=== PATIENT | female | born 1955 | race Caucasian/White ===

== ENCOUNTER 2016-02-04 07:40 | Inpatient (IN) | payer OTHER ==
[2016-02-04] VITALS (9 sets, daily range): BP systolic 107–126; BP diastolic 61–95; PULSE 54–116; TEMP 36.8–38.1; O2SAT 90–95; Ht 165.1 cm; Wt 108.5 kg
[~2016-02-04] VITALS: Ht 165.1 cm; Wt 108.5 kg
[~2016-02-04 07:40] MED LIST: ACET-1256 PO; CHOL100010 PO; DXY100 PO; MULT-506 PO; PRED-301 PO; PXL20 PO; RANI300T2 PO; TPRSR/25 PO; TRAM-10 PO
[2016-02-04] MEDS ORDERED: ALBUT/IPRATROP 3MG/0.5MG NEB 3 ML VIAL INH STA (07:56)
--- NOTE | 2016-02-04 08:04 | EMERGENCY ROOM VISIT NOTE ---
History Report prepared by Rupali: Khadijah Fisher Under the Supervision of: Dr. Michael Kang M.D. First contact with patient: 07:46 Chief Complaint: RESPIRATORY PROBLEMS Stated Complaint: SHORTNESS OF BREATH History of Present Illness The patient is a 60 year old female who presents to the Emergency Room with complaints of persistent shortness of breath that began 2 days ago. Her shortness of breath is worsened with exertion. The patient was admitted to the hospital 2 or 3 weeks ago for frequent PVCs and had an echo, Holter monitor, and nuclear med scan. She also had a chest CT which was negative. She was put on 25 mg of Toprol at that time, which has since increased to 25 mg Toprol in the morning and 25 mg Toprol at night. Since being put on the medication, she has noticed increasing swelling to her bilateral feet. She has also developed redness on the top of her feet to her mid-calves. The patient called Dr. Barkley last week regarding her foot swelling but he did not think it was related to the Toprol. 2 days ago, the patient had a pulmonary function test and had a nebulizer treatment. She notes that later in the evening that day is when she started feeling short of breath. Currently, she has a cough, but she can not cough up any sputum. She feels as if she were able to cough up sputum she would be relieved of her shortness of breath. The patient admits that she is feeling anxious and is unsure if any of her symptoms are related to anxiety. She is on hydrochlorothiazide. She denies any pain. She is not on blood thinners. Source of History: patient Onset: 2 days ago Position: other (Global - SOB) Timing: other (persistent) Modifying Factors (Worsening): exertion Associated Symptoms: + cough Note: Other symptoms: bilateral foot swelling and redness Review of Systems See HPI for pertinent positives & negatives. A total of 10 systems reviewed and were otherwise negative. Past Medical & Surgical Medical Problems: (1) Diabetes (2) Lumbar disc herniation with radiculopathy (3) Shortness of breath (4) SOB (shortness of breath) Surgical Problems: (1) H/O bilateral mastectomy Family History Cancer Heart disease Hypertension Social History Smoking Status: Former Smoker Drug Use: none Marital Status: single Housing Status: lives alone Occupation Status: employed Current/Historical Medications Scheduled Cholecalciferol (Vitamin D), 1,000 UNITS PO DAILY Hydrochlorothiazide (Hydrochlorothiazide), 25 MG PO DAILY Metformin Hcl (Glucophage), 1,000 MG PO BID Metoprolol Succinate (Metoprolol Succinate ER), 25 MG PO DAILY Multivitamin (Multivitamin), 1 TAB PO DAILY Paroxetine (Paroxetine HCl), 20 MG PO QAM Prednisone (Prednisone), 5 MG PO DAILY Ranitidine (Zantac), 300 MG PO DAILY Scheduled PRN Acetaminophen (Tylenol), 1,000 MG PO Q6 PRN for Pain Clonazepam (Clonazepam), 0.5 MG PO DAILY PRN for Anxiety Tramadol (Ultram), 1 TAB PO TID PRN for prn Allergies Coded Allergies: Aspirin (Verified Allergy, Unknown, 02/04/16) Ibuprofen (Verified Allergy, Unknown, 02/04/16) Tamoxifen (Verified Allergy, Unknown, 02/04/16) Physical Exam Vital Signs Date Time Temp Pulse Resp B/P Pulse Ox O2 Delivery O2 Flow Rate FiO2 02/04/16 10:03 105 02/04/16 09:58 109 18 121/62 93 Room Air 02/04/16 09:32 95 Room Air 02/04/16 09:12 104 18 105/71 94 Room Air 02/04/16 08:06 94 Room Air 02/04/16 07:59 109 02/04/16 07:43 36.9 112 20 143/93 95 Physical Exam GENERAL: Patient is a healthy-appearing well-nourished 60 year old female HEAD: Normocephalic atraumatic EYES: Ocular movements intact pupils equal and react to light OROPHARYNX mucous membranes are moist no exudates present no erythema or edema present NECK: Supple no nuchal rigidity CHEST: Good equal expansion LUNGS: Distant breath sounds to auscultation CARDIAC: Normal S1 and S2 ABDOMEN: Soft nontender no guarding BACK: No CVA tenderness EXTREMITIES: No pain upon palpation normal muscle strength in all groups no clubbing or cyanosis. 2+ bilateral pulmonary edema going senior care up her calves and areas of redness extending up the calves as well. NEURO: Patient is following commands is answering questions appropriately. Alert and oriented x3 Cranial Nerves 2-12 grossly intact Medical Decision & Procedures ER Provider Diagnostic Interpretation: X-ray results as stated below per my interpretation and radiologist interpretation. Other radiology results as stated below per my review and radiologist interpretation: CHEST ONE VIEW PORTABLE CLINICAL HISTORY: Pt c/o SOB dyspnea COMPARISON STUDY: 12/26/2015 FINDINGS: Components of congestive heart. Increased prominence of pulmonary vasculature. Mild cardiomegaly. IMPRESSION: Congestive heart failure Electronically signed by: Aguila Estrada M.D. 02/04/2016 8:[address] ANGIOGRAM OF THE CHEST CLINICAL HISTORY: Shortness of breath. Suspected pulmonary embolism. COMPARISON STUDY: 01/04/2016 TECHNIQUE: Following the IV administration of 94 mL of Optiray-320, CT angiogram of the thorax was performed from the thoracic inlet to the lung bases utilizing the pulmonary embolus protocol. Images are reviewed in the axial, sagittal, and coronal planes. IV contrast was administered without complication. MIP imaging was performed. CT DOSE: 564.08 mGycm FINDINGS: There are pathologically enlarged mediastinal and hilar lymph nodes. There is a 2 cm right paratracheal lymph node. The 17 mm subcarinal lymph node. There is a 15 mm right hilar lymph node. There is a 15 mm left hilar lymph node. There is no pathologic axillary lymphadenopathy. There was no evidence of thoracic aortic dilatation. There is respiratory motion artifact limiting evaluation of the lower lobe pulmonary arteries. There are no filling defects to indicate acute pulmonary embolism. No pleural effusions are visualized. There is interlobular septal thickening most pronounced in the upper lung zones. There are groundglass opacities with a slight mosaic pattern again within upper lung zone predominance. There is lingular atelectasis/consolidation. There is left lower lobe linear atelectatic change The heart is enlarged. There is a stable 38 x 23 x 20 mm left anterior chest wall nodule. There is a stable sclerotic lesion involving the left scapular spine IMPRESSION: 1. Study compromised by respiratory motion artifact. No central emboli identified. 2. Persistent interlobular septal thickening with scattered groundglass opacities. 3. Mediastinal and hilar lymphadenopathy 4. Stable 3.8 x 2.3 x 2 cm left anterior chest wall mass 5. Lingular atelectasis/consolidation 6. Stable area of sclerosis involving the left scapular spine Electronically signed by: Kirill Mujica M.D. 02/04/2016 9:11 AM Laboratory Results 02/04/16 08:00 Red Blood Count 4.95, Mean Corpuscular Volume 91.7, Mean Corpuscular Hemoglobin 29.9, Mean Corpuscular Hemoglobin Concent 32.6, Mean Platelet Volume 10.9, Neutrophils (%) (Auto) 75.0, Lymphocytes (%) (Auto) 16.1, Monocytes (%) (Auto) 7.3, Eosinophils (%) (Auto) 0.5, Basophils (%) (Auto) 0.3, Neutrophils # (Auto) 7.71, Lymphocytes # (Auto) 1.65, Monocytes # (Auto) 0.75, Eosinophils # (Auto) 0.05, Basophils # (Auto) 0.03 02/04/16 08:00 Test 02/04/16 07:57 02/04/16 08:00 02/04/16 08:05 02/04/16 09:08 Bedside Hemoglobin 16.3 g/dl (12.0-16.0) Bedside Hematocrit 48 % (37-47) Bedside Sodium 141 mEq/L (135-144) Bedside Potassium 4.1 mEq/L (3.3-5.0) Bedside Chloride 102 mEq/L (101-112) Bedside Total CO2 23 mEq/l (24-31) Bedside Blood Urea Nitrogen 13 mg/dl (7-18) Bedside Creatinine 0.5 mg/dl (0.6-1.3) Bedside Glucose (other) 158 mg/dl (70-99) Bedside Ionized Calcium (Goldy) 1.11 mmol/l (1.12-1.32) White Blood Count 10.27 K/uL (4.8-10.8) Red Blood Count 4.95 M/uL (4.2-5.4) Hemoglobin 14.8 g/dL (12.0-16.0) Hematocrit 45.4 % (37-47) Mean Corpuscular Volume 91.7 fL (80-100) Mean Corpuscular Hemoglobin 29.9 pg (25-34) Mean Corpuscular Hemoglobin Concent 32.6 g/dl (32-36) Platelet Count 296 K/uL (130-400) Mean Platelet Volume 10.9 fL (7.4-10.4) Neutrophils (%) (Auto) 75.0 % Lymphocytes (%) (Auto) 16.1 % Monocytes (%) (Auto) 7.3 % Eosinophils (%) (Auto) 0.5 % Basophils (%) (Auto) 0.3 % Neutrophils # (Auto) 7.71 K/uL (1.4-6.5) Lymphocytes # (Auto) 1.65 K/uL (1.2-3.4) Monocytes # (Auto) 0.75 K/uL (0.11-0.59) Eosinophils # (Auto) 0.05 K/uL (0-0.5) Basophils # (Auto) 0.03 K/uL (0-0.2) RDW Standard Deviation 49.4 fL (36.4-46.3) RDW Coefficient of Variation 14.7 % (11.5-14.5) Immature Granulocyte % (Auto) 0.8 % Immature Granulocyte # (Auto) 0.08 K/uL (0.00-0.02) Anion Gap 11.0 mmol/L (3-11) Est Creatinine Clear Calc Drug Dose 112.4 ml/min Estimated GFR () 110.0 Estimated GFR (Non- 94.9 BUN/Creatinine Ratio 17.3 (10-20) Calcium Level 8.7 mg/dl (8.5-10.1) Total Bilirubin 0.6 mg/dl (0.2-1) Aspartate Amino Transf (AST/SGOT) 34 U/L (15-37) Alanine Aminotransferase (ALT/SGPT) 43 U/L (12-78) Alkaline Phosphatase 64 U/L (45-117) Total Creatine Kinase 64 U/L (26-192) Creatine Kinase MB 1.7 ng/ml (0.5-3.6) Creatine Kinase MB Ratio 2.7 (0-3.0) Troponin I 0.030 ng/ml (0-0.045) Pro-B-Type Natriuretic Peptide 6008 pg/ml (0-900) Total Protein 6.6 gm/dl (6.4-8.2) Albumin 3.3 gm/dl (3.4-5.0) Globulin 3.3 gm/dl (2.5-4.0) Albumin/Globulin Ratio 1.0 (0.9-2) Influenza Type A (RT-PCR) Neg for Influ A (NEG) Influenza Type B (RT-PCR) Neg for Influ B (NEG) Bedside D-Dimer > 450 ng/mlFEU (0-450) Urine Color DK YELLOW Urine Appearance CLEAR (CLEAR) Urine pH 5.0 (4.5-7.5) Urine Specific Minto 1.035 (1.000-1.030) Urine Protein 1+ (NEG) Urine Glucose (UA) NEG (NEG) Urine Ketones TRACE (NEG) Urine Occult Blood NEG (NEG) Urine Nitrite NEG (NEG) Urine Bilirubin NEG (NEG) Urine Urobilinogen NEG (NEG) Urine Leukocyte Esterase NEG (NEG) Urine WBC (Auto) 1-5 /hpf (0-5) Urine RBC (Auto) 0-4 /hpf (0-4) Urine Hyaline Casts (Auto) 5-10 /lpf (0-5) Urine Epithelial Cells (Auto) 20-30 /lpf (0-5) Urine Bacteria (Auto) NEG (NEG) Labs reviewed by ED physician. Medications Administered Medications (Trade) Dose Ordered Sig/Omkar Route Start Time Stop Time Status Last Admin Dose Admin Albuterol/ Ipratropium (Duoneb) 3 ml NOW STAT INH 02/04/16 07:56 02/04/16 07:57 DC 02/04/16 08:04 3 ML Furosemide (Lasix Inj) 40 mg NOW STAT IV 02/04/16 08:30 02/04/16 08:31 DC 02/04/16 08:45 40 MG ECG Indication: SOB/dyspnea Rate (beats per minute): 109 Rhythm: sinus tachycardia Findings: PVC, no acute ischemic change, other (old anterior infarct) ED Course 0748: Past medical records reviewed. The patient was evaluated in room A9. A complete history and physical examination was performed. 0756: Ordered DuoNeb 3 ml INH. 0830: Ordered Lasix Inj 40 mg IV. 0900: Upon reexamination the patient is resting comfortably. I discussed results and treatment plan with the patient. She verbalizes agreement and understanding. 0905: I discussed the case with Dr. Barclay - [facility] [place] [facility]. The patient will be evaluated for further management. Medical Decision Differential diagnosis: Etiologies such as infections, reactive airway disease, pneumonia, pneumothorax , COPD, CHF, cardiac ischemia, pulmonary embolism, musculoskeletal, gastrointestinal, as well as others were entertained. This is a 60-year-old female who presents emergency department complaining of shortness of breath when she walks. This has been progressing to the point that she can no longer walk down the hallway without becoming extremely winded. She has a clear lung exam however the lung sounds are distant. Her chest x- rays concerning for pulmonary edema. She does have an elevation in her d-dimer and therefore was sent for a CAT scan of the chest. This did not reveal any evidence of blood clot. She was given an breathing treatment in the emergency department and was started on Lasix. I did discuss the case with the hospitalist service who agreed to admit the patient. Patient was in agreement with the treatment plan. Consults Time Called: [phone] Consulting Physician: Dr. Deny MENDIOLA Hospitalist Returned Call: [phone] I discussed the case with him. The patient will be evaluated for further management. Impression Primary Impression: CHF exacerbation Scribe Attestation The scribe's documentation has been prepared under my direction and personally reviewed by me in its entirety. I confirm that the note above accurately reflects all work, treatment, procedures, and medical decision making performed by me. Departure Information Dispostion Being Evaluated By Hospitalist Referrals Armand Kearney M.D. (PCP) Patient Instructions A Signature Page, [facility]
--- NOTE | 2016-02-04 08:13 | DIAGNOSTIC IMAGING REPORT ---
CHEST ONE VIEW PORTABLE CLINICAL HISTORY: Pt c/o SOB dyspnea COMPARISON STUDY: 12/26/2015 FINDINGS: Components of congestive heart. Increased prominence of pulmonary vasculature. Mild cardiomegaly. IMPRESSION: Congestive heart failure Electronically signed by: Aguila Estrada M.D. 02/04/2016 8:11 AM
[2016-02-04 08:15] LABS: ISTAT CREATININE 0.5 mg/dl (0.6-1.3); ISTAT HEMOGLOBIN 16.3 g/dl (12.0-16.0); ISTAT IONIZED CALCIUM 1.11 mmol/l (1.12-1.32)
[2016-02-04 08:17] LABS: BASO % 0.3 %; BASO ABS # 0.03 K/uL (0-0.2); COMPLETE YES; EOS % 0.5 %; HEMATOCRIT 45.4 % (37-47); IG% 0.8 %; LYMPH % 16.1 %; LYMPH ABS # 1.65 K/uL (1.2-3.4); MEAN CELL VOLUME 91.7 fL (80-100); MEAN CORPUSCULAR HEMOGLOBIN 29.9 pg (25-34); MEAN CORPUSCULAR HGB CONC 32.6 g/dl (32-36); MEAN PLATELET VOLUME 10.9 fL (7.4-10.4); MONO % 7.3 %; PLATELET COUNT 296 K/uL (130-400); RED BLOOD COUNT 4.95 M/uL (4.2-5.4); WHITE BLOOD COUNT 10.27 K/uL (4.8-10.8)
[2016-02-04] MEDS ORDERED: FUROSEMIDE 40 MG/4 ML VIAL IV STA (08:30)
[2016-02-04] MEDS ORDERED: HYDR25TA5 PO (08:32)
[2016-02-04] MEDS ORDERED: PXL20 PO (08:32)
[2016-02-04] MEDS ORDERED: KLN5X PO (08:33)
[2016-02-04] MEDS ORDERED: METF-384 PO (08:33)
[2016-02-04 08:36] LABS: BUN/CREATININE RATIO 17.3 (10-20); CALCIUM 8.7 mg/dl (8.5-10.1); CREATININE 0.67 mg/dl (0.60-1.20)
[2016-02-04 08:40] LABS: CKMB/CK RATIO 2.7 (0-3.0)
[2016-02-04] MEDS ORDERED: OPTIRAY 320 IV PRN (08:45)
--- NOTE | 2016-02-04 09:13 | DIAGNOSTIC IMAGING REPORT ---
CT ANGIOGRAM OF THE CHEST CLINICAL HISTORY: Shortness of breath. Suspected pulmonary embolism. COMPARISON STUDY: 01/04/2016 TECHNIQUE: Following the IV administration of 94 mL of Optiray-320, CT angiogram of the thorax was performed from the thoracic inlet to the lung bases utilizing the pulmonary embolus protocol. Images are reviewed in the axial, sagittal, and coronal planes. IV contrast was administered without complication. MIP imaging was performed. CT DOSE: 564.08 mGycm FINDINGS: There are pathologically enlarged mediastinal and hilar lymph nodes. There is a 2 cm right paratracheal lymph node. The 17 mm subcarinal lymph node. There is a 15 mm right hilar lymph node. There is a 15 mm left hilar lymph node. There is no pathologic axillary lymphadenopathy. There was no evidence of thoracic aortic dilatation. There is respiratory motion artifact limiting evaluation of the lower lobe pulmonary arteries. There are no filling defects to indicate acute pulmonary embolism. No pleural effusions are visualized. There is interlobular septal thickening most pronounced in the upper lung zones. There are groundglass opacities with a slight mosaic pattern again within upper lung zone predominance. There is lingular atelectasis/consolidation. There is left lower lobe linear atelectatic change The heart is enlarged. There is a stable 38 x 23 x 20 mm left anterior chest wall nodule. There is a stable sclerotic lesion involving the left scapular spine IMPRESSION: 1. Study compromised by respiratory motion artifact. No central emboli identified. 2. Persistent interlobular septal thickening with scattered groundglass opacities. 3. Mediastinal and hilar lymphadenopathy 4. Stable 3.8 x 2.3 x 2 cm left anterior chest wall mass 5. Lingular atelectasis/consolidation 6. Stable area of sclerosis involving the left scapular spine Electronically signed by: Kirill Mujica M.D. 02/04/2016 9:11 AM
[2016-02-04 09:41] LABS: URINE APPEARANCE CLEAR (CLEAR); URINE COLOR DK YELLOW; URINE EPITHELIAL CELL AUTO 20-30 /lpf (0-5); URINE NITRITE NEG (NEG); URINE SPECIFIC GRAVITY 1.035 (1.000-1.030); UROBILINOGEN NEG (NEG)
[2016-02-04 09:46] LABS: MANUAL MICROSCOPIC REQUIRED? NO; REVIEW REQ? NO
[2016-02-04 09:47] LABS: URINE BILIRUBIN NEG (NEG)
[2016-02-04 09:49] LABS: INFLUENZA A PCR Neg for Influ A (NEG); INFLUENZA B PCR Neg for Influ B (NEG)
[2016-02-04] MEDS ORDERED: MAGNESIUM HYDROXIDE SUSP 30 ML UDC PO PRN (10:00)
[2016-02-04] MEDS ORDERED: TRAMADOL HCL 50 MG TAB PO PRN (10:00)
[2016-02-04] MEDS ORDERED: ALUMINUM/MAGNESIUM/SIMETH (MAALOX MAX) 30 ML UDC PO PRN (10:00)
[2016-02-04] MEDS ORDERED: POLYETHYLENE (MIRALAX) 17 GM PACK PO PRN (10:00)
[2016-02-04] MEDS ORDERED: LORAZEPAM 2 MG/ML 1 ML VIAL IV PRN (10:00)
[2016-02-04] MEDS ORDERED: NITROGLYCERIN 0.4 MG SL PER TAB CHARGE SL PRN (10:00)
[2016-02-04] MEDS ORDERED: ONDANSETRON INJ 2 MG/ML 2 ML VIAL IV PRN (10:00)
--- NOTE | 2016-02-04 10:25 | History and Physical ---
History & Physical Date & Time of Service: Feb 04, 2016 at 09:57 Chief Complaint: Shortness Of Breath Primary Care Physician: Armand Kearney M.D. History of Present Illness Source: patient Patient is a pleasant 60 y/o female, with PMHx of DM, diastolic dysfunction, PVC , anxiety, and GERD, who presented to the ED because of worsening SOB x2 days. Her SOB is worsened with exertion. She does not notice any orthopnea. On Sunday (02/01), patient was seen by [facility] dowel machine operator for PFTs and given a nebulizer treatment. She associates her recent SOB to the nebulizer treatment, stating "since I received the nebulizer treatment, my SOB has worsened." Patient also admits to a nonproductive cough and bilateral lower extremity edema. She was admitted on 01/03/16 because of frequent PVCs. She had an extensive workup of Lexiscan stress test, Holter monitor and echocardiogram. Stress test did not show any evidence of WA or ischemia, echocardiogram reports EF of 45-50% and diastolic dysfunction, 24-hour Holter monitor showed frequent PVC and PACs. Patient was placed on Metoprolol 25 mg PO once daily, which was eventually increased to BID. Patient believed her lower extremity swelling was due to the Metoprolol. She contacted Dr. Barkley this week who did not believe the lower extremity edema was due to Metoprolol, but decreased it back to once daily. Patient reports no improvement in her swelling. Additionally, patient states since starting Metoprolol she has had diarrhea 4-5 per day. She denies any recent antibiotic use. She denies any abdominal pain or cramping. She denies fool smelling stool. She denies any weight loss. She denies any history of C.diff. He also added HCTZ PRN for SOB and swelling, but reports no changes in her symptoms. Patient denies any fever, chills, sweats, lightheadedness, dizziness, vision changes, CP, palpitations, wheezing, abdominal pain, nausea, vomiting, urinary symptoms, melena, numbness/tingling, weakness, muscle/joint pain, anxiety/depression, active bleeding, or new skin discoloration/changes. Past Medical/Surgical History Medical Problems: (1) Diabetes Status: Chronic (2) Lumbar disc herniation with radiculopathy Status: Resolved Surgical Problems: (1) H/O bilateral mastectomy Status: Resolved Family History Cancer Heart disease Hypertension Social History Smoking Status: Former Smoker Drug Use: none Marital Status: single Housing status: lives alone Occupational Status: employed Immunizations History of Tetanus Vaccine?: APPROX 10 YRS AGO History of Pneumococcal: No History of Hepatitis B Vaccine: YES UNKNOWN DATE Multi-Drug Resistant Organisms History of MDRO: No Allergies Coded Allergies: Aspirin (Verified Allergy, Unknown, 02/04/16) Ibuprofen (Verified Allergy, Unknown, 02/04/16) Tamoxifen (Verified Allergy, Unknown, 02/04/16) Home Medications Scheduled Cholecalciferol (Vitamin D), 1,000 UNITS PO DAILY Hydrochlorothiazide (Hydrochlorothiazide), 25 MG PO DAILY Metformin Hcl (Glucophage), 1,000 MG PO BID Metoprolol Succinate (Metoprolol Succinate ER), 25 MG PO DAILY Multivitamin (Multivitamin), 1 TAB PO DAILY Paroxetine (Paroxetine HCl), 20 MG PO QAM Prednisone (Prednisone), 5 MG PO DAILY Ranitidine (Zantac), 300 MG PO DAILY Scheduled PRN Acetaminophen (Tylenol), 1,000 MG PO Q6 PRN for Pain Clonazepam (Clonazepam), 0.5 MG PO DAILY PRN for Anxiety Tramadol (Ultram), 1 TAB PO TID PRN for prn Physical Exam Vital Signs Date Time Temp Pulse Resp B/P Pulse Ox O2 Delivery O2 Flow Rate FiO2 02/04/16 09:32 95 Room Air 02/04/16 09:12 104 18 105/71 94 Room Air 02/04/16 08:06 94 Room Air 02/04/16 07:59 109 02/04/16 07:43 36.9 112 20 143/93 95 General Appearance: no apparent distress, + obese Head: normocephalic, atraumatic Eyes: normal inspection, PERRL ENT: hearing grossly normal Neck: supple Respiratory/Chest: no respiratory distress, no accessory muscle use, + decreased breath sounds Cardiovascular: normal peripheral pulses, + tachycardia Abdomen/GI: normal bowel sounds, non tender, soft Back: normal inspection Extremities/Musculoskelatal: no calf tenderness, + pedal edema, + swelling ( bilateral lower extremity non-pitting edema ) Neurologic/Psych: alert, normal mood/affect, oriented x 3 Skin: normal color, warm/dry, no rash Diagnostics Laboratory Results Results Past 24 Hours Test 02/04/16 07:57 02/04/16 08:00 02/04/16 08:05 02/04/16 09:08 Range/Units Bedside Hemoglobin 16.3 12.0-16.0 g/dl Bedside Hematocrit 48 37-47 % Bedside Sodium 141 135-144 mEq/L Bedside Potassium 4.1 3.3-5.0 mEq/L Bedside Chloride 102 101-112 mEq/L Bedside Total CO2 23 24-31 mEq/l Anion Gap 22.0 11.0 3-11 mmol/L Bedside Blood Urea Nitrogen 13 7-18 mg/dl Bedside Creatinine 0.5 0.6-1.3 mg/dl Bedside Glucose (other) 158 70-99 mg/dl Bedside Ionized Calcium (Goldy) 1.11 1.12-1.32 mmol/l White Blood Count 10.27 4.8-10.8 K/uL Red Blood Count 4.95 4.2-5.4 M/uL Hemoglobin 14.8 12.0-16.0 g/dL Hematocrit 45.4 37-47 % Mean Corpuscular Volume 91.7 80-100 fL Mean Corpuscular Hemoglobin 29.9 25-34 pg Mean Corpuscular Hemoglobin Concent 32.6 32-36 g/dl Platelet Count 296 130-400 K/uL Mean Platelet Volume 10.9 7.4-10.4 fL Neutrophils (%) (Auto) 75.0 % Lymphocytes (%) (Auto) 16.1 % Monocytes (%) (Auto) 7.3 % Eosinophils (%) (Auto) 0.5 % Basophils (%) (Auto) 0.3 % Neutrophils # (Auto) 7.71 1.4-6.5 K/uL Lymphocytes # (Auto) 1.65 1.2-3.4 K/uL Monocytes # (Auto) 0.75 0.11-0.59 K/uL Eosinophils # (Auto) 0.05 0-0.5 K/uL Basophils # (Auto) 0.03 0-0.2 K/uL RDW Standard Deviation 49.4 36.4-46.3 fL RDW Coefficient of Variation 14.7 11.5-14.5 % Immature Granulocyte % (Auto) 0.8 % Immature Granulocyte # (Auto) 0.08 0.00-0.02 K/uL Sodium Level 141 136-145 mmol/L Potassium Level 4.0 3.5-5.1 mmol/L Chloride Level 106 98-107 mmol/L Carbon Dioxide Level 24 21-32 mmol/L Blood Urea Nitrogen 12 7-18 mg/dl Creatinine 0.67 0.60-1.20 mg/dl Est Creatinine Clear Calc Drug Dose 112.4 ml/min Estimated GFR () 110.0 Estimated GFR (Non- 94.9 BUN/Creatinine Ratio 17.3 10-20 Random Glucose 148 70-99 mg/dl Calcium Level 8.7 8.5-10.1 mg/dl Total Bilirubin 0.6 0.2-1 mg/dl Aspartate Amino Transf (AST/SGOT) 34 15-37 U/L Alanine Aminotransferase (ALT/SGPT) 43 12-78 U/L Alkaline Phosphatase 64 45-117 U/L Total Creatine Kinase 64 26-192 U/L Creatine Kinase MB 1.7 0.5-3.6 ng/ml Creatine Kinase MB Ratio 2.7 0-3.0 Troponin I 0.030 0-0.045 ng/ml Pro-B-Type Natriuretic Peptide 6008 0-900 pg/ml Total Protein 6.6 6.4-8.2 gm/dl Albumin 3.3 3.4-5.0 gm/dl Globulin 3.3 2.5-4.0 gm/dl Albumin/Globulin Ratio 1.0 0.9-2 Influenza Type A (RT-PCR) Neg for Influ A NEG Influenza Type B (RT-PCR) Neg for Influ B NEG Bedside D-Dimer > 450 0-450 ng/mlFEU Urine Color DK YELLOW Urine Appearance CLEAR CLEAR Urine pH 5.0 4.5-7.5 Urine Specific [place] 1.035 1.000-1.030 Urine Protein 1+ NEG Urine Glucose (UA) NEG NEG Urine Ketones TRACE NEG Urine Occult Blood NEG NEG Urine Nitrite NEG NEG Urine Bilirubin NEG NEG Urine Urobilinogen NEG NEG Urine Leukocyte Esterase NEG NEG Urine WBC (Auto) 1-5 0-5 /hpf Urine RBC (Auto) 0-4 0-4 /hpf Urine Hyaline Casts (Auto) 5-10 0-5 /lpf Urine Epithelial Cells (Auto) 20-30 0-5 /lpf Urine Bacteria (Auto) NEG NEG Diagnostic Radiology CT ANGIOGRAM OF THE CHEST CLINICAL HISTORY: Shortness of breath. Suspected pulmonary embolism. COMPARISON STUDY: 01/04/2016 TECHNIQUE: Following the IV administration of 94 mL of Optiray-320, CT angiogram of the thorax was performed from the thoracic inlet to the lung bases utilizing the pulmonary embolus protocol. Images are reviewed in the axial, sagittal, and coronal planes. IV contrast was administered without complication. MIP imaging was performed. CT DOSE: 564.08 mGycm FINDINGS: There are pathologically enlarged mediastinal and hilar lymph nodes. There is a 2 cm right paratracheal lymph node. The 17 mm subcarinal lymph node. There is a 15 mm right hilar lymph node. There is a 15 mm left hilar lymph node. There is no pathologic axillary lymphadenopathy. There was no evidence of thoracic aortic dilatation. There is respiratory motion artifact limiting evaluation of the lower lobe pulmonary arteries. There are no filling defects to indicate acute pulmonary embolism. No pleural effusions are visualized. There is interlobular septal thickening most pronounced in the upper lung zones. There are groundglass opacities with a slight mosaic pattern again within upper lung zone predominance. There is lingular atelectasis/consolidation. There is left lower lobe linear atelectatic change The heart is enlarged. There is a stable 38 x 23 x 20 mm left anterior chest wall nodule. There is a stable sclerotic lesion involving the left scapular spine IMPRESSION: 1. Study compromised by respiratory motion artifact. No central emboli identified. 2. Persistent interlobular septal thickening with scattered groundglass opacities. 3. Mediastinal and hilar lymphadenopathy 4. Stable 3.8 x 2.3 x 2 cm left anterior chest wall mass 5. Lingular atelectasis/consolidation 6. Stable area of sclerosis involving the left scapular spine Electronically signed by: Kirill Mujica M.D. 02/04/2016 9:11 AM The status of this report is Signed. Draft = Not yet reviewed or approved by Radiologist. Signed = Reviewed and approved by Radiologist. CHEST ONE VIEW PORTABLE CLINICAL HISTORY: Pt c/o SOB dyspnea COMPARISON STUDY: 12/26/2015 FINDINGS: Components of congestive heart. Increased prominence of pulmonary vasculature. Mild cardiomegaly. IMPRESSION: Congestive heart failure Electronically signed by: Aguila Estrada M.D. 02/04/2016 8:11 AM The status of this report is Signed. Draft = Not yet reviewed or approved by Radiologist. Signed = Reviewed and approved by Radiologist. Impression Assessment and Plan 60 y/o female, with PMHx of DM, diastolic dysfunction, PVC, anxiety, and GERD, who presented to the ED because of worsening SOB x2 days. Acute of chronic diastolic dysfunction heart failure; -Admit tele -IV 40 mg Lasix BID -Hold HCTZ 25 mg PO daily PRN -Monitor daily weights and I&Os -Follow PRP Frequent PVCs -Increase Metoprolol Succinate to 50 mg PO daily --Patient was tachycardic on admission. Recently she was on Metoprolol 25 mg PO BID, but Dr. Barkley decreased medication because patient believed it was contributing to bilateral lower extremity edema -Follows with Dr. Barkley DM: -Continue Metformin 1,000 mg PO BID -BSG AC & HS -Sliding insulin scale Anxiety: -Continue Paroxetine 20 mg PO QAM -Add Ativan 1 mg IV q6 hrs PRN for anxiety GERD: -Protonix 40 mg PO QAM Idiopathic Urticaria: -Continue Prednisone 5 mg Po daily GI Prophylaxis: -Maalox PRN -IV Zofran PRN -Colace and/or Milk of Mag PRN DVT prophylaxis: -Early ambulation -WALT and SCDs Code Status: -LEVEL I, FULL Level of Care Telemetry Resuscitation Status FULL RESUSCITATION VTE Prophylaxis VTE Risk Assessment Done? Y/N: Yes Risk Level: Low Given or contraindicated: T.E.D. Stockings, SCD's Reviewed: Pt Seen/Exam by Me, RN Notes, HO Notes, Prior Records, RAD, EKG History I agree with PA H&P with some modifications as below 60 y/o female, with PMHx of DM2, diastolic dysfunction, PVC, anxiety, and GERD, who presented to the ED because of worsening SOB x2 days. Constitutional: denies: chills, fever Respiratory: positive: short of breath, negative: cough Cardiovascular: denies chest pain Gastrointestinal/Abdominal: negative: abdominal pain Genitourinary: negative discharge Musculoskeletal: negative: back pain Neurological/Psych: negative: depressed Hematologic/Lymphatic: negative: anemia General Appearance: WD/WN, no apparent distress Eye Exam: bilateral eye normal inspection Ears, Nose, Throat: hearing grossly normal, pharynx normal Neck: full range of motion, supple Respiratory: normal breath sounds, no respiratory distress Cardiovascular: no edema, no gallop Gastrointestinal: normal bowel sounds, soft Extremities: normal range of motion, normal inspection, pedal edema Neurologic/Psychiatric: alert, oriented x 3 Skin Characteristics: normal color, cyanosis Assessment/Plan 60 y/o female, with PMHx of DM, diastolic dysfunction, PVC, anxiety, and GERD, who presented to the ED because of worsening SOB x2 days. Acute of chronic diastolic dysfunction heart failure; Admit tele cont IV 40 mg Lasix BID, consider switching to po lasix 40 mg daily tomorrow depending on urine output Hold HCTZ 25 mg PO daily PRN Monitor daily weights and I&Os Frequent PVCs Increase Metoprolol Succinate to 50 mg PO daily Follows with Dr. Barkley DM2: hold Metformin 1,000 mg PO BID BSG AC & HS Sliding insulin scale Anxiety: Continue Paroxetine 20 mg PO QAM Ativan 1 mg IV q6 hrs PRN for anxiety GERD: Protonix 40 mg PO QAM Idiopathic Urticaria: Continue Prednisone 5 mg Po daily DVT prophylaxis: Early ambulation WALT and SCDs Code Status:FULL case discussed with ANIL Douglas time spent 40 min
[2016-02-04] MEDS ORDERED: IV FLUIDS COMPLETED PRN (11:15)
[2016-02-04] MEDS: INSULIN ASPART 100 UNITS/ML 3 ML PEN SC SCH ×3 (12:14→20:36)
[2016-02-04] MEDS ORDERED: GLUCOSE 10 TABS/TUBE PO PRN (12:30)
[2016-02-04] MEDS ORDERED: GLUCAGON FOR INJ 1 MG VIAL SQ PRN (12:30)
[2016-02-04] MEDS ORDERED: GLUCOSE 40% GEL 15 GM TUBE PO PRN (12:30)
[2016-02-04] MEDS ORDERED: DEXTROSE 50% 50 ML SYR IV PRN (12:30)
[2016-02-04] MEDS ORDERED: LORAZEPAM 0.5 MG TAB ONE (12:34)
[2016-02-04] MEDS ORDERED: ALBUT/IPRATROP 3MG/0.5MG NEB 3 ML VIAL INH PRN (12:45)
[2016-02-04] MEDS ORDERED: ALBUT/IPRATROP 3MG/0.5MG NEB 3 ML VIAL INH SCH (12:45)
[2016-02-04] MEDS ORDERED: METOPROLOL TARTRATE 1 MG/ML VIAL ONE (15:27)
[2016-02-04] MEDS ORDERED: NURSING VERBAL MED ORDER ONE ×3 (15:30→15:45)
[2016-02-04] MEDS ORDERED: METOPROLOL TARTRATE 50 MG TAB PO ONE (15:30)
[2016-02-04] MEDS: FUROSEMIDE INJ 40 MG in SYRINGE 0 ML IV SCH (15:33)
[2016-02-04] MEDS ORDERED: METOPROLOL SUCC 50MG EXT REL TAB PO ONE (15:45)
[2016-02-04] MEDS ORDERED: PNEUMOCOCCAL ADMINISTRATION CHARGE ONE (16:00)
[2016-02-04] MEDS: METOPROLOL SUCC 25MG EXT REL TAB PO SCH ×2 (16:00→20:12)
[2016-02-04] MEDS ORDERED: PNEUMOCOCCAL POLYSACCHARIDES 25 MCG/0.5 ML VIAL/SYR IM. ONE (16:00)
[2016-02-04] MEDS: LEVALBUTEROL 1.25MG/0.5ML NEB INH SCH ×2 (16:00→23:31)
[2016-02-04] MEDS ORDERED: INFLUENZA VIRUS QUAD VACCINE 0.5 ML SYR IM. ONE (16:00)
[2016-02-04] MEDS: ACETAMINOPHEN 325 MG TAB PO PRN (20:16)
[2016-02-04] MEDS: LEVALBUTEROL 1.25MG/0.5ML NEB INH PRN (20:35)
[2016-02-05] VITALS (18 sets, daily range): BP systolic 89–105; BP diastolic 51–83; PULSE 51–114; TEMP 36.5–38; O2SAT 90–97
[2016-02-05] MEDS: LORAZEPAM 0.5 MG TAB PO PRN ×3 (01:50→14:52)
[2016-02-05] MEDS: LEVALBUTEROL 1.25MG/0.5ML NEB INH PRN ×3 (03:11→12:10)
[2016-02-05 06:44] LABS: BUN/CREATININE RATIO 14.7 (10-20); CALCIUM 8.4 mg/dl (8.5-10.1); CREATININE 0.72 mg/dl (0.60-1.20); POTASSIUM 3.5 mmol/L (3.5-5.1)
[2016-02-05] MEDS: LEVALBUTEROL 1.25MG/0.5ML NEB INH SCH ×3 (06:50→23:33)
[2016-02-05] MEDS: INSULIN ASPART 100 UNITS/ML 3 ML PEN SC SCH ×4 (07:00→20:21)
[2016-02-05] MEDS: PAROXETINE 20 MG TAB PO SCH (08:37)
[2016-02-05] MEDS: FUROSEMIDE INJ 40 MG in SYRINGE 0 ML IV SCH (08:37)
[2016-02-05] MEDS: PANTOprazole SOD 40 MG TAB PO SCH (08:37)
[2016-02-05] MEDS ORDERED: METHYLPREDNISOLONE IV 40 MG in SYRINGE 0 ML IV SCH (08:45)
[2016-02-05] MEDS ORDERED: METOPROLOL SUCC 50MG EXT REL TAB PO SCH (09:00)
--- NOTE | 2016-02-05 09:33 | Hospitalist Progress Note ---
Hospitalist Progress Note Date of Service Feb 05, 2016. (Shira Douglas ., ELIECER) 02/05/16 agree with PA note (Bright Ceballos MD) Subjective Pt evaluation today including: conversation w/ patient, physical exam, chart review, lab review, review of inpatient medication list Voiding: no voiding problems, no incontinence Patient states she is not feeling well. SOB has not improved. DuoNebs seem to help a little. Continued non-productive cough. Leg edema seems mildly improved. Patient denies any fever, chills, sweats, lightheadedness, dizziness, vision changes, CP, palpitations, abdominal pain, nausea, vomiting, diarrhea, urinary symptoms, melena, numbness/tingling, weakness, muscle/joint pain, anxiety/ depression, active bleeding, or new skin discoloration/changes. (Shira Douglas, ELIECER) Pt evaluation today including: conversation w/ patient, physical exam, chart review, review of studies, review of inpatient medication list Constitutional: No fever Eyes: No worsening of vision ENT: No hearing loss Respiratory: + cough, + dyspnea on exertion Abdomen: No pain Musculoskeletal: No joint pain Female : No dysuria Psychiatric: No depression symptoms Endo: No fatigue (Bright Ceballos MD) Medications Current Inpatient Medications Medications (Trade) Dose Ordered Sig/Omkar Route Start Time Stop Time Status Last Admin Dose Admin Ioversol (Optiray 320) 125 ml UD PRN IV 02/04/16 08:45 02/08/16 08:44 Acetaminophen (Tylenol Tab) 650 mg Q4H PRN PO 02/04/16 10:00 03/05/16 09:59 02/04/16 20:16 650 MG Al Hydrox/Mg Hydrox/Simethicone (Maalox Max Susp) 15 ml Q4H PRN PO 02/04/16 10:00 03/05/16 09:59 Magnesium Hydroxide (Milk Of Magnesia Susp) 30 ml Q12H PRN PO 02/04/16 10:00 03/05/16 09:59 Ondansetron HCl (Zofran Inj) 4 mg Q6H PRN IV 02/04/16 10:00 03/05/16 09:59 Nitroglycerin (Nitrostat Tab) 0.4 mg UD PRN SL 02/04/16 10:00 03/05/16 09:59 Polyethylene (Miralax Powder Packet) 17 gm DAILY PRN PO 02/04/16 10:00 03/05/16 09:59 Metformin HCl (Glucophage Tab) 1,000 mg BIDM PO 02/06/16 16:45 03/07/16 16:44 Future Hold Paroxetine HCl (pAXil TAB) 20 mg QAM PO 02/05/16 09:00 03/06/16 08:59 02/05/16 08:37 20 MG Prednisone (PredniSONE TAB) 5 mg DAILY PO 02/05/16 09:00 03/06/16 08:59 Future Hold 02/05/16 08:37 5 MG Tramadol HCl 50 mg 50 mg TID PRN PO 02/04/16 10:00 03/05/16 09:59 Furosemide/Syringe (Lasix Inj/ Syringe) 4 ml @ 4 mls/min BID17 IV 02/04/16 16:00 03/05/16 15:59 02/05/16 08:37 4 MLS/MIN Pantoprazole Sodium (Protonix Tab) 40 mg QAM PO 02/05/16 09:00 03/06/16 08:59 02/05/16 08:37 40 MG Lorazepam (Ativan Inj) 1 mg Q6 PRN IV 02/04/16 10:00 03/05/16 09:59 Insulin Aspart (novoLOG ASPART) SLIDING SCALE G... ACHS SC 02/04/16 11:00 03/05/16 10:59 Miscellaneous (Iv Fluids Completed) 1 ea PRN PRN N/A 02/04/16 11:15 02/03/17 11:14 Glucose (Glucose 40% Gel) 15-30 GRAMS 15 GRAMS... UD PRN PO 02/04/16 12:30 03/05/16 12:29 Glucose (Glucose Chew Tab) 4-8 Tablets 4 Tabl... UD PRN PO 02/04/16 12:30 03/05/16 12:29 Dextrose (Dextrose 50% 50ML Syringe) 25-50ML OF 50% DW IV FOR... UD PRN IV 02/04/16 12:30 03/05/16 12:29 Glucagon (Glucagon Inj) 1 mg UD PRN SQ 02/04/16 12:30 03/05/16 12:29 Lorazepam (Ativan Tab) 0.5 mg Q6H PRN PO 02/04/16 12:45 03/05/16 12:44 02/05/16 08:37 0.5 MG Levalbuterol (Xopenex 1.25MG/ 0.5ML Neb) 1.25 mg Q8R INH 02/04/16 16:00 03/05/16 15:59 02/05/16 06:50 1.25 MG Levalbuterol (Xopenex 1.25MG/ 0.5ML Neb) 1.25 mg Q2R PRN INH 02/04/16 15:30 03/05/16 15:29 02/05/16 03:11 1.25 MG Diltiazem HCl 240 mg 240 mg QAM PO 02/05/16 09:00 03/06/16 08:59 Methylprednisolone Sodium Succinate/ Syringe (Solu-Medrol IV/ Syringe) 0.64 ml @ 1.5 mls/min Q8@0200,1000,1800 IV 02/05/16 10:00 03/06/16 09:59 (Shira Douglas, MADDIEC) Objective Vital Signs Date Time Temp Pulse Resp B/P Pulse Ox O2 Delivery O2 Flow Rate FiO2 02/05/16 07:16 37.6 97 24 96/81 94 Nasal Cannula 2.0 02/05/16 06:50 88 20 90 Room Air 02/05/16 04:27 36.5 103 20 105/83 93 Nasal Cannula 1.0 02/05/16 04:00 93 Nasal Cannula 2.0 02/05/16 03:12 114 20 92 Room Air 02/05/16 00:00 93 Nasal Cannula 2.0 02/04/16 23:31 91 18 95 Nasal Cannula 1.5 02/04/16 23:29 36.9 85 18 107/66 90 Nasal Cannula 2.0 02/04/16 20:35 116 20 91 Room Air 02/04/16 20:00 93 Nasal Cannula 2.0 02/04/16 19:13 38.1 54 18 126/61 93 Nasal Cannula 2.0 02/04/16 16:00 113 18 95 Room Air 02/04/16 16:00 Room Air 02/04/16 15:32 122 125/95 02/04/16 15:19 37.0 110 22 123/95 95 Room Air 02/04/16 12:55 88 18 95 Room Air 02/04/16 11:55 36.8 115 20 120/78 94 Room Air 02/04/16 11:24 110 22 111/77 93 Room Air 02/04/16 10:03 105 02/04/16 09:58 109 18 121/62 93 Room Air 02/04/16 09:32 95 Room Air (Shira Douglas, PA-C) Physical Exam General Appearance: no apparent distress Eyes: normal inspection, PERRL ENT: hearing grossly normal Neck: supple Respiratory/Chest: no respiratory distress, no accessory muscle use, + decreased breath sounds, + wheezing Cardiovascular: regular rate, rhythm Abdomen: normal bowel sounds, non tender, soft Extremities: no calf tenderness, + pedal edema (Bilateral, mildly improved, non -pitting) Neurologic/Psychiatric: alert, normal mood/affect, oriented x 3 Skin: normal color, warm/dry, no rash (Shira Douglas, PA-C) General Appearance: WD/WN, no apparent distress Eyes: normal inspection, EOMI ENT: hearing grossly normal, pharynx normal Neck: supple, no JVD Respiratory/Chest: chest non-tender, + wheezing Cardiovascular: regular rate, rhythm, no gallop Abdomen: normal bowel sounds, soft Extremities: non-tender, normal inspection Neurologic/Psychiatric: invasive manager II-XII nml as tested, alert Skin: warm/dry (Bright Ceballos MD) Laboratory Results Last 24 Hours Test 02/04/16 11:46 02/04/16 16:27 02/04/16 20:34 02/05/16 05:27 Bedside Glucose 159 mg/dl 157 mg/dl 168 mg/dl Sodium Level 140 mmol/L Potassium Level 3.5 mmol/L Chloride Level 102 mmol/L Carbon Dioxide Level 28 mmol/L Anion Gap 10.0 mmol/L Blood Urea Nitrogen 11 mg/dl Creatinine 0.72 mg/dl Est Creatinine Clear Calc Drug Dose 103.4 ml/min Estimated GFR () 104.8 Estimated GFR (Non- 90.4 BUN/Creatinine Ratio 14.7 Random Glucose 151 mg/dl Calcium Level 8.4 mg/dl Test 02/05/16 06:27 Bedside Glucose 152 mg/dl (Shira Douglas, MADDIEC) Assessment and Plan 60 y/o female, with PMHx of DM, diastolic dysfunction, PVC, anxiety, and GERD, who presented to the ED because of worsening SOB x2 days. Acute of chronic diastolic dysfunction heart failure; -Admit tele -IV 40 mg Lasix BID -Hold HCTZ 25 mg PO daily PRN -Monitor daily weights and I&Os -Follow PRP -DuoNeb -Start IV Medrol (02/04) -Fevers; continue to monitor. Follow CBC. ?CXR tomorrow if SOB/wheezing worsens. (02/04) Frequent PVCs -Increase Metoprolol Succinate to 50 mg PO daily --Patient was tachycardic on admission. Recently she was on Metoprolol 25 mg PO BID, but Dr. Barkley decreased medication because patient believed it was contributing to bilateral lower extremity edema --Patient remains tachy. Hold Metoprolol. Start Diltiazem 240 mg PO daily. ( 02/04) -Follows with Dr. Barkley DM: -Hold Metformin 1,000 mg PO BID -BSG AC & HS -Sliding insulin scale Anxiety: -Continue Paroxetine 20 mg PO QAM -Add Ativan 1 mg IV q6 hrs PRN for anxiety GERD: -Protonix 40 mg PO QAM Idiopathic Urticaria: -Continue Prednisone 5 mg Po daily --Hold due to IV Medrol (02/04) GI Prophylaxis: -Maalox PRN -IV Zofran PRN -Colace and/or Milk of Mag PRN DVT prophylaxis: -Early ambulation -WALT and SCDs Code Status: -LEVEL I, FULL Dispo: -Discharge to home once medically stable (Shira Douglas ., PAJosselineC) 60 y/o female, with PMHx of DM, diastolic dysfunction, PVC, anxiety, and GERD, who presented to the ED because of worsening SOB x2 days. Acute of chronic diastolic dysfunction heart failure; cont tele change IV 40 mg Lasix BID to 40 mg po daily tomorrow stop HCTZ 25 mg PO daily PRN check intake and output patient is making good urine check CXR COPD exacerbation due to Bblockers and smoking stop bblockers Start IV SoluMedrol (02/04) cont Xopenex and Ipratropium Fevers; continue to monitor. Follow CBC. ?CXR tomorrow if SOB/wheezing worsens. (02/04) Frequent PVCs stop Metoprolol Succinate to 50 mg PO daily due to COPD exacerbation case discussed with Dr Barkley, will start cardizem po 240 mg instead will follow with Dr. Barkley DM2: expect higher glucose with IV steroids, given one dose of Lantus 8 units Hold Metformin 1,000 mg PO BID BSG AC & HS Sliding insulin scale Anxiety: Continue Paroxetine 20 mg PO QAM continue Ativan 1 mg IV q6 hrs PRN for anxiety GERD: Protonix 40 mg PO QAM Idiopathic Urticaria: hold Prednisone 5 mg Po daily due to IV Medrol (02/04) DVT prophylaxis: WALT and SCDs Code Status: FULL Dispo: Discharge to home once medically stable. hopefully tomorrow (Bright Ceballos MD)
[2016-02-05] MEDS: DILTIAZEM HCL 240 MG CAPCR PO SCH (10:14)
[2016-02-05] MEDS: METHYLPREDNISOLONE IV 40 MG in SYRINGE 0 ML IV SCH ×2 (10:14→17:52)
[2016-02-05] MEDS ORDERED: INSULIN GLARGINE PER UNIT 8 UNITS in SYRINGE 0 ML SC STA (13:57)
[2016-02-05] MEDS: ACETAMINOPHEN 325 MG TAB PO PRN (14:14)
[2016-02-05] MEDS ORDERED: LANTUS PER UNIT CHARGE SQ ONE (14:30)
--- NOTE | 2016-02-05 14:42 | DIAGNOSTIC IMAGING REPORT ---
CHEST ONE VIEW PORTABLE CLINICAL HISTORY: Shortness of breath COMPARISON STUDY: 02/04/2016 FINDINGS: The heart is enlarged. There is radiographic evidence of congestive failure with mild interstitial edema. There is no lobar consolidation. There are no pleural effusions. There are surgical clips in the left axillary region.[ IMPRESSION: Congestive failure with interstitial edema similar to the preceding study Electronically signed by: Kirill Mujica M.D. 02/05/2016 2:40 PM
[2016-02-06] VITALS (16 sets, daily range): BP systolic 98–126; BP diastolic 50–78; PULSE 77–99; TEMP 36.7–37.1; O2SAT 91–96
[2016-02-06] MEDS: METHYLPREDNISOLONE IV 40 MG in SYRINGE 0 ML IV SCH ×2 (04:47→16:44)
[2016-02-06] MEDS: LEVALBUTEROL 1.25MG/0.5ML NEB INH PRN (04:55)
[2016-02-06 06:32] LABS: HEMATOCRIT 45.7 % (37-47); MEAN CORPUSCULAR HEMOGLOBIN 29.6 pg (25-34); MEAN CORPUSCULAR HGB CONC 32.2 g/dl (32-36); MEAN PLATELET VOLUME 11.1 fL (7.4-10.4); PLATELET COUNT 282 K/uL (130-400); RED BLOOD COUNT 4.97 M/uL (4.2-5.4)
[2016-02-06 07:00] LABS: BUN/CREATININE RATIO 17.7 (10-20); CALCIUM 8.7 mg/dl (8.5-10.1); CREATININE 0.84 mg/dl (0.60-1.20); POTASSIUM 3.7 mmol/L (3.5-5.1)
[2016-02-06] MEDS: LEVALBUTEROL 1.25MG/0.5ML NEB INH SCH (07:16)
[2016-02-06] MEDS ORDERED: NovoLIN-N (NPH) PER UNIT CHARGE SC ONE (08:00)
[2016-02-06] MEDS: DILTIAZEM HCL 240 MG CAPCR PO SCH (08:15)
[2016-02-06] MEDS: PANTOprazole SOD 40 MG TAB PO SCH (08:16)
[2016-02-06] MEDS: PAROXETINE 20 MG TAB PO SCH (08:16)
[2016-02-06] MEDS: INSULIN ASPART 100 UNITS/ML 3 ML PEN SC SCH ×4 (08:19→20:55)
[2016-02-06] MEDS ORDERED: FUROSEMIDE 40 MG TAB PO SCH (09:00)
[2016-02-06] MEDS ORDERED: FUROSEMIDE INJ 40 MG in SYRINGE 0 ML IV SCH (09:00)
[2016-02-06] MEDS ORDERED: LEVALBUTEROL 1.25MG/3ML NEB INH PRN (10:30)
[2016-02-06] MEDS ORDERED: METOLAZONE 5 MG TAB PO ONE (12:30)
--- NOTE | 2016-02-06 12:43 | Progress Note ---
Subjective Subjective Date of Service: Feb 06, 2016. Pt evaluation today including: conversation w/ patient, physical exam, chart review, review of studies, review of inpatient medication list Notes: feels that her legs are still swollen Problem List Medical Problems: (1) CHF exacerbation Status: Acute (2) Congestive heart failure Status: Acute (3) Frequent PVCs Status: Acute Review of Systems Constitutional: No fever ENT: No hearing loss Respiratory: No cough Abdomen: No pain Female : No dysuria Neurologic: No memory loss Psychiatric: No depression symptoms Endo: No fatigue Physical Exam Vital Signs Vital Signs Past 24 Hours: Date Time Temp Pulse Resp B/P Pulse Ox O2 Delivery O2 Flow Rate FiO2 02/06/16 12:00 37.1 83 18 99/57 96 Nasal Cannula 02/06/16 08:00 93 Nasal Cannula 2.0 02/06/16 07:55 36.7 99 28 126/66 92 Nasal Cannula 1.0 Humidified Oxygen 02/06/16 07:16 77 18 95 Nasal Cannula 1.0 02/06/16 04:55 90 18 91 Nasal Cannula 1.0 02/06/16 04:36 36.7 82 18 121/78 93 Room Air 02/06/16 04:00 93 Nasal Cannula 2.0 02/06/16 00:00 93 Nasal Cannula 2.0 02/05/16 23:33 76 18 93 Nasal Cannula 1.0 02/05/16 23:21 36.8 71 20 96/77 90 Nasal Cannula 1.0 02/05/16 20:15 36.6 80 22 89/51 92 Nasal Cannula 2.0 02/05/16 20:00 93 Nasal Cannula 2.0 02/05/16 16:08 77 18 93 Nasal Cannula 1.0 02/05/16 16:00 92 Nasal Cannula 2.0 02/05/16 15:49 36.5 93 19 101/64 96 Nasal Cannula 9.0 Physical Exam: General Appearance: WD/WN, no apparent distress Eyes: bilateral eyes normal inspection ENT: hearing grossly normal, pharynx normal Neck: supple, no JVD Respiratory/Chest: no accessory muscle use, + rales, + wheezing Cardiovascular: regular rate, rhythm Abdomen: normal bowel sounds Extremities: + pedal edema Neurologic/Psychiatric: alert, oriented x 3 Medications Medications: Current Inpatient Medications Medications (Trade) Dose Ordered Sig/Omkar Route Start Time Stop Time Status Last Admin Dose Admin Ioversol (Optiray 320) 125 ml UD PRN IV 02/04/16 08:45 02/08/16 08:44 Acetaminophen (Tylenol Tab) 650 mg Q4H PRN PO 02/04/16 10:00 03/05/16 09:59 02/05/16 14:14 650 MG Al Hydrox/Mg Hydrox/Simethicone (Maalox Max Susp) 15 ml Q4H PRN PO 02/04/16 10:00 03/05/16 09:59 Magnesium Hydroxide (Milk Of Magnesia Susp) 30 ml Q12H PRN PO 02/04/16 10:00 03/05/16 09:59 Ondansetron HCl (Zofran Inj) 4 mg Q6H PRN IV 02/04/16 10:00 03/05/16 09:59 Nitroglycerin (Nitrostat Tab) 0.4 mg UD PRN SL 02/04/16 10:00 03/05/16 09:59 Polyethylene (Miralax Powder Packet) 17 gm DAILY PRN PO 02/04/16 10:00 03/05/16 09:59 Metformin HCl (Glucophage Tab) 1,000 mg BIDM PO 02/06/16 16:45 03/07/16 16:44 Future Hold Paroxetine HCl (pAXil TAB) 20 mg QAM PO 02/05/16 09:00 03/06/16 08:59 02/06/16 08:16 20 MG Prednisone (PredniSONE TAB) 5 mg DAILY PO 02/05/16 09:00 03/06/16 08:59 Future Hold 02/05/16 08:37 5 MG Tramadol HCl (Ultram Tab) 50 mg TID PRN PO 02/04/16 10:00 03/05/16 09:59 Pantoprazole Sodium (Protonix Tab) 40 mg QAM PO 02/05/16 09:00 03/06/16 08:59 02/06/16 08:16 40 MG Lorazepam (Ativan Inj) 1 mg Q6 PRN IV 02/04/16 10:00 03/05/16 09:59 Insulin Aspart (novoLOG ASPART) SLIDING SCALE G... ACHS SC 02/04/16 11:00 02/06/16 12:11 3 UNITS Miscellaneous (Iv Fluids Completed) 1 ea PRN PRN N/A 02/04/16 11:15 02/03/17 11:14 Glucose (Glucose 40% Gel) 15-30 GRAMS 15 GRAMS... UD PRN PO 02/04/16 12:30 03/05/16 12:29 Glucose (Glucose Chew Tab) 4-8 Tablets 4 Tabl... UD PRN PO 02/04/16 12:30 03/05/16 12:29 Dextrose (Dextrose 50% 50ML Syringe) 25-50ML OF 50% DW IV FOR... UD PRN IV 02/04/16 12:30 03/05/16 12:29 Glucagon (Glucagon Inj) 1 mg UD PRN SQ 02/04/16 12:30 03/05/16 12:29 Lorazepam (Ativan Tab) 0.5 mg Q6H PRN PO 02/04/16 12:45 03/05/16 12:44 02/05/16 14:52 0.5 MG Diltiazem HCl 240 mg 240 mg QAM PO 02/05/16 09:00 03/06/16 08:59 02/06/16 08:15 240 MG Furosemide 40 mg/ Syringe 4 ml @ 4 mls/min BID@0900,1700 IV 02/06/16 17:00 03/07/16 16:59 Methylprednisolone Sodium Succinate/ Syringe (Solu-Medrol IV/ Syringe) 0.64 ml @ 1.5 mls/min Q12H IV 02/06/16 16:00 03/07/16 15:59 Insulin Human NPH (novoLIN-N NPH) 5 units BIDM SC 02/06/16 16:45 03/07/16 16:44 Levalbuterol (Xopenex 1.25MG/ 3ML Neb) 1.25 mg Q8R INH 02/06/16 10:17 03/07/16 10:16 Levalbuterol (Xopenex 1.25MG/ 3ML Neb) 1.25 mg Q2R PRN INH 02/06/16 10:30 03/07/16 10:29 Furosemide (Lasix Inj) 40 mg TODAY@1300 ONCE IV 02/06/16 13:00 02/06/16 13:01 Laboratory Data Labs: Last 24 Hours Test 02/05/16 16:26 02/05/16 20:17 02/06/16 05:28 02/06/16 06:28 Bedside Glucose 181 mg/dl 205 mg/dl 184 mg/dl White Blood Count 9.60 K/uL Red Blood Count 4.97 M/uL Hemoglobin 14.7 g/dL Hematocrit 45.7 % Mean Corpuscular Volume 92.0 fL Mean Corpuscular Hemoglobin 29.6 pg Mean Corpuscular Hemoglobin Concent 32.2 g/dl RDW Standard Deviation 49.9 fL RDW Coefficient of Variation 14.8 % Platelet Count 282 K/uL Mean Platelet Volume 11.1 fL Sodium Level 139 mmol/L Potassium Level 3.7 mmol/L Chloride Level 100 mmol/L Carbon Dioxide Level 29 mmol/L Anion Gap 10.0 mmol/L Blood Urea Nitrogen 15 mg/dl Creatinine 0.84 mg/dl Est Creatinine Clear Calc Drug Dose 88.4 ml/min Estimated GFR () 86.9 Estimated GFR (Non- 75.0 BUN/Creatinine Ratio 17.7 Random Glucose 176 mg/dl Calcium Level 8.7 mg/dl Test 02/06/16 11:17 Bedside Glucose 204 mg/dl Assessment and Plan 60 y/o female, with PMHx of DM2, diastolic dysfunction, PVC, anxiety, and GERD, who presented to the ED because of worsening SOB x2 days. Acute of chronic diastolic dysfunction heart failure; cont tele IV 40 mg Lasix BID, given extra dose of IV lasix with metolazone po at noon stop HCTZ 25 mg PO daily PRN check intake and output patient is making good urine CXR: Congestive failure with interstitial edema similar to the preceding study repeat CXR in am COPD exacerbation due to Bblockers and smoking stop bblockers cont IV SoluMedrol, decrease to q12h (02/04) cont Xopenex and Ipratropium Fevers; continue to monitor. Follow CBC. ?CXR tomorrow if SOB/wheezing worsens. (02/04) Frequent PVCs stop Metoprolol Succinate to 50 mg PO daily due to COPD exacerbation case discussed with Dr Barkley, continue cardizem po 240 mg instead will follow with Dr. Barkley DM2: expect higher glucose with IV steroids, start nph 5 units bid Hold Metformin 1,000 mg PO BID BSG AC & HS Sliding insulin scale with CC 30 and CR 12 Anxiety: Continue Paroxetine 20 mg PO QAM continue Ativan 1 mg IV q6 hrs PRN for anxiety GERD: Protonix 40 mg PO QAM Idiopathic Urticaria: hold Prednisone 5 mg Po daily due to IV Medrol (02/04) DVT prophylaxis: WALT and SCDs Code Status: FULL Dispo: Discharge to home once medically stable. hopefully tomorrow
[2016-02-06] MEDS ORDERED: FUROSEMIDE 40 MG/4 ML VIAL IV ONE (13:00)
[2016-02-06] MEDS ORDERED: FUROSEMIDE INJ 40 MG in SYRINGE 0 ML IV ONE (13:30)
[2016-02-06] MEDS: LEVALBUTEROL 1.25MG/3ML NEB INH SCH ×2 (15:53→23:18)
[2016-02-06] MEDS ORDERED: METFORMIN HCL 500 MG TAB PO SCH (16:45)
[2016-02-06] MEDS: FUROSEMIDE INJ 40 MG in SYRINGE 0 ML IV SCH (17:00)
[2016-02-06] MEDS: INSULIN HUMAN NPH SC SCH (17:31)
[2016-02-06] MEDS: LORAZEPAM 0.5 MG TAB PO PRN (19:25)
[2016-02-07] VITALS (12 sets, daily range): BP systolic 107–121; BP diastolic 67–104; PULSE 82–94; TEMP 36.5–37.1; O2SAT 92–98
[2016-02-07] MEDS: METHYLPREDNISOLONE IV 40 MG in SYRINGE 0 ML IV SCH ×2 (04:10→16:07)
[2016-02-07 06:22] LABS: HEMATOCRIT 44.6 % (37-47); MEAN CELL VOLUME 92.1 fL (80-100); MEAN CORPUSCULAR HEMOGLOBIN 30.2 pg (25-34); MEAN CORPUSCULAR HGB CONC 32.7 g/dl (32-36); MEAN PLATELET VOLUME 10.6 fL (7.4-10.4); PLATELET COUNT 330 K/uL (130-400); RED BLOOD COUNT 4.84 M/uL (4.2-5.4); WHITE BLOOD COUNT 19.56 K/uL (4.8-10.8)
[2016-02-07 06:49] LABS: BUN/CREATININE RATIO 29.4 (10-20); CALCIUM 8.7 mg/dl (8.5-10.1); CREATININE 0.82 mg/dl (0.60-1.20); POTASSIUM 3.7 mmol/L (3.5-5.1)
[2016-02-07] MEDS: LEVALBUTEROL 1.25MG/3ML NEB INH SCH ×3 (07:10→23:45)
[2016-02-07] MEDS: DILTIAZEM HCL 240 MG CAPCR PO SCH (07:29)
[2016-02-07] MEDS: PANTOprazole SOD 40 MG TAB PO SCH (07:29)
[2016-02-07] MEDS: FUROSEMIDE INJ 40 MG in SYRINGE 0 ML IV SCH ×2 (07:29→17:08)
[2016-02-07] MEDS: PAROXETINE 20 MG TAB PO SCH (07:30)
[2016-02-07] MEDS: INSULIN HUMAN NPH SC SCH ×2 (07:32→17:14)
[2016-02-07] MEDS: INSULIN ASPART 100 UNITS/ML 3 ML PEN SC SCH ×4 (07:32→21:00)
--- NOTE | 2016-02-07 07:38 | DIAGNOSTIC IMAGING REPORT ---
CHEST ONE VIEW PORTABLE CLINICAL HISTORY: Congestive heart failure. COMPARISON STUDY: Chest CT February 04, 2016 and chest radiograph February 05, 2016. FINDINGS: Left axillary surgical clips are again noted. There is no pneumothorax. No definite pleural effusion is identified. Interstitial thickening persists. Cardiomegaly is unchanged. IMPRESSION: No significant change in interstitial thickening. The appearance favors pulmonary edema. An infectious process could appear similar. Electronically signed by: Gabe Ramirez M.D. 02/07/2016 7:36 AM
[2016-02-07 07:51] LABS: ESTIMATED AVERAGE GLUCOSE 151 mg/dl; HA1C FLAG Normal (Normal)
[2016-02-07] MEDS: ACETAMINOPHEN 325 MG TAB PO PRN (08:35)
[2016-02-07] MEDS: METOLAZONE 5 MG TAB PO SCH (08:36)
[2016-02-07] MEDS: LORAZEPAM 0.5 MG TAB PO PRN ×2 (12:04→21:32)
--- NOTE | 2016-02-07 14:12 | Progress Note ---
Subjective Subjective Date of Service: Feb 07, 2016. Pt evaluation today including: conversation w/ patient, physical exam, chart review, review of studies, review of inpatient medication list Notes: refused metalazone, making good urine Problem List Medical Problems: (1) CHF exacerbation Status: Acute (2) Congestive heart failure Status: Acute (3) Frequent PVCs Status: Acute Review of Systems Constitutional: No fever, No weight loss ENT: No hearing loss, No sore throat Cardiac: No chest pain, No edema Abdomen: No pain Female : No dysuria Neurologic: No memory loss Psychiatric: No depression symptoms Endo: No fatigue Skin: No rash Physical Exam Vital Signs Vital Signs Past 24 Hours: Date Time Temp Pulse Resp B/P Pulse Ox O2 Delivery O2 Flow Rate FiO2 02/07/16 12:00 Nasal Cannula 2.0 02/07/16 11:51 36.7 90 20 117/78 98 Nasal Cannula 2.0 Humidified Oxygen 02/07/16 08:00 92 Room Air 02/07/16 07:13 37.1 88 20 121/88 92 Room Air 02/07/16 07:10 94 18 92 Room Air 02/07/16 04:08 36.5 86 16 112/67 95 Nasal Cannula 2.0 02/07/16 04:00 96 Nasal Cannula 2.0 02/07/16 00:00 96 Nasal Cannula 2.0 02/06/16 23:23 36.7 86 22 119/69 94 Nasal Cannula 2.0 02/06/16 23:18 83 18 96 Nasal Cannula 1.0 02/06/16 20:00 96 Nasal Cannula 2.0 02/06/16 19:51 36.7 83 20 106/50 93 Nasal Cannula 2.0 02/06/16 16:09 37.1 81 22 98/59 96 Nasal Cannula 2.0 02/06/16 16:00 93 Nasal Cannula 2.0 02/06/16 15:53 77 18 95 Nasal Cannula 1.0 02/06/16 14:01 108/73 Physical Exam: General Appearance: WD/WN, no apparent distress Eyes: bilateral eyes normal inspection ENT: hearing grossly normal, pharynx normal Neck: supple, no JVD Respiratory/Chest: chest non-tender, + crackles Cardiovascular: regular rate, rhythm Abdomen: normal bowel sounds Extremities: + pedal edema Neurologic/Psychiatric: alert Skin: normal color Medications Medications: Current Inpatient Medications Medications (Trade) Dose Ordered Sig/Omkar Route Start Time Stop Time Status Last Admin Dose Admin Ioversol (Optiray 320) 125 ml UD PRN IV 02/04/16 08:45 02/08/16 08:44 Acetaminophen (Tylenol Tab) 650 mg Q4H PRN PO 02/04/16 10:00 03/05/16 09:59 02/07/16 08:35 650 MG Al Hydrox/Mg Hydrox/Simethicone (Maalox Max Susp) 15 ml Q4H PRN PO 02/04/16 10:00 03/05/16 09:59 Magnesium Hydroxide (Milk Of Magnesia Susp) 30 ml Q12H PRN PO 02/04/16 10:00 03/05/16 09:59 Ondansetron HCl (Zofran Inj) 4 mg Q6H PRN IV 02/04/16 10:00 03/05/16 09:59 Nitroglycerin (Nitrostat Tab) 0.4 mg UD PRN SL 02/04/16 10:00 03/05/16 09:59 Polyethylene (Miralax Powder Packet) 17 gm DAILY PRN PO 02/04/16 10:00 03/05/16 09:59 Metformin HCl (Glucophage Tab) 1,000 mg BIDM PO 02/06/16 16:45 03/07/16 16:44 Future Hold Paroxetine HCl (pAXil TAB) 20 mg QAM PO 02/05/16 09:00 03/06/16 08:59 02/07/16 07:30 20 MG Prednisone (PredniSONE TAB) 5 mg DAILY PO 02/05/16 09:00 03/06/16 08:59 Future Hold 02/05/16 08:37 5 MG Tramadol HCl (Ultram Tab) 50 mg TID PRN PO 02/04/16 10:00 03/05/16 09:59 Pantoprazole Sodium (Protonix Tab) 40 mg QAM PO 02/05/16 09:00 03/06/16 08:59 02/07/16 07:29 40 MG Lorazepam (Ativan Inj) 1 mg Q6 PRN IV 02/04/16 10:00 03/05/16 09:59 Insulin Aspart (novoLOG ASPART) SLIDING SCALE G... ACHS SC 02/04/16 11:00 1/2/17 12:06 4 UNITS Miscellaneous (Iv Fluids Completed) 1 ea PRN PRN N/A 02/04/16 11:15 02/03/17 11:14 Glucose (Glucose 40% Gel) 15-30 GRAMS 15 GRAMS... UD PRN PO 02/04/16 12:30 03/05/16 12:29 Glucose (Glucose Chew Tab) 4-8 Tablets 4 Tabl... UD PRN PO 02/04/16 12:30 03/05/16 12:29 Dextrose (Dextrose 50% 50ML Syringe) 25-50ML OF 50% DW IV FOR... UD PRN IV 02/04/16 12:30 03/05/16 12:29 Glucagon (Glucagon Inj) 1 mg UD PRN SQ 02/04/16 12:30 03/05/16 12:29 Lorazepam (Ativan Tab) 0.5 mg Q6H PRN PO 02/04/16 12:45 03/05/16 12:44 02/07/16 12:04 0.5 MG Diltiazem HCl 240 mg 240 mg QAM PO 02/05/16 09:00 03/06/16 08:59 02/07/16 07:29 240 MG Furosemide 40 mg/ Syringe 4 ml @ 4 mls/min BID@0900,1700 IV 02/06/16 17:00 03/07/16 16:59 02/07/16 07:29 4 MLS/MIN Methylprednisolone Sodium Succinate/ Syringe (Solu-Medrol IV/ Syringe) 0.64 ml @ 1.5 mls/min Q12H IV 02/06/16 16:00 03/07/16 15:59 02/07/16 04:10 1.5 MLS/MIN Insulin Human NPH (novoLIN-N NPH) 5 units BIDM SC 02/06/16 16:45 03/07/16 16:44 02/07/16 07:32 5 UNITS Levalbuterol (Xopenex 1.25MG/ 3ML Neb) 1.25 mg Q8R INH 02/06/16 10:17 03/07/16 10:16 02/07/16 07:10 1.25 MG Levalbuterol (Xopenex 1.25MG/ 3ML Neb) 1.25 mg Q2R PRN INH 02/06/16 10:30 03/07/16 10:29 Metolazone (Zaroxolyn Tab) 5 mg QAM PO 02/07/16 09:00 03/08/16 08:59 Laboratory Data Labs: Last 24 Hours Test 02/06/16 16:13 02/06/16 19:55 02/07/16 06:02 02/07/16 06:56 Bedside Glucose 162 mg/dl 181 mg/dl 198 mg/dl White Blood Count 19.56 K/uL Red Blood Count 4.84 M/uL Hemoglobin 14.6 g/dL Hematocrit 44.6 % Mean Corpuscular Volume 92.1 fL Mean Corpuscular Hemoglobin 30.2 pg Mean Corpuscular Hemoglobin Concent 32.7 g/dl RDW Standard Deviation 50.6 fL RDW Coefficient of Variation 15.0 % Platelet Count 330 K/uL Mean Platelet Volume 10.6 fL Sodium Level 140 mmol/L Potassium Level 3.7 mmol/L Chloride Level 101 mmol/L Carbon Dioxide Level 30 mmol/L Anion Gap 9.0 mmol/L Blood Urea Nitrogen 24 mg/dl Creatinine 0.82 mg/dl Est Creatinine Clear Calc Drug Dose 90.5 ml/min Estimated GFR () 89.5 Estimated GFR (Non- 77.2 BUN/Creatinine Ratio 29.4 Random Glucose 190 mg/dl Calcium Level 8.7 mg/dl Magnesium Level 1.9 mg/dl Test 02/07/16 11:14 Bedside Glucose 195 mg/dl Assessment and Plan 60 y/o female, with PMHx of DM2, diastolic dysfunction, PVC, anxiety, and GERD, who presented to the ED because of worsening SOB x2 days. Acute of chronic diastolic dysfunction heart failure; cont tele IV 40 mg Lasix BID stop HCTZ 25 mg PO daily PRN check intake and output patient is making good urine CXR: Congestive failure with interstitial edema similar to the preceding study COPD exacerbation due to Bblockers and smoking stop bblockers cont IV SoluMedrol, q12h (02/04) cont Xopenex and Ipratropium will need a script for o2 with ambulation Fevers; continue to monitor. Follow CBC. ?CXR tomorrow if SOB/wheezing worsens. (02/04) Frequent PVCs stop Metoprolol Succinate to 50 mg PO daily due to COPD exacerbation case discussed with Dr Barkley, continue cardizem po 240 mg instead will follow with Dr. Barkley check magnesium DM2: expect higher glucose with IV steroids, start nph 5 units bid Hold Metformin 1,000 mg PO BID BSG AC & HS Sliding insulin scale with CC 30 and CR 12 Anxiety: Continue Paroxetine 20 mg PO QAM continue Ativan 1 mg IV q6 hrs PRN for anxiety GERD: Protonix 40 mg PO QAM Idiopathic Urticaria: hold Prednisone 5 mg Po daily due to IV Medrol (02/04) DVT prophylaxis: WALT and SCDs Code Status: FULL Dispo: Discharge to home once medically stable. hopefully next few days
[2016-02-07] MEDS: MAGNESIUM OXIDE 400 MG TAB PO SCH (15:06)
[2016-02-08] VITALS (10 sets, daily range): BP systolic 104–135; BP diastolic 58–94; PULSE 74–106; TEMP 36.8–37; O2SAT 89–98
[2016-02-08] MEDS: METHYLPREDNISOLONE IV 40 MG in SYRINGE 0 ML IV SCH (03:54)
[2016-02-08 06:39] LABS: HEMATOCRIT 43.7 % (37-47); MEAN CELL VOLUME 92.2 fL (80-100); MEAN CORPUSCULAR HEMOGLOBIN 29.7 pg (25-34); MEAN CORPUSCULAR HGB CONC 32.3 g/dl (32-36); MEAN PLATELET VOLUME 10.6 fL (7.4-10.4); PLATELET COUNT 305 K/uL (130-400); RED BLOOD COUNT 4.74 M/uL (4.2-5.4); WHITE BLOOD COUNT 16.89 K/uL (4.8-10.8)
[2016-02-08] MEDS: LEVALBUTEROL 1.25MG/3ML NEB INH SCH ×3 (07:15→23:30)
[2016-02-08 08:58] LABS: BUN/CREATININE RATIO 30.5 (10-20); CALCIUM 8.6 mg/dl (8.5-10.1); CREATININE 0.73 mg/dl (0.60-1.20); POTASSIUM 3.4 mmol/L (3.5-5.1)
[2016-02-08] MEDS: PAROXETINE 20 MG TAB PO SCH (08:58)
[2016-02-08] MEDS: MAGNESIUM OXIDE 400 MG TAB PO SCH (08:59)
[2016-02-08] MEDS: PANTOprazole SOD 40 MG TAB PO SCH (08:59)
[2016-02-08] MEDS: DILTIAZEM HCL 240 MG CAPCR PO SCH (09:00)
[2016-02-08] MEDS: INSULIN ASPART 100 UNITS/ML 3 ML PEN SC SCH ×4 (09:06→20:17)
[2016-02-08] MEDS: METOLAZONE 5 MG TAB PO SCH (09:08)
[2016-02-08] MEDS ORDERED: POTASSIUM CHLORIDE 10 MEQ TABCR PO ONE (09:19)
[2016-02-08] MEDS: AMOXICILLIN/CLAVULANATE TAB 875 MG TAB PO SCH ×2 (09:42→15:55)
[2016-02-08] MEDS: FUROSEMIDE 40 MG TAB PO SCH (09:42)
--- NOTE | 2016-02-08 10:06 | DIAGNOSTIC IMAGING REPORT ---
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 Moderate prominence of pulmonary vasculature is stable from the prior study. Diaphragms smooth. The patient is status post left axillary dissection. IMPRESSION: Mild congestive failure versus mild pulmonary edematous change. Stable to minimally improved exam compared to the prior study Electronically signed by: Aguila Estrada M.D. 02/08/2016 10:05 AM
--- NOTE | 2016-02-08 11:46 | PULMONARY CONSULTATION ---
DATE OF CONSULTATION: 02/08/2016 TIME: 9:25 a.m. REPORT OF CONSULTATION: The patient was seen in room #204. She is a 60-year-old female who was admitted on 02/04/2016 with increasing shortness of breath and a dry cough. Her history is that she had been hospitalized for an overnight stay in December regarding cardiac arrhythmia. She had PVCs and PACs. She was having palpitations at that time. She thought initially she was having some panic attacks. She had had increasing shortness of breath at that time. She underwent an outpatient evaluation. She had a stress test done that she states was not significantly abnormal. Reportedly, an echo showed an ejection fraction of 45-50% with some degree of diastolic dysfunction. It was not felt that she had ischemia. She was placed on metoprolol 25 mg daily that subsequently was increased to b.i.d. She has a history of some chronic lower extremity swelling but it seemed to get worse. She thought it might be due to the metoprolol. She did not feel all that great. Around [place] time, she then developed vomiting and diarrhea for a day or two. Subsequently, she developed worsening shortness of breath. Her shortness of breath was even at rest or with relatively mild exertion. She had a fever at the time of this admission. Her maximum temperature was 38.1. The fevers seemed to have subsided. She has not coughed up any phlegm. She feels like she wishes she could expectorate phlegm. She has not had any hemoptysis. She has not had chills or fevers. Her energy level has been somewhat lower than normal. The patient has been a long-term smoker of about 1 pack per day for probably 40 years. She quit smoking about 6 days ago or so. The patient did undergo pulmonary function testing last week as an outpatient. This showed predominantly a moderate restrictive pattern. The forced vital capacity was 56% of predicted and the FEV1 was 53% of predicted with an FEV1/FVC ratio of 74%. There was a very mild obstructive component. There was no significant change following bronchodilators. Diffusion was low at 48% but was 83% when corrected for alveolar ventilation. The patient believes that when she had her nebulizer treatment as part of her postbronchodilator study, that she felt worse afterwards. She thought it was contributing to her shortness of breath. She is now feeling moderately better. She is still short of breath with exertion. She had a 2 step that showed a drop in saturations to 88%. PAST SURGICAL HISTORY: 1. Right and left mastectomy in 1995. She had a primary left breast cancer treated with surgery and chemotherapy. 2. Hysterectomy in 1995. 3. Laminectomy in 1983. PAST MEDICAL HISTORY: 1. Diabetes mellitus. 2. Diastolic dysfunction. 3. Cardiac arrhythmia with PVCs. 4. Anxiety. 5. Herniated lumbar disc. 6. Idiopathic urticaria for many years. SOCIAL HISTORY: Tobacco use as noted above. ETOH -- none. 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 FAMILY HISTORY: Prominent for breast cancer. Mother at age 56 from breast cancer and she has a sister living with breast cancer. Father at 86 with aortic stenosis. ALLERGIES: ASPIRIN, IBUPROFEN, BOTH OF WHICH WERE THOUGHT TO PERHAPS CONTRIBUTE TO THE URTICARIA. SHE IS ALSO ALLERGIC TO TAMOXIFEN, HAVING SOME VISION LOSS. REVIEW OF SYSTEMS: The patient's energy level is decreased as noted. There has been no syncope or near syncope. There have been no ophthalmic complaints. She does have nasal congestion. She does not know if she snores. She denies sleep disorders such as insomnia or disturbed nocturnal sleep or excessive daytime somnolence. Appetite has been okay. She has had some weight loss which she attributes to improvement in peripheral edema. Since the apparent viral gastroenteritis at [place], she has not had any bowel complaints. Denies urinary problems. She has chronic back problems as noted above. There have been no rashes. There has been no lymphadenopathy. The remainder of the review of systems is negative. Ten systems were reviewed. PHYSICAL EXAMINATION: VITAL SIGNS: The patient is a 60-year-old female who was cooperative, alert and oriented. She was in no distress. She appeared mildly anxious. HEENT: Pupils were reactive to light. Nares were clear. Mouth exam showed dentures on top. She was a Mallampati grade 2 pharynx. NECK: Palpation of the neck revealed no lymph nodes or masses. CHEST: Inspection of the chest revealed evidence of prior breast surgery bilaterally. She states that this is unchanged from before. She does have continued checkups with her primary doctor for breast cancer followup. Current temperature is 36.9. HEART: Rate was 96 per minute. Rhythm was regular. Blood pressure 104/73. LUNGS: Lung hughes revealed mild wheezing. This was greater on the left than on the right. It was heard posteriorly. Respiratory rate was 18 breaths per minute. Oxygen saturation was 96% on 2 liters. ABDOMEN: Soft. Bowel sounds were normal. There was no tenderness to palpation. There was mild fullness in the right upper quadrant that I did not feel quite the same in the left upper quadrant. It was nonspecific. There was no tenderness as noted. EXTREMITIES: Revealed +2 edema of both lower extremities. There was no cyanosis or clubbing. Chest x-rays have been done serially and show some increased prominence of pulmonary vasculature suggesting CHF. She did have a CAT scan of the chest done 02/04/2016. There was no evidence of pulmonary embolic disease. She did, however, have mediastinal adenopathy. There was a 2 cm right paratracheal lymph node with a 17 mm subcarinal lymph node, a 15 mm right hilar lymph node and a 15 mm left hilar lymph node. These have increased somewhat in size compared with the prior CAT scan done in late December 2015. There were scattered ground-glass opacities. She has an infiltrate or atelectasis in the lingular division of the left upper lobe. This could be an area where lymph nodes are compressing the entrance but could not exclude an endobronchial obstruction as well. The CAT scan done in December had shown a very small nodule in the periphery of the lingula, measuring 7 mm. This is more difficult to assess on the current CAT scan. CBC on admission showed a white count of 10.27. That minna to up to 19.56 yesterday and today was 16.89. She has been on steroids which likely accounts for the increase. Hemoglobin today is 14.1. Platelets are 305,000. Electrolytes show sodium 139, potassium 3.4, chloride 96, bicarbonate 36. BUN was 22 with a creatinine of 0.73. Serial blood sugars have been elevated. This morning it was 194. Calcium was 8.6. Flu test was negative. IMPRESSION: 1. Mediastinal and hilar adenopathy bilaterally. 2. Lingular infiltrate -- questionable pneumonia versus atelectasis. 3. Restrictive lung disease -- could be in part related to the patient's body habitus. Her weight is 108.5 kilograms with a body mass index of 39.8. 4. Possible chronic obstructive pulmonary disease. 5. Congestive heart failure with diastolic dysfunction. COMMENTS: The patient has symptoms as noted above. She has an abnormal CAT scan. The lingula suggests atelectasis or pneumonia. For now, I would treat with antibiotics for 7-10 days. The patient will need followup. She may need a bronchoscopy with EBUS if this does not all resolve symptomatically and radiographically. Obviously, the possibility of an underlying bronchogenic carcinoma cannot be excluded. Lymphoma would be in the differential diagnosis of mediastinal and hilar adenopathy, although her symptoms do not seem to be as likely to relate to that. Also, her labs do not give strong suggestion for that. I would start to taper the steroids and change to oral. She has been on nebulizer treatments. She feels they are helping some. The options would be to have a nebulizer at home versus go home with Xopenex inhaler and perhaps an inhaler such as Symbicort that would give a long acting sympathomimetic as well as an inhaled steroid. The case was discussed with Dr. Ceballos. I discussed this with the patient and her sister who was also present during this examination. We will arrange for her to follow up with me in about 2 weeks. Thank you for asking me to assist in her care.
--- NOTE | 2016-02-08 14:49 | Progress Note ---
Subjective Subjective Date of Service: Feb 08, 2016. Pt evaluation today including: conversation w/ patient, physical exam, chart review, review of studies, review of inpatient medication list Notes: edema improved, cough persists Problem List Medical Problems: (1) CHF exacerbation Status: Acute (2) Congestive heart failure Status: Acute (3) Frequent PVCs Status: Acute Review of Systems Constitutional: No fever ENT: No hearing loss Respiratory: + cough Cardiac: No chest pain Abdomen: No pain Female : No dysuria Neurologic: No memory loss Psychiatric: No depression symptoms Heme: No abnormal bleeding/bruising Endo: No fatigue Physical Exam Vital Signs Vital Signs Past 24 Hours: Date Time Temp Pulse Resp B/P Pulse Ox O2 Delivery O2 Flow Rate FiO2 02/08/16 12:00 Nasal Cannula 2.0 02/08/16 11:55 36.8 106 22 133/80 96 Nasal Cannula 2.0 02/08/16 08:47 36.9 96 18 104/73 96 02/08/16 08:00 Nasal Cannula 2.0 02/08/16 07:17 74 18 93 Nasal Cannula 2.0 02/08/16 04:00 Nasal Cannula 2.0 Humidified Oxygen 02/08/16 03:51 37.0 88 18 111/58 97 2.0 02/08/16 00:05 Nasal Cannula 2.0 Humidified Oxygen 02/07/16 23:52 37.1 88 20 107/67 95 Nasal Cannula 2.0 02/07/16 23:45 86 18 95 Nasal Cannula 2.0 02/07/16 20:02 36.5 83 20 119/104 96 Nasal Cannula 2.0 Humidified Oxygen 02/07/16 20:00 Nasal Cannula 2.0 Humidified Oxygen 02/07/16 16:00 Nasal Cannula 2.0 Humidified Oxygen 02/07/16 15:54 36.6 86 22 117/72 96 Nasal Cannula 2.0 Humidified Oxygen 02/07/16 15:28 82 18 97 Nasal Cannula 2.0 Physical Exam: General Appearance: WD/WN, no apparent distress Eyes: bilateral eyes normal inspection ENT: hearing grossly normal, pharynx normal Neck: supple, no JVD Respiratory/Chest: lungs clear, no respiratory distress Cardiovascular: no edema, no murmur Abdomen: non tender, soft Extremities: + pedal edema Neurologic/Psychiatric: alert Skin: normal color, warm/dry Medications Medications: Current Inpatient Medications Medications (Trade) Dose Ordered Sig/Omkar Route Start Time Stop Time Status Last Admin Dose Admin Acetaminophen (Tylenol Tab) 650 mg Q4H PRN PO 02/04/16 10:00 03/05/16 09:59 02/07/16 08:35 650 MG Al Hydrox/Mg Hydrox/Simethicone (Maalox Max Susp) 15 ml Q4H PRN PO 02/04/16 10:00 03/05/16 09:59 Magnesium Hydroxide (Milk Of Magnesia Susp) 30 ml Q12H PRN PO 02/04/16 10:00 03/05/16 09:59 Ondansetron HCl (Zofran Inj) 4 mg Q6H PRN IV 02/04/16 10:00 03/05/16 09:59 Nitroglycerin (Nitrostat Tab) 0.4 mg UD PRN SL 02/04/16 10:00 03/05/16 09:59 Polyethylene (Miralax Powder Packet) 17 gm DAILY PRN PO 02/04/16 10:00 03/05/16 09:59 Metformin HCl (Glucophage Tab) 1,000 mg BIDM PO 02/06/16 16:45 03/07/16 16:44 Future Hold Paroxetine HCl (pAXil TAB) 20 mg QAM PO 02/05/16 09:00 03/06/16 08:59 02/08/16 08:58 20 MG Prednisone (PredniSONE TAB) 5 mg DAILY PO 02/05/16 09:00 03/06/16 08:59 Future Hold 02/05/16 08:37 5 MG Tramadol HCl (Ultram Tab) 50 mg TID PRN PO 02/04/16 10:00 03/05/16 09:59 Pantoprazole Sodium (Protonix Tab) 40 mg QAM PO 02/05/16 09:00 03/06/16 08:59 02/08/16 08:59 40 MG Lorazepam (Ativan Inj) 1 mg Q6 PRN IV 02/04/16 10:00 03/05/16 09:59 Insulin Aspart (novoLOG ASPART) SLIDING SCALE G... ACHS SC 02/04/16 11:00 02/08/16 12:38 3 UNITS Miscellaneous (Iv Fluids Completed) 1 ea PRN PRN N/A 02/04/16 11:15 12/30/17 11:14 Glucose (Glucose 40% Gel) 15-30 GRAMS 15 GRAMS... UD PRN PO 02/04/16 12:30 03/05/16 12:29 Glucose (Glucose Chew Tab) 4-8 Tablets 4 Tabl... UD PRN PO 02/04/16 12:30 03/05/16 12:29 Dextrose (Dextrose 50% 50ML Syringe) 25-50ML OF 50% DW IV FOR... UD PRN IV 02/04/16 12:30 03/05/16 12:29 Glucagon (Glucagon Inj) 1 mg UD PRN SQ 02/04/16 12:30 03/05/16 12:29 Lorazepam (Ativan Tab) 0.5 mg Q6H PRN PO 02/04/16 12:45 03/05/16 12:44 02/07/16 21:32 0.5 MG Diltiazem HCl (Cardizem Cd Cap) 240 mg QAM PO 02/05/16 09:00 03/06/16 08:59 02/08/16 09:00 240 MG Levalbuterol (Xopenex 1.25MG/ 3ML Neb) 1.25 mg Q8R INH 02/06/16 10:17 03/07/16 10:16 02/08/16 07:15 1.25 MG Levalbuterol (Xopenex 1.25MG/ 3ML Neb) 1.25 mg Q2R PRN INH 02/06/16 10:30 03/07/16 10:29 Metolazone (Zaroxolyn Tab) 5 mg QAM PO 02/07/16 09:00 03/08/16 08:59 02/08/16 09:08 5 MG Magnesium Oxide (Mag-Ox Tab) 400 mg QAM PO 02/07/16 14:15 03/08/16 14:14 02/08/16 08:59 400 MG Insulin Human NPH (novoLIN-N NPH) 5 units DAILY SC 02/09/16 09:00 03/10/16 08:59 Prednisone (PredniSONE TAB) 50 mg DAILY PO 02/08/16 09:30 03/09/16 09:29 02/08/16 09:42 50 MG Furosemide (Lasix tab) 40 mg QAM PO 02/08/16 09:30 03/09/16 09:29 02/08/16 09:42 40 MG Amoxicillin/ Clavulanate Potassium (Augmentin Tab) 875 mg BIDM PO 02/08/16 09:45 02/15/16 09:44 02/08/16 09:42 875 MG Laboratory Data Labs: Last 24 Hours Test 02/07/16 15:52 02/07/16 20:04 02/08/16 05:44 02/08/16 06:38 Bedside Glucose 179 mg/dl 232 mg/dl 194 mg/dl White Blood Count 16.89 K/uL Red Blood Count 4.74 M/uL Hemoglobin 14.1 g/dL Hematocrit 43.7 % Mean Corpuscular Volume 92.2 fL Mean Corpuscular Hemoglobin 29.7 pg Mean Corpuscular Hemoglobin Concent 32.3 g/dl RDW Standard Deviation 49.9 fL RDW Coefficient of Variation 14.8 % Platelet Count 305 K/uL Mean Platelet Volume 10.6 fL Sodium Level 139 mmol/L Potassium Level 3.4 mmol/L Chloride Level 96 mmol/L Carbon Dioxide Level 36 mmol/L Anion Gap 7.0 mmol/L Blood Urea Nitrogen 22 mg/dl Creatinine 0.73 mg/dl Est Creatinine Clear Calc Drug Dose 99.1 ml/min Estimated GFR () 103.0 Estimated GFR (Non- 88.9 BUN/Creatinine Ratio 30.5 Random Glucose 201 mg/dl Calcium Level 8.6 mg/dl Assessment and Plan 60 y/o female, with PMHx of DM2, diastolic dysfunction, PVC, anxiety, and GERD, who presented to the ED because of worsening SOB x2 days. Acute of chronic diastolic dysfunction heart failure; cont tele start po lasix 40 mg daily stop HCTZ 25 mg PO daily PRN check intake and output patient is making good urine CXR: Congestive failure with interstitial edema similar to the preceding study COPD exacerbation due to Bblockers and smoking stop bblockers stop IV SoluMedrol, q12h (02/04) start po prednisone taper consulted pulm recommended bronch when she is discharged to evaluate enlarged lymph nodes cont Xopenex and Ipratropium 2 liters o2 with ambulation start po augmentin bid, cant rule out pneumonia Frequent PVCs stop Metoprolol Succinate to 50 mg PO daily due to COPD exacerbation case discussed with Dr Barkley, continue cardizem po 240 mg instead will follow with Dr. 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 hopefully in the next few days
[2016-02-08] MEDS: LORAZEPAM 0.5 MG TAB PO PRN (20:13)
[2016-02-09 04:34] VITALS: BP 129/68; PULSE 86; TEMP 36.5; O2SAT 97
[2016-02-09] MEDS: LEVALBUTEROL 1.25MG/3ML NEB INH SCH (07:10)
[2016-02-09 07:11] VITALS: PULSE 81; O2SAT 98
[2016-02-09 07:28] VITALS: BP 147/77; PULSE 99; TEMP 36.8; O2SAT 94
[2016-02-09] MEDS: METOLAZONE 5 MG TAB PO SCH (07:49)
[2016-02-09] MEDS: AMOXICILLIN/CLAVULANATE TAB 875 MG TAB PO SCH (07:49)
[2016-02-09] MEDS: PAROXETINE 20 MG TAB PO SCH (07:49)
[2016-02-09] MEDS: PANTOprazole SOD 40 MG TAB PO SCH (07:49)
[2016-02-09] MEDS: DILTIAZEM HCL 240 MG CAPCR PO SCH (07:49)
[2016-02-09] MEDS: MAGNESIUM OXIDE 400 MG TAB PO SCH (07:50)
[2016-02-09] MEDS: INSULIN ASPART 100 UNITS/ML 3 ML PEN SC SCH ×2 (07:54→11:00)
[2016-02-09] MEDS ORDERED: INSULIN HUMAN NPH SC SCH (09:00)
[2016-02-09 09:16] LABS: BASO % 0.1 %; BASO ABS # 0.02 K/uL (0-0.2); COMPLETE YES; EOS % 0.2 %; HEMATOCRIT 45.2 % (37-47); IG% 0.8 %; LYMPH % 17.9 %; LYMPH ABS # 2.99 K/uL (1.2-3.4); MEAN CELL VOLUME 92.1 fL (80-100); MEAN CORPUSCULAR HEMOGLOBIN 29.9 pg (25-34); MEAN CORPUSCULAR HGB CONC 32.5 g/dl (32-36); MONO % 6.7 %; NEUT % 74.3 %; PLATELET COUNT 291 K/uL (130-400); RED BLOOD COUNT 4.91 M/uL (4.2-5.4); WHITE BLOOD COUNT 16.67 K/uL (4.8-10.8)
[2016-02-09] MEDS ORDERED: DILT-204 PO (09:35)
[2016-02-09] MEDS ORDERED: LSX40 PO (09:35)
[2016-02-09] MEDS ORDERED: MGNO400 PO (09:35)
[2016-02-09] MEDS ORDERED: GFNSR600 PO (09:35)
[2016-02-09] MEDS ORDERED: AMOX1TAB43 PO (09:35)
[2016-02-09] MEDS ORDERED: PRED10TA PO (09:35)
--- NOTE | 2016-02-09 09:39 | Discharge Instructions ---
Discharge Instructions Admission Reason for Admission: Sob (Shortness Of Breath) Discharge Discharge Diagnosis / Problem: CHF, pneumonia Discharge Goals Goal(s): Increase independence, Improve disease control, Diagnostic testing, Therapeutic intervention Activity Recommendations Activity Limitations: resume your previous activity . Instructions / Follow-Up Instructions / Follow-Up . . stop HCTZ and Metoprolol start cardizem daily start prednisone 10 mg 4 tabs for 4 days, then 5 mg daily follow up Dr Martinez (bronchoscopy) and Dr Barkley 2 weeks finish antibiotics . . Current Hospital Diet Patient's current hospital diet: AHA Diet (Heart Healthy), Low Sodium Diet (2gm Na), Diabetes Type 2 Diet Discharge Diet Recommended Diet: Diabetes Type 2 Diet Pending Studies Studies pending at discharge: no Laboratory Results Hemoglobin A1c Test 02/05/16 08:00 Range/Units Estimated Average Glucose 151 mg/dl Hemoglobin A1c 6.9 H 4.5-5.6 % Medical Emergencies . Who to Call and When: Medical Emergencies: If at any time you feel your situation is an emergency, please call 911 immediately. . Non-Emergent Contact Non-Emergency issues call your: Primary Care Provider, Seismic Interpreter, Charge Out Clerk Call Non-Emergent contact if: you have a fever . Past History Medical & Surgical History: (1) Pneumonia (2) CHF exacerbation . "Provider Documentation" section prepared by Bright Ceballos. VTE Core Measure Inpt VTE Proph given/why not?: Chantale Gee, CHRIS's
--- NOTE | 2016-02-09 09:43 | Discharge Summary ---
Discharge Summary Admission Date: Feb 04, 2016 at 10:05 Discharge Date: Feb 09, 2016 Discharge Disposition: Home Principal Diagnosis: CHF, PNA Immunizations: History of Tetanus Vaccine?: APPROX 10 YRS AGO History of Pneumococcal: No History of Hepatitis B Vaccine: YES UNKNOWN DATE Consultations: pulmonology Medication Reconciliation New Medications: Prednisone Tab (Prednisone) 10 Mg Tab 10 MG PO DAILY, #16 TAB take 10 mg 4 tab daily for 4 days, then start 5 mg daily Amoxicillin & Pot Clavulanate (Amoxicillin/Clavulanate P) 1 Tab Tab 875 MG PO BIDM, #10 TAB Diltiazem HCl (Diltiazem Cd) 240 Mg Capcr 240 MG PO QAM, #90 TABS 3 Refills Furosemide (Furosemide) 40 Mg Tab 40 MG PO QAM, #90 TAB 3 Refills Guaifenesin Ext Rel (Mucinex Ext Rel) 600 Mg Tabcr 1200 MG PO Q12, #20 TAB Magnesium Oxide (Magnesium-Oxide) 400 Mg Tab 400 MG PO QAM, #30 TAB 3 Refills Continued Medications: Acetaminophen (Tylenol) 500 Mg Tab 1000 MG PO Q6 PRN for Pain, TAB Cholecalciferol (Vitamin D) 1,000 Unit Tab 1000 UNITS PO DAILY Clonazepam (Clonazepam) 0.5 Mg Tab 0.5 MG PO DAILY PRN for Anxiety Metformin Hcl (Glucophage) 1,000 Mg Tab 1000 MG PO BID, #60 Multivitamin (Multivitamin) Tab 1 TAB PO DAILY, TAB Paroxetine (Paroxetine HCl) 20 Mg Tab 20 MG PO QAM, #30 Prednisone (Prednisone) 5 Mg Tab 5 MG PO DAILY, 0 Refills Ranitidine (Zantac) 300 Mg Tab 300 MG PO DAILY, 0 Refills Tramadol (Ultram) 50 Mg Tab 1 TAB PO TID PRN for prn for 30 Days, #90 TAB Discontinued Medications: Hydrochlorothiazide (Hydrochlorothiazide) 25 Mg Tab 25 MG PO DAILY, #30 Metoprolol Succinate (Metoprolol Succinate ER) 25 Mg Tabcr 25 MG PO DAILY, #30 TABS Referrals At Discharge Follow up Referrals: Fastener Technologist Referral - Within 2 Weeks with Jim Barkley M.D. Physician Referral - Within 1 Week with Armand Kearney M.D. Plumber Apprentice Referral - Within 2 Weeks with Philip Martinez DO Discharge Exam Review of Systems: Constitutional: No chills ENT: No unusual epistaxis Respiratory: No sputum Cardiovascular: No orthopnea Genitourinary - Female: No dysuria, No urinary frequency Neurologic: No memory loss, No weakness Endocrine: No fatigue Integumentary: No rash Physical Exam: General Appearance: WD/WN, no apparent distress Eyes: normal inspection, EOMI ENT: hearing grossly normal, pharynx normal Neck: supple, no JVD Respiratory/Chest: chest non-tender, normal breath sounds Cardiovascular: no edema, no JVD Abdomen / GI: non tender, soft Extremities: normal inspection, normal capillary refill Neurologic/Psychiatric: alert, normal mood/affect Skin: normal color, warm/dry Hospital Course 60 y/o female, with PMHx of DM2, diastolic dysfunction, PVC, anxiety, and GERD, who presented to the ED because of worsening SOB x2 days. Acute of chronic diastolic dysfunction heart failure; cont tele start po lasix 40 mg daily stop HCTZ 25 mg PO daily PRN CXR: Congestive failure with interstitial edema similar to the preceding study COPD exacerbation due to Bblockers and smoking stop bblockers stopped IV SoluMedrol, q12h (02/04) start po prednisone taper consulted pulm recommended bronch when she is discharged to evaluate enlarged lymph nodes cont Xopenex and Ipratropium 2 liters o2 with ambulation start po augmentin bid, cant rule out pneumonia Frequent PVCs stop Metoprolol Succinate to 50 mg PO daily due to COPD exacerbation case discussed with Dr Barkley, continue cardizem po 240 mg instead will follow with Dr. 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 Discharge Instructions Please refer to the electronic Patient Visit Report (Discharge Instructions) for additional information. Additional Copies To Philip Martinez DO; Jim Barkley M.D.; Armand Kearney M.D.
[2016-02-09 09:48] VITALS: BP 147/77; PULSE 99; TEMP 36.8; O2SAT 94
[2016-02-09 09:48] LABS: CALCIUM 9.3 mg/dl (8.5-10.1); CREATININE 0.8 mg/dl (0.60-1.20); POTASSIUM 3.1 mmol/L (3.5-5.1)
[2016-02-09] MEDS: FUROSEMIDE 40 MG TAB PO SCH (09:51)
[2016-02-09] MEDS ORDERED: POTASSIUM CHLORIDE 10 MEQ TABCR PO STA (09:55)
[2016-02-09] MEDS ORDERED: POTA10TA PO (09:56)
[2016-02-09] MEDS ORDERED: GUAIFENESIN 600 MG TABCR PO ONE (10:00)
--- NOTE | 2016-02-09 10:56 | PROGRESS NOTE ---
DATE: 02/09/2016 DATE: 02/09/2016. PROBLEM LIST: Includes: 1. Mediastinal and hilar adenopathy bilaterally. 2. Lingular infiltrates with question of pneumonia versus atelectasis. 3. Restrictive lung disease. 4. Possible chronic obstructive pulmonary disease. 5. Congestive heart failure with diastolic dysfunction. SUBJECTIVE: The patient reports that she is feeling much better today. She is being discharged to home today. She states that she is coughing and still has a little bit of mucus coming up. She feels like the mucus is getting stuck in her chest still. She feels that the nebulizer has been very helpful for her. She is questioning about having one at home. I think this is a good idea. Otherwise she denies any problems. No painful respirations at this time. No pleuritic chest pain, no abdominal pain, no nausea or vomiting, no indigestion or heartburn. OBJECTIVE: GENERAL: The patient is a 60-year-old female in no acute distress. She is alert and oriented x3. Mood is good. Affect is good. VITAL SIGNS: Temp 36.8, pulse 99, respirations 20, blood pressure is 147/77, pulse ox 94% on room air. HEAD, EYES, EARS, NOSE, AND THROAT: Normocephalic, atraumatic. Pupils equal, round and reactive to light and accommodation. Extraocular movements are intact. [place] moist gingival and buccal mucosa. NECK: Supple. No mass. No adenopathy. No bruit. CHEST: She is relatively clear today. She has a few expiratory wheeze but this clears with cough. No rale or rhonchi noted. CARDIOVASCULAR: Regular rate and rhythm. There are no murmurs, gallops or rubs noted. ABDOMEN: Bowel sounds are present. Abdomen soft, nontender. No guarding, rigidity or organomegaly. EXTREMITIES: No erythema or edema. NEUROLOGIC: Cranial nerves II through XII are intact. No focal deficit. LABORATORY DATA: Shows white count 16,000, H\T\H 14.7 and 45.2, platelet count 291,000. IMPRESSION: This is a 60-year-old female with recent pneumonia and is doing much better. At this point, I agree with extending the antibiotic after discharge, do a slow prednisone taper as per Dr. Martinez's recommendation. I do think the patient would benefit from nebulizers as an outpatient. At this point I will provide patient with a prescription for this as well as a prescription for Xopenex to use in the nebulizer up to 4 times daily, but I did recommend that she do at least 2-3 times a day regularly until she sees Dr. Martinez as an outpatient. She is to see Dr. Martinez in followup in approximately 2 weeks.
[2016-02-09] MEDS ORDERED: GUAIFENESIN 600 MG TABCR PO SCH (21:00)
[2016-06-05] MEDS ORDERED: PRED-301 PO (10:52)
[2016-06-05] MEDS ORDERED: POTA-65 PO (10:52)
[2016-06-05] MEDS ORDERED: VITA1CAP11 PO (10:52)
[2016-06-05] MEDS ORDERED: DILT300C35 PO (10:52)
[2016-06-05] MEDS ORDERED: FRS/40 PO (10:52)
[2016-06-12] MEDS ORDERED: HYDR-5688 PO (08:26)
[2016-06-21] MEDS ORDERED: AMOX875T PO (07:33)
[2016-06-21] MEDS ORDERED: HYDR-5688 PO (07:33)
[2016-06-21] MEDS ORDERED: ATV/1 PO (09:26)
[2016-06-21] MEDS ORDERED: PXL20 PO (12:53)
[2016-06-21] MEDS ORDERED: FLUC100T4 PO (16:48)
[2016-07-05] MEDS ORDERED: LORA-741 PO (09:59)
[2016-07-05] MEDS ORDERED: MAGN400T6 PO (09:59)
[2016-07-05] MEDS ORDERED: ANAS1TAB19 PO (09:59)
[2016-07-12] MEDS ORDERED: METF-384 PO (15:27)
[2016-07-12] MEDS ORDERED: FRS/40 PO (15:27)
[2016-07-12] MEDS ORDERED: CRG625 PO (15:27)
[2016-07-12] MEDS ORDERED: PARO30TA3 PO (15:27)
[2016-07-12] MEDS ORDERED: CZR25 PO (15:27)
[2016-08-14] MEDS ORDERED: PARO30TA3 PO (10:41)
[2016-08-14] MEDS ORDERED: CZR25 PO (10:41)
[2016-08-14] MEDS ORDERED: FRS/40 PO (10:41)
[2016-08-14] MEDS ORDERED: METF1TAB53 PO (10:41)
[2016-08-14] MEDS ORDERED: CRG625 PO (10:41)
[2016-08-15] MEDS ORDERED: CARV25TA PO (17:01)
[2016-09-18] MEDS ORDERED: PHEN-876 PO (13:09)
[2016-09-18] MEDS ORDERED: NITR1CAP32 PO (13:09)
[2016-10-25] MEDS ORDERED: LOSA1TAB PO (15:15)
[2017-02-13] MEDS ORDERED: DOCU-94 PO (10:11)
== END 2016-02-09 11:44 | disposition home health service (06) | DRG 291 ==
LOC: ENRESERVTM → ENRESERVDT → C.EDB 07:41 → EEVIPCON 07:41 → C.2E 10:05 → EDBEDREQTM 11:15
PROVIDERS: ADMIT Hospitalist; ATTEND Hospitalist
DX: I50.33 Acute on chronic diastolic (congestive) heart failure (principal); J18.9 Pneumonia, unspecified organism; J44.1 Chronic obstructive pulmonary disease with (acute) exacerbation; K21.9 Gastro-esophageal reflux disease without esophagitis; F41.9 Anxiety disorder, unspecified; I49.3 Ventricular premature depolarization; Z87.891 Personal history of nicotine dependence; E11.9 Type 2 diabetes mellitus without complications; L50.1 Idiopathic urticaria; T44.7X5A Adverse effect of beta-adrenoreceptor antagonists, initial encounter; R59.0 Localized enlarged lymph nodes; Z85.3 Personal history of malignant neoplasm of breast; Z79.84 Long term (current) use of oral hypoglycemic drugs; Z79.899 Other long term (current) drug therapy; Z79.52 Long term (current) use of systemic steroids; Z79.891 Long term (current) use of opiate analgesic

== ENCOUNTER → 2016-02-16 | Outpatient (CLI) | payer OTHER ==
[~2016-02-16] VITALS: Ht 165.1 cm; Wt 100.0 kg
[~2016-02-16] MED LIST changes: +AMOX1TAB43 PO; +AMOX875T PO; +ANAS1TAB19 PO; +ATV/1 PO; +CARV25TA PO; +CRDCD240 PO; +CRG625 PO; +CZR25 PO; +DILT300C35 PO; -DXY100 PO; +FLUC100T4 PO; +FRS/40 PO; +GFNSR600 PO; +HYDR-5688 PO; +KLN5X PO; +LORA-741 PO; +LOSA1TAB PO; +LSX40 PO; +MAGN400T6 PO; +METF-384 PO; +METF1TAB53 PO; +MGNO400 PO; +NITR1CAP32 PO; +PARO30TA3 PO; +PHEN-876 PO; +POTA-65 PO; +POTA10TA PO; +PRED10TA PO; -TPRSR/25 PO; +VITA1CAP11 PO
[2016-02-16 10:40] VITALS: BP 129/63; PULSE 62; Ht 165.1 cm; Wt 100.0 kg
== END | disposition home or self-care (01) ==
LOC: C.NEUR 10:12
PROVIDERS: ATTEND Internal Medicine Pulmonary Disease
DX: J18.9 Pneumonia, unspecified organism (principal); R59.0 Localized enlarged lymph nodes; R91.1 Solitary pulmonary nodule; J98.4 Other disorders of lung; R63.4 Abnormal weight loss

== ENCOUNTER → 2016-03-29 | Outpatient (CLI) | payer OTHER ==
[2016-03-29 10:55] LABS: BLOOD UREA NITROGEN 14 mg/dl (7-18); CALCIUM 8.9 mg/dl (8.5-10.1); CARBON DIOXIDE 21 mmol/L (21-32); CHLORIDE 102 mmol/L (98-107); CREATININE 0.81 mg/dl (0.60-1.20); GLUCOSE 179 mg/dl (70-99); MAGNESIUM 1.8 mg/dl (1.8-2.4); POTASSIUM 4.1 mmol/L (3.5-5.1); SODIUM 139 mmol/L (136-145)
== END | disposition home or self-care (01) ==
LOC: C.LAB 09:31
PROVIDERS: ATTEND Internal Medicine Cardiovascular Disease
DX: E83.42 Hypomagnesemia (principal); I49.9 Cardiac arrhythmia, unspecified

== ENCOUNTER → 2016-05-01 | Outpatient (CLI) | payer OTHER ==
[~2016-05-01] MED LIST changes: +OPTIRAY 320 IV PRN
--- NOTE | 2016-05-01 07:26 | DIAGNOSTIC IMAGING REPORT ---
CT OF THE CHEST WITH IV CONTRAST CLINICAL HISTORY: R59.0 Mediastinal lymphadenopathy PULMONARY NODULES COMPARISON STUDY: 02/04/2016 TECHNIQUE: Following the IV administration of 92 mL of Optiray-320, CT of the thorax was performed from the thoracic inlet to the lung bases. Images are reviewed in the axial, sagittal, and coronal planes. IV contrast was administered without complication. CT DOSE: 557.42 mGy.cm FINDINGS: Thyroid: Imaged portions of the thyroid gland are normal in appearance. Thoracic aorta: The thoracic aorta is normal in course and caliber, noting standard 3-vessel arch anatomy. No aneurysm or dissection is seen. Pulmonary vasculature: The pulmonary trunk is normal in caliber. There are no central filling defects identified to suggest pulmonary embolus. Note that this examination was not protocoled for the evaluation of pulmonary emboli. HEART: The heart is mildly enlarged Lungs and pleural spaces: There are no pleural effusions. There is septal thickening/edema. There is a 7 mm pleural-based lingular pulmonary nodule, smaller than on the prior study. Mediastinum: There are persistent enlarged mediastinal lymph nodes. A targeted right paratracheal lymph node measures 18 mm. This previously measured 20 mm. Jie: There is persistent mild hilar lymphadenopathy. Axilla: There are surgical clips in the left axilla. There is no evidence of pathologic axillary lymphadenopathy. Upper abdomen: There is hepatic steatosis. There is a persistent left anterior medial chest wall mass measuring 27 mm in AP diameter. Skeletal structures: There is a persistent sclerotic lesion involving the left scapular spine. IMPRESSION: 1. Persistent interlobular septal thickening/edema 2. Persistent mediastinal and hilar lymphadenopathy 3. Persistent left anterior chest wall mass 4. Area of sclerosis involving the left scapular spine 5. Interval decrease in the size of the pleural-based lingular opacity, currently measuring 7 mm Electronically signed by: Kirill Mujica M.D. 05/01/2016 7:25 AM Dictated Date/Time: 05/01/2016 7:02 AM
== END | disposition home or self-care (01) ==
LOC: C.CTS 06:33
PROVIDERS: ATTEND Internal Medicine Pulmonary Disease
DX: R59.0 Localized enlarged lymph nodes (principal); R22.2 Localized swelling, mass and lump, trunk; R91.8 Other nonspecific abnormal finding of lung field

== ENCOUNTER → 2016-05-17 | Outpatient (CLI) | payer OTHER ==
[~2016-05-17] MED LIST changes: -OPTIRAY 320 IV PRN
--- NOTE | 2016-05-19 16:29 | DIAGNOSTIC IMAGING REPORT ---
PET/CT HISTORY: Chest wall mass. Breast cancer. PULMONARY NODULE TECHNIQUE: PET/CT was performed from the base of the skull through the pelvis following the intravenous administration of 13.3 mCi of F18-FDG. Non-contrast CT imaging was performed over the same range without breath-hold for attenuation correction of PET images and anatomic correlation, but not for primary interpretation as it is not of standard diagnostic quality. CT DOSE: COMPARISON: Chest CT 05/01/2016. Chest CT 02/04/2016. FINDINGS: HEAD AND NECK: There is no FDG-avid disease or significant lymphadenopathy in the imaged portions of the head and the neck. CHEST: There is a 2.9 x 2.1 cm FDG avid mass within the left upper presternal soft tissues. This abuts the skin surface and invades into the medial aspect of the left pectoralis major muscle. This demonstrates an SUV max of 6. Mediastinal and bilateral hilar lymphadenopathy is again noted. These demonstrate mild FDG uptake with an SUV max of 2.5. These lymph nodes have slightly increased in size from the 05/01/2016 examination but have slightly decreased in size from the 02/04/2016 examination. Dominant right paratracheal lymph node measures 14 mm. Diffuse interlobular septal thickening with mild upper lobe perihilar groundglass opacities also demonstrate a waxing and waning appearance. Therefore, this is consistent with mild pulmonary edema. The heart is mildly enlarged. Stable 7 mm lingular nodule on image 88. This does not demonstrate abnormal FDG uptake. ABDOMEN/PELVIS: Below the diaphragm, tracer is distributed physiologically in the gastrointestinal and genitourinary tracts. No hepatic or splenic masses. A few tiny stones within the gallbladder. There is mild thickening and pericolonic fat stranding at the mid sigmoid colon. There are multiple colonic diverticula. Findings are consistent with acute diverticulitis. Small focus of extraluminal gas along the right side of the sigmoid colon best seen on image 197. This measures 1.6 cm. This is consistent with focal microperforation. No abscess identified at this time. There is a single mildly enlarged pericolonic lymph node on image 197 measuring 9 mm. This is not demonstrate abnormal FDG uptake. The inflammatory change seen on the right side the sigmoid colon extends inferiorly and abuts the bladder dome. However, there is no definite fistula identified at this time. There is no gas within the bladder. The tip of the appendix is slightly obscured by the inflammatory change. However, the remaining portions of the appendix are within normal limits. Prior hysterectomy. MUSCULOSKELETAL: No FDG avid or destructive bone lesions. Old, healed right-sided rib fractures. Stable focal area of sclerosis within the right lateral sixth rib likely represents a healing fracture. There is also stable focal area of sclerosis within the base of the left acromion which does not demonstrate abnormal FDG uptake. Therefore, this favors a bone island. IMPRESSION: 1. A 2.9 x 2.7 cm FDG avid mass within the left upper presternal soft tissues which invades into the medial aspect of the left pectoralis major muscle. This is highly suspicious for metastatic disease. Ultrasound-guided fine-needle aspiration is recommended for further evaluation. 2. Waxing and waning appearance to the mediastinal and hilar lymphadenopathy which demonstrates mild FDG uptake. Therefore, this favors lymphadenopathy due to long-standing pulmonary edema. However, follow up is recommended to ensure stability. 3. Intact and waning interstitial thickening and groundglass opacities consistent with mild pulmonary edema. 4. Mild cardiomegaly. 5. Stable 7 mm peripheral nodule within the lingula. This does not demonstrate abnormal FDG uptake but is likely below the threshold for PET imaging. 6. Acute sigmoid diverticulitis with a small focus of microperforation. No abscess at this time. The pericolonic inflammatory change along the right side of the sigmoid colon abuts the bladder dome. There is no fistula identified at this time. However, recommend 3 month abdomen and pelvis CT follow up to ensure resolution of the acute diverticula and exclude the less likely possibility of a developing colovesical fistula. In addition, follow-up of the acute diverticulitis is recommended to exclude the less likely possibility of an underlying colonic lesion. 7. Findings were discussed with Dr. Martinez at 2:00 PM on 05/17/2016. Electronically signed by: Sebastien Lovett M.D. 05/19/2016 4:27 PM Dictated Date/Time: 05/17/2016 1:28 PM
== END | disposition home or self-care (01) ==
LOC: C.PET 09:07
PROVIDERS: ATTEND Internal Medicine Pulmonary Disease
DX: R91.1 Solitary pulmonary nodule (principal); R59.0 Localized enlarged lymph nodes

== ENCOUNTER → 2016-06-12 | Day surgery (SDC) | payer OTHER ==
[2016-06-05 10:53] VITALS: BMI 37.0
--- NOTE | 2016-06-05 11:22 | PAT Medication Instructions ---
Service Date June 05, 2016. Current Home Medication List Acetaminophen (Tylenol), 1,000 MG PO Q6 PRN for Pain Cholecalciferol (Vitamin D), 1,000 UNITS PO QAM Diltiazem Hcl Extended Release (Diltiazem Hcl), 300 MG PO QAM Furosemide (Lasix), 40 MG PO QAM Metformin Hcl (Glucophage), 1,000 MG PO BID Multivitamin (Multivitamin), 1 TAB PO QAM Paroxetine (Paroxetine HCl), 20 MG PO QAM Potassium Chloride (Potassium Chloride ER), 20 MEQ PO QAM Prednisone (Prednisone), 5 MG PO QAM Vitamin A ([id number]), 1 TAB PO UD Medication Instructions For Your Scheduled Surgery Vitamin A ([id number]), 1 TAB PO UD (take as directed by Dr. Levine) - Hold the following medications 48 hours prior to surgery: Metformin Hcl (Glucophage), 1,000 MG PO BID - Hold the following medications the morning of surgery: Potassium Chloride (Potassium Chloride ER), 20 MEQ PO QAM Multivitamin (Multivitamin), 1 TAB PO QAM Furosemide (Lasix), 40 MG PO QAM Cholecalciferol (Vitamin D), 1,000 UNITS PO QAM - Take the following medications the morning of surgery with a sip of water: Prednisone (Prednisone), 5 MG PO QAM Paroxetine (Paroxetine HCl), 20 MG PO QAM Diltiazem Hcl Extended Release (Diltiazem Hcl), 300 MG PO QAM Acetaminophen (Tylenol), 1,000 MG PO Q6 PRN for Pain (if needed) - Take the following medications as scheduled the night before surgery: Acetaminophen (Tylenol), 1,000 MG PO Q6 PRN for Pain (if needed) If you have any questions please call us at [phone] or [phone] ( [place]) or [phone]
[2016-06-05 12:15] LABS: BASO % 0.3 %; BASO ABS # 0.05 K/uL (0-0.2); COMPLETE YES; EOS % 0.7 %; HEMATOCRIT 45.6 % (37-47); IG% 0.6 %; LYMPH % 19.4 %; MEAN CELL VOLUME 94.6 fL (80-100); MEAN CORPUSCULAR HEMOGLOBIN 30.9 pg (25-34); MEAN CORPUSCULAR HGB CONC 32.7 g/dl (32-36); MEAN PLATELET VOLUME 10.4 fL (7.4-10.4); MONO % 5.9 %; NEUT % 73.1 %; PLATELET COUNT 383 K/uL (130-400); RED BLOOD COUNT 4.82 M/uL (4.2-5.4); WHITE BLOOD COUNT 15.47 K/uL (4.8-10.8)
[2016-06-05 12:31] LABS: BUN/CREATININE RATIO 15.6 (10-20); CALCIUM 9.4 mg/dl (8.5-10.1); CREATININE 0.84 mg/dl (0.60-1.20); POTASSIUM 4.7 mmol/L (3.5-5.1)
[~2016-06-12] VITALS: Ht 165.1 cm; Wt 103.2 kg
[~2016-06-12] MED LIST changes: +ACETAMINOPHEN 1000 MG/100 ML IV IV ONE; -AMOX1TAB43 PO; +ATROPINE SULFATE 0.1 MG/ML 5ML SYR IV PRN; +BUPIVACAINE 0.5 % 5 MG/1 ML MPF 30ML VIAL ONE; +CEFAZOLIN 2000 MG/60 ML D5W 60 ML IV SCH; -CRDCD240 PO; +EpHEDrine SULFATE 50MG/5ML SYR ONE; +EpHEDrine SULFATE INJ 50 MG/ML AMP IV PRN; +FENTANYL CITRATE INJ 50 MCG/1 ML 2 ML VIAL IV PRN; +FENTANYL CITRATE INJ 50 MCG/1 ML 2 ML VIAL ONE; -GFNSR600 PO; +GLYCOPYRROLATE INJ 0.2 MG/ML VIAL ONE; +HYDROCODONE/ACETAMOPHEN 5/325MG TAB PO PRN; +HYDROmorphone INJ 1 MG/ML SYR IV PRN; -KLN5X PO; +LABETALOL HCL IV 5 MG/ML 20ML IV PRN; +LACTATED RINGER'S 1000ML IV SCH; +LARYING-O-JET KIT (LTA) EXT ONE; +LIDOCAINE HCL 2% 2 ML VIAL (20MG/ML) ONE; -LSX40 PO; +MEPERIDINE HCL 25 MG/ML CARP IV PRN; +METOCLOPRAMIDE HCL INJ 5 MG/ML 2 ML VIAL ONE; -MGNO400 PO; +MIDAZOLAM HCL 1 MG/ML 2ML VIAL ONE; +NEOSTIGMINE METHYLSULFATE 5 MG/5 ML SYR ONE; +ONDANSETRON INJ 2 MG/ML 2 ML VIAL IV PRN; +ONDANSETRON INJ 2 MG/ML 2 ML VIAL ONE; +PHENYLEPHRINE 100MCG/ML 5ML SYR ONE; -POTA10TA PO; -PRED10TA PO; +PROPOFOL IV EMULSION 10 MG/ML 20 ML VIAL IV ONE; -RANI300T2 PO; +ROCURONIUM BROMIDE 10 MG/ML 5 ML VIAL ONE; -TRAM-10 PO
[2016-06-12 05:52] VITALS: BP 124/65; PULSE 53; TEMP 36.8; O2SAT 95; Ht 165.1 cm; Wt 103.2 kg
--- NOTE | 2016-06-12 06:38 | History & Physical Bridge Note ---
H&P Re-Evaluation Bridge Note: I have examined the patient, reviewed the History & Physical and in the interval since the performance of the History & Physical I have noted the following changes of clinical significance: No changes noted
--- NOTE | 2016-06-12 08:24 | [facility] Post Operative Brief Note ---
Immediate Operative Summary Operative Date June 12, 2016. Pre-Operative Diagnosis Left Chest wall Measure Post-Operative Diagnosis Left Chest Wall Mass Procedure(s) Performed Excision Left Chest Wall Mass - Dr. Hopkins Closure Left Chest Wound: Skin or Muscle Flap, Skin Graft or Primary Closure - Dr. Levine Surgeon Dr. Hopkins: Dr Levine Soils Engineer Surgeon(s) Deanna Dubose-PAC Estimated Blood Loss 20 ml Findings mass with tissue- 7x4 cm, wound 10x 9 cm, rotational flap closure superior , medoial, deep tissue ( at sternum)- also sent Specimens Permanent Specimen- A: Left Chest wall mass: Skin is anterior short silk is Superior: Long silk is Inferior; Muscle Deep. B: Additional Left chest wall mass superior/medial deep tissue. C:Additional Lateral Left Chest Wall Tissue Drains none Complication(s) None Disposition Recovery Room / PACU
--- NOTE | 2016-06-12 08:31 | [facility] Post Operative Brief Note ---
Immediate Operative Summary Operative Date June 12, 2016. Pre-Operative Diagnosis Left Chest wall Measure Post-Operative Diagnosis Left Chest Wall Mass Procedure(s) Performed Excision Left Chest Wall Mass - Dr. Hopkins Closure Left Chest Wound with rotational skin flap> [address] Hopkins: Dr Levine Food Handler Surgeon(s) Gabriel Dubose-PAC Estimated Blood Loss 20 ml Findings defect 10x 9 cm with exposed rib, unable to acheive primary closure Specimens Permanent Specimen- A: Left Chest wall mass: Skin is anterior short silk is Superior: Long silk is Inferior; Muscle Deep. B: Additional Left chest wall mass superior/medial deep tissue. C:Additional Lateral Left Chest Wall Tissue Anesthesia general Complication(s) None Disposition Recovery Room / PACU
--- NOTE | 2016-06-12 08:42 | OPERATIVE REPORT ---
DATE OF OPERATION: 06/12/2016 NAME OF OPERATION: Excision of left chest wall mass which was approximately 7 x 4 cm in tissue and then closure by Dr. Levine. STAFF SURGEON: Dr. Hopkins and Dr. Levine. SPREADER: Porfirio Dubose PA-C. PROCEDURE: The patient was brought in the operating room and placed on the operating table in supine position. Pneumatic stockings and orogastric tube were placed. After appropriate intubation and anesthetic, her chest wall was prepped and draped on the left side. It had been marked by Dr. Levine preoperatively. Initially, an elliptical incision was made longitudinally around the mass with dissection carried down around the mass. The pectoralis muscle deep to the mass was also taken and then medially it appeared that the area may be invading the sternum and additional tissue was taken. The initial left chest wall specimen was marked, it was approximately 7 x 4 cm. A short silk suture was superior, long silk suture inferior, skin was anterior, and muscle was deep. The additional superior, medial, deep tissue was also taken and sent. This was at the level of the sternum and there was concern of invasion into the sternum. With the closure, additional left lateral chest wall tissue was taken and sent for routine pathology. After the mass was excised, the overall skin wound was 10 x [address] Levine proceeded to close using a rotational flap type closure. The patient tolerated the procedure well. I attest to the content of the Intraoperative Record and any orders documented therein. Any exceptio ns are noted below.
--- NOTE | 2016-06-12 08:52 | Medical Student: [facility] ---
Operative Report Operative Date June 12, 2016. Pre-Operative Diagnosis Left chest wall mass Post-Operative Diagnosis same as pre-op Procedure(s) Performed left chest wall mass excision by Dr. Hopkins closure of excision with skin flap by Dr. Levine Surgeon Drs. Hopkins and Abner Correctional Guard Surgeon(s) Porfirio Dubose PA-C Estimated Blood Loss 20ml Findings left chest wall mass with tissue 7x4cm, wound 10x9cm with exposed rib, unable to achieve primary closure. superior medial deep tissue over sternum / left chest. rotational flap closure. Specimens 1. left chest wall mass - skin anterior and short silk superior. long silk inferior, muscle deep. 2. additional left chest wall mass - superior medial deep tisse. 3. left lateral chest wall tisue in addition to mass. Drains no Anesthesia general Complication(s) None Disposition Recovery Room / PACU
--- NOTE | 2016-06-12 09:04 | Discharge Instructions ---
Discharge Instructions Date of Service June 12, 2016. Admission Reason for Admission: Left Chest Wall Soft Tissue Mass Discharge Discharge Diagnosis / Problem: Lt chest wall mas Discharge Goals Goal(s): Decrease discomfort, Improve function, Improve disease control Activity Recommendations Activity Limitations: as noted below Lifting Limitations: no more than 10 pounds Exercise/Sports Limitations: until after follow-up appointment May Resume Sexual Activity: after follow-up appointment . Instructions / Follow-Up Instructions / Follow-Up call Dr Hopkins's office for follow up- 2 weeks [phone] Current Hospital Diet Patient's current hospital diet: Discharge Diet Recommended Diet: Regular Diet Procedures Procedures Performed: Excision Left Chest Wall Mass - Dr. Hopkins Closure Left Chest Wound with rotational skin flap> 100 cm2 Pending Studies Studies pending at discharge: no Medical Emergencies . Who to Call and When: Medical Emergencies: If at any time you feel your situation is an emergency, please call 911 immediately. . Non-Emergent Contact Non-Emergency issues call your: Primary Care Provider, Surgeon . "Provider Documentation" section prepared by Devante Hopkins. . VTE Core Measure Inpt VTE Proph given/why not?: SCD's
--- NOTE | 2016-06-12 09:13 | Anesthesiology Progress Note ---
Anesthesia Post Op Note Date & Time June 12, 2016 at 09:12 Vital Signs Pain Intensity: 3 Vital Signs Past 12 Hours Date Time Temp Pulse Resp B/P Pulse Ox O2 Delivery O2 Flow Rate FiO2 06/12/16 09:05 96 17 122/82 92 Room Air 06/12/16 08:55 95 16 133/70 98 Mask 10 06/12/16 08:45 102 13 136/85 91 Mask 10 06/12/16 08:36 36.9 106 16 123/85 95 Mask 10 06/12/16 05:52 36.8 53 18 124/65 95 Room Air Notes Mental Status: alert / awake / arousable, participated in evaluation Pt Amnestic to Procedure: Yes Nausea / Vomiting: adequately controlled Pain: adequately controlled Airway Patency, RR, SpO2: stable & adequate BP & HR: stable & adequate Hydration State: stable & adequate Anesthetic Complications: no major complications apparent
[2016-06-12 09:20] VITALS: BP 132/68; PULSE 93; TEMP 37.2; O2SAT 92
[2016-06-12 09:47] VITALS: BP 144/70; PULSE 92; O2SAT 94
[2016-06-12 10:20] VITALS: BP 136/71; PULSE 87; TEMP 36.8; O2SAT 93
--- NOTE | 2016-06-12 13:39 | OPERATIVE REPORT ---
DATE OF OPERATION: 06/12/2016 PREOPERATIVE DIAGNOSIS: Left chest wall soft tissue defect following excision of left chest wall mass. POST-PROCEDURE DIAGNOSIS: Same. PROCEDURE: Skin and soft tissue rotational flap closure defect left chest wall. SURGEON: Dr. Alice Levine and Dr. Hopkins. CERTIFIED NURSES AIDE: Porfirio Dubose PA-C. BRIEF DESCRIPTION OF THE PROCEDURE: Risks, benefits, and alternatives of the procedure were explained to the patient who agreed and signed consent. We discussed options such as primary closure, full-thickness skin graft, rotational flap, pectoralis major flap. The patient understood that closure type would be dependent on the resulting defect size. The patient was brought to the operating room where she was positioned supine and placed under anesthesia without incident. A timeout procedure was performed. Initial resection of the mass was performed by Dr. Hopkins. Following excision of this, there was a 10 x 9 cm defect with exposed sternum and rib as well; however, portions of the pectoralis muscle were intact. There was a concern for invasion of the soft tissue mass into the sternum. Options for closure were considered. As there appeared to be a reasonable amount of soft tissue along the inferior mastectomy flap, I elected to naveed a rotational flap incorporating the mastectomy scar. The flap was marked for incision and the area was anesthetized using 0.5% Marcaine plain. Incision was made using a 15 blade scalpel. It was extended laterally along the mastectomy scar. The flap was undermined at the level of the pectoralis major muscle. The surrounding soft tissue was freed up as well to facilitate advancement and closure. Flap was rotated into the defect and inset using 2-0 Vicryl deep dermal sutures. Throughout dissection and closure, hemostasis was assured using electrocautery. The skin was reapproximated using 3-0 Monocryl running subcuticular suture. Final flap dimensions were 15 x 9 x 5 cm with an initial defect size of 10 x 9 cm. Following closure, Dermabond was applied. Dry dressing was placed. The flap appeared pink, viable with bleeding edges throughout the procedure. I attest to the content of the Intraoperative Record and any orders documented therein. Any exceptio ns are noted below.
== END | disposition home or self-care (01) ==
LOC: C.ACU 05:17
PROVIDERS: ATTEND Surgery
DX: C79.89 Secondary malignant neoplasm of other specified sites (principal); F41.9 Anxiety disorder, unspecified; I10 Essential (primary) hypertension; F32.9 Major depressive disorder, single episode, unspecified; E11.9 Type 2 diabetes mellitus without complications; E78.5 Hyperlipidemia, unspecified; E83.42 Hypomagnesemia; R59.0 Localized enlarged lymph nodes; F17.210 Nicotine dependence, cigarettes, uncomplicated; E55.9 Vitamin D deficiency, unspecified; Z80.3 Family history of malignant neoplasm of breast; Z82.49 Family history of ischemic heart disease and other diseases of the circulatory system; Z85.3 Personal history of malignant neoplasm of breast; Z79.899 Other long term (current) drug therapy

== ENCOUNTER 2016-06-16 17:20 | Inpatient (IN) | payer OTHER ==
[~2016-06-16] VITALS: Ht 165.1 cm; Wt 108.5 kg
[~2016-06-16 17:20] MED LIST changes: -ACETAMINOPHEN 1000 MG/100 ML IV IV ONE; -AMOX875T PO; -ANAS1TAB19 PO; -ATROPINE SULFATE 0.1 MG/ML 5ML SYR IV PRN; -ATV/1 PO; -BUPIVACAINE 0.5 % 5 MG/1 ML MPF 30ML VIAL ONE; -CARV25TA PO; -CEFAZOLIN 2000 MG/60 ML D5W 60 ML IV SCH; -CRG625 PO; -CZR25 PO; -EpHEDrine SULFATE 50MG/5ML SYR ONE; -EpHEDrine SULFATE INJ 50 MG/ML AMP IV PRN; -FENTANYL CITRATE INJ 50 MCG/1 ML 2 ML VIAL IV PRN; -FENTANYL CITRATE INJ 50 MCG/1 ML 2 ML VIAL ONE; -FLUC100T4 PO; -GLYCOPYRROLATE INJ 0.2 MG/ML VIAL ONE; -HYDROCODONE/ACETAMOPHEN 5/325MG TAB PO PRN; -HYDROmorphone INJ 1 MG/ML SYR IV PRN; -LABETALOL HCL IV 5 MG/ML 20ML IV PRN; -LACTATED RINGER'S 1000ML IV SCH; -LARYING-O-JET KIT (LTA) EXT ONE; -LIDOCAINE HCL 2% 2 ML VIAL (20MG/ML) ONE; -LORA-741 PO; -LOSA1TAB PO; -MAGN400T6 PO; -MEPERIDINE HCL 25 MG/ML CARP IV PRN; -METF1TAB53 PO; -METOCLOPRAMIDE HCL INJ 5 MG/ML 2 ML VIAL ONE; -MIDAZOLAM HCL 1 MG/ML 2ML VIAL ONE; -NEOSTIGMINE METHYLSULFATE 5 MG/5 ML SYR ONE; -NITR1CAP32 PO; -ONDANSETRON INJ 2 MG/ML 2 ML VIAL IV PRN; -ONDANSETRON INJ 2 MG/ML 2 ML VIAL ONE; -PARO30TA3 PO; -PHEN-876 PO; -PHENYLEPHRINE 100MCG/ML 5ML SYR ONE; -PROPOFOL IV EMULSION 10 MG/ML 20 ML VIAL IV ONE; -ROCURONIUM BROMIDE 10 MG/ML 5 ML VIAL ONE
--- NOTE | 2016-06-16 17:26 | EMERGENCY ROOM VISIT NOTE ---
History Report prepared by Rupali: Moisés Spencer Under the Supervision of: Dr. Jim Talbert D.O. First contact with patient: 16:51 History of Present Illness The patient is a 60 year old who presents to the Emergency Room with complaints of persistent abdominal pain that started yesterday. The patient notes that the discomfort is in the lower left quadrant. The patient had a carcinoma removed from her chest 5 days ago. She states her chest feels fine and denies shortness of breath, chest pain, swelling or pain in her legs at this time. The patient has not started chemo or medications for the removal yet. The patient has had a PET scan in May and was told she had diverticulitis with a mild perforation. She did a full course of antibiotics at that time. She denies fevers, chills, or pain in her groin. Source of History: patient Onset: yesterday Position: abdomen (LLQ) Timing: other (persistent) Associated Symptoms: No SOB, No chest pain, No chills, No fevers Note: Denies: swelling or pain in her legs, pain in her groin Review of Systems See HPI for pertinent positives & negatives. A total of 10 systems reviewed and were otherwise negative. Past Medical & Surgical Medical Problems: (1) Acute diverticulitis (2) Colonic diverticular abscess (3) Diabetes (4) Lumbar disc herniation with radiculopathy (5) Pneumonia (6) Shortness of breath (7) SOB (shortness of breath) Surgical Problems: (1) H/O bilateral mastectomy Family History Cancer Heart disease Hypertension Social History Drug Use: none Marital Status: single Occupation Status: employed Current/Historical Medications Scheduled Cholecalciferol (Vitamin D), 1,000 UNITS PO QAM Diltiazem Hcl Extended Release (Diltiazem Hcl), 300 MG PO QAM Furosemide (Lasix), 40 MG PO QAM Metformin Hcl (Glucophage), 1,000 MG PO BID Multivitamin (Multivitamin), 1 TAB PO QAM Paroxetine (Paroxetine HCl), 20 MG PO QAM Potassium Chloride (Potassium Chloride ER), 20 MEQ PO QAM Prednisone (Prednisone), 5 MG PO QAM Vitamin A ([id number]), 1 TAB PO UD Scheduled PRN Acetaminophen (Tylenol), 1,000 MG PO Q6 PRN for Pain Hydrocodone/Acetaminophen 5MG/325MG ([place] 5MG/325MG), 1-2 TABLET PO q 6 hrs PRN for Pain Allergies Coded Allergies: Aspirin (Verified Allergy, Mild, HIVES, 06/12/16) Ibuprofen (Verified Allergy, Mild, HIVES, 06/12/16) Tamoxifen (Verified Allergy, Unknown, TEMP LOSS OF VISION IN LEFT EYE, 06/12) Physical Exam Vital Signs Date Time Temp Pulse Resp B/P Pulse Ox O2 Delivery O2 Flow Rate FiO2 06/16/16 18:21 16 97 Nasal Cannula 2.0 06/16/16 18:19 16 86 Room Air 06/16/16 18:11 104 16 120/85 95 Room Air 06/16/16 17:26 117 06/16/16 17:23 37.2 117 16 129/75 94 Room Air Physical Exam GENERAL: Patient is awake alert and somewhat anxious appearing and uncomfortable. EYES: The conjunctivae are clear. The pupils are round and reactive. EARS, NOSE, MOUTH AND THROAT: The nose is without any evidence of any deformity. Mucous membranes are moist tongue is midline NECK: The neck is nontender and supple. RESPIRATORY: Lung sounds diminished in left base, no tachypnea or conversational dyspnea noted. CARDIOVASCULAR: Tachycardic with ectopy noted to oscillation, no definite murmur noted. GASTROINTESTINAL: Mildly distended but soft. Significant LLQ tenderness and mild guarding. BACK: No midline tenderness or or step-off noted range of motion in flexion extension as well as rotation no signs of muscle spasm noted MUSCULOSKELETAL/EXTREMITIES: There is no evidence of gross deformity full range of motion is noted in the hips and shoulders SKIN: There is no obvious evidence of any rash. There are no petechiae, pallor or cyanosis noted. Trace pedal edema bilaterally, healing surgical site noted over left anterior chest wall, no erythema, bleeding or dehiscence NEUROLOGIC: Patient is awake alert and oriented x3 Medical Decision & Procedures ER Provider Diagnostic Interpretation: Radiology results as stated below per my review and radiologist interpretation: CHEST ONE VIEW PORTABLE HISTORY: Generalized abdominal pain. COMPARISON: Chest 02/08/2016. FINDINGS: No pneumothorax. The heart remains mildly enlarged. Mild diffuse interstitial thickening has improved suggesting mild congestive change. There are surgical clips within the axilla. Suspect a trace left pleural effusion which has improved. No new focal lung consolidations. IMPRESSION: Improvement in the pulmonary vascular congestion and trace left pleural effusion. Electronically signed by: Sebastien Lovett M.D. 06/16/2016 5:49 PM Dictated Date/Time: 06/16/2016 5:47 PM ABDOMEN AND PELVIS CT WITH IV CONTRAST CT DOSE: 1157.05 mGy.cm HISTORY: Left lower quadrant abdominal pain. TECHNIQUE: Multiaxial CT images of the abdomen and pelvis were performed following the use of intravenous contrast. COMPARISON STUDY: Head CT 05/17/2016. FINDINGS: There is interlobular septal thickening, cardiomegaly, and small bilateral pleural effusions. This is consistent with mild interstitial pulmonary edema. Groundglass densities within the lung bases posteriorly may represent atelectasis or pneumonia. 1.3 cm sclerotic focus within the left femoral head. This remains stable. There is also a stable 1.3 cm sclerotic focus within the right sacrum. No hepatic or splenic masses. The adrenal glands and pancreas are unremarkable. There are few tiny stones within the gallbladder. The kidneys enhance normally. No hydronephrosis. Stable prominent periportal lymph nodes. These do not demonstrate abnormal FDG uptake on the prior study and are likely benign. A few prominent left pelvic sidewall lymph nodes remain unchanged. These may be reactive. No evidence for bowel obstruction. Normal appendix. Colonic diverticulosis. Persistent thickening within the mid sigmoid colon with mild pericolonic fat stranding and a few mildly enlarged pericolonic lymph nodes. This is similar to slightly improved compared to the prior study. A small extraluminal gas collection at this site has improved/resolved. 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 The fistula also appears to extend to the bladder dome. However, there is no definite gas within the bladder lumen at this time. There is mild thickening of the bladder dome. There is also a new area of thickening involving the proximal sigmoid colon with surrounding pericolonic fat stranding. This is consistent with an additional site of acute diverticulitis. There is adjacent 3.1 x 1.2 cm gas and fluid collection within the left lower quadrant abutting the colon consistent with a small abscess. IMPRESSION: 1. Thickening and pericolonic fat within the proximal sigmoid colon consistent with acute diverticulitis. This is new from the prior study. There is also a 3.1 x 1.2 cm pericolonic abscess at this location. 2. Stable to slight improvement in the mid sigmoid colon diverticulitis compared to the prior study. The small extraluminal gas collection has essentially resolved. However, there are few fistulas now extending from the thickened mid sigmoid colon to a small bowel loop within the right lower quadrant. A fistula also extends to the bladder dome. However, there is no gas within the bladder lumen at this time. Recommend correlation with urinalysis assess for a colovesical fistula. 3. Mild pulmonary edema and small bilateral pleural fusions. 4. Stable 1.3 cm sclerotic foci within the left femoral head and right sacrum. These are nonspecific but did not demonstrate abnormal FDG uptake on the prior PET/CT. 5. Follow-up colonoscopy is recommended to exclude an underlying colonic mass given the long-standing diverticulitis. Electronically signed by: Sebastien Lovett M.D. 06/16/2016 6:34 PM Dictated Date/Time: 06/16/2016 6:17 PM Laboratory Results 06/16/16 17:30 Red Blood Count 4.52, Mean Corpuscular Volume 93.4, Mean Corpuscular Hemoglobin 29.4, Mean Corpuscular Hemoglobin Concent 31.5, Mean Platelet Volume 10.3, Neutrophils (%) (Auto) 73.8, Lymphocytes (%) (Auto) 18.4, Monocytes (%) (Auto) 6.9, Eosinophils (%) (Auto) 0.2, Basophils (%) (Auto) 0.2, Neutrophils # (Auto) 13.53, Lymphocytes # (Auto) 3.38, Monocytes # (Auto) 1.27, Eosinophils # (Auto) 0.04, Basophils # (Auto) 0.03 06/16/16 17:30 Test 06/16/16 17:30 06/16/16 17:41 White Blood Count 18.35 K/uL (4.8-10.8) Red Blood Count 4.52 M/uL (4.2-5.4) Hemoglobin 13.3 g/dL (12.0-16.0) Hematocrit 42.2 % (37-47) Mean Corpuscular Volume 93.4 fL (80-100) Mean Corpuscular Hemoglobin 29.4 pg (25-34) Mean Corpuscular Hemoglobin Concent 31.5 g/dl (32-36) Platelet Count 355 K/uL (130-400) Mean Platelet Volume 10.3 fL (7.4-10.4) Neutrophils (%) (Auto) 73.8 % Lymphocytes (%) (Auto) 18.4 % Monocytes (%) (Auto) 6.9 % Eosinophils (%) (Auto) 0.2 % Basophils (%) (Auto) 0.2 % Neutrophils # (Auto) 13.53 K/uL (1.4-6.5) Lymphocytes # (Auto) 3.38 K/uL (1.2-3.4) Monocytes # (Auto) 1.27 K/uL (0.11-0.59) Eosinophils # (Auto) 0.04 K/uL (0-0.5) Basophils # (Auto) 0.03 K/uL (0-0.2) RDW Standard Deviation 46.9 fL (36.4-46.3) RDW Coefficient of Variation 13.8 % (11.5-14.5) Immature Granulocyte % (Auto) 0.5 % Immature Granulocyte # (Auto) 0.10 K/uL (0.00-0.02) Prothrombin Time 12.9 SECONDS (9.0-12.0) Prothromb Time International Ratio 1.2 (0.9-1.1) Activated Partial Thromboplast Time 30.1 SECONDS (21.0-31.0) Partial Thromboplastin Ratio 1.2 Est Creatinine Clear Calc Drug Dose 91.4 ml/min Estimated GFR () 96.6 Estimated GFR (Non- 83.3 BUN/Creatinine Ratio 12.6 (10-20) Calcium Level 9.2 mg/dl (8.5-10.1) Magnesium Level 1.9 mg/dl (1.8-2.4) Total Bilirubin 0.8 mg/dl (0.2-1) Direct Bilirubin 0.2 mg/dl (0-0.2) Aspartate Amino Transf (AST/SGOT) 6 U/L (15-37) Alanine Aminotransferase (ALT/SGPT) 18 U/L (12-78) Alkaline Phosphatase 63 U/L (45-117) Total Protein 7.3 gm/dl (6.4-8.2) Albumin 3.2 gm/dl (3.4-5.0) Lipase 54 U/L (73-393) Bedside Hemoglobin 13.9 g/dl (12.0-16.0) Bedside Hematocrit 41 % (37-47) Bedside Sodium 138 mEq/L (135-144) Bedside Potassium 4.0 mEq/L (3.3-5.0) Bedside Chloride 99 mEq/L (101-112) Bedside Total CO2 23 mEq/l (24-31) Anion Gap 21.0 mmol/L (16-25) Bedside Blood Urea Nitrogen 9 mg/dl (7-18) Bedside Creatinine 0.6 mg/dl (0.6-1.3) Bedside Glucose (other) 152 mg/dl (70-99) Bedside Ionized Calcium (Goldy) 1.15 mmol/l (1.12-1.32) Laboratory results per my review. Medications Administered Medications (Trade) Dose Ordered Sig/Omkar Route Start Time Stop Time Status Last Admin Dose Admin Sodium Chloride (Nss 1000ml) 1,000 ml @ 999 mls/hr Q1H1M STAT IV 06/16/16 17:28 06/16/16 18:28 DC 06/16/16 17:46 999 MLS/HR Ondansetron HCl (Zofran Inj) 4 mg NOW STAT IV 06/16/16 17:28 06/16/16 17:29 DC 06/16/16 17:47 4 MG Morphine Sulfate (MoRPHine SULFATE INJ) 4 mg Q15M PRN IV 06/16/16 17:30 06/16/16 21:16 DC 06/16/16 19:22 4 MG Piperacillin Sod/ Tazobactam Sod (Zosyn Iv) 4.5 gm NOW STAT IV 06/16/16 18:32 06/16/16 18:33 DC 06/16/16 18:39 4.5 GM ED Course 1656: The patient was evaluated in room A3. A complete history and physical examination were performed. 1728: Ordered Zofran Inj 4 mg IV, NSS 1000 ml @ 999 mls/hr IV. 173: Ordered Morphine Sulfate 4 mg IV. 1821: At this time, I reevaluated the patient and updated her on her findings. 1831: Ordered Zosyn Iv 4.5 gm IV. 1927: At this time, I discussed the patient's case with Dr. Rodriguez - Hospitalist [facility] and he agreed to accept the patient for further evaluation. Medical Decision Differential diagnosis: Etiologies such as appendicitis, diverticulitis, PUD, biliary pathology, UTI, pancreatitis, obstruction, mesenteric ischemia, aortic pathology, infections, inflammatory bowel disease, renal colic, as well as others were entertained. Nursing notes reviewed. The patient's previous electronic medical records reviewed. The patient is a 60-year-old female who presented to the emergency department for an evaluation of lower abdominal pain. The patient has a history of recent diagnosed cancer and had a PET scan last month. The PET scan among other things did show signs of diverticulitis in the colon. She had a full course of antibiotics but returns today because of return of pain in her left lower quadrant. The patient's history and physical exam appeared to be consistent with significant diverticulitis. She was found have an elevated white blood cell count. She was started on IV antibiotics and IV fluids in the emergency department. The patient was reevaluated multiple times. I discussed the patient' s laboratory and radiographic studies with her. Given the extent of the diverticulitis as well as the new findings on CT of the abdomen and pelvis I discussed her case with the on-call [facility] hospitalist group. They've agreed to evaluate the patient in the emergency department for further management and disposition. Consults Time Called: [phone] Consulting Physician: Dr. Rodriguez - Hospitalist [facility] Returned Call: 1927 At this time, I discussed the patient's case with Dr. Rodriguez and he agreed to accept the patient for further evaluation. Impression Primary Impression: Diverticulitis of intestine with perforation and abscess Additional Impression: Elevated WBC count Scribe Attestation The scribe's documentation has been prepared under my direction and personally reviewed by me in its entirety. I confirm that the note above accurately reflects all work, treatment, procedures, and medical decision making performed by me. Departure Information Dispostion Being Evaluated By Hospitalist Problem Qualifiers Primary Impression: Diverticulitis of intestine with perforation and abscess Diverticulitis site: large intestine Diverticulitis bleeding: without bleeding Qualified Codes: K57.20 - Diverticulitis of large intestine with perforation and abscess without bleeding
[2016-06-16] MEDS ORDERED: SODIUM CHLORIDE 0.9% 1000ML 1,000 ML IV STA (17:28)
[2016-06-16] MEDS ORDERED: ONDANSETRON INJ 2 MG/ML 2 ML VIAL IV STA (17:28)
[2016-06-16] MEDS ORDERED: OPTIRAY 320 IV PRN (17:45)
[2016-06-16] MEDS: MoRPHine SULFATE 4 MG/ML 1 ML CARP\\VIAL IV PRN ×2 (17:47→19:22)
[2016-06-16 17:49] LABS: BASO % 0.2 %; BASO ABS # 0.03 K/uL (0-0.2); COMPLETE YES; EOS % 0.2 %; HEMATOCRIT 42.2 % (37-47); IG% 0.5 %; LYMPH % 18.4 %; LYMPH ABS # 3.38 K/uL (1.2-3.4); MEAN CELL VOLUME 93.4 fL (80-100); MEAN CORPUSCULAR HEMOGLOBIN 29.4 pg (25-34); MEAN CORPUSCULAR HGB CONC 31.5 g/dl (32-36); MEAN PLATELET VOLUME 10.3 fL (7.4-10.4); MONO % 6.9 %; NEUT % 73.8 %; PLATELET COUNT 355 K/uL (130-400); RED BLOOD COUNT 4.52 M/uL (4.2-5.4); WHITE BLOOD COUNT 18.35 K/uL (4.8-10.8)
--- NOTE | 2016-06-16 17:50 | DIAGNOSTIC IMAGING REPORT ---
CHEST ONE VIEW PORTABLE HISTORY: Generalized abdominal pain. COMPARISON: Chest 02/08/2016. FINDINGS: No pneumothorax. The heart remains mildly enlarged. Mild diffuse interstitial thickening has improved suggesting mild congestive change. There are surgical clips within the axilla. Suspect a trace left pleural effusion which has improved. No new focal lung consolidations. IMPRESSION: Improvement in the pulmonary vascular congestion and trace left pleural effusion. Electronically signed by: Sebastien Lovett M.D. 06/16/2016 5:49 PM Dictated Date/Time: 06/16/2016 5:47 PM
[2016-06-16 17:54] LABS: ISTAT CREATININE 0.6 mg/dl (0.6-1.3); ISTAT HEMOGLOBIN 13.9 g/dl (12.0-16.0); ISTAT IONIZED CALCIUM 1.15 mmol/l (1.12-1.32)
[2016-06-16 18:00] LABS: INR 1.2 (0.9-1.1); PARTIAL THROMBOPLASTIN RATIO 1.2; PROTHROMBIN TIME (PATIENT) 12.9 SECONDS (9.0-12.0)
[2016-06-16 18:16] LABS: BUN/CREATININE RATIO 12.6 (10-20); CALCIUM 9.2 mg/dl (8.5-10.1); CREATININE 0.77 mg/dl (0.60-1.20)
[2016-06-16] MEDS ORDERED: PIPERACILLIN/TAZOBACTAM 4.5 GM/100ML D5W IV STA (18:32)
--- NOTE | 2016-06-16 18:36 | DIAGNOSTIC IMAGING REPORT ---
ABDOMEN AND PELVIS CT WITH IV CONTRAST CT DOSE: 1157.05 mGy.cm HISTORY: Left lower quadrant abdominal pain. TECHNIQUE: Multiaxial CT images of the abdomen and pelvis were performed following the use of intravenous contrast. COMPARISON STUDY: Head CT 05/17/2016. FINDINGS: There is interlobular septal thickening, cardiomegaly, and small bilateral pleural effusions. This is consistent with mild interstitial pulmonary edema. Groundglass densities within the lung bases posteriorly may represent atelectasis or pneumonia. 1.3 cm sclerotic focus within the left femoral head. This remains stable. There is also a stable 1.3 cm sclerotic focus within the right sacrum. No hepatic or splenic masses. The adrenal glands and pancreas are unremarkable. There are few tiny stones within the gallbladder. The kidneys enhance normally. No hydronephrosis. Stable prominent periportal lymph nodes. These do not demonstrate abnormal FDG uptake on the prior study and are likely benign. A few prominent left pelvic sidewall lymph nodes remain unchanged. These may be reactive. No evidence for bowel obstruction. Normal appendix. Colonic diverticulosis. Persistent thickening within the mid sigmoid colon with mild pericolonic fat stranding and a few mildly enlarged pericolonic lymph nodes. This is similar to slightly improved compared to the prior study. A small extraluminal gas collection at this site has improved/resolved. 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 The fistula also appears to extend to the bladder dome. However, there is no definite gas within the bladder lumen at this time. There is mild thickening of the bladder dome. There is also a new area of thickening involving the proximal sigmoid colon with surrounding pericolonic fat stranding. This is consistent with an additional site of acute diverticulitis. There is adjacent 3.1 x 1.2 cm gas and fluid collection within the left lower quadrant abutting the colon consistent with a small abscess. IMPRESSION: 1. Thickening and pericolonic fat within the proximal sigmoid colon consistent with acute diverticulitis. This is new from the prior study. There is also a 3.1 x 1.2 cm pericolonic abscess at this location. 2. Stable to slight improvement in the mid sigmoid colon diverticulitis compared to the prior study. The small extraluminal gas collection has essentially resolved. However, there are few fistulas now extending from the thickened mid sigmoid colon to a small bowel loop within the right lower quadrant. A fistula also extends to the bladder dome. However, there is no gas within the bladder lumen at this time. Recommend correlation with urinalysis assess for a colovesical fistula. 3. Mild pulmonary edema and small bilateral pleural fusions. 4. Stable 1.3 cm sclerotic foci within the left femoral head and right sacrum. These are nonspecific but did not demonstrate abnormal FDG uptake on the prior PET/CT. 5. Follow-up colonoscopy is recommended to exclude an underlying colonic mass given the long-standing diverticulitis. Electronically signed by: Sebastien Lovett M.D. 06/16/2016 6:34 PM Dictated Date/Time: 06/16/2016 6:17 PM
[2016-06-16] MEDS ORDERED: GLUCOSE 40% GEL 15 GM TUBE PO PRN (20:00)
[2016-06-16] MEDS ORDERED: MoRPHine SULFATE 4 MG/ML 1 ML CARP\\VIAL IV PRN (20:00)
[2016-06-16] MEDS ORDERED: ONDANSETRON INJ 2 MG/ML 2 ML VIAL IV PRN (20:00)
[2016-06-16] MEDS ORDERED: DEXTROSE 50% 50 ML SYR IV PRN (20:00)
[2016-06-16] MEDS ORDERED: GLUCAGON FOR INJ 1 MG VIAL SQ PRN (20:00)
[2016-06-16] MEDS ORDERED: GLUCOSE 10 TABS/TUBE PO PRN (20:00)
[2016-06-16] MEDS ORDERED: VANCOMYCIN INJ 2,500 MG in SODIUM CHLORIDE 0.9% 500ML 500 ML IV STA (20:08)
[2016-06-16] MEDS ORDERED: DILTIAZEM HCL 5 MG/ML 5 ML VIAL IV PRN (20:15)
[2016-06-16] MEDS: INSULIN ASPART 100 UNITS/ML 3 ML PEN SC SCH (21:00)
[2016-06-16 21:03] VITALS: BP 107/71; PULSE 104; TEMP 37.3; O2SAT 95; Ht 165.1 cm; Wt 108.5 kg
[2016-06-16] MEDS ORDERED: VANCOMYCIN CONSULT ACTIVE PRN (21:45)
[2016-06-16] MEDS ORDERED: PIPERACILL/TAZOBAC CONSULT ACTIVE PRN (21:45)
--- NOTE | 2016-06-16 21:50 | Pharmacy Progress Note ---
Pharmacy Antibiotic Consult Date of Service: June 16, 2016. Pharmacy Dosing Scope Pharmacy is consulted to initiate Vancomycin and Zosyn IV dosing therapy, order appropriate labs and adjust drug dose/frequency. Subjective The patient is a 60 year old female admitted on June 16, 2016 at 19:50. Objective Height (Feet): 5 Height (Inches): 5.00 Weight (Kilograms): 103.100 Lab Results (24hrs): Test 06/16/16 17:30 06/16/16 17:41 White Blood Count 18.35 K/uL (4.8-10.8) Red Blood Count 4.52 M/uL (4.2-5.4) Hemoglobin 13.3 g/dL (12.0-16.0) Hematocrit 42.2 % (37-47) Mean Corpuscular Volume 93.4 fL (80-100) Mean Corpuscular Hemoglobin 29.4 pg (25-34) Mean Corpuscular Hemoglobin Concent 31.5 g/dl (32-36) Platelet Count 355 K/uL (130-400) Mean Platelet Volume 10.3 fL (7.4-10.4) Neutrophils (%) (Auto) 73.8 % Lymphocytes (%) (Auto) 18.4 % Monocytes (%) (Auto) 6.9 % Eosinophils (%) (Auto) 0.2 % Basophils (%) (Auto) 0.2 % Neutrophils # (Auto) 13.53 K/uL (1.4-6.5) Lymphocytes # (Auto) 3.38 K/uL (1.2-3.4) Monocytes # (Auto) 1.27 K/uL (0.11-0.59) Eosinophils # (Auto) 0.04 K/uL (0-0.5) Basophils # (Auto) 0.03 K/uL (0-0.2) RDW Standard Deviation 46.9 fL (36.4-46.3) RDW Coefficient of Variation 13.8 % (11.5-14.5) Immature Granulocyte % (Auto) 0.5 % Immature Granulocyte # (Auto) 0.10 K/uL (0.00-0.02) Prothrombin Time 12.9 SECONDS (9.0-12.0) Prothromb Time International Ratio 1.2 (0.9-1.1) Activated Partial Thromboplast Time 30.1 SECONDS (21.0-31.0) Partial Thromboplastin Ratio 1.2 Sodium Level 138 mmol/L (136-145) Potassium Level 4.0 mmol/L (3.5-5.1) Chloride Level 103 mmol/L (98-107) Carbon Dioxide Level 26 mmol/L (21-32) Anion Gap 9.0 mmol/L (3-11) 21.0 mmol/L (16-25) Blood Urea Nitrogen 10 mg/dl (7-18) Creatinine 0.77 mg/dl (0.60-1.20) Est Creatinine Clear Calc Drug Dose 91.4 ml/min Estimated GFR () 96.6 Estimated GFR (Non- 83.3 BUN/Creatinine Ratio 12.6 (10-20) Random Glucose 145 mg/dl (70-99) Calcium Level 9.2 mg/dl (8.5-10.1) Magnesium Level 1.9 mg/dl (1.8-2.4) Total Bilirubin 0.8 mg/dl (0.2-1) Direct Bilirubin 0.2 mg/dl (0-0.2) Aspartate Amino Transf (AST/SGOT) 6 U/L (15-37) Alanine Aminotransferase (ALT/SGPT) 18 U/L (12-78) Alkaline Phosphatase 63 U/L (45-117) Total Protein 7.3 gm/dl (6.4-8.2) Albumin 3.2 gm/dl (3.4-5.0) Lipase 54 U/L (73-393) Bedside Hemoglobin 13.9 g/dl (12.0-16.0) Bedside Hematocrit 41 % (37-47) Bedside Sodium 138 mEq/L (135-144) Bedside Potassium 4.0 mEq/L (3.3-5.0) Bedside Chloride 99 mEq/L (101-112) Bedside Total CO2 23 mEq/l (24-31) Bedside Blood Urea Nitrogen 9 mg/dl (7-18) Bedside Creatinine 0.6 mg/dl (0.6-1.3) Bedside Glucose (other) 152 mg/dl (70-99) Bedside Ionized Calcium (Goldy) 1.15 mmol/l (1.12-1.32) Micro Results: No cultures obtained Assessment & Plan Assessment * 60 y/o F on empiric IV Vancomycin, Zosyn, and Flagyl (not a consult) for diverticulitis/GI infection. No H&P available for review at this time. * Renal function appears to be at baseline. Most recent sCr = 0.77 mg/dL with estimated CrCl ~91 mL/min. Estimated pharmacokinetic parameters: * Ke ~0.0799/hr, T1/2 ~8.7 hrs * Given her obesity with BMI 37.8 kg/m2, she is at risk for drug accumulation. Therefore, will dose Vancomycin conservatively. Plan VANCOMYCIN * Give Vancomycin 2500mg (~24mg/kg) IV x 1 as a loading dose * Initiate Vancomycin 1400mg (~13mg/kg) IV q10 as maintenance regimen * Goal Vancomycin trough 15-20 mcg/mL * Trough level ordered for 06/18 @ 1130 (prior to 4th dose and therefore should be reflective of steady state) ZOSYN * Initiate Zosyn 4.5g IV q8 (extended infusion over 4 hours) for CrCl >20 mL/ min and obesity Pharmacy will continue to follow and will adjust dose/frequency as necessary. Thank you
[2016-06-16] MEDS: LORAZEPAM 2 MG/ML 1 ML VIAL IV PRN (22:13)
[2016-06-16] MEDS: MoRPHine SULFATE 2 MG/ML CARP IV PRN (22:13)
[2016-06-16] MEDS: NSS + 20MEQ KCL 1000ML 1,000 ML IV SCH (22:13)
[2016-06-16] MEDS: METRONIDAZOLE / NSS 500 MG in PREMIXED NSS 100 ML IV SCH (22:13)
[2016-06-16] MEDS: ACETAMINOPHEN IV 100 ML IV PRN (22:14)
--- NOTE | 2016-06-16 23:25 | History and Physical ---
History & Physical Date & Time of Service: June 16, 2016 at 23:25 Chief Complaint: Acute Diverticulitis, Colonic Diverticular Abscess Primary Care Physician: Armand Kearney M.D. History of Present Illness Source: patient The patient is a 60-year-old female who presents emergency department with left lower quadrant abdominal pain that began yesterday. She underwent breast cancer surgery on the left side 5 days ago. She did have a PET scan done in May, and was told she had diverticulosis with mild perforation at that time, he completed a full course of antibiotics. She has not had any fevers or chills , nausea or vomiting. She's not had a blood in stool or urine. Past Medical/Surgical History Medical Problems: (1) Diabetes Status: Chronic (2) Lumbar disc herniation with radiculopathy Status: Resolved Surgical Problems: (1) H/O bilateral mastectomy Status: Resolved Family History Cancer Heart disease Hypertension Social History Smoking Status: Current Every Day Smoker Smokeless Tobacco Use: No Alcohol Use: none Drug Use: none Marital Status: single Housing status: lives alone Occupational Status: employed Immunizations History of Tetanus Vaccine?: APPROX 10 YRS AGO History of Pneumococcal: No History of Hepatitis B Vaccine: YES UNKNOWN DATE Multi-Drug Resistant Organisms History of MDRO: No Allergies Coded Allergies: Aspirin (Verified Allergy, Mild, HIVES, 06/12/16) Ibuprofen (Verified Allergy, Mild, HIVES, 06/12/16) Tamoxifen (Verified Allergy, Unknown, TEMP LOSS OF VISION IN LEFT EYE, 06/12) Home Medications Scheduled Cholecalciferol (Vitamin D), 1,000 UNITS PO QAM Diltiazem Hcl Extended Release (Diltiazem Hcl), 300 MG PO QAM Furosemide (Lasix), 40 MG PO QAM Metformin Hcl (Glucophage), 1,000 MG PO BID Multivitamin (Multivitamin), 1 TAB PO QAM Paroxetine (Paroxetine HCl), 20 MG PO QAM Potassium Chloride (Potassium Chloride ER), 20 MEQ PO QAM Prednisone (Prednisone), 5 MG PO QAM Vitamin A ([id number]), 1 TAB PO UD Scheduled PRN Acetaminophen (Tylenol), 1,000 MG PO Q6 PRN for Pain Hydrocodone/Acetaminophen 5MG/325MG (Sc[place]ey 5MG/325MG), 1-2 TABLET PO q 6 hrs PRN for Pain Review of Systems Constitutional: No chills, No fatigue, No fever, No problem reported, No sweats , No weakness, No weight loss Eyes: No diplopia, No discharge, No eye pain, No problem reported, No redness, No worsening of vision ENT: No dental problems, No hearing loss, No nasal symptoms, No problem reported, No sore throat, No tinnitus, No trouble swallowing, No unusual epistaxis Respiratory: No cough, No dyspnea at rest, No dyspnea on exertion, No hemoptysis, No problem reported, No shortness of breath, No sputum, No wheezing Cardiovascular: No PND, No chest pain, No claudication, No edema, No orthopnea , No palpitations, No problem reported Abdomen: + nausea, + pain, No GI bleeding, No constipation, No diarrhea, No vomiting Musculoskeletal: No calf pain, No joint pain, No muscle pain, No problem reported, No swelling Genitourinary - Female: No dysmenorrhea, No dysuria, No hematuria, No menorrhagia, No metrorrhagia, No , No problem reported, No rash, No urinary frequency, No urinary incontinence, No urinary retention, No urinary urgency, No vaginal bleeding, No vaginal discharge, No vaginal itching, No vulvodynia Neurologic: No balance problems, No memory loss, No numbness/tingling, No paralysis, No problem reported, No vertigo, No weakness Psychiatric: No anhedonism, No anxiety, No depression symptoms, No insomnia, No problem reported, No substance abuse Integumentary: No bleeding, No color change, No itch, No new/changing skin lesions, No problem reported, No rash Allergic / Immunologic: No environmental allergies, No food allergies, No frequent infections, No hives, No pet sensitivities, No poor healing, No problem reported, No prolonged convalescence, No seasonal allergies Physical Exam Vital Signs Date Time Temp Pulse Resp B/P Pulse Ox O2 Delivery O2 Flow Rate FiO2 06/16/16 20:50 99 15 106/43 95 06/16/16 20:25 99 15 106/43 95 Nasal Cannula 2.0 06/16/16 18:21 16 97 Nasal Cannula 2.0 06/16/16 18:19 16 86 Room Air 06/16/16 18:11 104 16 120/85 95 Room Air 06/16/16 17:26 117 06/16/16 17:23 37.2 117 16 129/75 94 Room Air General Appearance: WD/WN, no apparent distress Head: normocephalic, atraumatic Eyes: normal inspection, PERRL, EOMI, sclerae normal ENT: normal ENT inspection, hearing grossly normal, + pertinent finding ( mucous membranes are dry.) Neck: supple, no adenopathy, thyroid normal, no JVD, no carotid bruits, trachea midline Respiratory/Chest: chest non-tender, lungs clear, normal breath sounds, no respiratory distress, no accessory muscle use Cardiovascular: no edema, no gallop, no JVD, no murmur, normal peripheral pulses, + extra beats (frequent PVCs) Abdomen/GI: soft, no organomegaly, no pulsatile mass, + tenderness (left lower quadrant), + abnormal bowel sounds (hypoactive) Back: normal inspection, no CVA tenderness, no muscle spasm, normal range of motion Extremities/Musculoskelatal: normal inspection, no calf tenderness, normal capillary refill, no pedal edema, normal range of motion, non-tender 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, no motor/sensory deficits, alert, normal mood/affect, normal reflexes, oriented x 3 Skin: normal color, warm/dry, no rash Lymphatic: no adenopathy Diagnostics Laboratory Results Results Past 24 Hours Test 06/16/16 17:30 06/16/16 17:41 06/16/16 21:47 Range/Units White Blood Count 18.35 4.8-10.8 K/uL Red Blood Count 4.52 4.2-5.4 M/uL Hemoglobin 13.3 12.0-16.0 g/dL Hematocrit 42.2 37-47 % Mean Corpuscular Volume 93.4 80-100 fL Mean Corpuscular Hemoglobin 29.4 25-34 pg Mean Corpuscular Hemoglobin Concent 31.5 32-36 g/dl Platelet Count 355 130-400 K/uL Mean Platelet Volume 10.3 7.4-10.4 fL Neutrophils (%) (Auto) 73.8 % Lymphocytes (%) (Auto) 18.4 % Monocytes (%) (Auto) 6.9 % Eosinophils (%) (Auto) 0.2 % Basophils (%) (Auto) 0.2 % Neutrophils # (Auto) 13.53 1.4-6.5 K/uL Lymphocytes # (Auto) 3.38 1.2-3.4 K/uL Monocytes # (Auto) 1.27 0.11-0.59 K/uL Eosinophils # (Auto) 0.04 0-0.5 K/uL Basophils # (Auto) 0.03 0-0.2 K/uL RDW Standard Deviation 46.9 36.4-46.3 fL RDW Coefficient of Variation 13.8 11.5-14.5 % Immature Granulocyte % (Auto) 0.5 % Immature Granulocyte # (Auto) 0.10 0.00-0.02 K/uL Prothrombin Time 12.9 9.0-12.0 SECONDS Prothromb Time International Ratio 1.2 0.9-1.1 Activated Partial Thromboplast Time 30.1 21.0-31.0 SECONDS Partial Thromboplastin Ratio 1.2 Sodium Level 138 136-145 mmol/L Potassium Level 4.0 3.5-5.1 mmol/L Chloride Level 103 98-107 mmol/L Carbon Dioxide Level 26 21-32 mmol/L Anion Gap 9.0 21.0 16-25 mmol/L Blood Urea Nitrogen 10 7-18 mg/dl Creatinine 0.77 0.60-1.20 mg/dl Est Creatinine Clear Calc Drug Dose 91.4 ml/min Estimated GFR () 96.6 Estimated GFR (Non- 83.3 BUN/Creatinine Ratio 12.6 10-20 Random Glucose 145 70-99 mg/dl Calcium Level 9.2 8.5-10.1 mg/dl Magnesium Level 1.9 1.8-2.4 mg/dl Total Bilirubin 0.8 0.2-1 mg/dl Direct Bilirubin 0.2 0-0.2 mg/dl Aspartate Amino Transf (AST/SGOT) 6 15-37 U/L Alanine Aminotransferase (ALT/SGPT) 18 12-78 U/L Alkaline Phosphatase 63 45-117 U/L Total Protein 7.3 6.4-8.2 gm/dl Albumin 3.2 3.4-5.0 gm/dl Lipase 54 73-393 U/L Bedside Hemoglobin 13.9 12.0-16.0 g/dl Bedside Hematocrit 41 37-47 % Bedside Sodium 138 135-144 mEq/L Bedside Potassium 4.0 3.3-5.0 mEq/L Bedside Chloride 99 101-112 mEq/L Bedside Total CO2 23 24-31 mEq/l Bedside Blood Urea Nitrogen 9 7-18 mg/dl Bedside Creatinine 0.6 0.6-1.3 mg/dl Bedside Glucose (other) 152 70-99 mg/dl Bedside Ionized Calcium (Goldy) 1.15 1.12-1.32 mmol/l Bedside Glucose 134 70-90 mg/dl Diagnostic Radiology Patient Name: RAMSEY WU Unit Number: [id number] Dictated: 06/16/161746 Transcribed: 06/16/161746 PA Printed Date/Time: [~ rep prt dt]/[~ rep prt tm] [~ rep ct labl] - [~ rep ct ivnm] [facility] [place] [place] [address] Dictated: 06/16/161746 Transcribed: 06/16/161746 PAJ Printed Date/Time: [~ rep prt dt]/[~ rep prt tm] [~ rep ct labl] - [~ rep ct ivnm] CHEST ONE VIEW PORTABLE HISTORY: Generalized abdominal pain. COMPARISON: Chest 02/08/2016. FINDINGS: No pneumothorax. The heart remains mildly enlarged. Mild diffuse interstitial thickening has improved suggesting mild congestive change. There are surgical clips within the axilla. Suspect a trace left pleural effusion which has improved. No new focal lung consolidations. IMPRESSION: Improvement in the pulmonary vascular congestion and trace left pleural effusion. Electronically signed by: Sebastien Lovett M.D. 06/16/2016 5:49 PM Dictated Date/Time: 06/16/2016 5:47 PM The status of this report is Signed. Draft = Not yet reviewed or approved by Radiologist. Signed = Reviewed and approved by Radiologist. <AttendingPhy></AttendingPhy> <FamilyPhy>Armand Kearney M.D.</FamilyPhy> < PrimaryPhy>Armand Kearney M.D.</PrimaryPhy> <UnitNumber>[id number]</UnitNumber > <VisitNumber>[id number]</VisitNumber> <PatientName>RAMSEY WU</ PatientName> <DateOfBirth>1955</DateOfBirth> <Location>[facility]</Location> < ServiceDate>06/16/16</ServiceDate> <MNE>ESINDI</MNE> <OrderingPhy>Jim Talbert D.O.</OrderingPhy> <OrderingPhyMNE>f rep ord dr hamilton</OrderingPhyMNE> <DictatingPhyMNE>f rep dict dr hamilton</DictatingPhyMNE> <CCListMNE>f rep ct mne</ CCListMNE> <AdmittingPhyMNE>f pt admit dr hamilton</AdmittingPhyMNE> <AttendingPhyMNE >f pt attend dr hamilton</AttendingPhyMNE> <ConsultingPhyMNE>f pt consult dr hamilton</ConsultingPhyMNE> <FamilyPhyMNE>f pt fam dr hamilton</FamilyPhyMNE> <OtherPhyMNE>f pt other dr hamilton</OtherPhyMNE> < PrimaryPhyMNE>f pt prim care dr hamilton</PrimaryPhyMNE> <ReferringPhyMNE>f pt referring dr hamilton</ReferringPhyMNE> Patient Name: RAMSEY WU Unit Number: [id number] Dictated: 06/16/161816 Transcribed: 06/16/161816 [employer] Printed Date/Time: [~ rep prt dt]/[~ rep prt tm] [~ rep ct labl] - [~ rep ct ivnm] [facility] [place] [place] [address] Dictated: 06/16/161816 Transcribed: 06/16/161816 [facility] Printed Date/Time: [~ rep prt dt]/[~ rep prt tm] [~ rep ct labl] - [~ rep ct ivnm] ABDOMEN AND PELVIS CT WITH IV CONTRAST CT DOSE: 1157.05 mGy.cm HISTORY: Left lower quadrant abdominal pain. TECHNIQUE: Multiaxial CT images of the abdomen and pelvis were performed following the use of intravenous contrast. COMPARISON STUDY: Head CT 05/17/2016. FINDINGS: There is interlobular septal thickening, cardiomegaly, and small bilateral pleural effusions. This is consistent with mild interstitial pulmonary edema. Groundglass densities within the lung bases posteriorly may represent atelectasis or pneumonia. 1.3 cm sclerotic focus within the left femoral head. This remains stable. There is also a stable 1.3 cm sclerotic focus within the right sacrum. No hepatic or splenic masses. The adrenal glands and pancreas are unremarkable. There are few tiny stones within the gallbladder. The kidneys enhance normally. No hydronephrosis. Stable prominent periportal lymph nodes. These do not demonstrate abnormal FDG uptake on the prior study and are likely benign. A few prominent left pelvic sidewall lymph nodes remain unchanged. These may be reactive. No evidence for bowel obstruction. Normal appendix. Colonic diverticulosis. Persistent thickening within the mid sigmoid colon with mild pericolonic fat stranding and a few mildly enlarged pericolonic lymph nodes. This is similar to slightly improved compared to the prior study. A small extraluminal gas collection at this site has improved/resolved. 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 The fistula also appears to extend to the bladder dome. However, there is no definite gas within the bladder lumen at this time. There is mild thickening of the bladder dome. There is also a new area of thickening involving the proximal sigmoid colon with surrounding pericolonic fat stranding. This is consistent with an additional site of acute diverticulitis. There is adjacent 3.1 x 1.2 cm gas and fluid collection within the left lower quadrant abutting the colon consistent with a small abscess. IMPRESSION: 1. Thickening and pericolonic fat within the proximal sigmoid colon consistent with acute diverticulitis. This is new from the prior study. There is also a 3.1 x 1.2 cm pericolonic abscess at this location. 2. Stable to slight improvement in the mid sigmoid colon diverticulitis compared to the prior study. The small extraluminal gas collection has essentially resolved. However, there are few fistulas now extending from the thickened mid sigmoid colon to a small bowel loop within the right lower quadrant. A fistula also extends to the bladder dome. However, there is no gas within the bladder lumen at this time. Recommend correlation with urinalysis assess for a colovesical fistula. 3. Mild pulmonary edema and small bilateral pleural fusions. 4. Stable 1.3 cm sclerotic foci within the left femoral head and right sacrum. These are nonspecific but did not demonstrate abnormal FDG uptake on the prior PET/CT. 5. Follow-up colonoscopy is recommended to exclude an underlying colonic mass given the long-standing diverticulitis. Electronically signed by: Sebastien Lovett M.D. 06/16/2016 6:34 PM Dictated Date/Time: 06/16/2016 6:17 PM The status of this report is Signed. Draft = Not yet reviewed or approved by Radiologist. Signed = Reviewed and approved by Radiologist. <AttendingPhy></AttendingPhy> <FamilyPhy>Armand Kearney M.D.</FamilyPhy> < PrimaryPhy>Armand Kearney M.D.</PrimaryPhy> <UnitNumber>[id number]</UnitNumber > <VisitNumber>[id number]</VisitNumber> <PatientName>RAMSEY WU</ PatientName> <DateOfBirth>1955</DateOfBirth> <Location>[facility]</Location> < ServiceDate>06/16/16</ServiceDate> <MNE>ESINDI</MNE> <OrderingPhy>Jim Talbert D.O.</OrderingPhy> <OrderingPhyMNE>f rep ord dr hamilton</OrderingPhyMNE> <DictatingPhyMNE>f rep dict dr hamilton</DictatingPhyMNE> <CCListMNE>f rep ct alfonso</ CCListMNE> <AdmittingPhyMNE>f pt admit dr hamilton</AdmittingPhyMNE> <AttendingPhyMNE >f pt attend dr hamilton</AttendingPhyMNE> <ConsultingPhyMNE>f pt consult dr hamilton</ConsultingPhyMNE> <FamilyPhyMNE>f pt fam dr hamilton</FamilyPhyMNE> <OtherPhyMNE>f pt other dr hamilton</OtherPhyMNE> < PrimaryPhyMNE>f pt prim care dr hamilton</PrimaryPhyMNE> <ReferringPhyMNE>f pt referring dr hamilton</ReferringPhyMNE> Impression Assessment and Plan Acute sigmoid diverticulitis/pericolonic abscess / 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 Place on vancomycin IV per renal dosing, Zosyn 4.5 g IV every 8 hours, Flagyl 500 mg IV every 8 hours, Protonix 40 mg IV daily, Zofran 4 mg IV every 6 hours when necessary, normal saline with KCl 20 mEq 100 ML's per hour, morphine sulfate 2-4 mg IV 2 hours when necessary. She has seen Dr. Hopkins for her surgeries in the past and he will be consulted if needed. Diabetes mellitus--hold metformin 1000 mg by mouth twice a day. Place on Accu- Cheks before meals and at bedtime with NovoLog coverage for scale. Hypertension--hold Lasix 40 mg by mouth every morning, potassium chloride ER 20 mg by mouth every morning, and diltiazem extended release 3 mg by mouth every morning. We'll place on diltiazem 10 mg IV every 4 hours when necessary systolic blood pressure greater than 150. Anxiety--hold fluoxetine 20 mg by mouth every morning. Place on lorazepam 0.5 mg IV every 4 hours when necessary. Level of Care Telemetry Advanced Directives Existing Advance Directive: No Existing Living Will: No Existing Power of Tomato Paste Maker: No Resuscitation Status FULL RESUSCITATION VTE Prophylaxis VTE Risk Assessment Done? Y/N: Yes Risk Level: Moderate Given or contraindicated: SCD's Social Service Consult None Apply
[2016-06-16] MEDS: PIPERACILL/TAZOBAC IV 4.5 GM in DEXTROSE 5% 100ML 100 ML IV SCH (23:57)
[2016-06-17] VITALS (10 sets, daily range): BP systolic 88–127; BP diastolic 54–81; PULSE 51–136; TEMP 36.9–37.1; O2SAT 91–98
[2016-06-17] MEDS: METRONIDAZOLE / NSS 500 MG in PREMIXED NSS 100 ML IV SCH ×3 (06:00→21:51)
[2016-06-17] MEDS: VANCOMYCIN INJ 1,400 MG in SODIUM CHLORIDE 0.9% 500ML 500 ML IV SCH ×2 (06:00→16:55)
[2016-06-17] MEDS: MoRPHine SULFATE 2 MG/ML CARP IV PRN ×3 (06:03→21:52)
[2016-06-17 06:41] LABS: MANUAL MICROSCOPIC REQUIRED? YES; URINE APPEARANCE CLEAR (CLEAR); URINE COLOR YELLOW; URINE NITRITE NEG (NEG); URINE SPECIFIC GRAVITY <= 1.005 (1.000-1.030); UROBILINOGEN NEG (NEG)
[2016-06-17 06:50] LABS: REVIEW REQ? NO
[2016-06-17 06:52] LABS: URINE BILIRUBIN NEG (NEG)
[2016-06-17 06:54] LABS: URINE RBC 0-4 /hpf (0-4)
[2016-06-17 06:55] LABS: URINE BACTERIA NEG (NEG)
[2016-06-17 07:00] LABS: BASO % 0.2 %; BASO ABS # 0.03 K/uL (0-0.2); COMPLETE YES; EOS % 1.1 %; HEMATOCRIT 40.4 % (37-47); IG% 0.5 %; LYMPH % 12.8 %; LYMPH ABS # 1.86 K/uL (1.2-3.4); MEAN CELL VOLUME 97.3 fL (80-100); MEAN CORPUSCULAR HEMOGLOBIN 30.1 pg (25-34); MEAN CORPUSCULAR HGB CONC 30.9 g/dl (32-36); MEAN PLATELET VOLUME 10.5 fL (7.4-10.4); NEUT % 77.4 %; PLATELET COUNT 274 K/uL (130-400); RED BLOOD COUNT 4.15 M/uL (4.2-5.4); WHITE BLOOD COUNT 14.58 K/uL (4.8-10.8)
[2016-06-17 07:33] LABS: BUN/CREATININE RATIO 12.8 (10-20); CALCIUM 8.3 mg/dl (8.5-10.1); CREATININE 0.86 mg/dl (0.60-1.20); POTASSIUM 4.3 mmol/L (3.5-5.1)
[2016-06-17] MEDS: INSULIN ASPART 100 UNITS/ML 3 ML PEN SC SCH ×4 (08:13→20:49)
[2016-06-17] MEDS: NSS + 20MEQ KCL 1000ML 1,000 ML IV SCH ×2 (08:20→18:24)
[2016-06-17] MEDS: PIPERACILL/TAZOBAC IV 4.5 GM in DEXTROSE 5% 100ML 100 ML IV SCH ×2 (08:21→16:55)
[2016-06-17] MEDS: LORAZEPAM 2 MG/ML 1 ML VIAL IV PRN ×2 (08:21→21:51)
[2016-06-17] MEDS: PANTOprazole INJ 40 MG in SYRINGE 0 ML IV SCH (12:15)
[2016-06-17] MEDS: DILTIAZEM HCL 120 MG CAPCR PO SCH (12:15)
--- NOTE | 2016-06-17 12:15 | ONCOLOGY CONSULTATION ---
DATE OF CONSULTATION: 06/17/2016 DATE OF CONSULTATION: 06/17/2016. REASON FOR CONSULTATION: Metastatic breast cancer. HISTORY OF PRESENT ILLNESS: Yamel is a very pleasant, moderately obese 60-year-old female who was admitted through the Emergency Room on June 16 with left lower quadrant abdominal pain. She states that the pain began within 24 hours prior to admission. She describes the pain as a sharp, stabbing quality. Yamel was recently diagnosed with diverticular disease with mild perforation and completed antibiotics. She is presently receiving systemic antibiotics and IV fluids. I have been asked to see Yamel because of recent diagnosis of metastatic breast cancer. Yamel has been following with her doctors when she noticed a substernal mass that had been present for several weeks. CT scan done earlier this spring revealed a 2-3 cm mass which was further characterized on a PET scan done in May. PET scan described a 2.9 x 2.7 cm mass with an SUV of 6 and bilateral hilar lymphadenopathy was also noted with an SUV uptake of 2.5. Interestingly, the interpreting radiologist suggests there may have been decrease in size of these lymph nodes from January examination. Dominant peritracheal lymph node measures 14 mm, but no SUV uptake is described. Additionally, acute sigmoid diverticulitis with small focus of microperforation was noted. Yamel was subsequently referred to Dr. Devante Hopkins who removed the surgical mass on 06/12/2016. Pathologic analysis confirmed adenocarcinoma consistent with recurrent ductal carcinoma of breast origin. Tumor size 4.0 x 2.5 x 2.5 cm. Estrogen receptor 100% positive, progesterone receptor 30% positive and HER-2/eddie 2+. FISH analysis should be done to verify HER-2/eddie status. Yamel has a remote history of invasive ductal carcinoma diagnosed she believes in 2004 when she was under the care of Dr. Mk Murry. She states that the tumor was indeed ER/WY positive and lymph node negative. She received adjuvant high dose Adriamycin and cyclophosphamide x4. 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 Clinically, other than her left lower abdominal pain she describes no skeletal pain or other symptoms to suggest diffuse metastatic disease. PAST MEDICAL HISTORY: 1. Metastatic breast cancer. 2. Diabetes mellitus. 3. Lumbar disc herniation with radiculopathy. 4. Diverticular disease. 5. Hypertension. 6. Anxiety. PAST SURGICAL HISTORY: The original mastectomy in 2005. The patient opted for prophylactic right mastectomy in 2007. MEDICATIONS: Prior to admission include cholecalciferol 1000 units p.o. q. daily, diltiazem extended release 300 mg p.o. q. daily, Lasix 40 mg p.o. q.a.m., metformin 1000 mg p.o. b.i.d., multivitamin 1 tablet p.o. q.a.m., paroxetine 20 mg p.o. q.a.m., potassium chloride 20 mEq p.o. q.a.m., prednisone 5 mg p.o. q. daily, vitamin A 1 tablet p.o. daily. ALLERGIES: ASPIRIN, IBUPROFEN, TAMOXIFEN. 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 She is a nonsmoker and nondrinker. FAMILY HISTORY: Strong family history of breast cancer involving both her mother and sister. Yamel states sister was BRCA tested and found to be negative. REVIEW OF SYSTEMS: As per HPI most notably for left lower quadrant abdominal pain. Negative for fevers, chills or sweats. She is not anorexic or losing weight. SKIN: No rashes or lesions. No history of dermatoses. HEAD, EYES, EARS, NOSE, AND THROAT: Negative for headaches, lightheadedness or dizziness. No dysphagia or sore throat. LYMPH: No history of lymphoproliferative disease or peripheral lymphadenopathy. CARDIAC: Negative for coronary artery disease. No current angina or palpitations. PULMONARY: Negative for COPD. No shortness of breath, dyspnea or orthopnea. Small pleural effusions are noted on most recent CT scan of the chest. No cough or hemoptysis. GASTROINTESTINAL: As per HPI. GENITOURINARY: No history of hematuria, dysuria, urinary incontinence. PSYCHIATRIC: Positive for anxiety. ENDOCRINE: Positive for diabetes. NEUROLOGIC: Negative for seizure, stroke, or migraine headache. HEMATOLOGIC: Negative for anemia, thrombophilia or bleeding diathesis. PHYSICAL EXAMINATION: GENERAL: Yamel is a very pleasant 60-year-old postmenopausal female in no acute distress. VITAL SIGNS: Temperature 36.9, pulse 136, respirations 20, blood pressure 121/58. SKIN: Without rash or lesion. No petechiae or ecchymosis noted. Turgor is fair. HEAD, EYES, EARS, NOSE, AND THROAT: Head atraumatic, normocephalic. EYES: PERRLA, EOMI. Sclerae nonicteric. No conjunctival injection. Nares are patent without rhinorrhea or discharge. Throat is clear. Tongue is midline. Mucous membranes are moist. NECK: Supple without JVD or thyromegaly. BREASTS: Curvilinear surgical wound in the left anterior hemithorax healing well. Right mastectomy scar without nodularity. HEART: Regular rate and rhythm. No clicks, rubs, murmurs or gallops. LUNGS: Diminished breath sounds with occasional expiratory wheezes heard throughout. ABDOMEN: Soft. She is tender in the left lower quadrant. She is not rigid or guarding. No palpable hepatosplenomegaly. EXTREMITIES: Musculoskeletal strength and pulses are equal. No clubbing, cyanosis or edema otherwise. NEUROLOGICAL: She is awake, alert and oriented x3. Cranial nerves II-XII are intact. No motor or sensory deficits are noted. RADIOGRAPHIC DATA: CT scan of the abdomen and pelvis performed on admission thickening and pericolonic fat within the proximal sigmoid colon consistent with acute diverticulitis. There is also a 3.1 x 1.2 pericolic abscess at this location. Small bilateral pleural effusions are noted. Stable 1.3 cm sclerotic foci within the left femoral head and right sacrum. Significance unclear as there was no FDG uptake noted on a prior PET scan. LABORATORY DATA: WBC count 14,580, hemoglobin 12.5, platelet count 274,000 with a predominance of neutrophils. Sodium 140, potassium 4.3, chloride 106, carbon dioxide 28, creatinine 0.86, BUN 11. IMPRESSION: 1. Acute diverticulitis with pericolonic abscess. 2. Metastatic breast cancer, ER/WY positive, HER-2/eddie equivocal. 3. Diabetes mellitus. 4. Hypertension. PLAN: The primary service requests consultation for Yamel Ojeda during admission. She was scheduled to see me as outpatient next Sunday with the diagnosis of metastatic breast cancer. Her clinical summary is described in the HPI. She had a mid sternal mass removed recently by Dr. Devante Hopkins. Pap confirmed adenocarcinoma consistent with breast primary. Estrogen and progesterone receptor positive, HER-2/eddie equivocal. PET scan suggests mediastinal lymphadenopathy. However, the significance is unclear even with marginal SUV uptake. Nonetheless, taking into account the sclerotic lesion, mid sternal mass and lymphadenopathy I am compelled to recommend chemotherapy. FISH analysis should be done to verify HER-2/eddie status. Obviously, the patient needs to convalesce and will make arrangements to see her as outpatient to further discuss therapeutic options. I agree with current medical management and have nothing further to add in this regard. Will check tumor markers, particularly CA 15-3 and CA 27-29 while inhouse. Thank you very much for allowing me to participate in her care. If you have questions or concerns I will be on the rest of the weekend and can be contacted on my cell phone.
--- NOTE | 2016-06-17 13:04 | Surgery Consultation ---
Consultation Date of Consultation: June 17, 2016. 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 Hopkins with immediate flap closure by Dr. Levine 4 days ago. doing fine from that but experience severe LLQ pain...she had a bout of asymptomatic diverticulitis treated as an outpatient in May of this year. denies urinary symptoms. no change in her bowel function. 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 pt is already feeling considerably better since yesterday Past Medical/Surgical History Medical Problems: (1) CHF exacerbation Status: Acute (2) Congestive heart failure Status: Acute (3) Diverticulitis of intestine with perforation and abscess Status: Acute (4) Elevated WBC count Status: Acute (5) Frequent PVCs Status: Acute Family History Cancer Heart disease Hypertension Social History Smoking Status: Former Smoker Smokeless Tobacco Use: No Alcohol Use: none Drug Use: none Marital Status: single Housing Status: lives alone Occupation Status: employed Allergies Coded Allergies: Aspirin (Verified Allergy, Mild, HIVES, 06/12/16) Ibuprofen (Verified Allergy, Mild, HIVES, 06/12/16) Tamoxifen (Verified Allergy, Unknown, TEMP LOSS OF VISION IN LEFT EYE, 06/12) Home Medications Scheduled Cholecalciferol (Vitamin D), 1,000 UNITS PO QAM Diltiazem Hcl Extended Release (Diltiazem Hcl), 300 MG PO QAM Furosemide (Lasix), 40 MG PO QAM Metformin Hcl (Glucophage), 1,000 MG PO BID Multivitamin (Multivitamin), 1 TAB PO QAM Paroxetine (Paroxetine HCl), 20 MG PO QAM Potassium Chloride (Potassium Chloride ER), 20 MEQ PO QAM Prednisone (Prednisone), 5 MG PO QAM Vitamin A ([id number]), 1 TAB PO UD Scheduled PRN Acetaminophen (Tylenol), 1,000 MG PO Q6 PRN for Pain Hydrocodone/Acetaminophen 5MG/325MG (Niota 5MG/325MG), 1-2 TABLET PO q 6 hrs PRN for Pain Current Inpatient Medications Current Inpatient Medications Medications (Trade) Dose Ordered Sig/Omkar Route Start Time Stop Time Status Last Admin Dose Admin Ioversol 100 ml 100 ml UD PRN IV 06/16/16 17:45 06/20/16 17:44 Potassium Chloride/Sodium Chloride 1,000 ml @ 100 mls/hr Q10H IV 06/16/16 22:00 07/16/16 21:59 06/17/16 08:20 100 MLS/HR Piperacillin Sod/ Tazobactam Sod/ Dextrose (Zosyn Iv/D5 100ml) 120 ml @ 30 mls/hr Q8H IV 06/17/16 00:00 06/26/16 00:00 06/17/16 08:21 30 MLS/HR Ondansetron HCl (Zofran Inj) 4 mg Q6H PRN IV 06/16/16 20:00 07/16/16 19:59 Insulin Aspart (novoLOG ASPART) SLIDING SCALE If C... ACHS SC 06/16/16 21:00 07/16/16 20:59 Glucose (Glucose 40% Gel) UD PRN PO 06/16/16 20:00 07/16/16 19:59 Glucose (Glucose Chew Tab) 1 tabs UD PRN PO 06/16/16 20:00 07/16/16 19:59 Dextrose (Dextrose 50% 50ML Syringe) 50 ml UD PRN IV 06/16/16 20:00 07/16/16 19:59 Glucagon 1 mg 1 mg UD PRN SQ 06/16/16 20:00 07/16/16 19:59 Pantoprazole Sodium 40 mg/ Syringe 10 ml @ 5 mls/min DAILY@11 IV 06/17/16 11:00 07/17/16 10:59 Acetaminophen (Ofirmev Iv) 100 ml @ 400 mls/hr Q8H PRN IV 06/16/16 20:00 07/16/16 19:59 06/16/16 22:14 400 MLS/HR Morphine Sulfate (MoRPHine SULFATE INJ) 2 mg Q2H PRN IV 06/16/16 20:00 06/30/16 19:59 06/17/16 06:03 2 MG Morphine Sulfate (MoRPHine SULFATE INJ) 4 mg Q2H PRN IV 06/16/16 20:00 06/30/16 19:59 Lorazepam (Ativan Inj) 0.5 mg Q4H PRN IV 06/16/16 20:00 07/16/16 19:59 06/17/16 08:21 0.5 MG Diltiazem HCl 10 mg 10 mg Q4H PRN IV 06/16/16 20:15 07/16/16 20:14 Metronidazole/Prmx (Flagyl / Nss/ Premixed Nss) 100 ml @ 100 mls/hr Q8H IV 06/16/16 22:00 06/26/16 21:59 06/17/16 06:00 100 MLS/HR Vancomycin HCl (Consult) 1 ea UD PRN N/A 06/16/16 21:45 07/16/16 21:44 Piperacillin Sod/ Tazobactam Sod 1 ea 1 ea UD PRN N/A 06/16/16 21:45 07/16/16 21:44 Vancomycin HCl/ Sodium Chloride (Vancomycin Inj/ Nss 500ml) 528 ml @ 200 mls/hr Q10H IV 06/17/16 06:00 06/26/16 05:59 06/17/16 06:00 200 MLS/HR Diltiazem HCl 120 mg 120 mg QAM PO 06/17/16 12:15 07/17/16 12:14 Hydrocortisone Sodium Succinate/ Syringe (Solu-Cortef IV/ Syringe) 0.5 ml @ 4 mls/min Q8H IV 06/17/16 12:00 07/17/16 11:44 Review of Systems Abdomen: + nausea, + pain Physical Exam Date Time Temp Pulse Resp B/P Pulse Ox O2 Delivery O2 Flow Rate FiO2 06/17/16 12:00 94 Nasal Cannula 2.0 06/17/16 11:23 37.1 105 20 101/54 98 Nasal Cannula 2.0 06/17/16 08:02 36.9 136 20 121/58 91 2.0 06/17/16 08:00 93 Nasal Cannula 2.0 06/17/16 05:30 102 24 127/81 92 Nasal Cannula 2.0 06/17/16 04:00 Room Air 06/17/16 00:15 37.1 51 18 118/80 94 Nasal Cannula 2.0 06/17/16 00:01 Room Air 06/16/16 21:03 37.3 104 18 107/71 95 Nasal Cannula 2.0 06/16/16 20:50 99 15 106/43 95 06/16/16 20:25 99 15 106/43 95 Nasal Cannula 2.0 06/16/16 18:21 16 97 Nasal Cannula 2.0 06/16/16 18:19 16 86 Room Air 06/16/16 18:11 104 16 120/85 95 Room Air 06/16/16 17:26 117 06/16/16 17:23 37.2 117 16 129/75 94 Room Air General Appearance: no apparent distress Head: normocephalic, atraumatic Eyes: EOMI ENT: hearing grossly normal Neck: no JVD Respiratory/Chest: no respiratory distress, no accessory muscle use, + pertinent finding (wound from recent surgery looks perfect. minimal bruising. no drainage. no sign of infection) Abdomen/GI: soft, + pertinent finding (+LLQ tenderness. no peritoneal signs) Extremities/Musculoskelatal: no pedal edema Neurologic/Psych: alert, oriented x 3 Laboratory Results Last 24 Hours Test 06/16/16 17:30 06/16/16 17:41 06/16/16 21:47 06/17/16 06:09 White Blood Count 18.35 K/uL Red Blood Count 4.52 M/uL Hemoglobin 13.3 g/dL Hematocrit 42.2 % Mean Corpuscular Volume 93.4 fL Mean Corpuscular Hemoglobin 29.4 pg Mean Corpuscular Hemoglobin Concent 31.5 g/dl Platelet Count 355 K/uL Mean Platelet Volume 10.3 fL Neutrophils (%) (Auto) 73.8 % Lymphocytes (%) (Auto) 18.4 % Monocytes (%) (Auto) 6.9 % Eosinophils (%) (Auto) 0.2 % Basophils (%) (Auto) 0.2 % Neutrophils # (Auto) 13.53 K/uL Lymphocytes # (Auto) 3.38 K/uL Monocytes # (Auto) 1.27 K/uL Eosinophils # (Auto) 0.04 K/uL Basophils # (Auto) 0.03 K/uL RDW Standard Deviation 46.9 fL RDW Coefficient of Variation 13.8 % Immature Granulocyte % (Auto) 0.5 % Immature Granulocyte # (Auto) 0.10 K/uL Prothrombin Time 12.9 SECONDS Prothromb Time International Ratio 1.2 Activated Partial Thromboplast Time 30.1 SECONDS Partial Thromboplastin Ratio 1.2 Sodium Level 138 mmol/L Potassium Level 4.0 mmol/L Chloride Level 103 mmol/L Carbon Dioxide Level 26 mmol/L Anion Gap 9.0 mmol/L 21.0 mmol/L Blood Urea Nitrogen 10 mg/dl Creatinine 0.77 mg/dl Est Creatinine Clear Calc Drug Dose 91.4 ml/min Estimated GFR () 96.6 Estimated GFR (Non- 83.3 BUN/Creatinine Ratio 12.6 Random Glucose 145 mg/dl Calcium Level 9.2 mg/dl Magnesium Level 1.9 mg/dl Total Bilirubin 0.8 mg/dl Direct Bilirubin 0.2 mg/dl Aspartate Amino Transf (AST/SGOT) 6 U/L Alanine Aminotransferase (ALT/SGPT) 18 U/L Alkaline Phosphatase 63 U/L Total Protein 7.3 gm/dl Albumin 3.2 gm/dl Lipase 54 U/L Bedside Hemoglobin 13.9 g/dl Bedside Hematocrit 41 % Bedside Sodium 138 mEq/L Bedside Potassium 4.0 mEq/L Bedside Chloride 99 mEq/L Bedside Total CO2 23 mEq/l Bedside Blood Urea Nitrogen 9 mg/dl Bedside Creatinine 0.6 mg/dl Bedside Glucose (other) 152 mg/dl Bedside Ionized Calcium (Goldy) 1.15 mmol/l Bedside Glucose 134 mg/dl Urine Color YELLOW Urine Appearance CLEAR Urine pH 5.0 Urine Specific [place] <= 1.005 Urine Protein TRACE Urine Glucose (UA) NEG Urine Ketones TRACE Urine Occult Blood NEG Urine Nitrite NEG Urine Bilirubin NEG Urine Urobilinogen NEG Urine Leukocyte Esterase NEG Urine RBC 0-4 /hpf Urine WBC 1-5 /hpf Urine Epithelial Cells 5-10 /lpf Urine Bacteria NEG Test 06/17/16 06:31 06/17/16 06:50 06/17/16 10:35 06/17/16 11:54 White Blood Count 14.58 K/uL Red Blood Count 4.15 M/uL Hemoglobin 12.5 g/dL Hematocrit 40.4 % Mean Corpuscular Volume 97.3 fL Mean Corpuscular Hemoglobin 30.1 pg Mean Corpuscular Hemoglobin Concent 30.9 g/dl Platelet Count 274 K/uL Mean Platelet Volume 10.5 fL Neutrophils (%) (Auto) 77.4 % Lymphocytes (%) (Auto) 12.8 % Monocytes (%) (Auto) 8.0 % Eosinophils (%) (Auto) 1.1 % Basophils (%) (Auto) 0.2 % Neutrophils # (Auto) 11.28 K/uL Lymphocytes # (Auto) 1.86 K/uL Monocytes # (Auto) 1.17 K/uL Eosinophils # (Auto) 0.16 K/uL Basophils # (Auto) 0.03 K/uL RDW Standard Deviation 50.2 fL RDW Coefficient of Variation 14.2 % Immature Granulocyte % (Auto) 0.5 % Immature Granulocyte # (Auto) 0.08 K/uL Sodium Level 140 mmol/L Potassium Level 4.3 mmol/L Chloride Level 106 mmol/L Carbon Dioxide Level 28 mmol/L Anion Gap 6.0 mmol/L Blood Urea Nitrogen 11 mg/dl Creatinine 0.86 mg/dl Est Creatinine Clear Calc Drug Dose 82.9 ml/min Estimated GFR () 84.5 Estimated GFR (Non- 72.9 BUN/Creatinine Ratio 12.8 Random Glucose 151 mg/dl Calcium Level 8.3 mg/dl Magnesium Level 2.0 mg/dl Bedside Glucose 139 mg/dl 144 mg/dl Assessment & Plan 1. 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 clinically she is improving. wbc decreased today as well. no peritoneal signs. I doubt IR would even want to drain an abcess this small would continue IV antibiotics/NPO will follow along closely if clinically worsens may need transferred for IR drainage will discuss fistulas /surgical options after acute diverticulitis resolves. pt agreeable to plan discussed with primary team 2. recent surgery for chest wall mass with reconstruction wound looks great. no sign of infection. no hematoma minimal pain.
[2016-06-17] MEDS: HYDROCORTISONE IV 25 MG in SYRINGE 0 ML IV SCH ×2 (13:31→21:51)
[2016-06-17] MEDS: ACETAMINOPHEN IV 100 ML IV PRN (21:52)
--- NOTE | 2016-06-17 23:47 | Progress Note ---
Subjective Date of Service: June 17, 2016. 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), review of inpatient medication list Pain: mild LLQ abd pain PO Intake: NPO Voiding: no voiding problems tele stable overnight pt denies any orthopnea, sob, or chest pain no nausea or emesis having some stool - liquid Problem List Medical Problems: (1) CHF exacerbation Status: Acute (2) Congestive heart failure Status: Acute (3) Diverticulitis of intestine with perforation and abscess Status: Acute (4) Elevated WBC count Status: Acute (5) Frequent PVCs Status: Acute Review of Systems Constitutional: No chills, No fever Respiratory: No cough, No dyspnea at rest Cardiac: No PND, No chest pain, No edema, No orthopnea Abdomen: + pain, + see HPI Objective Vital Signs Date Time Temp Pulse Resp B/P Pulse Ox O2 Delivery O2 Flow Rate FiO2 06/17/16 22:04 37.1 89 22 103/56 94 Nasal Cannula 2.0 06/17/16 20:06 36.9 84 20 121/65 97 2.0 06/17/16 20:00 Nasal Cannula 06/17/16 16:00 95 Nasal Cannula 2.0 06/17/16 15:40 37.1 106 20 88/56 95 Nasal Cannula 2.0 06/17/16 15:40 37.1 106 20 88/56 95 Nasal Cannula 2.0 06/17/16 12:00 94 Nasal Cannula 2.0 06/17/16 11:23 37.1 105 20 101/54 98 Nasal Cannula 2.0 06/17/16 08:02 36.9 136 20 121/58 91 2.0 06/17/16 08:00 93 Nasal Cannula 2.0 06/17/16 05:30 102 24 127/81 92 Nasal Cannula 2.0 06/17/16 04:00 Nasal Cannula 06/17/16 00:15 37.1 51 18 118/80 94 Nasal Cannula 2.0 06/17/16 00:01 Nasal Cannula Physical Exam General Appearance: no apparent distress ENT: pharynx normal Neck: no JVD Respiratory/Chest: lungs clear, no respiratory distress, no accessory muscle use Cardiovascular: regular rate, rhythm, no gallop, no murmur, + extra beats Abdomen: normal bowel sounds, soft, no organomegaly, + tenderness (LLQ) Extremities: no pedal edema Neurologic/Psychiatric: alert, oriented x 3 Skin: no rash, + pertinent finding (incision, left upper chest, clean) Laboratory Results Last 24 Hours Test 06/17/16 06:09 06/17/16 06:31 06/17/16 06:50 06/17/16 10:35 Urine Color YELLOW Urine Appearance CLEAR Urine pH 5.0 Urine Specific [place] <= 1.005 Urine Protein TRACE Urine Glucose (UA) NEG Urine Ketones TRACE Urine Occult Blood NEG Urine Nitrite NEG Urine Bilirubin NEG Urine Urobilinogen NEG Urine Leukocyte Esterase NEG Urine RBC 0-4 /hpf Urine WBC 1-5 /hpf Urine Epithelial Cells 5-10 /lpf Urine Bacteria NEG White Blood Count 14.58 K/uL Red Blood Count 4.15 M/uL Hemoglobin 12.5 g/dL Hematocrit 40.4 % Mean Corpuscular Volume 97.3 fL Mean Corpuscular Hemoglobin 30.1 pg Mean Corpuscular Hemoglobin Concent 30.9 g/dl Platelet Count 274 K/uL Mean Platelet Volume 10.5 fL Neutrophils (%) (Auto) 77.4 % Lymphocytes (%) (Auto) 12.8 % Monocytes (%) (Auto) 8.0 % Eosinophils (%) (Auto) 1.1 % Basophils (%) (Auto) 0.2 % Neutrophils # (Auto) 11.28 K/uL Lymphocytes # (Auto) 1.86 K/uL Monocytes # (Auto) 1.17 K/uL Eosinophils # (Auto) 0.16 K/uL Basophils # (Auto) 0.03 K/uL RDW Standard Deviation 50.2 fL RDW Coefficient of Variation 14.2 % Immature Granulocyte % (Auto) 0.5 % Immature Granulocyte # (Auto) 0.08 K/uL Sodium Level 140 mmol/L Potassium Level 4.3 mmol/L Chloride Level 106 mmol/L Carbon Dioxide Level 28 mmol/L Anion Gap 6.0 mmol/L Blood Urea Nitrogen 11 mg/dl Creatinine 0.86 mg/dl Est Creatinine Clear Calc Drug Dose 82.9 ml/min Estimated GFR () 84.5 Estimated GFR (Non- 72.9 BUN/Creatinine Ratio 12.8 Random Glucose 151 mg/dl Calcium Level 8.3 mg/dl Magnesium Level 2.0 mg/dl Bedside Glucose 139 mg/dl Test 06/17/16 11:54 06/17/16 16:53 06/17/16 20:20 Bedside Glucose 144 mg/dl 124 mg/dl 120 mg/dl Assessment and Plan 60yo female with: 1. acute sigmoid diverticulitis, with diverticular abscess and fistulas - cont NPO status, IVF, broad-spectrum IV antibiotics. Appreciate gen surgery consultation. 2. chronic steroid usage for urticaria - has been on prednisone x 20 years. Will give stress dose steroids with hydrocortisone 25mg TID in light of #1. 3. chronic systolic/diastolic CHF - currently compensated, but will need to watch fluid status carefully. Hold lasix due to getting fluids. Resume CCB but due to low-normal BP will only give 120mg of cardizem. 4. T2DM - controlled; hold metformin. 5. recently dx metastatic breast ca - appreciate heme/onc consultation. Stable at this time. Incision on left chest wall is clean. 6. DVT proph - add lovenox 40mg daily. 7. FEN - cont NPO status, IVF, and repeat lytes in am. Continued [facility] stay due to: inadequate po fluid intake, multiple IV medications needed
[2016-06-18] VITALS (9 sets, daily range): BP systolic 98–144; BP diastolic 61–79; PULSE 85–103; TEMP 36.5–36.9; O2SAT 94–99
[2016-06-18] MEDS: VANCOMYCIN INJ 1,400 MG in SODIUM CHLORIDE 0.9% 500ML 500 ML IV SCH ×2 (00:54→12:46)
[2016-06-18] MEDS: PIPERACILL/TAZOBAC IV 4.5 GM in DEXTROSE 5% 100ML 100 ML IV SCH ×4 (00:54→21:59)
[2016-06-18] MEDS: NSS + 20MEQ KCL 1000ML 1,000 ML IV SCH (05:31)
[2016-06-18] MEDS: METRONIDAZOLE / NSS 500 MG in PREMIXED NSS 100 ML IV SCH (05:31)
[2016-06-18] MEDS: HYDROCORTISONE IV 25 MG in SYRINGE 0 ML IV SCH (05:31)
[2016-06-18 06:00] LABS: BASO % 0.2 %; BASO ABS # 0.03 K/uL (0-0.2); COMPLETE YES; EOS % 1.6 %; HEMATOCRIT 37.1 % (37-47); IG% 0.5 %; LYMPH % 15.7 %; LYMPH ABS # 2.19 K/uL (1.2-3.4); MEAN CELL VOLUME 98.7 fL (80-100); MEAN CORPUSCULAR HEMOGLOBIN 29.8 pg (25-34); MEAN CORPUSCULAR HGB CONC 30.2 g/dl (32-36); MEAN PLATELET VOLUME 10.3 fL (7.4-10.4); MONO % 5.3 %; NEUT % 76.7 %; PLATELET COUNT 262 K/uL (130-400); RED BLOOD COUNT 3.76 M/uL (4.2-5.4); WHITE BLOOD COUNT 13.96 K/uL (4.8-10.8)
[2016-06-18 06:48] LABS: BUN/CREATININE RATIO 14.1 (10-20); CALCIUM 8.2 mg/dl (8.5-10.1); CREATININE 0.69 mg/dl (0.60-1.20); POTASSIUM 5.6 mmol/L (3.5-5.1)
[2016-06-18] MEDS: INSULIN ASPART 100 UNITS/ML 3 ML PEN SC SCH ×4 (07:00→20:45)
[2016-06-18] MEDS ORDERED: NURSING VERBAL MED ORDER ONE (07:00)
[2016-06-18] MEDS: LORAZEPAM 2 MG/ML 1 ML VIAL IV PRN ×2 (07:07→21:58)
[2016-06-18] MEDS ORDERED: FUROSEMIDE INJ 40 MG in SYRINGE 0 ML IV ONE (07:30)
[2016-06-18] MEDS: DILTIAZEM HCL 120 MG CAPCR PO SCH (07:53)
[2016-06-18] MEDS: ENOXAPARIN 40 MG/0.4 ML SYR SQ SCH (07:54)
[2016-06-18] MEDS ORDERED: PAROXETINE 20 MG TAB PO ONE (10:30)
[2016-06-18] MEDS ORDERED: VANCOMYCIN TROUGH ONE (11:30)
[2016-06-18 12:22] LABS: BUN/CREATININE RATIO 10.9 (10-20); CALCIUM 7.8 mg/dl (8.5-10.1); CREATININE 0.83 mg/dl (0.60-1.20); POTASSIUM 3.7 mmol/L (3.5-5.1)
[2016-06-18] MEDS: PANTOprazole INJ 40 MG in SYRINGE 0 ML IV SCH (12:26)
[2016-06-18] MEDS ORDERED: FUROSEMIDE 40 MG TAB PO ONE (14:00)
--- NOTE | 2016-06-18 14:22 | Surgery Progress Note ---
Surgery Progress Note Date of Service June 18, 2016. Subjective feels somewhat better than yesterday... still with LLQ pain. no new symptoms Objective Vital Signs: Date Time Temp Pulse Resp B/P Pulse Ox O2 Delivery O2 Flow Rate FiO2 06/18/16 12:00 96 Nasal Cannula 2.0 06/18/16 11:14 36.5 96 20 98/69 99 Nasal Cannula 2.0 06/18/16 08:00 94 Nasal Cannula 2.0 06/18/16 07:42 36.9 91 20 104/63 95 Nasal Cannula 2.0 06/18/16 05:30 36.7 85 19 102/61 99 Nasal Cannula 2.5 06/18/16 04:00 Nasal Cannula 06/18/16 00:01 Nasal Cannula 06/17/16 22:04 37.1 89 22 103/56 94 Nasal Cannula 2.0 06/17/16 20:06 36.9 84 20 121/65 97 2.0 06/17/16 20:00 Nasal Cannula 06/17/16 16:00 95 Nasal Cannula 2.0 06/17/16 15:40 37.1 106 20 88/56 95 Nasal Cannula 2.0 06/17/16 15:40 37.1 106 20 88/56 95 Nasal Cannula 2.0 General Appearance: no apparent distress Head: atraumatic Neck: supple Respiratory/Chest: no respiratory distress, no accessory muscle use Abdomen: non distended, soft, + pertinent finding (+LLQ ttp. no g/r/r) Extremities: non-tender Laboratory Results: Results Past 24 Hours Test 06/17/16 16:53 06/17/16 20:20 06/18/16 05:43 06/18/16 06:47 Range/Units Bedside Glucose 124 120 111 70-90 mg/dl White Blood Count 13.96 4.8-10.8 K/uL Red Blood Count 3.76 4.2-5.4 M/uL Hemoglobin 11.2 12.0-16.0 g/dL Hematocrit 37.1 37-47 % Mean Corpuscular Volume 98.7 80-100 fL Mean Corpuscular Hemoglobin 29.8 25-34 pg Mean Corpuscular Hemoglobin Concent 30.2 32-36 g/dl Platelet Count 262 130-400 K/uL Mean Platelet Volume 10.3 7.4-10.4 fL Neutrophils (%) (Auto) 76.7 % Lymphocytes (%) (Auto) 15.7 % Monocytes (%) (Auto) 5.3 % Eosinophils (%) (Auto) 1.6 % Basophils (%) (Auto) 0.2 % Neutrophils # (Auto) 10.71 1.4-6.5 K/uL Lymphocytes # (Auto) 2.19 1.2-3.4 K/uL Monocytes # (Auto) 0.74 0.11-0.59 K/uL Eosinophils # (Auto) 0.22 0-0.5 K/uL Basophils # (Auto) 0.03 0-0.2 K/uL RDW Standard Deviation 49.9 36.4-46.3 fL RDW Coefficient of Variation 14.1 11.5-14.5 % Immature Granulocyte % (Auto) 0.5 % Immature Granulocyte # (Auto) 0.07 0.00-0.02 K/uL Sodium Level 142 136-145 mmol/L Potassium Level 5.6 3.5-5.1 mmol/L Chloride Level 110 98-107 mmol/L Carbon Dioxide Level 28 21-32 mmol/L Anion Gap 4.0 3-11 mmol/L Blood Urea Nitrogen 10 7-18 mg/dl Creatinine 0.69 0.60-1.20 mg/dl Est Creatinine Clear Calc Drug Dose 105.5 ml/min Estimated GFR () 108.9 Estimated GFR (Non- 94.0 BUN/Creatinine Ratio 14.1 10-20 Random Glucose 119 70-99 mg/dl Calcium Level 8.2 8.5-10.1 mg/dl Test 06/18/16 08:16 06/18/16 11:14 06/18/16 11:47 Range/Units Potassium Level 4.4 3.7 3.5-5.1 mmol/L Bedside Glucose 131 70-90 mg/dl Sodium Level 138 136-145 mmol/L Chloride Level 105 98-107 mmol/L Carbon Dioxide Level 24 21-32 mmol/L Anion Gap 9.0 3-11 mmol/L Blood Urea Nitrogen 9 7-18 mg/dl Creatinine 0.83 0.60-1.20 mg/dl Est Creatinine Clear Calc Drug Dose 87.7 ml/min Estimated GFR () 88.2 Estimated GFR (Non- 76.1 BUN/Creatinine Ratio 10.9 10-20 Random Glucose 163 70-99 mg/dl Calcium Level 7.8 8.5-10.1 mg/dl Vancomycin Level Trough 18.4 SEE COMMENT mcg/ml Assessment & Plan acute diverticulitis with possible fistulas and small abcess clinically improving wbc trending down no peritonitis cont iv antibiotics will reperform ct scan tomorrow to eval colon and abcess. ok for pt to have clears today
--- NOTE | 2016-06-18 15:15 | Pharmacy Progress Note ---
Pharmacy Abx Dose Short Note Date of Service June 18, 2016. Assessment & Plan Assessment * 60 year old female receiving VANCOMYCIN 1400mg (~13mg/kg) IV Q 10 hours and ZOSYN 4.5 gm (extended-infusion over 4 hrs) IV Q 8 hours for treatment of sigmoid divertiulitis w/ pericolonic abscess and possible fistulas b/w bladder and sm bowel. * Day # 3 of IV antimicrobial therapy. Flagyl d/c'd as double coverage of anaerobes not necessary as Zosyn has excellent anaerobic coverage (only ~0.5% bacteroides fragilis resistance noted in lit) * Renal fxn stable based upon labs, U.O. of 800cc reported yesterday, ~1300cc U.O. thus far today * No micro has been collect this admission; UA was not suggestive of UTI * Reported to be improving clinically, WBC trending down, afebrile Plan Vancomycin * Trough level of 18.4 mcg/mL is therapeutic. Prior doses hung at appropriate times. Level was drawn at an appropriate time. * There is potential for the level to climb with repeat dosing however, though we should be near steady-state based on calculated half-life. Will extend dosing interval slightly as a precaution. No evidence a trough of 15-20mcg required for this infection. A trough of 10-20mcg/mL might also be acceptable. * Change to 1400 mg IV every 12 hours * Trough or random level ordered for: 06/20/16 Zosyn * No change in dose required at this time as eCrCl > 20cc/min Pharmacy will continue to follow and will adjust dose/frequency as necessary. Thank you.
[2016-06-18] MEDS ORDERED: HYDROCORTISONE IV 25 MG in SYRINGE 0 ML IV SCH (16:00)
[2016-06-18] MEDS: MoRPHine SULFATE 2 MG/ML CARP IV PRN (21:57)
[2016-06-18] MEDS: ACETAMINOPHEN IV 100 ML IV PRN (21:58)
--- NOTE | 2016-06-18 23:04 | Progress Note ---
Subjective Date of Service: June 18, 2016. Subjective Pt evaluation today including: conversation w/ patient, conversation w/ family (sister), physical exam, chart review, lab review, review of inpatient medication list Pain: minimal LLQ pain PO Intake: just started on clears by gen surg Voiding: no voiding problems tele overnight with PVCs, bigeminy, trigeminy - but no v-tach fluids overnight stopped and lasix ordered patient reports feeling "a little stopped up" in her chest but denies severe dyspnea no nausea or emesis pain in abdomen much better today Problem List Medical Problems: (1) CHF exacerbation Status: Acute (2) Congestive heart failure Status: Acute (3) Diverticulitis of intestine with perforation and abscess Status: Acute (4) Elevated WBC count Status: Acute (5) Frequent PVCs Status: Acute Review of Systems Constitutional: No fever Cardiac: No PND, No chest pain, No orthopnea Abdomen: + see HPI, No diarrhea Objective Vital Signs Date Time Temp Pulse Resp B/P Pulse Ox O2 Delivery O2 Flow Rate FiO2 06/18/16 20:26 36.8 100 20 126/79 96 Nasal Cannula 2.0 06/18/16 20:00 Nasal Cannula 06/18/16 16:22 36.9 95 18 112/67 96 Nasal Cannula 2.0 06/18/16 16:00 94 Nasal Cannula 2.0 06/18/16 12:00 96 Nasal Cannula 2.0 06/18/16 11:14 36.5 96 20 98/69 99 Nasal Cannula 2.0 06/18/16 08:00 94 Nasal Cannula 2.0 06/18/16 07:42 36.9 91 20 104/63 95 Nasal Cannula 2.0 06/18/16 05:30 36.7 85 19 102/61 99 Nasal Cannula 2.5 06/18/16 04:00 Nasal Cannula 06/18/16 00:01 Nasal Cannula 06/17/16 22:04 37.1 89 22 103/56 94 Nasal Cannula 2.0 Physical Exam General Appearance: no apparent distress ENT: pharynx normal Neck: + JVD Respiratory/Chest: lungs clear, no respiratory distress, no accessory muscle use Cardiovascular: + pertinent finding (irregular, s1, s2, no murmur) Abdomen: normal bowel sounds, soft, no organomegaly, + tenderness (mild, LLQ) Extremities: + pedal edema (trace b/l) Neurologic/Psychiatric: alert, oriented x 3 Laboratory Results Last 24 Hours Test 06/18/16 05:43 06/18/16 06:47 06/18/16 08:16 06/18/16 11:14 White Blood Count 13.96 K/uL Red Blood Count 3.76 M/uL Hemoglobin 11.2 g/dL Hematocrit 37.1 % Mean Corpuscular Volume 98.7 fL Mean Corpuscular Hemoglobin 29.8 pg Mean Corpuscular Hemoglobin Concent 30.2 g/dl Platelet Count 262 K/uL Mean Platelet Volume 10.3 fL Neutrophils (%) (Auto) 76.7 % Lymphocytes (%) (Auto) 15.7 % Monocytes (%) (Auto) 5.3 % Eosinophils (%) (Auto) 1.6 % Basophils (%) (Auto) 0.2 % Neutrophils # (Auto) 10.71 K/uL Lymphocytes # (Auto) 2.19 K/uL Monocytes # (Auto) 0.74 K/uL Eosinophils # (Auto) 0.22 K/uL Basophils # (Auto) 0.03 K/uL RDW Standard Deviation 49.9 fL RDW Coefficient of Variation 14.1 % Immature Granulocyte % (Auto) 0.5 % Immature Granulocyte # (Auto) 0.07 K/uL Sodium Level 142 mmol/L Potassium Level 5.6 mmol/L 4.4 mmol/L Chloride Level 110 mmol/L Carbon Dioxide Level 28 mmol/L Anion Gap 4.0 mmol/L Blood Urea Nitrogen 10 mg/dl Creatinine 0.69 mg/dl Est Creatinine Clear Calc Drug Dose 105.5 ml/min Estimated GFR () 108.9 Estimated GFR (Non- 94.0 BUN/Creatinine Ratio 14.1 Random Glucose 119 mg/dl Calcium Level 8.2 mg/dl Bedside Glucose 111 mg/dl 131 mg/dl Test 06/18/16 11:47 06/18/16 16:31 06/18/16 20:36 Sodium Level 138 mmol/L Potassium Level 3.7 mmol/L Chloride Level 105 mmol/L Carbon Dioxide Level 24 mmol/L Anion Gap 9.0 mmol/L Blood Urea Nitrogen 9 mg/dl Creatinine 0.83 mg/dl Est Creatinine Clear Calc Drug Dose 87.7 ml/min Estimated GFR () 88.2 Estimated GFR (Non- 76.1 BUN/Creatinine Ratio 10.9 Random Glucose 163 mg/dl Calcium Level 7.8 mg/dl Vancomycin Level Trough 18.4 mcg/ml Bedside Glucose 119 mg/dl 130 mg/dl Assessment and Plan 60yo female with: 1. acute sigmoid diverticulitis, with diverticular abscess and fistulas - improved. Clear liquid diet started by gen surg. Stop flagyl. Cont zosyn. Can likely stop the vanco but leave for now. 2. chronic steroid usage for urticaria - has been on prednisone x 20 years. Cont stress dose steroids with hydrocortisone but cut to BID dosing today, then switch to PO prednisone in am. 3. chronic systolic/diastolic CHF - likely acutely decompensated due to copious hydration last few days. Stop fluids. has already received IV lasix this am. consider afternoon dose of lasix. then resume PO lasix 40mg daily in AM tomorrow. 4. T2DM - controlled; holding metformin. 5. recently dx metastatic breast ca - appreciate heme/onc consultation. Stable at this time. Incision on left chest wall is clean. 6. DVT proph - lovenox 40mg daily. 7. FEN - clear liquids, stop fluids, lytes in am. 8. anxiety - resume paxil. 9. PT, OT consults. 10. PVCs, bigeminy, trigeminy - see cardiology consultation from 2016. During that consult it was noted that she is quite prone to significant #'s of ectopy. Cont her AV elfego agents. 11. hyperkalemia - this was hemolysis. her K was repeated today and found to be normal. 12. HTN - her cardizem dose is typically 300mg, but thus far only using 120mg due to low-normal BPs. Her BPs have normalized. Will increase dose to 180mg in the am. sister updated at bedside leave on telemetry Continued [facility] stay due to: inadequate po fluid intake, multiple IV medications needed Discharge planning: uncertain
[2016-06-19] MEDS ORDERED: VANCOMYCIN INJ 1,400 MG in SODIUM CHLORIDE 0.9% 500ML 500 ML IV SCH ×2
[2016-06-19 05:00] VITALS: BP 109/61; PULSE 106; TEMP 36.8; O2SAT 99
[2016-06-19] MEDS: MoRPHine SULFATE 2 MG/ML CARP IV PRN (05:07)
[2016-06-19] MEDS: LORAZEPAM 2 MG/ML 1 ML VIAL IV PRN ×3 (05:08→21:38)
[2016-06-19 06:12] LABS: BASO % 0.2 %; BASO ABS # 0.03 K/uL (0-0.2); COMPLETE YES; HEMATOCRIT 38.7 % (37-47); IG% 0.5 %; LYMPH ABS # 1.54 K/uL (1.2-3.4); MEAN CELL VOLUME 96.3 fL (80-100); MEAN CORPUSCULAR HEMOGLOBIN 30.3 pg (25-34); MEAN CORPUSCULAR HGB CONC 31.5 g/dl (32-36); MEAN PLATELET VOLUME 10.1 fL (7.4-10.4); MONO % 9.1 %; NEUT % 77.2 %; PLATELET COUNT 282 K/uL (130-400); RED BLOOD COUNT 4.02 M/uL (4.2-5.4); WHITE BLOOD COUNT 14.03 K/uL (4.8-10.8)
[2016-06-19 06:43] LABS: BUN/CREATININE RATIO 9.3 (10-20); CALCIUM 7.8 mg/dl (8.5-10.1); CREATININE 1.2 mg/dl (0.60-1.20); MAGNESIUM 1.9 mg/dl (1.8-2.4); POTASSIUM 3.5 mmol/L (3.5-5.1)
--- NOTE | 2016-06-19 07:35 | Progress Note ---
Subjective Date of Service: June 19, 2016. Subjective pt looks better, CT is worrisome as lack of improvement of mid sigmoid fluid and gas collection. pts pain is improved and despite some increase in pleural effusions is not short of breath Problem List Medical Problems: (1) CHF exacerbation Status: Acute (2) Congestive heart failure Status: Acute (3) Diverticulitis of intestine with perforation and abscess Status: Acute (4) Elevated WBC count Status: Acute (5) Frequent PVCs Status: Acute Review of Systems Constitutional: No chills, No fever, No weakness Respiratory: + dyspnea on exertion, No cough, No shortness of breath Cardiac: No chest pain, No edema Abdomen: + pain, No nausea, No vomiting Musculoskeletal: No joint pain, No muscle pain Psychiatric: + anxiety, No anhedonism, No depression symptoms Objective Vital Signs Date Time Temp Pulse Resp B/P Pulse Ox O2 Delivery O2 Flow Rate FiO2 06/19/16 05:00 36.8 106 18 109/61 99 Nasal Cannula 2.0 06/19/16 04:00 Nasal Cannula 06/19/16 00:01 Nasal Cannula 06/18/16 23:41 36.7 103 22 144/76 95 Nasal Cannula 06/18/16 20:26 36.8 100 20 126/79 96 Nasal Cannula 2.0 06/18/16 20:00 Nasal Cannula 06/18/16 16:22 36.9 95 18 112/67 96 Nasal Cannula 2.0 06/18/16 16:00 94 Nasal Cannula 2.0 06/18/16 12:00 96 Nasal Cannula 2.0 06/18/16 11:14 36.5 96 20 98/69 99 Nasal Cannula 2.0 06/18/16 08:00 94 Nasal Cannula 2.0 06/18/16 07:42 36.9 91 20 104/63 95 Nasal Cannula 2.0 Physical Exam General Appearance: WD/WN, + mild distress Neck: supple, no JVD Respiratory/Chest: chest non-tender, lungs clear, normal breath sounds Cardiovascular: regular rate, rhythm, no murmur Abdomen: soft, + abnormal bowel sounds, + tenderness Extremities: no pedal edema, no calf tenderness Neurologic/Psychiatric: alert, oriented x 3 Laboratory Results Last 24 Hours Test 06/18/16 08:16 06/18/16 11:14 06/18/16 11:47 06/18/16 16:31 Potassium Level 4.4 mmol/L 3.7 mmol/L Bedside Glucose 131 mg/dl 119 mg/dl Sodium Level 138 mmol/L Chloride Level 105 mmol/L Carbon Dioxide Level 24 mmol/L Anion Gap 9.0 mmol/L Blood Urea Nitrogen 9 mg/dl Creatinine 0.83 mg/dl Est Creatinine Clear Calc Drug Dose 87.7 ml/min Estimated GFR () 88.2 Estimated GFR (Non- 76.1 BUN/Creatinine Ratio 10.9 Random Glucose 163 mg/dl Calcium Level 7.8 mg/dl Vancomycin Level Trough 18.4 mcg/ml Test 06/18/16 20:36 06/19/16 05:57 06/19/16 06:42 Bedside Glucose 130 mg/dl 118 mg/dl White Blood Count 14.03 K/uL Red Blood Count 4.02 M/uL Hemoglobin 12.2 g/dL Hematocrit 38.7 % Mean Corpuscular Volume 96.3 fL Mean Corpuscular Hemoglobin 30.3 pg Mean Corpuscular Hemoglobin Concent 31.5 g/dl Platelet Count 282 K/uL Mean Platelet Volume 10.1 fL Neutrophils (%) (Auto) 77.2 % Lymphocytes (%) (Auto) 11.0 % Monocytes (%) (Auto) 9.1 % Eosinophils (%) (Auto) 2.0 % Basophils (%) (Auto) 0.2 % Neutrophils # (Auto) 10.84 K/uL Lymphocytes # (Auto) 1.54 K/uL Monocytes # (Auto) 1.27 K/uL Eosinophils # (Auto) 0.28 K/uL Basophils # (Auto) 0.03 K/uL RDW Standard Deviation 48.6 fL RDW Coefficient of Variation 13.7 % Immature Granulocyte % (Auto) 0.5 % Immature Granulocyte # (Auto) 0.07 K/uL Sodium Level 139 mmol/L Potassium Level 3.5 mmol/L Chloride Level 108 mmol/L Carbon Dioxide Level 23 mmol/L Anion Gap 8.0 mmol/L Blood Urea Nitrogen 11 mg/dl Creatinine 1.20 mg/dl Est Creatinine Clear Calc Drug Dose 60.8 ml/min Estimated GFR () 56.5 Estimated GFR (Non- 48.7 BUN/Creatinine Ratio 9.3 Random Glucose 130 mg/dl Calcium Level 7.8 mg/dl Magnesium Level 1.9 mg/dl Assessment and Plan 60 F with acute sigmoid diverticulitis, and 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 Repeat CT does show presistent fluid gas filtration Adrenal suppression from chronic steroid usage for urticaria - hydrocortisone used and switch to PO prednisone. Chronic systolic/diastolic CHF daily volume status assessment, resume PO lasix 40mg daily. T2DM - controlled; basal bolus, holding metformin. recently dx recurrent breast ca/metastatic - appreciate heme/onc consultation. Incision on left chest wall is clean. DVT proph - lovenox 40mg daily. Depression. anxiety - resume paxil. HTN - her cardizem dose is 180mg which is lower than her usual 300 due to BP Continued [facility] stay due to: inadequate po fluid intake, multiple IV medications needed Discharge planning: uncertain
[2016-06-19 07:55] VITALS: BP 114/57; PULSE 104; TEMP 36.9; O2SAT 99
--- NOTE | 2016-06-19 08:32 | Surgery Progress Note ---
Surgery Progress Note Date of Service June 19, 2016. Subjective adm with diverticulitis recent Lt chest wall mass excision- c/w breast cancer, h/o Bilateral mastectomy Objective Vital Signs: Date Time Temp Pulse Resp B/P Pulse Ox O2 Delivery O2 Flow Rate FiO2 06/19/16 07:55 36.9 104 20 114/57 99 Nasal Cannula 1.0 06/19/16 05:00 36.8 106 18 109/61 99 Nasal Cannula 2.0 06/19/16 04:00 Nasal Cannula 06/19/16 00:01 Nasal Cannula 06/18/16 23:41 36.7 103 22 144/76 95 Nasal Cannula 06/18/16 20:26 36.8 100 20 126/79 96 Nasal Cannula 2.0 06/18/16 20:00 Nasal Cannula 06/18/16 16:22 36.9 95 18 112/67 96 Nasal Cannula 2.0 06/18/16 16:00 94 Nasal Cannula 2.0 06/18/16 12:00 96 Nasal Cannula 2.0 06/18/16 11:14 36.5 96 20 98/69 99 Nasal Cannula 2.0 Incision(s): intact (rotational flap looks very good) Laboratory Results: Results Past 24 Hours Test 06/18/16 11:14 06/18/16 11:47 06/18/16 16:31 06/18/16 20:36 Range/Units Bedside Glucose 131 119 130 70-90 mg/dl Sodium Level 138 136-145 mmol/L Potassium Level 3.7 3.5-5.1 mmol/L Chloride Level 105 98-107 mmol/L Carbon Dioxide Level 24 21-32 mmol/L Anion Gap 9.0 3-11 mmol/L Blood Urea Nitrogen 9 7-18 mg/dl Creatinine 0.83 0.60-1.20 mg/dl Est Creatinine Clear Calc Drug Dose 87.7 ml/min Estimated GFR () 88.2 Estimated GFR (Non- 76.1 BUN/Creatinine Ratio 10.9 10-20 Random Glucose 163 70-99 mg/dl Calcium Level 7.8 8.5-10.1 mg/dl Vancomycin Level Trough 18.4 SEE COMMENT mcg/ml Test 06/19/16 05:57 06/19/16 06:42 Range/Units White Blood Count 14.03 4.8-10.8 K/uL Red Blood Count 4.02 4.2-5.4 M/uL Hemoglobin 12.2 12.0-16.0 g/dL Hematocrit 38.7 37-47 % Mean Corpuscular Volume 96.3 80-100 fL Mean Corpuscular Hemoglobin 30.3 25-34 pg Mean Corpuscular Hemoglobin Concent 31.5 32-36 g/dl Platelet Count 282 130-400 K/uL Mean Platelet Volume 10.1 7.4-10.4 fL Neutrophils (%) (Auto) 77.2 % Lymphocytes (%) (Auto) 11.0 % Monocytes (%) (Auto) 9.1 % Eosinophils (%) (Auto) 2.0 % Basophils (%) (Auto) 0.2 % Neutrophils # (Auto) 10.84 1.4-6.5 K/uL Lymphocytes # (Auto) 1.54 1.2-3.4 K/uL Monocytes # (Auto) 1.27 0.11-0.59 K/uL Eosinophils # (Auto) 0.28 0-0.5 K/uL Basophils # (Auto) 0.03 0-0.2 K/uL RDW Standard Deviation 48.6 36.4-46.3 fL RDW Coefficient of Variation 13.7 11.5-14.5 % Immature Granulocyte % (Auto) 0.5 % Immature Granulocyte # (Auto) 0.07 0.00-0.02 K/uL Sodium Level 139 136-145 mmol/L Potassium Level 3.5 3.5-5.1 mmol/L Chloride Level 108 98-107 mmol/L Carbon Dioxide Level 23 21-32 mmol/L Anion Gap 8.0 3-11 mmol/L Blood Urea Nitrogen 11 7-18 mg/dl Creatinine 1.20 0.60-1.20 mg/dl Est Creatinine Clear Calc Drug Dose 60.8 ml/min Estimated GFR () 56.5 Estimated GFR (Non- 48.7 BUN/Creatinine Ratio 9.3 10-20 Random Glucose 130 70-99 mg/dl Calcium Level 7.8 8.5-10.1 mg/dl Magnesium Level 1.9 1.8-2.4 mg/dl Bedside Glucose 118 70-90 mg/dl Assessment & Plan 06/19/16- Currently on IV atbx for diverticulitis- for CT with contrast today. h/o recent surgery for excision of Lt chest wall mass- recurrent breast cancer likely bony involvement of at least sternum- Dr Holland saw pt- probable chemo. Will need port at some point- ?1-2 weeks. Will need radiation onc eval also. Dr Levine performed rotational flap closure of chest wound- to see pt next Sunday
[2016-06-19] MEDS ORDERED: DILTIAZEM HCL 180 MG CAPCR PO SCH (09:00)
[2016-06-19] MEDS: INSULIN ASPART 100 UNITS/ML 3 ML PEN SC SCH ×4 (09:31→20:01)
[2016-06-19] MEDS: FUROSEMIDE 40 MG TAB PO SCH (09:50)
[2016-06-19] MEDS: PAROXETINE 20 MG TAB PO SCH (09:50)
[2016-06-19] MEDS: POTASSIUM CHLORIDE 20 MEQ TABCR PO SCH (09:51)
[2016-06-19] MEDS: ENOXAPARIN 40 MG/0.4 ML SYR SQ SCH (09:53)
[2016-06-19] MEDS: PIPERACILL/TAZOBAC IV 4.5 GM in DEXTROSE 5% 100ML 100 ML IV SCH ×3 (09:53→21:37)
--- NOTE | 2016-06-19 10:29 | Surgery Progress Note ---
Surgery Progress Note Date of Service June 19, 2016. Subjective pt continues to slowly improve. still some discomfort in LLQ. cristi clears. Objective Vital Signs: Date Time Temp Pulse Resp B/P Pulse Ox O2 Delivery O2 Flow Rate FiO2 06/19/16 07:55 36.9 104 20 114/57 99 Nasal Cannula 1.0 06/19/16 05:00 36.8 106 18 109/61 99 Nasal Cannula 2.0 06/19/16 04:00 Nasal Cannula 06/19/16 00:01 Nasal Cannula 06/18/16 23:41 36.7 103 22 144/76 95 Nasal Cannula 06/18/16 20:26 36.8 100 20 126/79 96 Nasal Cannula 2.0 06/18/16 20:00 Nasal Cannula 06/18/16 16:22 36.9 95 18 112/67 96 Nasal Cannula 2.0 06/18/16 16:00 94 Nasal Cannula 2.0 06/18/16 12:00 96 Nasal Cannula 2.0 06/18/16 11:14 36.5 96 20 98/69 99 Nasal Cannula 2.0 General Appearance: no apparent distress Head: normocephalic, atraumatic Neck: supple Respiratory/Chest: no respiratory distress, no accessory muscle use Abdomen: non distended, soft, + pertinent finding (LLQ ttp. no peritoneal signs ) Extremities: no pedal edema Laboratory Results: Results Past 24 Hours Test 06/18/16 11:14 06/18/16 11:47 06/18/16 16:31 06/18/16 20:36 Range/Units Bedside Glucose 131 119 130 70-90 mg/dl Sodium Level 138 136-145 mmol/L Potassium Level 3.7 3.5-5.1 mmol/L Chloride Level 105 98-107 mmol/L Carbon Dioxide Level 24 21-32 mmol/L Anion Gap 9.0 3-11 mmol/L Blood Urea Nitrogen 9 7-18 mg/dl Creatinine 0.83 0.60-1.20 mg/dl Est Creatinine Clear Calc Drug Dose 87.7 ml/min Estimated GFR () 88.2 Estimated GFR (Non- 76.1 BUN/Creatinine Ratio 10.9 10-20 Random Glucose 163 70-99 mg/dl Calcium Level 7.8 8.5-10.1 mg/dl Vancomycin Level Trough 18.4 SEE COMMENT mcg/ml Test 06/19/16 05:57 06/19/16 06:42 Range/Units White Blood Count 14.03 4.8-10.8 K/uL Red Blood Count 4.02 4.2-5.4 M/uL Hemoglobin 12.2 12.0-16.0 g/dL Hematocrit 38.7 37-47 % Mean Corpuscular Volume 96.3 80-100 fL Mean Corpuscular Hemoglobin 30.3 25-34 pg Mean Corpuscular Hemoglobin Concent 31.5 32-36 g/dl Platelet Count 282 130-400 K/uL Mean Platelet Volume 10.1 7.4-10.4 fL Neutrophils (%) (Auto) 77.2 % Lymphocytes (%) (Auto) 11.0 % Monocytes (%) (Auto) 9.1 % Eosinophils (%) (Auto) 2.0 % Basophils (%) (Auto) 0.2 % Neutrophils # (Auto) 10.84 1.4-6.5 K/uL Lymphocytes # (Auto) 1.54 1.2-3.4 K/uL Monocytes # (Auto) 1.27 0.11-0.59 K/uL Eosinophils # (Auto) 0.28 0-0.5 K/uL Basophils # (Auto) 0.03 0-0.2 K/uL RDW Standard Deviation 48.6 36.4-46.3 fL RDW Coefficient of Variation 13.7 11.5-14.5 % Immature Granulocyte % (Auto) 0.5 % Immature Granulocyte # (Auto) 0.07 0.00-0.02 K/uL Sodium Level 139 136-145 mmol/L Potassium Level 3.5 3.5-5.1 mmol/L Chloride Level 108 98-107 mmol/L Carbon Dioxide Level 23 21-32 mmol/L Anion Gap 8.0 3-11 mmol/L Blood Urea Nitrogen 11 7-18 mg/dl Creatinine 1.20 0.60-1.20 mg/dl Est Creatinine Clear Calc Drug Dose 60.8 ml/min Estimated GFR () 56.5 Estimated GFR (Non- 48.7 BUN/Creatinine Ratio 9.3 10-20 Random Glucose 130 70-99 mg/dl Calcium Level 7.8 8.5-10.1 mg/dl Magnesium Level 1.9 1.8-2.4 mg/dl Bedside Glucose 118 70-90 mg/dl Assessment & Plan 06/19/16 wbc still [id number] scan today clinically doing ok. stay on clears for now. no acute changes. 06/18/16 acute diverticulitis with possible fistulas and small abcess clinically improving wbc trending down no peritonitis cont iv antibiotics will reperform ct scan tomorrow to eval colon and abcess. ok for pt to have clears today acute diverticulitis with possible fistulas and small abcess clinically improving wbc trending down no peritonitis cont iv antibiotics will reperform ct scan tomorrow to eval colon and abcess. ok for pt to have clears today
[2016-06-19 11:47] VITALS: BP 119/84; PULSE 105; TEMP 36.4; O2SAT 97
--- NOTE | 2016-06-19 13:27 | DIAGNOSTIC IMAGING REPORT ---
ABDOMEN AND PELVIS CT WITH IV AND ORAL CONTRAST CT DOSE: 1213.27 mGy.cm HISTORY: Follow-up diverticulitis TECHNIQUE: Multiaxial CT images of the abdomen and pelvis were performed following the use of intravenous and oral contrast. COMPARISON STUDY: Abdomen and pelvis CT 06/16/2016. FINDINGS: Small bilateral pleural effusions have increased in size. Mild interlobular septal thickening has slightly improved. Bibasilar linear densities consistent with subsegmental atelectasis. Stable sclerotic lesions within the right sacrum and left femoral head. Hepatic steatosis. Mild body wall edema. The spleen, adrenal glands, pancreas, and kidneys are unremarkable. There are few tiny stones within the gallbladder. No significant retroperitoneal lymphadenopathy. Calcified plaque within the abdominal aorta and iliac arteries. Hysterectomy. Slight improvement within the inflammatory change involving the proximal and mid sigmoid colon diverticulitis. The small pericolonic abscess adjacent to the proximal sigmoid is not significant changed. This measures 3.1 x 1.8 cm. Small extraluminal gas collection along the right side of the mid sigmoid colon with associated developing fistulas to the adjacent small bowel and bladder dome is also not significantly changed. Mild thickening of the bladder dome. No gas or contrast within the bladder lumen at this time. Normal appendix. No evidence for bowel obstruction. A few prominent left pelvic sidewall lymph nodes remain unchanged. IMPRESSION: 1. Slight improvement in the inflammatory change involving the proximal and mid sigmoid colon diverticulitis. However, the small pericolonic abscess adjacent to the proximal sigmoid colon and small extraluminal gas collection with associated developing fistulas at the mid sigmoid colon are not significantly changed. 2. Slight improvement in the pulmonary edema. However, the small bilateral pleural effusions have increased in size. 3. Cholelithiasis. Electronically signed by: Sebastien Lovett M.D. 06/19/2016 1:26 PM Dictated Date/Time: 06/19/2016 1:00 PM
[2016-06-19 15:42] VITALS: BP 106/93; PULSE 96; TEMP 37; O2SAT 95
[2016-06-19 16:00] VITALS: O2SAT 96
[2016-06-19 19:59] VITALS: BP 99/50; PULSE 89; TEMP 36.5; O2SAT 97
[2016-06-20 00:01] VITALS: BP 113/64; PULSE 94; TEMP 36.6; O2SAT 96
[2016-06-20] MEDS: PIPERACILL/TAZOBAC IV 4.5 GM in DEXTROSE 5% 100ML 100 ML IV SCH ×4 (04:50→20:26)
[2016-06-20 05:30] VITALS: BP 104/67; PULSE 99; TEMP 36.7; O2SAT 100
[2016-06-20] MEDS: INSULIN ASPART 100 UNITS/ML 3 ML PEN SC SCH ×4 (07:00→20:30)
[2016-06-20 07:50] VITALS: BP 106/83; PULSE 100; TEMP 36.5; O2SAT 99
[2016-06-20] MEDS: FUROSEMIDE 40 MG TAB PO SCH (08:43)
[2016-06-20] MEDS: DILTIAZEM HCL 300 MG CAPCR PO SCH (08:43)
[2016-06-20] MEDS: POTASSIUM CHLORIDE 20 MEQ TABCR PO SCH (08:44)
[2016-06-20] MEDS: PAROXETINE 20 MG TAB PO SCH (08:44)
[2016-06-20] MEDS: ENOXAPARIN 40 MG/0.4 ML SYR SQ SCH (08:47)
[2016-06-20 11:00] VITALS: BP 126/86; PULSE 111; TEMP 36.5; O2SAT 95
[2016-06-20] MEDS ORDERED: VANCOMYCIN TROUGH ONE (11:30)
--- NOTE | 2016-06-20 13:02 | Surgery Progress Note ---
Surgery Progress Note Date of Service June 20, 2016. Subjective pt seen...she is actually feeling quite well. states her pain is essentially gone. she is somewhat hungry. Objective Vital Signs: Date Time Temp Pulse Resp B/P Pulse Ox O2 Delivery O2 Flow Rate FiO2 06/20/16 11:00 36.5 111 20 126/86 95 Nasal Cannula 2.0 06/20/16 08:00 Nasal Cannula 2.0 06/20/16 07:50 36.5 100 20 106/83 99 Nasal Cannula 2.0 06/20/16 05:30 36.7 99 19 104/67 100 Nasal Cannula 2.0 06/20/16 04:00 Nasal Cannula 06/20/16 00:01 36.6 94 22 113/64 96 Nasal Cannula 06/20/16 00:01 Nasal Cannula 06/19/16 20:00 Nasal Cannula 06/19/16 19:59 36.5 89 20 99/50 97 Nasal Cannula 2.0 06/19/16 16:00 96 Nasal Cannula 2.0 06/19/16 15:42 37.0 96 22 106/93 95 Nasal Cannula 2.0 General Appearance: no apparent distress Head: normocephalic Respiratory/Chest: no respiratory distress, no accessory muscle use Abdomen: non distended, soft, + pertinent finding (mild LLQ ttp. ) Laboratory Results: Results Past 24 Hours Test 06/19/16 17:20 06/19/16 20:01 06/20/16 07:13 06/20/16 11:17 Range/Units Bedside Glucose 186 137 123 150 70-90 mg/dl Microbiology Results 06/20/16 C.difficile Toxin B Gene (PCR), Received Pending Assessment & Plan 06/20/[address] with slight improvement. abcess not worse will recheck wbc tomorrow can have some full liquids since pain resolved. +bm...loose. pt requesting c.diff sample so will order. 06/19/16 wbc still [id number]. will [address] scan today clinically doing ok. stay on clears for now. no acute changes. 06/18/16 acute diverticulitis with possible fistulas and small abcess clinically improving wbc trending down no peritonitis cont iv antibiotics will reperform ct scan tomorrow to eval colon and abcess. ok for pt to have clears today 06/19/16 wbc still [id number] scan today clinically doing ok. stay on clears for now. no acute changes. 06/18/16 acute diverticulitis with possible fistulas and small abcess clinically improving wbc trending down no peritonitis cont iv antibiotics will reperform ct scan tomorrow to eval colon and abcess. ok for pt to have clears today
[2016-06-20 15:43] VITALS: BP 107/73; PULSE 89; O2SAT 96
--- NOTE | 2016-06-20 16:08 | Progress Note ---
Subjective Date of Service: June 20, 2016. Subjective pt continues to improve, CT abd/pelvis shows no progression and surgery is pleased that clinically she looks and feels better Problem List Medical Problems: (1) CHF exacerbation Status: Acute (2) Congestive heart failure Status: Acute (3) Diverticulitis of intestine with perforation and abscess Status: Acute (4) Elevated WBC count Status: Acute (5) Frequent PVCs Status: Acute Review of Systems Constitutional: No chills, No fever Respiratory: No cough, No shortness of breath, No wheezing Cardiac: No chest pain, No edema Abdomen: + diarrhea, + pain, No constipation, No nausea, No vomiting Female : No dysuria, No urinary frequency Objective Vital Signs Date Time Temp Pulse Resp B/P Pulse Ox O2 Delivery O2 Flow Rate FiO2 06/20/16 15:43 89 18 107/73 96 06/20/16 12:00 Nasal Cannula 2.0 06/20/16 11:00 36.5 111 20 126/86 95 Nasal Cannula 2.0 06/20/16 08:00 Nasal Cannula 2.0 06/20/16 07:50 36.5 100 20 106/83 99 Nasal Cannula 2.0 06/20/16 05:30 36.7 99 19 104/67 100 Nasal Cannula 2.0 06/20/16 04:00 Nasal Cannula 06/20/16 00:01 36.6 94 22 113/64 96 Nasal Cannula 06/20/16 00:01 Nasal Cannula 06/19/16 20:00 Nasal Cannula 06/19/16 19:59 36.5 89 20 99/50 97 Nasal Cannula 2.0 Physical Exam General Appearance: WD/WN, + mild distress Neck: supple, no JVD Respiratory/Chest: chest non-tender, lungs clear, normal breath sounds Cardiovascular: regular rate, rhythm, no murmur Abdomen: normal bowel sounds, soft, + tenderness Neurologic/Psychiatric: alert, oriented x 3 Laboratory Results Last 24 Hours Test 06/19/16 17:20 06/19/16 20:01 06/20/16 07:13 06/20/16 11:17 Bedside Glucose 186 mg/dl 137 mg/dl 123 mg/dl 150 mg/dl Assessment and Plan 60 F with acute sigmoid diverticulitis, and 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 Adrenal suppression from chronic steroid usage for urticaria - hydrocortisone used and switch to PO prednisone. Chronic systolic/diastolic CHF stable, resume PO lasix 40mg daily. T2DM - controlled; basal bolus, holding metformin. until after 72 hours from iv contrast recently dx recurrent breast ca/metastatic - appreciate heme/onc consultation. Incision on left chest wall is clean. DVT proph - lovenox 40mg daily. Depression. anxiety - resume paxil. HTN - Cardizem 300 Continued [facility] stay due to: inadequate po fluid intake, multiple IV medications needed Discharge planning: uncertain
[2016-06-20] MEDS: LORAZEPAM 2 MG/ML 1 ML VIAL IV PRN (20:27)
[2016-06-21 00:10] VITALS: BP 111/67; PULSE 93; TEMP 36.5; O2SAT 95
[2016-06-21] MEDS: LORAZEPAM 2 MG/ML 1 ML VIAL IV PRN (03:45)
[2016-06-21] MEDS: MoRPHine SULFATE 2 MG/ML CARP IV PRN (03:46)
[2016-06-21] MEDS: PIPERACILL/TAZOBAC IV 4.5 GM in DEXTROSE 5% 100ML 100 ML IV SCH (03:46)
[2016-06-21 04:00] VITALS: BP 129/69; PULSE 95; O2SAT 93
[2016-06-21 07:20] VITALS: BP 119/94; PULSE 91; TEMP 36.9; O2SAT 95
[2016-06-21] MEDS ORDERED: AMOX875T PO (07:33)
[2016-06-21] MEDS ORDERED: HYDR-5688 PO (07:33)
--- NOTE | 2016-06-21 07:34 | Discharge Instructions ---
Discharge Instructions Date of Service June 21, 2016. Admission Reason for Admission: Acute Diverticulitis, Colonic Diverticular Abscess Discharge Discharge Diagnosis / Problem: DIVERTICULITIS Discharge Goals Goal(s): Diagnostic testing, Therapeutic intervention Activity Recommendations Activity Limitations: resume your previous activity . Current Hospital Diet Patient's current hospital diet: Diabetes Type 2 Diet, AHA Diet (Heart Healthy) Discharge Diet Recommended Diet: Regular Diet Pending Studies Studies pending at discharge: no Medical Emergencies . Who to Call and When: Medical Emergencies: If at any time you feel your situation is an emergency, please call 911 immediately. . Non-Emergent Contact Non-Emergency issues call your: Primary Care Provider, Surgeon Call Non-Emergent contact if: temperature is above 101, your pain is unusual for you . . "Provider Documentation" section prepared by Deny Michelle. . VTE Core Measure Inpt VTE Proph given/why not?: Unfractionated heparin SQ, SCD's
[2016-06-21 07:37] LABS: HEMATOCRIT 40.2 % (37-47); MEAN CELL VOLUME 94.4 fL (80-100); MEAN CORPUSCULAR HEMOGLOBIN 29.8 pg (25-34); MEAN CORPUSCULAR HGB CONC 31.6 g/dl (32-36); MEAN PLATELET VOLUME 10.4 fL (7.4-10.4); PLATELET COUNT 380 K/uL (130-400); RED BLOOD COUNT 4.26 M/uL (4.2-5.4); WHITE BLOOD COUNT 13.82 K/uL (4.8-10.8)
[2016-06-21 07:57] LABS: BUN/CREATININE RATIO 9.4 (10-20); CALCIUM 8.8 mg/dl (8.5-10.1); CREATININE 1.3 mg/dl (0.60-1.20); POTASSIUM 3.4 mmol/L (3.5-5.1)
[2016-06-21] MEDS: FUROSEMIDE 40 MG TAB PO SCH (07:58)
[2016-06-21] MEDS: POTASSIUM CHLORIDE 20 MEQ TABCR PO SCH (07:58)
[2016-06-21] MEDS: DILTIAZEM HCL 300 MG CAPCR PO SCH (07:58)
[2016-06-21] MEDS: ENOXAPARIN 40 MG/0.4 ML SYR SQ SCH (07:59)
[2016-06-21] MEDS: PAROXETINE 20 MG TAB PO SCH (07:59)
[2016-06-21] MEDS: INSULIN ASPART 100 UNITS/ML 3 ML PEN SC SCH (08:02)
--- NOTE | 2016-06-21 08:54 | Surgery Progress Note ---
Surgery Progress Note Date of Service June 21, 2016. Subjective + feeling well pt feeling well. cristi diet. no pain. Objective Vital Signs: Date Time Temp Pulse Resp B/P Pulse Ox O2 Delivery O2 Flow Rate FiO2 06/21/16 07:20 36.9 91 18 119/94 95 Room Air 06/21/16 04:00 Room Air 06/21/16 04:00 95 20 129/69 93 Room Air 06/21/16 00:10 36.5 93 19 111/67 95 Room Air 06/21/16 00:01 Room Air 06/20/16 20:00 Room Air 06/20/16 16:35 Nasal Cannula 2.0 06/20/16 15:43 89 18 107/73 96 06/20/16 12:00 Nasal Cannula 2.0 06/20/16 11:00 36.5 111 20 126/86 95 Nasal Cannula 2.0 General Appearance: no apparent distress Respiratory/Chest: no respiratory distress, no accessory muscle use Abdomen: non distended, soft, + pertinent finding (minimal LLQ ttp. ) Laboratory Results: Results Past 24 Hours Test 06/20/16 11:17 06/20/16 16:17 06/20/16 20:21 06/21/16 05:56 Range/Units Bedside Glucose 150 171 184 70-90 mg/dl White Blood Count 13.82 4.8-10.8 K/uL Red Blood Count 4.26 4.2-5.4 M/uL Hemoglobin 12.7 12.0-16.0 g/dL Hematocrit 40.2 37-47 % Mean Corpuscular Volume 94.4 80-100 fL Mean Corpuscular Hemoglobin 29.8 25-34 pg Mean Corpuscular Hemoglobin Concent 31.6 32-36 g/dl RDW Standard Deviation 47.3 36.4-46.3 fL RDW Coefficient of Variation 13.9 11.5-14.5 % Platelet Count 380 130-400 K/uL Mean Platelet Volume 10.4 7.4-10.4 fL Sodium Level 143 136-145 mmol/L Potassium Level 3.4 3.5-5.1 mmol/L Chloride Level 108 98-107 mmol/L Carbon Dioxide Level 25 21-32 mmol/L Anion Gap 10.0 3-11 mmol/L Blood Urea Nitrogen 12 7-18 mg/dl Creatinine 1.30 0.60-1.20 mg/dl Est Creatinine Clear Calc Drug Dose 55.7 ml/min Estimated GFR () 51.3 Estimated GFR (Non- 44.2 BUN/Creatinine Ratio 9.4 10-20 Random Glucose 103 70-99 mg/dl Calcium Level 8.8 8.5-10.1 mg/dl Test 06/21/16 06:37 Range/Units Bedside Glucose 107 70-90 mg/dl Microbiology Results 06/20/16 C.difficile Toxin B Gene (PCR) - Final, Complete No C. difficile toxin B gene detected Assessment & Plan 06/21/16 pt doing well ok for d/c from my standpoint discussed diet will need to repeat ct in 2 weeks or so 06/20/[address] with slight improvement. abcess not worse will recheck wbc tomorrow can have some full liquids since pain resolved. +bm...loose. pt requesting c.diff sample so will order. 06/19/16 wbc still [id number]. will repeat [address] scan today clinically doing ok. stay on clears for now. no acute changes. 06/18/16 acute diverticulitis with possible fistulas and small abcess clinically improving wbc trending down no peritonitis cont iv antibiotics will reperform ct scan tomorrow to eval colon and abcess. ok for pt to have clears today 06/20/[address] with slight improvement. abcess not worse will recheck wbc tomorrow can have some full liquids since pain resolved. +bm...loose. pt requesting c.diff sample so will order. 06/19/16 wbc still [id number]. will repeat [address] scan today clinically doing ok. stay on clears for now. no acute changes. 06/18/16 acute diverticulitis with possible fistulas and small abcess clinically improving wbc trending down no peritonitis cont iv antibiotics will reperform ct scan tomorrow to eval colon and abcess. ok for pt to have clears today
[2016-06-21 09:20] VITALS: BP 119/94; PULSE 91; TEMP 36.9; O2SAT 95
[2016-06-21] MEDS ORDERED: ATV/1 PO (09:26)
[2016-06-21] MEDS ORDERED: PXL20 PO (12:53)
[2016-06-21] MEDS ORDERED: FLUC100T4 PO (16:48)
--- NOTE | 2016-06-21 16:51 | Discharge Summary ---
Discharge Summary Date of Service June 21, 2016. Discharge Summary Admission Date: June 16, 2016 at 19:50 Discharge Date: June 21, 2016 Discharge Disposition: Home Principal Diagnosis: diverticulitis Immunizations: History of Tetanus Vaccine?: APPROX 10 YRS AGO History of Pneumococcal: No History of Hepatitis B Vaccine: YES UNKNOWN DATE Medication Reconciliation New Medications: Amoxicillin & Pot Clavulanate (Augmentin 875-125 mg) 1 Tab Tab 875 MG PO BID, #20 TAB Fluconazole (Diflucan) 100 Mg Tab 150 MG PO weekly PRN for yeast infection, #4 TAB Lorazepam (Ativan) 1 Mg Tab 0.5-1 MG PO Q6H PRN for Anxiety/Agitation, #40 TAB Changed Medications: Paroxetine (Paroxetine HCl) 20 Mg Tab 20 MG PO QAM, #30 DOSE 6 Refills NS (Changed from: Refills: ) brand necessary Continued Medications: Acetaminophen (Tylenol) 500 Mg Tab 1000 MG PO Q6 PRN for Pain, TAB Cholecalciferol (Vitamin D) 1,000 Unit Tab 1000 UNITS PO QAM Diltiazem Hcl Extended Release (Diltiazem Hcl) 300 Mg Cap 300 MG PO QAM Furosemide (Lasix) 40 Mg Tab 40 MG PO QAM, TAB Hydrocodone/Acetaminophen 5MG/325MG ([place] 5MG/325MG) Tab 1-2 TABLET PO q 6 hrs PRN for Pain, #30 TAB (This prescription has been renewed) PRN PAIN Metformin Hcl (Glucophage) 1,000 Mg Tab 1000 MG PO BID, #60 Multivitamin (Multivitamin) Tab 1 TAB PO QAM, TAB Potassium Chloride (Potassium Chloride ER) 20 Meq Tab 20 MEQ PO QAM Prednisone (Prednisone) 5 Mg Tab 5 MG PO QAM, TAB Vitamin A ([id number]) 10,000 Unit Cap 1 TAB PO UD 5 DAYS PRIOR AND 5 DAYS POST OP Discharge Exam Review of Systems: Constitutional: No chills, No fever Respiratory: No cough, No dyspnea on exertion, No sputum Cardiovascular: No chest pain, No edema, No orthopnea Abdomen: + pain, No constipation, No diarrhea, No nausea Genitourinary - Female: No dysuria, No urinary frequency Psychiatric: + anxiety, + depression symptoms Physical Exam: General Appearance: WD/WN, no apparent distress Respiratory/Chest: chest non-tender, lungs clear, normal breath sounds Cardiovascular: regular rate, rhythm, no murmur Abdomen / GI: normal bowel sounds, soft, + tenderness Extremities: normal inspection, no calf tenderness, normal capillary refill Neurologic/Psychiatric: associate counsel II-XII nml as tested, alert Skin: normal color, warm/dry Hospital Course 60 F with acute sigmoid diverticulitis, and 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 will be on home augmentin and follow up with general surgery Adrenal suppression from chronic steroid usage for urticaria - hydrocortisone used and resume PO prednisone. Chronic systolic/diastolic CHF stable, resume PO lasix 40mg daily. T2DM - controlled; basal bolus, holding metformin. until after 72 hours from iv contrast start 06/22 recently dx recurrent breast ca/metastatic - appreciate heme/onc consultation appointments with Dr waller and Dr Hopkins next week. Incision on left chest wall is clean. Depression. anxiety - resume paxil. pt feels brand necessary is best for her HTN - Cardizem 300 Total Time Spent: Greater than 30 minutes This includes examination of the patient, discharge planning, medication reconciliation, and communication with other providers. Discharge Instructions Please refer to the electronic Patient Visit Report (Discharge Instructions) for additional information. Additional Copies To Armand Kearney M.D.; Armand Kearney MD.
[2016-07-05] MEDS ORDERED: MAGN400T6 PO (09:59)
[2016-07-05] MEDS ORDERED: ANAS1TAB19 PO (09:59)
[2016-07-05] MEDS ORDERED: LORA-741 PO (09:59)
[2016-07-12] MEDS ORDERED: CZR25 PO (15:27)
[2016-07-12] MEDS ORDERED: FRS/40 PO (15:27)
[2016-07-12] MEDS ORDERED: PARO30TA3 PO (15:27)
[2016-07-12] MEDS ORDERED: CRG625 PO (15:27)
[2016-07-12] MEDS ORDERED: METF-384 PO (15:27)
[2016-08-14] MEDS ORDERED: FRS/40 PO (10:41)
[2016-08-14] MEDS ORDERED: CRG625 PO (10:41)
[2016-08-14] MEDS ORDERED: CZR25 PO (10:41)
[2016-08-14] MEDS ORDERED: PARO30TA3 PO (10:41)
[2016-08-14] MEDS ORDERED: METF1TAB53 PO (10:41)
[2016-08-15] MEDS ORDERED: CARV25TA PO (17:01)
[2016-09-18] MEDS ORDERED: NITR1CAP32 PO (13:09)
[2016-09-18] MEDS ORDERED: PHEN-876 PO (13:09)
[2016-10-25] MEDS ORDERED: LOSA1TAB PO (15:15)
== END 2016-06-21 10:05 | disposition home or self-care (01) | DRG 391 ==
LOC: ENRESERVTM → ENRESERVDT → EDBD 17:20 → EDSEX 17:20 → C.EDA 17:21 → EEVIPCON 19:50 → C.2E 19:50
PROVIDERS: ADMIT Hospitalist; ATTEND Internal Medicine
DX: K57.20 Diverticulitis of large intestine with perforation and abscess without bleeding (principal); I50.43 Acute on chronic combined systolic (congestive) and diastolic (congestive) heart failure; N32.2 Vesical fistula, not elsewhere classified; C79.9 Secondary malignant neoplasm of unspecified site; I11.0 Hypertensive heart disease with heart failure; T38.0X5A Adverse effect of glucocorticoids and synthetic analogues, initial encounter; E11.9 Type 2 diabetes mellitus without complications; F32.9 Major depressive disorder, single episode, unspecified; F41.9 Anxiety disorder, unspecified; Z82.49 Family history of ischemic heart disease and other diseases of the circulatory system; Z87.891 Personal history of nicotine dependence; Z79.52 Long term (current) use of systemic steroids; Z90.13 Acquired absence of bilateral breasts and nipples; C50.919 Malignant neoplasm of unspecified site of unspecified female breast

== ENCOUNTER → 2016-06-30 | Outpatient (CLI) | payer OTHER ==
[~2016-06-30] MED LIST changes: +AMOX875T PO; +ANAS1TAB19 PO; +ATV/1 PO; +CARV25TA PO; +CRG625 PO; +CZR25 PO; +FLUC100T4 PO; +LORA-741 PO; +LOSA1TAB PO; +MAGN400T6 PO; +METF1TAB53 PO; +NITR1CAP32 PO; +PARO30TA3 PO; +PHEN-876 PO
--- NOTE | 2016-06-30 16:13 | DIAGNOSTIC IMAGING REPORT ---
CT OF THE ABDOMEN AND PELVIS WITH ORAL CONTRAST ONLY CT DOSE: 1322.33 mGy.cm CLINICAL HISTORY: Breast cancer. Diverticulitis. TECHNIQUE: Axial images of the abdomen and pelvis were obtained without IV contrast. Oral contrast was administered. COMPARISON STUDY: CT of the abdomen and pelvis June 19, 2016 and PET/CT May 17, 2016. FINDINGS: Visualized portions of the lower chest demonstrate a small right pleural effusion and trace left pleural effusion which have improved since exam of June 19, 2016. There is mild pulmonary edema. Subpleural opacity favors atelectasis. The heart is moderately enlarged. No pneumatosis, free air or portal venous gas is present. There is fatty infiltration of the liver. The spleen, adrenal glands, kidneys and pancreas are unremarkable. There is left colon diverticulosis. The pericolonic abscess adjacent to the proximal sigmoid colon shown on exam of June 19, 2016 has significantly decreased in size. It now measures 2.2 x 1.1 cm. It previously measured 3.1 x 1.8 cm. The small pericolonic abscess adjacent to the mid sigmoid colon is again noted with associated possible fistulous tract to small bowel and potentially the right bladder dome. This is similar to exam of June 19, 2016. The largest component of this collection measures 2.1 cm. Mild adjacent infiltration within the pelvis has improved since prior exam. The infiltration adjacent the appendix is likely related to diverticulitis. The appendix is gas-filled. IMPRESSION: 1. Overall improvement since exam of June 19, 2016 in findings consistent with multifocal acute diverticulitis. Near complete resolution of the pericolonic abscess along the proximal sigmoid colon. Persistent small pericolonic abscess adjacent to the mid sigmoid colon with possible associated fistula to small bowel and potentially the right aspect of the bladder dome. This could be correlated with urinalysis to evaluate for colovesical fistula. No new abscess. No bowel obstruction. 2. Small right and trace left pleural effusions which have improved since prior exam. Mild pulmonary edema. Electronically signed by: Gabe Ramirez M.D. 06/30/2016 4:11 PM Dictated Date/Time: 06/30/2016 3:55 PM
== END | disposition home or self-care (01) ==
LOC: C.CTS 08:04
PROVIDERS: ATTEND Surgery
DX: K57.32 Diverticulitis of large intestine without perforation or abscess without bleeding (principal); C50.919 Malignant neoplasm of unspecified site of unspecified female breast; J90 Pleural effusion, not elsewhere classified

== ENCOUNTER 2016-07-08 07:48 | Inpatient (IN) | payer OTHER ==
[~2016-07-08] VITALS: Ht 165.1 cm; Wt 100.8 kg
[~2016-07-08 07:48] MED LIST changes: -AMOX875T PO; -ATV/1 PO; -CARV25TA PO; -CRG625 PO; -CZR25 PO; -FLUC100T4 PO; -HYDR-5688 PO; -LOSA1TAB PO; -METF1TAB53 PO; -NITR1CAP32 PO; -PARO30TA3 PO; -PHEN-876 PO; -VITA1CAP11 PO
[2016-07-08 09:06] LABS: BASO % 0.4 %; BASO ABS # 0.05 K/uL (0-0.2); COMPLETE YES; EOS % 0.8 %; HEMATOCRIT 39.7 % (37-47); IG% 0.8 %; LYMPH % 14.5 %; LYMPH ABS # 1.91 K/uL (1.2-3.4); MEAN CELL VOLUME 94.5 fL (80-100); MEAN CORPUSCULAR HEMOGLOBIN 29.8 pg (25-34); MEAN CORPUSCULAR HGB CONC 31.5 g/dl (32-36); MEAN PLATELET VOLUME 10.6 fL (7.4-10.4); MONO % 5.3 %; NEUT % 78.2 %; PLATELET COUNT 433 K/uL (130-400); WHITE BLOOD COUNT 13.18 K/uL (4.8-10.8)
[2016-07-08 09:17] LABS: BUN/CREATININE RATIO 15.3 (10-20); CALCIUM 8.9 mg/dl (8.5-10.1); CREATININE 1.2 mg/dl (0.60-1.20); INR 1.3 (0.9-1.1); PARTIAL THROMBOPLASTIN RATIO 1.1; POTASSIUM 4.8 mmol/L (3.5-5.1); PROTHROMBIN TIME (PATIENT) 13.5 SECONDS (9.0-12.0)
--- NOTE | 2016-07-08 09:18 | DIAGNOSTIC IMAGING REPORT ---
CHEST ONE VIEW PORTABLE HISTORY: EVALUATE RESPIRATORY DISTRESS.DYSPNEA COMPARISON: Chest 06/16/2016. FINDINGS: Mild cardiomegaly. Mild interstitial pulmonary edema. Small left pleural effusion. This is increased in size. No pneumothorax. Left axillary surgical clips. IMPRESSION: Mild interstitial pulmonary edema and a small left pleural effusion. Electronically signed by: Sebastien Lovett M.D. 07/08/2016 9:17 AM Dictated Date/Time: 07/08/2016 9:16 AM
[2016-07-08 09:22] LABS: ALB/GLOB RATIO 0.8 (0.9-2)
[2016-07-08] MEDS ORDERED: FUROSEMIDE 40 MG/4 ML VIAL IV STA (09:39)
[2016-07-08] MEDS ORDERED: POLYETHYLENE (MIRALAX) 17 GM PACK PO PRN (10:00)
[2016-07-08] MEDS ORDERED: MAGNESIUM HYDROXIDE SUSP 30 ML UDC PO PRN (10:00)
[2016-07-08] MEDS ORDERED: ONDANSETRON INJ 2 MG/ML 2 ML VIAL IV PRN (10:00)
[2016-07-08] MEDS ORDERED: NITROGLYCERIN 0.4 MG SL PER TAB CHARGE SL PRN (10:00)
[2016-07-08] MEDS ORDERED: ALUMINUM/MAGNESIUM/SIMETH (MAALOX MAX) 30 ML UDC PO PRN (10:00)
[2016-07-08] MEDS ORDERED: ACETAMINOPHEN 325 MG TAB PO PRN (10:00)
[2016-07-08] MEDS: INSULIN ASPART 100 UNITS/ML 3 ML PEN SC SCH ×3 (11:00→21:00)
--- NOTE | 2016-07-08 11:27 | DIAGNOSTIC IMAGING REPORT ---
CHEST CTA for PULMONARY ARTERIES CT DOSE: 534.74 mGy.cm HISTORY: Atypical chest pain. TECHNIQUE: Multiaxial CT images of the chest were performed following the intravenous administration of contrast to evaluate the pulmonary arteries. Maximal intensity projection images were also obtained. COMPARISON STUDY: Chest CT 05/01/2016. FINDINGS: Normal caliber thoracic aorta. Evaluation for an aortic dissection is nondiagnostic due to the lack of intravenous contrast. The heart remains enlarged. Small bilateral pleural effusions have increased in size. The bilateral lower lobe subsegmental pulmonary arteries are nondiagnostic due to poor contrast opacification. Otherwise, the remaining pulmonary arteries show no evidence for pulmonary embolus. The central airways are patent. No pneumothorax. Stable 7 mm subpleural nodular density within the lingula on image 150. Old, healed right-sided rib fractures. Mild mediastinal and bilateral hilar lymphadenopathy which is slightly progressed. Dominant right peritracheal lymph node measures 14 mm, previous measuring 11 mm area there is a 7 mm left internal mammary lymph node. Trace ascites. The visualized liver and spleen are unremarkable. Surgical clips within the left axilla. Interval resection of the left anterior chest wall mass. There is a 12 x 11 x 4 cm left anterior chest wall subcutaneous fluid collection. This favors a postoperative seroma. IMPRESSION: 1. No evidence for pulmonary embolus limitations as described above. 2. Interval progression of the moderate pulmonary edema and small bilateral pleural effusions. 3. Stable 7 mm subpleural nodular density within the lingula. 3. Mediastinal and bilateral hilar lymphadenopathy which is slightly progressed. There is also a 7 mm left internal mammary lymph node. This could be reactive or due to the pulmonary edema. However, one month chest CT follow up is recommended to ensure resolution. 5. Interval resection of the left anterior chest wall mass. There is a 12 x 11 x 4 cm left anterior chest wall subcutaneous fluid collection. This favors a postoperative seroma. An old hematoma or abscess could also have a similar appearance in the appropriate clinical setting. Electronically signed by: Sebastien Lovett M.D. 07/08/2016 11:26 AM Dictated Date/Time: 07/08/2016 11:15 AM
--- NOTE | 2016-07-08 11:58 | HISTORY & PHYSICAL EXAMINATION ---
DATE OF ADMISSION: 07/08/2016 ADMITTING ADMISSION: Acute hypoxic respiratory failure. HISTORY OF PRESENT ILLNESS: Ms. Ojeda is a 60-year-old female, who has recently been diagnosed with acute sigmoid diverticulitis, and recurrence of distant breast cancer. The patient recently has completed her outpatient Augmentin course that has being simulated for radiation therapy for her breast after having an excisional biopsy on June 12 recurrence of her left chest wall mass, breast cancer. The patient has slight seroma at her biopsy site. The patient presents with progressive shortness of breath. This has been going on for the last few days. She says she thought it was just anxiety causing her to be short of breath. When she presented to the Emergency Department, she was found to be hypoxic on room air with room sat of 88. The patient was seen and evaluated and did have some chest x-ray changes of mild congestive failure. She was given intravenous Lasix and recommended for admission. The patient states she has had no changes with leg pain, swelling, erythema or tenderness. She says she just feels generally short of breath. PAST MEDICAL HISTORY: Recurrence of her breast carcinoma, diabetes, usually controlled with metformin, previous lumbar disc herniation with radiculopathy, previous bilateral mastectomy, history of GERD, anxiety, history of acute systolic and diastolic heart failure with an EF of 45% on last echocardiogram October 2015. Previous history of PVCs. FAMILY HISTORY: For cancer, heart disease, hypertension. PREVIOUS SOCIAL HISTORY: Includes a former smoker, now quit. Does not drink alcohol. Single, lives alone. MEDICATIONS: On presentation include, Tylenol 1000 q. 6 p.r.n., vitamin D 1000 q.a.m., Lasix 40 q.a.m., metformin 1000 b.i.d., multivite once a day, prednisone 5 a day and Arimidex 1 mg a day, diltiazem 300 a day, lorazepam 0.5 t.i.d. p.r.n., magnesium 400 a day, paroxetine 20 a day, and potassium 20 a day. REVIEW OF SYSTEMS: Ten systems were reviewed and are negative unless listed above. These include no fevers, no cough productive of sputum. No changes in bowel habits. No diarrhea, no melena, no changes in urinary habits, dysuria, hematuria. No changes in oral complaints such as lesions, open sores or discomfort. PHYSICAL EXAMINATION: GENERAL: She is pleasant. She appears anxious. VITAL SIGNS: Her pulse is 107, respiration rate is 24, blood pressure 135/90, O2 sat 88 on room air, 95 on 2 liters. HEENT: PERRL, EOMI. Oropharynx clear. NECK: Without lymphadenopathy. There is no JVD. HEART: Regular with a systolic murmur heard at the right upper sternal border. LUNGS: Have very few rales. Scant, no decreased focal air loss. ABDOMEN: Normoactive bowel sounds, soft, nontender. EXTREMITIES: Without cyanosis, clubbing or edema. No Homans' signs, venous cords or tenderness. SKIN: Her left chest wall shows a seroma at a horseshoe-shaped incisional scar over her left chest, where she had her incisional biopsy done. Otherwise, skin exam is without lesions, growths, bruises or bleeding. PSYCHOLOGICAL: Exam shows her to be anxious, slightly depressed. NEUROLOGICALLY: She is awake, alert and appropriate. Cranial nerves II-XII are intact. LABORATORY DATA: Has a white count 13, H&H is 12 and 39, platelet count is 433, BUN and creatinine is 18 and 1.2, glucose 153. LFTs are unremarkable. BNP is 10,574. She does have a D-dimer that is 1210. She has an EKG which shows sinus tachycardia, no acute ST or T-wave changes and she has got a chest x-ray which shows slight pulmonary edema. ASSESSMENT: A 60-year-old female here with recent diagnosis of recurrent breast carcinoma with acute onset shortness of breath and history of mixed systolic and diastolic heart failure. PLAN: For most dangerous condition at this point in time would be pulmonary embolism associated with malignancy. We will therefore get a CT scan of her chest and discontinue the venous Dopplers ordered by the Emergency Department. If this proves to be with pulmonary embolism, a therapeutic anticoagulation will be begun, will use Lovenox till that time. Possibly worsening heart failure. A repeat echocardiogram will be undertaken since it is 6 months since her last time and Lasix will be continued 40 mg b.i.d. along with diltiazem. Cardiology consult undertaken. Anxiety and depression, will maintain paroxetine continuing p.r.n. Ativan. Regarding her breast cancer, continue Arimidex. Regarding her diabetes, Glucophage, will held given that we are going to be using IV contrast for her CT scan. Insulin sliding scale with diabetic diet, low sodium diet will be continued. This patient is a full code.
[2016-07-08] MEDS ORDERED: GLUCOSE 40% GEL 15 GM TUBE PO PRN (12:00)
[2016-07-08] MEDS ORDERED: LORAZEPAM INJ 0.5 MG in SYRINGE 0.75 ML IV PRN (12:00)
[2016-07-08] MEDS ORDERED: LORAZEPAM INJ 1 MG in SYRINGE 0.5 ML IV PRN (12:00)
[2016-07-08] MEDS ORDERED: GLUCAGON FOR INJ 1 MG VIAL SQ PRN (12:00)
[2016-07-08] MEDS ORDERED: DEXTROSE 50% 50 ML SYR IV PRN (12:00)
[2016-07-08] MEDS ORDERED: GLUCOSE 10 TABS/TUBE PO PRN (12:00)
[2016-07-08] MEDS: HYDROCORTISONE IV 50 MG in SYRINGE 0 ML IV SCH ×2 (12:11→20:00)
--- NOTE | 2016-07-08 13:45 | CARDIOLOGY CONSULTATION ---
DATE OF CONSULTATION: 07/08/2016 DATE OF CONSULTATION: 07/08/2016. PERTINENT HISTORY: Mrs. Ojeda is a 60-year-old white female admitted earlier today with complaints of shortness of breath and mildly decompensated congestive heart failure. This consultation was ordered to assist in her cardiac management. The patient is well known to me from the inpatient and outpatient settings. She was well until approximately 5-7 days ago when she began to note significant progressive exertional dyspnea. Over the last 2 nights, she has noted orthopnea and episodes of PND. The patient and I speak by telephone yesterday regarding her shortness of breath. She planned to increase her furosemide to 40 mg b.i.d., however, there was no improvement in her symptoms with that 1 additional dose of furosemide. The patient's cardiac history began back in December 2015 when she was admitted to the hospital with frequent symptomatic PVCs. Her workup at that time included an echocardiogram which noted mild left ventricular dysfunction with an ejection fraction of 45-50%. This was felt likely related to her prior chemotherapy. The possibility of frequent ectopic beats was also entertained. She was found to have mild mitral and tricuspid regurgitation. There was evidence of diastolic dysfunction. The patient initially had over 9000 PVCs in a 24-hour period. She was placed on a long acting beta jason, however developed significant bronchospasm and that medication was discontinued. She was then placed on long acting calcium channel jason which dramatically reduced her ectopic beats and symptoms. 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 She then was readmitted on the 16 of June with acute diverticulitis with a pericolic abscess. A surgical intervention may be planned for the near future. She has had followup abdominal CT scans for her pericolonic abscess. These have revealed evidence of mild congestive heart failure and bilateral pleural effusions. Most recent scan was performed on 06/30/2016. Of importance, the patient did undergo a nuclear stress test in January because of her frequent PVCs and mild cardiomyopathy. This revealed no evidence of myocardial ischemia. Her ejection fraction was reduced but this was felt secondary to her frequent PVCs. The patient has not experienced recent exertional chest pain. She has noted dyspnea as described above. She denies syncope and presyncope. Did experience PND and orthopnea as described. He has also noticed lower extremity edema. Currently, the patient is resting comfortably in bed without complaints. PAST MEDICAL HISTORY: 1. Mild left ventricular dysfunction -- 45-50%. 2. 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 3. No ischemia - January 2016. 4. Mild mitral regurgitation. 5. Mild tricuspid regurgitation. 6. Frequent PVCs. 7. Hypertension. 8. Hypercholesterolemia. 9. Diabetes mellitus. 10. GERD. 11. Left breast adenocarcinoma, 1994. 12. Left mastectomy -- 1994. 13. Right mastectomy - September 2004. 14. Right chest wall adenocarcinoma recurrence - June 2016. 15. Acute diverticulitis with pericolic abscess - June 2016. 16. Idiopathic urticaria. 17. Chronic steroid use. 18. L5-S1 laminectomy. 19. L4-L5 disc herniation. MEDICATIONS: 1. Cardizem-CD 300 mg daily. 2. Furosemide 40 mg IV b.i.d. 3. Lovenox 40 mg subQ daily. 4. Potassium 20 mEq daily. 5. Magnesium oxide 400 mg daily. 6. Arimidex 1 mg daily. 7. Paxil 20 mg daily. 8. Hydrocortisone 50 mg IV q. 8 hours. 9. Sliding scale insulin. ALLERGIES: 1. ASPIRIN. 2. IBUPROFEN. 3. TAMOXIFEN. ADVERSE DRUG REACTION: Beta blockers -- bronchospasm. 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 Recently discontinued tobacco use, however smoked 1 pack daily for 30 years. Does not use alcohol. FAMILY HISTORY: Mother at age 56 from breast carcinoma. Father at age 86 from aortic stenosis. Her sister has a history of breast carcinoma. REVIEW OF SYSTEMS: A 10-point review of systems was negative except for that described above. PHYSICAL EXAMINATION: GENERAL: Well-developed, well-nourished female in no acute distress. VITAL SIGNS: Blood pressure 136/78 with a regular pulse of 90. Respiratory rate is 24. The patient is afebrile at 36.8 degrees Celsius. Saturation is 92% on 2 liters nasal cannula. HEAD, EYES, EARS, NOSE, AND THROAT EXAMINATION: Negative. NECK: Supple. Full carotid upstrokes. No carotid bruits. Jugular venous pressure is flat at 90 degrees. There is no thyromegaly. CARDIOVASCULAR EXAMINATION: Reveals a regular rhythm with normal S1 and S2. No S3, S4, or murmurs are noted. LUNGS: Clear without rales, rhonchi, or wheezes. ABDOMEN: Obese without bruits. EXTREMITIES: Reveal intact radial artery and posterior tibial pulses bilaterally. Trace pretibial edema is noted. LABORATORY DATA: CBC notes hemoglobin 12.5, hematocrit 39.7, white count 13.1, platelet count 433,000. Electrolytes note a sodium of 141, potassium 4.8, chloride 106, bicarbonate 23, BUN 18, creatinine 1.2, glucose 159. Magnesium level is normal at 2.0. INR is 1.3. Troponin I level is 0.04. BNP is 10,574. EKG notes sinus tachycardia with a left atrial abnormality. Chest x-ray notes cardiomegaly and mild congestive failure. Chest CT notes no evidence of pulmonary embolism. There is evidence of pulmonary edema and bilateral pleural effusions which are small. There is diffuse mediastinal or hilar adenopathy. IMPRESSION: Mrs. Ojeda was admitted with mildly decompensated congestive heart failure. Agree with use of intravenous diuretics. Also agree with reassessing left ventricular systolic function. We have discussed daily weights and sliding scale diuretics to hopefully avoid the situation in the future. PLAN: 1. Agree with intravenous diuretics. 2. Agree with echocardiogram. 3. Would follow cardiac enzymes. 4. Further recommendations depending on her clinical course.
[2016-07-08 13:46] LABS: URINE APPEARANCE CLEAR (CLEAR); URINE BILIRUBIN NEG (NEG); URINE COLOR YELLOW; URINE NITRITE NEG (NEG); URINE SPECIFIC GRAVITY 1.023 (1.000-1.030); UROBILINOGEN NEG (NEG)
[2016-07-08 13:53] LABS: MANUAL MICROSCOPIC REQUIRED? NO; REVIEW REQ? NO
--- NOTE | 2016-07-08 14:24 | EMERGENCY ROOM VISIT NOTE ---
History Report prepared by Rupali: Haroon Wilson Under the Supervision of: Dr. Tj Bertrand D.O. First contact with patient: 07:52 Chief Complaint: RESPIRATORY PROBLEMS Stated Complaint: SOB History of Present Illness The patient is a 60 year old female who presents to the Emergency Room with complaints of worsening shortness of breath that started 4 days ago. She thinks it may be anxiety related, and she has been having a hard time sleeping for the past 4 days as well. The patient says this all started after she was told that she needed to have surgery for breast cancer. The patient has diverticulitis, and had an area removed from her chest recently that came back cancerous, per the nursing staff. The patient has a history of breast cancer, and this is thought to be the same thing. She says that her shortness of breath is worsened with lying down, and a bit with walking. The patient states that she can lie flat for a while, but then she is feeling like she is catching her breath. The patient notes that her legs are a bit more swollen than usual today. She says that she was recently admitted for pneumonia and CHF, and was put on a week of Augmentin. The patient had a bout of diverticulitis after being admitted. She says that she is scheduled to start her simulation for breast cancer next week, and will have 6 weeks of cancer treatment, and then will have surgery afterwards. She denies any nausea, vomiting, diarrhea, abdominal pain, or leg tinging. She has not had any recent falls. The patient adds that she has been admitted before for frequent PVC's. She is taking Ativan. The patient is an ex- smoker. She has no asthma of COPD history. Source of History: patient Onset: 4 days ago Position: other (global - shortness of breath) Timing: worsening Modifying Factors (Worsening): exertion, other (lying down) Modifying Factors (Relieving): other (sitting up) Associated Symptoms: No nausea, No vomiting, No abdominal pain, No diarrhea Note: Associated symptoms: More leg swelling than usual today. Denies leg tingling. Review of Systems See HPI for pertinent positives & negatives. A total of 10 systems reviewed and were otherwise negative. Past Medical & Surgical Medical Problems: (1) Acute diverticulitis (2) Acute hypoxemic respiratory failure (3) Acute respiratory failure with hypoxia (4) Colonic diverticular abscess (5) Diabetes (6) Lumbar disc herniation with radiculopathy (7) Pneumonia (8) Shortness of breath (9) SOB (shortness of breath) Surgical Problems: (1) H/O bilateral mastectomy Family History Cancer Heart disease Hypertension Social History Smoking Status: Current Every Day Smoker Drug Use: none Marital Status: single Housing Status: lives alone Occupation Status: employed Current/Historical Medications Scheduled Anastrozole (Arimidex), 1 TAB PO DAILY Cholecalciferol (Vitamin D), 1,000 UNITS PO QAM Diltiazem Hcl Extended Release (Diltiazem Hcl), 300 MG PO QAM Furosemide (Lasix), 40 MG PO QAM Magnesium Oxide (Mag-Ox), 400 MG PO DAILY Metformin Hcl (Glucophage), 1,000 MG PO BID Multivitamin (Multivitamin), 1 TAB PO QAM Paroxetine (Paroxetine HCl), 20 MG PO QAM Potassium Chloride (Potassium Chloride ER), 20 MEQ PO QAM Prednisone (Prednisone), 5 MG PO QAM Scheduled PRN Acetaminophen (Tylenol), 1,000 MG PO Q6 PRN for Pain Lorazepam (Ativan), 0.5 MG PO TID PRN for Anxiety/Insomnia Allergies Coded Allergies: Aspirin (Verified Allergy, Mild, HIVES, 07/08/16) Ibuprofen (Verified Allergy, Mild, HIVES, 07/08/16) Tamoxifen (Verified Allergy, Unknown, TEMP LOSS OF VISION IN LEFT EYE, 07/08) Physical Exam Vital Signs Date Time Temp Pulse Resp B/P (MAP) Pulse Ox O2 Delivery O2 Flow Rate FiO2 07/08/16 09:08 98 16 136/78 93 Nasal Cannula 2.0 Mechanical Ventilator 07/08/16 08:29 95 Nasal Cannula 2.0 07/08/16 08:28 88 Room Air 07/08/16 08:28 95 Nasal Cannula 2.0 07/08/16 08:13 93 Room Air 07/08/16 08:09 107 07/08/16 07:58 107 07/08/16 07:50 108 24 135/90 93 Room Air Physical Exam GENERAL: sitting up in bed, tearful, disheveled, slightly tachypneic EYE EXAM: normal conjunctiva OROPHARYNX: no exudate, no erythema, lips, buccal mucosa, and tongue normal and mucous membranes are moist NECK: supple, no nuchal rigidity, no adenopathy, non-tender. Mild JVD. LUNGS: Faint crackles at bilateral bases. Normal chest wall mechanics HEART: no murmurs, S1 normal and S2 normal ABDOMEN: abdomen soft, non-tender, normo-active bowel sounds, no masses, no rebound or guarding. BACK: Back is symmetrical on inspection and there is no deformity, no midline tenderness, no CVA tenderness. SKIN: no rashes and no bruising UPPER EXTREMITIES: upper extremities are grossly normal. LOWER EXTREMITIES: Bilateral pitting edema. NEURO EXAM: Normal sensorium, cranial nerves II-XII grossly intact, normal speech, no gross weakness of arms, no gross weakness of legs. Medical Decision & Procedures ER Provider Diagnostic Interpretation: X-ray results as stated below per my review and the radiologist's interpretation : CHEST ONE VIEW PORTABLE HISTORY: EVALUATE RESPIRATORY DISTRESS.DYSPNEA COMPARISON: Chest 06/16/2016. FINDINGS: Mild cardiomegaly. Mild interstitial pulmonary edema. Small left pleural effusion. This is increased in size. No pneumothorax. Left axillary surgical clips. IMPRESSION: Mild interstitial pulmonary edema and a small left pleural effusion. Electronically signed by: Sebastien Lovett M.D. 07/08/2016 9:17 AM Dictated Date/Time: 07/08/2016 9:16 AM Laboratory Results 07/08/16 08:15 Red Blood Count 4.20, Mean Corpuscular Volume 94.5, Mean Corpuscular Hemoglobin 29.8, Mean Corpuscular Hemoglobin Concent 31.5, Mean Platelet Volume 10.6, Neutrophils (%) (Auto) 78.2, Lymphocytes (%) (Auto) 14.5, Monocytes (%) (Auto) 5.3, Eosinophils (%) (Auto) 0.8, Basophils (%) (Auto) 0.4, Neutrophils # (Auto) 10.32, Lymphocytes # (Auto) 1.91, Monocytes # (Auto) 0.70, Eosinophils # (Auto) 0.10, Basophils # (Auto) 0.05 07/08/16 08:15 Test 07/08/16 00:00 07/08/16 08:15 Urine Color YELLOW Urine Appearance CLEAR (CLEAR) Urine pH 5.0 (4.5-7.5) Urine Specific Milnor 1.023 (1.000-1.030) Urine Protein NEG (NEG) Urine Glucose (UA) NEG (NEG) Urine Ketones NEG (NEG) Urine Occult Blood NEG (NEG) Urine Nitrite NEG (NEG) Urine Bilirubin NEG (NEG) Urine Urobilinogen NEG (NEG) Urine Leukocyte Esterase NEG (NEG) White Blood Count 13.18 K/uL (4.8-10.8) Red Blood Count 4.20 M/uL (4.2-5.4) Hemoglobin 12.5 g/dL (12.0-16.0) Hematocrit 39.7 % (37-47) Mean Corpuscular Volume 94.5 fL (80-100) Mean Corpuscular Hemoglobin 29.8 pg (25-34) Mean Corpuscular Hemoglobin Concent 31.5 g/dl (32-36) Platelet Count 433 K/uL (130-400) Mean Platelet Volume 10.6 fL (7.4-10.4) Neutrophils (%) (Auto) 78.2 % Lymphocytes (%) (Auto) 14.5 % Monocytes (%) (Auto) 5.3 % Eosinophils (%) (Auto) 0.8 % Basophils (%) (Auto) 0.4 % Neutrophils # (Auto) 10.32 K/uL (1.4-6.5) Lymphocytes # (Auto) 1.91 K/uL (1.2-3.4) Monocytes # (Auto) 0.70 K/uL (0.11-0.59) Eosinophils # (Auto) 0.10 K/uL (0-0.5) Basophils # (Auto) 0.05 K/uL (0-0.2) RDW Standard Deviation 49.6 fL (36.4-46.3) RDW Coefficient of Variation 14.7 % (11.5-14.5) Immature Granulocyte % (Auto) 0.8 % Immature Granulocyte # (Auto) 0.10 K/uL (0.00-0.02) Prothrombin Time 13.5 SECONDS (9.0-12.0) Prothromb Time International Ratio 1.3 (0.9-1.1) Activated Partial Thromboplast Time 28.8 SECONDS (21.0-31.0) Partial Thromboplastin Ratio 1.1 D-Dimer 1210 ug/L FEU (0-500) Anion Gap 12.0 mmol/L (3-11) Est Creatinine Clear Calc Drug Dose 59.4 ml/min Estimated GFR () 56.5 Estimated GFR (Non- 48.7 BUN/Creatinine Ratio 15.3 (10-20) Calcium Level 8.9 mg/dl (8.5-10.1) Magnesium Level 2.0 mg/dl (1.8-2.4) Total Bilirubin 0.4 mg/dl (0.2-1) Aspartate Amino Transf (AST/SGOT) 13 U/L (15-37) Alanine Aminotransferase (ALT/SGPT) 23 U/L (12-78) Alkaline Phosphatase 73 U/L (45-117) Troponin I 0.040 ng/ml (0-0.045) Pro-B-Type Natriuretic Peptide 69016 pg/ml (0-900) Total Protein 7.6 gm/dl (6.4-8.2) Albumin 3.3 gm/dl (3.4-5.0) Globulin 4.3 gm/dl (2.5-4.0) Albumin/Globulin Ratio 0.8 (0.9-2) Laboratory results per my review. Medications Administered Medications (Trade) Dose Ordered Sig/Omkar Route Start Time Stop Time Status Last Admin Dose Admin Furosemide (Lasix Inj) 40 mg NOW STAT IV 07/08/16 09:39 07/08/16 09:40 DC 07/08/16 09:50 40 MG ECG Indication: SOB/dyspnea Rate (beats per minute): 110 Rhythm: sinus tachycardia Findings: other (normal axis, low voltage) Change: no significant change (from 06/18/16) ED Course ED COURSE: Vital signs were reviewed and showed tachycardic vitals. The patients medical record was reviewed The above diagnostic studies were performed and reviewed. ED treatments and interventions as stated above. 0754: The patient was evaluated in room A4B. A complete history and physical examination was performed. 0916: I reevaluated and updated the patient. 0932: Upon reevaluation, the patient is resting in bed.I discussed my findings with the patient and she understands and agrees with the treatment plan. Based on the patients age, coexisting illnesses, exam and lab findings the decision to treat as an inpatient was made. The patient remained stable while under my care. The patient will be evaluated for further management. 0937: I discussed the patient with Dr. Barkley - [facility] cardiology - he recommended to go ahead with IV Lasix, and will come in and evaluate the patient. He also agreed with getting an ultrasound of the patient's legs. 938: Ordered Lasix Inj 40 mg IV. 941: I discussed the patient with Dr. Miguel Angel MENDIOLA trimming cutter - he will evaluate the patient for further treatment. Medical Decision Differential diagnoses includes but is not limited to pneumonia, bronchitis, COPD/Asthma exacerbation, pneumothorax, pulmonary embolism, congestive heart failure, acute coronary syndrome Medication Reconciliation: I attest that I have personally reviewed the patient' s current medication list. Blood pressure screening: Patient was found to have normal blood pressure on screening and does not require follow-up. Patient is a 60-year-old female that presents the ER for shortness of breath. She admits to increased swelling in the legs. On exam she has JVD along with pitting edema and mild crackles supporting CHF. Chest x-ray and BNP supports this. CBC along with BMP was fairly unremarkable. Troponin was detectable but not positive. D-dimer was elevated with her history of cancer, duplexes of the lower extremities were ordered to see if she had DVTs in the lower extremities which would prevent any need for a CT PE as this would be assumed. I discussed the case with cardiology and they agreed with IV Lasix. Patient was updated bedside. She was admitted to internal medicine. Consults Time Called: [phone] Consulting Physician: Dr. Rubia MENDIOLA cardiology Returned Call: [phone] I discussed the patient with Dr. Rubia MENDIOLA cardiology - he recommended to go ahead with IV Lasix, and will come in and evaluate the patient. He also agreed with getting an ultrasound of the patient's legs. Additional Consults: Time Called: [phone] Consulted Physician: Dr. Miguel Angel MENDIOLA trimming cutter Returned Call: [phone] Additional Comments: I discussed the patient with Dr. Miguel Angel MENDIOLA trimming cutter - he will evaluate the patient for further treatment. Impression Primary Impression: CHF (congestive heart failure) Scribe Attestation The scribe's documentation has been prepared under my direction and personally reviewed by me in its entirety. I confirm that the note above accurately reflects all work, treatment, procedures, and medical decision making performed by me. Departure Information Dispostion Being Evaluated By Hospitalist Referrals Armand Kearney M.D. (PCP) Patient Instructions My [facility] Problem Qualifiers Primary Impression: CHF (congestive heart failure) Congestive heart failure type: unspecified congestive heart failure type Congestive heart failure chronicity: unspecified congestive heart failure chronicity Qualified Codes: I50.9 - Heart failure, unspecified
[2016-07-08 14:37] VITALS: O2SAT 95; Ht 165.1 cm; Wt 100.8 kg
[2016-07-08] MEDS ORDERED: PERFLUTREN LIPID MICROSPHERE (DEFINITY) IV ONE (14:39)
[2016-07-08] MEDS: LORAZEPAM 0.5 MG TAB PO PRN ×2 (14:55→20:00)
[2016-07-08 14:57] VITALS: BP 134/95; PULSE 107; TEMP 36.3; O2SAT 94
[2016-07-08] MEDS: FUROSEMIDE INJ 40 MG in SYRINGE 0 ML IV SCH (17:28)
[2016-07-08 20:09] VITALS: BP 131/87; PULSE 107; TEMP 36.6; O2SAT 96
[2016-07-08 23:20] VITALS: BP 117/85; PULSE 89; TEMP 36.7; O2SAT 96
[2016-07-09] VITALS (7 sets, daily range): BP systolic 94–122; BP diastolic 54–77; PULSE 91–119; TEMP 36.4–36.9; O2SAT 93–98
[2016-07-09] MEDS: HYDROCORTISONE IV 50 MG in SYRINGE 0 ML IV SCH (03:30)
[2016-07-09] MEDS: INSULIN ASPART 100 UNITS/ML 3 ML PEN SC SCH ×4 (07:00→20:42)
[2016-07-09 07:38] LABS: HEMATOCRIT 41.4 % (37-47); MEAN CELL VOLUME 93.5 fL (80-100); MEAN CORPUSCULAR HEMOGLOBIN 28.2 pg (25-34); MEAN CORPUSCULAR HGB CONC 30.2 g/dl (32-36); MEAN PLATELET VOLUME 10.1 fL (7.4-10.4); PLATELET COUNT 406 K/uL (130-400); RED BLOOD COUNT 4.43 M/uL (4.2-5.4); WHITE BLOOD COUNT 13.71 K/uL (4.8-10.8)
--- NOTE | 2016-07-09 07:53 | Progress Note ---
Subjective Date of Service: Jul 09, 2016. Subjective alexandra is trearful today , surrounded by friends, wishes to include XRT in decision making, for possible LHC this week Problem List Medical Problems: (1) CHF (congestive heart failure) Status: Acute (2) CHF exacerbation Status: Acute (3) Congestive heart failure Status: Acute (4) Diverticulitis of intestine with perforation and abscess Status: Acute (5) Elevated WBC count Status: Acute (6) Frequent PVCs Status: Acute Review of Systems Constitutional: + weakness, + fatigue, No fever, No chills Respiratory: + shortness of breath, + dyspnea on exertion, No cough Cardiac: No chest pain, No edema Abdomen: No pain, No nausea, No vomiting, No diarrhea Female : No dysuria, No urinary frequency Neurologic: + weakness, + balance problems, No memory loss, No paralysis Objective Vital Signs Date Time Temp Pulse Resp B/P (MAP) Pulse Ox O2 Delivery O2 Flow Rate FiO2 07/09/16 07:24 36.7 99 20 111/77 (88) 94 Nasal Cannula 2.0 07/09/16 04:00 Nasal Cannula 2.0 07/09/16 03:03 36.7 91 17 111/72 (85) 96 Nasal Cannula 2.0 07/09/16 00:00 Nasal Cannula 2.0 07/08/16 23:20 36.7 89 23 117/85 (96) 96 Nasal Cannula 2.0 07/08/16 20:09 36.6 107 20 131/87 (102) 96 Nasal Cannula 2.0 07/08/16 20:00 Nasal Cannula 2.0 07/08/16 16:00 Nasal Cannula 07/08/16 14:57 36.3 107 16 134/95 (108) 94 07/08/16 14:37 95 Nasal Cannula 2.0 07/08/16 10:47 112 24 92 07/08/16 09:08 98 16 136/78 93 Nasal Cannula 2.0 Mechanical Ventilator 07/08/16 08:29 95 Nasal Cannula 2.0 07/08/16 08:28 88 Room Air 07/08/16 08:28 95 Nasal Cannula 2.0 07/08/16 08:13 93 Room Air 07/08/16 08:09 107 07/08/16 07:58 107 Physical Exam General Appearance: WD/WN, + mild distress Neck: supple, no JVD Respiratory/Chest: chest non-tender, lungs clear Cardiovascular: regular rate, rhythm, + systolic murmur Abdomen: normal bowel sounds, non tender, soft Extremities: no pedal edema, no calf tenderness Neurologic/Psychiatric: alert, oriented x 3 Laboratory Results Last 24 Hours Test 07/08/16 08:15 07/08/16 12:17 07/08/16 16:19 07/09/16 06:37 White Blood Count 13.18 K/uL Red Blood Count 4.20 M/uL Hemoglobin 12.5 g/dL Hematocrit 39.7 % Mean Corpuscular Volume 94.5 fL Mean Corpuscular Hemoglobin 29.8 pg Mean Corpuscular Hemoglobin Concent 31.5 g/dl Platelet Count 433 K/uL Mean Platelet Volume 10.6 fL Neutrophils (%) (Auto) 78.2 % Lymphocytes (%) (Auto) 14.5 % Monocytes (%) (Auto) 5.3 % Eosinophils (%) (Auto) 0.8 % Basophils (%) (Auto) 0.4 % Neutrophils # (Auto) 10.32 K/uL Lymphocytes # (Auto) 1.91 K/uL Monocytes # (Auto) 0.70 K/uL Eosinophils # (Auto) 0.10 K/uL Basophils # (Auto) 0.05 K/uL RDW Standard Deviation 49.6 fL RDW Coefficient of Variation 14.7 % Immature Granulocyte % (Auto) 0.8 % Immature Granulocyte # (Auto) 0.10 K/uL Prothrombin Time 13.5 SECONDS Prothromb Time International Ratio 1.3 Activated Partial Thromboplast Time 28.8 SECONDS Partial Thromboplastin Ratio 1.1 D-Dimer 1210 ug/L FEU Sodium Level 141 mmol/L Potassium Level 4.8 mmol/L Chloride Level 106 mmol/L Carbon Dioxide Level 23 mmol/L Anion Gap 12.0 mmol/L Blood Urea Nitrogen 18 mg/dl Creatinine 1.20 mg/dl Est Creatinine Clear Calc Drug Dose 59.4 ml/min Estimated GFR () 56.5 Estimated GFR (Non- 48.7 BUN/Creatinine Ratio 15.3 Random Glucose 153 mg/dl Calcium Level 8.9 mg/dl Magnesium Level 2.0 mg/dl Total Bilirubin 0.4 mg/dl Aspartate Amino Transf (AST/SGOT) 13 U/L Alanine Aminotransferase (ALT/SGPT) 23 U/L Alkaline Phosphatase 73 U/L Troponin I 0.040 ng/ml Pro-B-Type Natriuretic Peptide 53175 pg/ml Total Protein 7.6 gm/dl Albumin 3.3 gm/dl Globulin 4.3 gm/dl Albumin/Globulin Ratio 0.8 Bedside Glucose 138 mg/dl 130 mg/dl 142 mg/dl Test 07/09/16 07:14 White Blood Count 13.71 K/uL Red Blood Count 4.43 M/uL Hemoglobin 12.5 g/dL Hematocrit 41.4 % Mean Corpuscular Volume 93.5 fL Mean Corpuscular Hemoglobin 28.2 pg Mean Corpuscular Hemoglobin Concent 30.2 g/dl RDW Standard Deviation 50.0 fL RDW Coefficient of Variation 14.8 % Platelet Count 406 K/uL Mean Platelet Volume 10.1 fL Assessment and Plan 60-year-old female here with recent diagnosis of recurrent breast carcinoma with acute onset shortness of breath and history of mixed systolic and diastolic heart failure. acute on chronic systolic and diastolic heart failure. echocardiogram shows dramatic global reduction in systolic function Lasix 40 mg b.i.d. Cardiology consult following, wishes to stop diltiazem, start coreg and losartan and consider LHC for ischemic workup CTA did rule out PE Anxiety and depression, still anxious at times paroxetine continuing p.r.n. Ativan. breast cancer, continue Arimidex, CTA shows chest wall seroma at surgical site, request XRT to help coordinate treatments once heart issues are settled. diabetes, reasonable contontl with Glucophage being held Insulin sliding scale with diabetic diet, low sodium diet will be continued. This patient is a full code. Offered Psyche consult pt refused
[2016-07-09 08:11] LABS: BUN/CREATININE RATIO 17.9 (10-20); CREATININE 1.1 mg/dl (0.60-1.20); POTASSIUM 4.3 mmol/L (3.5-5.1)
[2016-07-09 08:24] LABS: CALCIUM 8.9 mg/dl (8.5-10.1)
[2016-07-09] MEDS: PAROXETINE 20 MG TAB PO SCH (08:54)
[2016-07-09] MEDS: MAGNESIUM OXIDE 400 MG TAB PO SCH (08:55)
[2016-07-09] MEDS: POTASSIUM CHLORIDE 20 MEQ TABCR PO SCH (08:56)
[2016-07-09] MEDS: FUROSEMIDE INJ 40 MG in SYRINGE 0 ML IV SCH ×2 (08:58→17:02)
[2016-07-09] MEDS: ANASTROZOLE 1 MG TAB PO SCH (08:58)
[2016-07-09] MEDS: ENOXAPARIN 40 MG/0.4 ML SYR SQ SCH (08:59)
[2016-07-09] MEDS ORDERED: DILTIAZEM HCL 300 MG CAPCR PO SCH (09:00)
--- NOTE | 2016-07-09 09:41 | ECHOCARDIOGRAM REPORT ---
*NOTICE TO RECEIVING DEMOCRAT AGENCY This information is strictly Confidential and protected under [place] law. [place] law prohibits you from making any further disclosure of this information unless further disclosure is expressly permitted by the written consent of the person to whom it pertains or is authorized by law. A general authorization for the release of medical or other information is not sufficient for this purpose. Hospital accepts no responsibility if the information is made available to any other person, INCLUDING THE PATIENT. Interpretation Summary * Name: RAMSEY WU Study Date: 07/08/2016 02:24 PM BP: 136/78 mmHg * Patient Location: .2T\S\E222\S\1 HR: 103 * : 1955 (M/d/yyyy) Gender: Female Height: 65 in * Age: 60 yrs Ethnicity: CA Weight: 232 lb * Ordering Physician: Deny Michelle * Referring Physician: Self, Referred * Performed By: Philip Ward RDCS * * Reason For Study: CHF * BSA: 2.1 m2 * -- Conclusions -- * Left ventricular systolic function is severely reduced. * There is severe global hypokinesis of the left ventricle. * Ejection Fraction = 20-25%. * There is moderate mitral regurgitation. * There is moderate tricuspid regurgitation. Procedure Details * A complete two-dimensional transthoracic echocardiogram was performed (2D, M-mode, Doppler and color flow Doppler). * The study was technically difficult. * The study was technically difficult, but visualization was adequate with the administration of Definity ultrasound contrast. * A contrast injection of Definity was performed to improve assessment of LV function. * Contrast was injected into an intravenous site in the right arm. * One vial of Definity ultrasound contrast was diluted in normal saline to a total volume of 10 ml. A total of '3' ml of solution was administered during imaging. * Lot # [id number] of Definity utilized for procedure. * Expiration date 1JUN. * The attending nurse who injected the contrast agent was JASON Payan. Left Ventricle * The left ventricle is mildly dilated. * Left ventricular systolic function is severely reduced. * Ejection Fraction = 20-25%. * There is severe global hypokinesis of the left ventricle. Right Ventricle * The right ventricle is grossly normal size. * The right ventricular systolic function is normal as assessed by tricuspid annular plane systolic excursion (TAPSE) (normal >1.5 cm). Atria * The left atrium is moderately dilated. * Borderline right atrial enlargement. * There is no evidence of atrial septal defect, but resolution does not allow assessment for a patent foramen ovale. Mitral Valve * The mitral valve is grossly normal. * There is no mitral valve stenosis. * There is moderate mitral regurgitation. Tricuspid Valve * The tricuspid valve is not well visualized, but is grossly normal. * There is no tricuspid stenosis. * There is moderate tricuspid regurgitation. * Right ventricular systolic pressure is elevated at 40-50mmHg. Aortic Valve * The aortic valve is trileaflet. * The aortic valve opens well. * Aortic valve sclerosis mild, without significant aortic valvular stenosis. * No aortic regurgitation is present. Pulmonic Valve * The pulmonary valve is not well seen, but the Doppler examination is normal without significant regurgitation or stenosis. Great Vessels * The aortic root is normal size. * The pulmonary is not well visualized. Pericardium/Pleural * There is no pericardial effusion. Great Vessels * Dilated inferior vena cava with reduced collapsability with sniff indicates an elevated right atrial pressure of 15 mmHg Left Ventricular Diastolic Function * Diastolic dysfunction, Grade II (pseudonormalization pattern). MMode 2D Measurements and Calculations IVSd 1.2 cm IVSs 1.2 cm LVIDd 5.3 cm LVIDs 5.2 cm LVPWd 1.2 cm LVPWs 1.3 cm IVS/LVPW 0.93 FS 3.4 % EDV(Teich) 138.1 ml ESV(Teich) 127.5 ml EF(Teich) 7.7 % EDV(cubed) 152.8 ml ESV(cubed) 137.8 ml EF(cubed) 9.8 % % IVS thick 0 % % LVPW thick 6.5 % LV mass(C)d 262.3 grams LV mass(C)dI 124.5 grams/m\S\2 LV mass(C)s 260.0 grams LV mass(C)sI 123.4 grams/m\S\2 SV(Teich) 10.6 ml SI(Teich) 5.0 ml/m\S\2 SV(cubed) 15.0 ml SI(cubed) 7.1 ml/m\S\2 EPSS 1.7 cm Ao root diam 2.8 cm Ao root area 5.9 cm\S\2 ACS 1.6 cm LA dimension 4.8 cm asc Aorta Diam 2.9 cm LA/Ao 1.7 LVOT diam 1.8 cm LVOT area 2.4 cm\S\2 LVAd ap4 38.4 cm\S\2 LVLd ap4 8.0 cm EDV(MOD-sp4) 151.0 ml LVAs ap4 34.4 cm\S\2 LVLs ap4 7.6 cm ESV(MOD-sp4) 126.0 ml EF(MOD-sp4) 16.6 % LVAd ap2 39.0 cm\S\2 LVLd ap2 7.6 cm EDV(MOD-sp2) 165.0 ml LVAs ap2 31.4 cm\S\2 LVLs ap2 6.3 cm ESV(MOD-sp2) 130.0 ml EF(MOD-sp2) 21.2 % SV(MOD-sp4) 25.0 ml SI(MOD-sp4) 11.9 ml/m\S\2 SV(MOD-sp2) 35.0 ml SI(MOD-sp2) 16.6 ml/m\S\2 Doppler Measurements and Calculations MV E max vesta 124.4 cm/sec MV A max vesta 46.9 cm/sec MV E/A 2.7 MV dec time 0.11 sec Ao V2 max 105.5 cm/sec Ao max PG 4.5 mmHg Ao max PG (full) 2.8 mmHg ESTEPHANIA(V,A) 1.5 cm\S\2 ESTEPHANIA(V,D) 1.5 cm\S\2 LV V1 max PG 1.7 mmHg LV V1 max 65.2 cm/sec PA V2 max 70.8 cm/sec PA max PG 2.0 mmHg PI end-d vesta 166.6 cm/sec TR max vesta 297.1 cm/sec
[2016-07-09] MEDS: LORAZEPAM 2 MG/ML 1 ML VIAL IV PRN ×4 (10:02→23:15)
--- NOTE | 2016-07-09 12:41 | CARDIOLOGY PROGRESS NOTE ---
DATE: 07/09/2016 SUBJECTIVE: Mrs. Ojeda is resting comfortably in bed and nearly supine. Denies chest pain, but does note dyspnea with physical activity. Results of her echocardiogram were discussed in detail. The patient becomes tearful during our discussion. OBJECTIVE: VITAL SIGNS: Blood pressure is 110/77 with a regular pulse of 90. Respiratory rate is 20. The patient is afebrile at 36.7 degrees Celsius. Saturation is 94% on 2 liters nasal cannula. NECK: Supple with full carotid upstrokes. There are no obvious bruits. Jugular venous pressure is flat at 90 degrees. There is no thyromegaly. CARDIOVASCULAR: Reveals a regular rhythm with normal S1 and S2. No S3 or murmurs noted. LUNGS: Clear without rales, rhonchi, or wheezes. ABDOMEN: Obese without bruits. EXTREMITIES: Reveal intact radial artery pulses bilaterally. Trace pretibial edema is noted. DATA: CBC notes hemoglobin of 12.5, hematocrit 41.4, white count 13.7, platelet count 406,000. Electrolytes note a sodium of 139, potassium 4.3, chloride 102, bicarbonate 26, BUN 20, creatinine 1.1, glucose 155. Troponin I level have both been normal at 0.04 and 0.039. EKG this morning notes sinus rhythm with frequent PVCs. There is a left atrial abnormality and poor R-wave progression across the anterior precordium. Unchanged from prior tracings. secretary of police notes occasional PVCs. Echocardiogram notes severe left ventricular dysfunction with an ejection fraction of 20%-25%. There is global hypokinesis and dilatation of the left ventricle. Moderate mitral and tricuspid regurgitation is seen. IMPRESSION AND PLAN: 1. 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 No change in left ventricular function is noted. 2. Severe left ventricular dysfunction -- discussed changes in her medications with both the patient and Dr. Michelle at the bedside. We will discontinue diltiazem and start low dose carvedilol. Would also start low dose losartan and discontinue diltiazem. We should proceed with a cardiac catheterization to rule out ischemia as the cause of her left ventricular dysfunction. I suspect this could be a paraneoplastic syndrome as she had a normal nuclear stress testing in January and evidence of mild left ventricular dysfunction with ejection fraction 45%-50% at that time. 3. Moderate mitral regurgitation. 4. Moderate tricuspid regurgitation. 5. Frequent PVCs. 6. Hypertension. 7. Hypercholesterolemia. 8. Recurrent breast carcinoma - June 2016. 9. Acute diverticulitis with pericolic abscess - June 2016. MTDD
[2016-07-10] VITALS (14 sets, daily range): BP systolic 111–137; BP diastolic 67–94; PULSE 69–116; TEMP 36.5–37.2; O2SAT 92–97
[2016-07-10] MEDS: LORAZEPAM 2 MG/ML 1 ML VIAL IV PRN ×2 (01:27→11:12)
[2016-07-10] MEDS ORDERED: HEPARIN SOD (PORCINE) 1000 UNIT/ML 10 ML VIAL ONE (06:30)
[2016-07-10] MEDS ORDERED: NiCARDipine HCL INJ 2.5 MG/ML 10 ML AMP ONE (06:30)
[2016-07-10] MEDS ORDERED: FENTANYL CITRATE INJ 50 MCG/1 ML 2 ML VIAL ONE (06:31)
[2016-07-10] MEDS ORDERED: NITROGLYCERIN/D5W 100MCG/ML 20ML SYR ONE (06:31)
[2016-07-10] MEDS ORDERED: MIDAZOLAM HCL 1 MG/ML 2ML VIAL ONE ×2 (06:31→07:53)
[2016-07-10 06:44] LABS: BUN/CREATININE RATIO 16.6 (10-20); CALCIUM 8.5 mg/dl (8.5-10.1); CREATININE 1.1 mg/dl (0.60-1.20); POTASSIUM 3.8 mmol/L (3.5-5.1)
[2016-07-10] MEDS: INSULIN ASPART 100 UNITS/ML 3 ML PEN SC SCH ×4 (07:00→21:00)
--- NOTE | 2016-07-10 08:21 | Procedure Note ---
Pre-Mod Sedation Assessment General Date of Moderate Sedation: Jul 10, 2016. Vital Signs: Vital Signs Past 12 Hours Date Time Temp Pulse Resp B/P (MAP) Pulse Ox O2 Delivery O2 Flow Rate FiO2 07/10/16 08:11 103 19 132/86 93 Mask 6 07/10/16 04:15 Nasal Cannula 3.0 07/10/16 03:25 37.0 104 22 114/78 (90) 96 Nasal Cannula 3.0 07/10/16 00:00 Nasal Cannula 3.0 07/09/16 23:10 36.9 119 22 122/77 (92) 96 Nasal Cannula 3.0 Review Cardiovascular: regular rate, rhythm, + tachycardia Abdomen: normal bowel sounds, soft Lungs: lungs clear, + accessory muscle use, + rales Airway Class: III Pre-Sedation Airway Assessment Oral Cavity: WNL Able to Visualize Vocal Cords: No Short Thick Neck: Yes Hx of Sleep Apnea: No Smoking Status: Former Smoker Mallampati Classification: Class III ASA Classification: Class III Procedure Planning Contraindications-for Mod Sed: None Yes Notes The planned sedation has been discussed with the patient and consent obtained. I have identified the patient, determined the appropriateness of sedation and have assessed the patient immediately prior to the procedure. All medicine(s) and interventions are by my order.
--- NOTE | 2016-07-10 08:21 | Procedure Note ---
Post-Mod Sedation Assessment General Date of Moderate Sedation Jul 10, 2016. Vital Signs: Vital Signs Past 12 Hours Date Time Temp Pulse Resp B/P (MAP) Pulse Ox O2 Delivery O2 Flow Rate FiO2 07/10/16 08:11 103 19 132/86 93 Mask 6 07/10/16 04:15 Nasal Cannula 3.0 07/10/16 03:25 37.0 104 22 114/78 (90) 96 Nasal Cannula 3.0 07/10/16 00:00 Nasal Cannula 3.0 07/09/16 23:10 36.9 119 22 122/77 (92) 96 Nasal Cannula 3.0 Review - Discharge Criteria Vital Signs Stable: Yes Alert/Oriented/Conversant: Yes Returned to Baseline Mental St: Yes Nausea Absent/Minimal: Yes Pain/Discomfort/Absent/Minimal: Yes Normal/Baseline Respirations: Yes Active Bleeding?: No Pt Received D/C Instructions: N/A Prescriptions Given: None Specific Proced. D/C Criteria Distal Pulses Present (Cardiac: Yes Groin site assessed-Card Cath: N/A Voided Prior To Discharge: N/A Discharged Patients Adult Escort/Transportation: Yes
--- NOTE | 2016-07-10 08:51 | Cardiac Catheterization ---
Procedure Note Procedure Date Jul 10, 2016. Pre-Procedure Diagnosis Cardiomyopathy AUC Score 7 Post-Procedure Diagnosis Normal Coronary Arteries, Decreased LV Systolic Function, Elevated Intracardiac Pressures Procedure(s) Performed Coronary Angiography, Left Heart Cath, Right Heart Cath, Ultrasound Guided Vascular Access Die Inspector Jayy Consulting Analyst(s) Claude Estimated Blood Loss <10 Medication(s) Fentanyl, Heparin, Nitroglycerin, Versed, Lidocaine 1% Summary of Findings Indication: Severe LV dysfunction Access: Ultrasound guided 5Fr Right Radial Artery; Ultrasound guided 6Fr slender antecubital vein Catheters: 6Fr swan; 5Fr Salkum Findings: LM - Angiographically normal LAD - Large caliber vessel that wraps around apex. Luminal irregularities in proximal to mid segments. Circumflex - Angiographically normal. Gives off large OM2 which is angiographically normal RCA - Dominant, 20% proximal stenosis. Distal luminal irregularities in PDA RA 23 RV 63/23 PA 65/37 (50) PCW 35 LV 110/33 AoSat 91 PaSat 43 TPG 15 PVR 4.4 Wood Unit Thermo CO/CI 4.0/1.9 Janet CO/CI 3.2/1.5 Arterial Closure: TR Band Summary: 1. Essentially normal coronary arteries. Nonischemic cardiomyopathy. 2. Elevated biventricular filling pressures. Moderate to severe pulmonary hypertension. 3. Reduced cardiac output (Pa Sat 43%) Recommendations: Continue diuresis per Dr. Barkley Continue OK/Beta-jason Continue ASCVD risk factor modification. Hemodynamics Rest Ao: 109/76/90 Final Ao: 111/78/93 LV: 111/34 Recommendations Medical therapy and/or Counseling Specimens None Radiation Exposure (mGy) 1435 Contrast (mls) 50 Visi Fluids (cc crystalloids) 16 Drains none Anesthesia moderate (start 07:22 - 08:11) Procedural Complication(s) None Disposition PCU ACC Data Cardiac Status Clinical evaluation leading to the procedure CAD Presntation: Sx unlikely to be ischemic Anginal Classification: CCS I Heart Failure: NYHA Class: CCS IV Cardiogenic Shock w/in 24Hrs: No Cardiac Arrest w/in 24Hrs: No Imaging studies past 6 months: Yes Stress studies past 6 months: Yes Standard Exercise Stress Test: No Stress Echocardiogram: No Stress Testing w/SPECT MPI: Yes - Negative Cardiac CTA: No Coronary Anatomy Dominant: Right Left Main (% Stenosis): Normal LAD (% Stenosis): Normal Circumflex (% Stenosis): Normal R PDA (% Stenosis): Normal Diagnostic Physician's Name: Cr Hope MD Status: Elective Closure Device Percutaneous Entry Location: Radial Closure Device: Radial Band Recommendations: Medical therapy and/or Counseling Intraprocedure Events Significant Dissection: No Perforation: No
[2016-07-10] MEDS ORDERED: CARVEDILOL 3.125 MG TAB PO SCH (09:00)
[2016-07-10] MEDS: POTASSIUM CHLORIDE 20 MEQ TABCR PO SCH (09:07)
[2016-07-10] MEDS: LOSARTAN POTASSIUM 25 MG TAB PO SCH (09:07)
[2016-07-10] MEDS: FUROSEMIDE INJ 40 MG in SYRINGE 0 ML IV SCH ×2 (09:07→16:29)
[2016-07-10] MEDS: PAROXETINE 20 MG TAB PO SCH (09:08)
[2016-07-10] MEDS: MAGNESIUM OXIDE 400 MG TAB PO SCH (09:08)
[2016-07-10] MEDS: ENOXAPARIN 40 MG/0.4 ML SYR SQ SCH (09:10)
[2016-07-10] MEDS: ANASTROZOLE 1 MG TAB PO SCH (09:13)
[2016-07-10 09:46] LABS: ISTAT ARTERIAL BLOOD GAS HCO3 26 meq/L (19-24); ISTAT ARTERIAL BLOOD GAS PCO2 40 mmHg (35-46); ISTAT ARTERIAL BLOOD GAS PO2 61 mmHg (80-95); ISTAT ARTERIAL BLOOD GAS pH 7.42 (7.35-7.45); ISTAT CARBON DIOXIDE 27 mEq/l (24-31)
[2016-07-10 09:46] LABS: ISTAT ARTERIAL BLOOD GAS HCO3 30 meq/L (19-24); ISTAT ARTERIAL BLOOD GAS PCO2 48 mmHg (35-46); ISTAT ARTERIAL BLOOD GAS PO2 < 32 mmHg (80-95); ISTAT CARBON DIOXIDE 32 mEq/l (24-31)
--- NOTE | 2016-07-10 10:29 | CARDIOLOGY PROGRESS NOTE ---
DATE: 07/10/2016 SUBJECTIVE: Mrs. Ojeda is resting comfortably in bed without complaints of chest pain or dyspnea. She is able to lie completely supine without difficulty. Results of her cardiac catheterization were reviewed in detail. OBJECTIVE: VITAL SIGNS: Blood pressure is 137/84 with a regular pulse of 100. Respiratory rate is 20. The patient is afebrile at 36.8 degrees Celsius. Saturation is 96% on 3 liters nasal cannula. NECK: Supple with full carotid upstrokes. No carotid bruits. Jugular venous pressure is difficult to assess. CARDIOVASCULAR: Reveals a regular rhythm with normal S1 and S2. Heart sounds are distant. No obvious murmurs. No S3. LUNGS: Clear without rales, rhonchi or wheezes. ABDOMEN: Soft, nontender, without bruits. EXTREMITIES: Reveal intact radial artery pulses bilaterally. Occlusion band is noted on the right wrist. There is trace pretibial edema. DATA: Electrolytes note sodium of 140, potassium 3.8, chloride 102, bicarbonate 29, BUN 18, creatinine 1.1, glucose 149. EKG notes normal sinus rhythm with frequent PVCs and left atrial abnormality. There is poor R-wave progression across the anterior precordium, unchanged from prior tracings. Cardiac catheterization reveals normal coronary arteries with decreased left ventricular systolic function and elevated right heart pressures. IMPRESSION AND PLAN: 1. 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 We will plan to uptitrate those medications in the outpatient setting. 2. Nonischemic cardiomyopathy -- as above, the patient has essentially normal coronary arteries. As above, her carvedilol and losartan will be uptitrated in the outpatient setting. Diltiazem was discontinued. 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 3. Moderate mitral regurgitation. 4. Moderate tricuspid regurgitation. 5. Frequent premature ventricular contractions. 6. Hypertension -- controlled. 7. Hypercholesterolemia. 8. Recurrent breast carcinoma -- diagnosed 06/2016. She is scheduled for breast irradiation in a tangential fashion on Sunday. No need to postpone that appointment. 9. Acute diverticulitis with pericolic abscess -- 06/2016.
--- NOTE | 2016-07-10 17:53 | Progress Note ---
Subjective Date of Service: Jul 10, 2016. Subjective pt is tired and shakey after left heart cath, did get good news that no coronary intervention is needed, but no defined explanation for new more depressed EF did fall in afternoon, will prompt PT/OT evaluation I personally discussed case with Dr Dumont in Rad onc, will have courtesy notification and keep simulation scheduled for wednesday 07/12 anticipating discharge before that, if not will have go down from room Problem List Medical Problems: (1) CHF (congestive heart failure) Status: Acute (2) CHF exacerbation Status: Acute (3) Congestive heart failure Status: Acute (4) Diverticulitis of intestine with perforation and abscess Status: Acute (5) Elevated WBC count Status: Acute (6) Frequent PVCs Status: Acute Review of Systems Constitutional: + weakness, No fever, No chills Respiratory: + dyspnea on exertion, No cough, No shortness of breath, No dyspnea at rest Cardiac: No chest pain, No orthopnea, No edema Abdomen: No pain, No nausea Musculoskeletal: No joint pain, No muscle pain Neurologic: + weakness, No memory loss, No paralysis Psychiatric: + depression symptoms, + anxiety Objective Vital Signs Date Time Temp Pulse Resp B/P (MAP) Pulse Ox O2 Delivery O2 Flow Rate FiO2 07/10/16 04:15 Nasal Cannula 3.0 07/10/16 03:25 37.0 104 22 114/78 (90) 96 Nasal Cannula 3.0 07/10/16 00:00 Nasal Cannula 3.0 07/09/16 23:10 36.9 119 22 122/77 (92) 96 Nasal Cannula 3.0 07/09/16 20:02 107 20 97 Nasal Cannula 2.0 Mechanical Ventilator 07/09/16 20:00 Nasal Cannula 2.0 07/09/16 19:46 36.6 107 20 115/76 (89) 97 Nasal Cannula 2.0 07/09/16 16:12 Nasal Cannula 2.0 07/09/16 14:56 36.9 106 19 94/54 (67) 93 Nasal Cannula 2.0 07/09/16 12:11 36.4 110 20 103/63 (76) 98 Nasal Cannula 2.0 07/09/16 12:00 Nasal Cannula 2.0 07/09/16 08:00 Room Air 07/09/16 08:00 Room Air Physical Exam General Appearance: WD/WN, + mild distress Neck: supple, no JVD Respiratory/Chest: chest non-tender, lungs clear, no accessory muscle use Cardiovascular: regular rate, rhythm, + systolic murmur Abdomen: normal bowel sounds, non tender, soft Extremities: no calf tenderness, + pedal edema (trace) Neurologic/Psychiatric: alert, oriented x 3 Laboratory Results Last 24 Hours Test 07/09/16 11:08 07/09/16 15:57 07/09/16 20:41 07/10/16 05:36 Bedside Glucose 189 mg/dl 96 mg/dl 147 mg/dl Sodium Level 140 mmol/L Potassium Level 3.8 mmol/L Chloride Level 102 mmol/L Carbon Dioxide Level 29 mmol/L Anion Gap 9.0 mmol/L Blood Urea Nitrogen 18 mg/dl Creatinine 1.10 mg/dl Est Creatinine Clear Calc Drug Dose 63.2 ml/min Estimated GFR () 62.8 Estimated GFR (Non- 54.1 BUN/Creatinine Ratio 16.6 Random Glucose 149 mg/dl Calcium Level 8.5 mg/dl Test 07/10/16 06:06 Bedside Glucose 150 mg/dl Assessment and Plan 60-year-old female here with recent diagnosis of recurrent breast carcinoma with acute onset shortness of breath and history of mixed systolic and diastolic heart failure. acute on systolic heart failure with baseline of chronic systoic and diastolic heart failure. echocardiogram shows dramatic global reduction in systolic function Lasix 40 mg b.i.d. no change in renal function, Cardiology consult following, stop diltiazem 07/09 , start coreg and losartan 07/10. titrate coreg 07/10 pm 07/10 LHC negative for ischemic workup CTA did rule out PE Anxiety and depression,crying due to significant illness, paroxetine continuing p.r.n. Ativan. breast cancer, continue Arimidex, CTA shows chest wall seroma at surgical site, request XRT will continue to schedule simulation for XRT this 07/12 diabetes, good control with Glucophage being held Insulin sliding scale with diabetic diet, low sodium diet will be continued. This patient is a full code. Offered Psyche consult pt refused
[2016-07-10] MEDS: CARVEDILOL 6.25 MG TAB PO SCH (20:37)
[2016-07-11] VITALS: BP 94/57; PULSE 88; TEMP 36.6; O2SAT 99
[2016-07-11 02:43] VITALS: BP 97/63; PULSE 100; TEMP 36.5; O2SAT 96
[2016-07-11] MEDS: INSULIN ASPART 100 UNITS/ML 3 ML PEN SC SCH ×4 (07:00→20:23)
[2016-07-11 07:15] LABS: HEMATOCRIT 39.6 % (37-47); MEAN CELL VOLUME 94.1 fL (80-100); MEAN CORPUSCULAR HGB CONC 30.8 g/dl (32-36); MEAN PLATELET VOLUME 9.7 fL (7.4-10.4); PLATELET COUNT 309 K/uL (130-400); RED BLOOD COUNT 4.21 M/uL (4.2-5.4); WHITE BLOOD COUNT 10.82 K/uL (4.8-10.8)
[2016-07-11 07:31] VITALS: BP 124/83; PULSE 96; TEMP 36.9; O2SAT 97
[2016-07-11 07:50] LABS: BUN/CREATININE RATIO 18.5 (10-20); CALCIUM 8.6 mg/dl (8.5-10.1); CREATININE 0.9 mg/dl (0.60-1.20); POTASSIUM 3.6 mmol/L (3.5-5.1)
[2016-07-11] MEDS: CARVEDILOL 6.25 MG TAB PO SCH ×2 (07:57→20:24)
[2016-07-11] MEDS: PAROXETINE 20 MG TAB PO SCH (07:58)
[2016-07-11] MEDS: POTASSIUM CHLORIDE 20 MEQ TABCR PO SCH ×3 (07:58→20:24)
[2016-07-11] MEDS: MAGNESIUM OXIDE 400 MG TAB PO SCH (07:58)
[2016-07-11] MEDS: FUROSEMIDE INJ 40 MG in SYRINGE 0 ML IV SCH ×2 (07:59→17:17)
[2016-07-11] MEDS: LOSARTAN POTASSIUM 25 MG TAB PO SCH (07:59)
[2016-07-11] MEDS: ENOXAPARIN 40 MG/0.4 ML SYR SQ SCH (07:59)
[2016-07-11] MEDS: ANASTROZOLE 1 MG TAB PO SCH (08:00)
--- NOTE | 2016-07-11 09:35 | CARDIOLOGY PROGRESS NOTE ---
DATE: 07/11/2016 SUBJECTIVE: Ms. Ojeda is resting comfortably in the bedside chair without complaints of chest pain or dyspnea. She is anxious for hospital discharge. OBJECTIVE: VITAL SIGNS: Blood pressure 124/83 with a regular pulse of 90. Respiratory rate is 16. The patient is afebrile at 36.9 degrees Celsius. Saturation is 97% on 2 liters nasal cannula. NECK: Supple with full carotid upstrokes. There are no carotid bruits. Jugular venous pressure is flat at 90 degrees. There is no thyromegaly. CARDIOVASCULAR: Reveals a regular rhythm with normal S1 and S2. Heart sounds are distant. No obvious murmurs. No S3. LUNGS: Clear without rales, rhonchi, or wheezes. ABDOMEN: Soft and nontender without bruits. EXTREMITIES: Reveal trace pretibial edema bilaterally. LABORATORY DATA: CBC notes a hemoglobin of 12.2, hematocrit 39.6, white count 10.8, and platelet count 309,000. Electrolytes note a sodium of 141, potassium 3.6, chloride 102, bicarbonate 31, BUN 17, creatinine 0.9, and glucose 135. mail censor is benign. IMPRESSION AND PLAN: 1. 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 Tolerating low dose carvedilol and losartan. We will up titrate these medications in the outpatient setting. 2. Nonischemic cardiomyopathy -- cardiac catheterization yesterday noted essentially normal coronary arteries. 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 3. Moderate mitral regurgitation. 4. Moderate tricuspid regurgitation. 5. Frequent premature ventricular contractions. 6. Hypertension -- controlled. 7. Hypercholesterolemia. 8. Recurrent breast carcinoma -- diagnosed in June 2016. Scheduled to undergo breast radiation in a tangential fashion tomorrow. Would proceed as scheduled. 9. Acute diverticulitis -- pericolic abscess in June 2016.
[2016-07-11 11:37] VITALS: BP 123/80; PULSE 94; TEMP 36.9; O2SAT 95
[2016-07-11 15:32] VITALS: BP 123/74; PULSE 48; TEMP 37; O2SAT 97
[2016-07-11 19:18] VITALS: BP 109/68; PULSE 58; TEMP 36.4; O2SAT 97
[2016-07-11] MEDS: LORAZEPAM 2 MG/ML 1 ML VIAL IV PRN (20:25)
--- NOTE | 2016-07-11 20:29 | Progress Note ---
Subjective Date of Service: Jul 11, 2016. Subjective Pt evaluation today including: conversation w/ patient, physical exam, chart review, lab review, review of studies (echo, cardiac cath), conversation w/ financial services consultant (cardiology), review of inpatient medication list Pain: denies abd pain PO Intake: normal, eating most of her meals Voiding: no voiding problems Tele overnight with PVCs and intermittent bigeminy. No a. fib, etc. She is very sad about everything going on - her breast ca, recent admission for diverticulitis, the CHF, etc. She denies overt depression, however. Denies orthopnea Denies PND Minimal dyspnea on exertion No cough Problem List Medical Problems: (1) CHF (congestive heart failure) Status: Acute (2) CHF exacerbation Status: Acute (3) Congestive heart failure Status: Acute (4) Diverticulitis of intestine with perforation and abscess Status: Acute (5) Elevated WBC count Status: Acute (6) Frequent PVCs Status: Acute Review of Systems Constitutional: No fever, No chills Respiratory: No cough, No wheezing Cardiac: No chest pain, No orthopnea, No PND, No edema Abdomen: No pain, No nausea, No vomiting, No diarrhea, No GI bleeding Objective Vital Signs Date Time Temp Pulse Resp B/P (MAP) Pulse Ox O2 Delivery O2 Flow Rate FiO2 07/11/16 19:18 36.4 58 18 109/68 (82) 97 Nasal Cannula 1.5 07/11/16 16:00 Nasal Cannula 1.5 07/11/16 15:32 37.0 48 18 123/74 (90) 97 Nasal Cannula 1.5 07/11/16 12:00 Nasal Cannula 1.5 07/11/16 11:37 36.9 94 18 123/80 (94) 95 Nasal Cannula 2.0 07/11/16 08:00 Nasal Cannula 2.0 07/11/16 07:31 36.9 96 16 124/83 (97) 97 Nasal Cannula 2.0 07/11/16 04:00 Nasal Cannula 2.0 07/11/16 02:43 36.5 100 16 97/63 (74) 96 Nasal Cannula 2.0 07/10/16 23:59 Nasal Cannula 2.0 07/10/16 23:23 36.5 81 16 116/75 (89) 97 Nasal Cannula 2.0 Physical Exam General Appearance: no apparent distress ENT: pharynx normal Neck: no JVD Respiratory/Chest: no respiratory distress, no accessory muscle use, + rales ( scant, bases) Cardiovascular: regular rate, rhythm, no gallop, + systolic murmur (1/6 LSB), + extra beats Abdomen: normal bowel sounds, non tender, soft, no organomegaly Extremities: + pedal edema (trace b/l ) Neurologic/Psychiatric: alert, oriented x 3, + depressed affect Skin: no rash Laboratory Results Last 24 Hours Test 07/10/16 20:41 07/11/16 06:50 07/11/16 07:13 07/11/16 10:59 Bedside Glucose 148 mg/dl 125 mg/dl 162 mg/dl White Blood Count 10.82 K/uL Red Blood Count 4.21 M/uL Hemoglobin 12.2 g/dL Hematocrit 39.6 % Mean Corpuscular Volume 94.1 fL Mean Corpuscular Hemoglobin 29.0 pg Mean Corpuscular Hemoglobin Concent 30.8 g/dl RDW Standard Deviation 50.4 fL RDW Coefficient of Variation 14.9 % Platelet Count 309 K/uL Mean Platelet Volume 9.7 fL Sodium Level 141 mmol/L Potassium Level 3.6 mmol/L Chloride Level 102 mmol/L Carbon Dioxide Level 31 mmol/L Anion Gap 8.0 mmol/L Blood Urea Nitrogen 17 mg/dl Creatinine 0.90 mg/dl Est Creatinine Clear Calc Drug Dose 77.5 ml/min Estimated GFR () 80.0 Estimated GFR (Non- 69.0 BUN/Creatinine Ratio 18.5 Random Glucose 135 mg/dl Calcium Level 8.6 mg/dl Test 07/11/16 15:55 Bedside Glucose 145 mg/dl Assessment and Plan 60yo female with: 1. acute/chronic systolic/diastolic CHF - approaching euvolemia. o2 requirement suggests probably some element of residual edema. will continue IV lasix today; repeat weight and labs in am. cont BB, ARB. 2. recent sigmoid diverticulitis complicated by abscess - clinically resolved. Off abx. eating fine. no GI symptoms. 3. recurrent breast ca - to have simulation tomorrow for initiation of radiation therapy. Cont arimedex. 4. T2DM - controlled with minimal use of novolog sliding scale. 5. DVT proph - lovenox 40mg daily. 6. chronic steroid use for urticaria - prednisone 5mg daily. 7. GI proph - really should be on PPI due to prednisone use. Will d/w patient. 8. anxiety with acute stress - consider increase in paxil. Will d/w patient. cleared by PT, OT for home wean O2 as tolerated left message for sister on voicemail home tomorrow after radiation simulation? Continued [facility] stay due to: multiple IV medications needed Discharge planning: home
[2016-07-12] VITALS (7 sets, daily range): BP systolic 91–146; BP diastolic 57–81; PULSE 54–88; TEMP 36.6–36.9; O2SAT 93–99
[2016-07-12] MEDS: INSULIN ASPART 100 UNITS/ML 3 ML PEN SC SCH ×2 (07:00→12:21)
[2016-07-12] MEDS: ENOXAPARIN 40 MG/0.4 ML SYR SQ SCH (07:37)
[2016-07-12] MEDS: POTASSIUM CHLORIDE 20 MEQ TABCR PO SCH (07:37)
[2016-07-12] MEDS: LOSARTAN POTASSIUM 25 MG TAB PO SCH (07:38)
[2016-07-12] MEDS: CARVEDILOL 6.25 MG TAB PO SCH (07:38)
[2016-07-12] MEDS: PAROXETINE 20 MG TAB PO SCH (07:38)
[2016-07-12] MEDS: MAGNESIUM OXIDE 400 MG TAB PO SCH (07:38)
[2016-07-12] MEDS: FUROSEMIDE INJ 40 MG in SYRINGE 0 ML IV SCH (07:39)
[2016-07-12] MEDS: ANASTROZOLE 1 MG TAB PO SCH (07:40)
[2016-07-12 07:48] LABS: INR 1.3 (0.9-1.1); PROTHROMBIN TIME (PATIENT) 14.1 SECONDS (9.0-12.0)
[2016-07-12 08:24] LABS: BUN/CREATININE RATIO 16.4 (10-20); CREATININE 1.1 mg/dl (0.60-1.20); MAGNESIUM 2.2 mg/dl (1.8-2.4); POTASSIUM 4.4 mmol/L (3.5-5.1)
[2016-07-12 08:40] LABS: CALCIUM 8.9 mg/dl (8.5-10.1)
--- NOTE | 2016-07-12 09:39 | CARDIOLOGY PROGRESS NOTE ---
DATE: 07/12/2016 SUBJECTIVE: Ms. Ojeda is resting comfortably in bed without complaints of chest pain or dyspnea. She is anxious for hospital discharge. She was able to sleep supine last evening. OBJECTIVE: VITAL SIGNS: Blood pressure 124/63 with a regular pulse of 55. Respiratory rate is 18. The patient is afebrile at 36.8 degrees Celsius. Saturation is 96% on room air. NECK: Supple with full carotid upstrokes. No obvious bruits. Jugular venous pressure is flat at 90 degrees. There is no thyromegaly. CARDIOVASCULAR: Reveals a regular rhythm with normal S1 and S2. Heart sounds are distant. No obvious murmurs. No S3. LUNGS: Clear without rales, rhonchi, or wheezes. ABDOMEN: Soft and nontender without bruits. EXTREMITIES: Reveal intact radial artery pulses bilaterally. Trace pretibial edema is noted. LABORATORY DATA: Electrolytes note a sodium of 140, potassium 4.4, chloride 103, bicarb 29, BUN 18, creatinine 1.1, and glucose 148. Weight is 100.8 kg, down 4.8 kg. IMPRESSION AND PLAN: 1. Acute on chronic combined congestive heart failure - the patient is currently compensated. Tolerating low dose carvedilol and losartan. Those medications will be titrated in the outpatient setting. 2. Nonischemic cardiomyopathy -- I suspect this could be a paraneoplastic syndrome. 3. Moderate mitral regurgitation. 4. Moderate tricuspid regurgitation. 5. Frequent premature ventricular contractions. 6. Hypertension. 7. Hypercholesterolemia. 8. Recurrent breast carcinoma -- diagnosed in June 2016. Scheduled to start radiation therapy today. 9. Acute diverticulitis -- with pericolic abscess in June 2016.
[2016-07-12] MEDS: LORAZEPAM 2 MG/ML 1 ML VIAL IV PRN (15:10)
[2016-07-12] MEDS ORDERED: METF-384 PO (15:27)
[2016-07-12] MEDS ORDERED: CRG625 PO (15:27)
[2016-07-12] MEDS ORDERED: CZR25 PO (15:27)
[2016-07-12] MEDS ORDERED: PARO30TA3 PO (15:27)
[2016-07-12] MEDS ORDERED: FRS/40 PO (15:27)
--- NOTE | 2016-07-12 16:47 | Discharge Instructions ---
Discharge Instructions Date of Service Jul 12, 2016. Admission Reason for Admission: Congestive Heart Failure Discharge Discharge Diagnosis / Problem: Congestive Heart Failure Discharge Goals Goal(s): Learn about illness, Diagnostic testing, Therapeutic intervention Activity Recommendations Activity Limitations: as noted below ACTIVITY RECOMMENDATIONS following your recent heart catheterization: Excess manipulation of the RIGHT wrist should be avoided for the next 24-48 hours. *No lifting over 2 pounds (approximately a 1/2 gallon of milk) with the utilized arm for 24 hours. *Keep the site of the procedure covered with a bandage for 24 hours. *You may shower at this time but do not take a tub bath or submerge the puncture site in water for the next 3 days. *Do not operate any motorized equipment for 3 days. SPECIAL CARE INSTRUCTIONS: The site may be slightly bruised and sore following your procedure. Should any of the following occur, contact the Dr. who performed your procedure. 1. Redness/inflammation, swelling, chills, or fever, or colored drainage at procedure site within 3-7 days after your procedure. 2. Coldness, discoloration, ongoing numbness, severe pain, or swelling. Expect mild tingling of hand and tenderness at the puncture site for up to three days. If this persists beyond three days, or other symptoms develop, notify the Dr. who performed your procedure. BLEEDING: If the procedure site on your wrist begins to bleed, do not panic 1. Place 1 or 2 fingers firmly just slightly above the insertion site to stop the bleeding. You may be able to feel your pulse as you hold pressure. 2. Lift your finger after 5 minutes to see if the bleeding has stopped. 3. Once the bleeding has stopped, gently wipe the wrist area clean with a bandage. * If the bleeding from your wrist does not stop after 10 minutes, or if there is a large amount of bleeding or spurting, call 911 (do not drive yourself to the hospital). SKIN IRRITATION: * You may experience some redness and/or swelling in the area where radiation was administered. If any skin irritation occurs, please contact your family physician. . Instructions / Follow-Up Instructions / Follow-Up From Dr. Esteban Manjarrez 1. Call your Primary Care doctor or shredder operator if any of the following symptoms or problems start or get worse: * Shortness of breath or difficulty breathing * Wake up at night short of breath * Chest pain * Cough * Swelling of your hands, feet, or legs * More fatigued or tired with your normal activity * Palpitations - sudden fast heart beats WEIGHT * Weigh yourself every morning after using the bathroom. * Use the same scale. * Wear the same amount of clothing. * Write your weight down on a chart. * Call your doctor if you gain more than 2-3 pounds in 1-2 days. MEDICATIONS * Use this discharge instruction sheet for medication instructions. * Take your medications at the time your doctor ordered. * Do not skip a dose of your medicines. * If you miss a dose of medicine, take it as soon as possible, but DO NOT DOUBLE A DOSE. * Read your medicine information when you get home. * Know all of the side effects of your medicine. If in doubt, ask your pharmacist * Call your Primary Care doctor's office if you have any side effects. * Be sure all of your doctors know what medicine and herbs you take (including cold, flu, and herbal medicine). Take the following with you to your follow-up doctor appointments: * Weight Chart * Medication List * List of questions Do not drink excessive alcohol, beer or wine. 2. congestive heart failure medications - * coreg (carvedilol) 6.25mg twice a day * lasix 40mg every morning * losartan 25mg every morning * STOP your diltiazem (cardizem) 3. If you do in fact gain more than 2-3 pounds in 1-2 days please DOUBLE your lasix to 40mg every morning and 40mg every afternoon. If you have to increase lasix please contact the shredder operator right away. 4. Diabetes - * during your stay we did not give you your metformin and your blood sugars were under excellent control * at this time I would recommend CUTTING the dose of your metformin to 500mg once daily with your breakfast * it is possible you may not even need this small dose 5. anxiety and depression - * please increase your paxil to 30mg once daily; a new prescription was sent to [facility] for you * you may also take the as needed medication (clonazepam) for anxiety as prescribed by your family doctor * do NOT take both ativan and clonazepam together * do NOT drink alcohol while taking ativan, clonazepam, or drugs similar to them * do NOT drive a car while taking ativan or clonazepam 6. Keep your appointments for your radiation treatments as scheduled. 7. See Dr. Barkley's office within 1 week; appointment is already scheduled. 8. See Dr. Telles within 1 week to address your anxiety and any other needs. Return to [facility] with any recurrent abdominal pain, worsening breathing, excessive weight gain, chest pain, fever over 100.5 degrees, etc. Current Hospital Diet Patient's current hospital diet: Low Sodium Diet (2gm Na) Discharge Diet Recommended Diet: Low Sodium Diet (2gm Na), Diabetes Type 2 Diet Fluid Restriction: 1500 ml (6 cups) Procedures Procedures Performed: echocardiogram - ejection fraction of 20-25% cardiac catheterization showing minimal plaque build-up in your coronary arteries Pending Studies Studies pending at discharge: no Medical Emergencies . Who to Call and When: Call 911 or go to the Emergency Room if: * If at any time you feel your situation is an emergency * You have tightness or pain in your chest that does not go away with rest or Nitroglycerin * You are very short of breath even with rest . Non-Emergent Contact Non-Emergency issues call your: Application Infrastructure Engineer Call Non-Emergent contact if: temperature is above 100.5, your pain is not controlled, your pain is worsening, your pain is concerning you, wound has increased drainage, wound has increased redness, wound has increased pain, you have any medication questions 1. you gain more than 2-3 pounds in 1-2 days 2. you are experiencing worsening shortness of breath, chest pains, swelling in your legs or abdomen, etc. . . "Provider Documentation" section prepared by Perez Orellana. . VTE Core Measure Inpt VTE Proph given/why not?: Enoxaparin (Lovenox)SQ
--- NOTE | 2016-07-18 12:17 | Discharge Summary ---
Discharge Summary Date of Service Jul 18, 2016. Discharge Summary Admission Date: Jul 08, 2016 at 10:24 Discharge Date: Jul 12, 2016 Discharge Disposition: Home with services Principal Diagnosis: acute/chronic systolic/diastolic CHF Problems/Secondary Diagnoses: 1. acute hypoxic respiratory failure 2nd to CHF - resolved 2. recent sigmoid diverticulitis complicated by abscess - clinically resolved 3. recurrent breast cancer 4. T2DM 5. chronic steroid use for urticaria 6. anxiety disorder with acute stress and depression Immunizations: History of Tetanus Vaccine?: APPROX 10 YRS AGO History of Pneumococcal: No History of Hepatitis B Vaccine: YES UNKNOWN DATE Procedures: 1. echocardiogram: * -- Conclusions -- * Left ventricular systolic function is severely reduced. * There is severe global hypokinesis of the left ventricle. * Ejection Fraction = 20-25%. * There is moderate mitral regurgitation. * There is moderate tricuspid regurgitation. * Grade II diastolic dysfunction. 2. cardiac catheterization - Cr Hope MD Findings: LM - Angiographically normal LAD - Large caliber vessel that wraps around apex. Luminal irregularities in proximal to mid segments. Circumflex - Angiographically normal. Gives off large OM2 which is angiographically normal. RCA - Dominant, 20% proximal stenosis. Distal luminal irregularities in PDA. 3. CTA chest - IMPRESSION: 1. No evidence for pulmonary embolus limitations as described above. 2. Interval progression of the moderate pulmonary edema and small bilateral pleural effusions. 3. Stable 7 mm subpleural nodular density within the lingula. 3. Mediastinal and bilateral hilar lymphadenopathy which is slightly progressed. There is also a 7 mm left internal mammary lymph node. This could be reactive or due to the pulmonary edema. However, one month chest CT follow up is recommended to ensure resolution. 5. Interval resection of the left anterior chest wall mass. There is a 12 x 11 x 4 cm left anterior chest wall subcutaneous fluid collection. This favors a postoperative seroma. An old hematoma or abscess could also have a similar appearance in the appropriate clinical setting. Consultations: cardiology - Jim Barkley MD Medication Reconciliation New Medications: Carvedilol (Carvedilol) 6.25 Mg Tab 6.25 MG PO BID, #60 TAB 2 Refills for your heart Losartan Potassium (Losartan Potassium) 25 Mg Tab 25 MG PO QAM, #30 TAB 2 Refills for your heart Changed Medications: Metformin Hcl (Glucophage) 1,000 Mg Tab 500 MG PO qam with breakfast, #30 2 Refills (Changed from: 1000 MG; BID; 60; Refills: ) Paroxetine HCl (Paroxetine) 30 Mg Tab 30 MG PO DAILY, #30 TAB 2 Refills (Changed from: Paroxetine (Paroxetine HCl) 20 Mg Tab 20 Mg PO QAM #30 DOSE Ref 6 NS) brand necessary Continued Medications: Acetaminophen (Tylenol) 500 Mg Tab 1000 MG PO Q6 PRN for Pain, TAB Anastrozole (Arimidex) 1 Mg Tab 1 TAB PO DAILY for 90 Days, #90 TAB 1 Refill Cholecalciferol (Vitamin D) 1,000 Unit Tab 1000 UNITS PO QAM Furosemide (Lasix) 40 Mg Tab 40 MG PO QAM, #30 TAB 2 Refills (This prescription has been renewed) Lorazepam (Ativan) 0.5 Mg Tab 0.5 MG PO TID PRN for Anxiety/Insomnia, TAB Magnesium Oxide (Mag-Ox) 400 Mg Tab 400 MG PO DAILY, TAB Multivitamin (Multivitamin) Tab 1 TAB PO QAM, TAB Potassium Chloride (Potassium Chloride ER) 20 Meq Tab 20 MEQ PO QAM Prednisone (Prednisone) 5 Mg Tab 5 MG PO QAM, TAB Discontinued Medications: Diltiazem Hcl Extended Release (Diltiazem Hcl) 300 Mg Cap 300 MG PO QAM Discharge Exam Physical Exam: General Appearance: no apparent distress, + obese ENT: pharynx normal Neck: no JVD Respiratory/Chest: lungs clear, no respiratory distress, no accessory muscle use Cardiovascular: regular rate, rhythm, no gallop, normal peripheral pulses, + systolic murmur (1/6 LSB) Abdomen / GI: normal bowel sounds, non tender, soft, no organomegaly Extremities: no pedal edema Neurologic/Psychiatric: alert, oriented x 3, + depressed affect Skin: + pertinent finding (palmar erythema ) Hospital Course HISTORY OF PRESENT ILLNESS: Very pleasant 60yo female with recent hospitalization for diverticulitis complicated by abscess formation as well as discovery of recurrent breast cancer who presented with complaints of progressive shortness of breath. This had been going on for several days prior to presentation. She stated she thought it was just anxiety causing her to be short of breath. When she presented to the Emergency Department she was found to be hypoxic on room air with O2 saturation of 88%. The patient was seen and evaluated and had chest x-ray findings of congestive heart failure. She was given intravenous Lasix with improvement in symptoms. HOSPITAL COURSE: The patient underwent repeat echocardiogram which showed EF of 20-25%. This was a marked drop-off from her previous echocardiogram in 2016 which demonstrated EF of 40-45%. She was seen in consult by Dr. Jim Barkley, her primary assembly instructions writer, and the following were recommended - 1. discontinuation of her cardizem in snehal of coreg 2. addition of losartan She was aggressively diuresed with improvement in all pulmonary symptoms. O2 was weaned off, and two-step oxygen test on day of discharge did NOT demonstrate a need for ambulatory oxygen. Discharge weight was about 100.5 kg. To rule out ischemic cardiomyopathy contributing to her CHF she also underwent cardiac catheterization by Dr. Cr Hope. This showed minimal luminal irregularities. The exact etiology of her cardiomyopathy at time of discharge remains unknown. She was ultimately transitioned over to oral lasix and will take 40mg every morning after discharge. She was instructed on the importance of daily weights, fluid/salt restriction, etc. All other medical problems remained stable while hospitalized. On the day of discharge she underwent her radiation simulation by oncology for her upcoming breast cancer radiation treatments. Also of note she had NO symptoms of diverticulitis and tolerated a diet without difficulty. Ms. Ojeda was very anxious and tearful during her stay because of her mounting medical problems (recurrent breast cancer, recent diverticulitis, CHF, etc). She was given supportive therapy, advised to increase her paxil to 30mg daily, and to consider counseling and/or support groups after discharge. Lastly, it was noted that Ms. Ojeda had palmar erythema on physical exam. Her INR on two occasions was 1.3 without a specific etiology. She will need a repeat INR after discharge to ensure stability. I am unclear if she has underlying liver dysfunction. Follow-up for these issues will be needed. Total Time Spent: Greater than 30 minutes This includes examination of the patient, discharge planning, medication reconciliation, and communication with other providers. Discharge Instructions Please refer to the electronic Patient Visit Report (Discharge Instructions) for additional information. Follow-Up [facility]iology - SundayJuly 18 [address] Barkley/ANIL Vega Additional Copies To Raul Peguero M.D.; Jim Barkley M.D.; Armand Kearney M.D.
[2016-08-14] MEDS ORDERED: METF1TAB53 PO (10:41)
[2016-08-14] MEDS ORDERED: CZR25 PO (10:41)
[2016-08-14] MEDS ORDERED: PARO30TA3 PO (10:41)
[2016-08-14] MEDS ORDERED: CRG625 PO (10:41)
[2016-08-14] MEDS ORDERED: FRS/40 PO (10:41)
[2016-08-15] MEDS ORDERED: CARV25TA PO (17:01)
[2016-09-18] MEDS ORDERED: PHEN-876 PO (13:09)
[2016-09-18] MEDS ORDERED: NITR1CAP32 PO (13:09)
[2016-10-25] MEDS ORDERED: LOSA1TAB PO (15:15)
== END 2016-07-12 17:15 | disposition home health service (06) | DRG 287 ==
LOC: EDBD 07:48 → EDSEX 07:48 → C.EDA 07:49 → EEVIPCON 07:49 → ENRESERV 10:18 → C.2T 10:24
PROVIDERS: ADMIT Internal Medicine; ATTEND Internal Medicine
PROC: 4A023N8 Measurement of Cardiac Sampling and Pressure, Bilateral, Percutaneous Approach (ICD-10-PCS; principal; 2016-07-10 07:00)
PROC: B211Y10 Fluoroscopy of Multiple Coronary Arteries using Other Contrast, Laser Intraoperative (ICD-10-PCS; principal; 2016-07-10 07:00)
DX: I50.43 Acute on chronic combined systolic (congestive) and diastolic (congestive) heart failure (principal); I42.9 Cardiomyopathy, unspecified; I27.2 Other secondary pulmonary hypertension; C50.812 Malignant neoplasm of overlapping sites of left female breast; R09.02 Hypoxemia; E11.9 Type 2 diabetes mellitus without complications; F41.9 Anxiety disorder, unspecified; F32.9 Major depressive disorder, single episode, unspecified; I11.0 Hypertensive heart disease with heart failure; Z51.81 Encounter for therapeutic drug level monitoring; Z79.899 Other long term (current) drug therapy; Z79.84 Long term (current) use of oral hypoglycemic drugs; Z79.52 Long term (current) use of systemic steroids; Z90.13 Acquired absence of bilateral breasts and nipples; Z87.01 Personal history of pneumonia (recurrent); Z87.19 Personal history of other diseases of the digestive system; Z87.891 Personal history of nicotine dependence; Z80.3 Family history of malignant neoplasm of breast; Z82.49 Family history of ischemic heart disease and other diseases of the circulatory system

== ENCOUNTER → 2016-07-15 | Outpatient (CLI) | payer OTHER ==
[~2016-07-15] MED LIST changes: +CARV25TA PO; +CRG625 PO; +CZR25 PO; -DILT300C35 PO; +LOSA1TAB PO; +METF1TAB53 PO; +NITR1CAP32 PO; +PARO30TA3 PO; +PHEN-876 PO; -PXL20 PO
[2016-07-15 10:39] LABS: BLOOD UREA NITROGEN 15 mg/dl (7-18); BUN/CREATININE RATIO 12.7 (10-20); CALCIUM 8.7 mg/dl (8.5-10.1); CARBON DIOXIDE 27 mmol/L (21-32); CHLORIDE 103 mmol/L (98-107); GLUCOSE 170 mg/dl (70-99); PHOSPHORUS 3.3 mg/dl (2.5-4.9); POTASSIUM 4.3 mmol/L (3.5-5.1); SODIUM 141 mmol/L (136-145)
== END | disposition home or self-care (01) ==
LOC: C.LAB 09:46
PROVIDERS: ATTEND Internal Medicine Interventional Cardiology
DX: Z98.890 Other specified postprocedural states (principal)

== ENCOUNTER → 2016-07-24 | Outpatient (CLI) | payer OTHER ==
--- NOTE | 2016-07-24 08:14 | DIAGNOSTIC IMAGING REPORT ---
ABDOMEN AND PELVIS CT WITHOUT CONTRAST CT DOSE: 955.17 mGycm HISTORY: Diverticulitis diverticulitis TECHNIQUE: Multiaxial CT images of the abdomen and pelvis were performed without contrast. COMPARISON STUDY: 06/30/2016 FINDINGS: Small bilateral pleural effusions unchanged. Liver spleen and pancreas are unremarkable. Moderate fatty replacement of the pancreas. Kidneys negative for hydronephrosis. Small gallstones within the gallbladder lumen. Continued improving components of diverticulitis. The pericolonic collections previously chronic residual diverticulosis is present. No evidence free air. No evidence for pneumatosis. Several small reactive appearing nodes unchanged. Described have essentially resolved. IMPRESSION: Continued improvement. No significant residual collections. Chronic colonic diverticulosis at the current time. Electronically signed by: Aguila Estrada M.D. 07/24/2016 8:12 AM Dictated Date/Time: 07/24/2016 8:04 AM
== END | disposition home or self-care (01) ==
LOC: C.CTS 07:40
PROVIDERS: ATTEND Colon & Rectal Surgery
DX: K57.92 Diverticulitis of intestine, part unspecified, without perforation or abscess without bleeding (principal)

== ENCOUNTER → 2016-07-26 | Outpatient (CLI) | payer OTHER ==
--- NOTE | 2016-07-26 14:47 | MAMMOGRAPHY REPORT ---
ASPIRATION LEFT BREAST: 07/26/2016 CLINICAL HISTORY: 60-year-old woman with a history of remote breast cancer and recent chest wall recu rrence status post excision. Pre-radiation CT demonstrated a fluid collection at the surgical site a nd patient presents for fluid aspiration. PATIENT CONSENT: After explaining the risks, benefits and alternatives of the procedure to the patien t, informed consent was obtained verbally and in writing. Specific risks include: bleeding, infection and puncture of adjacent structure. A time out was preformed in the left breast/chest were agreed as the site for ultrasound-guided fluid aspiration. PROCEDURE DESCRIPTION: First, targeted ultrasound was performed along the left chest wall over the ma stectomy scar and over a new a skin flap identified along the superior sternum to assess for fluid. Fluid is seen most prominent along the midline and medial aspect of the left breast. This is amenabl e to ultrasound guided fluid aspiration. The skin of the left chest was cleansed with Betadine. 1% buffered lidocaine without epinephrine was administered as local anesthesia. A 22-gauge needle was then advanced into the fluid and aspiration was performed. Approximately 35 mL of serosanguineous fluid were aspirated. Some of the fluid was sent to the pathology department for cytologic analysis as well as culture and Gram stain. Real-time ultrasound during aspiration demonstrated significant decrease in the amount of fluid after aspirati on. The patient tolerated the procedure well and there was no immediate consultation. She left the department in satisfactory condition. IMPRESSION: ASPIRATION Status post aspiration of a postoperative fluid collection in the left anterior chest and breast. Ap proximately 35 mL of serosanguineous fluid was aspirated. Some of the fluid was sent to the patholog y department for cytologic analysis as well as culture and Gram stain. Filomena Faulkner M.D. ay/:07/26/2016 12:23:26 Solvent Mixer: Dolly EARL (R)), [facility]
== END | disposition home or self-care (01) ==
LOC: C.MAMM 08:52
PROVIDERS: ATTEND Radiology Radiation Oncology
DX: L76.82 Other postprocedural complications of skin and subcutaneous tissue (principal)

== ENCOUNTER → 2016-08-25 | Day surgery (SDC) | payer OTHER ==
[2016-08-14 10:41] VITALS: Ht 165.1 cm; Wt 99.5 kg
[~2016-08-25] VITALS: Ht 165.1 cm; Wt 99.5 kg
[~2016-08-25] MED LIST changes: -CRG625 PO; +LIDOCAINE HCL 2% 2 ML VIAL (20MG/ML) ONE; -MAGN400T6 PO; -METF-384 PO; +PHENYLEPHRINE 100MCG/ML 5ML SYR ONE; +PROPOFOL IV EMULSION 10 MG/ML 20 ML VIAL IV ONE
--- NOTE | 2016-08-25 14:31 | Endo History and Physical ---
History & Physical Date of Service: Aug 25, 2016. Chief Complaint: diverticulitis Referring Physician: Dr. Adrienne Nathan History of Present Illness For flex sig Past Medical History Diabetes, Arthritis, Cancer, Chronic Steroid Use Past Surgical History Hx Cardiac Surgery: No (heart cath) Hx Internal Defibrillator: No Hx Pacemaker: No Hx Abdominal Surgery: Yes ([facility] BSO, RIGHT INGUINAL HERNIA REPAIR) Hx Post-Op Nausea and Vomiting: Yes Hx Cancer Surgery: Yes (BILAT MASTECTOMY) Hx Orthopedic: Yes (LUMBAR LAMINECTOMY L5-S1) Hx Urinary Tract Surgery: No Family History None Social History Smoking Status: Former Smoker Hx Substance Use: No Hx Alcohol Use: No Allergies Coded Allergies: Aspirin (Verified Allergy, Mild, HIVES, 08/14/16) Ibuprofen (Verified Allergy, Mild, HIVES, 08/14/16) Tamoxifen (Verified Allergy, Unknown, TEMP LOSS OF VISION IN LEFT EYE, 11/21) Current Medications Reported Home Medications Medications Dose Route/Sig Max Daily Dose Days Date Category Coreg (Carvedilol) 25 Mg Tab 1 Tab PO BID 30 08/15/16 Reported Lasix (Furosemide) 40 Mg Tab 40 Mg PO QAM 08/14/16 Reported Paroxetine (Paroxetine HCl) 30 Mg Tab 30 Mg PO QAM 08/14/16 Reported Glucophage Ext Rel (Metformin Hcl) 1,000 Mg Tab 500 Mg PO QAM 08/14/16 Reported Losartan Potassium 25 Mg Tab 25 Mg PO QAM 08/14/16 Reported Ativan (Lorazepam) 0.5 Mg Tab 0.5 Mg PO TID PRN 07/05/16 Reported Arimidex (Anastrozole) 1 Mg Tab 1 Tab PO DAILY 90 07/05/16 Reported Prednisone 5 Mg Tab 5 Mg PO QAM 06/05/16 Reported Potassium Chloride ER (Potassium Chloride) 20 Meq Tab 20 Meq PO QAM 06/05/16 Reported Multivitamin (Multivitamins) Tab 1 Tab PO QAM 01/03/16 Reported Vitamin D (Cholecalciferol) 1,000 Unit Tab 1,000 Units PO QAM 10/29/15 Reported Tylenol (Acetaminophen) 500 Mg Tab 1,000 Mg PO Q6 PRN 11/23/14 Reported Vital Signs Weight (Kilograms): 99.55 Height (Feet): 5 Height (Inches): 5 Date Time Temp Pulse Resp B/P (MAP) Pulse Ox O2 Delivery O2 Flow Rate FiO2 08/25/16 14:22 36.6 108 20 120/83 (95) 96 Room Air Physical Exam General Appearance: + obese Respiratory/Chest: Respiratory effort: no dyspnea, pertinent finding (HX mastectomies) Cardiovascular: Heart Auscultation: RRR Abdomen: Inspection & Palpation: soft Assessment and Plan Diverticulitis for flex sig
--- NOTE | 2016-08-25 14:48 | Discharge Instructions ---
Endoscopy Patient Instructions Date / Procedure(s) Performed Aug 25, 2016. Flex Sig Allergy Information Coded Allergies: Aspirin (Verified Allergy, Mild, HIVES, 08/14/16) Ibuprofen (Verified Allergy, Mild, HIVES, 08/14/16) Tamoxifen (Verified Allergy, Unknown, TEMP LOSS OF VISION IN LEFT EYE, 11/21) Discharge Date / Findings Aug 25, 2016. Diverticulosis Medication Instructions Restart Stopped Medication(s): resume meds Reported Home Medications Medications Dose Route/Sig Max Daily Dose Days Date Category Coreg (Carvedilol) 25 Mg Tab 1 Tab PO BID 30 08/15/16 Reported Lasix (Furosemide) 40 Mg Tab 40 Mg PO QAM 08/14/16 Reported Paroxetine (Paroxetine HCl) 30 Mg Tab 30 Mg PO QAM 08/14/16 Reported Glucophage Ext Rel (Metformin Hcl) 1,000 Mg Tab 500 Mg PO QAM 08/14/16 Reported Losartan Potassium 25 Mg Tab 25 Mg PO QAM 08/14/16 Reported Ativan (Lorazepam) 0.5 Mg Tab 0.5 Mg PO TID PRN 07/05/16 Reported Arimidex (Anastrozole) 1 Mg Tab 1 Tab PO DAILY 90 07/05/16 Reported Prednisone 5 Mg Tab 5 Mg PO QAM 06/05/16 Reported Potassium Chloride ER (Potassium Chloride) 20 Meq Tab 20 Meq PO QAM 06/05/16 Reported Multivitamin (Multivitamins) Tab 1 Tab PO QAM 01/03/16 Reported Vitamin D (Cholecalciferol) 1,000 Unit Tab 1,000 Units PO QAM 10/29/15 Reported Tylenol (Acetaminophen) 500 Mg Tab 1,000 Mg PO Q6 PRN 11/23/14 Reported Provider Instructions Activity Restrictions - No exercising or heavy lifting for 24 hours. - Do not drink alcohol the day of the procedure. - Do not drive a car or operate machinery until the day after the procedure. - Do not make any important decisions or sign important papers in 24 hours after the procedure. Following Day: - Return to full activity which may include returning to work/school. Diet Start your diet with liquids and light foods (jello, soup, juice, toast). Then eat your usual diet if not nauseated. Treatment For Common After Affects For mild abdominal pain, bloating, or excessive gas: - Rest - Eat lightly - Lie on right side Follow-Up Information Follow-up with Dr. Adrienne Nathan as scheduled Anesthesia Information What You Should Know You have had a procedure that required some medicine to reduce anxiety and discomfort. This treatment is called moderate sedation. After receiving the treatment, you may be sleepy, but you will be able to breathe on your own. The effects of the treatment may last for several hours. Follow these instructions along with Activity/Diet recommendations noted above: * Do NOT do anything where dizziness or clumsiness would be dangerous. * Rest quietly at home today, then you can be up and about tomorrow. * Have a responsible person stay with you the rest of today. * You may have had an I.V. today. If so, you may take the dressing off later today. Recommendations Call your doctor if: * Trouble breathing * Continuous vomiting for more than 24 hours * Temperature above 101 degrees * Severe abdominal pain or bloating * Pain not relieved by pain medicine ordered * There is increased drainage or redness from any incision * A large amount of rectal bleeding greater than 2-3 tablespoons. (If you had a polyp/s removed or have hemorrhoids, a small amount of blood - from the rectum is to be expected.) * You have any unanswered questions or concerns. IN THE EVENT OF A SERIOUS EMERGENCY, GO TO THE NEAREST EMERGENCY ROOM Your discharge instructions were prepared by provider Lee Smallwood. Patient Instructions Signature Page Yamel Ojeda Patient (or Guardian) Signature/Date: I have read and understand the instructions given to me by my caregivers. Caregiver/RN/Doctor Signature/Date: The above-named patient and/or guardian has received patient instructions on this date. + Original Patient Signature Page (only) stays with chart. Please make copy for patient.
--- NOTE | 2016-08-25 14:51 | GI REPORT ---
Procedure Date: 08/25/2016 2:33 PM Procedure: Flexible Sigmoidoscopy Indications: Follow-up of diverticulitis Medicines: Propofol total dose 100 mg IV, Lidocaine 40 mg IV Complications: No immediate complications. Estimated Blood Loss: Estimated blood loss: none. Procedure: Pre-Anesthesia Assessment: - Prior to the procedure, a History and Physical was performed, and patient medications, allergies and sensitivities were reviewed. The patient's tolerance of previous anesthesia was reviewed. - The risks and benefits of the procedure and the sedation options and risks were discussed with the patient. All questions were answered and informed consent was obtained. After obtaining informed consent, the endoscope was passed under direct vision. Throughout the procedure, the patient's blood pressure, pulse, and oxygen saturations were monitored continuously. The scope was introduced through the anus and advanced to the descending colon. The flexible sigmoidoscopy was accomplished without difficulty. The patient tolerated the procedure well. The quality of the bowel preparation was fair. Findings: Multiple small and large-mouthed diverticula were found in the sigmoid colon. Impression: - Diverticulosis in the sigmoid colon. - No specimens collected. Recommendation: - Discharge patient to home (ambulatory). - Continue present medications. - Return to referring physician as previously scheduled. Lee Smallwood M.D. Lee Smallwood MD 08/25/2016 2:51:23 PM This report has been signed electronically. Note Initiated On: 08/25/2016 2:33 PM I attest to the content of the Intraoperative Record and orders documented therein, exceptions below
--- NOTE | 2016-08-25 15:03 | Anesthesiology Progress Note ---
Anesthesia Post Op Note Date & Time Aug 25, 2016 at 15:03 Vital Signs Pain Intensity: 0 Vital Signs Past 12 Hours Date Time Temp Pulse Resp B/P (MAP) Pulse Ox O2 Delivery O2 Flow Rate FiO2 08/25/16 14:51 90 16 116/91 (99) 97 Room Air 08/25/16 14:22 36.6 108 20 120/83 (95) 96 Room Air Notes Mental Status: alert / awake / arousable, participated in evaluation Pt Amnestic to Procedure: Yes Nausea / Vomiting: adequately controlled Pain: adequately controlled Airway Patency, RR, SpO2: stable & adequate BP & HR: stable & adequate Hydration State: stable & adequate Anesthetic Complications: no major complications apparent
[2016-08-25 15:23] VITALS: BP 123/73; PULSE 94; O2SAT 99
== END | disposition home or self-care (01) ==
LOC: C.GI 14:00
PROVIDERS: ATTEND Internal Medicine Gastroenterology
DX: K57.30 Diverticulosis of large intestine without perforation or abscess without bleeding (principal); Z87.19 Personal history of other diseases of the digestive system; E11.9 Type 2 diabetes mellitus without complications; Z87.891 Personal history of nicotine dependence; Z79.52 Long term (current) use of systemic steroids; Z79.899 Other long term (current) drug therapy

== ENCOUNTER → 2016-08-30 | Outpatient (CLI) | payer OTHER ==
[~2016-08-30] MED LIST changes: -LIDOCAINE HCL 2% 2 ML VIAL (20MG/ML) ONE; -PHENYLEPHRINE 100MCG/ML 5ML SYR ONE; -PROPOFOL IV EMULSION 10 MG/ML 20 ML VIAL IV ONE
[2016-08-30 10:04] LABS: BASO % 0.4 %; BASO ABS # 0.03 K/uL (0-0.2); COMPLETE YES; EOS % 1.1 %; HEMATOCRIT 42.7 % (37-47); IG% 0.6 %; LYMPH % 13.7 %; LYMPH ABS # 1.14 K/uL (1.2-3.4); MEAN CELL VOLUME 91.8 fL (80-100); MEAN CORPUSCULAR HGB CONC 31.6 g/dl (32-36); MONO % 6.4 %; NEUT % 77.8 %; PLATELET COUNT 270 K/uL (130-400); RED BLOOD COUNT 4.65 M/uL (4.2-5.4); WHITE BLOOD COUNT 8.31 K/uL (4.8-10.8)
[2016-08-30 10:31] LABS: ALT/SGPT 15 U/L (12-78); AST/SGOT 7 U/L (15-37); BLOOD UREA NITROGEN 15 mg/dl (7-18); BUN/CREATININE RATIO 16.1 (10-20); CARBON DIOXIDE 28 mmol/L (21-32); CHLORIDE 106 mmol/L (98-107); CREATININE 0.92 mg/dl (0.60-1.20); GLUCOSE 115 mg/dl (70-99); SODIUM 141 mmol/L (136-145)
[2016-08-30 10:33] LABS: ALB/GLOB RATIO 0.8 (0.9-2); ALKALINE PHOSPHATASE 61 U/L (45-117)
== END | disposition home or self-care (01) ==
LOC: C.LAB 09:27
PROVIDERS: ATTEND Internal Medicine Hematology & Oncology
DX: C50.919 Malignant neoplasm of unspecified site of unspecified female breast (principal)

== ENCOUNTER → 2016-09-13 | Outpatient (CLI) | payer OTHER ==
[2016-09-13 18:17] LABS: URINE EPITHELIAL CELL AUTO >30 /lpf (0-5); ZZInitiateTest Complete
[2016-09-13 18:20] LABS: MANUAL MICROSCOPIC REQUIRED? NO; REVIEW REQ? YES
[2016-09-13 18:55] LABS: URINE PATH CASTS 0-3 WAXY CASTS /lpf (0)
== END | disposition home or self-care (01) ==
LOC: C.LABPVFM 08:31
PROVIDERS: ATTEND Family Medicine
DX: R39.9 Unspecified symptoms and signs involving the genitourinary system (principal)

== ENCOUNTER → 2016-10-24 | Outpatient (CLI) | payer OTHER ==
[2016-10-24 09:30] LABS: BASO % 0.4 %; BASO ABS # 0.03 K/uL (0-0.2); COMPLETE YES; EOS % 3.4 %; HEMATOCRIT 44.5 % (37-47); IG% 0.9 %; LYMPH % 17.4 %; LYMPH ABS # 1.19 K/uL (1.2-3.4); MEAN CELL VOLUME 93.7 fL (80-100); MEAN CORPUSCULAR HEMOGLOBIN 29.7 pg (25-34); MEAN CORPUSCULAR HGB CONC 31.7 g/dl (32-36); MEAN PLATELET VOLUME 9.8 fL (7.4-10.4); MONO % 7.8 %; NEUT % 70.1 %; PLATELET COUNT 236 K/uL (130-400); RED BLOOD COUNT 4.75 M/uL (4.2-5.4); WHITE BLOOD COUNT 6.82 K/uL (4.8-10.8)
[2016-10-24 10:18] LABS: ALT/SGPT 20 U/L (12-78); AST/SGOT 15 U/L (15-37); BLOOD UREA NITROGEN 12 mg/dl (7-18); BUN/CREATININE RATIO 14.8 (10-20); CALCIUM 9.4 mg/dl (8.5-10.1); CARBON DIOXIDE 24 mmol/L (21-32); CHLORIDE 108 mmol/L (98-107); CREATININE 0.78 mg/dl (0.60-1.20); GLUCOSE 138 mg/dl (70-99); POTASSIUM 4.4 mmol/L (3.5-5.1); SODIUM 141 mmol/L (136-145)
[2016-10-24 10:20] LABS: ALB/GLOB RATIO 0.8 (0.9-2); ALKALINE PHOSPHATASE 73 U/L (45-117)
== END | disposition home or self-care (01) ==
LOC: C.LAB 08:56
PROVIDERS: ATTEND Internal Medicine Hematology & Oncology
DX: D49.3 Neoplasm of unspecified behavior of breast (principal)

== ENCOUNTER → 2016-10-25 | Outpatient (CLI) | payer OTHER ==
[2016-10-25 14:39] VITALS: BP 111/72; PULSE 76; TEMP 36.5; O2SAT 95
--- NOTE | 2016-10-25 16:02 | Radiation Oncology Follow-Up ---
Radiation Oncology Follow-Up Date of Visit Oct 25, 2016. 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 Ojeda is a 60-year-old female who was found to have a left breast carcinoma and underwent a left breast mastectomy and axillary dissection in 1994. The records from this procedure including the pathology report have been sent for an will be evaluated when available. The patient tolerated the procedure well. She was seen by Dr. Murry for discussion of adjuvant therapy. The lesion was ER and LA positive and all axillary nodes were negative. The patient went on to receive high-dose Adriamycin and cyclophosphamide for 4 cycles. She was subsequently placed on tamoxifen. 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 She had no evidence of lymphedema in the left arm and no sequela I from the surgery. The patient has a very strong family history with both a mother and sister diagnosed with breast cancer. She was therefore seen by Dr. Devante Hopkins in September 2004 to discuss the possibility of a right prophylactic total mastectomy. This was ultimately agreed upon and on 09/14/2004 the patient underwent a right total mastectomy. The tissue was negative for in situ and invasive carcinoma. Specimen #[id number]. The patient had noted a nodule on her left chest wall which had been present for many years and was unchanged. She indicated that it occasionally is itchy but otherwise was asymptomatic. The patient has noted more recently increasing cardiac issues with PVCs and shortness of breath and ultimately dyspnea. On patient underwent a CT angiography of the chest with a pulmonary embolus protocol due to increasing shortness of breath. This revealed multiple mildly enlarged thoracic lymph nodes. An index right paratracheal lymph node measured 1.4 cm and an index right hilar lymph node measured 1.3 cm. An index left infrahilar node measured 1.4 cm. There was an 8 mm lingular nodule. A sclerotic lesion was noted within the left scapular spine likely reflecting a bone island. There was an old right rib fracture appreciated. Also noted was a 4.0 x 2.1 I 1.9 cm subcutaneous mass in the left anterior chest wall which overlies the medial aspect of the left pectoralis muscle. There were left axillary surgical clips from her prior mastectomy and axillary dissection. Patient underwent a repeat CT angiogram of the chest on 02/04/2016. This again noted the pathologically enlarged mediastinal and hilar lymph nodes. A 2 cm right paratracheal lymph node was appreciated and a 1.7 cm subcarinal lymph node. A 1.5 cm right hilar and left hilar nodes were noted. There were no pathologic axillary adenopathy appreciated. Again noted was a stable 3.8 x 2.3 x 2.0 cm left anterior chest wall nodule. The patient was seen by Dr. Philip Martinez for evaluation of the pulmonary nodules. A repeat CT scan of the chest with IV contrast was performed on 05/01/2016. Again noted were persistent enlarged mediastinal lymph nodes. A 7 mm pleural-based lingular pulmonary nodule was noted and smaller on up prior study. There were surgical clips in the left axilla but no pathologically enlarged axillary lymphadenopathy. The left anterior chest wall mass was again noted. He ordered a PET CT scan which was performed on 05/17/2016. This showed a 2.9 x 2.1 cm FDG avid mass within the left upper presternal soft tissue. This mass abuts the skin surface and invades into the medial aspect of the left pectoralis major muscle. This mass demonstrated an SUV max of 6. Mediastinal and bilateral hilar lymphadenopathy was again noted demonstrating mild FDG uptake with an SUV max of 2.5. These lymph nodes had increased slightly in size from the study of April 2016 but have slightly decreased in size compared to the study in 02/04/2016. The dominant right paratracheal lymph node measured 1.4 cm. A stable 7 mm lingular nodule was noted. There was evidence of an acute sigmoid diverticulitis with a small focus of microperforation but no abscess. There was no fistula identified with recommended close follow-up. On 06/16/[address] scan of the abdomen and pelvis with IV contrast. This showed thickening in pericolic fat with within the proximal sigmoid colon consistent with acute diverticulitis that was not present on the prior study. There was also a 3.1 x 1.2 cm pericolic abscess at this location. There was stable to slightly improvement in the mid sigmoid: Diverticulitis compared to the prior study. There was a stable 1.3 cm sclerotic focus side within the left femoral head and right sacrum. These were nonspecific but did not show abnormal FDG uptake on the recent PET/CT scan. This study was repeated with IV and oral contrast on 06/19/2016. This showed slight improvement in the inflammatory change involving the proximal and mid sigmoid: Diverticulitis. There was slight improvement in the pulmonary edema however this small bilateral pleural effusions have increased slightly. Dr. martinez was concerned about the chest wall mass despite the fact it appeared to have been there for many years and unchanged.. The patient was again seen by Dr. Devante Hopkins. His examination revealed a superior medial quadrant mass palpated at the 11 o'clock position with a visible skin nodule measuring about 2 cm. The skin superior to this lesion was adherent. Deep to the skin was a palpable firm immobile mass measuring approximate 6 cm in the left chest wall. The patient was therefore scheduled for excision of this mass. She was also seen by Dr. Alice Levine for consideration of a flap to ensure clear margins. Therefore on 06/12/2016 the patient underwent an excision of the left chest wall soft tissue mass followed by a skin and soft tissue rotational flap to close the defect of the left chest wall. A local excision of the lesion was performed. This confirmed unfortunately an adenocarcinoma consistent with a recurrent ductal carcinoma of breast origin. The lesion measured 4.0 x 2.5 x 2.5 cm. Estrogen receptors were positive (100%, strong to intermediate intensity, H score 250). Progesterone receptors are positive (30%, intermediate intensity, H score 60). HER-2/eddie overexpression was equivocal (score 2+, weak staining in 10%). The tumor cells however were negative by HER-2/eddie amplification by FISH. The margin on this tissue was negative however extremely close at less than 0.1 mm. Additional left chest wall superior margin and medial deep tissue was excised. The carcinoma extended to several inked and cauterized margins. This showed approximately 50% involvement by carcinoma. There was no involvement of the overlying skin noted. An additional left lateral tissue was excised and was negative for carcinoma. In discussion with pathology and their discussion with the surgeon is felt that the margins were ultimately positive. Case: [id number]. Patient underwent a repeat CT scan of the abdomen and pelvis on 06/30/2016. This showed overall improvement compared to the study of 06/19/2016 with near complete resolution of the pericolonic abscess along the proximal sigmoid colon. There was however persistent small pericolonic abscess adjacent to the mid sigmoid colon with possible associated fistula the small bowel and potentially the right aspect of the bladder dome. The patient was subsequently seen by Dr. Fercho Holland for discussion of the role of adjuvant systemic therapy. There was a question at that time whether the patient would require abdominal surgery. He therefore decided against cytotoxic chemotherapy at that time. He recommended aromatase inhibition and has started the patient on anastrozole 1 mg by mouth daily. We were asked to see the patient for evaluation of the role of adjuvant radiation. His for this reason the patient is being seen in referral. She underwent conventional radiation therapy to the chest wall. This was completed 09/21/2016. She received 6120 cGy. Interim History Over this past month the skin irritation of the chest wall has improved. She has only remaining small area of hyperpigmentation and dry skin. She denied any pain or tenderness. She is noted no masses or changes of the axilla. She is noted no swelling of her arm. She has continued on Arimidex. She is tolerating this well. She was seen in medical oncology and had a recheck PET scan. She like to review the results of the PET scan today. She has developed some new issues that are likely related to her history of the diverticulitis and previous abscess. She has noted that urination can occur from the vagina. There is no vaginal discharge associated. She denies pelvic pressure or pain. She has seen her family physician and sheet rock installer. She has been referred to a urologic sheet rock installer. Allergies Coded Allergies: Aspirin (Verified Allergy, Mild, HIVES, 08/14/16) Ibuprofen (Verified Allergy, Mild, HIVES, 08/14/16) Tamoxifen (Verified Allergy, Unknown, TEMP LOSS OF VISION IN LEFT EYE, 11/21) Home Medications Scheduled Anastrozole (Arimidex), 1 TAB PO DAILY Carvedilol (Coreg), 1 TAB PO BID Furosemide (Lasix), 40 MG PO QAM Losartan Potassium (Cozaar), 25 MG PO BID Metformin Hcl (Glucophage Ext Rel), 500 MG PO QAM Multivitamin (Multivitamin), 1 TAB PO QAM Paroxetine HCl (Paroxetine), 30 MG PO QAM Potassium Chloride (Potassium Chloride ER), 20 MEQ PO QAM Prednisone (Prednisone), 5 MG PO QAM Scheduled PRN Acetaminophen (Tylenol), 1,000 MG PO Q6 PRN for Pain Lorazepam (Ativan), 0.5 MG PO TID PRN for Anxiety/Insomnia Review of Systems Gastrointestinal: Symptoms: WNL Oral: Symptoms: No Problems Respiratory: Symptoms: WNL Urinary: Comments: See below notations Skin: Other Skin Symptoms: Skin on treatment site to right of sternal border - intact and brown; Breast: Right Upper Arm Measurement: 37.5 Right Mid Arm Measurement: 23.5 Right Wrist Measurement: 15.3 Left Upper Arm Measurement: 36.3 Left Mid Arm Measurement: 25.5 Left Wrist Measurement: 15.5 Arm Dominence: Right Physical Exam Vital Signs Date Time Temp Pulse Resp B/P (MAP) Pulse Ox O2 Delivery O2 Flow Rate FiO2 10/25/16 14:39 36.5 76 24 111/72 95 Fatigue: None General Appearance: no apparent distress Eyes: normal inspection, EOMI ENT: normal ENT inspection, hearing grossly normal Respiratory/Chest: lungs clear, no respiratory distress, no accessory muscle use Breast: Status post bilateral mastectomies. The left chest wall shows resolving hyperpigmentation. There are no palpable masses or tenderness. There is no axillary adenopathy. Cardiovascular: regular rate, rhythm, no gallop, no murmur Neurologic/Psychiatric: no motor/sensory deficits, alert, normal mood/affect Skin: warm/dry Laboratory Studies Test 08/30/16 09:41 09/04/16 13:37 09/13/16 16:00 10/24/16 09:02 White Blood Count 8.31 K/uL (4.8-10.8) 6.82 K/uL (4.8-10.8) Red Blood Count 4.65 M/uL (4.2-5.4) 4.75 M/uL (4.2-5.4) Hemoglobin 13.5 g/dL (12.0-16.0) 14.1 g/dL (12.0-16.0) Hematocrit 42.7 % (37-47) 44.5 % (37-47) Mean Corpuscular Volume 91.8 fL (80-100) 93.7 fL (80-100) Mean Corpuscular Hemoglobin 29.0 pg (25-34) 29.7 pg (25-34) Mean Corpuscular Hemoglobin Concent 31.6 g/dl (32-36) 31.7 g/dl (32-36) Platelet Count 270 K/uL (130-400) 236 K/uL (130-400) Mean Platelet Volume 10.0 fL (7.4-10.4) 9.8 fL (7.4-10.4) Neutrophils (%) (Auto) 77.8 % 70.1 % Lymphocytes (%) (Auto) 13.7 % 17.4 % Monocytes (%) (Auto) 6.4 % 7.8 % Eosinophils (%) (Auto) 1.1 % 3.4 % Basophils (%) (Auto) 0.4 % 0.4 % Neutrophils # (Auto) 6.47 K/uL (1.4-6.5) 4.78 K/uL (1.4-6.5) Lymphocytes # (Auto) 1.14 K/uL (1.2-3.4) 1.19 K/uL (1.2-3.4) Monocytes # (Auto) 0.53 K/uL (0.11-0.59) 0.53 K/uL (0.11-0.59) Eosinophils # (Auto) 0.09 K/uL (0-0.5) 0.23 K/uL (0-0.5) Basophils # (Auto) 0.03 K/uL (0-0.2) 0.03 K/uL (0-0.2) RDW Standard Deviation 53.2 fL (36.4-46.3) 58.3 fL (36.4-46.3) RDW Coefficient of Variation 16.0 % (11.5-14.5) 17.1 % (11.5-14.5) Immature Granulocyte % (Auto) 0.6 % 0.9 % Immature Granulocyte # (Auto) 0.05 K/uL (0.00-0.02) 0.06 K/uL (0.00-0.02) Sodium Level 141 mmol/L (136-145) 141 mmol/L (136-145) Potassium Level 4.0 mmol/L (3.5-5.1) 4.4 mmol/L (3.5-5.1) Chloride Level 106 mmol/L (98-107) 108 mmol/L (98-107) Carbon Dioxide Level 28 mmol/L (21-32) 24 mmol/L (21-32) Anion Gap 7.0 mmol/L (3-11) 9.0 mmol/L (3-11) Blood Urea Nitrogen 15 mg/dl (7-18) 12 mg/dl (7-18) Creatinine 0.92 mg/dl (0.60-1.20) 0.78 mg/dl (0.60-1.20) Estimated GFR () 77.9 95.1 Estimated GFR (Non- 67.2 82.1 BUN/Creatinine Ratio 16.1 (10-20) 14.8 (10-20) Random Glucose 115 mg/dl (70-99) 138 mg/dl (70-99) Calcium Level 9.0 mg/dl (8.5-10.1) 9.4 mg/dl (8.5-10.1) Total Bilirubin 0.4 mg/dl (0.2-1) 0.6 mg/dl (0.2-1) Aspartate Amino Transferase (AST) 7 U/L (15-37) 15 U/L (15-37) Alanine Aminotransferase (ALT) 15 U/L (12-78) 20 U/L (12-78) Alkaline Phosphatase 61 U/L (45-117) 73 U/L (45-117) Total Protein 6.8 gm/dl (6.4-8.2) 7.4 gm/dl (6.4-8.2) Albumin 3.0 gm/dl (3.4-5.0) 3.3 gm/dl (3.4-5.0) Globulin 3.8 gm/dl (2.5-4.0) 4.1 gm/dl (2.5-4.0) Albumin/Globulin Ratio 0.8 (0.9-2) 0.8 (0.9-2) Urine Color DK YELLOW Urine Appearance TURBID (CLEAR) Urine pH 5.5 (4.5-7.5) Urine Specific [place] 1.024 (1.000-1.030) Urine Protein 3+ (NEG) Urine Glucose (UA) NEG (NEG) Urine Ketones TRACE (NEG) Urine Occult Blood 3+ (NEG) Urine Nitrite NEG (NEG) Urine Bilirubin NEG (NEG) Urine Urobilinogen NEG (NEG) Urine Leukocyte Esterase LARGE (NEG) Urine WBC (Auto) >30 /hpf (0-5) >30 /hpf (0-5) Urine RBC (Auto) >30 /hpf (0-4) 5-10 /hpf (0-4) Urine Hyaline Casts (Auto) 1-5 /lpf (0-5) 0 /lpf (0-5) Urine Epithelial Cells (Auto) >30 /lpf (0-5) >30 /lpf (0-5) Urine Bacteria (Auto) 2+ (NEG) 2+ (NEG) Urine Pathogenic Casts /lpf (0) 0-3 WAXY CASTS /lpf (0) Urine Yeast (Auto) PRESENT (NONE PRSENT) (NONE PRSENT) Additional Studies Patient: RAMSEY OJEDA Address1: [address] [place] [address] Rec: [id number] Address2: Acct ID: [id number] [facility] Zip: [place] [address] Date: 1955 Sex: F Room/Bed: Ref Phy: Armand Kearney M.D. SC: C.PET Att Phy: Fercho Holland D.O. Report #: [id number] Jaki Phy: Armand Kearney M.D. Test: PETCTST Admit Phy: Operations Officer Afloat: ANTOINETTE Interpreting Phy: Curtis Soriano M.D. Diagnosis: MALIGNANT NEOPLASM, LEFT FEMALE BREAST Ordering Phy: Fercho Holland D.O. Service Date: 10/25/16 Admit Date: 10/25/16 MNE: [id number] CONF: DICTATED BY: Curtis Soriano M.D.]] CC: Fercho Holland D.O., Paul O., M.D. Endcc: [~ rep ct add3]] PET/CT CLINICAL HISTORY: Breast cancer. COMPARISON STUDY: PET/CT dated 05/17/2016. Abdominal CT dated 07/24/2016. TECHNIQUE: One hour following the IV administration of 15.99 mCi of F-18 FDG, PET/CT examination was performed from the orbital meatal line through the bony pelvis. Noncontrast CT is performed for the purposes of anatomic correlation and attenuation correction. Note that this does not reflect a diagnostic CT examination. Images were reviewed on a separate [employer] independent workstation. Fused images were obtained. Standard uptake values reported are maximum values within the region of interest expressed in gm/mL. FINDINGS: PET FINDINGS: Head and neck: There is expected physiologic activity within the visualized brain parenchyma at the skull base and the salivary glands. Thorax: Evaluation of the thorax demonstrates expected physiologic myocardial activity. Subcentimeter mediastinal lymph nodes are noted. These were not demonstrably FDG avid. The FDG avid chest wall mass identified on 05/17/2016 is no longer present. There is mild induration within the left ventral chest wall at this site. Trace fluid is identified and likely represents a postoperative seroma. There is low-level FDG activity within this site with a maximum SUV of 2.7. Abdomen and pelvis: There is expected activity within the liver, spleen, kidneys, renal collecting system, and bladder. Low-level bowel activity is likely within physical limits. Findings of acute diverticulitis are suggested involving the distal descending/proximal sigmoid colon. This is FDG avid with a maximum SUV of 7.6. FDG activity is also seen involving the majority of the sigmoid colon. This demonstrate a maximum SUV of 5.5. Skeletal structures: Sclerotic bone lesions are again seen. A lesion in the left scapula is identified on image #43. A lesion in the right sacrum is seen on image #182. Punctate lesions are seen within the right iliac wing and the body of L5. These are unchanged from previously were not demonstrably FDG avid during the examination. Sclerotic change in the right lateral sixth rib is again noted and may be related to previous rib fracture. There are numerous right-sided rib fractures identified. Unenhanced CT images: Partial visualized brain parenchyma at the skull base is grossly normal in appearance. The bony orbits are intact and the orbital contents are within normal limits. The visualized paranasal sinuses and the mastoid air cells are clear. There is atherosclerotic calcification of the cavernous carotid arteries. The salivary glands are within normal limits. A 2 cm left thyroid nodule is identified and was not FDG avid. No cervical lymphadenopathy is seen. There is atherosclerotic calcification of the thoracic aorta which is normal in caliber. The heart is enlarged and there is trace pericardial effusion. There is no airspace consolidation or pleural effusion. A 7 mm pleural-based nodule in the lingula is again seen image #75. This was not FDG avid but remains too small for definitive PET characterization. Chronic interstitial thickening is similar to previous and may represent a colitis of chronic congestion. A tiny hiatal hernia is observed. Surgical clips are noted in the left axilla. No axillary lymphadenopathy is identified. The unenhanced liver, spleen, adrenal glands, and pancreas are grossly unremarkable. Calcified gallstones are observed. The kidneys demonstrate cortical atrophy and are without hydronephrosis. The abdominal aorta is normal in caliber noting moderate atherosclerotic calcification. No bowel obstruction is identified. There is moderate colonic diverticulosis. Wall thickening and pericolic stranding are seen around the distal descending colon suggesting diverticulitis. There is no evidence of abscess. No intraperitoneal free air or abdominal ascites is seen. A normal appendix is identified. The bladder wall is thickened and there is pericystic inflammation. Interval gas is present in the bladder. The uterus is surgically absent. No adnexal lesion is seen. There are prominent retroperitoneal lymph nodes which measure up to 9 mm in short axis. These are not pathologically enlarged by size criteria and have decreased in size from 07/24/2016. No inguinal lymphadenopathy is seen. The skeletal structures are osteopenic. IMPRESSION: 1. There is no clear evidence of FDG avid metastatic disease on today's examination. 2. The FDG avid left ventral chest wall implant seen on 05/17/2016 has been removed. There is low level FDG activity and a tiny pocket of fluid at this site, likely representing a tiny seroma and postoperative change. Continued attention at follow-up is recommended. 3. Findings are consistent with acute diverticulitis involving the distal descending/proximal sigmoid colon. 4. The bladder wall is markedly thickened with surrounding inflammation and the bladder is filled with gas. 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 5. Indeterminant sclerotic bone lesions are again noted and detailed above. These are unchanged from prior examinations and could represent bone islands versus treated metastases. 6. An indeterminant 7 mm pleural-based nodule in the lingula is unchanged and too small for definitive PET characterization. 7. Cardiomegaly with findings suggestive of chronic congestive change. 8. Subcentimeter mediastinal lymph nodes were not demonstrably FDG avid on today's examination. 9. A 2 cm low-attenuation nodule in the left thyroid lobe was not demonstrably FDG avid. This could be further assessed with thyroid ultrasound if clinically warranted. 10. Cholelithiasis. 11. Additional findings as above. Electronically signed by: Curtis Soriano M.D. 10/25/2016 11:19 AM Dictated Date/Time: 10/25/2016 10:58 AM Assessment & Plan Plan: The patient is also seen today by Dr. Dumont. We have reviewed with her the results of her PET scan. There is no clear evidence of FDG avid metastatic disease. We discussed all of the findings. A copy of the PET scan was given to the patient. She will be seeing the urologic sheet rock installer. It is concern with the changes of the bladder that she may have a colovesicular fistula. She' ll continue raver follow-up with medical oncology. She continues on the Arimidex. We asked her to return to our office in 6 months. She may call if she has any questions or concerns. She may use Aquaphor to the area of dry skin. Assessment & Plan (Attending) ADDENDUM: I agree with note created by Lea Sampson PA-C. I reviewed the patient's chart and information with her. I have examined and evaluated the patient. I reviewed relevant clinical information and answered the patient's and /or family's questions. MEDICARE SPECIALIST Total Time In Follow-Up I spent 20 minutes speaking to the patient and performing examination. I spent 15 minutes reviewing information in completing this note. [place] Total Time (Attending) In Follow-Up I spent 15 minutes examining and counseling the patient. MEDICARE SPECIALIST Copy To Devante Hopkins M.D.; Fercho Holland D.O.; Armand Kearney M.D. Problem Qualifiers (1) Breast cancer: Estrogen receptor status: positive Patient sex: female Laterality: left
== END | disposition home or self-care (01) ==
LOC: C.ONC 08:46
PROVIDERS: ATTEND Physician Assistant Medical
DX: Z08 Encounter for follow-up examination after completed treatment for malignant neoplasm (principal); Z92.3 Personal history of irradiation; Z85.3 Personal history of malignant neoplasm of breast

== ENCOUNTER → 2016-10-25 | Outpatient (CLI) | payer OTHER ==
--- NOTE | 2016-10-25 11:20 | DIAGNOSTIC IMAGING REPORT ---
PET/CT CLINICAL HISTORY: Breast cancer. COMPARISON STUDY: PET/CT dated 05/17/2016. Abdominal CT dated 07/24/2016. TECHNIQUE: One hour following the IV administration of 15.99 mCi of F-18 FDG, PET/CT examination was performed from the orbital meatal line through the bony pelvis. Noncontrast CT is performed for the purposes of anatomic correlation and attenuation correction. Note that this does not reflect a diagnostic CT examination. Images were reviewed on a separate [employer] independent workstation. Fused images were obtained. Standard uptake values reported are maximum values within the region of interest expressed in gm/mL. FINDINGS: PET FINDINGS: Head and neck: There is expected physiologic activity within the visualized brain parenchyma at the skull base and the salivary glands. Thorax: Evaluation of the thorax demonstrates expected physiologic myocardial activity. Subcentimeter mediastinal lymph nodes are noted. These were not demonstrably FDG avid. The FDG avid chest wall mass identified on 05/17/2016 is no longer present. There is mild induration within the left ventral chest wall at this site. Trace fluid is identified and likely represents a postoperative seroma. There is low-level FDG activity within this site with a maximum SUV of 2.7. Abdomen and pelvis: There is expected activity within the liver, spleen, kidneys, renal collecting system, and bladder. Low-level bowel activity is likely within physical limits. Findings of acute diverticulitis are suggested involving the distal descending/proximal sigmoid colon. This is FDG avid with a maximum SUV of 7.6. FDG activity is also seen involving the majority of the sigmoid colon. This demonstrate a maximum SUV of 5.5. Skeletal structures: Sclerotic bone lesions are again seen. A lesion in the left scapula is identified on image #43. A lesion in the right sacrum is seen on image #182. Punctate lesions are seen within the right iliac wing and the body of L5. These are unchanged from previously were not demonstrably FDG avid during the examination. Sclerotic change in the right lateral sixth rib is again noted and may be related to previous rib fracture. There are numerous right-sided rib fractures identified. Unenhanced CT images: Partial visualized brain parenchyma at the skull base is grossly normal in appearance. The bony orbits are intact and the orbital contents are within normal limits. The visualized paranasal sinuses and the mastoid air cells are clear. There is atherosclerotic calcification of the cavernous carotid arteries. The salivary glands are within normal limits. A 2 cm left thyroid nodule is identified and was not FDG avid. No cervical lymphadenopathy is seen. There is atherosclerotic calcification of the thoracic aorta which is normal in caliber. The heart is enlarged and there is trace pericardial effusion. There is no airspace consolidation or pleural effusion. A 7 mm pleural-based nodule in the lingula is again seen image #75. This was not FDG avid but remains too small for definitive PET characterization. Chronic interstitial thickening is similar to previous and may represent a colitis of chronic congestion. A tiny hiatal hernia is observed. Surgical clips are noted in the left axilla. No axillary lymphadenopathy is identified. The unenhanced liver, spleen, adrenal glands, and pancreas are grossly unremarkable. Calcified gallstones are observed. The kidneys demonstrate cortical atrophy and are without hydronephrosis. The abdominal aorta is normal in caliber noting moderate atherosclerotic calcification. No bowel obstruction is identified. There is moderate colonic diverticulosis. Wall thickening and pericolic stranding are seen around the distal descending colon suggesting diverticulitis. There is no evidence of abscess. No intraperitoneal free air or abdominal ascites is seen. A normal appendix is identified. The bladder wall is thickened and there is pericystic inflammation. Interval gas is present in the bladder. The uterus is surgically absent. No adnexal lesion is seen. There are prominent retroperitoneal lymph nodes which measure up to 9 mm in short axis. These are not pathologically enlarged by size criteria and have decreased in size from 07/24/2016. No inguinal lymphadenopathy is seen. The skeletal structures are osteopenic. IMPRESSION: 1. There is no clear evidence of FDG avid metastatic disease on today's examination. 2. The FDG avid left ventral chest wall implant seen on 05/17/2016 has been removed. There is low level FDG activity and a tiny pocket of fluid at this site, likely representing a tiny seroma and postoperative change. Continued attention at follow-up is recommended. 3. Findings are consistent with acute diverticulitis involving the distal descending/proximal sigmoid colon. 4. The bladder wall is markedly thickened with surrounding inflammation and the bladder is filled with gas. 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 5. Indeterminant sclerotic bone lesions are again noted and detailed above. These are unchanged from prior examinations and could represent bone islands versus treated metastases. 6. An indeterminant 7 mm pleural-based nodule in the lingula is unchanged and too small for definitive PET characterization. 7. Cardiomegaly with findings suggestive of chronic congestive change. 8. Subcentimeter mediastinal lymph nodes were not demonstrably FDG avid on today's examination. 9. A 2 cm low-attenuation nodule in the left thyroid lobe was not demonstrably FDG avid. This could be further assessed with thyroid ultrasound if clinically warranted. 10. Cholelithiasis. 11. Additional findings as above. Electronically signed by: Curtis Soriano M.D. 10/25/2016 11:19 AM Dictated Date/Time: 10/25/2016 10:58 AM
== END | disposition home or self-care (01) ==
LOC: C.PET 08:44
PROVIDERS: ATTEND Internal Medicine Hematology & Oncology
DX: C50.919 Malignant neoplasm of unspecified site of unspecified female breast (principal)

== ENCOUNTER → 2016-10-31 | Outpatient (CLI) | payer OTHER ==
[~2016-10-31] MED LIST changes: -CHOL100010 PO; -CZR25 PO; -NITR1CAP32 PO; -PHEN-876 PO
[2016-10-31 12:29] LABS: URINE APPEARANCE CLOUDY (CLEAR); URINE BILIRUBIN NEG (NEG); URINE COLOR YELLOW; URINE NITRITE NEG (NEG); URINE PH 6.5 (4.5-7.5); URINE SPECIFIC GRAVITY 1.013 (1.000-1.030); UROBILINOGEN NEG (NEG); ZZUR CULT IF INDIC CLEAN CATCH YES
[2016-10-31 12:42] LABS: MANUAL MICROSCOPIC REQUIRED? NO; REVIEW REQ? NO
== END | disposition home or self-care (01) ==
LOC: C.LABSPEC 11:13
PROVIDERS: ATTEND Family Medicine
DX: N39.0 Urinary tract infection, site not specified (principal)

== ENCOUNTER → 2016-12-26 | Outpatient (CLI) | payer OTHER ==
[2016-12-26 10:14] LABS: BASO % 0.2 %; BASO ABS # 0.03 K/uL (0-0.2); COMPLETE YES; HEMATOCRIT 41.3 % (37-47); LYMPH % 12.7 %; LYMPH ABS # 1.59 K/uL (1.2-3.4); MEAN CELL VOLUME 97.6 fL (80-100); MEAN CORPUSCULAR HGB CONC 31.7 g/dl (32-36); MEAN PLATELET VOLUME 9.9 fL (7.4-10.4); MONO % 4.6 %; NEUT % 79.5 %; PLATELET COUNT 265 K/uL (130-400); RED BLOOD COUNT 4.23 M/uL (4.2-5.4); WHITE BLOOD COUNT 12.55 K/uL (4.8-10.8)
[2016-12-26 10:47] LABS: ALT/SGPT 22 U/L (12-78); AST/SGOT 18 U/L (15-37); BLOOD UREA NITROGEN 19 mg/dl (7-18); BUN/CREATININE RATIO 21.5 (10-20); CALCIUM 8.9 mg/dl (8.5-10.1); CARBON DIOXIDE 30 mmol/L (21-32); CHLORIDE 101 mmol/L (98-107); CREATININE 0.87 mg/dl (0.60-1.20); GLUCOSE 143 mg/dl (70-99); POTASSIUM 4.9 mmol/L (3.5-5.1); SODIUM 138 mmol/L (136-145)
[2016-12-26 10:49] LABS: ALB/GLOB RATIO 0.7 (0.9-2); ALKALINE PHOSPHATASE 73 U/L (45-117)
== END | disposition home or self-care (01) ==
LOC: C.LAB 09:43
PROVIDERS: ATTEND Internal Medicine Hematology & Oncology
DX: C50.912 Malignant neoplasm of unspecified site of left female breast (principal)

== ENCOUNTER 2017-01-26 09:55 | Emergency (ER) | payer OTHER ==
[~2017-01-26] VITALS: Ht 165.1 cm; Wt 96.6 kg
[2017-01-26 10:05] VITALS: TEMP 36.6; Ht 165.1 cm; Wt 96.6 kg
[2017-01-26] MEDS ORDERED: ONDANSETRON INJ 2 MG/ML 2 ML VIAL IV STA (10:15)
[2017-01-26] MEDS ORDERED: HYDROmorphone INJ 1 MG/ML SYR IV STA ×3 (10:15→11:46)
[2017-01-26] MEDS ORDERED: SODIUM CHLORIDE 0.9% 500ML 500 ML IV STA (10:15)
--- NOTE | 2017-01-26 10:21 | EMERGENCY ROOM VISIT NOTE ---
History Report prepared by Rupali: Ellie Mo Under the Supervision of: Dr. Vidhi Rod M.D. First contact with patient: 10:08 Chief Complaint: NAUSEA Stated Complaint: NAUSEA, DRY HEAVES, RECTAL SPASMS Nursing Triage Summary: Had bowel resection approximately three weeks ago at [facility]. Patient got up this a.m. and had a formed BM and had severe left sided abdominal pain immediately following, also nauseous or the past several day but no vomiting. History of Present Illness The patient is a 61 year old female who presents to the Emergency Room with complaints of constant severe abdominal pain beginning about an hour and a half ago. The patient had a colon resection a couple weeks ago. She reports her pain started as rectal pressure two days ago. The patient reports having a normal bowel movement this afternoon. After the bowel movement the patient's severe pain began. She reports dry heaving and nausea. She denies any modifying or worsening factors. She denies any fever, shortness of breath, or urinary symptoms. The patient is not on any blood thinners and denies any history of blood clots. The patient reports her second set of cancer markers which were normal but rising. She has never undergone chemotherapy and has only had radiation treatment. The patient has a history of diabetes. Source of History: patient Onset: an hour and a half ago Position: abdomen Symptom Intensity: severe Timing: constant Associated Symptoms: + nausea, + abdominal pain, No fevers, No SOB, No urinary symptoms Review of Systems See HPI for pertinent positives & negatives. A total of 10 systems reviewed and were otherwise negative. Past Medical & Surgical Medical Problems: (1) Acute diverticulitis (2) Acute hypoxemic respiratory failure (3) Acute respiratory failure with hypoxia (4) Colonic diverticular abscess (5) Diabetes (6) Lumbar disc herniation with radiculopathy (7) Pneumonia (8) Shortness of breath (9) SOB (shortness of breath) Surgical Problems: (1) H/O bilateral mastectomy Family History Cancer Heart disease Hypertension Social History Smoking Status: Former Smoker Drug Use: none Marital Status: single Housing Status: lives alone Occupation Status: employed Current/Historical Medications Scheduled Anastrozole (Arimidex), 1 TAB PO DAILY Carvedilol (Coreg), 1 TAB PO BID Clonazepam (Klonopin), 1 TAB PO HS Furosemide (Lasix), 40 MG PO QAM Losartan Potassium (Cozaar), 25 MG PO BID Metformin Hcl (Glucophage Ext Rel), 500 MG PO QAM Multivitamin (Multivitamin), 1 TAB PO QAM Paroxetine HCl (Paroxetine), 30 MG PO QAM Potassium Chloride (Potassium Chloride ER), 20 MEQ PO QAM Prednisone (Prednisone), 5 MG PO QAM Scheduled PRN Acetaminophen (Tylenol), 1,000 MG PO Q6 PRN for Pain Allergies Coded Allergies: Aspirin (Verified Allergy, Mild, HIVES, 01/26/17) Ibuprofen (Verified Allergy, Mild, HIVES, 01/26/17) Tamoxifen (Verified Allergy, Unknown, TEMP LOSS OF VISION IN LEFT EYE, ) Physical Exam Vital Signs Date Time Temp Pulse Resp B/P (MAP) Pulse Ox O2 Delivery O2 Flow Rate FiO2 01/26/17 12:35 86 16 95/52 97 Room Air 01/26/17 11:55 87 18 111/53 94 Room Air 01/26/17 10:51 62 15 128/52 99 01/26/17 10:06 71 01/26/17 10:05 36.6 71 21 121/68 98 Room Air Physical Exam Vital signs reviewed. Vital stable. General: Somewhat ill-appearing female, in no significant distress. HEENT: No scleral icterus, PERRLA, neck supple. Atraumatic. Cardiovascular: Regular rate and rhythm, no extra sounds. Pulmonary: Clear to auscultation bilaterally, normal work of breathing. Abdomen: Obese abdomen, tender to epigastric region. Musculoskeletal: Atraumatic, no peripheral edema. Neurologic: Patient awake alert and oriented x 3 Skin: Warm, dry, no rash Medical Decision & Procedures ER Provider Diagnostic Interpretation: Radiology results as stated below per my review and radiologist interpretation: ABDOMEN AND PELVIS CT WITH IV CONTRAST FINDINGS: Subsegmental atelectasis of the dependent right lung base. 4 mm solid pulmonary nodule of the posterior basal segment right lower lobe, image 77 series 3 which is indeterminate. Imaged inferior cardiac chambers are unremarkable with coronary arterial calcifications seen. The liver, spleen, pancreas, gallbladder and adrenal glands are within normal limits. Mild nonspecific perinephric stranding is seen bilaterally. No renal calculi or hydronephrosis. There is mild wall thickening of the anterior urinary bladder likely reactive secondary to pelvic findings as described below. Moderate atherosclerosis of the abdominal aorta with prominent eccentric atheromatous plaque noted near the origin of the right renal artery which appears unchanged from study dated 06/19/2016. Mildly enlarged lymph node adjacent to the origin of the left common iliac artery measures 11 x 11 mm, image 244 series 3, previously 1.4 x 1.0 cm on study dated 07/24/2016 mildly enlarged 1.5 x 1.0 cm right external iliac lymph node is seen on image 33 series 3, previously 1.7 x 1.4 cm. No new adenopathy identified. Tiny sliding-type hilar hernia. There is no bowel obstruction. Postoperative findings from prior partial sigmoid colon resection and anastomosis. There is moderate circumferential wall thickening at the anastomotic site with pneumoperitoneum throughout the pelvis surrounding the anastomotic site and extending throughout the central pelvis. Additionally, there is a large multiloculated abscess containing air and fluid within the pelvis measuring up to 13.6 x 6.5 cm. Abscess is interposed between loops of adjacent bowel. Trace abdominal and pericolic ascites is likely reactive. Soft tissue prominence within the presacral tissues is also likely reactive. Mild colonic diverticulosis. Appendix appears normal. Soft tissues are unremarkable. Small fat filled ventral abdominal wall hernias are noted largest of which measure up to 1.3 cm. Indeterminate sclerotic bone lesions are again seen, notably within the left femoral neck and right sacral base which appear unchanged. IMPRESSION: 1. Postoperative changes from prior partial sigmoid colon resection. Findings compatible with anastomotic dehiscence with moderate wall thickening at the anastomotic site with pneumoperitoneum surrounding anastomosis and there is a large multiloculated fluid and air-containing abscess interposed between loops of bowel within the central pelvis measuring up to 13.6 x 6.5 cm. Surgical consultation is needed. 2. No bowel obstruction. 3. Additional stable findings as above. Findings were discussed with Vidhi Rod on 01/26/2017 at 11:42 AM Electronically signed by: Trav Gordon M.D. Laboratory Results 01/26/17 10:10 Red Blood Count 4.25, Mean Corpuscular Volume 95.5, Mean Corpuscular Hemoglobin 31.1, Mean Corpuscular Hemoglobin Concent 32.5, Mean Platelet Volume 10.2, Neutrophils (%) (Auto) 83.6, Lymphocytes (%) (Auto) 7.0, Monocytes (%) (Auto) 8.2, Eosinophils (%) (Auto) 0.2, Basophils (%) (Auto) 0.2, Neutrophils # (Auto) 12.39, Lymphocytes # (Auto) 1.04, Monocytes # (Auto) 1.22, Eosinophils # (Auto) 0.03, Basophils # (Auto) 0.03 01/26/17 10:10 Test 01/26/17 10:10 White Blood Count 14.83 K/uL (4.8-10.8) Red Blood Count 4.25 M/uL (4.2-5.4) Hemoglobin 13.2 g/dL (12.0-16.0) Hematocrit 40.6 % (37-47) Mean Corpuscular Volume 95.5 fL (80-100) Mean Corpuscular Hemoglobin 31.1 pg (25-34) Mean Corpuscular Hemoglobin Concent 32.5 g/dl (32-36) Platelet Count 370 K/uL (130-400) Mean Platelet Volume 10.2 fL (7.4-10.4) Neutrophils (%) (Auto) 83.6 % Lymphocytes (%) (Auto) 7.0 % Monocytes (%) (Auto) 8.2 % Eosinophils (%) (Auto) 0.2 % Basophils (%) (Auto) 0.2 % Neutrophils # (Auto) 12.39 K/uL (1.4-6.5) Lymphocytes # (Auto) 1.04 K/uL (1.2-3.4) Monocytes # (Auto) 1.22 K/uL (0.11-0.59) Eosinophils # (Auto) 0.03 K/uL (0-0.5) Basophils # (Auto) 0.03 K/uL (0-0.2) RDW Standard Deviation 47.5 fL (36.4-46.3) RDW Coefficient of Variation 13.7 % (11.5-14.5) Immature Granulocyte % (Auto) 0.8 % Immature Granulocyte # (Auto) 0.12 K/uL (0.00-0.02) Anion Gap 8.0 mmol/L (3-11) Est Creatinine Clear Calc Drug Dose 54.1 ml/min Estimated GFR () 53.9 Estimated GFR (Non- 46.5 BUN/Creatinine Ratio 19.6 (10-20) Calcium Level 9.7 mg/dl (8.5-10.1) Magnesium Level 1.7 mg/dl (1.8-2.4) Total Bilirubin 0.5 mg/dl (0.2-1) Direct Bilirubin 0.1 mg/dl (0-0.2) Aspartate Amino Transf (AST/SGOT) 14 U/L (15-37) Alanine Aminotransferase (ALT/SGPT) 17 U/L (12-78) Alkaline Phosphatase 93 U/L (45-117) Total Protein 7.8 gm/dl (6.4-8.2) Albumin 2.9 gm/dl (3.4-5.0) Amylase Level 42 U/L (25-115) Lipase 67 U/L (73-393) Laboratory results per my review. Medications Administered Medications (Trade) Dose Ordered Sig/Omkar Route Start Time Stop Time Status Last Admin Dose Admin Sodium Chloride 500 ml @ 999 mls/hr Q31M STAT IV 01/26/17 10:15 01/26/17 10:45 DC 01/26/17 10:15 999 MLS/HR Hydromorphone HCl (Dilaudid Inj) 1 mg NOW STAT IV 01/26/17 10:15 01/26/17 10:19 DC 01/26/17 10:24 1 MG Ondansetron HCl (Zofran Inj) 4 mg NOW STAT IV 01/26/17 10:15 01/26/17 10:19 DC 01/26/17 10:23 4 MG Hydromorphone HCl (Dilaudid Inj) 1 mg NOW STAT IV 01/26/17 10:48 01/26/17 11:13 DC 01/26/17 10:55 1 MG Hydromorphone HCl (Dilaudid Inj) 1 mg Q1HWA STAT IV 01/26/17 11:46 01/26/17 11:48 DC 01/26/17 11:57 1 MG Piperacillin Sod/ Tazobactam Sod (Zosyn Iv) 4.5 gm NOW STAT IV 01/26/17 11:46 01/26/17 11:48 DC 01/26/17 11:46 4.5 GM Sodium Chloride 1,000 ml @ 125 mls/hr Q8H STAT IV 01/26/17 11:46 01/26/17 13:26 DC 01/26/17 11:46 125 MLS/HR Lorazepam (Ativan Inj) 1 mg NOW STAT IV 01/26/17 12:36 01/26/17 12:37 DC 01/26/17 12:42 1 MG ECG Indication: abdominal pain Rate (beats per minute): 83 Rhythm: normal sinus Findings: no acute ischemic change, no ectopy, other (ST change in lateral leads) ED Course 1008: Past medical records reviewed. The patient was evaluated in room C5. A complete history and physical examination was performed. 1015: Ordered Zofran Inj 4 mg, Dilaudid Inj 1 mg IV, Sodium Chloride 500 ml @ 999 mls/hr IV. 1048: Ordered Dilaudid Inj 4 mg IV. 1125: The patient is resting more comfortably. 1140: Dr. Gordon-Radiology called with the patient's CT results. 1144: I updated the patient on her CT results. 1146: Sodium Chloride 1000 ml @ 125 mls/hr IV, Zosyn IV 4.5 mg IV, Dilaudid Inj 1 mg IV. 1201: I reviewed the patient's case with Dr. Chicas-[facility] Surgeon. He is accepting the patient for transfer and will evaluate the patient for further management. 1236: Ordered Lorazepam 1 mg IV. 1238: Ordered Lorazepam 2 mg .ROUTE. 1325: The patient left for transfer. Medical Decision Differential Diagnosis: intraabdominal abscess, surgical complication, anastomotic leak, appendicitis, bowel obstruction, intraabdominal mass, pancreatis, UTI/pyelonephritis. This patient was evaluated and appeared to be in some discomfort. IV access was obtained and laboratory work was drawn. The patient was medicated with IV Dilaudid and Zofran. She was hydrated with normal saline solution. CT scan of the abdomen and pelvis was performed and reveals an anastomotic leak with several intra-abdominal abscesses. Patient was medicated with IV Zosyn. Case was discussed with Dr. Juan Francisco cooley at [facility] of colorectal surgery. She has accepted the pt to the OR for further management. Patient was transferred via [facility] to [facility]. Medication Reconcilliation Current Medication List: was personally reviewed by me Blood Pressure Screening Patient's blood pressure: Normal blood pressure Blood pressure disposition: Referred to PCP (will be evaluated futher at [facility]) Consults Time Called: 1158 Consulting Physician: Dr. Rosas Surgeon Returned Call: 1201 I reviewed the patient's case with Dr. Rosas Surgeon. He is accepting the patient for transfer and will evaluate the patient for further management. Impression Primary Impression: Anastomotic leak of intestine Additional Impressions: Intra-abdominal abscess Breast cancer Critical Care I have personally spent greater than 35 minutes of critical care time in the direct management of this patient. This includes bedside care, interpretation of diagnostic studies, and testing, discussion with consultants, patient, and family members, and other required patient management activities. This 35 minutes is in excess of all separately billable procedures. Scribe Attestation The scribe's documentation has been prepared under my direction and personally reviewed by me in its entirety. I confirm that the note above accurately reflects all work, treatment, procedures, and medical decision making performed by me. Departure Information Dispostion Transfer Acute Care Facility Referrals Armand Kearney M.D. (PCP) Patient Instructions [facility] Problem Qualifiers
[2017-01-26 10:30] LABS: BASO % 0.2 %; BASO ABS # 0.03 K/uL (0-0.2); COMPLETE YES; EOS % 0.2 %; HEMATOCRIT 40.6 % (37-47); IG% 0.8 %; LYMPH ABS # 1.04 K/uL (1.2-3.4); MEAN CELL VOLUME 95.5 fL (80-100); MEAN CORPUSCULAR HEMOGLOBIN 31.1 pg (25-34); MEAN CORPUSCULAR HGB CONC 32.5 g/dl (32-36); MEAN PLATELET VOLUME 10.2 fL (7.4-10.4); MONO % 8.2 %; NEUT % 83.6 %; PLATELET COUNT 370 K/uL (130-400); RED BLOOD COUNT 4.25 M/uL (4.2-5.4); WHITE BLOOD COUNT 14.83 K/uL (4.8-10.8)
[2017-01-26 10:48] LABS: BUN/CREATININE RATIO 19.6 (10-20); CALCIUM 9.7 mg/dl (8.5-10.1); CREATININE 1.24 mg/dl (0.60-1.20); MAGNESIUM 1.7 mg/dl (1.8-2.4); POTASSIUM 4.5 mmol/L (3.5-5.1)
[2017-01-26] MEDS ORDERED: OPTIRAY 320 IV PRN (11:30)
[2017-01-26] MEDS ORDERED: PIPERACILLIN/TAZOBACTAM 4.5 GM/100ML D5W IV STA (11:46)
[2017-01-26] MEDS ORDERED: SODIUM CHLORIDE 0.9% 1000ML 1,000 ML IV STA (11:46)
--- NOTE | 2017-01-26 11:46 | DIAGNOSTIC IMAGING REPORT ---
ABDOMEN AND PELVIS CT WITH IV CONTRAST CT DOSE: 1094.92 mGy.cm HISTORY: Acute epigastric abdominal pain with nausea. Recent bowel resection. Here breast cancer. History of acute diverticulitis. Questioned colovesicular fistula on comparison PET CT. epigastric pain, nausea TECHNIQUE: Multiaxial CT images of the abdomen and pelvis were performed following the use of intravenous contrast. A dose lowering technique was utilized adhering to the principles of ALARA. COMPARISON STUDY: PET CT 10/25/2016, CT abdomen and pelvis 07/24/2016, CTA of the chest 07/08/2016, CT abdomen and pelvis 06/19/2016. FINDINGS: Subsegmental atelectasis of the dependent right lung base. 4 mm solid pulmonary nodule of the posterior basal segment right lower lobe, image 77 series 3 which is indeterminate. Imaged inferior cardiac chambers are unremarkable with coronary arterial calcifications seen. The liver, spleen, pancreas, gallbladder and adrenal glands are within normal limits. Mild nonspecific perinephric stranding is seen bilaterally. No renal calculi or hydronephrosis. There is mild wall thickening of the anterior urinary bladder likely reactive secondary to pelvic findings as described below. Moderate atherosclerosis of the abdominal aorta with prominent eccentric atheromatous plaque noted near the origin of the right renal artery which appears unchanged from study dated 06/19/2016. Mildly enlarged lymph node adjacent to the origin of the left common iliac artery measures 11 x 11 mm, image 244 series 3, previously 1.4 x 1.0 cm on study dated 07/24/2016 mildly enlarged 1.5 x 1.0 cm right external iliac lymph node is seen on image 33 series 3, previously 1.7 x 1.4 cm. No new adenopathy identified. Tiny sliding-type hilar hernia. There is no bowel obstruction. Postoperative findings from prior partial sigmoid colon resection and anastomosis. There is moderate circumferential wall thickening at the anastomotic site with pneumoperitoneum throughout the pelvis surrounding the anastomotic site and extending throughout the central pelvis. Additionally, there is a large multiloculated abscess containing air and fluid within the pelvis measuring up to 13.6 x 6.5 cm. Abscess is interposed between loops of adjacent bowel. Trace abdominal and pericolic ascites is likely reactive. Soft tissue prominence within the presacral tissues is also likely reactive. Mild colonic diverticulosis. Appendix appears normal. Soft tissues are unremarkable. Small fat filled ventral abdominal wall hernias are noted largest of which measure up to 1.3 cm. Indeterminate sclerotic bone lesions are again seen, notably within the left femoral neck and right sacral base which appear unchanged. IMPRESSION: 1. Postoperative changes from prior partial sigmoid colon resection. Findings compatible with anastomotic dehiscence with moderate wall thickening at the anastomotic site with pneumoperitoneum surrounding anastomosis and there is a large multiloculated fluid and air-containing abscess interposed between loops of bowel within the central pelvis measuring up to 13.6 x 6.5 cm. Surgical consultation is needed. 2. No bowel obstruction. 3. Additional stable findings as above. Findings were discussed with Vidhi Rod on 01/26/2017 at 11:42 AM Electronically signed by: Trav Gordon M.D. 01/26/2017 11:45 AM Dictated Date/Time: 01/26/2017 11:21 AM
[2017-01-26] MEDS ORDERED: CLON0.5T3 PO (12:13)
[2017-01-26 12:35] VITALS: BP 95/52; PULSE 86; O2SAT 97
[2017-01-26] MEDS ORDERED: LORAZEPAM 2 MG/ML 1 ML VIAL IV STA (12:36)
[2017-01-26] MEDS ORDERED: LORAZEPAM 2 MG/ML 1 ML VIAL ONE (12:38)
== END 2017-01-26 13:00 | disposition short-term general hospital (02) ==
LOC: C.EDB 09:56 → C.EDC 13:00
DX: K91.89 Other postprocedural complications and disorders of digestive system (principal); K65.1 Peritoneal abscess; E11.9 Type 2 diabetes mellitus without complications; Z79.84 Long term (current) use of oral hypoglycemic drugs; Z85.3 Personal history of malignant neoplasm of breast; Z87.891 Personal history of nicotine dependence; Z90.13 Acquired absence of bilateral breasts and nipples; Z80.9 Family history of malignant neoplasm, unspecified; Z82.49 Family history of ischemic heart disease and other diseases of the circulatory system

== ENCOUNTER → 2017-02-02 | Outpatient (CLI) | payer OTHER ==
[~2017-02-02] MED LIST changes: -ANAS1TAB19 PO; +ANAS1TAB59 PO; +CARV25TA2 PO; +CLON0.5T9 PO; +DOCU-94 PO; -LORA-741 PO; +ONDA4TAB65 PO; +POTA-639 PO; +RXC5 PEG
[2017-02-02 17:42] LABS: HEMATOCRIT 36.1 % (37-47); HEMOGLOBIN 11.1 g/dL (12.0-16.0); MEAN CELL VOLUME 97.3 fL (80-100); MEAN CORPUSCULAR HEMOGLOBIN 29.9 pg (25-34); MEAN CORPUSCULAR HGB CONC 30.7 g/dl (32-36); MEAN PLATELET VOLUME 9.9 fL (7.4-10.4); PLATELET COUNT 405 K/uL (130-400); RED CELL DISTRIBUTION WIDTH CV 14.6 % (11.5-14.5); WHITE BLOOD COUNT 14.93 K/uL (4.8-10.8)
[2017-02-02 18:09] LABS: BLOOD UREA NITROGEN 8 mg/dl (7-18); CALCIUM 8.5 mg/dl (8.5-10.1); CARBON DIOXIDE 28 mmol/L (21-32); CREATININE 0.87 mg/dl (0.60-1.20); GLUCOSE 131 mg/dl (70-99); POTASSIUM 3.5 mmol/L (3.5-5.1); SODIUM 136 mmol/L (136-145)
[2017-02-03 07:39] LABS: HEMOGLOBIN A1C 6.4 % (4.5-5.6)
== END | disposition home or self-care (01) ==
LOC: C.LABPVFM 12:59
PROVIDERS: ATTEND Family Medicine
DX: E11.9 Type 2 diabetes mellitus without complications (principal); L02.31 Cutaneous abscess of buttock

== ENCOUNTER 2017-02-10 21:05 | Inpatient (IN) | payer OTHER ==
[~2017-02-10] VITALS: Ht 167.6 cm; Wt 95.8 kg
[~2017-02-10 21:05] MED LIST changes: +ANAS1TAB19 PO; -ANAS1TAB59 PO; -CARV25TA2 PO; +CLON0.5T3 PO; -CLON0.5T9 PO; -DOCU-94 PO; -ONDA4TAB65 PO; -POTA-639 PO; -RXC5 PEG
[2017-02-10] MEDS ORDERED: MoRPHine SULFATE 4 MG/ML 1 ML CARP\\VIAL IV STA (21:23)
[2017-02-10] MEDS ORDERED: SODIUM CHLORIDE 0.9% 1000ML 1,000 ML IV ONE (21:23)
[2017-02-10] MEDS ORDERED: ONDANSETRON INJ 2 MG/ML 2 ML VIAL IV STA (21:23)
[2017-02-10] MEDS ORDERED: SODIUM CHLORIDE 0.9% 1000ML 1,000 ML IV STA (21:23)
[2017-02-10] MEDS ORDERED: HYDROmorphone INJ 1 MG/ML SYR IV STA (21:27)
[2017-02-10 21:48] LABS: BASO % 0.1 %; BASO ABS # 0.01 K/uL (0-0.2); EOS % 0.4 %; EOS ABS # 0.05 K/uL (0-0.5); HEMATOCRIT 33.9 % (37-47); HEMOGLOBIN 10.9 g/dL (12.0-16.0); IG# 0.09 K/uL (0.00-0.02); LYMPH % 11.8 %; LYMPH ABS # 1.44 K/uL (1.2-3.4); MEAN CELL VOLUME 94.7 fL (80-100); MEAN CORPUSCULAR HEMOGLOBIN 30.4 pg (25-34); MEAN CORPUSCULAR HGB CONC 32.2 g/dl (32-36); MEAN PLATELET VOLUME 9.1 fL (7.4-10.4); MONO % 8.1 %; MONO ABS # 0.99 K/uL (0.11-0.59); NEUT % 78.9 %; NEUT ABS # 9.67 K/uL (1.4-6.5); PLATELET COUNT 432 K/uL (130-400); RED CELL DISTRIBUTION WIDTH CV 14.8 % (11.5-14.5); RED CELL DISTRIBUTION WIDTH SD 51.6 fL (36.4-46.3); WHITE BLOOD COUNT 12.25 K/uL (4.8-10.8)
--- NOTE | 2017-02-10 21:48 | EMERGENCY ROOM VISIT NOTE ---
History Report prepared by Rupali: Imani Lo Under the Supervision of: Dr. Home Early M.D. First contact with patient: 21:11 Chief Complaint: PAIN (GENERALIZED) Stated Complaint: PAIN/POST OP History of Present Illness The patient is a 61 year old female who presents to the Emergency Room with complaints of persistent lower abdominal pain starting last night. She currently rates her discomfort as an 8/10 in severity. The patient had a laparoscopic colon resection 1 month ago. She was diagnosed with an intraabdominal abscess 2 weeks ago. The patient currently has an IR drain in her left buttock. Yesterday, she started having pain in her left buttock at the IR drain site. She had 10 episodes of diarrhea last night. Her diarrhea did not smell like C diff. She was recently on Zosyn and Flagyl. She is currently not on any antibiotics. She is nauseous. She denies any fever, chest pain, SOB, or vomiting. She has a history of breast cancer, CHF, and diverticulitis. Source of History: patient Onset: last night Position: abdomen (lower) Symptom Intensity: 8/10 Quality: other (pain) Timing: other (persistent) Associated Symptoms: + nausea, + diarrhea, No fevers, No chest pain, No SOB , No vomiting Note: Pt reports left buttock pain. Review of Systems See HPI for pertinent positives & negatives. A total of 10 systems reviewed and were otherwise negative. Past Medical & Surgical Medical Problems: (1) Abdominal pain (2) Acute diverticulitis (3) Acute hypoxemic respiratory failure (4) Acute respiratory failure with hypoxia (5) Colonic diverticular abscess (6) Diabetes (7) Diarrhea (8) Lumbar disc herniation with radiculopathy (9) Pneumonia (10) Shortness of breath (11) SOB (shortness of breath) Surgical Problems: (1) H/O bilateral mastectomy Family History Cancer Heart disease Hypertension Social History Smoking Status: Former Smoker Drug Use: none Marital Status: single Housing Status: lives alone Occupation Status: employed Current/Historical Medications Scheduled Anastrozole (Arimidex), 1 TAB PO DAILY Carvedilol (Coreg), 1 TAB PO BID Clonazepam (Klonopin), 1 TAB PO HS Furosemide (Lasix), 40 MG PO QAM Losartan Potassium (Cozaar), 25 MG PO BID Metformin Hcl (Glucophage Ext Rel), 500 MG PO QAM Multivitamin (Multivitamin), 1 TAB PO QAM Paroxetine HCl (Paroxetine), 30 MG PO QAM Potassium Chloride (Potassium Chloride ER), 20 MEQ PO QAM Prednisone (Prednisone), 5 MG PO QAM Scheduled PRN Acetaminophen (Tylenol), 1,000 MG PO Q6 PRN for Pain Allergies Coded Allergies: Aspirin (Verified Allergy, Mild, HIVES, 02/10/17) Ibuprofen (Verified Allergy, Mild, HIVES, 02/10/17) Tamoxifen (Verified Allergy, Unknown, TEMP LOSS OF VISION IN LEFT EYE, 02/10) Physical Exam Vital Signs Date Time Temp Pulse Resp B/P (MAP) Pulse Ox O2 Delivery O2 Flow Rate FiO2 02/10/17 21:50 87 16 100/56 95 Room Air 02/10/17 21:50 94 Nasal Cannula 2.0 02/10/17 21:16 83 02/10/17 21:10 36.7 83 16 100/56 96 Room Air Physical Exam General: Middle aged female in no acute distress. HEENT: Normal cephalic atraumatic. Pupils are equal round and reactive to light. Extraocular movements are intact. Oropharynx is pink with moist mucous membranes. No swelling of the mouth lips or tongue. Neck: Supple with a midline trachea. No meningeal signs or stiffness, no JVD or bruits. No Stridor. Chest: Clear to auscultation bilaterally. No wheezes or rhonchi. No increased work of breathing. Heart: regular rate and rhythm. Occasional PVC on monitor. Abdomen: Soft, nondistended without rebound guarding or rigidity. Well healing surgical incision, no tenderness. Drain in left buttock, minimal pink discoloration of skin and serosanguineous drainage. Extremities: No cyanosis clubbing or edema. No calf tenderness or assymetry Spine/Back. Non tender to palpation. No CVA tenderness Skin: Good turgor without rashes. Neurologic exam: Cranial nerves two through 12 are intact. Motor and sensation are intact and symmetrical throughout. Medical Decision & Procedures ER Provider Diagnostic Interpretation: X-ray results as stated below per interpretation by me and the radiologist: CHEST ONE VIEW PORTABLE CLINICAL HISTORY: Atypical chest pain COMPARISON STUDY: July 08, 2016 FINDINGS: The heart is at the upper limits of normal in size.. There is no evidence of focal pulmonary consolidation. There is no evidence of failure. No pleural effusions are visualized.[ Surgical clips are visualized in the left axillary region IMPRESSION: No active disease in the chest. Electronically signed by: Kirill Mujica M.D. 02/10/2017 10:08 PM Dictated Date/Time: 02/10/2017 10:07 PM Laboratory Results 02/10/17 21:35 Red Blood Count 3.58, Mean Corpuscular Volume 94.7, Mean Corpuscular Hemoglobin 30.4, Mean Corpuscular Hemoglobin Concent 32.2, Mean Platelet Volume 9.1, Neutrophils (%) (Auto) 78.9, Lymphocytes (%) (Auto) 11.8, Monocytes (%) (Auto) 8.1, Eosinophils (%) (Auto) 0.4, Basophils (%) (Auto) 0.1, Neutrophils # (Auto) 9.67, Lymphocytes # (Auto) 1.44, Monocytes # (Auto) 0.99, Eosinophils # (Auto) 0.05, Basophils # (Auto) 0.01 02/10/17 21:35 Test 02/10/17 21:35 02/10/17 21:45 White Blood Count 12.25 K/uL (4.8-10.8) Red Blood Count 3.58 M/uL (4.2-5.4) Hemoglobin 10.9 g/dL (12.0-16.0) Hematocrit 33.9 % (37-47) Mean Corpuscular Volume 94.7 fL (80-100) Mean Corpuscular Hemoglobin 30.4 pg (25-34) Mean Corpuscular Hemoglobin Concent 32.2 g/dl (32-36) Platelet Count 432 K/uL (130-400) Mean Platelet Volume 9.1 fL (7.4-10.4) Neutrophils (%) (Auto) 78.9 % Lymphocytes (%) (Auto) 11.8 % Monocytes (%) (Auto) 8.1 % Eosinophils (%) (Auto) 0.4 % Basophils (%) (Auto) 0.1 % Neutrophils # (Auto) 9.67 K/uL (1.4-6.5) Lymphocytes # (Auto) 1.44 K/uL (1.2-3.4) Monocytes # (Auto) 0.99 K/uL (0.11-0.59) Eosinophils # (Auto) 0.05 K/uL (0-0.5) Basophils # (Auto) 0.01 K/uL (0-0.2) RDW Standard Deviation 51.6 fL (36.4-46.3) RDW Coefficient of Variation 14.8 % (11.5-14.5) Immature Granulocyte % (Auto) 0.7 % Immature Granulocyte # (Auto) 0.09 K/uL (0.00-0.02) Anion Gap 10.0 mmol/L (3-11) Est Creatinine Clear Calc Drug Dose 75.4 ml/min Estimated GFR () 80.5 Estimated GFR (Non- 69.5 BUN/Creatinine Ratio 13.5 (10-20) Calcium Level 7.8 mg/dl (8.5-10.1) Total Bilirubin 0.4 mg/dl (0.2-1) Direct Bilirubin mg/dl (0-0.2) Aspartate Amino Transf (AST/SGOT) 18 U/L (15-37) Alanine Aminotransferase (ALT/SGPT) 9 U/L (12-78) Alkaline Phosphatase 100 U/L (45-117) Total Protein 6.6 gm/dl (6.4-8.2) Albumin 2.0 gm/dl (3.4-5.0) Lipase 56 U/L (73-393) Chemistry Specimen Hemolysis Bedside Lactic Acid Venous 3.30 mmol/L (0.90-1.70) Laboratory studies as stated above per my review. Medications Administered Medications (Trade) Dose Ordered Sig/Omkar Route Start Time Stop Time Status Last Admin Dose Admin Sodium Chloride 1,000 ml @ 999 mls/hr Q1H1M STAT IV 02/10/17 21:23 02/10/17 22:23 DC 02/10/17 21:35 999 MLS/HR Sodium Chloride 1,000 ml @ 150 mls/hr Q6H40M ONCE IV 02/10/17 21:23 02/11/17 00:33 DC 02/10/17 22:53 150 MLS/HR Ondansetron HCl (Zofran Inj) 4 mg NOW STAT IV 02/10/17 21:23 02/10/17 21:26 DC 02/10/17 21:34 4 MG Hydromorphone HCl (Dilaudid Inj) 1 mg NOW STAT IV 02/10/17 21:27 02/10/17 21:28 DC 02/10/17 21:34 1 MG ED Course 2110: Past medical records reviewed. The patient was evaluated in room B2, and a complete history and physical examination were performed. 2122: Zofran Inj 4 mg IV, NSS 1000 ml @ 150 mls/hr IV, NSS 1000 ml @ 999 mls/hr IV. 2126: Dilaudid Inj 1 mg IV. 2150: I reevaluated the patient. She is feeling much better. 2208: Upon reevaluation, the patient is feeling better. I discussed the results and treatment plan with the patient. She verbalized agreement of the treatment plan. The patient will be evaluated for further management. 223: I discussed the patient's case Dr. Matute, [facility] [place] hospitalist. The patient will be evaluated for further management. 225: I reevaluated the patient. Medical Decision Differentials include, but are not limited to; dehydration, electrolyte or metabolic abnormality, diarrhea, C diff. This patient comes in as described above. She was placed in room B2. She's had a complicated medical history as of late she had intra-abdominal abscess that was operated on and she has a drain in her left buttocks. She's had diarrhea and has had pain she does not any pain medicine home at present she denies any fever. IV access was established and she was hydrated IV normal saline here multiple blood testing was obtained including blood cultures. Chest x-ray was obtained. She was reassessed frequently. She was given IV Dilaudid and IV Zofran for pain and nausea management. She was starting to feel significantly better after the meds and fluids. She had no further pain. She has no significant electrolyte or metabolic abnormalities. She's had several CAT scans recently and would like to hold off and I think this is reasonable for now with plans to hydrate her and observe her. Her lactic acid initially was moderately elevated and this may be related hydration at this point she has no fever or hypotension. She has had a mildly elevated white count. I do think she is be observed for hydration and further treatment and evaluation have consulted the hospitalist to see her. Medication Reconcilliation Current Medication List: was personally reviewed by me Blood Pressure Screening Patient's blood pressure: Normal blood pressure Blood pressure disposition: Did not require urgent referral Consults Time Called: 2212 Consulting Physician: Dr. Matute [facility] [place] hospitalist Returned Call: 2230 Discussed the patient's case. The patient will be evaluated for further management. Impression Primary Impression: Diarrhea Additional Impression: Dehydration Scribe Attestation The scribe's documentation has been prepared under my direction and personally reviewed by me in its entirety. I confirm that the note above accurately reflects all work, treatment, procedures, and medical decision making performed by me. Departure Information Dispostion Being Evaluated By Hospitalist Referrals No Doctor, Assigned (PCP) Patient Instructions My [facility] Problem Qualifiers
[2017-02-10 22:07] LABS: CALCIUM 7.8 mg/dl (8.5-10.1); CREATININE 0.89 mg/dl (0.60-1.20); POTASSIUM 3.4 mmol/L (3.5-5.1)
--- NOTE | 2017-02-10 22:09 | DIAGNOSTIC IMAGING REPORT ---
CHEST ONE VIEW PORTABLE CLINICAL HISTORY: Atypical chest pain COMPARISON STUDY: July 08, 2016 FINDINGS: The heart is at the upper limits of normal in size.. There is no evidence of focal pulmonary consolidation. There is no evidence of failure. No pleural effusions are visualized.[ Surgical clips are visualized in the left axillary region IMPRESSION: No active disease in the chest. Electronically signed by: Kirill Mujica M.D. 02/10/2017 10:08 PM Dictated Date/Time: 02/10/2017 10:07 PM
[2017-02-10 22:19] LABS: TOTAL PROTEIN 6.6 gm/dl (6.4-8.2)
[2017-02-10] MEDS ORDERED: ZOLPIDEM TARTRATE 5 MG TAB PO PRN (22:30)
[2017-02-10] MEDS ORDERED: ALUMINUM/MAGNESIUM/SIMETH (MAALOX MAX) 30 ML UDC PO PRN (22:30)
[2017-02-10] MEDS ORDERED: ACETAMINOPHEN 325 MG TAB PO PRN (22:30)
--- NOTE | 2017-02-10 23:49 | History and Physical ---
History & Physical Date & Time of Service: Feb 10, 2017 at 23:19 Chief Complaint: Pain/Post Op Primary Care Physician: Colleen Dumont M.D. History of Present Illness Source: patient 61 y/o F Hx breast CA, systolic CHF, DM II. Pt had surgery for sigmoid diverticulitis in [place] Jan 02. 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 Additionally, she developed a gluteal abscess as a complication and currently has a drain in place. She was treated with Zosyn and Vancomycin perioperatively. She had been home and recovering well until 2 days ago when she developed diarrhea and lower abdominal pain. There is no blood in her stool and she denies nausea, vomiting, fevers or rigors. Initial labs reveal an elevated lactic acid. Past Medical/Surgical History 1) DM II 2) Breast CA - had a R mastectomy 20 years ago and L mastectomy with recurrence 06/21. She recently completed radiation treatment. 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 4) Chronic urticaria - has been taking a low dose of prednisone for 20 yrs Family History Cancer Heart disease Hypertension Social History Smoking Status: Former Smoker Drug Use: none Marital Status: single Housing status: lives alone Occupational Status: employed Immunizations History of Tetanus Vaccine?: APPROX 10 YRS AGO History of Pneumococcal: No History of Hepatitis B Vaccine: YES UNKNOWN DATE Multi-Drug Resistant Organisms History of MDRO: No Allergies Coded Allergies: Aspirin (Verified Allergy, Mild, HIVES, 02/10/17) Ibuprofen (Verified Allergy, Mild, HIVES, 02/10/17) Tamoxifen (Verified Allergy, Unknown, TEMP LOSS OF VISION IN LEFT EYE, 02/10) Home Medications Scheduled Anastrozole (Arimidex), 1 TAB PO DAILY Carvedilol (Coreg), 1 TAB PO BID Clonazepam (Klonopin), 1 TAB PO HS Furosemide (Lasix), 40 MG PO QAM Losartan Potassium (Cozaar), 25 MG PO BID Metformin Hcl (Glucophage Ext Rel), 500 MG PO QAM Multivitamin (Multivitamin), 1 TAB PO QAM Paroxetine HCl (Paroxetine), 30 MG PO QAM Potassium Chloride (Potassium Chloride ER), 20 MEQ PO QAM Prednisone (Prednisone), 5 MG PO QAM Scheduled PRN Acetaminophen (Tylenol), 1,000 MG PO Q6 PRN for Pain Review of Systems Constitutional: No fever, No chills, No sweats Eyes: No worsening of vision ENT: No hearing loss, No nasal symptoms Respiratory: No cough, No wheezing Cardiovascular: No chest pain, No PND Abdomen: + pain, + diarrhea, No nausea, No vomiting Musculoskeletal: No joint pain Genitourinary - Female: No dysuria, No urinary frequency, No urinary urgency Neurologic: No memory loss, No paralysis, No weakness Psychiatric: No depression symptoms Endocrine: No fatigue Hematologic / Lymphatic: No abnormal bleeding/bruising Integumentary: No rash Allergic / Immunologic: No environmental allergies Physical Exam Vital Signs Date Time Temp Pulse Resp B/P (MAP) Pulse Ox O2 Delivery O2 Flow Rate FiO2 02/10/17 21:50 87 16 100/56 95 Room Air 02/10/17 21:50 94 Nasal Cannula 2.0 02/10/17 21:16 83 02/10/17 21:10 36.7 83 16 100/56 96 Room Air General Appearance: WD/WN, + pertinent finding (Overweight, middle-aged female in no distress) Head: normocephalic Eyes: normal inspection ENT: normal ENT inspection, pharynx normal Neck: supple Respiratory/Chest: chest non-tender, lungs clear, normal breath sounds Cardiovascular: regular rate, rhythm, no edema, no gallop Abdomen/GI: normal bowel sounds, non tender, soft Back: normal inspection, no CVA tenderness, + pertinent finding (There is a drain in the L gluteal area - there is no surrounding tenderness) Extremities/Musculoskelatal: normal inspection, no calf tenderness, normal capillary refill Neurologic/Psych: block handler II-XII nml as tested, no motor/sensory deficits, alert, oriented x 3 Skin: normal color Diagnostics Laboratory Results Results Past 24 Hours Test 02/10/17 21:35 02/10/17 21:45 Range/Units White Blood Count 12.25 4.8-10.8 K/uL Red Blood Count 3.58 4.2-5.4 M/uL Hemoglobin 10.9 12.0-16.0 g/dL Hematocrit 33.9 37-47 % Mean Corpuscular Volume 94.7 80-100 fL Mean Corpuscular Hemoglobin 30.4 25-34 pg Mean Corpuscular Hemoglobin Concent 32.2 32-36 g/dl Platelet Count 432 130-400 K/uL Mean Platelet Volume 9.1 7.4-10.4 fL Neutrophils (%) (Auto) 78.9 % Lymphocytes (%) (Auto) 11.8 % Monocytes (%) (Auto) 8.1 % Eosinophils (%) (Auto) 0.4 % Basophils (%) (Auto) 0.1 % Neutrophils # (Auto) 9.67 1.4-6.5 K/uL Lymphocytes # (Auto) 1.44 1.2-3.4 K/uL Monocytes # (Auto) 0.99 0.11-0.59 K/uL Eosinophils # (Auto) 0.05 0-0.5 K/uL Basophils # (Auto) 0.01 0-0.2 K/uL RDW Standard Deviation 51.6 36.4-46.3 fL RDW Coefficient of Variation 14.8 11.5-14.5 % Immature Granulocyte % (Auto) 0.7 % Immature Granulocyte # (Auto) 0.09 0.00-0.02 K/uL Sodium Level 135 136-145 mmol/L Potassium Level 3.4 3.5-5.1 mmol/L Chloride Level 99 98-107 mmol/L Carbon Dioxide Level 27 21-32 mmol/L Anion Gap 10.0 3-11 mmol/L Blood Urea Nitrogen 12 7-18 mg/dl Creatinine 0.89 0.60-1.20 mg/dl Est Creatinine Clear Calc Drug Dose 75.4 ml/min Estimated GFR () 80.5 Estimated GFR (Non- 69.5 BUN/Creatinine Ratio 13.5 10-20 Random Glucose 162 70-99 mg/dl Calcium Level 7.8 8.5-10.1 mg/dl Total Bilirubin 0.4 0.2-1 mg/dl Direct Bilirubin 0-0.2 mg/dl Aspartate Amino Transf (AST/SGOT) 18 15-37 U/L Alanine Aminotransferase (ALT/SGPT) 9 12-78 U/L Alkaline Phosphatase 100 45-117 U/L Total Protein 6.6 6.4-8.2 gm/dl Albumin 2.0 3.4-5.0 gm/dl Lipase 56 73-393 U/L Chemistry Specimen Hemolysis Bedside Lactic Acid Venous 3.30 0.90-1.70 mmol/L Impression Assessment and Plan 61 y/o F Hx breast CA, systolic CHF, DM II. Pt had surgery for sigmoid diverticulitis in [place] Jan 02. 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 Additionally, she developed a gluteal abscess as a complication and currently has a drain in place. She was treated with Zosyn and Vancomycin perioperatively. She had been home and recovering well until 2 days ago when she developed diarrhea and lower abdominal pain. There is no blood in her stool and she denies nausea, vomiting, fevers or rigors. Initial labs reveal an elevated lactic acid. 1) Diarrhea and abdominal pain - there is concern for C diff considering recent hospitalization and broad-spectrum abx - toxin study is pending. The abdominal exam is benign and the pt is comfortable following a dose of narcotics. Considering her recent surgery, we would request a CT abdomen if there is recurrence of her pain or lack of improvement and the C diff study is negative. 2) CHF - she is clinically dehydrate. Her Lasix is held pending AM assessment. We will provide gentle hydration. Cont B jasno, Losartan 3) DM II - placed on a sliding scale. 4) Gluteal abscess - a drain remains in place - she will dicontinue this when output is below 10cc daily 5) Breast CA - cont Anastrazole Full code - Heparin prophylaxis - total time for this admit including review of labs, meds records - discussion with pt and ER attending - 40 min Level of Care Med/Surg Resuscitation Status FULL RESUSCITATION VTE Prophylaxis VTE Risk Assessment Done? Y/N: Yes Risk Level: Moderate Given or contraindicated: Unfractionated heparin SQ
[2017-02-10 23:57] VITALS: BP 87/52; PULSE 92; TEMP 36.9; O2SAT 91; BMI 33.8
[2017-02-11] MEDS ORDERED: NSS + 20MEQ KCL 1000ML 1,000 ML IV SCH
[2017-02-11] MEDS ORDERED: HYDROmorphone INJ 1 MG/ML SYR ONE (00:11)
[2017-02-11] MEDS ORDERED: GLUCOSE 40% GEL 15 GM TUBE PO PRN (00:45)
[2017-02-11] MEDS ORDERED: DEXTROSE 50% 50 ML SYR IV PRN (00:45)
[2017-02-11] MEDS ORDERED: GLUCAGON FOR INJ 1 MG VIAL SQ PRN (00:45)
[2017-02-11] MEDS ORDERED: GLUCOSE 10 TABS/TUBE PO PRN (00:45)
[2017-02-11] MEDS: ONDANSETRON INJ 2 MG/ML 2 ML VIAL IV PRN ×3 (03:40→21:05)
[2017-02-11] MEDS: HYDROmorphone INJ 1 MG/ML SYR IV PRN ×6 (04:38→21:06)
[2017-02-11 06:28] LABS: HEMATOCRIT 33.3 % (37-47); HEMOGLOBIN 10.3 g/dL (12.0-16.0); MEAN CORPUSCULAR HEMOGLOBIN 29.7 pg (25-34); MEAN CORPUSCULAR HGB CONC 30.9 g/dl (32-36); MEAN PLATELET VOLUME 8.9 fL (7.4-10.4); PLATELET COUNT 331 K/uL (130-400); RED CELL DISTRIBUTION WIDTH CV 15.1 % (11.5-14.5); RED CELL DISTRIBUTION WIDTH SD 53.1 fL (36.4-46.3); WHITE BLOOD COUNT 9.66 K/uL (4.8-10.8)
[2017-02-11] MEDS: INSULIN ASPART 100 UNITS/ML 3 ML PEN SC SCH ×4 (06:30→21:00)
[2017-02-11 06:37] LABS: INR 1.3 (0.9-1.1)
[2017-02-11 07:03] LABS: CALCIUM 7.7 mg/dl (8.5-10.1); CREATININE 0.65 mg/dl (0.60-1.20); POTASSIUM 3.3 mmol/L (3.5-5.1)
[2017-02-11] MEDS: IV FLUIDS COMPLETED PRN ×2 (07:32→10:20)
[2017-02-11] MEDS ORDERED: LOSARTAN POTASSIUM 25 MG TAB PO SCH (08:00)
[2017-02-11] MEDS ORDERED: ANASTROZOLE 1 MG TAB PO SCH (08:00)
[2017-02-11] MEDS ORDERED: MAGNESIUM SULFATE 1GM / D5W 1 GM in PREMIXED IN D5W 100 ML IV ONE (08:15)
[2017-02-11 08:31] VITALS: BP 100/65; PULSE 88; TEMP 37; O2SAT 91
[2017-02-11] MEDS: CARVEDILOL 25 MG TAB PO SCH ×2 (08:35→08:38)
[2017-02-11] MEDS: HEPARIN SOD 5000 UNIT/0.5 ML CARP SQ SCH ×3 (08:36→21:13)
[2017-02-11] MEDS: POTASSIUM CHLORIDE 20 MEQ TABCR PO SCH ×3 (08:38→21:10)
[2017-02-11] MEDS: PAROXETINE 20 MG TAB PO SCH (08:38)
[2017-02-11 11:32] VITALS: BP 89/57; PULSE 81; TEMP 36.9
[2017-02-11] MEDS ORDERED: OPTIRAY 320 IV PRN (12:45)
[2017-02-11] MEDS: HYDROCORTISONE IV 50 MG in SYRINGE 0 ML IV SCH ×2 (14:40→21:14)
--- NOTE | 2017-02-11 15:03 | DIAGNOSTIC IMAGING REPORT ---
CT OF THE ABDOMEN AND PELVIS WITH CONTRAST CLINICAL HISTORY: pt with recent bowel abscess and IR drain in place, worsening pain COMPARISON STUDY: CT of the abdomen and pelvis January 26, 2017. TECHNIQUE: Following IV administration of 118 mL of [id number]-[id number], axial images of the abdomen and pelvis were obtained from the lung bases to the proximal femurs. Images were reviewed in the axial, sagittal, and coronal planes. IV contrast was administered without complication. A dose lowering technique was utilized adhering to the principles of ALARA. Oral contrast was administered. CT DOSE: 975.00 mGy.cm FINDINGS: Lung bases are clear. There is probable fatty infiltration of the liver. There may be small gallstones within the gallbladder without evidence of acute cholecystitis by CT. The spleen, adrenal glands, kidneys and pancreas are unremarkable. There is no biliary or pancreatic ductal dilatation. There is no hydronephrosis. The nephrograms are symmetric. No enlarged abdominal or pelvic lymph nodes are present. There is no pneumatosis or portal venous gas. There are postoperative findings consistent with a sigmoid resection. An adjacent posterior pelvic rim enhancing fluid collection which extends superiorly into the mesentery is noted. There has been interval placement of a percutaneous drain through a left transgluteal approach. Drain appears appropriately positioned. Multiloculated pelvic abscess is noted. The inferior component measures 9.2 x 5.4 cm. This communicates with a more superior component that measures 10.3 x 8.5 cm. The superior component contains mostly gas. There is gas and fluid within the inferior component. There is moderate adjacent infiltration. A smaller suspected right lower quadrant abscess measures 2.8 cm. Sclerotic lesions within the left femoral neck and right inferior sacrum remain unchanged. A suspected mild superior endplate T12 compression fracture is new. IMPRESSION: 1. Interval placement of a percutaneous pelvic abscess pigtail catheter through a left transgluteal approach for a suspected anastomotic leak from sigmoid resection. Drain appears appropriately positioned within a large multiloculated abscess. The findings suggest a partially drained abscess which is more well-defined than on exam of January 26, 2017. Drain located within inferior component of collection. A few smaller adjacent abscesses with moderate adjacent infiltration. 2. No bowel obstruction. 3. Suspected mild superior endplate T12 compression fracture which is likely acute. Electronically signed by: Gabe Ramirez M.D. 02/11/2017 3:02 PM Dictated Date/Time: 02/11/2017 2:39 PM
--- NOTE | 2017-02-11 15:19 | Progress Note ---
Subjective Date of Service: Feb 11, 2017. Subjective pt still has some abdominal pain especially when she moves or repositions, diarrhea has lessened Problem List Medical Problems: (1) CHF (congestive heart failure) Status: Acute (2) CHF exacerbation Status: Acute (3) Congestive heart failure Status: Acute (4) Dehydration Status: Acute (5) Diverticulitis of intestine with perforation and abscess Status: Acute (6) Elevated WBC count Status: Acute (7) Frequent PVCs Status: Acute Review of Systems Constitutional: No fever, No chills Respiratory: No cough, No shortness of breath, No dyspnea on exertion Cardiac: No chest pain, No edema Abdomen: + pain, + diarrhea, No nausea, No vomiting, No constipation Musculoskeletal: No joint pain, No muscle pain Psychiatric: No depression symptoms, No anhedonism, No anxiety Objective Vital Signs Date Time Temp Pulse Resp B/P (MAP) Pulse Ox O2 Delivery O2 Flow Rate FiO2 02/11/17 11:41 Room Air 02/11/17 11:32 36.9 81 20 89/57 (68) 02/11/17 08:31 37.0 88 18 100/65 (77) 91 Room Air 02/10/17 23:57 36.9 92 20 87/52 91 Room Air 02/10/17 23:23 16 100/56 02/10/17 21:50 87 16 100/56 95 Room Air 02/10/17 21:50 94 Nasal Cannula 2.0 02/10/17 21:16 83 02/10/17 21:10 36.7 83 16 100/56 96 Room Air Physical Exam General Appearance: WD/WN, + mild distress, + obese Respiratory/Chest: chest non-tender, lungs clear, normal breath sounds Cardiovascular: regular rate, rhythm, no murmur Abdomen: soft, + abnormal bowel sounds, + tenderness Extremities: non-tender, no pedal edema, no calf tenderness Neurologic/Psychiatric: alert, oriented x 3 Laboratory Results Last 24 Hours Test 02/10/17 21:35 02/10/17 21:45 02/11/17 03:40 02/11/17 06:16 White Blood Count 12.25 K/uL 9.66 K/uL Red Blood Count 3.58 M/uL 3.47 M/uL Hemoglobin 10.9 g/dL 10.3 g/dL Hematocrit 33.9 % 33.3 % Mean Corpuscular Volume 94.7 fL 96.0 fL Mean Corpuscular Hemoglobin 30.4 pg 29.7 pg Mean Corpuscular Hemoglobin Concent 32.2 g/dl 30.9 g/dl Platelet Count 432 K/uL 331 K/uL Mean Platelet Volume 9.1 fL 8.9 fL Neutrophils (%) (Auto) 78.9 % Lymphocytes (%) (Auto) 11.8 % Monocytes (%) (Auto) 8.1 % Eosinophils (%) (Auto) 0.4 % Basophils (%) (Auto) 0.1 % Neutrophils # (Auto) 9.67 K/uL Lymphocytes # (Auto) 1.44 K/uL Monocytes # (Auto) 0.99 K/uL Eosinophils # (Auto) 0.05 K/uL Basophils # (Auto) 0.01 K/uL RDW Standard Deviation 51.6 fL 53.1 fL RDW Coefficient of Variation 14.8 % 15.1 % Immature Granulocyte % (Auto) 0.7 % Immature Granulocyte # (Auto) 0.09 K/uL Sodium Level 135 mmol/L 137 mmol/L Potassium Level 3.4 mmol/L 3.3 mmol/L Chloride Level 99 mmol/L 103 mmol/L Carbon Dioxide Level 27 mmol/L 27 mmol/L Anion Gap 10.0 mmol/L 7.0 mmol/L Blood Urea Nitrogen 12 mg/dl 11 mg/dl Creatinine 0.89 mg/dl 0.65 mg/dl Est Creatinine Clear Calc Drug Dose 75.4 ml/min 100.6 ml/min Estimated GFR () 80.5 110.3 Estimated GFR (Non- 69.5 95.2 BUN/Creatinine Ratio 13.5 17.6 Random Glucose 162 mg/dl 126 mg/dl Calcium Level 7.8 mg/dl 7.7 mg/dl Total Bilirubin 0.4 mg/dl Direct Bilirubin mg/dl Aspartate Amino Transf (AST/SGOT) 18 U/L Alanine Aminotransferase (ALT/SGPT) 9 U/L Alkaline Phosphatase 100 U/L Total Protein 6.6 gm/dl Albumin 2.0 gm/dl Lipase 56 U/L Chemistry Specimen Hemolysis Bedside Lactic Acid Venous 3.30 mmol/L Urine Color DK YELLOW Urine Appearance CLOUDY Urine pH 5.0 Urine Specific [place] 1.024 Urine Protein 1+ Urine Glucose (UA) NEG Urine Ketones TRACE Urine Occult Blood NEG Urine Nitrite NEG Urine Bilirubin NEG Urine Urobilinogen NEG Urine Leukocyte Esterase MODERATE Urine WBC (Auto) >30 /hpf Urine RBC (Auto) 0-4 /hpf Urine Hyaline Casts (Auto) >30 /lpf Urine Epithelial Cells (Auto) >30 /lpf Urine Bacteria (Auto) NEG Urine Renal Epithelial Cells /lpf Urine Pathogenic Casts 1-5 GRANULAR CASTS /lpf Urine Yeast (Auto) Prothrombin Time 13.4 SECONDS Prothromb Time International Ratio 1.3 Lactic Acid Level 0.9 mmol/L Magnesium Level 1.3 mg/dl Test 02/11/17 07:46 02/11/17 11:32 Bedside Glucose 121 mg/dl 136 mg/dl Assessment and Plan 61 y/o F with recent IR placement of drain of para anastamotic colic abscess that occured after bowel resection for recurrent diverticulitis. Hx breast CA , systolic CHF, DM II. Originally had surgery for sigmoid diverticulitis in [place] Jan 02. 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 Additionally, she developed a gluteal abscess as a complication and currently has a drain in place. She was treated with Zosyn and Vancomycin perioperatively. She had been home and recovering well until 2 days ago when she developed diarrhea and lower abdominal pain. Diarrhea and abdominal pain - Negaitve C diff considering, CT abdomen shows good drain placement but persistent phlegmon chronic systolic CHF - she is clinically dehydrate. Her Lasix is held and due to lower blood pressure holding B jason, Losartan DM II - placed on a sliding scale. Gluteal abscess - a drain remains in place - she will discontinue this when output is below 10cc daily Breast CA - cont Anastrazole Full code - Heparin prophylaxis -
[2017-02-11 16:00] VITALS: BP 94/53; PULSE 73; TEMP 37; O2SAT 91
[2017-02-11] MEDS: ANASTROZOLE 1 MG TAB PO SCH (17:49)
[2017-02-11 19:59] VITALS: BP 114/71; PULSE 87; TEMP 36.8; O2SAT 89
[2017-02-11] MEDS: CLONAZEPAM 0.5 MG TAB PO SCH (21:09)
[2017-02-11 22:54] VITALS: BP 105/65; PULSE 87; TEMP 36.9; O2SAT 86
[2017-02-12 04:10] VITALS: BP 122/80; PULSE 80; TEMP 36.8; O2SAT 94
[2017-02-12] MEDS: HYDROCORTISONE IV 50 MG in SYRINGE 0 ML IV SCH ×2 (06:03→14:37)
[2017-02-12] MEDS: HEPARIN SOD 5000 UNIT/0.5 ML CARP SQ SCH ×3 (06:03→21:08)
[2017-02-12 07:37] VITALS: BP 111/64; PULSE 84; TEMP 36.8; O2SAT 95
[2017-02-12 07:38] VITALS: BMI 33.7
[2017-02-12] MEDS: INSULIN ASPART 100 UNITS/ML 3 ML PEN SC SCH ×4 (07:57→21:07)
[2017-02-12] MEDS: POTASSIUM CHLORIDE 20 MEQ TABCR PO SCH (08:57)
[2017-02-12] MEDS: PAROXETINE 20 MG TAB PO SCH (08:57)
[2017-02-12] MEDS ORDERED: RXC5 PEG (09:09)
[2017-02-12] MEDS ORDERED: ONDA4TAB65 PO (09:09)
[2017-02-12] MEDS: ONDANSETRON INJ 2 MG/ML 2 ML VIAL IV PRN (09:23)
[2017-02-12] MEDS: OXYCODONE HCL IR 5 MG TAB (IMMEDIATE RELEASE) PO PRN (09:30)
[2017-02-12 10:26] LABS: CALCIUM 8.3 mg/dl (8.5-10.1); CREATININE 0.62 mg/dl (0.60-1.20); POTASSIUM 4.1 mmol/L (3.5-5.1)
[2017-02-12 11:54] VITALS: BP 95/58; PULSE 71; TEMP 36.7; O2SAT 93
[2017-02-12] MEDS ORDERED: NURSING VERBAL MED ORDER ONE (12:15)
[2017-02-12] MEDS: HYDROmorphone INJ 1 MG/ML SYR IV PRN ×3 (12:25→23:53)
[2017-02-12 14:10] VITALS: BMI 33.7
[2017-02-12 15:18] VITALS: BP_SYST 110; BP_SYST 149; BP_DIAS 64; BP_DIAS 82; PULSE 69; PULSE 78; TEMP 36.6; TEMP 36.8; O2SAT 90; O2SAT 93
--- NOTE | 2017-02-12 16:30 | Progress Note ---
Subjective Date of Service: Feb 12, 2017. Subjective pt is having intermittent 7/10 sharp lower quadrent pain, seemingly unrelated to eating or movement. she is concerned about constipation. Problem List Medical Problems: (1) CHF (congestive heart failure) Status: Acute (2) CHF exacerbation Status: Acute (3) Congestive heart failure Status: Acute (4) Dehydration Status: Acute (5) Diverticulitis of intestine with perforation and abscess Status: Acute (6) Elevated WBC count Status: Acute (7) Frequent PVCs Status: Acute Review of Systems Constitutional: + weakness, + fatigue, No fever, No chills Respiratory: No cough, No shortness of breath, No dyspnea on exertion Cardiac: No chest pain, No edema Abdomen: + pain, + constipation, No nausea, No vomiting, No diarrhea Neurologic: No memory loss, No paralysis, No weakness Psychiatric: No depression symptoms, No anhedonism Objective Vital Signs Date Time Temp Pulse Resp B/P (MAP) Pulse Ox O2 Delivery O2 Flow Rate FiO2 02/12/17 15:18 36.6 69 16 110/64 (79) 93 02/12/17 11:54 36.7 71 18 95/58 (70) 93 Room Air 02/12/17 08:00 Room Air 02/12/17 07:37 36.8 84 20 111/64 (80) 95 Room Air 02/12/17 04:10 36.8 80 20 122/80 (94) 94 Room Air 02/12/17 00:20 Room Air 02/11/17 22:54 36.9 87 20 105/65 (78) 86 Room Air 02/11/17 19:59 36.8 87 20 114/71 (85) 89 Room Air Physical Exam General Appearance: WD/WN, + moderate distress Respiratory/Chest: chest non-tender, lungs clear, normal breath sounds Cardiovascular: regular rate, rhythm, no murmur Abdomen: normal bowel sounds, soft, + tenderness Extremities: no pedal edema, no calf tenderness Neurologic/Psychiatric: alert, oriented x 3 Laboratory Results Last 24 Hours Test 02/11/17 16:37 02/11/17 20:15 02/12/17 07:54 02/12/17 09:24 Bedside Glucose 135 mg/dl 148 mg/dl 135 mg/dl Sodium Level 137 mmol/L Potassium Level 4.1 mmol/L Chloride Level 101 mmol/L Carbon Dioxide Level 26 mmol/L Anion Gap 9.0 mmol/L Blood Urea Nitrogen 9 mg/dl Creatinine 0.62 mg/dl Est Creatinine Clear Calc Drug Dose 109.1 ml/min Estimated GFR () 112.0 Estimated GFR (Non- 96.6 BUN/Creatinine Ratio 15.0 Random Glucose 165 mg/dl Calcium Level 8.3 mg/dl Magnesium Level 1.9 mg/dl Test 02/12/17 11:48 Bedside Glucose 164 mg/dl Assessment and Plan 61 y/o F with recent IR placement of drain of para anastomotic colic abscess that occurred after bowel resection for recurrent diverticulitis. Hx breast CA , systolic CHF, DM II. Originally had surgery for sigmoid diverticulitis in [place] Jan 02. 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 Additionally, she developed a gluteal abscess as a complication and currently has a drain in place. She was treated with Zosyn and Vancomycin perioperatively. 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 Diarrhea and abdominal pain - Negaitve C diff , no further diarrhea and now concern for constipation, CT abdomen shows good drain placement but persistent phlegmon chronic systolic CHF - her lasix and cardiac meds are held due to lower blood pressure DM II - placed on a sliding scale. Gluteal abscess - a drain remains in place -she continues to drain and needs irrigated, wound care will be involved in dressing changes she will discontinue this when output is below 10cc daily Breast CA - cont Anastrazole Full code - Heparin prophylaxis -
[2017-02-12] MEDS: ANASTROZOLE 1 MG TAB PO SCH (17:40)
[2017-02-12 19:38] VITALS: BP 121/70; PULSE 66; TEMP 37.5; O2SAT 93
[2017-02-12] MEDS: CLONAZEPAM 0.5 MG TAB PO SCH (21:03)
[2017-02-12 23:20] VITALS: BP 108/61; PULSE 81; TEMP 36.7; O2SAT 96
[2017-02-13 03:30] VITALS: BP 121/72; PULSE 68; TEMP 36.9; O2SAT 95
[2017-02-13] MEDS: OXYCODONE HCL IR 5 MG TAB (IMMEDIATE RELEASE) PO PRN (03:37)
[2017-02-13] MEDS: HEPARIN SOD 5000 UNIT/0.5 ML CARP SQ SCH (06:26)
[2017-02-13 06:35] VITALS: Ht 167.6 cm; Wt 95.8 kg
[2017-02-13 07:20] VITALS: BP 133/72; PULSE 66; TEMP 36.5; O2SAT 96
[2017-02-13] MEDS: POTASSIUM CHLORIDE 20 MEQ TABCR PO SCH (09:13)
[2017-02-13] MEDS: INSULIN ASPART 100 UNITS/ML 3 ML PEN SC SCH (09:15)
[2017-02-13] MEDS ORDERED: DOCU-94 PO (10:11)
--- NOTE | 2017-02-13 10:13 | Discharge Instructions ---
Discharge Instructions Date of Service Feb 13, 2017. Admission Reason for Admission: Abdominal Pain, Diarrhea Discharge Discharge Diagnosis / Problem: diarrhea, possibly viral gastroenteritis Discharge Goals Goal(s): Diagnostic testing, Therapeutic intervention Activity Recommendations Activity Limitations: resume your previous activity . Instructions / Follow-Up Instructions / Follow-Up your CT scan showed evidence of resolving changes where the drains are, and little else. given the diarrhea and worsening pain when you arrived, followed by essentially a spontaneous resolution without any true intervention on our part, it's actually quite likely that you simply got a viral gastroenteritis ( or less likely a mild case of food poisoning) on top of the currently complicated abdominal history you're healing from. obviously if anything worsens we'd want you checked out right away, but it appears that your body is taking care of things on its own at this point. Current Hospital Diet Patient's current hospital diet: Diabetes Type 2 Diet Discharge Diet Recommended Diet: Diabetes Type 2 Diet Pending Studies Studies pending at discharge: no Laboratory Results Hemoglobin A1c Test 02/02/17 13:20 Range/Units Estimated Average Glucose 137 mg/dl Hemoglobin A1c 6.4 H 4.5-5.6 % Medical Emergencies . Who to Call and When: Medical Emergencies: If at any time you feel your situation is an emergency, please call 911 immediately. . Non-Emergent Contact Non-Emergency issues call your: Primary Care Provider, Surgeon . . "Provider Documentation" section prepared by Tj Metzger. . VTE Core Measure Inpt VTE Proph given/why not?: Unfractionated heparin SQ
[2017-02-13 10:20] VITALS: BP 133/72; PULSE 66; TEMP 36.5; O2SAT 96
[2017-02-13] MEDS: PAROXETINE 20 MG TAB PO SCH (10:41)
--- NOTE | 2017-02-13 18:40 | Discharge Summary ---
Discharge Summary Date of Service Feb 13, 2017. Discharge Summary Admission Date: Feb 12, 2017 at 09:17 Discharge Date: Feb 13, 2017 Discharge Disposition: Home Principal Diagnosis: abdominal pain and diarrhea Immunizations: History of Tetanus Vaccine?: APPROX 10 YRS AGO History of Pneumococcal: No History of Hepatitis B Vaccine: YES UNKNOWN DATE Procedures: CT OF THE ABDOMEN AND PELVIS WITH CONTRAST CLINICAL HISTORY: pt with recent bowel abscess and IR drain in place, worsening pain COMPARISON STUDY: CT of the abdomen and pelvis January 26, 2017. TECHNIQUE: Following IV administration of 118 mL of [id number]-[id number], axial images of the abdomen and pelvis were obtained from the lung bases to the proximal femurs. Images were reviewed in the axial, sagittal, and coronal planes. IV contrast was administered without complication. A dose lowering technique was utilized adhering to the principles of ALARA. Oral contrast was administered. CT DOSE: 975.00 mGy.cm FINDINGS: Lung bases are clear. There is probable fatty infiltration of the liver. There may be small gallstones within the gallbladder without evidence of acute cholecystitis by CT. The spleen, adrenal glands, kidneys and pancreas are unremarkable. There is no biliary or pancreatic ductal dilatation. There is no hydronephrosis. The nephrograms are symmetric. No enlarged abdominal or pelvic lymph nodes are present. There is no pneumatosis or portal venous gas. There are postoperative findings consistent with a sigmoid resection. An adjacent posterior pelvic rim enhancing fluid collection which extends superiorly into the mesentery is noted. There has been interval placement of a percutaneous drain through a left transgluteal approach. Drain appears appropriately positioned. Multiloculated pelvic abscess is noted. The inferior component measures 9.2 x 5.4 cm. This communicates with a more superior component that measures 10.3 x 8.5 cm. The superior component contains mostly gas. There is gas and fluid within the inferior component. There is moderate adjacent infiltration. A smaller suspected right lower quadrant abscess measures 2.8 cm. Sclerotic lesions within the left femoral neck and right inferior sacrum remain unchanged. A suspected mild superior endplate T12 compression fracture is new. IMPRESSION: 1. Interval placement of a percutaneous pelvic abscess pigtail catheter through a left transgluteal approach for a suspected anastomotic leak from sigmoid resection. Drain appears appropriately positioned within a large multiloculated abscess. The findings suggest a partially drained abscess which is more well-defined than on exam of January 26, 2017. Drain located within inferior component of collection. A few smaller adjacent abscesses with moderate adjacent infiltration. 2. No bowel obstruction. 3. Suspected mild superior endplate T12 compression fracture which is likely acute. Electronically signed by: Gabe Ramirez M.D. 02/11/2017 3:02 PM Dictated Date/Time: 02/11/2017 2:39 PM CHEST ONE VIEW PORTABLE CLINICAL HISTORY: Atypical chest pain COMPARISON STUDY: July 08, 2016 FINDINGS: The heart is at the upper limits of normal in size.. There is no evidence of focal pulmonary consolidation. There is no evidence of failure. No pleural effusions are visualized.[ Surgical clips are visualized in the left axillary region IMPRESSION: No active disease in the chest. Electronically signed by: Kirill Mujica M.D. 02/10/2017 10:08 PM Dictated Date/Time: 02/10/2017 10:07 PM Last Resulted CBC 02/11/17 06:16 Last Resulted BMP 02/12/17 09:24 Medication Reconciliation New Medications: Docusate Sodium (Colace) 100 Mg Cap 1 CAP PO BID PRN for Constipation for 15 Days, #30 CAP Ondansetron Hcl (Zofran) 4 Mg Tab 4-8 MG PO PRN, #20 TAB Oxycodone HCl (Oxycodone HCl) 5 Mg Tab 5-10 MG PEG Q6, #40 DOSE Continued Medications: Acetaminophen (Tylenol) 500 Mg Tab 1000 MG PO Q6 PRN for Pain, TAB Anastrozole (Arimidex) 1 Mg Tab 1 TAB PO DAILY@1800, TAB Clonazepam (Klonopin) 0.5 Mg Tab 1 TAB PO HS take 1 tablet by mouth at bedtime if needed take 1/2 tablet EARLY EVENING Metformin Hcl (Glucophage Ext Rel) 1,000 Mg Tab 500 MG PO QAM, TAB Multivitamin (Multivitamin) Tab 1 TAB PO QAM, TAB Paroxetine HCl (Paroxetine) 30 Mg Tab 30 MG PO QAM Prednisone (Prednisone) 5 Mg Tab 5 MG PO QAM, TAB Discontinued Medications: Carvedilol (Coreg) 25 Mg Tab 1 TAB PO BID, TAB Furosemide (Lasix) 40 Mg Tab 40 MG PO QAM, TAB Losartan Potassium (Cozaar) 25 Mg Tab 25 MG PO BID, TAB Potassium Chloride (Potassium Chloride ER) 20 Meq Tab 20 MEQ PO QAM Hospital Course 61 y/o F with recent IR placement of drain of para anastomotic colic abscess that occurred after bowel resection for recurrent diverticulitis. Hx breast CA , systolic CHF, DM II. Originally had surgery for sigmoid diverticulitis in [place] Jan 02. 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 Additionally, she developed a gluteal abscess as a complication and currently has a drain in place. She was treated with Zosyn and Vancomycin perioperatively. 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 Diarrhea and abdominal pain - initial concern for Cdiff, but diarrhea self resolved. 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 suspect viral GE superimposed on currently quite complicated GI history making risk concerns high. CT abdomen shows good drain placement but persistent phlegmon. outpt surgery f/u already scheduled, pt comfortable to go home chronic systolic CHF - stable, home on home meds DM II - home on home meds Gluteal abscess - a drain remains in place -she continues to drain and needs irrigated, wound care will be involved in dressing changes she will discontinue this when output is below 10cc daily. outpt surgery f/u Breast CA - cont Anastrazole Full code - Heparin SQ for DVT prophylaxis Total Time Spent: Greater than 30 minutes This includes examination of the patient, discharge planning, medication reconciliation, and communication with other providers. Discharge Instructions Please refer to the electronic Patient Visit Report (Discharge Instructions) for additional information.
== END 2017-02-13 10:56 | disposition home health service (06) | DRG 392 ==
LOC: C.EDB 21:06 → UNDOADMOB 22:54 → C.4E 22:54 → ENRESERV 23:11 → OBSVTOIN 02-12 09:17
PROVIDERS: ADMIT Internal Medicine; ATTEND Family Medicine
DX: A08.4 Viral intestinal infection, unspecified (principal); K63.0 Abscess of intestine; L02.31 Cutaneous abscess of buttock; I50.22 Chronic systolic (congestive) heart failure; T45.1X5S Adverse effect of antineoplastic and immunosuppressive drugs, sequela; C50.919 Malignant neoplasm of unspecified site of unspecified female breast; E86.0 Dehydration; K59.00 Constipation, unspecified; L50.8 Other urticaria; E11.9 Type 2 diabetes mellitus without complications; E66.9 Obesity, unspecified; Z68.34 Body mass index [BMI] 34.0-34.9, adult; Z90.49 Acquired absence of other specified parts of digestive tract; Z98.890 Other specified postprocedural states; Z87.891 Personal history of nicotine dependence; Z87.19 Personal history of other diseases of the digestive system; Z79.52 Long term (current) use of systemic steroids; Z79.84 Long term (current) use of oral hypoglycemic drugs; Z79.811 Long term (current) use of aromatase inhibitors; Z79.899 Other long term (current) drug therapy

== ENCOUNTER 2017-02-17 08:55 | Emergency (ER) | payer OTHER ==
[~2017-02-17] VITALS: Ht 165.1 cm; Wt 104.1 kg
[~2017-02-17 08:55] MED LIST changes: -CARV25TA PO; +DOCU-94 PO; -FRS/40 PO; -LOSA1TAB PO; +ONDA4TAB65 PO; -POTA-65 PO; +RXC5 PEG
[2017-02-17 09:00] VITALS: TEMP 36.6
[2017-02-17] MEDS ORDERED: ONDANSETRON INJ 2 MG/ML 2 ML VIAL IV STA (09:29)
[2017-02-17] MEDS ORDERED: SODIUM CHLORIDE 0.9% 1000ML 1,000 ML IV STA (09:29)
[2017-02-17] MEDS ORDERED: SODIUM CHLORIDE 0.9% 500ML 500 ML IV STA ×3 (09:29→15:58)
[2017-02-17 09:33] VITALS: O2SAT 98; Ht 165.1 cm; Wt 104.1 kg
[2017-02-17] MEDS: HYDROmorphone INJ 0.5 MG/0.5 ML SYR IV PRN ×7 (09:51→16:16)
[2017-02-17 10:18] LABS: BASO % 0.3 %; BASO ABS # 0.04 K/uL (0-0.2); EOS % 0.4 %; EOS ABS # 0.06 K/uL (0-0.5); HEMATOCRIT 36.2 % (37-47); HEMOGLOBIN 11.3 g/dL (12.0-16.0); IG# 0.32 K/uL (0.00-0.02); LYMPH % 6.4 %; LYMPH ABS # 0.95 K/uL (1.2-3.4); MEAN CELL VOLUME 93.1 fL (80-100); MEAN CORPUSCULAR HGB CONC 31.2 g/dl (32-36); MEAN PLATELET VOLUME 10.5 fL (7.4-10.4); MONO % 10.6 %; MONO ABS # 1.58 K/uL (0.11-0.59); NEUT % 80.1 %; NEUT ABS # 11.92 K/uL (1.4-6.5); PLATELET COUNT 381 K/uL (130-400); RED CELL DISTRIBUTION WIDTH CV 15.3 % (11.5-14.5); RED CELL DISTRIBUTION WIDTH SD 51.3 fL (36.4-46.3); WHITE BLOOD COUNT 14.87 K/uL (4.8-10.8)
[2017-02-17 10:26] LABS: INR 1.4 (0.9-1.1); PTT PATIENT 33.6 SECONDS (21.0-31.0)
[2017-02-17] MEDS ORDERED: DAPTOmycin IV 500 MG in SODIUM CHLORIDE 0.9% 50ML 50 ML IV STA (10:47)
[2017-02-17] MEDS ORDERED: PIPERACILLIN/TAZOBACTAM 4.5 GM/100ML D5W IV STA (10:47)
[2017-02-17 10:55] LABS: ALBUMIN 1.8 gm/dl (3.4-5.0); ALKALINE PHOSPHATASE 126 U/L (45-117); ALT/SGPT 12 U/L (12-78); AST/SGOT 19 U/L (15-37); BLOOD UREA NITROGEN 14 mg/dl (7-18); CALCIUM 8.2 mg/dl (8.5-10.1); CARBON DIOXIDE 27 mmol/L (21-32); CREATININE 1.08 mg/dl (0.60-1.20); GLUCOSE 152 mg/dl (70-99); LIPASE 113 U/L (73-393); TOTAL PROTEIN 6.4 gm/dl (6.4-8.2)
[2017-02-17 10:57] LABS: SODIUM 133 mmol/L (136-145)
[2017-02-17] MEDS ORDERED: CARV25TA2 PO (11:01)
[2017-02-17] MEDS ORDERED: FRS/40 PO (11:01)
[2017-02-17] MEDS ORDERED: LOSA1TAB PO (11:01)
[2017-02-17] MEDS ORDERED: POTA20TA16 PO (11:01)
[2017-02-17] MEDS ORDERED: OPTIRAY 320 IV PRN (12:45)
--- NOTE | 2017-02-17 13:08 | DIAGNOSTIC IMAGING REPORT ---
ABD/PELVIS IV AND ORAL CONT CT DOSE: 1415.75 mGy.cm HISTORY: Flank pain Inc. RLQ pain, prior abscess, IR drain change yesterday TECHNIQUE: Multiaxial CT images of the abdomen and pelvis were performed following the use of intravenous and oral contrast. A dose lowering technique was utilized adhering to the principles of ALARA. COMPARISON STUDY: None. FINDINGS: Lung bases are clear. Liver spleen and pancreas appear uniform. Mild gallbladder distention. Kidneys enhance uniformly. No evidence for hydronephrosis. Mild nonobstructive small bowel ileus. There is increasing volume of what appears to be a distended fluid pocket containing oral contrast in the right lower quadrant. There is potentially a small fistulous tract at its lateral aspect best seen image 59 which potentially extends to a additional loop of bowel deep to the prior incision site. Components of this potentially are related to a mildly distended abscess compared to the prior study. There is suggestion that this has a potential direct connection to the previously described abscess in the presacral region. The pelvic abscess appeared decompressed after apparent revision and replacement of the patient's drainage catheter. All region is now shows at least partial postcontrast enhancement raising the possibility of this simply represents a distended bowel versus an abscess potentially connected to bowel be a fistulous tract formations. IMPRESSION: 1. Mixed findings as compared to the prior study. 2. Revision of the patient's drainage catheter has decompressed the presacral collection with no significant residual as compared to the prior study. 3. Prior partial sigmoid resection changes which are unaltered. 4. The catheter appears to be located within a presacral region which now appears to communicate with bowel as oral contrast is present within the cavity. 5. Interval increase in distention of what what is potentially a secondary abscess in the right lower quadrant also containing oral contrast. 6. This raises the possibility of distention of a pre-existing abscess cavity, which now has 1 and possibly 2 fistulous tracts extending to bowel. 7. Given the complexity of findings, it is felt that referral of this patient to the facility where the interventional procedures have been performed previously noted be appropriate. The above report was generated using voice recognition software. It may contain grammatical, syntax or spelling errors. Electronically signed by: Aguila Estrada M.D. 02/17/2017 1:06 PM Dictated Date/Time: 02/17/2017 12:59 PM
[2017-02-17 16:15] VITALS: BP 95/48; PULSE 71; O2SAT 98
[2017-02-17] MEDS ORDERED: PIPERACILLIN/TAZOBACTAM 4.5 GM/100ML D5W IV ONE (16:47)
--- NOTE | 2017-02-17 16:47 | EMERGENCY ROOM VISIT NOTE ---
History Report prepared by Rupali: Marizol Ritter Under the Supervision of: Dr. Sky Benz M.D. First contact with patient: 09:00 Chief Complaint: ABDOMINAL PAIN Stated Complaint: Abdominal Pain History of Present Illness The patient is a 61 year old female who presents to the Emergency Room with complaints of right lower quadrant abdominal pain beginning today. The patient also reports having diarrhea and nausea. She rates her pain at a 9/10. The patient has a history of diverticulitis. The patient was discharged 4 days ago for abdominal pain and diarrhea. She had a recent bowel abscess with an IR drain. The patient had an IR repositioning done in [place]. Pt denies LOC, headache, fevers, chills, diaphoresis, visual changes, neck pain, chest pain, breathing difficulties, vomiting, back pain, melena, hematochezia, numbness, weakness, urinary symptoms, lymphadenopathy, rash, or other complaints. Source of History: patient Onset: today Position: abdomen (RLQ) Symptom Intensity: rated at a 9/10 Associated Symptoms: + nausea, + diarrhea, No vomiting Review of Systems See HPI for pertinent positives and negatives. A total of ten systems were reviewed and were otherwise negative. Past Medical & Surgical Medical Problems: (1) Abdominal pain (2) Acute diverticulitis (3) Acute hypoxemic respiratory failure (4) Acute respiratory failure with hypoxia (5) Colonic diverticular abscess (6) Diabetes (7) Diarrhea (8) Lumbar disc herniation with radiculopathy (9) Pneumonia (10) Shortness of breath (11) SOB (shortness of breath) Surgical Problems: (1) H/O bilateral mastectomy Family History Cancer Heart disease Hypertension Social History Smoking Status: Former Smoker Drug Use: none Marital Status: single Housing Status: lives alone Occupation Status: employed Current/Historical Medications Scheduled Anastrozole (Arimidex), 1 TAB PO DAILY@1800 Carvedilol (Coreg), 1 TAB PO BID Clonazepam (Klonopin), 1 TAB PO HS Furosemide (Lasix), 40 MG PO QAM Losartan Potassium (Cozaar), 25 MG PO BID Metformin Hcl (Glucophage Ext Rel), 500 MG PO QAM Multivitamin (Multivitamin), 1 TAB PO QAM Ondansetron Hcl (Zofran), 4-8 MG PO PRN Oxycodone HCl (Oxycodone HCl), 5-10 MG PEG Q6 Paroxetine HCl (Paroxetine), 30 MG PO QAM Potassium Ext Rel (Klor-Con), 20 MEQ PO DAILY Prednisone (Prednisone), 5 MG PO QAM Scheduled PRN Acetaminophen (Tylenol), 1,000 MG PO Q6 PRN for Pain Docusate Sodium (Colace), 1 CAP PO BID PRN for Constipation Allergies Coded Allergies: Aspirin (Verified Allergy, Mild, HIVES, 02/17/17) Ibuprofen (Verified Allergy, Mild, HIVES, 02/17/17) Tamoxifen (Verified Allergy, Unknown, TEMP LOSS OF VISION IN LEFT EYE, ) Physical Exam Vital Signs Date Time Temp Pulse Resp B/P (MAP) Pulse Ox O2 Delivery O2 Flow Rate FiO2 02/17/17 16:15 71 20 95/48 98 Room Air 02/17/17 14:25 85 17 85/45 98 Nasal Cannula 2.0 02/17/17 14:15 84 Room Air 02/17/17 13:23 64 02/17/17 12:52 64 14 101/45 99 Room Air 02/17/17 11:40 65 14 99 Room Air 2.0 02/17/17 11:35 69 87 Room Air 02/17/17 11:30 59 18 93/43 93 Room Air 02/17/17 10:17 66 14 90/43 97 Room Air 02/17/17 09:33 98 Room Air 02/17/17 09:09 76 02/17/17 09:00 36.6 74 17 107/71 98 Room Air Physical Exam GENERAL: Awake, alert, uncomfortable-appearing, in no distress HENT: Normocephalic, atraumatic. Oropharynx unremarkable. EYES: Normal conjunctiva. Sclera non-icteric. NECK: Supple. No nuchal rigidity. FROM. No JVD. RESPIRATORY: Clear to auscultation. CARDIAC: Regular rate, normal rhythm. Extremities warm and well perfused. Pulses equal. ABDOMEN: Firm right lower quadrant tenderness. Mild guarding. No masses. RECTAL: Deferred. BACK: Drain in place in superior left gluteal region. Mild purulent drainage from around the tube. MUSCULOSKELETAL: Chest examination reveals no tenderness. There is no CVA tenderness to palpation. No joint edema. LOWER EXTREMITIES: Calves are equal size bilaterally and non-tender. No edema. No discoloration. NEURO: Normal sensorium. No sensory or motor deficits noted. SKIN: No rash or jaundice noted. Medical Decision & Procedures ER Provider Diagnostic Interpretation: Radiology results as stated below per my review and radiologist interpretation: ABD/PELVIS IV AND ORAL CONT CT DOSE: 1415.75 mGy.cm HISTORY: Flank pain Inc. RLQ pain, prior abscess, IR drain change yesterday TECHNIQUE: Multiaxial CT images of the abdomen and pelvis were performed following the use of intravenous and oral contrast. A dose lowering technique was utilized adhering to the principles of ALARA. COMPARISON STUDY: None. FINDINGS: Lung bases are clear. Liver spleen and pancreas appear uniform. Mild gallbladder distention. Kidneys enhance uniformly. No evidence for hydronephrosis. Mild nonobstructive small bowel ileus. There is increasing volume of what appears to be a distended fluid pocket containing oral contrast in the right lower quadrant. There is potentially a small fistulous tract at its lateral aspect best seen image 59 which potentially extends to a additional loop of bowel deep to the prior incision site. Components of this potentially are related to a mildly distended abscess compared to the prior study. There is suggestion that this has a potential direct connection to the previously described abscess in the presacral region. The pelvic abscess appeared decompressed after apparent revision and replacement of the patient's drainage catheter. All region is now shows at least partial postcontrast enhancement raising the possibility of this simply represents a distended bowel versus an abscess potentially connected to bowel be a fistulous tract formations. IMPRESSION: 1. Mixed findings as compared to the prior study. 2. Revision of the patient's drainage catheter has decompressed the presacral collection with no significant residual as compared to the prior study. 3. Prior partial sigmoid resection changes which are unaltered. 4. The catheter appears to be located within a presacral region which now appears to communicate with bowel as oral contrast is present within the cavity. 5. Interval increase in distention of what what is potentially a secondary abscess in the right lower quadrant also containing oral contrast. 6. This raises the possibility of distention of a pre-existing abscess cavity, which now has 1 and possibly 2 fistulous tracts extending to bowel. 7. Given the complexity of findings, it is felt that referral of this patient to the facility where the interventional procedures have been performed previously noted be appropriate. The above report was generated using voice recognition software. It may contain grammatical, syntax or spelling errors. Electronically signed by: Aguila Estrada M.D. 02/17/2017 1:06 PM Dictated Date/Time: 02/17/2017 12:59 PM Laboratory Results 02/17/17 09:38 Red Blood Count 3.89, Mean Corpuscular Volume 93.1, Mean Corpuscular Hemoglobin 29.0, Mean Corpuscular Hemoglobin Concent 31.2, Mean Platelet Volume 10.5, Neutrophils (%) (Auto) 80.1, Lymphocytes (%) (Auto) 6.4, Monocytes (%) (Auto) 10.6, Eosinophils (%) (Auto) 0.4, Basophils (%) (Auto) 0.3, Neutrophils # (Auto ) 11.92, Lymphocytes # (Auto) 0.95, Monocytes # (Auto) 1.58, Eosinophils # (Auto ) 0.06, Basophils # (Auto) 0.04 02/17/17 09:38 Test 02/17/17 09:38 02/17/17 09:50 White Blood Count 14.87 K/uL (4.8-10.8) Red Blood Count 3.89 M/uL (4.2-5.4) Hemoglobin 11.3 g/dL (12.0-16.0) Hematocrit 36.2 % (37-47) Mean Corpuscular Volume 93.1 fL (80-100) Mean Corpuscular Hemoglobin 29.0 pg (25-34) Mean Corpuscular Hemoglobin Concent 31.2 g/dl (32-36) Platelet Count 381 K/uL (130-400) Mean Platelet Volume 10.5 fL (7.4-10.4) Neutrophils (%) (Auto) 80.1 % Lymphocytes (%) (Auto) 6.4 % Monocytes (%) (Auto) 10.6 % Eosinophils (%) (Auto) 0.4 % Basophils (%) (Auto) 0.3 % Neutrophils # (Auto) 11.92 K/uL (1.4-6.5) Lymphocytes # (Auto) 0.95 K/uL (1.2-3.4) Monocytes # (Auto) 1.58 K/uL (0.11-0.59) Eosinophils # (Auto) 0.06 K/uL (0-0.5) Basophils # (Auto) 0.04 K/uL (0-0.2) RDW Standard Deviation 51.3 fL (36.4-46.3) RDW Coefficient of Variation 15.3 % (11.5-14.5) Immature Granulocyte % (Auto) 2.2 % Immature Granulocyte # (Auto) 0.32 K/uL (0.00-0.02) Prothrombin Time 14.1 SECONDS (9.0-12.0) Prothromb Time International Ratio 1.4 (0.9-1.1) Activated Partial Thromboplast Time 33.6 SECONDS (21.0-31.0) Partial Thromboplastin Ratio 1.3 Anion Gap 9.0 mmol/L (3-11) Est Creatinine Clear Calc Drug Dose 64.7 ml/min Estimated GFR () 63.7 Estimated GFR (Non- 55.0 BUN/Creatinine Ratio 12.7 (10-20) Calcium Level 8.2 mg/dl (8.5-10.1) Magnesium Level 1.7 mg/dl (1.8-2.4) Total Bilirubin 0.4 mg/dl (0.2-1) Direct Bilirubin 0.2 mg/dl (0-0.2) Aspartate Amino Transf (AST/SGOT) 19 U/L (15-37) Alanine Aminotransferase (ALT/SGPT) 12 U/L (12-78) Alkaline Phosphatase 126 U/L (45-117) Troponin I < 0.015 ng/ml (0-0.045) Total Protein 6.4 gm/dl (6.4-8.2) Albumin 1.8 gm/dl (3.4-5.0) Lipase 113 U/L (73-393) Thyroid Stimulating Hormone (TSH) 1.900 uIu/ml (0.300-4.500) Bedside Lactic Acid Venous 3.75 mmol/L (0.90-1.70) Laboratory results reviewed by me Medications Administered Medications (Trade) Dose Ordered Sig/Omkar Route Start Time Stop Time Status Last Admin Dose Admin Sodium Chloride 1,000 ml @ 125 mls/hr Q8H STAT IV 02/17/17 09:29 02/17/17 17:28 02/17/17 11:00 125 MLS/HR Sodium Chloride 500 ml @ 999 mls/hr Q31M STAT IV 02/17/17 09:29 02/17/17 09:59 DC 02/17/17 09:51 999 MLS/HR Ondansetron HCl (Zofran Inj) 4 mg NOW STAT IV 02/17/17 09:29 02/17/17 09:32 DC 02/17/17 09:51 4 MG Hydromorphone HCl (Dilaudid Inj) 0.5 mg Q15M PRN IV 02/17/17 09:30 03/03/17 09:29 02/17/17 16:16 0.5 MG Piperacillin Sod/ Tazobactam Sod (Zosyn Iv) 4.5 gm NOW STAT IV 02/17/17 10:47 02/17/17 10:48 DC 02/17/17 10:55 4.5 GM Daptomycin 500 mg/ Sodium Chloride 60 ml @ 100 mls/hr NOW STAT IV 02/17/17 10:47 02/17/17 11:22 DC 02/17/17 11:24 100 MLS/HR Sodium Chloride 500 ml @ 999 mls/hr Q31M STAT IV 02/17/17 10:47 02/17/17 11:17 DC 02/17/17 10:55 999 MLS/HR Piperacillin Sod/ Tazobactam Sod (Zosyn Iv) 4.5 gm NOW ONCE IV 02/17/17 16:47 02/17/17 16:48 02/17/17 16:17 4.5 GM Sodium Chloride 500 ml @ 999 mls/hr Q31M STAT IV 02/17/17 15:58 02/17/17 16:28 DC 02/17/17 16:20 999 MLS/HR ECG Indication: abdominal pain Rate (beats per minute): 67 Rhythm: sinus rhythm Findings: nonspecific-ST abn, PAC, no acute ischemic change ED Course 0908: The patient was evaluated in room B5. A complete history and physical exam was performed. 0929: Ordered Zofran Inj 4 mg IV, Sodium Chloride 500 ml @ 999 mls/hr IV, Sodium Chloride 1,000 ml @ 125 mls/hr IV. 0930: Ordered Dilaudid Inj 0.5 mg IV. 1047: Ordered Sodium Chloride 500 ml @ 999 mls/hr IV, Daptomycin 500 mg/Sodium Chloride 60 ml @ 100 mls/hr IV, Zosyn Iv 4.5 gm IV. 1118: I checked on the patient and she is stable. After fluids, the patient's blood pressure improved. 1328: I updated the patient on her results. 1351: Discussed the patient's case with Dr. Lakhwinder Dozier. The patient will be transferred to [place]. Medical Decision Triage Nursing notes reviewed. The patient's presentation and history were concerning for abdominal pain and recent treatment for abdominal abscess. Etiologies such as worsening abscess, complication of IR catheter procedure, appendicitis, diverticulitis, obstruction, inflammatory bowel disease, renal colic, PUD, biliary pathology, pancreatitis, mesenteric ischemia, aortic pathology, infections, genitourinary, UTI, perforated viscus, as well as others were entertained. The patient was evaluated. Noted developing worsening symptoms in the right lower quadrant since her catheter procedure yesterday. She was given IV Dilaudid and Zofran. She was given fluid boluses of normal saline. A normal blood pressure between 90 and 100 systolic. She was doing better after those medications and fluids. She was given a full prep for CT imaging. Her blood work revealed a significant leukocytosis as well as elevated lactate. She was given Zosyn and daptomycin for broad-spectrum sepsis coverage from an intra- abdominal source. The patient was reassessed multiple times. I did consult with [facility] colorectal surgery, Dr. Dozier after her CT imaging was very abnormal as noted above. The patient was accepted in transfer. The patient was observed while a bed was pared at [place]. Interfacility medical command was done by me. The patient was reassessed and was doing well prior to transfer. A second dose of IV Zosyn was initiated just prior to transfer as it was 6 hours from the first. Medication Reconcilliation Current Medication List: was personally reviewed by me Blood Pressure Screening Patient's blood pressure: Low blood pressure Blood pressure disposition: Referred to PCP Consults Time Called: 1330 Consulting Physician: Dr. Lakhwinder Dozier-Colorectal Surgeon [place] Returned Call: [phone] Discussed the patient's case. The patient will be evaluated for further treatment and disposition. Impression Primary Impression: Intra-abdominal abscess Critical Care I have personally spent greater than 30 minutes of critical care time in the direct management of this patient. This includes bedside care, interpretation of diagnostic studies, and testing, discussion with consultants, patient, and family members, and other required patient management activities. This 30 minutes is in excess of all separately billable procedures. Scribe Attestation The scribe's documentation has been prepared under my direction and personally reviewed by me in its entirety. I confirm that the note above accurately reflects all work, treatment, procedures, and medical decision making performed by me. Departure Information Dispostion Transfer Acute Care Facility Referrals Colleen Dumont M.D. (PCP) Patient Instructions My [facility]
[2017-02-17] MEDS ORDERED: HYDROmorphone INJ 2 MG/ML SYR/VIAL ONE (20:09)
== END 2017-02-17 16:36 | disposition short-term general hospital (02) ==
LOC: EDBD 08:55 → EEVIPCON 09:02 → C.EDB 09:02
DX: T81.4XXA Infection following a procedure, initial encounter (principal); Y83.9 Surgical procedure, unspecified as the cause of abnormal reaction of the patient, or of later complication, without mention of misadventure at the time of the procedure; K57.92 Diverticulitis of intestine, part unspecified, without perforation or abscess without bleeding; E11.9 Type 2 diabetes mellitus without complications; Z87.01 Personal history of pneumonia (recurrent); M51.16 Intervertebral disc disorders with radiculopathy, lumbar region; Z80.9 Family history of malignant neoplasm, unspecified; Z82.49 Family history of ischemic heart disease and other diseases of the circulatory system; Z87.891 Personal history of nicotine dependence; Z79.52 Long term (current) use of systemic steroids; Z79.899 Other long term (current) drug therapy

== ENCOUNTER → 2017-05-01 | Outpatient (CLI) | payer OTHER ==
[~2017-05-01] MED LIST changes: +CARV25TA2 PO; +FRS/40 PO; +LOSA1TAB PO; -ONDA4TAB65 PO; +POTA20TA16 PO
[2017-05-01 13:36] VITALS: BP 90/62; PULSE 100; TEMP 36.6; O2SAT 97
--- NOTE | 2017-05-01 16:24 | Radiation Oncology Follow-Up ---
Radiation Oncology Follow-Up Date of Visit May 01, 2017. 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 Ojeda was found to have a left breast carcinoma and underwent a left breast mastectomy and axillary dissection in 1994. The records from this procedure including the pathology report have been sent for an will be evaluated when available. The patient tolerated the procedure well. She was seen by Dr. Murry for discussion of adjuvant therapy. The lesion was ER and AK positive and all axillary nodes were negative. The patient went on to receive high-dose Adriamycin and cyclophosphamide for 4 cycles. She was subsequently placed on tamoxifen. 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 She had no evidence of lymphedema in the left arm and no sequela I from the surgery. The patient has a very strong family history with both a mother and sister diagnosed with breast cancer. She was therefore seen by Dr. Devante Hopkins in September 2004 to discuss the possibility of a right prophylactic total mastectomy. This was ultimately agreed upon and on 09/14/2004 the patient underwent a right total mastectomy. The tissue was negative for in situ and invasive carcinoma. Specimen #[id number]. The patient had noted a nodule on her left chest wall which had been present for many years and was unchanged. She indicated that it occasionally is itchy but otherwise was asymptomatic. The patient has noted more recently increasing cardiac issues with PVCs and shortness of breath and ultimately dyspnea. On patient underwent a CT angiography of the chest with a pulmonary embolus protocol due to increasing shortness of breath. This revealed multiple mildly enlarged thoracic lymph nodes. An index right paratracheal lymph node measured 1.4 cm and an index right hilar lymph node measured 1.3 cm. An index left infrahilar node measured 1.4 cm. There was an 8 mm lingular nodule. A sclerotic lesion was noted within the left scapular spine likely reflecting a bone island. There was an old right rib fracture appreciated. Also noted was a 4.0 x 2.1 I 1.9 cm subcutaneous mass in the left anterior chest wall which overlies the medial aspect of the left pectoralis muscle. There were left axillary surgical clips from her prior mastectomy and axillary dissection. Patient underwent a repeat CT angiogram of the chest on 02/04/2016. This again noted the pathologically enlarged mediastinal and hilar lymph nodes. A 2 cm right paratracheal lymph node was appreciated and a 1.7 cm subcarinal lymph node. A 1.5 cm right hilar and left hilar nodes were noted. There were no pathologic axillary adenopathy appreciated. Again noted was a stable 3.8 x 2.3 x 2.0 cm left anterior chest wall nodule. The patient was seen by Dr. Philip Martinez for evaluation of the pulmonary nodules. A repeat CT scan of the chest with IV contrast was performed on 05/01/2016. Again noted were persistent enlarged mediastinal lymph nodes. A 7 mm pleural-based lingular pulmonary nodule was noted and smaller on up prior study. There were surgical clips in the left axilla but no pathologically enlarged axillary lymphadenopathy. The left anterior chest wall mass was again noted. He ordered a PET CT scan which was performed on 05/17/2016. This showed a 2.9 x 2.1 cm FDG avid mass within the left upper presternal soft tissue. This mass abuts the skin surface and invades into the medial aspect of the left pectoralis major muscle. This mass demonstrated an SUV max of 6. Mediastinal and bilateral hilar lymphadenopathy was again noted demonstrating mild FDG uptake with an SUV max of 2.5. These lymph nodes had increased slightly in size from the study of April 2016 but have slightly decreased in size compared to the study in 02/04/2016. The dominant right paratracheal lymph node measured 1.4 cm. A stable 7 mm lingular nodule was noted. There was evidence of an acute sigmoid diverticulitis with a small focus of microperforation but no abscess. There was no fistula identified with recommended close follow-up. On 06/16/[address] scan of the abdomen and pelvis with IV contrast. This showed thickening in pericolic fat with within the proximal sigmoid colon consistent with acute diverticulitis that was not present on the prior study. There was also a 3.1 x 1.2 cm pericolic abscess at this location. There was stable to slightly improvement in the mid sigmoid: Diverticulitis compared to the prior study. There was a stable 1.3 cm sclerotic focus side within the left femoral head and right sacrum. These were nonspecific but did not show abnormal FDG uptake on the recent PET/CT scan. This study was repeated with IV and oral contrast on 06/19/2016. This showed slight improvement in the inflammatory change involving the proximal and mid sigmoid: Diverticulitis. There was slight improvement in the pulmonary edema however this small bilateral pleural effusions have increased slightly. Dr. martinez was concerned about the chest wall mass despite the fact it appeared to have been there for many years and unchanged.. The patient was again seen by Dr. Devante Hopkins. His examination revealed a superior medial quadrant mass palpated at the 11 o'clock position with a visible skin nodule measuring about 2 cm. The skin superior to this lesion was adherent. Deep to the skin was a palpable firm immobile mass measuring approximate 6 cm in the left chest wall. The patient was therefore scheduled for excision of this mass. She was also seen by Dr. Alice Levine for consideration of a flap to ensure clear margins. Therefore on 06/12/2016 the patient underwent an excision of the left chest wall soft tissue mass followed by a skin and soft tissue rotational flap to close the defect of the left chest wall. A local excision of the lesion was performed. This confirmed unfortunately an adenocarcinoma consistent with a recurrent ductal carcinoma of breast origin. The lesion measured 4.0 x 2.5 x 2.5 cm. Estrogen receptors were positive (100%, strong to intermediate intensity, H score 250). Progesterone receptors are positive (30%, intermediate intensity, H score 60). HER-2/eddie overexpression was equivocal (score 2+, weak staining in 10%). The tumor cells however were negative by HER-2/eddie amplification by FISH. The margin on this tissue was negative however extremely close at less than 0.1 mm. Additional left chest wall superior margin and medial deep tissue was excised. The carcinoma extended to several inked and cauterized margins. This showed approximately 50% involvement by carcinoma. There was no involvement of the overlying skin noted. An additional left lateral tissue was excised and was negative for carcinoma. In discussion with pathology and their discussion with the surgeon is felt that the margins were ultimately positive. Case: [id number]. Patient underwent a repeat CT scan of the abdomen and pelvis on 06/30/2016. This showed overall improvement compared to the study of 06/19/2016 with near complete resolution of the pericolonic abscess along the proximal sigmoid colon. There was however persistent small pericolonic abscess adjacent to the mid sigmoid colon with possible associated fistula the small bowel and potentially the right aspect of the bladder dome. The patient was subsequently seen by Dr. Fercho Holland for discussion of the role of adjuvant systemic therapy. There was a question at that time whether the patient would require abdominal surgery. He therefore decided against cytotoxic chemotherapy at that time. He recommended aromatase inhibition and has started the patient on anastrozole 1 mg by mouth daily. We were asked to see the patient for evaluation of the role of adjuvant radiation. His for this reason the patient is being seen in referral. She underwent conventional radiation therapy to the chest wall. This was completed 09/21/2016. She received 6120 cGy. Interim History She has been doing well over the past 6 months in regards to her radiation therapy to the left chest wall. She has noted no masses or tenderness and no change of the axilla. She has had no swelling of her arm. She is on Arimidex. Since her last visit she underwent surgery for an diverticular abscess. She steadily recovered from the surgery. She was in the hospital in [facility] in December and in February. Following the surgery she did have issues with an area of drainage. 1 area continues to have a small open area. She was in the rehab hospital for 3 weeks. She is now back home. Allergies Coded Allergies: Aspirin (Verified Allergy, Mild, HIVES, 02/17/17) Ibuprofen (Verified Allergy, Mild, HIVES, 02/17/17) Tamoxifen (Verified Allergy, Unknown, TEMP LOSS OF VISION IN LEFT EYE, ) Home Medications Scheduled Anastrozole (Arimidex), 1 TAB PO DAILY@1800 Carvedilol (Coreg), 1 TAB PO BID Clonazepam (Klonopin), 1 TAB PO HS Docusate Sodium (Colace), 1 CAP PO Q2D Furosemide (Lasix), 40 MG PO QAM Losartan Potassium (Cozaar), 25 MG PO BID Multivitamin (Multivitamin), 1 TAB PO QAM Paroxetine HCl (Paroxetine), 30 MG PO QAM Potassium Ext Rel (Klor-Con), 20 MEQ PO DAILY Scheduled PRN Acetaminophen (Tylenol), 1,000 MG PO Q6 PRN for Pain Review of Systems Gastrointestinal: Symptoms: Ostomy GI Comments: has a colostomy Oral: Symptoms: No Problems Respiratory: Symptoms: WNL Urinary: Symptoms: Nocturia Comments: nocturia times 1 Skin: Other Skin Symptoms: "has a draining area on her surgical incision " Physical Exam Vital Signs Date Time Temp Pulse Resp B/P (MAP) Pulse Ox O2 Delivery O2 Flow Rate FiO2 05/01/17 13:36 36.6 100 20 90/62 97 Fatigue: None General Appearance: no apparent distress Eyes: normal inspection, EOMI ENT: normal ENT inspection, hearing grossly normal Neck: no adenopathy, thyroid normal Respiratory/Chest: lungs clear, no respiratory distress, no accessory muscle use Breast: Status post bilateral mastectomies. She has well-healed incisions. There are no masses or tenderness and no axillary adenopathy. There are no visible or palpable lesions. Cardiovascular: regular rate, rhythm, no gallop, no murmur Neurologic/Psychiatric: no motor/sensory deficits, alert, normal mood/affect Skin: warm/dry Pain Management Patient Reports Pain: No Side: Bilateral Patient Preferred Pain Scale: 0 - 10 Initial Pain Intensity: 0.0 Pain Management Plan She denies pain therefore requires no pain management. Laboratory Laboratory Results: not applicable Pathology Pathology Results: not applicable Imaging Imaging Studies: not applicable Assessment & Plan Plan: She was seen and examined by Dr. Dumont. Continue regular follow-up with medical oncology and her primary care physician. She continues follow-up with her surgeon in [place] regards to the recent surgery. She continues on antiestrogen therapy. We asked her to return to our office in 1 year. She may call if she has any questions or concerns in the interim. Assessment & Plan (Attending) I agree with note created by Lea Sampson PA-C. I reviewed the patient's chart and information with her. I have examined and evaluated the patient. I reviewed relevant clinical information and answered the patient's and/or family' s questions. FUNERAL HOME ASSISTANT Total Time In Follow-Up I spent 15 minutes speaking to the patient in performing examination. I spent 15 minutes reviewing information and completing this note. Total Time (Attending) In Follow-Up I spent 15 minutes examining and counseling the patient. FUNERAL HOME ASSISTANT Copy To Devante Hopkins M.D.; Fercho Holland D.O.; Armand Kearney M.D.
== END | disposition home or self-care (01) ==
LOC: C.ONC 13:25
PROVIDERS: ATTEND Physician Assistant Medical
DX: Z08 Encounter for follow-up examination after completed treatment for malignant neoplasm (principal); Z92.3 Personal history of irradiation; Z85.3 Personal history of malignant neoplasm of breast

== ENCOUNTER → 2017-05-05 | Outpatient (CLI) | payer OTHER ==
[~2017-05-05] MED LIST changes: -METF1TAB53 PO; -PRED-301 PO; -RXC5 PEG
[2017-05-05 09:17] LABS: ALBUMIN 2.8 gm/dl (3.4-5.0); ALKALINE PHOSPHATASE 105 U/L (45-117); ALT/SGPT 36 U/L (12-78); AST/SGOT 35 U/L (15-37); PHOSPHORUS 4.5 mg/dl (2.5-4.9); TOTAL PROTEIN 7.6 gm/dl (6.4-8.2)
[2017-05-09 16:38] LABS: ANA SCREEN TC 249X NEGATIVE (NEGATIVE); VITAMIN B6** TC 926 5.8 ng/mL (2.1-21.7)
== END | disposition home or self-care (01) ==
LOC: C.LAB 08:07
PROVIDERS: ATTEND Psychiatry & Neurology Neurology
DX: R29.898 Other symptoms and signs involving the musculoskeletal system (principal)

== ENCOUNTER → 2017-09-14 | Outpatient (CLI) | payer OTHER ==
[~2017-09-14] MED LIST changes: -ANAS1TAB19 PO; +ANAS1TAB59 PO; -CLON0.5T3 PO; +CLON0.5T9 PO; +POTA-639 PO; -POTA20TA16 PO
[2017-09-14 10:10] LABS: BASO % 0.4 %; BASO ABS # 0.04 K/uL (0-0.2); EOS % 4.8 %; EOS ABS # 0.47 K/uL (0-0.5); HEMATOCRIT 44.5 % (37-47); HEMOGLOBIN 14.4 g/dL (12.0-16.0); IG# 0.05 K/uL (0.00-0.02); LYMPH % 24.5 %; LYMPH ABS # 2.41 K/uL (1.2-3.4); MEAN CELL VOLUME 91.9 fL (80-100); MEAN CORPUSCULAR HEMOGLOBIN 29.8 pg (25-34); MEAN CORPUSCULAR HGB CONC 32.4 g/dl (32-36); MEAN PLATELET VOLUME 10.7 fL (7.4-10.4); MONO % 5.2 %; MONO ABS # 0.51 K/uL (0.11-0.59); NEUT % 64.6 %; NEUT ABS # 6.37 K/uL (1.4-6.5); PLATELET COUNT 285 K/uL (130-400); RED CELL DISTRIBUTION WIDTH CV 14.9 % (11.5-14.5); RED CELL DISTRIBUTION WIDTH SD 50.1 fL (36.4-46.3); WHITE BLOOD COUNT 9.85 K/uL (4.8-10.8)
[2017-09-14 10:52] LABS: ALBUMIN 3.3 gm/dl (3.4-5.0); ALKALINE PHOSPHATASE 83 U/L (45-117); ALT/SGPT 26 U/L (12-78); AST/SGOT 20 U/L (15-37); BLOOD UREA NITROGEN 17 mg/dl (7-18); CARBON DIOXIDE 25 mmol/L (21-32); CREATININE 0.89 mg/dl (0.60-1.20); GLUCOSE 136 mg/dl (70-99); SODIUM 137 mmol/L (136-145); TOTAL PROTEIN 7.6 gm/dl (6.4-8.2)
[2017-09-18 22:40] LABS: CA 27.29** TC 20123E 34 U/ML (<38); CA15-3 BREAST ANTIGEN 5819 23 U/mL (<32)
== END | disposition home or self-care (01) ==
LOC: C.LAB 09:28
PROVIDERS: ATTEND Internal Medicine Hematology & Oncology
DX: C50.912 Malignant neoplasm of unspecified site of left female breast (principal)

== ENCOUNTER → 2017-09-19 | Outpatient (CLI) | payer OTHER ==
--- NOTE | 2017-09-19 10:26 | DIAGNOSTIC IMAGING REPORT ---
PET/CT SKULL-THIGH CLINICAL HISTORY: 61 years-old Female presenting with BREAST CANCER diagnosed in 1994, last chemotherapy in 1994, last radiation treatment in September 2016, diabetic, history of smoking, history of rectosigmoid colon resection for diverticulitis, left chest wall recurrent breast ductal carcinoma now resected. TECHNIQUE: PET/CT was performed from the skull base through the proximal thighs following the intravenous administration of 13.371 mCi of F18-FDG. Blood glucose level 138 mg/dL. The injection was performed at 8:31 AM and imaging began at 9:[address] was performed for attenuation correction purposes and anatomic localization. COMPARISON: 10/25/2016. CT DOSE (mGy.cm): The estimated cumulative dose is 883.99. FINDINGS: Head and neck: No FDG-avid mass in the visualized portion of the head or neck. No FDG avid or enlarged lymph nodes in the neck. Chest: Normal thyroid and thoracic inlet. Postsurgical changes of the left axilla. Bilateral mastectomies suggested. Additional scar along the superior left chest may be from prior resection of the chest wall metastasis. No FDG avidity at this site. No FDG avid axillary, supraclavicular, hilar or mediastinal lymphadenopathy. Evaluation of the pee on anatomic imaging limited without intravenous contrast. Atherosclerosis of the aorta. Normal heart size. Coronary artery and aortic valve calcification. No pericardial or pleural effusion. No FDG avid focal infiltrate or nodule. Mosaic attenuation may suggest small airways disease. Subpleural solid 5 mm nodule in the lingula is suboptimally evaluated given respiratory motion artifact though unchanged. Airways patent. Abdomen and pelvis: Normal physiologic distribution of radiotracer in the gastrointestinal and genitourinary tracts. No FDG avid lymphadenopathy or mass lesion. Borderline hepatic steatosis. Cholelithiasis. Postsurgical changes of left hemicolectomy with a transverse colostomy in the left mid abdomen. Fat-containing parastomal hernia. Postsurgical changes of the ventral abdominal wall with small recurrent fat containing hernia (series 3 image 155). This contains the antimesenteric wall of proximal transverse colon consistent with a Almeida-type hernia. Prosthetic mesh likely in place in the ventral abdominal wall. No bowel obstruction. Anastomotic suture lines also evident in small bowel in the mid abdomen. Bladder grossly normal. Musculoskeletal: Degenerative changes of the spine. No FDG avid or destructive osseous lesion. Sclerotic focus in the left scapula and right sacrum are photopenic. The sacral lesion may represent a treated metastatic focus. IMPRESSION: 1. Follow-up PET/CT demonstrates no evidence of FDG avid metastatic disease in the imaged body. 2. Additional findings as above. Electronically signed by: Armand Polk M.D. 09/19/2017 10:24 AM Dictated Date/Time: 09/19/2017 10:09 AM
== END | disposition home or self-care (01) ==
LOC: C.PET 08:12
PROVIDERS: ATTEND Internal Medicine Hematology & Oncology
DX: C50.912 Malignant neoplasm of unspecified site of left female breast (principal)

== ENCOUNTER 2019-11-05 06:45 | Inpatient (IN) ==
--- NOTE | 2019-10-14 14:25 | PAT Medication Instructions ---
Medication Instructions Date of Service October 14, 2019 Home Medications Medication Instructions Recorded gabapentin 300 mg capsule 300 mg PO .COMPLEX #360 cap 08/19/19 metformin 1,000 mg tablet 1,000 mg PO BID #180 tab 08/19/19 ondansetron HCl 4 mg tablet 4 mg PO Q6H PRN #90 tab 08/19/19 paroxetine HCl 30 mg tablet 30 mg PO QAM #90 tab 08/19/19 lorazepam 0.5 mg tablet 0.5 mg PO BID PRN #60 tab 08/20/19 carvedilol 25 mg tablet 25 mg PO BID #180 tab 10/01/19 furosemide 40 mg tablet 40 mg PO QAM #90 tab 10/01/19 losartan 25 mg tablet 25 mg PO BID #180 tab 10/01/19 potassium chloride 20 mEq 20 meq PO QAM #90 tab 10/01/19 tablet,extended release acetaminophen [Tylenol Extra Strength] 500 - 1,500 mg PO Q6H PRN denosumab 120 mg/1.7 mL (70 mg/mL) subcutaneous solution 120 mg SQ MONTHLY fulvestrant 125 mg/2.5 mL intramuscular syringe 500 mg IM MONTHLY palbociclib 125 mg capsule 125 mg PO .COMPLEX gabapentin 300 mg capsule 300 mg PO .COMPLEX metformin 1,000 mg tablet 1,000 mg PO BID ondansetron HCl 4 mg tablet 4 mg PO Q6H PRN paroxetine HCl 30 mg tablet 30 mg PO QAM lorazepam 0.5 mg tablet 0.5 mg PO BID PRN meclizine 25 mg tablet 25 mg PO TID carvedilol 25 mg tablet 25 mg PO BID furosemide 40 mg tablet 40 mg PO QAM losartan 25 mg tablet 25 mg PO BID potassium chloride 20 mEq tablet,extended release 20 meq PO QAM ASK your prescriber and surgeon denosumab 120 mg/1.7 mL (70 mg/mL) subcutaneous solution 120 mg SQ MONTHLY fulvestrant 125 mg/2.5 mL intramuscular syringe 500 mg IM MONTHLY palbociclib 125 mg capsule 125 mg PO .COMPLEX DO NOT take the morning of surgery metformin 1,000 mg tablet 1,000 mg PO BID furosemide 40 mg tablet 40 mg PO QAM losartan 25 mg tablet 25 mg PO BID potassium chloride 20 mEq tablet,extended release 20 meq PO QAM Take morning of surgery With a small sip of water, OTHERWISE NOTHING TO EAT OR DRINK AFTER MIDNIGHT: acetaminophen [Tylenol Extra Strength] 500 - 1,500 mg PO Q6H PRN (okay to take up to 4 hours prior to surgery if needed) gabapentin 300 mg capsule 300 mg PO .COMPLEX ondansetron HCl 4 mg tablet 4 mg PO Q6H PRN (if needed) paroxetine HCl 30 mg tablet 30 mg PO QAM lorazepam 0.5 mg tablet 0.5 mg PO BID PRN (if needed) meclizine 25 mg tablet 25 mg PO TID carvedilol 25 mg tablet 25 mg PO BID Take evening before surgery acetaminophen [Tylenol Extra Strength] 500 - 1,500 mg PO Q6H PRN (if needed) metformin 1,000 mg tablet 1,000 mg PO BID ondansetron HCl 4 mg tablet 4 mg PO Q6H PRN (if needed) lorazepam 0.5 mg tablet 0.5 mg PO BID PRN (if needed) meclizine 25 mg tablet 25 mg PO TID carvedilol 25 mg tablet 25 mg PO BID losartan 25 mg tablet 25 mg PO BID Other Notes If you have any questions please call us at [phone] or [phone] or [phone] or [phone]
--- NOTE | 2019-10-16 13:38 | Anesthesiology Consultation ---
Date of Service October 16, 2019 Assessment & Plan (1) Encounter for pre-operative examination: - Per assessment on 10/15: Travel screen negative. 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 No known COVID-19 positive contacts or current COVID-19 related symptoms. Surgeon arranging preop COVID testing (scheduled 10/30; [place]). Awaiting results. - Cardiology office visit: 10/01/19: "The patient is stable from a cardiovascular standpoint. Fortunately, left ventricular systolic function remains in normal. She has no limiting cardiac symptoms and has good functional status. She is an acceptable cardiac risk for joint replacement surgery as long she continued her usual cardiac medications. No further cardiac testing is necessary." Continue current meds. F/U one year recommended. - Radiation oncology: 09/26/19: "I have spoken with Dr. Trent. We are in agreement that the patient should proceed with some form of prophylactic stabilization of the left femoral neck to prevent pathologic fracture followed by adjuvant external beam radiation therapy." - Check BSG AM DOS - SAB: Patient reports "does not want to hear" surgery/tools perioperative. Reassurance provided/questions answered. Chart Review Chart Review: Acceptable Risk for Surgery and Patient seen in Pre Admission Testing Teaching & Discussion Pre-Anesthesia Teaching/Discussion Notes: Instructed NPO after midnight before surgery,except medications with 15 cc of water. Medication instructions provided according to the PAT guidelines. History Surgery Operation Date: 11/05/19 09:30 Proposed Procedures p Left Long Troch Nail versus Total Hip Replacement - Fercho Trent MD Height/Weight Height: 5 ft 5 in Weight: 114.3 kg Allergies Allergy/AdvReac Type Severity Reaction Status Date / Time aspirin Allergy Mild hives Verified 10/16/19 16:09 ibuprofen Allergy Mild hives Verified 10/16/19 16:09 tamoxifen Allergy Unknown temporary Verified 10/16/19 16:09 left eye vision loss Medications Home Medications Medication Instructions Recorded Confirmed Last Taken acetaminophen [Tylenol Extra 500 - 1,500 mg PO Q6H PRN 05/06/18 10/08/19 12/14/18 10:00 Strength] denosumab 120 mg/1.7 mL (70 mg/mL) 120 mg SQ MONTHLY ml 04/21/19 10/08/19 Unknown subcutaneous solution fulvestrant 125 mg/2.5 mL 500 mg IM MONTHLY 04/21/19 10/08/19 Unknown intramuscular syringe palbociclib 125 mg capsule 125 mg PO .COMPLEX 04/21/19 10/08/19 Unknown gabapentin 300 mg capsule 300 mg PO .COMPLEX #360 cap 08/19/19 10/08/19 Unknown metformin 1,000 mg tablet 1,000 mg PO BID #180 tab 08/19/19 10/08/19 Unknown ondansetron HCl 4 mg tablet 4 mg PO Q6H PRN #90 tab 08/19/19 10/08/19 Unknown paroxetine HCl 30 mg tablet 30 mg PO QAM #90 tab 08/19/19 10/08/19 Unknown lorazepam 0.5 mg tablet 0.5 mg PO BID PRN #60 tab 08/20/19 10/08/19 Unknown meclizine 25 mg tablet 25 mg PO TID tab 09/26/19 10/08/19 Unknown carvedilol 25 mg tablet 25 mg PO BID #180 tab 10/01/19 10/08/19 Unknown furosemide 40 mg tablet 40 mg PO QAM #90 tab 10/01/19 10/08/19 Unknown losartan 25 mg tablet 25 mg PO BID #180 tab 10/01/19 10/08/19 Unknown potassium chloride 20 mEq 20 meq PO QAM #90 tab 10/01/19 10/08/19 Unknown tablet,extended release Past Medical History Medical History (Updated 10/16/19 @ 13:46 by Sarah Pederson) Anxiety Benign hypertension Benign positional vertigo Cardiomyopathy Chronic systolic CHF (congestive heart failure), NYHA class [address] 2017 (after diverticular perforation complications) Depression Diverticular disease DM type 2 (diabetes mellitus, type 2) NIDDM Hyperlipidemia Lumbar disc herniation with radiculopathy LV dysfunction Metastatic breast cancer h/o bl mastectomy, chemo 20 years ago upon initial diagnosis of breast CA; evidence of bone mets per imaging beginning of 2019- no limb restrictions Morbid obesity PAC (premature atrial contraction) h/o PVC (premature ventricular contraction) h/o Exercise / Class Metabolic Activity III < 4 Walking/Shop/Light housework Past Family History Family History Mother Breast cancer Sister Breast cancer Father Myocardial infarction Prostate cancer Other Cancer Heart disease Hypertension Denies family history of Ovarian cancer Colorectal cancer Past Surgical History Surgical History H/O bilateral mastectomy History of cardiac cath 2017 - [place] - cardiomyopathy - no stents/angioplasty History of hysterectomy History of intestinal surgery History of lumbar laminectomy History of surgery for malignant neoplasm 2017 removal of substernal mass + radiation Past Anesthesia History No Hx of Anesthesia Complications (except PONV) and No Family Hx of Anesthesia Complications History of PONV History of PONV and Hx of Motion Sickness Social History Smoking Status: Current every day smoker tobacco type: cigarettes Smoking cigarettes per day: 1/2 ppd x 30 years Do You Dip or Chew Tobacco: No Hx Alcohol Use: Yes alcohol intake frequency: holidays/special occasions only Hx Substance Use: No substance use type: does not use Review of Systems Patient denies chest pain, shortness of breath, fever, chills, cough, wheezing, palpitations. Physical Exam Vital Signs VITALS BP 106/60 P 82 TEMP 98.4 SP02 93-95% RA RESP 18 PHYSICAL Full neck and c-spine range of motion. Full TMJ range of motion. TMD 3 finger breaths Mallampati Score 1 Dentition: full upper plate, partial lower plate (approximately 5 remaining on lower) Lungs: clear throughout to auscultation Cardiac: regular rate and rhythm, no murmurs noted Spine: normal Carotid arteries: negative bruit Extremities: no edema Testing Laboratory Results 10/16/19 14:00 PT 10.9 Seconds (9.0-12.0) 10/16/19 14:00 INR 1.0 (0.9-1.1) 10/16/19 14:00 APTT 28.8 Seconds (21.0-31.0) 10/16/19 14:00 Blood Type A Positive 10/16/19 14:00 Antibody Screen NEGATIVE 10/16/19 14:00 10/09/19 WBC 6.77 H/H 15.7/48.3 PLATELETS 307 HGBA1C 6.3% Chest X-Ray Date: 10/16/19 Focal areas of sclerosis within the right anterior third through seventh ribs. This has progressed compared to the prior study and could represent metastatic disease or healing/healed fractures. Chronic diffuse interstitial thickening, unchanged. Stable enlargement of the central pulmonary arteries suggesting pulmonary arterial hypertension. Report forwarded to radiation oncology for continuity of care. Echocardiogram Date: 10/01/19 EF 60-65%. No RWMA. Mild RAD. Borderline LAD. Grade I DD. Mild TR. Compared to 11/09/17 ECHO, LV systolic function has improved. Cardiac Catheterization Date: 07/10/16 Essentially normal coronary arteries. Nonischemic cardiomyopathy. Elevated biventricular filling pressures. Moderate to severe pulmonary hypertension. Reduced cardiac output (Pa Sat 43%).
--- NOTE | 2019-10-16 14:27 | XRay Report ---
XR chest Pre-admission PA/Lat HISTORY: Preop. COMPARISON: Chest 05/06/2018. PET scan 10/14/2018. FINDINGS: No pneumothorax. No pleural effusions. The heart is normal in size. Surgical clips within t he left axilla. Stable lobular appearance to the bilateral axilla. This favors prominence of the pulm onary arteries. Diffuse chronic interstitial thickening, unchanged. Focal areas of sclerosis within t he right anterior third through seventh ribs. IMPRESSION: 1. Focal areas of sclerosis within the right anterior third through seventh ribs. This has progressed compared to the prior study and could represent metastatic disease or healing/healed fractures. 2. Chronic diffuse interstitial thickening, unchanged. 3. Stable enlargement of the central pulmonary arteries suggesting pulmonary arterial hypertension. ACT 112: Negative or not required by law. Electronically signed by: Sebastien Lovett M.D. 10/16/2019 2:25 PM
[2019-10-16 14:48] LABS: Partial Thromboplastin Time 28.8 Seconds (21.0-31.0); Prothrombin Time 10.9 Seconds (9.0-12.0)
[2019-10-16 16:10] LABS: BUN Creatinine Ratio 19.8 (10-20); C Reactive Protein 1.64 mg/dl (0-0.29); Calcium 9.1 mg/dl (8.5-10.1); Creatinine Clr Calc Pharmacy 68.3 ml/min; Est GFR (Non-African American) 56.1; Potassium 5.1 mmol/L (3.5-5.1)
--- NOTE | 2019-10-16 19:06 | Electrocardiogram Report ---
Test Reason : Blood Pressure : / mmHG Vent. Rate : 092 BPM Atrial Rate : 092 BPM P-R Int : 182 ms QRS Dur : 076 ms QT Int : 362 ms P-R-T Axes : 075 087 069 degrees QTc Int : 447 ms Normal sinus rhythm Normal ECG When compared with ECG of 06-MAY-2018 09:58, No significant change was found Confirmed by Cr Alcantar ([id number]) on 10/16/2019 7:06:00 PM Referred By: Fercho Trent Confirmed By:Orville Alcantar
--- NOTE | 2019-11-01 18:57 | History and Physical Report ---
DATE OF ADMISSION: 11/05/2019 CHIEF COMPLAINT: Left femoral neck pathological lesion. HISTORY OF PRESENT ILLNESS: A 63-year-old female who presents now for surgical treatment of her left hip. She has a history of metastatic breast cancer that is metastasized to the bone. She has been treated and followed by her oncologist and treated with chemotherapy as well as radiation oncology. She had a bone scan, which showed an increased uptake in the femoral neck. We did an x-ray, which looked fairly benign other than showing some mild arthritic change. We got an MRI and there was a very large lesion in her femoral neck. She presents for followup and treatment. The concern is impending fracture. She does not have much pain. She does use a cane to get around, but mostly for balance purposes. She now presents for surgical management of this impending pathological fractures. PAST MEDICAL HISTORY: Significant for, 1. Metastatic breast cancer. 2. History of congestive heart failure in the past. 3. Low back pain/sciatica. 4. Diabetes. 5. Obesity. 6. Depression. 7. History of some bowel issues 2 years ago and pretty extensive infection, which has been resolved for which she was hospitalized at [facility]. PAST SURGICAL HISTORY: Includes, 1. Hysterectomy. 2. Bilateral mastectomies. 3. Bowel resection with current colostomy done at [facility] 2 years ago. ALLERGIES: ASPIRIN AND ADVIL. CURRENT MEDICINES: Include, 1. Tylenol. 2. Carvedilol. 3. Xgeva. 4. Fulvestrant. 5. Furosemide. 6. Gabapentin. 7. Lorazepam. 8. Meclizine. 9. Metformin. 10. Ondansetron. 11. Palbociclib. 12. Paroxetine. 13. Potassium chloride. SOCIAL HISTORY: A 63-year-old female. 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 She does live alone. Does have a significant smoking history. FAMILY HISTORY: Noncontributory. REVIEW OF SYSTEMS: Significant for diabetes. Denies any chest pain or shortness of breath. No history of DVT or PE. No known bleeding problems. She does have this metastatic cancer. Of note, she was recently seen by Dr. Barkley and cleared for surgery. PHYSICAL EXAMINATION: GENERAL: Shows a pleasant, middle-aged female. Looks to be in reasonably good health. HEENT: Benign. NECK: Supple, no lymphadenopathy. LUNGS: Clear to auscultation. HEART: Has a regular rate and rhythm. ABDOMEN: Soft, nontender, nondistended. EXTREMITIES: Grossly neurovascularly intact except as follows: Examination of left hip and leg reveals the patient walks with the use of a cane. Leg lengths appear clinically equal. She has no pain with hip motion. Slightly limited internal rotation. Negative straight leg raise. No knee effusion. X-RAYS: X-rays of the left hip were reviewed. It shows fairly normal-appearing bony architecture. She does have some mild to at best moderate arthritic changes in the left hip. No obvious bone destruction. No obvious impending fracture. A bone scan was reviewed. It shows multiple areas of increased uptake around the pelvis as well as in the left femoral neck area with a fairly hot spot in the femoral neck. Multiple lytic lesions as well. MRI: MRI of the left hip was reviewed. She has a very large lesion in the femoral neck encompassing almost the entire femoral neck and up into the femoral head. Mild arthritic changes of the hip. ASSESSMENT: A 63-year-old female with multiple medical issues including diabetes, metastatic breast cancer, history of congestive heart failure in the past, impending pathological femur fracture, and history of bowel obstruction in the past with this impending fracture in her left femoral neck. It does look to be a blastic lesion but encompasses the majority of the femoral neck and up in the femoral head. It did go so far into the head, I am not sure if we can get real good fixation and reliable fixation in the femoral head as a result. PLAN: We discussed treatment options. After extensive review of all her images and all of her studies, I think the best treatment for her is some degree of hip replacement. She has got some underlying hip arthritis. This lesion goes into the femoral head and I am not sure if we can get real great fixation into the femoral head to protect her hip that much with internal fixation. In light of this, we are going to proceed to do a left total hip replacement. I will likely use a cemented stem. The risks and benefits of this procedure were explained to the patient including but not limited to DVT, PE, , infection, neurological injury, vascular injury, bleeding problem, pain, limited range of motion, stiffness, failure to relieve her symptoms, incomplete relief of symptoms, need for further surgery in the future, fracture, leg length inequality, nerve palsy, dislocation, etc. The patient understands and desires to proceed. Informed consent was obtained. She does have this history of cancer and at increased risk of thrombosis. We will use Xarelto postoperatively for DVT prophylaxis as she has got an ALLERGY TO ASPIRIN as well. I did talk to the radiation oncologist and he felt like she may live several years with this breast cancer, yet in light of this, we will proceed with the above plan. As far as discharge plans, she is hoping to be discharged to home with some home health and some family assistance. She will likely need a nicotine patch in the hospital due to her history of smoking.
[~2019-11-05 06:45] MED LIST changes: -ACET-1256 PO; +ACETAMINOPHEN 500 MG TAB PO SCH; -ANAS1TAB59 PO; +BUPIVACAINE 0.5 % 5 MG/1 ML PF 10ML VIAL ONE; -CARV25TA2 PO; +CEFAZOLIN 2000MG 2,000 MG/15 ML SYR IV SCH; -CLON0.5T9 PO; -DOCU-94 PO; +FAMOTIDINE 20 MG TAB PO SCH; -FRS/40 PO; +GABAPENTIN 600 MG DOSE PO SCH; -LOSA1TAB PO; +LR 500ML BOLUS, THEN 15ML/HR IV SCH; +LR 60ML/HR IV SCH; -MULT-506 PO; -PARO30TA3 PO; -POTA-639 PO
--- NOTE | 2019-11-05 06:53 | History & Physical Bridge Note ---
Date of Service November 05, 2019 History & Physical Bridge Note I have examined the patient, reviewed the History & Physical and in the interval since the performance of the History & Physical I have noted the following changes of clinical significance: no changes noted
[2019-11-05] MEDS ORDERED: MIDAZOLAM HCL 1 MG/ML 2ML VIAL ONE ×2 (07:46)
[2019-11-05] MEDS ORDERED: fentaNYL citrate 100 MCG/2 ML VIAL ONE (07:46)
[2019-11-05] MEDS ORDERED: LIDOCAINE HCL 2% 2 ML VIAL/AMP(20MG/ML) INFIL ONE (07:46)
[2019-11-05] MEDS ORDERED: ePHEDrine sulfate 50 MG/ML SYR ONE (07:47)
[2019-11-05] MEDS ORDERED: PHENYLEPHRINE 100MCG/ML 5ML SYR ONE (07:47)
[2019-11-05] MEDS ORDERED: PROPOFOL IV EMULSION 10 MG/ML 20 ML VIAL IV ONE ×2 (07:47→10:29)
[2019-11-05] MEDS ORDERED: EPINEPHrine INJ 1 MG/ML AMP ONE (08:38)
[2019-11-05] MEDS ORDERED: BUPIVACAINE 0.5 % 5 MG/1 ML MPF 30ML VIAL ONE (08:39)
[2019-11-05] MEDS ORDERED: BACITRACIN INJ 50,000 UNIT VIAL ONE (08:39)
[2019-11-05] MEDS ORDERED: MoRPHine SULFATE PF 1 MG/ML 10 ML AMP/VIAL ONE (08:45)
[2019-11-05] MEDS ORDERED: MoRPHine SULFATE PF 1 MG/ML 10 ML AMP/VIAL INT SPINAL ONE (09:06)
[2019-11-05] MEDS ORDERED: ePHEDrine sulfate 50 MG/ML AMP IV PRN (09:06)
[2019-11-05] MEDS ORDERED: NALOXONE HCL 1 MG in SODIUM CHLORIDE 0.9% 1000ML 1,000 ML IV PRN (09:06)
[2019-11-05] MEDS ORDERED: MEPERIDINE HCL 25 MG/ML CARP/VIAL IV PRN (09:06)
[2019-11-05] MEDS ORDERED: NALOXONE HCL 0.4 MG/1 ML VIAL/CARP IV PRN ×2 (09:06→15:02)
[2019-11-05] MEDS ORDERED: NALOXONE HCL 0.08 MG in SYRINGE 1.8 ML IV PRN (09:06)
[2019-11-05] MEDS ORDERED: ONDANSETRON INJ 2 MG/ML 2 ML VIAL IV PRN (09:06)
[2019-11-05] MEDS ORDERED: DiphenhydrAMINE HCL 50 MG/ML VIAL IV PRN (09:06)
[2019-11-05] MEDS ORDERED: LACTATED RINGER'S 500 ML IV PRN (09:06)
[2019-11-05] MEDS ORDERED: TRANEXAMIC ACID / 0.7% NACL 1,000 MG/100 ML BAG IV STA (09:11)
[2019-11-05] MEDS ORDERED: DC INTRASPINAL MORPHINE SCH (09:15)
[2019-11-05] MEDS ORDERED: NO NARCOTICS OR SEDATIVES SCH (09:15)
[2019-11-05] MEDS ORDERED: TRANEXAMIC ACID / 0.7% NACL 1000MG/100ML BAG IV ONE (09:15)
[2019-11-05] MEDS ORDERED: SODIUM CHLORIDE 0.9% 1000ML 1,000 ML IV SCH (09:15)
--- NOTE | 2019-11-05 11:16 | Post Operative Brief Note ---
PG Immediate Post Op with CF Date of Surgery November 05, 2019 Pre & Post Diagnosis Operation Date: 11/05/19 09:10 Pre-Op Diagnosis: Impending Pathologic Femur Fracture - Left Femur Post-Op Diagnosis: Impending Pathologic Femur Fracture - Left Femur I identified the patient and participated in the time-out.: Yes Procedure Operation Date: 11/05/19 09:10 Actual Procedures p Left Cemented Total Hip Replacement(Left) - Fercho Trent MD Surgeon Fercho Trent MD Bed And Breakfast Cook Tien, PAC Estimated Blood Loss 200 Findings Consistent with Post-Op Diagnosis Fluids 1800 cc Specimens Specimen Description: Permanent Solution: A.) Left Femoral Head - history of metastatic breast cancer Drains [place] Catheter (16 slovenian espana 10ml balloon; urine output monitored throughout entire case by anesthesia staff) Anesthesia Type Spinal MAC Complications none Disposition Accompanied Patient To Recovery: Yes Disposition: Recovery Room
[2019-11-05] MEDS ORDERED: ALBUT/IPRATROP 3MG/0.5MG NEB 3 ML VIAL NEB STA (11:26)
--- NOTE | 2019-11-05 11:40 | Operative Report ---
Post Operative Report Pre & Post Diagnosis Operation Date: 11/05/19 09:10 Pre-Op Diagnosis: Impending Pathologic Femur Fracture-left femoral neck Post-Op Diagnosis: Impending Pathologic Femur Fracture-left femoral neck I identified the patient and participated in the time-out.: Yes Procedure Operation Date: 11/05/19 09:10 Actual Procedures p Left Cemented Total Hip Replacement(Left) - Fercho Trent MD Surgeon Fercho Trent MD Cushion Sewer Tien, PAC Estimated Blood Loss 200 Findings Consistent with Post-Op Diagnosis Fluids 18 cc Specimens Left femoral head sent for pathology along with the femoral neck. Drains None. Anesthesia Type Spinal MAC Complications none Disposition Accompanied Patient To Recovery: Yes Disposition: Recovery Room Indications Patient is 63-year-old female with a known history of fairly widely spread metastatic breast cancer. She had several bone scans which showed narrowing at increased uptake in the femoral neck. This is getting harder on bone scan. She had an MRI which showed an extensive lesion in the femoral neck which involve the entire diameter. It was felt that this is at significant risk for fracture. The patient had some moderate underlying hip arthritis and the lesion extended into the femoral head I did not feel like to get really good fixation into a noncancerous bone. She elected to total hip arthroplasty. We used a cemented longstem and will provide maximal stability for concerns for additional lesions of her femur. Description of Procedure Operative implants consist of: 1. Biomet G7 size 50 mm acetabular shell. 2. 6.5 cancellus acetabular screws 1 of 35 mm length 125 mm length. 3. An apex hole custom grinder. 4. Highly cross-linked polyethylene liner with a 50 mm outer diameter and 36 mm diameter. 5. Mata endurance size 2 x 180 mm cemented femoral stem. 6. +5/36 mm metal articular ball. Patient was taken to the operating identified and placed in the operating table supine position protectors were properly padded. IV antibiotics arrived by anesthesia team. A spinal anesthetic had been implemented holding area. Rice catheter was placed in sterile fashion. Patient then placed in the right lateral decubitus position. Axillary roll was placed. Stulberg hip positioner was used for positioning. The left hip and leg were then prepped and draped in usual sterile fashion. A posterior lateral posterior left hip was then performed through a curvilinear incision centered over the greater trochanter. Sharp dissection got through subcutaneous is down to level the IT band gluteal fascia. The IT band gluteal fascia then incised longitudinally in line with skin incision. The underlying greater bursa was excised. The piriformis and external rotators were tagged and taken off the posterior aspect of the hip joint capsule. Great care was taken throughout the procedure protect the sciatic nerve at all times. Posterior capsulotomy was then performed leaving a large flap for later repair. Hip was internally rotated and dislocated. Femoral neck osteotomy cut was made with Final Cut about 5 mm above the lesser trochanter. Femoral head was removed and sent for pathology. The bone did look fairly sclerotic in this area. The femur was retracted anteriorly. Attention drawn the acetabulum. The acetabular labrum was excised per the pulmonary fat was excised. Sequential reaming the acetabular was then performed again with size 43 and progressing up to 49. I did reamed slightly with a 50. A 50 mm Biomet G7 acetabular shell was then placed in about 40 degrees lateral opening and 20 degrees of anteversion. It was fixed with two 6.5 cancellus acetabular screws. Some small anterior osteophytes removed. Trial liner was placed. Attention drawn the femur. Graft the proximal femur was entered with a cookie-cutter followed by canal finder. I then reamed up to a size 12. I then broached beginning with a size 1 and the then the 2 broach. I could not quite get the 2 broach down. We did trialed the implant were able to get this in the entire way down the canal. Therefore I did not do excessive broaching for concerns of compromising her bone. We then trialed the hip. The implant was loose in the canal so well we could only signing teacher length but leg lengths seemed appropriate and soft tissue seemed appropriate. We elect to place these implants. All trial implants were removed. An apex hole luminary was placed. Highly cross-linked polyethylene liner was placed. A cement restrictor was placed distally. A double batch Palacos G cement was then mixed and injected in the canal and a size 2 endurance 180 mm revision stem was then cemented in place. All extraneous cement was removed. Once the cement hardened we trialed the hip and the leg lengths and soft tissue tension seemed most appropriate with a +5 articular ball. We did use a 36 head in order to maximize her stability. A +5/36 mm metal articular ball was placed. Hip was located once again found to be stable. Attention drawn toward closing. Nupathe wounds irrigated copious pulsatile lavage solution. I did inject locally with 60 cc of half percent Marcaine with epinephrine. The posterior capsule and external rotators then repaired through drill holes in the posterior aspect the trochanter with #2 Tycron suture. The IT band gluteal fascia then closed in 1 PDS suture in a running fashion for subcutaneous tissues then closed with 2 layers with a deep layer #2-0 Vicryl sutures followed by a 2-0 Dexon suture in a buried interrupted fashion. Skin was closed with skin kervin. That we did place a Sadia wound VAC over the incision site due to very thickened a large soft tissue envelope. Patient transferred to the recovery room in stable condition. Patient tolerated procedure well and there were no complications. Uziel Chauhan, my physician senior administrative assistant, was present for the entire procedure. His assistance was essential and required for appropriate patient positioning, prepping and draping, surgical exposure, performing the technical details of the operation, placement the implants, closure of the wound, and placement of the sterile bandage. I attest to the content of the Intraoperative Record and any orders documented therein. Any exceptions are noted below.
--- NOTE | 2019-11-05 11:58 | XRay Report ---
XR chest 1V portable CLINICAL HISTORY: Shortness of breath COMPARISON STUDY: 10/16/2019 FINDINGS: The heart is enlarged. There is diffuse interstitial thickening likely secondary to congest davey failure/fluid overload. Interstitial inflammatory processes could appear similar. Surgical clips project over the left axillary region. There is no lobar consolidation. Multiple opacities within the right hemithorax are felt to represent anterior rib ends.[ IMPRESSION: 1. Cardiomegaly and progressive interstitial thickening, likely secondary to congestive failure/fluid overload. Clinical and radiographic follow-up recommended. ACT 112: Negative or not required by law. Electronically signed by: Kirill Mujica M.D. 11/05/2019 11:56 AM
--- NOTE | 2019-11-05 12:07 | XRay Report ---
XR hip 1V LT w pelvis CLINICAL HISTORY: IN PACU - A/P PELVIS and LATERAL HIP COMPARISON: None. DISCUSSION: There are postsurgical changes of a total left hip arthroplasty. The acetabular and femor al components appear well seated. There is no dislocation. IMPRESSION: Postsurgical changes of a total left hip arthroplasty. ACT 112: Negative or not required by law. Electronically signed by: Kirill Mujica M.D. 11/05/2019 12:06 PM
[2019-11-05] MEDS ORDERED: FUROSEMIDE 20 MG in SYRINGE 0 ML IV ONE (12:24)
[2019-11-05] MEDS ORDERED: FUROSEMIDE 40 MG/4 ML VIAL IV ONE (12:24)
[2019-11-05] MEDS ORDERED: FUROSEMIDE 40 MG/4 ML VIAL IV STA (12:26)
--- NOTE | 2019-11-05 14:04 | Anesthesiology Progress Note ---
Date of Service November 05, 2019 Anesthesia Post Procedure Vital Signs Vital Signs: Temp Pulse Pulse Resp BP BP Pulse Ox 11/05/19 13:48 82 16 83/42 L 92 11/05/19 13:40 85 16 100/44 L 87 L 11/05/19 13:30 83 16 95/49 L 89 L 11/05/19 13:20 84 20 95/46 L 91 11/05/19 13:10 84 16 86/53 L 99 11/05/19 13:00 80 16 104/65 99 11/05/19 12:50 84 16 109/58 L 99 11/05/19 12:40 82 18 80/61 L 99 11/05/19 12:30 82 22 93/72 L 98 11/05/19 12:20 88 24 90/63 L 96 11/05/19 12:10 90 22 134/80 96 11/05/19 12:00 91 H 22 110/76 95 11/05/19 11:50 92 H 24 117/92 93 11/05/19 11:49 22 94 11/05/19 11:40 90 26 H 138/99 93 11/05/19 11:30 91 H 30 H 126/97 88 L 11/05/19 11:23 90 28 H 126/89 90 11/05/19 11:19 96.8 F L 94 H 28 H 72/54 L 90 11/05/19 08:07 78 18 160/80 H 93 11/05/19 07:35 98.6 F 82 18 139/95 91 Transfer of Care Handoff Completed per policy Notes Mental Status: alert / awake / arousable and participated in evaluation Patient Amnestic to Procedure: Yes Nausea / Vomiting: adequately controlled Pain: adequately controlled Airway Patency, RR, SpO2: stable & adequate BP & HR: stable & adequate Hydration State: stable & adequate Neuraxial Anesthesia: was administered and sensory block is resolving Anesthetic Complications: no major complications apparent and Pt Satisfied with anesthetic care
[2019-11-05] MEDS ORDERED: GLUCAGON FOR INJ 1 MG VIAL SQ PRN (15:02)
[2019-11-05] MEDS ORDERED: ALUMINUM/MAGNESIUM SUSP 30 ML UDC PO PRN (15:02)
[2019-11-05] MEDS ORDERED: LORazepam 0.5 MG TAB PO PRN (15:02)
[2019-11-05] MEDS ORDERED: GLUCOSE 40% GEL 15 GM TUBE PO PRN (15:02)
[2019-11-05] MEDS ORDERED: DEXTROSE 50% 50 ML SYRINGE IV PRN (15:02)
[2019-11-05] MEDS ORDERED: CARBOHYDRATES FOR HYPOGLYCEMIA PO PRN (15:02)
[2019-11-05] MEDS ORDERED: GLUCOSE 10 TABS/TUBE PO PRN (15:02)
[2019-11-05] MEDS ORDERED: HYDROmorphone INJ 0.5 MG/0.5 ML SYR IV PRN (15:02)
[2019-11-05] MEDS ORDERED: bisacodyL 10 MG SUPP PR PRN (15:02)
[2019-11-05] MEDS ORDERED: METOCLOPRAMIDE HCL INJ 5 MG/ML 2 ML VIAL IV PRN (15:02)
[2019-11-05] MEDS ORDERED: MAGNESIUM HYDROXIDE SUSP 30 ML UDC PO PRN (15:02)
[2019-11-05] MEDS ORDERED: ONDANSETRON 4 MG OD TAB PO PRN (15:13)
[2019-11-05] MEDS ORDERED: PHARMACY GLYCEMIC MGMT CONSULT PRN (15:21)
--- NOTE | 2019-11-05 16:28 | Progress Notes ---
DATE: 11/05/2019 SUBJECTIVE: 63-year-old female postop day 1 from a left hybrid total hip arthroplasty done for impending pathological fracture. She is doing well. Not having any pain yet. No chest pain or shortness of breath. Not feeling dizzy or lightheaded. OBJECTIVE: VITAL SIGNS: Temperature 36.2. Vital signs stable. GENERAL: Shows a pleasant, middle-aged female. She is lying in bed, looks pretty comfortable. LUNGS: Clear to auscultation. HEART: Regular rate and rhythm. ABDOMEN: Soft, nontender, nondistended. EXTREMITIES: Grossly neurovascularly intact except as follows: Examination of the left lower extremity reveals the leg to be well aligned. Leg lengths are equal. Dressing is clean, dry and intact. She has a wound VAC in place. Thigh is soft and supple. She is neurologically intact. X-RAYS: X-rays of the left hip from recovery room reviewed. It shows left hybrid total hip arthroplasty. Components looked to be in good position. No signs of problems. ASSESSMENT: 63-year-old female postop from a left hybrid total hip arthroplasty done for impending pathological femur fracture. She is doing well. Pain is controlled. Hip is located. She is neurologically intact. PLAN: 1. DVT prophylaxis including thigh-high TEDs, SCDs, and we will start Xarelto at a prophylactic dose 24 hours postop due to her aspirin allergy along with her history of current breast cancer and increased risk for thrombosis. 2. PT/OT. Weight bear as tolerated. Left total hip protocol. 3. Pain control, doing well with current pain regimen. 4. IV antibiotics x24 hours. 5. Smoking history. She has a patch in place. 6. Disposition: Plan to discharge to home likely with some home health and her family's assistance.
[2019-11-05] MEDS: SODIUM CHLORIDE 0.9% 1000ML 1,000 ML IV SCH (17:12)
[2019-11-05] MEDS: Scopolamine CHECK PATCH PLACEMENT SCH (17:12)
[2019-11-05] MEDS: GABAPENTIN 300 MG CAP PO SCH ×2 (17:17→21:10)
[2019-11-05] MEDS: KETOROLAC 30 MG/ML VIAL IV SCH ×2 (17:17→21:11)
[2019-11-05] MEDS: CEFAZOLIN 2000MG 2,000 MG/15 ML SYR IV SCH (17:18)
[2019-11-05] MEDS: ASCORBIC ACID 500 MG TAB PO SCH (17:18)
[2019-11-05] MEDS: FERROUS GLUCONATE 324 MG TAB PO SCH (17:28)
[2019-11-05] MEDS ORDERED: TRANEXAMIC ACID / 0.7% NACL 1,000 MG/100 ML BAG IV SCH (17:30)
[2019-11-05] MEDS: INSULIN ASPART 100 UNITS/ML 3 ML PEN SC SCH ×2 (17:49→21:24)
[2019-11-05] MEDS ORDERED: LANTUS PER UNIT CHARGE SQ SCH (21:00)
[2019-11-05] MEDS ORDERED: LOSARTAN POTASSIUM 25 MG TAB PO SCH (21:00)
[2019-11-05] MEDS ORDERED: MECLIZINE HCL 25 MG TAB PO PRN (21:00)
[2019-11-05] MEDS ORDERED: carvediloL 25 MG TAB PO SCH (21:00)
[2019-11-05] MEDS: DOCUSATE SODIUM 100 MG CAP PO SCH (21:10)
[2019-11-05] MEDS: TAPENTADOL HCL ER 50 MG TABCR PO SCH (21:11)
[2019-11-05] MEDS: SENNA 8.6 MG TAB PO SCH (21:11)
[2019-11-05] MEDS ORDERED: SODIUM CHLORIDE 0.9% 1000ML 500 ML IV ONE (22:12)
[2019-11-06] MEDS: CEFAZOLIN 2000MG 2,000 MG/15 ML SYR IV SCH (00:26)
[2019-11-06] MEDS: Scopolamine CHECK PATCH PLACEMENT SCH ×3 (00:26→17:20)
[2019-11-06] MEDS ORDERED: SODIUM CHLORIDE 0.9% 1000ML 500 ML IV ONE ×3 (02:38→22:44)
[2019-11-06] MEDS: KETOROLAC 30 MG/ML VIAL IV SCH ×2 (04:36→10:07)
[2019-11-06] MEDS: GABAPENTIN 300 MG CAP PO SCH ×2 (05:45→13:06)
[2019-11-06] MEDS ORDERED: SODIUM CHLORIDE 0.9% 1000ML 250 ML IV ONE (06:04)
[2019-11-06] MEDS: SODIUM CHLORIDE 0.9% 1000ML 1,000 ML IV SCH ×3 (06:05→20:09)
[2019-11-06 06:35] LABS: Basophils # (auto) 0.01 K/uL (0-0.2); Basophils % (auto) 0.2 %; Eosinophils # (auto) 0.12 K/uL (0-0.5); Eosinophils % (auto) 2.4 %; Hematocrit (blood only) 38.2 % (37-47); Hemoglobin 11.9 g/dL (12.0-16.0); Immature Granulocytes # (auto) 0.03 K/uL (0.00-0.02); Immature Granulocytes % (auto) 0.6 %; Lymphocytes # (auto) 0.84 K/uL (1.2-3.4); Mean Corpuscular Hemoglobin 34.5 pg (25-34); Mean Corpuscular Hgb Conc 31.2 g/dL (32-36); Mean Corpuscular Volume 110.7 fL (80-100); Mean Platelet Volume 10.1 fL (7.4-10.4); Monocytes # (auto) 0.11 K/uL (0.11-0.59); Monocytes % (auto) 2.2 %; Neutrophils # (auto) 3.84 K/uL (1.4-6.5); Neutrophils % (auto) 77.6 %; Platelet Count 220 K/uL (130-400); RDW Coefficient of Variation 14.1 % (11.5-14.5); RDW Standard Deviation 56.8 fL (36.4-46.3); Red Blood Count 3.45 M/uL (4.2-5.4); White Blood Count 4.95 K/uL (4.8-10.8)
[2019-11-06 06:57] LABS: Macrocytosis Present
[2019-11-06 07:04] LABS: Calcium 6.9 mg/dl (8.5-10.1); Creatinine Clr Calc Pharmacy 32.2 ml/min; Est GFR (African American) 26.1; Est GFR (Non-African American) 22.6; Potassium 5.1 mmol/L (3.5-5.1)
--- NOTE | 2019-11-06 08:17 | Progress Notes ---
DATE: 11/06/2019 SUBJECTIVE: A 63-year-old female postop day 1 from a left hybrid total hip arthroplasty done for impending pathological fracture. She was doing well this morning. Not having much pain. No chest pain or shortness of breath. Not feeling dizzy or lightheaded. OBJECTIVE: VITAL SIGNS: Temperature 36.5. Vital signs stable. Blood pressure is little low at 91/54. Asymptomatic. GENERAL: Shows a pleasant elderly female. She is lying in bed and I had to wake her this morning. She is awake, alert and oriented and appropriate. EXTREMITIES: Examination of left hip reveals the dressing to be in place. Leg is well aligned. Large soft tissue envelope. She is neurologically intact. LABORATORY DATA: Hemoglobin is 11.9. Hematocrit 38.2. Electrolytes show increased creatinine at 2.23. ASSESSMENT: A 63-year-old female postop day 1 from a left hybrid total hip arthroplasty done for impending pathological femur fracture. Clinically, she is doing well. By lab tests, it looks like she may be a little bit volume depleted with an elevated creatinine and a little bit of low blood pressure. PLAN: 1. DVT prophylaxis including thigh-high TEDs, SCDs, and starting Xarelto 24 hours postop as she has an allergy to aspirin, also underlying metastatic breast cancer with increased risk for thrombosis. 2. PT/OT. She will weightbear as tolerated. 3. Pain control, doing pretty well with current pain regimen. 4. Medical management. We will have the medical doctors assess her for possible volume enhancement. 5. Disposition: She is hoping to be discharged to home with some home health once adequately recovered and medically stable.
--- NOTE | 2019-11-06 08:24 | Anesthesiology Progress Note ---
Date of Service November 06, 2019 Anesthesia Post Procedure Vital Signs Vital Signs: Temp Pulse Pulse Resp BP Pulse Ox 11/06/19 07:36 100 11/06/19 07:34 36.6 C 81 22 115/61 70 L 11/06/19 03:46 36.5 C 78 20 91/54 L 95 11/06/19 02:27 18 102/61 96 11/06/19 00:53 14 91 11/06/19 00:26 92/58 L 11/05/19 23:47 12 92/58 L 98 11/05/19 23:38 88/56 L 11/05/19 23:35 37 C 75 20 87/52 L 93 11/05/19 21:08 76 101/61 11/05/19 21:07 79 18 93/67 L 94 11/05/19 20:45 19 96 11/05/19 20:00 16 95 11/05/19 19:40 36.4 C L 78 16 101/63 97 11/05/19 18:45 18 94 11/05/19 17:36 16 97 11/05/19 17:32 36.7 C 92 H 21 103/61 95 11/05/19 16:40 36.2 C L 92 H 22 94/64 L 95 11/05/19 15:49 36.2 C L 94 H 20 121/74 93 11/05/19 15:32 36.5 C 95 H 24 135/73 92 11/05/19 15:10 94 H 20 117/77 93 11/05/19 14:20 36.9 C 88 17 90/47 L 92 11/05/19 14:10 83 13 97/51 L 90 11/05/19 14:00 81 16 82/46 L 92 11/05/19 13:48 82 16 83/42 L 92 11/05/19 13:40 85 16 100/44 L 87 L 11/05/19 13:30 83 16 95/49 L 89 L 11/05/19 13:20 84 20 95/46 L 91 11/05/19 13:10 84 16 86/53 L 99 11/05/19 13:00 80 16 104/65 99 11/05/19 12:50 84 16 109/58 L 99 11/05/19 12:40 82 18 80/61 L 99 11/05/19 12:30 82 22 93/72 L 98 11/05/19 12:20 88 24 90/63 L 96 11/05/19 12:10 90 22 134/80 96 11/05/19 12:00 91 H 22 110/76 95 11/05/19 11:50 92 H 24 117/92 93 11/05/19 11:49 22 94 11/05/19 11:40 90 26 H 138/99 93 11/05/19 11:30 91 H 30 H 126/97 88 L 11/05/19 11:23 90 28 H 126/89 90 11/05/19 11:19 36.0 C L 94 H 28 H 72/54 L 90 Notes Mental Status: alert / awake / arousable and participated in evaluation Patient Amnestic to Procedure: Yes Nausea / Vomiting: adequately controlled Pain: adequately controlled Airway Patency, RR, SpO2: stable & adequate BP & HR: stable & adequate Hydration State: stable & adequate Neuraxial Anesthesia: was administered and sensory block resolved Anesthetic Complications: no major complications apparent and Pt Satisfied with anesthetic care
[2019-11-06] MEDS: NICOTINE 14 MG/24 HR PATCH TD SCH (08:44)
[2019-11-06] MEDS: MULTIVITAMIN TAB PO SCH (08:45)
[2019-11-06] MEDS: ASCORBIC ACID 500 MG TAB PO SCH ×2 (08:45→17:20)
[2019-11-06] MEDS: PARoxetine HCL 10 MG TAB PO SCH (08:45)
[2019-11-06] MEDS: FERROUS GLUCONATE 324 MG TAB PO SCH ×2 (08:46→17:21)
[2019-11-06] MEDS: DOCUSATE SODIUM 100 MG CAP PO SCH ×2 (08:46→20:13)
[2019-11-06] MEDS: INSULIN ASPART 100 UNITS/ML 3 ML PEN SC SCH ×4 (08:49→21:18)
[2019-11-06] MEDS ORDERED: FUROSEMIDE 40 MG TAB PO SCH (09:00)
[2019-11-06] MEDS ORDERED: POTASSIUM CHLORIDE 20 MEQ TABCR PO SCH (09:00)
[2019-11-06] MEDS: TAPENTADOL HCL ER 50 MG TABCR PO SCH ×2 (09:04→20:13)
--- NOTE | 2019-11-06 09:48 | XRay Report ---
XR chest 1V portable CLINICAL HISTORY: hypoxia COMPARISON STUDY: 11/05/2019 FINDINGS: The cardiac and mediastinal contours remain stable. The heart is borderline enlarged. There is slight improvement in interstitial thickening suggesting improving interstitial pulmonary edema. There is no lobar consolidation. Surgical clips project over the left axillary region.[ IMPRESSION: 1. Improving congestive failure/fluid overload. No evidence of lobar consolidation ACT 112: Negative or not required by law. Electronically signed by: Kirill Mujica M.D. 11/06/2019 9:46 AM
--- NOTE | 2019-11-06 12:35 | Hospitalist Consultation ---
Date of Consultation November 06, 2019 Assessment & Plan (1) Acute kidney injury: Cr up to 2.2 from baseline of 1.0 had decreased UO over night, now better after 2.5 liters total of boluses and maintenance fluids hold Losartan, hold Lasix, hold Toradol keep espana to monitor UO repeat BMP this afternoon at 1400, if K is going up will need to move to PCU most likely this is hypotension mediated OZIEL, compounded by Toradol and Losartan/Lasix (2) Elevated lactic acid level: elevated at 3, repeat at 1400 due to hypotension patient is oriented, accurate historian, just feels lethargic (3) Hypotension: all blood pressure medications held this morning including Coreg, Losartan, Lasix no signs of significant anemia calcium is low which could be causing poor contractility, will replace now mentating clearly, unsure how accurate blood pressure readings are (4) Hypocalcemia: Ca is 6.9, prior levels have all been normal related to surgery? she has metastatic breast cancer, on Xgeva will give 2000mg IV now check calcium again at 1400 (5) Lethargy: accurate historian, oriented, just sleepy could be due to elevated Cr, low calcium, low blood pressure (6) Chronic systolic CHF (congestive heart failure), NYHA class 1: most recent echo from 2019 shows that EF is now normal at 65% can handle volume normal EKG, troponin negative hold Coreg and Lasix due to hypotension (7) Breast cancer: (8) Lesion of femur: s/p hybrid left hip arthoplasty management per Dr. Trent (9) Malignant neoplasm of breast metastatic to bone: (10) Benign positional vertigo: History of Present Illness Reason for Consultation: Hypotension, decreased UO, elevated Cr Requesting Physician: Dr. Trent Attending Physician: Fercho Trent MD History of Present Illness 63 yo female with history of metastatic breast cancer with recent finding of left femoral neck lesion. Patient never had left hip pain, the lesion was found incidentally on bone scan in July. She followed up with Dr. Trent, she had an x-ray that only showed some arthritis. Follow up MRI showed a lesion in left femoral neck. She discussed options with Dr. Trent, could wait until she had pain, could wait until she had a fracture or could proceed with hip replacement. Patient had hybrid left total hip arthroplasty with Dr Trent, post op day one. She was doing well last night and she had not complaints. She ate well, no chest pain, no dyspnea, no fever/chills. The left hip had no severe pain. Over night she had some low blood pressure readings and decreased UO from her espana. She had a 500mL bolus of NSS and then two separate 1000mL boluses. Her UO picked up. Her Cr this morning was elevated at 2.2, baseline is 1.0. K was high normal at 5.1. Blood pressures were 90-100 systolic, difficult to get accurate readings as she has history of bilateral mastectomies and needs to have pressure taken in her forearm. discussed with RN, she held all of her blood pressure medications this morning including Coreg, Lasix, Losartan. She still received gabapentin and Toradol. She is also requiring 4L via oxymask for oxygen saturations > 90%, but now saturations are near 100%. She denies any shortness of breath. She was up in a chair this morning with therapy, it causes some pain in her left hip but she was able to stand and pivot and get back in bed. She did not have any light headedness when sitting or standing. CXR this morning was clear. EKG without ischemic changes. Troponin negative. Lactic acid was high at 3. Allergies Allergy/AdvReac Type Severity Reaction Status Date / Time aspirin Allergy Mild hives Verified 11/05/19 07:28 ibuprofen Allergy Mild hives Verified 11/05/19 07:28 tamoxifen Allergy Unknown temporary Verified 11/05/19 07:28 left eye vision loss Home Medications Home Medications Medication Instructions Recorded Confirmed Type acetaminophen [Tylenol Extra 500 - 1,500 mg PO Q6H PRN 05/06/18 11/05/19 History Strength] denosumab 120 mg/1.7 mL (70 mg/mL) 120 mg SQ MONTHLY ml 04/21/19 10/08/19 History subcutaneous solution fulvestrant 125 mg/2.5 mL 500 mg IM MONTHLY 04/21/19 11/05/19 History intramuscular syringe palbociclib 125 mg capsule 125 mg PO .COMPLEX 04/21/19 11/05/19 History gabapentin 300 mg capsule 300 mg PO .COMPLEX #360 cap 08/19/19 11/05/19 Rx metformin 1,000 mg tablet 1,000 mg PO BID #180 tab 08/19/19 11/05/19 Rx ondansetron HCl 4 mg tablet 4 mg PO Q6H PRN #90 tab 08/19/19 10/08/19 Rx lorazepam 0.5 mg tablet 0.5 mg PO BID PRN #60 tab 08/20/19 11/05/19 Rx carvedilol 25 mg tablet 25 mg PO BID #180 tab 10/01/19 11/05/19 Rx furosemide 40 mg tablet 40 mg PO QAM #90 tab 10/01/19 11/05/19 Rx losartan 25 mg tablet 25 mg PO BID #180 tab 10/01/19 11/05/19 Rx potassium chloride 20 mEq 20 meq PO QAM #90 tab 10/01/19 11/05/19 Rx tablet,extended release meclizine 25 mg tablet 25 mg PO TID #90 tab 10/17/19 11/05/19 Rx denosumab [Xgeva] 120 mg SUBCUT 11/05/19 History paroxetine HCl [Paxil] 30 mg PO QAM 11/05/19 11/05/19 History Patient History Medical History Anxiety Benign hypertension Benign positional vertigo Cardiomyopathy Chronic systolic CHF (congestive heart failure), NYHA class [address] 2017 (after diverticular perforation complications) Depression Diverticular disease DM type 2 (diabetes mellitus, type 2) NIDDM Hyperlipidemia Lumbar disc herniation with radiculopathy LV dysfunction Metastatic breast cancer h/o bl mastectomy, chemo 20 years ago upon initial diagnosis of breast CA; evidence of bone mets per imaging beginning of 2019- no limb restrictions Morbid obesity PAC (premature atrial contraction) h/o PVC (premature ventricular contraction) h/o Surgical History H/O bilateral mastectomy History of cardiac cath 2017 - [place] - cardiomyopathy - no stents/angioplasty History of hysterectomy History of intestinal surgery History of lumbar laminectomy History of surgery for malignant neoplasm 2017 removal of substernal mass + radiation Family History Mother Breast cancer Sister Breast cancer Father Myocardial infarction Prostate cancer Other Cancer Heart disease Hypertension Denies family history of Ovarian cancer Colorectal cancer Social History Smoking Status: Current every day smoker Cigarettes Per Day: 1/2 ppd x 30 years; Second Hand Exposure: No; Do You Dip or Chew Tobacco: No; Tobacco Cessation Education Requested by Patient: No Hx Alcohol Use: Yes Hx Substance Use: No Preferred Language: Upper Sorbian Communication Ability: Effective Rcp Required: No Beliefs That Will Affect Care: None marital status: Single Current Living Situation: Alone current occupational status: employed Feels Safe at Home: Yes Safety Concerns: Feels Safe At This Time Assistive Devices: Glasses and Oxygen - Continuous Assistive Devices Comment: lower partial Review of Systems Review of Systems: All systems reviewed & are unremarkable except as noted in HPI & below Constitutional: + fatigue and + weakness; no fever, no chills and no sweats Respiratory: no cough and no dyspnea Cardiovascular: no chest pain, no palpitations, no syncope and no edema Gastrointestinal: no abdominal pain, no early satiety, no nausea, no vomiting, no constipation, no diarrhea/loose stools and no melena Musculoskeletal: + joint pain (hip pain) Neurologic: no headache(s) and no confusion Physical Exam Constitutional: well developed, + obese and + lethargic; no acute distress Eyes: PERRL, conjunctivae normal, anicteric sclerae ENMT: external ear and nose normal, oropharynx normal Neck: trachea midline, no thyromegaly Respiratory: normal respiratory effort, lungs clear to auscultation Auscultation: + diminished lung sounds (bases) Cardiovascular: RRR, no murmur, no edema Gastrointestinal (Abdomen): normal bowel sounds, soft, nontender, no hepatosplenomegaly (ostomy LLQ) Musculoskeletal: no cyanosis or clubbing, extremities motor strength 5/5 Skin: no rashes, warm and dry Neurologic: normal touch/pain/proprioception, CN's II-XI intact bilaterally, deep tendon reflexes 2+ bilaterally, moves all extremities and awake (sleepy but wakes up appropriately) Psychiatric: Orientation: alert and oriented x 3 Lymphatic: no cervical or axillary lymphadenopathy Results & Data Results & Data ([facility]) Vital Signs (Past 12 Hours) Vital Signs Temp Pulse Resp BP BP Pulse Ox 11/06/19 11:50 72/48 L 11/06/19 11:15 36.5 C 83 18 100 11/06/19 07:36 100 11/06/19 07:34 36.6 C 81 22 115/61 70 L 11/06/19 03:46 36.5 C 78 20 91/54 L 95 11/06/19 02:27 18 102/61 96 11/06/19 00:53 14 91 Laboratory Results Laboratory Results - last 24 hr 11/05/19 11/05/19 11/06/19 17:17 20:45 05:37 WBC 4.95 RBC 3.45 L Hgb 11.9 L Hct 38.2 MCV 110.7 H MCH 34.5 H MCHC 31.2 L RDW Std Deviation 56.8 H RDW Coeff of [place] 14.1 Plt Count 220 MPV 10.1 Immature Gran % (Auto) 0.6 Neut % (Auto) 77.6 Lymph % (Auto) 17.0 [place] % (Auto) 2.2 Eos % (Auto) 2.4 Baso % (Auto) 0.2 Neut # (Auto) 3.84 Lymph # (Auto) 0.84 L [place] # (Auto) 0.11 Eos # (Auto) 0.12 Baso # (Auto) 0.01 Immature Gran # (Auto) 0.03 H Macrocytosis Present Sodium Potassium Chloride Carbon Dioxide Anion Gap BUN Creatinine Est Cr Clr Drug Dosing Est GFR ( Amer) Est GFR (Non-Af Amer) BUN/Creatinine Ratio Glucose POC Glucose 139 H 131 H Lactate Calcium Troponin I 11/06/19 11/06/19 11/06/19 05:37 08:06 08:10 WBC RBC Hgb Hct MCV MCH MCHC RDW Std Deviation RDW Coeff of [place] Plt Count MPV Immature Gran % (Auto) Neut % (Auto) Lymph % (Auto) [place] % (Auto) Eos % (Auto) Baso % (Auto) Neut # (Auto) Lymph # (Auto) [place] # (Auto) Eos # (Auto) Baso # (Auto) Immature Gran # (Auto) Macrocytosis Sodium 137 Potassium 5.1 Chloride 108 H Carbon Dioxide 21 Anion Gap 8.0 BUN 18 Creatinine 2.23 H Est Cr Clr Drug Dosing 32.2 Est GFR ( Amer) 26.1 Est GFR (Non-Af Amer) 22.6 BUN/Creatinine Ratio 8.0 L Glucose 127 H POC Glucose 162 H Lactate Calcium 6.9 L Troponin I < 0.015 11/06/19 11/06/19 08:12 12:27 WBC RBC Hgb Hct MCV MCH MCHC RDW Std Deviation RDW Coeff of [place] Plt Count MPV Immature Gran % (Auto) Neut % (Auto) Lymph % (Auto) [place] % (Auto) Eos % (Auto) Baso % (Auto) Neut # (Auto) Lymph # (Auto) [place] # (Auto) Eos # (Auto) Baso # (Auto) Immature Gran # (Auto) Macrocytosis Sodium Potassium Chloride Carbon Dioxide Anion Gap BUN Creatinine Est Cr Clr Drug Dosing Est GFR ( Amer) Est GFR (Non-Af Amer) BUN/Creatinine Ratio Glucose POC Glucose 132 H Lactate 3.2 H* Calcium Troponin I Diagnostic Findings XR chest 1V portable CLINICAL HISTORY: hypoxia COMPARISON STUDY: 11/05/2019 FINDINGS: The cardiac and mediastinal contours remain stable. The heart is borderline enlarged. There is slight improvement in interstitial thickening suggesting improving interstitial pulmonary edema. There is no lobar consolidation. Surgical clips project over the left axillary region.[ IMPRESSION: 1. Improving congestive failure/fluid overload. No evidence of lobar consolidation Medications Administered Current Inpatient Medications Al Hydrox/Mg Hydrox/Simethicone (Aluminum/Magnesium Susp 30 Ml Udc) 15 ml PO Q4H PRN PRN Reason: Heartburn Stop: 12/05/19 15:01 Ascorbic Acid (Ascorbic Acid 500 Mg Tab) 500 mg PO BIDM TUNDE Stop: 12/05/19 16:59 Last Admin: 11/06/19 08:45 Dose: 500 mg Documented by: Bisacodyl (Bisacodyl 10 Mg Supp) 10 mg [place] DAILY PRN PRN Reason: Constipation Stop: 12/05/19 15:01 Dextrose (Dextrose 50% 50 Ml Syringe) 25 - 50 ml IV UD PRN; Protocol PRN Reason: Hypoglycemia Protocol Stop: 12/05/19 15:01 Docusate Sodium (Docusate Sodium 100 Mg Cap) 100 mg PO BID TUNDE Stop: 12/05/19 20:59 Last Admin: 11/06/19 08:46 Dose: 100 mg Documented by: Ferrous Gluconate (Ferrous Gluconate 324 Mg Tab) 324 mg PO BIDM TUNDE Stop: 12/05/19 16:59 Last Admin: 11/06/19 08:46 Dose: 324 mg Documented by: Glucagon (Glucagon For Inj 1 Mg Vial) 1 mg SQ UD PRN; Protocol PRN Reason: Hypoglycemia Protocol Stop: 12/05/19 15:01 Glucose (Glucose 10 Tabs/Tube) 4 - 8 tabs PO UD PRN; Protocol PRN Reason: Hypoglycemia Protocol Stop: 12/05/19 15:01 Glucose (Glucose 40% Gel 15 Gm Tube) 15 - 30 gm PO UD PRN; Protocol PRN Reason: Hypoglycemia Protocol Stop: 12/05/19 15:01 Hydromorphone HCl (Hydromorphone Inj 0.5 Mg/0.5 Ml Syr) 0.5 mg IV Q4H PRN PRN Reason: Pain or Pre PT Stop: 11/19/19 15:01 Sodium Chloride (Nss 1000ml) 1,000 mls @ 80 mls/hr IV .[id number] TUNDE Stop: 12/06/19 07:59 Last Infusion: 11/06/19 11:54 Dose: 0 mls/hr Documented by: Insulin Aspart (Insulin Aspart 100 Units/Ml 3 Ml Pen) 0 units SC ACHS [facility] Stop: 12/05/19 16:29 Last Admin: 11/06/19 08:49 Dose: 6 units Documented by: Lorazepam (Lorazepam 0.5 Mg Tab) 0.5 mg PO BID PRN PRN Reason: anxiety Stop: 12/05/19 15:01 Magnesium Hydroxide (Magnesium Hydroxide Susp 30 Ml Udc) 30 ml PO Q6H PRN PRN Reason: Constipation Stop: 12/05/19 15:01 Meclizine HCl (Meclizine Hcl 25 Mg Tab) 25 mg PO TID PRN PRN Reason: DIZZINESS Stop: 12/05/19 20:59 Metoclopramide HCl (Metoclopramide Hcl Inj 5 Mg/Ml 2 Ml Vial) 10 mg IV Q6H PRN PRN Reason: Nausea And Vomiting Stop: 12/05/19 15:01 Miscellaneous (Scopolamine Check Patch Placement) 1 ea N/A QS [facility] Stop: 11/08/19 07:59 Last Admin: 11/06/19 08:46 Dose: 1 ea Documented by: Miscellaneous (Scopolamine Remove Transderm Patch) 1 ea N/A ONE ONE Stop: 11/08/19 08:01 Miscellaneous (Carbohydrates For Hypoglycemia ) 15 - 30 gm PO UD PRN PRN Reason: Hypoglycemia Protocol Stop: 12/05/19 15:01 Miscellaneous (Remove Nicoderm Patch) 1 ea N/A DAILY@0859 [facility] Stop: 12/05/19 15:29 Last Admin: 11/06/19 08:47 Dose: Not Given Documented by: Miscellaneous Information (Pharmacy Glycemic Mgmt Consult) 1 ea N/A UD PRN PRN Reason: Consult Stop: 12/05/19 15:20 Multivitamins (Multivitamin Tab) 1 tab PO [facility] Stop: 12/06/19 08:59 Last Admin: 11/06/19 08:45 Dose: 1 tab Documented by: Naloxone HCl (Naloxone Hcl 0.4 Mg/1 Ml Vial/Carp) 0.1 mg IV Q5M PRN PRN Reason: Oversedation/Resp Depression Stop: 12/05/19 15:01 Nicotine (Nicotine 14 Mg/24 Hr Patch) 14 mg TD [facility] Stop: 12/06/19 08:59 Last Admin: 11/06/19 08:44 Dose: Not Given Documented by: Ondansetron HCl (Ondansetron 4 Mg Od Tab) 4 mg PO Q6H PRN PRN Reason: nausea and vomiting Stop: 12/05/19 15:12 Ondansetron HCl (Ondansetron Inj 2 Mg/Ml 2 Ml Vial) 4 mg IV Q6H PRN PRN Reason: Nausea And Vomiting Stop: 12/05/19 15:01 Oxycodone HCl (Oxycodone Hcl Ir 5 Mg Tab (Immediate Release)) 5 - 10 mg PO Q6H PRN PRN Reason: Pain or Pre PT Stop: 11/19/19 15:01 Palbociclib (Palbociclib) 1 ea PO DAILY@0730 [facility] Stop: 12/07/19 07:29 Paroxetine HCl (Paroxetine Hcl 10 Mg Tab) [facility] [place] Stop: 12/06/19 08:59 Last Admin: 11/06/19 08:45 Dose: Not Given Documented by: Rivaroxaban (Rivaroxaban 10 Mg Tablet) 10 mg PO DAILY [facility] Stop: 12/06/19 11:59 Sennosides (Senna 8.6 Mg Tab) 17.2 mg PO HS [facility] Stop: 12/05/19 20:59 Last Admin: 11/05/19 21:11 Dose: Not Given Documented by: Tapentadol (Tapentadol Hcl Er 50 Mg Tabcr) 50 mg PO Q12 TUNDE Stop: 11/19/19 20:59 Last Admin: 11/06/19 09:04 Dose: 50 mg Documented by: ECG Indication: weakness Rhythm: normal sinus Findings: no PVC, no ST depression and no ST elevation PG Care Time/CCT Total # of Minutes Spent Total Time Spent with Patient: Total time spent is greater than 50% in coordination of care (as documented) at patient's floor/unit and/or counseling patient: Coding Level of Care Code 68535 Inpt Consult Level 4 Diagnoses Acute kidney injury N17.9 Elevated lactic acid level R79.89 Hypotension I95.9 Hypocalcemia E83.51 Lethargy R53.83 Chronic systolic CHF (congestive heart failure), NYHA class 1 I50.22 Breast cancer C50.919 Lesion of femur M89.9 Malignant neoplasm of breast metastatic to bone C50.919; C79.51 Benign positional vertigo H81.10
--- NOTE | 2019-11-06 12:39 | Pharmacy Report ---
Glycemic Control Progress Note - Date of Service November 06, 2019 - Scope Glycemic Pharmacist consulted for glycemic control to write orders per [facility] inpatient glycemic control protocol. - Objective Accuchecks BSG(last 24 hours):: 11/05/19 11/05/19 11/06/19 17:17 20:45 05:37 Glucose 127 H POC Glucose 139 H 131 H 11/06/19 11/06/19 08:10 12:27 Glucose POC Glucose 162 H 132 H - Recent Pertinent Medications The patient is currently receiving: * Basal insulin: Lantus 20 units every 24 hours (if BSG > 160 mg/dL) * Correctional Insulin: Novolog Correction per scale ACHS Goal Range: Low 110 mg/dL - High 140 mg/dL Correction Factor: 20 mg/dL/unit * Prandial insulin: Per carb ratio of 1 unit per 7 grams CHO consumed - Outpatient Anti-Diabetic Meds metformin 1000 mg BID - Assessment & Plan ASSESSMENT: * Ms Ojeda is a 63 y/o F with a PMH of T2DM well controlled on one oral medication who presented yesterday for a L hip replacement. * Pt receiving SQ basal bolus insulin regimen for hyperglycemia secondary to baseline DM (outpatient regimen on hold). * Patient received no insulin yesterday. BSGs yesterday were 180 mg/dL (on presentation to OR) - 139 mg/dL- 131 mg/dL. Fasting this morning was 162 mg/dL. * Changes needed to insulin regimen: * AM Fasting BSG = 162 mg/dl. This is slightly above goal range for patient based on inpatient targets and co-morbidities. Patient appears to have elevated fasting BSGs (based on last two days) but then trends down throughout the day. Will continue to hold basal insulin especially in light of kidney dysfunction. * Post-prandial BSGs are in range --- will loosen parameters due to kidney injury. * Total daily dose = <10 units. * Additional notes / comments: Hold metformin until kidney injury resolves. PLAN FOR INPATIENT GLYCEMIC CONTROL: * Continuing correction factor of 20 mg/dl/unit * Continuing carb ratio of 1 unit per 7 grams CHO consumed * Continuing goal range of Low 110 mg/dL - High 140 mg/dL RECOMMENDATIONS FOR DISCHARGE: * Patient's HbA1C well controlled. Recommend continuing regimen at home as long as kidney function returns to normal. Thank you.
[2019-11-06] MEDS: RIVAROXABAN 10 MG TABLET PO SCH (13:07)
[2019-11-06] MEDS ORDERED: CALCIUM GLUCONATE 10% 2,000 MG in SODIUM CHLORIDE 0.9% 50 ML IV ONE (13:15)
[2019-11-06 14:13] LABS: Hematocrit (blood only) 37.2 % (37-47); Hemoglobin 11.9 g/dL (12.0-16.0)
[2019-11-06 14:34] LABS: Calcium 7.9 mg/dl (8.5-10.1); Creatinine Clr Calc Pharmacy 30.5 ml/min; Est GFR (African American) 24.5; Est GFR (Non-African American) 21.2; Potassium 5.1 mmol/L (3.5-5.1)
[2019-11-06] MEDS: SENNA 8.6 MG TAB PO SCH (20:13)
[2019-11-07] MEDS: Scopolamine CHECK PATCH PLACEMENT SCH ×4 (00:48→23:17)
[2019-11-07 05:45] LABS: Hemoglobin 12.4 g/dL (12.0-16.0); Mean Corpuscular Hemoglobin 35.2 pg (25-34); Mean Corpuscular Hgb Conc 32.6 g/dL (32-36); Platelet Count 203 K/uL (130-400); RDW Coefficient of Variation 13.8 % (11.5-14.5); RDW Standard Deviation 54.4 fL (36.4-46.3); Red Blood Count 3.52 M/uL (4.2-5.4); White Blood Count 5.71 K/uL (4.8-10.8)
--- NOTE | 2019-11-07 05:48 | Electrocardiogram Report ---
Test Reason : Blood Pressure : / mmHG Vent. Rate : 082 BPM Atrial Rate : 082 BPM P-R Int : 182 ms QRS Dur : 086 ms QT Int : 394 ms P-R-T Axes : 060 -09 057 degrees QTc Int : 460 ms Normal sinus rhythm Low voltage QRS Cannot rule out Anterior infarct , age undetermined Abnormal ECG When compared with ECG of 16-OCT-2019 13:55, Questionable change in QRS axis Confirmed by James Benitse ([id number]) on 11/07/2019 5:48:44 AM Referred By: Fercho Trent Confirmed By:James Benites
[2019-11-07 06:19] LABS: Calcium 7.2 mg/dl (8.5-10.1); Creatinine Clr Calc Pharmacy 37.9 ml/min; Est GFR (African American) 31.9; Est GFR (Non-African American) 27.6; Magnesium 1.4 mg/dl (1.8-2.4); Potassium 5.1 mmol/L (3.5-5.1)
[2019-11-07] MEDS: PALBOCICLIB PO SCH (07:52)
[2019-11-07] MEDS ORDERED: CALCIUM GLUCONATE 10% 1,000 MG in SODIUM CHLORIDE 0.9% 50 ML IV STA (07:57)
[2019-11-07] MEDS: DOCUSATE SODIUM 100 MG CAP PO SCH ×2 (08:55→20:41)
[2019-11-07] MEDS: MULTIVITAMIN TAB PO SCH (08:55)
[2019-11-07] MEDS: ASCORBIC ACID 500 MG TAB PO SCH ×2 (08:55→17:39)
[2019-11-07] MEDS: PARoxetine HCL 10 MG TAB PO SCH (08:55)
[2019-11-07] MEDS: NICOTINE 14 MG/24 HR PATCH TD SCH (08:55)
[2019-11-07] MEDS: MAGNESIUM SULFATE / D5W 1 GM/100 ML BAG IV SCH ×2 (08:55→11:27)
[2019-11-07] MEDS: RIVAROXABAN 10 MG TABLET PO SCH (08:55)
[2019-11-07] MEDS: FERROUS GLUCONATE 324 MG TAB PO SCH ×2 (08:55→17:39)
[2019-11-07] MEDS: TAPENTADOL HCL ER 50 MG TABCR PO SCH ×2 (08:55→21:45)
[2019-11-07] MEDS: INSULIN ASPART 100 UNITS/ML 3 ML PEN SC SCH ×4 (08:58→20:46)
[2019-11-07] MEDS: ACETAMINOPHEN 500 MG TAB PO PRN ×2 (09:08→17:43)
--- NOTE | 2019-11-07 09:27 | Pharmacy Report ---
Pharmacy Glycemic Short Note 2 - Date of Service November 07, 2019 - Glycemic Short BSG Results (Last 24 hours): 11/06/19 11/06/19 11/06/19 12:27 14:02 17:20 Glucose 137 H POC Glucose 132 H 118 H 11/06/19 11/07/19 11/07/19 20:28 05:30 08:14 Glucose 187 H POC Glucose 155 H 229 H OUTPATIENT ANTIDIABETIC REGIMEN: * Metformin 1,000mg PO BIDM * A1c = 6.3% ASSESSMENT: * 63yo T2DM female with excellent outpatient control per recent A1c. * Pt is maintained on oral antidiabetic agent {metformin} as an outpatient. Metformin on hold for OZIEL and using SQ basal bolus insulin regimen which is the recommended regimen for inpatient glycemic control. * Pt has received 10 units of insulin over the past 24hrs * 0 units of basal * 10 units of bolus {novoLog} * BSGs [phone] mg/dl * AM fasting BSG trending upwards; yesterday 162 --> 229 today. Will start low dose weight based basal insulin dose and titrate based on AM fasting BSG trend * Post-prandial BSGs were in goal range yesterday; no changes needed to CF/CR PLAN FOR INPATIENT GLYCEMIC CONTROL: * Hold outpatient oral diabetes medications (metformin) * Basal insulin * Lantus 25 units (~ 0.2 units/kg) SQ x 1 dose this AM. Will titrate dosing tomorrow based on AM fasting * Bolus insulin * NovoLog per scale ACHS or Q6hrs while NPO * Goal Range: Low 110 mg/dL - High 140 mg/dL * Correction Factor: 25 mg/dL/unit * Nutritional / Prandial insulin per carb ratio of 1 unit per 8 grams CHO consumed PLAN FOR DISCHARGE: * A1c = 6.3% on 10/09/19 * Goal A1c < 7% based on age/co-morbidities * Metformin is the standard of care in T2DM. Metformin is effective and safe, is inexpensive, and may reduce risk of cardiovascular events and . 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 Otherwise may consider alternate oral agent such as a SGLT2 vs DPP-4 based on CrCl * Support Patient Self-Management * Healthy Lifestyle (diet, exercise, and smoking cessation) * Disease self-management (SMBG) * Prevention of complications (BP, Lipid goals, Immunizations) * Consider outpatient Diabetes Self-Management Education & Support
[2019-11-07] MEDS ORDERED: INSULIN GLARGINE SOLOSTAR 100 UNITS/ML 3 ML PEN SC ONE (09:30)
[2019-11-07] MEDS: carvediloL 25 MG TAB PO SCH ×2 (10:06→20:41)
--- NOTE | 2019-11-07 13:23 | Progress Notes ---
DATE: 11/07/2019 SUBJECTIVE: A 63-year-old female postop day #2 from a left hybrid total hip arthroplasty done for impending fracture. She is doing pretty well, a little bit more pain today. Denies any significant chest pain or shortness of breath. Not feeling dizzy or lightheaded. OBJECTIVE: VITAL SIGNS: Temperature 37.0. Vital signs stable. GENERAL: Shows a pleasant, middle-aged female. She is sitting up in bed, looks reasonably comfortable. EXTREMITIES: Examination of the left hip and leg reveals the leg to be well aligned. Her Prevena wound VAC is in place. She can dorsiflex and plantarflex her foot appropriately. She is neurologically intact. LABORATORY DATA: Hemoglobin is 12.4, hematocrit 38.0. Electrolytes are stable and improved. Creatinine is improved at 1.89. ASSESSMENT: A 63-year-old female postoperative day #2 from a hybrid total hip arthroplasty done for impending fracture, doing pretty well. Her creatinine was elevated, but improving significantly. No chest pain or shortness of breath, but having a little bit more leg pain, which is not unexpected. She is neurologically intact. PLAN: 1. DVT prophylaxis including thigh-high TEDs, SCDs, and Xarelto at a prophylactic dose for 1 month. 2. PT/OT. She can weightbear as tolerated on the left leg. 3. Pain control, doing okay with current pain regimen. 4. Medical management as per the medicine service. Her creatinine is improved and I anticipate it will continue. We will encourage p.o. intake. 5. Disposition: She is hoping to be discharged today. We will discharge to home with some home health as long as it is okay with the medicine service.
--- NOTE | 2019-11-07 14:38 | Hospitalist Progress Note ---
Date of Service November 07, 2019 Assessment & Plan (1) Acute kidney injury: Cr peaked at 2.3 on 11/05 most likely this is hypotension mediated OZIEL, compounded by Toradol and Losartan/Lasix Cr improving to 1.89 today with increase UO after aggressive IV fluids yesterday, stop fluids discontinue espana K is 5.1, Mag low at 1.4, will replace Ca low at 7.2, will give IV calcium repeat BMP in the morning, continue to hold losartan and Lasix (2) Elevated lactic acid level: elevated at 3, repeat level down to 1.4 on 11/05 due to hypotension which was then corrected patient is oriented, accurate historian, just feels lethargic but better today (3) Hypotension: all blood pressure medications held on 11/05 including Coreg, Losartan, Lasix no signs of significant anemia replaced Calcium IV to improve heart contractility BP now elevated today after aggressive IV fluids on 11/05 resume Coreg 25mg BID today continue to hold Losartan due to OZIEL (4) Hypocalcemia: Ca was 6.9 on 11/05, prior levels have all been normal related to surgery? she has metastatic breast cancer, on Xgeva Calcium is 7.2 today, will give additional 1000mg IV of calcium gluconate today (5) Lethargy: accurate historian, oriented, just sleepy could be due to elevated Cr, low calcium, low blood pressure patient and her sister say she has similar reactions to anesthesia in the past patient more alert on 11/06 (6) Chronic systolic CHF (congestive heart failure), NYHA class 1: most recent echo from 2019 shows that EF is now normal at 65% can handle volume normal EKG, troponin negative resume Coreg hold Lasix today, reassess need to resume tomorrow (7) Breast cancer: (8) Lesion of femur: s/p hybrid left hip arthoplasty management per Dr. Trent (9) Malignant neoplasm of breast metastatic to bone: (10) Benign positional vertigo: Admission and Anticipated Discharge Date Admission Date: November 05, 2019 Subjective patient feeling much better today, she is on nasal canula blood pressure actually elevated, will stop IV fluids, can d/c espana as she is making more urine Cr improved to 1.89 from 2.3, K is 5.1, Mag low at 1.4 and Ca low at 7.2 patient is eating well only has pain in the left hip when she moves she asked if she could go home today, discussed that she needs to stay due to elevated Cr, need to check labs tomorrow CM asked to make patient full admission Review of Systems Review of Systems: All systems reviewed & are unremarkable except as noted in Subjective Constitutional: + fatigue and + weakness; no fever Respiratory: no cough and no dyspnea Cardiovascular: no chest pain and no edema Gastrointestinal: no abdominal pain, no nausea, no vomiting and no constipation Musculoskeletal: + joint pain (left hip) Physical Exam Constitutional: well developed, + obese, cooperative and comfortable; no acute distress Eyes: PERRL, conjunctivae normal, anicteric sclerae ENMT: external ear and nose normal, oropharynx normal Neck: trachea midline, no thyromegaly Respiratory: normal respiratory effort, lungs clear to auscultation Auscultation: + diminished lung sounds (bases) Cardiovascular: RRR, no murmur, no edema Gastrointestinal (Abdomen): normal bowel sounds, soft, nontender, no hepatosplenomegaly (ostomy LLQ) Musculoskeletal: no cyanosis or clubbing, extremities motor strength 5/5 Skin: no rashes, warm and dry Neurologic: normal touch/pain/proprioception, CN's II-XI intact bilaterally, deep tendon reflexes 2+ bilaterally, moves all extremities and awake (sleepy but wakes up appropriately) Psychiatric: Orientation: alert and oriented x 3 Lymphatic: no cervical or axillary lymphadenopathy Results & Data Results & Data ([facility]) Vital Signs (Past 12 Hours) Vital Signs Temp Pulse Pulse BP Pulse Ox 11/07/19 13:12 93 11/07/19 07:33 37 C 100 H 99 H 154/66 H 95 Laboratory Results Laboratory Results - last 24 hr 11/06/19 11/06/19 11/06/19 14:02 14:02 17:20 WBC RBC Hgb Hct MCV MCH MCHC RDW Std Deviation RDW Coeff of Bradford Plt Count MPV Sodium 137 Potassium 5.1 Chloride 109 H Carbon Dioxide 21 Anion Gap 7.0 BUN 21 H Creatinine 2.35 H Est Cr Clr Drug Dosing 30.5 Est GFR ( Amer) 24.5 Est GFR (Non-Af Amer) 21.2 BUN/Creatinine Ratio 9.0 L Glucose 137 H POC Glucose 118 H Lactate 1.4 Calcium 7.9 L Magnesium 10/02/2411/07/19 11/07/19 20:28 05:30 05:30 WBC 5.71 RBC 3.52 L Hgb 12.4 Hct 38.0 MCV 108.0 H MCH 35.2 H MCHC 32.6 RDW Std Deviation 54.4 H RDW Coeff of Bradford 13.8 Plt Count 203 MPV 10.0 Sodium 137 Potassium 5.1 Chloride 112 H Carbon Dioxide 21 Anion Gap 4.0 BUN 25 H Creatinine 1.89 H D Est Cr Clr Drug Dosing 37.9 Est GFR ( Amer) 31.9 Est GFR (Non-Af Amer) 27.6 BUN/Creatinine Ratio 13.0 Glucose 187 H POC Glucose 155 H Lactate Calcium 7.2 L Magnesium 1.4 L 11/07/19 11/07/19 08:14 11:57 WBC RBC Hgb Hct MCV MCH MCHC RDW Std Deviation RDW Coeff of Bradford Plt Count MPV Sodium Potassium Chloride Carbon Dioxide Anion Gap BUN Creatinine Est Cr Clr Drug Dosing Est GFR ( Amer) Est GFR (Non-Af Amer) BUN/Creatinine Ratio Glucose POC Glucose 229 H 161 H Lactate Calcium Magnesium Medications Administered Current Inpatient Medications Acetaminophen (Acetaminophen 500 Mg Tab) 1,000 mg PO Q8H PRN PRN Reason: Pain Stop: 12/07/19 08:52 Last Admin: 11/07/19 09:08 Dose: 1,000 mg Documented by: Al Hydrox/Mg Hydrox/Simethicone (Aluminum/Magnesium Susp 30 Ml Udc) 15 ml PO Q4H PRN PRN Reason: Heartburn Stop: 12/05/19 15:01 Ascorbic Acid (Ascorbic Acid 500 Mg Tab) 500 mg PO BIDM TUNDE Stop: 12/05/19 16:59 Last Admin: 11/07/19 08:55 Dose: 500 mg Documented by: Bisacodyl (Bisacodyl 10 Mg Supp) 10 mg CA DAILY PRN PRN Reason: Constipation Stop: 12/05/19 15:01 Carvedilol (Carvedilol 25 Mg Tab) 25 mg PO BID [facility] Stop: 12/07/19 09:44 Last Admin: 11/07/19 10:06 Dose: 25 mg Documented by: Dextrose (Dextrose 50% 50 Ml Syringe) 25 - 50 ml IV UD PRN; Protocol PRN Reason: Hypoglycemia Protocol Stop: 12/05/19 15:01 Docusate Sodium (Docusate Sodium 100 Mg Cap) 100 mg PO BID TUNDE Stop: 12/05/19 20:59 Last Admin: 11/07/19 08:55 Dose: 100 mg Documented by: Ferrous Gluconate (Ferrous Gluconate 324 Mg Tab) 324 mg PO BIDM [facility] Stop: 12/05/19 16:59 Last Admin: 11/07/19 08:55 Dose: 324 mg Documented by: Glucagon (Glucagon For Inj 1 Mg Vial) 1 mg SQ UD PRN; Protocol PRN Reason: Hypoglycemia Protocol Stop: 12/05/19 15:01 Glucose (Glucose 10 Tabs/Tube) 4 - 8 tabs PO UD PRN; Protocol PRN Reason: Hypoglycemia Protocol Stop: 12/05/19 15:01 Glucose (Glucose 40% Gel 15 Gm Tube) 15 - 30 gm PO UD PRN; Protocol PRN Reason: Hypoglycemia Protocol Stop: 12/05/19 15:01 Hydromorphone HCl (Hydromorphone Inj 0.5 Mg/0.5 Ml Syr) 0.5 mg IV Q4H PRN PRN Reason: Pain or Pre PT Stop: 11/19/19 15:01 Insulin Aspart (Insulin Aspart 100 Units/Ml 3 Ml Pen) 0 units SC ACHS [facility] Stop: 12/05/19 16:29 Last Admin: 11/07/19 13:33 Dose: 1 units Documented by: Lorazepam (Lorazepam 0.5 Mg Tab) 0.5 mg PO BID PRN PRN Reason: anxiety Stop: 12/05/19 15:01 Magnesium Hydroxide (Magnesium Hydroxide Susp 30 Ml Udc) 30 ml PO Q6H PRN PRN Reason: Constipation Stop: 12/05/19 15:01 Meclizine HCl (Meclizine Hcl 25 Mg Tab) 25 mg PO TID PRN PRN Reason: DIZZINESS Stop: 12/05/19 20:59 Metoclopramide HCl (Metoclopramide Hcl Inj 5 Mg/Ml 2 Ml Vial) 10 mg IV Q6H PRN PRN Reason: Nausea And Vomiting Stop: 12/05/19 15:01 Miscellaneous (Scopolamine Check Patch Placement) 1 ea N/A QS TUNDE Stop: 11/08/19 07:59 Last Admin: 11/07/19 08:55 Dose: Not Given Documented by: Miscellaneous (Scopolamine Remove Transderm Patch) 1 ea N/A ONE ONE Stop: 11/08/19 08:01 Miscellaneous (Carbohydrates For Hypoglycemia ) 15 - 30 gm PO UD PRN PRN Reason: Hypoglycemia Protocol Stop: 12/05/19 15:01 Miscellaneous (Remove Nicoderm Patch) 1 ea N/A DAILY@0859 [facility] Stop: 12/05/19 15:29 Last Admin: 11/07/19 08:55 Dose: Not Given Documented by: Miscellaneous Information (Pharmacy Glycemic Mgmt Consult) 1 ea N/A UD PRN PRN Reason: Consult Stop: 12/05/19 15:20 Multivitamins (Multivitamin Tab) [facility] Stop: 12/06/19 08:59 Last Admin: 11/07/19 08:55 Dose: 1 tab Documented by: Naloxone HCl (Naloxone Hcl 0.4 Mg/1 Ml Vial/Carp) 0.1 mg IV Q5M PRN PRN Reason: Oversedation/Resp Depression Stop: 12/05/19 15:01 Nicotine (Nicotine 14 Mg/24 Hr Patch) [address] [facility] Stop: 12/06/19 08:59 Last Admin: 11/07/19 08:55 Dose: Not Given Documented by: Ondansetron HCl (Ondansetron 4 Mg Od Tab) 4 mg PO Q6H PRN PRN Reason: nausea and vomiting Stop: 12/05/19 15:12 Ondansetron HCl (Ondansetron Inj 2 Mg/Ml 2 Ml Vial) 4 mg IV Q6H PRN PRN Reason: Nausea And Vomiting Stop: 12/05/19 15:01 Oxycodone HCl (Oxycodone Hcl Ir 5 Mg Tab (Immediate Release)) 5 - 10 mg PO Q6H PRN PRN Reason: Pain or Pre PT Stop: 11/19/19 15:01 Palbociclib (Palbociclib) 1 ea PO DAILY@0730 [facility] Stop: 12/07/19 07:29 Last Admin: 11/07/19 07:52 Dose: Not Given Documented by: Paroxetine HCl (Paroxetine Hcl 10 Mg Tab) 30 [facility] [place] Stop: 12/06/19 08:59 Last Admin: 11/07/19 08:55 Dose: 30 mg Documented by: Rivaroxaban (Rivaroxaban 10 Mg Tablet) 10 mg PO DAILY [facility] Stop: 12/06/19 11:59 Last Admin: 11/07/19 08:55 Dose: 10 mg Documented by: Sennosides (Senna 8.6 Mg Tab) 17.2 mg PO HS TUNDE Stop: 12/05/19 20:59 Last Admin: 11/06/19 20:13 Dose: 17.2 mg Documented by: Tapentadol (Tapentadol Hcl Er 50 Mg Tabcr) 50 mg PO Q12 TUNDE Stop: 11/19/19 20:59 Last Admin: 11/07/19 08:55 Dose: Not Given Documented by: PG Care Time/CCT Total # of Minutes Spent Total Time Spent with Patient: Total time spent is greater than 50% in coordination of care (as documented) at patient's floor/unit and/or counseling patient: Coding Level of Care Code 18020 Subseq Hosp Care Lvl 3 Diagnoses Acute kidney injury N17.9 Elevated lactic acid level R79.89 Hypotension I95.9 Hypocalcemia E83.51 Lethargy R53.83 Chronic systolic CHF (congestive heart failure), NYHA class 1 I50.22 Breast cancer C50.919 Lesion of femur M89.9 Malignant neoplasm of breast metastatic to bone C50.919; C79.51 Benign positional vertigo H81.10
[2019-11-07] MEDS: SENNA 8.6 MG TAB PO SCH (20:41)
[2019-11-08 06:34] LABS: Hematocrit (blood only) 35.8 % (37-47); Hemoglobin 11.6 g/dL (12.0-16.0); Mean Corpuscular Hemoglobin 34.6 pg (25-34); Mean Corpuscular Hgb Conc 32.4 g/dL (32-36); Mean Corpuscular Volume 106.9 fL (80-100); Mean Platelet Volume 10.3 fL (7.4-10.4); Platelet Count 197 K/uL (130-400); RDW Coefficient of Variation 13.7 % (11.5-14.5); RDW Standard Deviation 53.4 fL (36.4-46.3); Red Blood Count 3.35 M/uL (4.2-5.4); White Blood Count 5.18 K/uL (4.8-10.8)
[2019-11-08 06:52] LABS: BUN Creatinine Ratio 17.9 (10-20); Calcium 7.8 mg/dl (8.5-10.1); Creatinine Clr Calc Pharmacy 57.8 ml/min; Est GFR (African American) 53.2; Est GFR (Non-African American) 45.9; Magnesium 2.2 mg/dl (1.8-2.4); Potassium 5.1 mmol/L (3.5-5.1)
[2019-11-08] MEDS ORDERED: INSULIN GLARGINE SOLOSTAR 100 UNITS/ML 3 ML PEN SC SCH (09:00)
--- NOTE | 2019-11-08 09:31 | Progress Notes ---
DATE: 11/08/2019 SUBJECTIVE: A 63-year-old female who is status post a left hip hybrid total hip arthroplasty for impending fracture. She is doing okay. Her pain is controlled, but still just feels a little bit of short of breath. Denies any chest pain. Says she just having a little bit more wheezing than normal. No other real complaints. OBJECTIVE: VITAL SIGNS: Temperature 37.0. Vital signs stable. O2 sats are 92%. GENERAL: Shows a pleasant, middle-aged female. She is sitting up in bed, looks reasonably comfortable. Does not look like she is having difficulty or labored breathing. No obvious wheezing. EXTREMITIES: Examination of left hip reveals the dressing to be clean, dry and intact. Her hip is located. She is neurologically intact. LABORATORY DATA: Hemoglobin is 11.6. Hematocrit 35.8. Electrolytes are stable and continue to improve. Creatinine is down to 1.24. ASSESSMENT: A 63-year-old female postop day 3 from a left hybrid total hip arthroplasty, doing okay. She has got multiple medical comorbidities with underlying heart disease. Still just has a sense of some shortness of breath. Clinically, she looks good and her labs are looking good. PLAN: 1. DVT prophylaxis including thigh-high TEDs, SCDs, and Xarelto as she is at increased risk for thrombosis due to her surgery along with her current breast cancer. 2. PT/OT. She can weightbear as tolerated. 3. Medical management as per the medicine service. 4. Disposition: She is hoping to be discharged to home. She has got multiple medical comorbidities and still just looks like she is struggling a bit. We will keep her in the hospital today and just keep monitoring her creatinine, which is improving. Continue with medical management. Hopeful discharge tomorrow.
[2019-11-08] MEDS: ONDANSETRON INJ 2 MG/ML 2 ML VIAL IV PRN ×2 (09:32→15:21)
[2019-11-08] MEDS: carvediloL 25 MG TAB PO SCH ×2 (09:33→21:35)
[2019-11-08] MEDS: INSULIN ASPART 100 UNITS/ML 3 ML PEN SC SCH ×4 (09:41→21:38)
[2019-11-08] MEDS: PALBOCICLIB PO SCH (09:49)
[2019-11-08] MEDS: RIVAROXABAN 10 MG TABLET PO SCH (09:50)
[2019-11-08] MEDS: PARoxetine HCL 10 MG TAB PO SCH (09:50)
[2019-11-08] MEDS: ASCORBIC ACID 500 MG TAB PO SCH ×2 (09:51→17:34)
--- NOTE | 2019-11-08 13:53 | Pharmacy Report ---
Pharmacy Glycemic Short Note 2 - Date of Service November 08, 2019 - Glycemic Short BSG Results (Last 24 hours): 11/07/19 11/07/19 11/08/19 17:25 20:45 05:55 Glucose 153 H POC Glucose 151 H 170 H 11/08/19 11/08/19 08:01 12:18 Glucose POC Glucose 166 H 156 H OUTPATIENT ANTIDIABETIC REGIMEN: * Metformin 1,000mg PO BIDM * A1c = 6.3% ASSESSMENT: 11/08/19: * Patient received 33 units of insulin yesterday (25 units basal and 8 units of bolus) * Metformin continues to be held for OZIEL. Scr trending downward. I anticipate being able to resume metformin 10 AM. In the meantime, I will continue with basal + bolus regimen. * slightly tighten correction factor for post prandial hyperglycemia * decrease Lantus ~ 30% due to rapid improvement in fasting BSG (229 -> 166 mg/dL after just one dose) 11/07/19: * 63yo T2DM female with excellent outpatient control per recent A1c. * Pt is maintained on oral antidiabetic agent {metformin} as an outpatient. Metformin on hold for OZIEL and using SQ basal bolus insulin regimen which is the recommended regimen for inpatient glycemic control. * Pt has received 10 units of insulin over the past 24hrs * 0 units of basal * 10 units of bolus {novoLog} * BSGs [phone] mg/dl * AM fasting BSG trending upwards; yesterday 162 --> 229 today. Will start low dose weight based basal insulin dose and titrate based on AM fasting BSG trend * Post-prandial BSGs were in goal range yesterday; no changes needed to CF/CR PLAN FOR INPATIENT GLYCEMIC CONTROL: * Hold outpatient oral diabetes medications (metformin) * Basal insulin * Lantus 18 units SQ qAM * Bolus insulin * NovoLog per scale ACHS or Q6hrs while NPO * Goal Range: Low 110 mg/dL - High 140 mg/dL * Correction Factor: 20 mg/dL/unit * Nutritional / Prandial insulin per carb ratio of 1 unit per 8 grams CHO consumed PLAN FOR DISCHARGE: * A1c = 6.3% on 10/09/19 * Goal A1c < 7% based on age/co-morbidities * Metformin is the standard of care in T2DM. Metformin is effective and safe, is inexpensive, and may reduce risk of cardiovascular events and . 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 Otherwise may consider alternate oral agent such as a SGLT2 vs DPP-4 based on CrCl * Support Patient Self-Management * Healthy Lifestyle (diet, exercise, and smoking cessation) * Disease self-management (SMBG) * Prevention of complications (BP, Lipid goals, Immunizations) * Consider outpatient Diabetes Self-Management Education & Support
[2019-11-08] MEDS: MULTIVITAMIN TAB PO SCH (14:44)
[2019-11-08] MEDS: FERROUS GLUCONATE 324 MG TAB PO SCH ×2 (14:44→17:33)
[2019-11-08] MEDS: NICOTINE 14 MG/24 HR PATCH TD SCH (14:44)
[2019-11-08] MEDS: DOCUSATE SODIUM 100 MG CAP PO SCH ×2 (14:44→21:35)
[2019-11-08] MEDS: TAPENTADOL HCL ER 50 MG TABCR PO SCH ×2 (14:45→16:23)
--- NOTE | 2019-11-08 15:43 | Hospitalist Progress Note ---
Date of Service November 08, 2019 Assessment & Plan (1) Acute kidney injury: Cr peaked at 2.3 on 11/05 most likely this is hypotension mediated OZIEL, compounded by Toradol and Losartan/Lasix Cr improving to 1.2 today with increase UO after aggressive IV fluids discontinue espana on 11/06 K is 5.1, Mag is 2.2 Ca low at 7.8 but improved repeat BMP in the morning recommend she resume Losartan 25mg BID and Lasix 40mg daily RN said she refused to take, will re-visit her to see if she will agree (2) Elevated lactic acid level: elevated at 3, repeat level down to 1.4 on 11/05 due to hypotension which was then corrected patient is oriented, accurate historian, just feels lethargic but better today (3) Hypotension: all blood pressure medications held on 11/05 including Coreg, Losartan, Lasix no signs of significant anemia replaced Calcium IV to improve heart contractility BP now elevated resume Coreg 25mg BID on 11/06 continue to hold Losartan due to OZIEL (4) Hypocalcemia: Ca was 6.9 on 11/05, prior levels have all been normal related to surgery? she has metastatic breast cancer, on Xgeva Calcium is 7.8 today, no calcium, will repeat tomorrow (5) Lethargy: accurate historian, oriented, just sleepy could be due to elevated Cr, low calcium, low blood pressure patient and her sister say she has similar reactions to anesthesia in the past patient more alert on 11/06 and 11/07 (6) Chronic systolic CHF (congestive heart failure), NYHA class 1: most recent echo from 2019 shows that EF is now normal at 65% can handle volume normal EKG, troponin negative resume Coreg resume Lasix and Losartan today (7) Breast cancer: (8) Lesion of femur: s/p hybrid left hip arthoplasty management per Dr. Trent (9) Malignant neoplasm of breast metastatic to bone: (10) Benign positional vertigo: Admission and Anticipated Discharge Date Admission Date: November 07, 2019 Subjective patient feels a little more short of breath and more fatigued today she is making urine, her BP is elevated discussed that we should resume her Lasix and Losartan, RN told me she refused to take around noon reviewed labs, Cr improved to 1.24, K 5.1, Hb stable at 11.6, Ca is 7.8 Review of Systems Review of Systems: All systems reviewed & are unremarkable except as noted in Subjective Constitutional: + fatigue and + weakness; no fever Respiratory: + dyspnea and + dyspnea on exertion; no cough Cardiovascular: no chest pain and no edema Musculoskeletal: + joint pain Physical Exam Constitutional: well developed, + obese, cooperative and comfortable; no acute distress Eyes: PERRL, conjunctivae normal, anicteric sclerae ENMT: external ear and nose normal, oropharynx normal Neck: trachea midline, no thyromegaly Respiratory: normal respiratory effort; no respiratory distress and no labored breathing Auscultation: + diminished lung sounds and + rales (bases); no crackles, no rhonchi and no wheezes Cardiovascular: RRR, no murmur, no edema Gastrointestinal (Abdomen): normal bowel sounds, soft, nontender, no hepat osplenomegaly (ostomy LLQ) Musculoskeletal: no cyanosis or clubbing, extremities motor strength 5/5 Skin: no rashes, warm and dry Neurologic: normal touch/pain/proprioception, CN's II-XI intact bilaterally, deep tendon reflexes 2+ bilaterally, moves all extremities and awake; no focal motor deficits Psychiatric: Orientation: alert and oriented x 3 Lymphatic: no cervical or axillary lymphadenopathy Results & Data Results & Data ([facility]) Vital Signs (Past 12 Hours) Vital Signs Temp Pulse Resp BP Pulse Ox 11/08/19 15:13 36.7 C 88 20 125/80 96 11/08/19 08:04 36.9 C 91 H 18 152/83 H 94 Laboratory Results Laboratory Results - last 24 hr 11/07/19 11/07/19 11/08/19 17:25 20:45 05:55 WBC 5.18 RBC 3.35 L Hgb 11.6 L Hct 35.8 L MCV 106.9 H MCH 34.6 H MCHC 32.4 RDW Std Deviation 53.4 H RDW Coeff of Bradford 13.7 Plt Count 197 MPV 10.3 Sodium Potassium Chloride Carbon Dioxide Anion Gap BUN Creatinine Est Cr Clr Drug Dosing Est GFR ( Amer) Est GFR (Non-Af Amer) BUN/Creatinine Ratio Glucose POC Glucose 151 H 170 H Calcium Magnesium 11/08/19 11/08/19 11/08/19 05:55 08:01 12:18 WBC RBC Hgb Hct MCV MCH MCHC RDW Std Deviation RDW Coeff of Bradford Plt Count MPV Sodium 137 Potassium 5.1 Chloride 111 H Carbon Dioxide 22 Anion Gap 4.0 BUN 22 H Creatinine 1.24 H D Est Cr Clr Drug Dosing 57.8 Est GFR ( Amer) 53.2 Est GFR (Non-Af Amer) 45.9 BUN/Creatinine Ratio 17.9 Glucose 153 H POC Glucose 166 H 156 H Calcium 7.8 L Magnesium 2.2 Medications Administered Current Inpatient Medications Acetaminophen (Acetaminophen 500 Mg Tab) 1,000 mg PO Q8H PRN PRN Reason: Pain Stop: 12/07/19 08:52 Last Admin: 11/07/19 17:43 Dose: 1,000 mg Documented by: Al Hydrox/Mg Hydrox/Simethicone (Aluminum/Magnesium Susp 30 Ml Udc) 15 ml PO Q4H PRN PRN Reason: Heartburn Stop: 12/05/19 15:01 Ascorbic Acid (Ascorbic Acid 500 Mg Tab) 500 mg PO BIDM TUNDE Stop: 12/05/19 16:59 Last Admin: 11/08/19 09:51 Dose: 500 mg Documented by: Bisacodyl (Bisacodyl 10 Mg Supp) 10 mg DE DAILY PRN PRN Reason: Constipation Stop: 12/05/19 15:01 Carvedilol (Carvedilol 25 Mg Tab) 25 mg PO BID TUNDE Stop: 12/07/19 09:44 Last Admin: 11/08/19 09:33 Dose: 25 mg Documented by: Dextrose (Dextrose 50% 50 Ml Syringe) 25 - 50 ml IV UD PRN; Protocol PRN Reason: Hypoglycemia Protocol Stop: 12/05/19 15:01 Docusate Sodium (Docusate Sodium 100 Mg Cap) 100 mg PO BID TUNDE Stop: 12/05/19 20:59 Last Admin: 11/08/19 14:44 Dose: Not Given Documented by: Ferrous Gluconate (Ferrous Gluconate 324 Mg Tab) 324 mg PO BIDM [facility] Stop: 12/05/19 16:59 Last Admin: 11/08/19 14:44 Dose: Not Given Documented by: Furosemide (Furosemide 40 Mg Tab) 40 mg PO QAM [facility] Stop: 12/08/19 09:59 Glucagon (Glucagon For Inj 1 Mg Vial) 1 mg SQ UD PRN; Protocol PRN Reason: Hypoglycemia Protocol Stop: 12/05/19 15:01 Glucose (Glucose 10 Tabs/Tube) 4 - 8 tabs PO UD PRN; Protocol PRN Reason: Hypoglycemia Protocol Stop: 12/05/19 15:01 Glucose (Glucose 40% Gel 15 Gm Tube) 15 - 30 gm PO UD PRN; Protocol PRN Reason: Hypoglycemia Protocol Stop: 12/05/19 15:01 Hydromorphone HCl (Hydromorphone Inj 0.5 Mg/0.5 Ml Syr) 0.5 mg IV Q4H PRN PRN Reason: Pain or Pre PT Stop: 11/19/19 15:01 Insulin Aspart (Insulin Aspart 100 Units/Ml 3 Ml Pen) 0 units SC ACHS [facility] Stop: 12/05/19 16:29 Last Admin: 11/08/19 13:20 Dose: 1 units Documented by: Lorazepam (Lorazepam 0.5 Mg Tab) 0.5 mg PO BID PRN PRN Reason: anxiety Stop: 12/05/19 15:01 Losartan Potassium (Losartan Potassium 25 Mg Tab) 25 mg PO BID [facility] Stop: 12/08/19 09:59 Magnesium Hydroxide (Magnesium Hydroxide Susp 30 Ml Udc) 30 ml PO Q6H PRN PRN Reason: Constipation Stop: 12/05/19 15:01 Meclizine HCl (Meclizine Hcl 25 Mg Tab) 25 mg PO TID PRN PRN Reason: DIZZINESS Stop: 12/05/19 20:59 Metoclopramide HCl (Metoclopramide Hcl Inj 5 Mg/Ml 2 Ml Vial) 10 mg IV Q6H PRN PRN Reason: Nausea And Vomiting Stop: 12/05/19 15:01 Miscellaneous (Carbohydrates For Hypoglycemia ) 15 - 30 gm PO UD PRN PRN Reason: Hypoglycemia Protocol Stop: 12/05/19 15:01 Miscellaneous (Remove Nicoderm Patch) 1 ea N/A DAILY@0859 [facility] Stop: 12/05/19 15:29 Last Admin: 11/08/19 14:44 Dose: Not Given Documented by: Miscellaneous Information (Pharmacy Glycemic Mgmt Consult) 1 ea N/A UD PRN PRN Reason: Consult Stop: 12/05/19 15:20 Multivitamins (Multivitamin Tab) 1 tab PO QAM [facility] Stop: 12/06/19 08:59 Last Admin: 11/08/19 14:44 Dose: Not Given Documented by: Naloxone HCl (Naloxone Hcl 0.4 Mg/1 Ml Vial/Carp) 0.1 mg IV Q5M PRN PRN Reason: Oversedation/Resp Depression Stop: 12/05/19 15:01 Nicotine (Nicotine 14 Mg/24 Hr Patch) 14 mg TD QAM [facility] Stop: 12/06/19 08:59 Last Admin: 11/08/19 14:44 Dose: Not Given Documented by: Ondansetron HCl (Ondansetron 4 Mg Od Tab) 4 mg PO Q6H PRN PRN Reason: nausea and vomiting Stop: 12/05/19 15:12 Ondansetron HCl (Ondansetron Inj 2 Mg/Ml 2 Ml Vial) 4 mg IV Q6H PRN PRN Reason: Nausea And Vomiting Stop: 12/05/19 15:01 Last Admin: 11/08/19 15:21 Dose: 4 mg Documented by: Oxycodone HCl (Oxycodone Hcl Ir 5 Mg Tab (Immediate Release)) 5 - 10 mg PO Q6H PRN PRN Reason: Pain or Pre PT Stop: 11/19/19 15:01 Palbociclib (Palbociclib) 1 ea PO DAILY@0730 [facility] Stop: 12/07/19 07:29 Last Admin: 11/08/19 09:49 Dose: Not Given Documented by: Paroxetine HCl (Paroxetine Hcl 10 Mg Tab) 30 mg PO QAM [facility] Stop: 12/06/19 08:59 Last Admin: 11/08/19 09:50 Dose: 30 mg Documented by: Rivaroxaban (Rivaroxaban 10 Mg Tablet) 10 mg PO DAILY [facility] Stop: 12/06/19 11:59 Last Admin: 11/08/19 09:50 Dose: 10 mg Documented by: Sennosides (Senna 8.6 Mg Tab) 17.2 mg PO HS [facility] Stop: 12/05/19 20:59 Last Admin: 11/07/19 20:41 Dose: 17.2 mg Documented by: Tapentadol (Tapentadol Hcl Er 50 Mg Tabcr) 50 mg PO Q12 [facility] Stop: 11/19/19 20:59 Last Admin: 11/08/19 14:45 Dose: Not Given Documented by: PG Care Time/CCT Total # of Minutes Spent Total Time Spent with Patient: Total time spent is greater than 50% in coordination of care (as documented) at patient's floor/unit and/or counseling patient: Coding Level of Care Code 02848 Subseq Hosp Care Lvl 3 Diagnoses Acute kidney injury N17.9 Elevated lactic acid level R79.89 Hypotension I95.9 Hypocalcemia E83.51 Lethargy R53.83 Chronic systolic CHF (congestive heart failure), NYHA class 1 I50.22 Breast cancer C50.919 Lesion of femur M89.9 Malignant neoplasm of breast metastatic to bone C50.919; C79.51 Benign positional vertigo H81.10
[2019-11-08] MEDS: FUROSEMIDE 40 MG TAB PO SCH (16:19)
[2019-11-08] MEDS: LOSARTAN POTASSIUM 25 MG TAB PO SCH ×2 (16:19→21:35)
[2019-11-08] MEDS: ACETAMINOPHEN 500 MG TAB PO PRN (16:23)
[2019-11-08] MEDS: SENNA 8.6 MG TAB PO SCH (21:35)
[2019-11-09] MEDS: OXYCODONE HCL IR 5 MG TAB (IMMEDIATE RELEASE) PO PRN ×2 (02:26→17:41)
[2019-11-09 07:37] LABS: Hematocrit (blood only) 35.2 % (37-47); Hemoglobin 11.4 g/dL (12.0-16.0); Mean Corpuscular Hgb Conc 32.4 g/dL (32-36); Mean Platelet Volume 9.8 fL (7.4-10.4); Platelet Count 226 K/uL (130-400); RDW Coefficient of Variation 13.8 % (11.5-14.5); RDW Standard Deviation 54.1 fL (36.4-46.3); Red Blood Count 3.26 M/uL (4.2-5.4); White Blood Count 3.83 K/uL (4.8-10.8)
[2019-11-09 08:14] LABS: BUN Creatinine Ratio 20.8 (10-20); Calcium 8.1 mg/dl (8.5-10.1); Creatinine Clr Calc Pharmacy 83.4 ml/min; Est GFR (African American) 82.7; Est GFR (Non-African American) 71.4; Magnesium 2.1 mg/dl (1.8-2.4); Potassium 4.7 mmol/L (3.5-5.1)
[2019-11-09] MEDS: ONDANSETRON INJ 2 MG/ML 2 ML VIAL IV PRN (08:31)
[2019-11-09] MEDS: INSULIN ASPART 100 UNITS/ML 3 ML PEN SC SCH ×4 (08:36→21:01)
[2019-11-09] MEDS: PALBOCICLIB PO SCH (08:37)
[2019-11-09] MEDS: LOSARTAN POTASSIUM 25 MG TAB PO SCH ×2 (08:39→20:30)
[2019-11-09] MEDS: TAPENTADOL HCL ER 50 MG TABCR PO SCH ×2 (08:39→20:30)
[2019-11-09] MEDS: PARoxetine HCL 10 MG TAB PO SCH (08:39)
[2019-11-09] MEDS: DOCUSATE SODIUM 100 MG CAP PO SCH ×2 (08:40→20:30)
[2019-11-09] MEDS: ASCORBIC ACID 500 MG TAB PO SCH ×2 (08:40→17:43)
[2019-11-09] MEDS: MULTIVITAMIN TAB PO SCH (08:40)
[2019-11-09] MEDS: RIVAROXABAN 10 MG TABLET PO SCH (08:40)
[2019-11-09] MEDS: carvediloL 25 MG TAB PO SCH ×2 (08:40→20:33)
[2019-11-09] MEDS: FERROUS GLUCONATE 324 MG TAB PO SCH ×2 (08:40→17:43)
[2019-11-09] MEDS: NICOTINE 14 MG/24 HR PATCH TD SCH (08:40)
[2019-11-09] MEDS: FUROSEMIDE 40 MG TAB PO SCH ×2 (08:41→10:07)
--- NOTE | 2019-11-09 08:46 | Progress Notes ---
DATE: 11/09/2019 SUBJECTIVE: A 63-year-old female status post left hybrid total hip arthroplasty for an impending pathological fracture. She is doing better this morning. Feels better from the shortness of breath standpoint. Pain seems to be controlled. OBJECTIVE: VITAL SIGNS: Temperature is 36.6. Vital signs stable. GENERAL: Reveals a pleasant, middle-aged female. She is lying in bed, looks reasonably comfortable this morning. EXTREMITIES: Examination of the left hip reveals the Prevena VAC to be in place. Leg is well aligned. She can dorsiflex and plantarflex her foot appropriately. She is neurologically intact. LABORATORY DATA: Hemoglobin 11.4. Hematocrit 35.2. Electrolytes are pending. ASSESSMENT: A 63-year-old female status post left hybrid total hip arthroplasty done for fracture, doing better this morning. Her laboratories have looked pretty good for the past 2 days. Creatinine is improved and this morning's laboratories are pending. She feels better. PLAN: 1. DVT prophylaxis including thigh-high TEDs, SCDs, and Xarelto for 30 days. 2. PT/OT. Weight bear as tolerated. Left total hip protocol. 3. Pain control, doing okay with current pain regimen. 4. Medical management as per the medicine service. 5. Disposition: Plan to discharge to home with some home health, hopefully, maybe later today if doing okay medically.
[2019-11-09] MEDS: METFORMIN HCL 500 MG TAB PO SCH ×2 (11:21→17:40)
--- NOTE | 2019-11-09 15:09 | Pharmacy Report ---
Pharmacy Glycemic Short Note 2 - Date of Service November 09, 2019 - Glycemic Short BSG Results (Last 24 hours): 11/08/19 11/08/19 11/09/19 17:12 21:14 07:30 Glucose 135 H POC Glucose 147 H 138 H 11/09/19 11/09/19 08:11 12:22 Glucose POC Glucose 177 H 141 H OUTPATIENT ANTIDIABETIC REGIMEN: * Metformin 1,000mg PO BIDM * A1c = 6.3% ASSESSMENT: 11/09/19: * Yamel received 22 units of insulin yesterday (18 units of basal and 4 units of bolus) with adequate BSG control. * Scr is back to baseline. Will resume metformin and hold off on giving additional basal insulin. * Loosen carb coverage with metformin on board. May be able to remove completely tomorrow. Patient tends to eat minimal carbs. 11/08/19: * Patient received 33 units of insulin yesterday (25 units basal and 8 units of bolus) * Metformin continues to be held for OZIEL. Scr trending downward. I anticipate being able to resume metformin 10 AM. In the meantime, I will continue with basal + bolus regimen. * slightly tighten correction factor for post prandial hyperglycemia * decrease Lantus ~ 30% due to rapid improvement in fasting BSG (229 -> 166 mg/dL after just one dose) 11/07/19: * 63yo T2DM female with excellent outpatient control per recent A1c. * Pt is maintained on oral antidiabetic agent {metformin} as an outpatient. Metformin on hold for OZIEL and using SQ basal bolus insulin regimen which is the recommended regimen for inpatient glycemic control. * Pt has received 10 units of insulin over the past 24hrs * 0 units of basal * 10 units of bolus {novoLog} * BSGs [phone] mg/dl * AM fasting BSG trending upwards; yesterday 162 --> 229 today. Will start low dose weight based basal insulin dose and titrate based on AM fasting BSG trend * Post-prandial BSGs were in goal range yesterday; no changes needed to CF/CR PLAN FOR INPATIENT GLYCEMIC CONTROL: * Resume metformin 1000 mg Po BID with meals * Basal insulin * none * Bolus insulin * NovoLog per scale ACHS or Q6hrs while NPO * Goal Range: Low 110 mg/dL - High 140 mg/dL * Correction Factor: 20 mg/dL/unit * Nutritional / Prandial insulin per carb ratio of 1 unit per 12 grams CHO consumed PLAN FOR DISCHARGE: * A1c = 6.3% on 10/09/19 * Goal A1c < 7% based on age/co-morbidities * Metformin is the standard of care in T2DM. Metformin is effective and safe, is inexpensive, and may reduce risk of cardiovascular events and . * B12 supplementation may be necessary with mcfp metformin use * Reasonable to continue metformin at [place] as long as kidney function returns to baseline. Otherwise may consider alternate oral agent such as a SGLT2 vs DPP-4 based on CrCl * Support Patient Self-Management * Healthy Lifestyle (diet, exercise, and smoking cessation) * Disease self-management (SMBG) * Prevention of complications (BP, Lipid goals, Immunizations) * Consider outpatient Diabetes Self-Management Education & Support
--- NOTE | 2019-11-09 15:55 | Hospitalist Progress Note ---
Date of Service November 09, 2019 Assessment & Plan (1) Acute kidney injury: Cr peaked at 2.3 on 11/05 most likely this was hypotension mediated OZIEL, compounded by Toradol and Losartan/Lasix Cr improving to 0.86 today with increase UO after aggressive IV fluids discontinue espana on 11/06, making urine resume Lasix today as well as Losartan K is 4.7, Mag was normal yesterday Ca 8.1 repeat BMP in the morning CM working on rehab for her which I think is appropriate (2) Elevated lactic acid level: elevated at 3, repeat level down to 1.4 on 11/05 due to hypotension which was then corrected patient is oriented, accurate historian, just feels lethargic at times (3) Hypotension: all blood pressure medications held on 11/05 including Coreg, Losartan, Lasix no signs of significant anemia replaced Calcium IV to improve heart contractility BP was elevated on 11/06 resumed Coreg 25mg BID on 11/06 resume Losartan and Lasix today (4) Hypocalcemia: Ca was 6.9 on 11/05, prior levels have all been normal related to surgery? she has metastatic breast cancer, on Xgeva Calcium is 8.1 today, no calcium gluconate needed, will repeat tomorrow (5) Lethargy: accurate historian, oriented, just sleepy could be due to elevated Cr, low calcium, low blood pressure patient and her sister say she has similar reactions to anesthesia in the past patient more alert on 11/06 and 11/07 (6) Chronic systolic CHF (congestive heart failure), NYHA class 1: most recent echo from 2019 shows that EF is now normal at 65% can handle volume normal EKG, troponin negative resume Coreg resume Lasix and Losartan today (7) Breast cancer: (8) Lesion of femur: s/p hybrid left hip arthoplasty management per Dr. Tretn asked CM to look into rehab options (9) Malignant neoplasm of breast metastatic to bone: (10) Benign positional vertigo: Admission and Anticipated Discharge Date Admission Date: November 07, 2019 Subjective patient feeling weak today, feels more short of breath she did not want to take her Lasix but RN had to convince her she is not eating as well today she is doing okay as far as the hip replacement goes she agrees to consider rehab, will look into options reviewed labs, Cr down to 0.86, electrolytes are stable Hb stable at 11.4, WBC is 3.8 Review of Systems Review of Systems: All systems reviewed & are unremarkable except as noted in Subjective Constitutional: + fatigue and + weakness; no fever Respiratory: + dyspnea and + dyspnea on exertion; no cough and no wheezing Cardiovascular: + dyspnea and + dyspnea on exertion; no chest pain, no chest pain at rest and no edema Gastrointestinal: no abdominal pain, no nausea, no vomiting, no constipation and no diarrhea/loose stools Physical Exam Constitutional: well developed, + obese, cooperative and comfortable; no acute distress Eyes: PERRL, conjunctivae normal, anicteric sclerae ENMT: external ear and nose normal, oropharynx normal Neck: trachea midline, no thyromegaly Respiratory: normal respiratory effort, lungs clear to auscultation normal respiratory effort; no respiratory distress and no labored breathing Auscultation: + diminished lung sounds; no crackles, no rhonchi and no wheezes Cardiovascular: RRR, no murmur, no edema Gastrointestinal (Abdomen): normal bowel sounds, soft, nontender, no hepatosplenomegaly (ostomy LLQ) Musculoskeletal: no cyanosis or clubbing, extremities motor strength 5/5 Skin: no rashes, warm and dry Neurologic: normal touch/pain/proprioception, CN's II-XI intact bilaterally, deep tendon reflexes 2+ bilaterally, moves all extremities and awake; no focal motor deficits Psychiatric: Orientation: alert and oriented x 3 Lymphatic: no cervical or axillary lymphadenopathy Results & Data Results & Data ([facility]) Vital Signs (Past 12 Hours) Vital Signs Temp Pulse Resp BP Pulse Ox 11/09/19 15:30 36.7 C 77 18 104/69 95 Laboratory Results Laboratory Results - last 24 hr 11/09/19 11/09/19 11/09/19 07:30 07:30 08:11 WBC 3.83 L RBC 3.26 L Hgb 11.4 L Hct 35.2 L MCV 108.0 H MCH 35.0 H MCHC 32.4 RDW Std Deviation 54.1 H RDW Coeff of Bradford 13.8 Plt Count 226 MPV 9.8 Sodium 138 Potassium 4.7 Chloride 112 H Carbon Dioxide 23 Anion Gap 4.0 BUN 18 Creatinine 0.86 D Est Cr Clr Drug Dosing 83.4 Est GFR ( Amer) 82.7 Est GFR (Non-Af Amer) 71.4 BUN/Creatinine Ratio 20.8 H Glucose 135 H POC Glucose 177 H Calcium 8.1 L Magnesium 2.1 11/09/19 11/09/19 11/09/19 12:22 17:06 20:19 WBC RBC Hgb Hct MCV MCH MCHC RDW Std Deviation RDW Coeff of Bradford Plt Count MPV Sodium Potassium Chloride Carbon Dioxide Anion Gap BUN Creatinine Est Cr Clr Drug Dosing Est GFR ( Amer) Est GFR (Non-Af Amer) BUN/Creatinine Ratio Glucose POC Glucose 141 H 121 H 124 H Calcium Magnesium Medications Administered Current Inpatient Medications Acetaminophen (Acetaminophen 500 Mg Tab) 1,000 mg PO Q8H PRN PRN Reason: Pain Stop: 12/07/19 08:52 Last Admin: 11/09/19 17:40 Dose: 1,000 mg Documented by: Al Hydrox/Mg Hydrox/Simethicone (Aluminum/Magnesium Susp 30 Ml Udc) 15 ml PO Q4H PRN PRN Reason: Heartburn Stop: 12/05/19 15:01 Ascorbic Acid (Ascorbic Acid 500 Mg Tab) 500 mg PO BIDM [facility] Stop: 12/05/19 16:59 Last Admin: 11/09/19 17:43 Dose: Not Given Documented by: Bisacodyl (Bisacodyl 10 Mg Supp) 10 mg AR DAILY PRN PRN Reason: Constipation Stop: 12/05/19 15:01 Carvedilol (Carvedilol 25 Mg Tab) 25 mg PO BID [facility] Stop: 12/07/19 09:44 Last Admin: 11/09/19 20:33 Dose: Not Given Documented by: Dextrose (Dextrose 50% 50 Ml Syringe) 25 - 50 ml IV UD PRN; Protocol PRN Reason: Hypoglycemia Protocol Stop: 12/05/19 15:01 Docusate Sodium (Docusate Sodium 100 Mg Cap) 100 mg PO BID [facility] Stop: 12/05/19 20:59 Last Admin: 11/09/19 20:30 Dose: 100 mg Documented by: Ferrous Gluconate (Ferrous Gluconate 324 Mg Tab) 324 mg PO BIDM [facility] Stop: 12/05/19 16:59 Last Admin: 11/09/19 17:43 Dose: Not Given Documented by: Furosemide (Furosemide 40 Mg Tab) 40 mg PO QAM [facility] Stop: 12/08/19 09:59 Last Admin: 11/09/19 10:07 Dose: 40 mg Documented by: Glucagon (Glucagon For Inj 1 Mg Vial) 1 mg SQ UD PRN; Protocol PRN Reason: Hypoglycemia Protocol Stop: 12/05/19 15:01 Glucose (Glucose 10 Tabs/Tube) 4 - 8 tabs PO UD PRN; Protocol PRN Reason: Hypoglycemia Protocol Stop: 12/05/19 15:01 Glucose (Glucose 40% Gel 15 Gm Tube) 15 - 30 gm PO UD PRN; Protocol PRN Reason: Hypoglycemia Protocol Stop: 12/05/19 15:01 Hydromorphone HCl (Hydromorphone Inj 0.5 Mg/0.5 Ml Syr) 0.5 mg IV Q4H PRN PRN Reason: Pain or Pre PT Stop: 11/19/19 15:01 Insulin Aspart (Insulin Aspart 100 Units/Ml 3 Ml Pen) 0 units SC ACHS [facility] Stop: 12/05/19 16:29 Last Admin: 11/09/19 21:01 Dose: Not Given Documented by: Lorazepam (Lorazepam 0.5 Mg Tab) 0.5 mg PO BID PRN PRN Reason: anxiety Stop: 12/05/19 15:01 Last Admin: 11/09/19 02:25 Dose: 0.5 mg Documented by: Losartan Potassium (Losartan Potassium 25 Mg Tab) 25 mg PO BID [facility] Stop: 12/08/19 09:59 Last Admin: 11/09/19 20:30 Dose: 25 mg Documented by: Magnesium Hydroxide (Magnesium Hydroxide Susp 30 Ml Udc) 30 ml PO Q6H PRN PRN Reason: Constipation Stop: 12/05/19 15:01 Meclizine HCl (Meclizine Hcl 25 Mg Tab) 25 mg PO TID PRN PRN Reason: DIZZINESS Stop: 12/05/19 20:59 Metformin HCl (Metformin Hcl 500 Mg Tab) 1,000 mg PO BIDM [facility] Stop: 12/09/19 08:59 Last Admin: 11/09/19 17:40 Dose: 1,000 mg Documented by: Metoclopramide HCl (Metoclopramide Hcl Inj 5 Mg/Ml 2 Ml Vial) 10 mg IV Q6H PRN PRN Reason: Nausea And Vomiting Stop: 12/05/19 15:01 Miscellaneous (Carbohydrates For Hypoglycemia ) 15 - 30 gm PO UD PRN PRN Reason: Hypoglycemia Protocol Stop: 12/05/19 15:01 Miscellaneous (Remove Nicoderm Patch) 1 ea N/A DAILY@0859 [facility] Stop: 12/05/19 15:29 Last Admin: 11/09/19 08:40 Dose: Not Given Documented by: Miscellaneous Information (Pharmacy Glycemic Mgmt Consult) 1 ea N/A UD PRN PRN Reason: Consult Stop: 12/05/19 15:20 Multivitamins ([facility]ivitamin Tab) [facility] Stop: 12/06/19 08:59 Last Admin: 11/09/19 08:40 Dose: Not Given Documented by: Naloxone HCl (Naloxone Hcl 0.4 Mg/1 Ml Vial/Carp) 0.1 mg IV Q5M PRN PRN Reason: Oversedation/Resp Depression Stop: 12/05/19 15:01 Nicotine (Nicotine 14 Mg/24 Hr Patch) 14 [facility] Stop: 12/06/19 08:59 Last Admin: 11/09/19 08:40 Dose: Not Given Documented by: Ondansetron HCl (Ondansetron 4 Mg Od Tab) 4 mg PO Q6H PRN PRN Reason: nausea and vomiting Stop: 12/05/19 15:12 Ondansetron HCl (Ondansetron Inj 2 Mg/Ml 2 Ml Vial) 4 mg IV Q6H PRN PRN Reason: Nausea And Vomiting Stop: 12/05/19 15:01 Last Admin: 11/09/19 08:31 Dose: 4 mg Documented by: Oxycodone HCl (Oxycodone Hcl Ir 5 Mg Tab (Immediate Release)) 5 - 10 mg PO Q6H PRN PRN Reason: Pain or Pre PT Stop: 11/19/19 15:01 Last Admin: 11/09/19 17:41 Dose: 5 mg Documented by: Palbociclib (Palbociclib) 1 ea PO DAILY@0730 [facility] Stop: 12/07/19 07:29 Last Admin: 11/09/19 08:37 Dose: 1 ea Documented by: Paroxetine HCl (Paroxetine Hcl 10 Mg Tab) 30 mg PO QAM [facility] Stop: 12/06/19 08:59 Last Admin: 11/09/19 08:39 Dose: 30 mg Documented by: Rivaroxaban (Rivaroxaban 10 Mg Tablet) 10 mg PO DAILY [facility] Stop: 12/06/19 11:59 Last Admin: 11/09/19 08:40 Dose: 10 mg Documented by: Sennosides (Senna 8.6 Mg Tab) 17.2 mg PO HS [facility] Stop: 12/05/19 20:59 Last Admin: 11/09/19 20:35 Dose: Not Given Documented by: Tapentadol (Tapentadol Hcl Er 50 Mg Tabcr) 50 mg PO Q12 [facility] Stop: 11/19/19 20:59 Last Admin: 11/09/19 20:30 Dose: 50 mg Documented by: PG Care Time/CCT Total # of Minutes Spent Total Time Spent with Patient: Total time spent is greater than 50% in coordination of care (as documented) at patient's floor/unit and/or counseling patient: Coding Level of Care Code 66968 Subseq Hosp Care Lvl 3 Diagnoses Acute kidney injury N17.9 Elevated lactic acid level R79.89 Hypotension I95.9 Hypocalcemia E83.51 Lethargy R53.83 Chronic systolic CHF (congestive heart failure), NYHA class 1 I50.22 Breast cancer C50.919 Lesion of femur M89.9 Malignant neoplasm of breast metastatic to bone C50.919; C79.51 Benign positional vertigo H81.10
[2019-11-09] MEDS: ACETAMINOPHEN 500 MG TAB PO PRN (17:40)
[2019-11-09] MEDS: SENNA 8.6 MG TAB PO SCH (20:35)
[2019-11-10 06:06] LABS: Hematocrit (blood only) 38.5 % (37-47); Hemoglobin 11.9 g/dL (12.0-16.0); Mean Corpuscular Hemoglobin 34.2 pg (25-34); Mean Corpuscular Hgb Conc 30.9 g/dL (32-36); Mean Corpuscular Volume 110.6 fL (80-100); Mean Platelet Volume 9.9 fL (7.4-10.4); Platelet Count 274 K/uL (130-400); RDW Standard Deviation 56.2 fL (36.4-46.3); Red Blood Count 3.48 M/uL (4.2-5.4); White Blood Count 3.81 K/uL (4.8-10.8)
[2019-11-10 06:34] LABS: BUN Creatinine Ratio 23.6 (10-20); Calcium 7.3 mg/dl (8.5-10.1); Creatinine Clr Calc Pharmacy 89.6 ml/min; Est GFR (African American) 90.3; Est GFR (Non-African American) 77.9; Potassium 4.5 mmol/L (3.5-5.1)
[2019-11-10] MEDS: METFORMIN HCL 500 MG TAB PO SCH ×2 (07:47→18:10)
[2019-11-10] MEDS: PALBOCICLIB PO SCH (07:47)
[2019-11-10] MEDS: FERROUS GLUCONATE 324 MG TAB PO SCH ×2 (07:48→18:06)
[2019-11-10] MEDS: ASCORBIC ACID 500 MG TAB PO SCH ×2 (07:48→18:06)
[2019-11-10] MEDS ORDERED: CALCIUM GLUCONATE 10% 1,000 MG in SODIUM CHLORIDE 0.9% 50 ML IV STA (08:14)
--- NOTE | 2019-11-10 08:35 | Progress Notes ---
DATE: 11/10/2019 SUBJECTIVE: A 63-year-old white female now 5 days out from a left cemented/hybrid total hip arthroplasty done for an impending pathological femur fracture. She is making some gradual progress. She is feeling better from the shortness of breath standpoint. No chest pain. Still struggling to get around. She is complaining of some rectal type of pain, but has got a colostomy. OBJECTIVE: VITAL SIGNS: Temperature 37.1. Vital signs stable. GENERAL: Physical examination shows a pleasant, middle-aged female. She is lying in bed. Looks pretty comfortable this morning. EXTREMITIES: Examination of the left hip reveals the leg to be well aligned. Dressing is clean, dry, and intact. She can dorsiflex and plantarflex her foot appropriately. She is neurologically intact. LABORATORY DATA: Hemoglobin this morning is 11.9. Hematocrit 38.5. Electrolytes are stable. Creatinine is normal. ASSESSMENT: A 63-year-old white female, 5 days out from a left hybrid total hip arthroplasty done for impending pathological femur fracture. She has got multiple medical comorbidities. Clinically, she looks pretty stable at this point. She is still having quite a bit of trouble getting around safely. She is complaining of a little bit of rectal pain of unclear etiology as she has got a colostomy. PLAN: 1. DVT prophylaxis including thigh-high TEDs, SCDs, and Xarelto for 1 month. 2. PT/OT. She will weightbear as tolerated. 3. Pain control, doing okay with current pain regimen. 4. Medical management as per the medicine service. Her renal function has returned to normal. 5. Disposition: She is now wanting to go to rehab for a possible brief rehab stay. We will get nursing home social worker involved. I certainly think this would be beneficial considering she lives by herself.
[2019-11-10] MEDS: RIVAROXABAN 10 MG TABLET PO SCH (08:56)
[2019-11-10] MEDS: FUROSEMIDE 40 MG TAB PO SCH (08:56)
[2019-11-10] MEDS: PARoxetine HCL 10 MG TAB PO SCH (08:56)
[2019-11-10] MEDS: LOSARTAN POTASSIUM 25 MG TAB PO SCH ×2 (08:57→20:49)
[2019-11-10] MEDS: carvediloL 25 MG TAB PO SCH ×2 (08:57→20:49)
[2019-11-10] MEDS: MULTIVITAMIN TAB PO SCH (08:57)
[2019-11-10] MEDS: TAPENTADOL HCL ER 50 MG TABCR PO SCH ×2 (08:59→20:49)
[2019-11-10] MEDS: INSULIN ASPART 100 UNITS/ML 3 ML PEN SC SCH ×4 (09:03→20:54)
[2019-11-10] MEDS: DOCUSATE SODIUM 100 MG CAP PO SCH ×2 (09:05→20:49)
[2019-11-10] MEDS: NICOTINE 14 MG/24 HR PATCH TD SCH (09:05)
[2019-11-10 09:42] LABS: Folate (Folic Acid) 9.27 ng/ml (>5.38)
--- NOTE | 2019-11-10 13:31 | Hospitalist Progress Note ---
Date of Service November 10, 2019 Assessment & Plan (1) Lesion of femur: Metastatic breast to bone CA * POD #5 LEFT hip arthroplasty with Dr. Trent * PT/OT/pain management/DVT prophylaxis (Xarelto) per primary service * h/h increased and stable at 11.9/38.5 * CM assisting for rehab -- ref sent to [facility] * Awaiting placement -- may need 2 step prior to d/c if still requiring O2 since resuming Lasix. RN to monitor O2 with ambulation this afternoon * *Added Phenergan prn for nausea (2) Shortness of breath: * with exertion -- recently cleared by cardiology. On appropriate medications. Hx smoking, recently quit * Recent ECHO as above, stable * Encouraged use of IS Q1H WA * Ordered mucinex to thin secretions as she feels "junk" stuck * Will obtain CXR in AM if continues (did have lasix resumed) * 99% on 2L NC * Consider 2 step prior to discharge if going home (3) Acute kidney injury: * Cr peaked at 2.3 on 11/05 -- likely hypotension mediated OZIEL in conjunction with Toradol, Losartan, Lasix * Given aggressive IV fluids * Discontinued espana on 11/06 -- UO acceptable * Resumed lasix and losartan * Cr stable at 0.80 today * BMP in AM (4) Elevated lactic acid level: * elevated at 3, repeat level down to 1.4 on 11/05 * due to hypotension which was then corrected * patient is oriented, accurate historian, just feels lethargic at times (5) Hypotension: * all blood pressure medications held on 11/05 including Coreg, Losartan, Lasix --> resumed coreg 11/06 and losartan/lasix on 11/08 * no signs of significant anemia * replaced Calcium IV to improve heart contractility --> given additional 1gm today for Ca 7.3 * BP 113/69 this morning although back down to 99/64 -- BP medications with parameters * Continue to monitor (6) Hypocalcemia: * Ca was 6.9 on 11/05, prior levels have all been normal * related to surgery? * she has metastatic breast cancer, on Xgeva * Calcium is 7.3 - ordered additional 1gm IV * repeat tomorrow along with albumin (7) Lethargy: * Still present, slightly improved * accurate historian, oriented, just sleepy * could be due to elevated Cr, low calcium, low blood pressure and secondary to OPIOIDS * patient and her sister say she has similar reactions to anesthesia in the past (8) Chronic systolic CHF (congestive heart failure), NYHA class 1: * most recent echo from 2019 shows that EF is now normal at 65% * can handle volume * normal EKG, troponin negative * resume Coreg, lasix, losartan as above (9) Breast cancer: * Follows locally. Hx mastectomy * Colon ca, now with bone metastasis * On Ibrance 21days on, 7 days off. Currently on her off week --> discussed bringing her medication to rehab given cost, agreeable (10) Malignant neoplasm of breast metastatic to bone: * See above (11) Depression: * And anxiety -- continue home gabapentin, paroxetine, ativan (12) DVT prophylaxis: * Xarelto Dispo: possible discharge tomorrow to rehab per primary service. CM assisting Admission and Anticipated Discharge Date Admission Date: November 07, 2019 Supervising Physician Co-Signing Physician Notes PA Supervision Note: I did not personally see or examine the patient today, but I verified all lemus points of ANIL Acevedo's assessment and plan with the following exceptions/additions: None Subjective Patient evaluated early this afternoon. Feeling worn out, fatigued. Pain to lateral left thigh, worse with movement but controlled with current medications ordered. Some shortness of breath with exertion. She had been off oxygen this morning but then needed placed back on after working with therapy. No history of sleep apnea. She did have her lasix resumed and states she has been urinating like crazy. Not eating much due to nausea but states she has been taking adequate PO -- had tea from DD, diet pepsi and water almost completely gone on bedside table. Discussed adding phenergan prn for nausea and this will assist with some sleep as well due to sedating effects as she states she did not get much sleep. States she typically does take this daily at home. Minimally edema to her legs. Denies shortness of breath at rest. History of smoking and states quit again previous sunday. No need for nicotine patch at this time. She did have small amount of rectal discharge this morning, which is unusual for her given her ostomy and lack of bowel movements. No increased ostomy output or change in color/consistency. Discussed some erythema but no evidence of abscess on exam. Instructed to alert nursing if continues. Denies fever, chills, headache, dizziness, chest pain, abdominal pain, vomiting, dysuria at this time. With regards to her shortness of breath, she denies sputum production or cough but was heard with cough and felt to have some chest congestion. Discussed adding mucinex to thin secretions -- agreeable. Discussed safety at discharge and better option for short term rehab. Patient agreeable for ref to be sent. Likely no discharge until tomorrow with plans for eventual return home with services. Review of Systems Review of Systems: All systems reviewed & are unremarkable except as noted in HPI & below Physical Exam Constitutional: well developed, + obese, cooperative and comfortable; no acute distress Eyes: + anicteric sclerae and PERRL ENMT: external ear and nose normal, oropharynx normal Neck: trachea midline, no thyromegaly Respiratory: normal respiratory effort and able to speak in complete sentences; no respiratory distress and no labored breathing Auscultation: + diminished lung sounds and + crackles (Left apex); no rhonchi and no wheezes 97% on 2L via NC Cardiovascular: Rate/Rhythm: regular rate and regular rhythm Vessels: no JVD Extremities: + edema (trace b/l LE) Gastrointestinal (Abdomen): normal bowel sounds, soft, nontender, no hepatosplenomegaly (ostomy LLQ with scant brown output) Musculoskeletal: dressing to left hip with prevena intact minimal tender to palpation left lateral thigh NVI 4/5 LLE strength with dorsiflexion, 5/5 RLE calves non-tender to palpation Skin: no rashes, warm and dry Neurologic: normal touch/pain/proprioception, CN's II-XI intact bilaterally, deep tendon reflexes 2+ bilaterally, moves all extremities and awake; no focal motor deficits Psychiatric: Orientation: alert and oriented x 3 Lymphatic: no cervical or axillary lymphadenopathy Results & Data Results & Data ([facility]) Vital Signs (Past 12 Hours) Vital Signs Temp Pulse Resp BP Pulse Ox 11/10/19 08:16 36.8 C 71 16 113/69 96 11/10/19 02:09 95 11/10/19 02:07 75 L Laboratory Results 11/10/19 11/10/19 11/10/19 Range/Units 12:24 08:44 08:07 WBC (4.8-10.8) K/uL RBC (4.2-5.4) M/uL Hgb (12.0-16.0) g/dL Hct (37-47) % MCV (80-100) fL MCH (25-34) pg MCHC (32-36) g/dL RDW Std Deviation (36.4-46.3) fL RDW Coeff of Bradford (11.5-14.5) % Plt Count (130-400) K/uL MPV (7.4-10.4) fL Sodium (136-145) mmol/L Potassium (3.5-5.1) mmol/L Chloride (98-107) mmol/L Carbon Dioxide (21-32) mmol/L Anion Gap (3-11) BUN (7-18) mg/dl Creatinine (0.6-1.2) mg/dl Est Cr Clr Drug Dosing ml/min Est GFR ( Amer) Est GFR (Non-Af Amer) BUN/Creatinine Ratio (10-20) Glucose (70-99) mg/dl POC Glucose 135 H 135 H (70-99) mg/dl Calcium (8.5-10.1) mg/dl Vitamin B12 517 (211-911) pg/ml Folate 9.27 (>5.38) ng/ml 11/10/19 11/10/19 11/09/19 Range/Units 05:12 05:12 20:19 WBC 3.81 L (4.8-10.8) K/uL RBC 3.48 L (4.2-5.4) M/uL Hgb 11.9 L (12.0-16.0) g/dL Hct 38.5 (37-47) % MCV 110.6 H (80-100) fL MCH 34.2 H (25-34) pg MCHC 30.9 L (32-36) g/dL RDW Std Deviation 56.2 H (36.4-46.3) fL RDW Coeff of Bradford 14.0 (11.5-14.5) % Plt Count 274 (130-400) K/uL MPV 9.9 (7.4-10.4) fL Sodium 140 (136-145) mmol/L Potassium 4.5 (3.5-5.1) mmol/L Chloride 112 H (98-107) mmol/L Carbon Dioxide 24 (21-32) mmol/L Anion Gap 4.0 (3-11) BUN 19 H (7-18) mg/dl Creatinine 0.80 (0.6-1.2) mg/dl Est Cr Clr Drug Dosing 89.6 ml/min Est GFR ( Amer) 90.3 Est GFR (Non-Af Amer) 77.9 BUN/Creatinine Ratio 23.6 H (10-20) Glucose 122 H (70-99) mg/dl POC Glucose 124 H (70-99) mg/dl Calcium 7.3 L (8.5-10.1) mg/dl Vitamin B12 (211-911) pg/ml Folate (>5.38) ng/ml 11/09/19 Range/Units 17:06 WBC (4.8-10.8) K/uL RBC (4.2-5.4) M/uL Hgb (12.0-16.0) g/dL Hct (37-47) % MCV (80-100) fL MCH (25-34) pg MCHC (32-36) g/dL RDW Std Deviation (36.4-46.3) fL RDW Coeff of Bradford (11.5-14.5) % Plt Count (130-400) K/uL MPV (7.4-10.4) fL Sodium (136-145) mmol/L Potassium (3.5-5.1) mmol/L Chloride (98-107) mmol/L Carbon Dioxide (21-32) mmol/L Anion Gap (3-11) BUN (7-18) mg/dl Creatinine (0.6-1.2) mg/dl Est Cr Clr Drug Dosing ml/min Est GFR ( Amer) Est GFR (Non-Af Amer) BUN/Creatinine Ratio (10-20) Glucose (70-99) mg/dl POC Glucose 121 H (70-99) mg/dl Calcium (8.5-10.1) mg/dl Vitamin B12 (211-911) pg/ml Folate (>5.38) ng/ml PG Care Time/CCT Total # of Minutes Spent Total Time Spent with Patient: Total time spent is greater than 50% in coordination of care (as documented) at patient's floor/unit and/or counseling patient: Coding Level of Care Code 21084 Subseq Hosp Care Lvl 3 Diagnoses Lesion of femur M89.9 Shortness of breath R06.02 Acute kidney injury N17.9 Elevated lactic acid level R79.89 Hypotension I95.9 Hypocalcemia E83.51 Lethargy R53.83 Chronic systolic CHF (congestive heart failure), NYHA class 1 I50.22 Breast cancer C50.919 Malignant neoplasm of breast metastatic to bone C50.919; C79.51 Depression F32.9 DVT prophylaxis Z29.9
[2019-11-10] MEDS ORDERED: PROMETHAZINE HCL 12.5 MG in SODIUM CHLORIDE 0.9% 50 ML IV PRN (13:54)
[2019-11-10] MEDS: OXYCODONE HCL IR 5 MG TAB (IMMEDIATE RELEASE) PO PRN (14:12)
[2019-11-10] MEDS: guaiFENesin 600 MG TABCR PO SCH ×2 (15:15→20:49)
[2019-11-10] MEDS: ONDANSETRON INJ 2 MG/ML 2 ML VIAL IV PRN (18:09)
[2019-11-10] MEDS: SENNA 8.6 MG TAB PO SCH (20:49)
[2019-11-11 06:17] LABS: Albumin Level 2.1 gm/dl (3.4-5.0); BUN Creatinine Ratio 22.9 (10-20); Calcium 7.1 mg/dl (8.5-10.1); Creatinine Clr Calc Pharmacy 105.5 ml/min; Est GFR (African American) 107.1; Est GFR (Non-African American) 92.4; Potassium 4.3 mmol/L (3.5-5.1)
[2019-11-11 06:20] LABS: Albumin Globulin Ratio 0.6 (0.9-2); Bilirubin,Total 0.6 mg/dl (0.2-1); Globulin 3.8 gm/dl (2.5-4.0); Total Protein 5.9 gm/dl (6.4-8.2)
[2019-11-11 08:07] VITALS: BP 104/69; TEMP 98.4; O2SAT 95
[2019-11-11] MEDS: PALBOCICLIB PO SCH (08:07)
[2019-11-11] MEDS: guaiFENesin 600 MG TABCR PO SCH (08:59)
[2019-11-11] MEDS: PARoxetine HCL 10 MG TAB PO SCH (08:59)
[2019-11-11] MEDS: FUROSEMIDE 40 MG TAB PO SCH (09:00)
[2019-11-11] MEDS: LOSARTAN POTASSIUM 25 MG TAB PO SCH (09:00)
[2019-11-11] MEDS: SENNA 8.6 MG TAB PO SCH (09:00)
[2019-11-11] MEDS: carvediloL 25 MG TAB PO SCH (09:00)
[2019-11-11] MEDS: ASCORBIC ACID 500 MG TAB PO SCH (09:01)
[2019-11-11] MEDS: NICOTINE 14 MG/24 HR PATCH TD SCH (09:01)
[2019-11-11] MEDS: DOCUSATE SODIUM 100 MG CAP PO SCH (09:01)
[2019-11-11] MEDS: METFORMIN HCL 500 MG TAB PO SCH (09:01)
[2019-11-11] MEDS: MULTIVITAMIN TAB PO SCH (09:02)
[2019-11-11] MEDS: FERROUS GLUCONATE 324 MG TAB PO SCH (09:02)
[2019-11-11] MEDS: RIVAROXABAN 10 MG TABLET PO SCH (09:02)
[2019-11-11] MEDS: INSULIN ASPART 100 UNITS/ML 3 ML PEN SC SCH (09:05)
[2019-11-11 10:20] VITALS: PULSE 88
--- NOTE | 2019-11-11 10:35 | Hospitalist Progress Note ---
Date of Service November 11, 2019 Assessment & Plan (1) Lesion of femur: Metastatic breast to bone CA * POD #6 LEFT hip arthroplasty with Dr. Trent * PT/OT/pain management/DVT prophylaxis (Xarelto) per primary service * h/h stable, 11.9/38.5 * CM assisting for rehab --> * [facility] this afternoon with O2 2L via [facility] --> discussed likely would benefit from sleep study/work-up for sleep apena outpatient (2) Shortness of breath: * with exertion -- recently cleared by cardiology. On appropriate medications. Hx smoking, recently quit * Recent ECHO stable * Encouraged use of IS Q1H WA * Ordered mucinex to thin secretions as she feels "junk" stuck * 95% on 2L. No fever, WBC, or sputum production. No adventitious breath sounds hear on examination. * Sent to [facility] with oxygen --> appears to occur mostly when she is sleeping and discussed she would likely benefit from sleep study for possible BLAKE (3) Acute kidney injury: RESOLVED * Cr peaked at 2.3 on 11/05 -- likely hypotension mediated OZIEL in conjunction wi th Toradol, Losartan, Lasix * Given aggressive IV fluids * Discontinued espana on 11/06 -- UO acceptable * Resumed lasix and losartan * Cr stable at 0.68 (4) Elevated lactic acid level: RESOLVED * elevated at 3, repeat level down to 1.4 on 11/05 * due to hypotension which was then corrected * patient is oriented, accurate historian (5) Hypotension: * all blood pressure medications held on 11/05 including Coreg, Losartan, Lasix --> resumed coreg 11/06 and losartan/lasix on 11/08 * no signs of significant anemia * replaced Calcium IV to improve heart contractility --> given additional 1gm today for Ca 7.3 * BP 104/69 --> had refused evening medications. * Continue BP medications with hold parameters (6) Hypocalcemia: * Ca was 6.9 on 11/05, prior levels have all been normal * related to surgery? * she has metastatic breast cancer, on Xgeva * Calcium repleted and corrected with albumin on AM labs is 8.6, wnl * Encourage better PO intake vs supplementation (7) Lethargy: * Still present, slightly improved * accurate historian, oriented, just sleepy * could be due to elevated Cr, low calcium, low blood pressure and secondary to OPIOIDS --> Nucynta discontinued and pain controlled * patient and her sister say she has similar reactions to anesthesia in the past (8) Chronic systolic CHF (congestive heart failure), NYHA class 1: * most recent echo from 2019 shows that EF is now normal at 65% * can handle volume * normal EKG, troponin negative * resumed Coreg, lasix, losartan as above (9) Breast cancer: * Follows locally. Hx mastectomy * Colon ca, now with bone metastasis * On Ibrance 21days on, 7 days off. Currently on her off week --> discussed bringing her medication to rehab given cost, agreeable (10) Malignant neoplasm of breast metastatic to bone: * See above (11) Depression: * And anxiety -- continue home gabapentin, paroxetine, ativan (12) DVT prophylaxis: * Xarelto Dispo: discharged to [facility] for rehab with eventual plans to return home Admission and Anticipated Discharge Date Admission Date: November 07, 2019 Supervising Physician Co-Signing Physician Notes PA Supervision Note: I did not personally see or examine the patient today, but I verified all lemus points of ANIL Acevedo's assessment and plan with the following exceptions/additions: None Subjective Patient evaluated this morning. Still feeling run down but not excited about need for rehab at discharge instead of home, but she is agreeable that this is safest way to reach her goal of returning home. Refused PM medications but denies this was due to nausea. She didn't feel like taking them. Discussed continued O2 at rehab but that she may benefit from work-up for sleep apnea as she seems to have most apneic episodes during sleep with daytime somnolence and snoring. Also should continue Mucinex to help clear secretions as recently quit smoking. Sister at bedside for discussion. Pain has been controlled. Shortness of breath with ambulation but not at rest. No fever, chills, chest pain, abdominal pain. No further rectal drainage today. Up with walker with one assist today. Plans for discharge this afternoon for rehab. Review of Systems Review of Systems: All systems reviewed & are unremarkable except as noted in HPI & below Physical Exam Constitutional: well developed, + obese and cooperative; no acute distress Eyes: + anicteric sclerae and PERRL Neck: normal visual inspection Respiratory: normal respiratory effort and able to speak in complete sentences; no respiratory distress and no labored breathing Auscultation: + diminished lung sounds; no crackles, no rhonchi and no wheezes Cardiovascular: Rate/Rhythm: regular rate and regular rhythm Vessels: no JVD Extremities: + edema (trace b/l LE) Gastrointestinal (Abdomen): normal bowel sounds, soft, nontender, no hepatosplenomegaly (ostomy LLQ) Musculoskeletal: no cyanosis or clubbing, extremities motor strength 5/5 Head/Neck/Chest: normocephalic and head atraumatic dressing to LEFT hip c/d/i with Prevena functioning Skin: warm, dry Neurologic: normal touch/pain/proprioception, moves all extremities and awake; no focal motor deficits Psychiatric: Orientation: alert and oriented x 3 Lymphatic: no cervical or axillary lymphadenopathy Results & Data Results & Data ([facility]) Vital Signs (Past 12 Hours) Vital Signs Temp Pulse Pulse Pulse Resp BP BP 11/11/19 10:18 36.9 C 88 88 76 16 104/69 104/69 11/11/19 08:05 36.9 C 76 16 104/69 11/10/19 22:51 36.8 C 75 18 121/58 L Pulse Ox 11/11/19 10:18 95 11/11/19 08:05 95 11/10/19 22:51 94 Laboratory Results 11/11/19 11/11/19 11/10/19 Range/Units 08:10 05:23 20:35 Sodium 140 (136-145) mmol/L Potassium 4.3 (3.5-5.1) mmol/L Chloride 110 H (98-107) mmol/L Carbon Dioxide 24 (21-32) mmol/L Anion Gap 6.0 (3-11) BUN 16 (7-18) mg/dl Creatinine 0.68 (0.6-1.2) mg/dl Est Cr Clr Drug Dosing 105.5 ml/min Est GFR ( Amer) 107.1 Est GFR (Non-Af Amer) 92.4 BUN/Creatinine Ratio 22.9 H (10-20) Glucose 135 H (70-99) mg/dl POC Glucose 150 H 122 H (70-99) mg/dl Calcium 7.1 L (8.5-10.1) mg/dl Total Bilirubin 0.6 (0.2-1) mg/dl AST 18 (15-37) U/L ALT 10 L (12-78) U/L Alkaline Phosphatase 57 (45-117) U/L Total Protein 5.9 L (6.4-8.2) gm/dl Albumin 2.1 L (3.4-5.0) gm/dl Globulin 3.8 (2.5-4.0) gm/dl Albumin/Globulin Ratio 0.6 L (0.9-2) 11/10/19 Range/Units 17:22 Sodium (136-145) mmol/L Potassium (3.5-5.1) mmol/L Chloride (98-107) mmol/L Carbon Dioxide (21-32) mmol/L Anion Gap (3-11) BUN (7-18) mg/dl Creatinine (0.6-1.2) mg/dl Est Cr Clr Drug Dosing ml/min Est GFR ( Amer) Est GFR (Non-Af Amer) BUN/Creatinine Ratio (10-20) Glucose (70-99) mg/dl POC Glucose 119 H (70-99) mg/dl Calcium (8.5-10.1) mg/dl Total Bilirubin (0.2-1) mg/dl AST (15-37) U/L ALT (12-78) U/L Alkaline Phosphatase (45-117) U/L Total Protein (6.4-8.2) gm/dl Albumin (3.4-5.0) gm/dl Globulin (2.5-4.0) gm/dl Albumin/Globulin Ratio (0.9-2) PG Care Time/CCT Total # of Minutes Spent Total Time Spent with Patient: Total time spent is greater than 50% in coordination of care (as documented) at patient's floor/unit and/or counseling patient: Coding Level of Care Code 75650 Subseq Hosp Care Lvl 1 Diagnoses Lesion of femur M89.9 Shortness of breath R06.02 Acute kidney injury N17.9 Elevated lactic acid level R79.89 Hypotension I95.9 Hypocalcemia E83.51 Lethargy R53.83 Chronic systolic CHF (congestive heart failure), NYHA class 1 I50.22 Breast cancer C50.919 Malignant neoplasm of breast metastatic to bone C50.919; C79.51 Depression F32.9 DVT prophylaxis Z29.9
--- NOTE | 2019-11-11 11:51 | Progress Notes ---
DATE: 11/11/2019 SUBJECTIVE: A 63-year-old white female now 6 days out from a left hybrid total hip arthroplasty done for impending fracture. She is doing well. Making gradual improvements. Pain is controlled. Breathing is better. No chest pain or shortness of breath. Not feeling dizzy or lightheaded. OBJECTIVE: VITAL SIGNS: Temperature 36.9. Vital signs stable. GENERAL: Shows a pleasant, middle-aged female. She is lying in bed and looks pretty comfortable. EXTREMITIES: Examination of left hip reveals the dressing/Prevena VAC to be in place. Leg is well aligned. Thigh is soft and supple. She is neurologically intact. LABORATORY DATA: Creatinine is normal at 0.68. Electrolytes are otherwise normal. ASSESSMENT: A 63-year-old white female postoperative day 6 from a left hybrid total hip arthroplasty done for impending fracture. She continues to make gradual improvements. We have been waiting for placement and she has been accepted to [facility]. PLAN: 1. DVT prophylaxis including thigh-high TEDs, SCDs, and Xarelto for 1 month. 2. PT/OT. She can weightbear as tolerated. Left total hip protocol. 3. Pain control, doing okay with current pain regimen. 4. Medical management as per the medicine service. 5. Disposition: We are going to discharge her to [facility] today for further rehab.
--- NOTE | 2019-11-14 16:03 | Discharge Summary ---
Date of Service November 14, 2019 Admission HPI Per Admitting Provider Documented in the H & P Admission Exam (Per Admitting) Constitutional Documented in the H & P Discharge Data Consultations 11/06/19 07:39 Consult Hospitalist Routine 11/06/19 08:00 Consult Case Management - Discharge Planning Routine Procedures Performed Operation Date: 11/05/19 09:10 Actual Procedures p Left Cemented Total Hip Replacement(Left) - Fercho Trent MD Hospital Course (1) Status post total hip replacement, left: This patient is a 63 year old female admitted on 11/05/19 and underwent total hip arthroplasty due to an impending pathological fracture. She tolerated the procedure well and there were no complications. Transferred to the PACU post op and later to the orthopedic floor for further care. She was given ancef for antibiotic prophylaxis. She was also given WALT stockings, SCDs, and xarelto for DVT prophylaxis. Hemoglobin, hematocrit, and vital signs were monitored during her hospital stay and remained stable. Did not require any blood transfusions. Her creatinine was elevated and she did have some hypotension post op. The hospitalist service was consulted for medical management. There were no complications during their hospital stay. By post op day #5 the patient was tolerating a diabetic diet, pain was reasonably controlled with oral pain medicine, and she was participating in physical therapy. On post op day #5 the patient was discharged to a rehab facility. She was given printed discharge instructions including prescriptions for extra strength tylenol, oxycodone, and xarelto. Continue physical therapy, weight bearing as tolerated. Continue total hip precautions. Continue WALT stockings. She did have some shortness of breath through out her hospital stay and was transferred with oxygen. Follow up approximately 2 weeks post op or sooner if there are problems or concerns. Coding Level of Care Code None Diagnoses Status post total hip replacement, left Z96.642
== END 2019-11-11 12:28 | DRG 522 ==
LOC: ASU 06:45 → 3E 06:45

== ENCOUNTER 2022-06-21 11:21 | Inpatient (IN) ==
[2022-06-21] MEDS ORDERED: SODIUM CHLORIDE 0.9% 1000ML 1,000 ML IV SCH ×2 (11:30→14:00)
--- NOTE | 2022-06-21 11:51 | Emergency Department Note ---
History of Present Illness General Chief complaint: Weakness Stated complaint: WEAKNESS, UNBLE TO WALK Time Seen by Provider: 06/21/22 11:27 History of Present Illness Provider complaint: Weakness Onset (ago): week(s) 2 Maximum Pain Intensity: 0 66-year-old female presents emergency department for weakness. Patient reports she has been feeling weak and having difficulty walking. She states over the last 2 weeks she is falling 4 times. She denies any head trauma. Patient is on Eliquis. Patient reports he is feeling very weak. She is on oral chemotherapy for breast cancer and states she just restarted taking her chemotherapy today. She does report a great amount of green discharge from her right eye. No excessive bowel movements through her ostomy. No dysuria or hematuria. No fever. No chest pain or difficulty breathing. Home Medications Medication Instructions Recorded Confirmed Type acetaminophen 500 mg tablet 500 mg PO Q6H PRN Pain 04/13/20 06/21/22 History (Tylenol Extra Strength) capecitabine 500 mg tablet 2,000 mg PO BID 10/04/20 06/21/22 History paroxetine HCl 30 mg tablet (Paxil) 30 mg PO QAM #90 tabs 09/30/21 06/21/22 Rx furosemide 40 mg tablet 40 mg PO QAM #90 tabs 10/11/21 06/21/22 Rx carvedilol 12.5 mg tablet 6.25 mg PO BID #180 tabs 10/13/21 06/21/22 Rx potassium chloride 20 mEq 20 meq PO QAM #90 tabs 11/29/21 06/21/22 Rx tablet,extended release losartan 25 mg tablet 25 mg PO QPM 12/13/21 06/21/22 History metformin 1,000 mg tablet 1,000 mg PO BID #180 tabs 12/13/21 06/21/22 Rx omeprazole 20 mg capsule,delayed 20 mg PO QAM 12/13/21 06/21/22 History release gabapentin 300 mg capsule 300 mg PO .COMPLEX #360 caps 02/16/22 06/21/22 Rx fulvestrant 250 mg/5 mL 500 mg (10 mL) IM ONCE 3 doses #10 03/14/22 06/21/22 Rx intramuscular syringe mL atorvastatin 10 mg tablet 10 mg PO QPM #90 tabs 03/21/22 06/21/22 Rx apixaban 5 mg tablet (Eliquis) 5 mg PO BID DVT #180 tabs 05/01/22 06/21/22 Rx Calcium 600 + D(3) 1 tab PO DAILY 06/21/22 06/21/22 History Allergies Allergy/AdvReac Type Severity Reaction Status Date / Time aspirin Allergy Mild hives Verified 06/21/22 09:53 ibuprofen Allergy Mild hives Verified 06/21/22 09:53 tamoxifen Allergy Unknown temporary Verified 06/21/22 09:53 left eye vision loss Past Med/Surg History Medical History Abnormal CT scan recent CT @ [place] w/ evidence 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 Barkley Chronic systolic CHF (congestive heart failure), NYHA class [address] 2017 (after diverticular perforation complications) Depression Difficult intravenous access difficult IV access Left arm Diverticular disease DM type 2 (diabetes mellitus, type 2) NIDDM Encounter for pre-operative examination Hyperlipidemia Left leg DVT started on eliquis. repeat doppler in 07/2021. Lumbar disc herniation with radiculopathy LV dysfunction Metastatic breast cancer hx chemo, radiation + surgery Morbid obesity PAC (premature atrial contraction) h/o PVC (premature ventricular contraction) h/o Surgical History H/O bilateral mastectomy denies limb restriction History of cardiac cath 2017 - [place] - cardiomyopathy - no stents/angioplasty History of humerus fracture (03/26/20) with open reduction and internal fixation due to pathological fracture (Dr. Gillette) History of hysterectomy History of intestinal surgery History of lumbar laminectomy History of surgery for malignant neoplasm 2017 removal of substernal mass + radiation Family History Mother Breast cancer Sister Breast cancer Father Myocardial infarction Prostate cancer Other Cancer Heart disease Hypertension Denies family history of Ovarian cancer Colorectal cancer Social History Smoking Status: Current every day smoker Tobacco Type: Cigarettes Age Started Using Tobacco: 15; Cigarettes Per Day: 3/4 pack per day; Second Hand Exposure: No; Do You Dip or Chew Tobacco: No; Tobacco Cessation Education Requested by Patient: No Hx Alcohol Use: No Hx Substance Use: No Preferred Language: Irish Communication Ability: Effective Visual Impairment: No Limitations Director Of Alumni Relations Required: No Beliefs That Will Affect Care: None marital status: Single Current Living Situation: Alone current occupational status: retired How many Children do You have: 0 Other Information That Helps Us Care for You: No Feels Safe at Home: Yes Safety Concerns: Feels Safe At This Time Childhood Exposure to Second-Hand Smoke: No Diet: regular caffeine: Yes Dental Care, Regularly: Yes Physical Activity Frequency: Does not Exercise Seatbelt Use: never Sunscreen Use: Yes Assistive Devices: Cane and Denture - Upper Assistive Devices Comment: uses upper and lower dentures, only upper here Physical Exam Vital Signs Vital Signs - 24 hr 06/21/22 11:23 06/21/22 11:41 06/21/22 11:51 Temperature 36.2 C L Temperature Source Temporal Artery Scan Pulse Rate 86 Pulse Rate [Apical] 104 H Respiratory Rate 18 18 Respiratory Effort / Characteristics Non-Labored Respiratory Depth Normal Blood Pressure 69/49 L Blood Pressure [Left Arm] 104/75 Blood Pressure Mean 55 Blood Pressure Mean [Left Arm] 84 Pulse Oximetry Oxygen Delivery Method Room Air Sepsis Recent Fever Within 48 Hours No Sepsis New/Unexplained Change in Mental Status No Sepsis Action Taken by Nursing No Action Required 06/21/22 12:37 06/21/22 14:00 Temperature Temperature Source Pulse Rate Pulse Rate [Apical] 86 82 Respiratory Rate 18 18 Respiratory Effort / Characteristics Respiratory Depth Blood Pressure Blood Pressure [Left Arm] 90/55 L 107/56 L Blood Pressure Mean Blood Pressure Mean [Left Arm] 66 73 Pulse Oximetry 95 Oxygen Delivery Method Room Air Sepsis Recent Fever Within 48 Hours Sepsis New/Unexplained Change in Mental Status Sepsis Action Taken by Nursing Physical Exam GENERAL: Ill-appearing. HENT: Exam performed. -Head: Normocephalic and atraumatic. -Right Ear: External ear normal. No mastoid erythema -Left Ear: External ear normal. No mastoid erythema EYES: Conjunctivae and EOM are normal. Pupils are equal, round, and reactive to light. Right eye exhibits green discharge. Left eye exhibits no discharge. No scleral icterus. NECK: Normal range of motion. Neck supple. No JVD present. No spinous process tenderness present. CV: Normal rate, regular rhythm, normal heart sounds and intact distal pulses. There is no peripheral edema. Palpable radial pulses bue. PULM/CHEST: Effort normal and breath sounds normal. No respiratory distress. No stridor. She has no wheezes. She has no rales. ABD: The abdomen is soft. There is an ostomy present. No pain on palpation of the abdomen. NEURO: She is alert and oriented to person, place, and time. She has normal strength. No cranial nerve deficit. GCS eye subscore is 4. GCS verbal subscore is 5. GCS motor subscore is 6. No clonus. Course Course 1127: The patient was evaluated in room C3. A complete history and physical exam was performed Cardiac monitoring: An order was placed for continuous cardiac monitoring. The monitor shows a rate of 80 with sinus rhythm interpreted by dc 1415: Vital signs improved with IV fluids. Labs show a white blood cell count 9.87. Hemoglobin of 12. VBG shows a venous pH of 7.23 with a venous PCO2 of 42 venous bicarb of 18. Creatinine is up to 2.64 from the patient's baseline of approximately 1.1. Patient's lactic acid was 4.5. Patient was given 30 cc/kg normal saline bolus. Cefepime 2 g IV piggyback was ordered for the patient. Patient's calcium level was 6.3 magnesium 0.6. Electrolyte repletion started in the emergency department. Troponin 16.5. Patient now reporting chest pain. Troponin elevation is thought to be secondary to patient's OZIEL. BioFire negative. Imaging shows no traumatic injuries or pneumonia. [facility] be [facility]. Discussed the case with Dr. Sanz and Michael Jenkins PA-C Administered Medications Magnesium Sulfate/Dextrose (Magnesium Sulfate / D5w) 1 gm in 100 mls @ 50 mls/hr IV Q2H TUNDE Stop: 06/22/22 01:14 Last Admin: 06/21/22 17:23 Dose: 50 mls/hr Documented By: ESME Lactated Ringer's (Lr) 1,000 mls @ 80 mls/hr IV .[id number] TUNDE Stop: 06/22/22 17:54 Last Admin: 06/21/22 17:23 Dose: 80 mls/hr Documented By: ESME Insulin Aspart (Insulin Aspart Per Unit Charge) 0 units SC Q6H TUNDE Stop: 07/21/22 15:14 Last Admin: 06/21/22 17:45 Dose: Not Given Documented By: AK Discontinued Medications Sodium Chloride (Nss 1000ml) 1,000 mls @ 999 mls/hr IV .Q1H1M TUNDE Stop: 06/21/22 12:30 Last Infusion: 06/21/22 13:11 Dose: 0 mls/hr Documented By: Admin: 06/21/22 12:10 Dose: 999 mls/hr Documented By: OL Sodium Chloride (Nss 1000ml) 1,000 mls @ 999 mls/hr IV .Q1H1M ONE Stop: 06/21/22 13:36 Last Infusion: 06/21/22 13:51 Dose: 0 mls/hr Documented By: Admin: 06/21/22 12:48 Dose: 999 mls/hr Documented By: OL Cefepime HCl (Maxipime) 2,000 mg in 20 mls @ 5 mls/min IV NOW STA; Protocol Stop: 06/21/22 12:47 Last Admin: 06/21/22 12:58 Dose: 5 mls/min Documented By: OL Calcium Gluconate () 1,000 mg in 60 mls @ 240 mls/hr IV NOW STA Stop: 06/21/22 14:08 Last Infusion: 06/21/22 14:49 Dose: 0 mls/hr Documented By: Admin: 06/21/22 14:30 Dose: 240 mls/hr Documented By: QGV Magnesium Sulfate/Dextrose (Magnesium Sulfate / D5w) 1 gm in 100 mls @ 100 mls/hr IV NOW STA Stop: 06/21/22 14:53 Last Infusion: 06/21/22 16:04 Dose: 0 mls/hr Documented By: Admin: 06/21/22 14:53 Dose: 100 mls/hr Documented By: OL Sodium Chloride (Nss 1000ml) 1,000 mls @ 125 mls/hr IV .Q8H TUNDE Stop: 07/21/22 13:59 Last Admin: 06/21/22 14:30 Dose: Not Given Documented By: QGV Lactated Ringer's (Lr) 500 mls @ 999 mls/hr IV .Q31M ONE Stop: 06/21/22 14:43 Last Infusion: 06/21/22 15:17 Dose: 0 mls/hr Documented By: Admin: 06/21/22 14:45 Dose: 999 mls/hr Documented By: OL Critical Care Time Critical Care Time: Yes Total Critical Care Time: 67 I have personally spent greater than 67 minutes of critical care time in the direct management of this patient. This includes bedside care, interpretation of diagnostic studies, and testing, discussion with consultants, patient, and family members, and other required patient management activities. This 67 minutes is in excess of all separately billable procedures. Medical Decision Making Laboratory Data Attestation: I reviewed the patient's lab results. 06/21/22 12:04 06/21/22 12:04 Lab Results 06/21/22 06/21/22 06/21/22 Range/Units 11:45 12:04 12:04 WBC 9.87 (4.8-10.8) K/ul RBC 3.34 L (4.20-5.40) M/uL Hgb 12.0 (12.0-16.0) g/dl Hct 35.7 L (37.0-47.0) % MCV 106.9 H (80.0-100.0) fL MCH 35.9 H (25.0-34.0) pg MCHC 33.6 (32.0-36.0) g/dL RDW Std Deviation 76.5 H (36.4-46.3) fL RDW Coeff of Bradford 19.6 H (11.5-14.5) % Plt Count 227 (130-400) K/uL MPV 9.7 (9.4-12.4) fL Immature Gran % (Auto) 1.9 % Neut % (Auto) 69.4 % Lymph % (Auto) 17.4 % [place] % (Auto) 8.4 % Eos % (Auto) 2.5 % Baso % (Auto) 0.4 % Neut # (Auto) 6.84 H (1.40-6.50) K/uL Lymph # (Auto) 1.72 (1.2-3.4) K/uL [place] # (Auto) 0.83 H (0.11-0.59) K/uL Eos # (Auto) 0.25 (0-0.50) K/uL Baso # (Auto) 0.04 (0-0.2) K/uL Immature Gran # (Auto) 0.19 (0.01-0.20) K/uL PT (9.0-12.0) Seconds INR (0.9-1.1) APTT (21.0-31.0) Seconds PTT Ratio VBG pH (7.36-7.41) VBG pCO2 (38-50) mmHg VBG pO2 mmHg VBG HCO3 mmol/L VBG O2 Saturation % VBG Base Excess mEq/L Sodium 136 (136-145) mmol/L Potassium 4.0 (3.5-5.1) mmol/L Chloride 107 (98-107) mmol/L Carbon Dioxide 17 L (21-32) mmol/L Anion Gap 12 H (3-11) BUN 28 H (6-23) mg/dl Creatinine 2.64 H (0.6-1.2) mg/dl Est Cr Clr Drug Dosing 22.1 ml/min Est GFR ( Amer) 20.9 ml/min Est GFR (Non-Af Amer) 18.0 ml/min BUN/Creatinine Ratio 10.6 (10-20) Glucose 110 H (70-99(Fasting)) mg/dl Lactate (0.4-2.0) mmol/L Calcium 6.3 L (8.6-10.3) mg/dl Magnesium 0.6 L* (1.7-2.4) mg/dl Total Bilirubin 0.7 (0.2-1.0) mg/dl Direct Bilirubin 0.1 (0-0.2) mg/dl AST 15 (13-39) U/L ALT 9 (7-52) U/L Alkaline Phosphatase 72 (34-104) U/L Troponin I High Sens 16.5 H (0-14) pg/ml Total Protein 6.4 (6.0-8.3) gm/dl Albumin 3.4 (3.4-5.0) gm/dl Procalcitonin (0-0.5) ng/ml Adenovirus (PCR) Not Detected (NotDetected) B. pertussis DNA (PCR) Not Detected (NotDetected) B.parapertussis DNA PCR Not Detected (NotDetected) C. pneumoniae DNA (PCR) Not Detected (NotDetected) Coronavirus OC43 (PCR) Not Detected (NotDetected) Coronavirus HKU1 (PCR) Not Detected (NotDetected) Coronavirus 229E (PCR) Not Detected (NotDetected) SARS-CoV-2 (PCR) Not Detected (NotDetected) Coronavirus NL63 (PCR) Not Detected (NotDetected) Human Metapneumovir PCR Not Detected (NotDetected) Influenza Type A (PCR) Not Detected (NotDetected) Influenza Type B (PCR) Not Detected (NotDetected) M. pneumoniae (PCR) Not Detected (NotDetected) Parainfluenza 1 (PCR) Not Detected (NotDetected) Parainfluenza 2 (PCR) Not Detected (NotDetected) Parainfluenza 3 (PCR) Not Detected (NotDetected) Parainfluenza 4 (PCR) Not Detected (NotDetected) RSV (PCR) Not Detected (NotDetected) Entero/Rhino (PCR) Not Detected (NotDetected) Blood Type Antibody Screen 06/21/22 06/21/22 06/21/22 Range/Units 12:04 12:04 12:04 WBC (4.8-10.8) K/ul RBC (4.20-5.40) M/uL Hgb (12.0-16.0) g/dl Hct (37.0-47.0) % MCV (80.0-100.0) fL MCH (25.0-34.0) pg MCHC (32.0-36.0) g/dL RDW Std Deviation (36.4-46.3) fL RDW Coeff of Bradford (11.5-14.5) % Plt Count (130-400) K/uL MPV (9.4-12.4) fL Immature Gran % (Auto) % Neut % (Auto) % Lymph % (Auto) % [place] % (Auto) % Eos % (Auto) % Baso % (Auto) % Neut # (Auto) (1.40-6.50) K/uL Lymph # (Auto) (1.2-3.4) K/uL [place] # (Auto) (0.11-0.59) K/uL Eos # (Auto) (0-0.50) K/uL Baso # (Auto) (0-0.2) K/uL Immature Gran # (Auto) (0.01-0.20) K/uL PT (9.0-12.0) Seconds INR (0.9-1.1) APTT (21.0-31.0) Seconds PTT Ratio VBG pH (7.36-7.41) VBG pCO2 (38-50) mmHg VBG pO2 mmHg VBG HCO3 mmol/L VBG O2 Saturation % VBG Base Excess mEq/L Sodium (136-145) mmol/L Potassium (3.5-5.1) mmol/L Chloride (98-107) mmol/L Carbon Dioxide (21-32) mmol/L Anion Gap (3-11) BUN (6-23) mg/dl Creatinine (0.6-1.2) mg/dl Est Cr Clr Drug Dosing ml/min Est GFR ( Amer) ml/min Est GFR (Non-Af Amer) ml/min BUN/Creatinine Ratio (10-20) Glucose (70-99(Fasting)) mg/dl Lactate 4.5 H* (0.4-2.0) mmol/L Calcium (8.6-10.3) mg/dl Magnesium (1.7-2.4) mg/dl Total Bilirubin (0.2-1.0) mg/dl Direct Bilirubin (0-0.2) mg/dl AST (13-39) U/L ALT (7-52) U/L Alkaline Phosphatase (34-104) U/L Troponin I High Sens (0-14) pg/ml Total Protein (6.0-8.3) gm/dl Albumin (3.4-5.0) gm/dl Procalcitonin 0.21 (0-0.5) ng/ml Adenovirus (PCR) (NotDetected) B. pertussis DNA (PCR) (NotDetected) B.parapertussis DNA PCR (NotDetected) C. pneumoniae DNA (PCR) (NotDetected) Coronavirus OC43 (PCR) (NotDetected) Coronavirus HKU1 (PCR) (NotDetected) Coronavirus 229E (PCR) (NotDetected) SARS-CoV-2 (PCR) (NotDetected) Coronavirus NL63 (PCR) (NotDetected) Human Metapneumovir PCR (NotDetected) Influenza Type A (PCR) (NotDetected) Influenza Type B (PCR) (NotDetected) M. pneumoniae (PCR) (NotDetected) Parainfluenza 1 (PCR) (NotDetected) Parainfluenza 2 (PCR) (NotDetected) Parainfluenza 3 (PCR) (NotDetected) Parainfluenza 4 (PCR) (NotDetected) RSV (PCR) (NotDetected) Entero/Rhino (PCR) (NotDetected) Blood Type A Positive Antibody Screen NEGATIVE 06/21/22 06/21/22 Range/Units 12:04 12:04 WBC (4.8-10.8) K/ul RBC (4.20-5.40) M/uL Hgb (12.0-16.0) g/dl Hct (37.0-47.0) % MCV (80.0-100.0) fL MCH (25.0-34.0) pg MCHC (32.0-36.0) g/dL RDW Std Deviation (36.4-46.3) fL RDW Coeff of Bradford (11.5-14.5) % Plt Count (130-400) K/uL MPV (9.4-12.4) fL Immature Gran % (Auto) % Neut % (Auto) % Lymph % (Auto) % [place] % (Auto) % Eos % (Auto) % Baso % (Auto) % Neut # (Auto) (1.40-6.50) K/uL Lymph # (Auto) (1.2-3.4) K/uL [place] # (Auto) (0.11-0.59) K/uL Eos # (Auto) (0-0.50) K/uL Baso # (Auto) (0-0.2) K/uL Immature Gran # (Auto) (0.01-0.20) K/uL PT 16.1 H (9.0-12.0) Seconds INR 1.5 H (0.9-1.1) APTT 36.2 H (21.0-31.0) Seconds PTT Ratio 1.3 VBG pH 7.23 L (7.36-7.41) VBG pCO2 42 (38-50) mmHg VBG pO2 25 mmHg VBG HCO3 18 mmol/L VBG O2 Saturation < 60.0 % VBG Base Excess -9.5 mEq/L Sodium (136-145) mmol/L Potassium (3.5-5.1) mmol/L Chloride (98-107) mmol/L Carbon Dioxide (21-32) mmol/L Anion Gap (3-11) BUN (6-23) mg/dl Creatinine (0.6-1.2) mg/dl Est Cr Clr Drug Dosing ml/min Est GFR ( Amer) ml/min Est GFR (Non-Af Amer) ml/min BUN/Creatinine Ratio (10-20) Glucose (70-99(Fasting)) mg/dl Lactate (0.4-2.0) mmol/L Calcium (8.6-10.3) mg/dl Magnesium (1.7-2.4) mg/dl Total Bilirubin (0.2-1.0) mg/dl Direct Bilirubin (0-0.2) mg/dl AST (13-39) U/L ALT (7-52) U/L Alkaline Phosphatase (34-104) U/L Troponin I High Sens (0-14) pg/ml Total Protein (6.0-8.3) gm/dl Albumin (3.4-5.0) gm/dl Procalcitonin (0-0.5) ng/ml Adenovirus (PCR) (NotDetected) B. pertussis DNA (PCR) (NotDetected) B.parapertussis DNA PCR (NotDetected) C. pneumoniae DNA (PCR) (NotDetected) Coronavirus OC43 (PCR) (NotDetected) Coronavirus HKU1 (PCR) (NotDetected) Coronavirus 229E (PCR) (NotDetected) SARS-CoV-2 (PCR) (NotDetected) Coronavirus NL63 (PCR) (NotDetected) Human Metapneumovir PCR (NotDetected) Influenza Type A (PCR) (NotDetected) Influenza Type B (PCR) (NotDetected) M. pneumoniae (PCR) (NotDetected) Parainfluenza 1 (PCR) (NotDetected) Parainfluenza 2 (PCR) (NotDetected) Parainfluenza 3 (PCR) (NotDetected) Parainfluenza 4 (PCR) (NotDetected) RSV (PCR) (NotDetected) Entero/Rhino (PCR) (NotDetected) Blood Type Antibody Screen Imaging Data Attestation: I personally reviewed and interpreted this imaging study as follows: My Impression: Chest x-ray negative. Airway clear. No pneumothorax. No consolidation. No cardiomegaly or cephalization.. No free air under the diaphragm. No fractures of the skeletal structures. Radiologist's Impression: Chest X-Ray 06/21/22 11:27 XR chest 1V portable CLINICAL HISTORY: Sepsis TECHNIQUE: Single frontal radiograph of the chest was obtained. Comparison: Comparison is made to chest radiograph 11/06/2019 FINDINGS: No lines and tubes are seen. Left axillary surgical clips are seen. Cardiomegaly is noted. The aortic arch is calcified. The lungs are clear. No evidence of pleural effusion or pneumothorax. Orthopedic fixation hardware is seen about the left distal humerus. IMPRESSION: No acute abnormalities and in particular no radiographic evidence of pneumonia. ACT 112: Negative or not required by law. Electronically signed by: Tucker Johnson M.D. 06/21/2022 11:[address] 06/21/22 11:36 CT SCAN OF THE CERVICAL SPINE CLINICAL HISTORY: Fall. History of breast cancer. COMPARISON STUDY: PET/CT dated 02/22/2022. TECHNIQUE: CT scan of the cervical spine is performed from the skull base to the upper thoracic spine. Images are reviewed in the axial, sagittal, and coronal planes. IV contrast was not administered for this examination. A dose lowering technique was utilized adhering to the principles of ALARA. FINDINGS: Skeletal structures: The skeletal structures are osteopenic. There is no evidence of fracture or subluxation involving the cervical spine. Vertebral body height and alignment are maintained. There is straightening of the cervical l ordosis. Anterior osteophytes are seen throughout. The odontoid process and lateral masses are intact. The atlantoaxial articulation is preserved noting productive degenerative change. The spinous processes appear intact. A large osteoblastic lesion body of T1 is consistent with patient's known bony metastatic disease. A tiny sclerotic focus in the body of C4 may also represent metastatic disease. Osteoblastic lesions are also seen within the right transverse process of T3 and the right posterior fourth rib. Intervertebral discs: There is moderate to severe disc space narrowing at C5-C6 and C6-C7. Mild to moderate narrowing is seen at the remaining cervical levels. Central canal: Posterior disc osteophyte complexes are seen at all cervical levels between C3-C4 and C7-T1. This likely contributes to multilevel acquired compromise of the central canal. Soft tissues: The prevertebral and paraspinous soft tissues are within normal limits. The thyroid gland is heterogeneous. There is atherosclerotic calcification of the carotid bulbs. Calvarium: The visualized calvarium at the skull base appears intact. Osteoblastic metastatic disease is seen at the clivus. Brain parenchyma: Partially visualized brain parenchyma at the skull base is within normal limits. Sinuses and mastoids: The visualized paranasal sinuses are clear. The mastoid air cells are well pneumatized. Lung apices: Emphysematous change is noted at the apices. Apical lung parenchyma is otherwise clear as imaged. IMPRESSION: 1. There is no evidence of fracture or subluxation involving the cervical spine. 2. Osteopenia and spondylotic change as above. 3. Osteoblastic metastatic disease as above. This was better assessed on the 02/22/2022 PET examination. ACT 112: Negative or not required by law. Electronically signed by: Curtis Soriano M.D. 06/21/2022 12:[address] 06/21/22 11:36 CT SCAN OF THE BRAIN WITHOUT IV CONTRAST CLINICAL HISTORY: Fall. COMPARISON STUDY: CT of the brain dated 05/06/2018. TECHNIQUE: Unenhanced axial CT scan of the brain is performed from the vertex to the skull base. A dose lowering technique was utilized adhering to the principles of ALARA. CT DOSE: 1014.10 mGy.cm FINDINGS: Brain parenchyma: There is age-related involutional change noting mild subcortical and periventricular microangiopathic disease. There is no hemorrhage, mass effect, or evidence of acute territorial ischemia by CT criteria. Eldridge-white matter differentiation is preserved. No extra-axial fluid collection is seen. Ventricles, sulci, cisterns: Prominent secondary to involutional change. Intracranial vasculature: There is atherosclerotic calcification of the cavernous carotid arteries. Calvarium: The skeletal structures are osteopenic. No depressed calvarial fracture is identified. Sinuses and mastoids: The visualized paranasal sinuses are clear. The mastoid air cells are well pneumatized. Orbits: The bony orbits are grossly intact. IMPRESSION: There is no hemorrhage, mass effect, or evidence of acute terr itorial ischemia by CT criteria. ACT 112: Negative or not required by law. Electronically signed by: Curtis Soriano M.D. 06/21/2022 12:24 PM Pelvis X-Ray 06/21/22 11:36 XR pelvis 1-2V routine CLINICAL HISTORY: fall TECHNIQUE: A single frontal view of the pelvis was obtained. Comparison: Comparison is made to radiograph of 06/27/2021 FINDINGS: There is no evidence of an acute fracture. Left hip total arthroplasty is seen with chronic bony fragments about the hip joint. Extensive degenerative changes seen in the right hip. No soft tissue abnormality is seen. IMPRESSION: No evidence of acute osseous injury. ACT 112: Negative or not required by law. Electronically signed by: Tucker Johnson M.D. 06/21/2022 11:53 AM ECG Data Attestation: I personally reviewed and interpreted this ECG as follows: Indication: + weakness Rate (beats per minute): 87 Rhythm: + sinus with SA ECG Intervals/blocks: + Normal SC and + Normal QT-c ECG ST segments: + Normal ST segments Additional Comments: QRS 78 MDM Narrative 1127: The patient was evaluated in room C3. A complete history and physical exam was performed Cardiac monitoring: An order was placed for continuous cardiac monitoring. The monitor shows a rate of 80 with sinus rhythm interpreted by me 1415: Vital signs improved with IV fluids. Labs show a white blood cell count 9.87. Hemoglobin of 12. VBG shows a venous pH of 7.23 with a venous PCO2 of 42 venous bicarb of 18. Creatinine is up to 2.64 from the patient's baseline of approximately 1.1. Patient's lactic acid was 4.5. Patient was given 30 cc/kg normal saline bolus. Cefepime 2 g IV piggyback was ordered for the patient. P atient's calcium level was 6.3 magnesium 0.6. Electrolyte repletion started in the emergency department. Troponin 16.5. Patient now reporting chest pain. Troponin elevation is thought to be secondary to patient's OZIEL. BioFire negative. Imaging shows no traumatic injuries or pneumonia. [facility]. Discussed the case with Dr. Sanz and Michael Jenkins PA-C Impression & Plan Sepsis, Hypocalcemia, Hypomagnesemia Discharge Plan Visit Data Chief Complaint: Weakness Stated Complaint: WEAKNESS, UNBLE TO WALK ED Provider: Wilfred Thapa Discharge Problem: Sepsis, Hypocalcemia, Hypomagnesemia Patient Disposition: Admitted As Inpatient Discharge Instructions Interventions: ED Discharge Assessment Last Done: 06/21/22 16:28
--- NOTE | 2022-06-21 11:56 | XRay Report ---
XR pelvis 1-2V routine CLINICAL HISTORY: fall TECHNIQUE: A single frontal view of the pelvis was obtained. Comparison: Comparison is made to radiograph of 06/27/2021 FINDINGS: There is no evidence of an acute fracture. Left hip total arthroplasty is seen with chronic bony frag ments about the hip joint. Extensive degenerative changes seen in the right hip. No soft tissue abnor mality is seen. IMPRESSION: No evidence of acute osseous injury. ACT 112: Negative or not required by law. Electronically signed by: Tucker Johnson M.D. 06/21/2022 11:53 AM
--- NOTE | 2022-06-21 11:56 | XRay Report ---
XR chest 1V portable CLINICAL HISTORY: Sepsis TECHNIQUE: Single frontal radiograph of the chest was obtained. Comparison: Comparison is made to chest radiograph 11/06/2019 FINDINGS: No lines and tubes are seen. Left axillary surgical clips are seen. Cardiomegaly is noted. The aortic arch is calcified. The lungs are clear. No evidence of pleural effusion or pneumothorax. Orthopedic fixation hardware is seen about the left distal humerus. IMPRESSION: No acute abnormalities and in particular no radiographic evidence of pneumonia. ACT 112: Negative or not required by law. Electronically signed by: Tucker Johnson M.D. 06/21/2022 11:54 AM
--- NOTE | 2022-06-21 12:25 | CT Scan Report ---
CT SCAN OF THE BRAIN WITHOUT IV CONTRAST CLINICAL HISTORY: Fall. COMPARISON STUDY: CT of the brain dated 05/06/2018. TECHNIQUE: Unenhanced axial CT scan of the brain is performed from the vertex to the skull base. A do se lowering technique was utilized adhering to the principles of ALARA. CT DOSE: 1014.10 mGy.cm FINDINGS: Brain parenchyma: There is age-related involutional change noting mild subcortical and periventricula r microangiopathic disease. There is no hemorrhage, mass effect, or evidence of acute territorial isc hemia by CT criteria. Eldridge-white matter differentiation is preserved. No extra-axial fluid collection is seen. Ventricles, sulci, cisterns: Prominent secondary to involutional change. Intracranial vasculature: There is atherosclerotic calcification of the cavernous carotid arteries. Calvarium: The skeletal structures are osteopenic. No depressed calvarial fracture is identified. Sinuses and mastoids: The visualized paranasal sinuses are clear. The mastoid air cells are well pneu matized. Orbits: The bony orbits are grossly intact. IMPRESSION: There is no hemorrhage, mass effect, or evidence of acute territorial ischemia by CT sravani perez. ACT 112: Negative or not required by law. Electronically signed by: Curtis Soriano M.D. 06/21/2022 12:24 PM
[2022-06-21 12:27] LABS: Base Excess VBG -9.5 mEq/L; HCO3 VBG 18 mmol/L; Oxygen Saturation VBG < 60.0 %; PCO2 VBG 42 mmHg (38-50); PO2 VBG 25 mmHg; pH VBG 7.23 (7.36-7.41)
[2022-06-21] MEDS ORDERED: SODIUM CHLORIDE 0.9% 1000ML 1,000 ML IV ONE (12:36)
[2022-06-21 12:39] LABS: Basophils # (auto) 0.04 K/uL (0-0.2); Basophils % (auto) 0.4 %; Eosinophils # (auto) 0.25 K/uL (0-0.50); Eosinophils % (auto) 2.5 %; Hematocrit (blood only) 35.7 % (37.0-47.0); Immature Granulocytes # (auto) 0.19 K/uL (0.01-0.20); Immature Granulocytes % (auto) 1.9 %; Lymphocytes # (auto) 1.72 K/uL (1.2-3.4); Lymphocytes % (auto) 17.4 %; Mean Corpuscular Hemoglobin 35.9 pg (25.0-34.0); Mean Corpuscular Hgb Conc 33.6 g/dL (32.0-36.0); Mean Corpuscular Volume 106.9 fL (80.0-100.0); Mean Platelet Volume 9.7 fL (9.4-12.4); Monocytes # (auto) 0.83 K/uL (0.11-0.59); Monocytes % (auto) 8.4 %; Neutrophils # (auto) 6.84 K/uL (1.40-6.50); Neutrophils % (auto) 69.4 %; Platelet Count 227 K/uL (130-400); RDW Coefficient of Variation 19.6 % (11.5-14.5); RDW Standard Deviation 76.5 fL (36.4-46.3); Red Blood Count 3.34 M/uL (4.20-5.40); White Blood Count 9.87 K/ul (4.8-10.8)
--- NOTE | 2022-06-21 12:40 | CT Scan Report ---
CT SCAN OF THE CERVICAL SPINE CLINICAL HISTORY: Fall. History of breast cancer. COMPARISON STUDY: PET/CT dated 02/22/2022. TECHNIQUE: CT scan of the cervical spine is performed from the skull base to the upper thoracic spine . Images are reviewed in the axial, sagittal, and coronal planes. IV contrast was not administered fo r this examination. A dose lowering technique was utilized adhering to the principles of ALARA. FINDINGS: Skeletal structures: The skeletal structures are osteopenic. There is no evidence of fracture or subl uxation involving the cervical spine. Vertebral body height and alignment are maintained. There is s traightening of the cervical lordosis. Anterior osteophytes are seen throughout. The odontoid process and lateral masses are intact. The atlantoaxial articulation is preserved noting productive degenera tive change. The spinous processes appear intact. A large osteoblastic lesion body of T1 is consisten t with patient's known bony metastatic disease. A tiny sclerotic focus in the body of C4 may also rep resent metastatic disease. Osteoblastic lesions are also seen within the right transverse process of T3 and the right posterior fourth rib. Intervertebral discs: There is moderate to severe disc space narrowing at C5-C6 and C6-C7. Mild to mo derate narrowing is seen at the remaining cervical levels. Central canal: Posterior disc osteophyte complexes are seen at all cervical levels between C3-C4 and C7-T1. This likely contributes to multilevel acquired compromise of the central canal. Soft tissues: The prevertebral and paraspinous soft tissues are within normal limits. The thyroid gla nd is heterogeneous. There is atherosclerotic calcification of the carotid bulbs. Calvarium: The visualized calvarium at the skull base appears intact. Osteoblastic metastatic disease is seen at the clivus. Brain parenchyma: Partially visualized brain parenchyma at the skull base is within normal limits. Sinuses and mastoids: The visualized paranasal sinuses are clear. The mastoid air cells are well pneu matized. Lung apices: Emphysematous change is noted at the apices. Apical lung parenchyma is otherwise clear a s imaged. IMPRESSION: 1. There is no evidence of fracture or subluxation involving the cervical spine. 2. Osteopenia and spondylotic change as above. 3. Osteoblastic metastatic disease as above. This was better assessed on the 02/22/2022 PET examinatio n. ACT 112: Negative or not required by law. Electronically signed by: Curtis Soriano M.D. 06/21/2022 12:39 PM
[2022-06-21] MEDS ORDERED: CEFEPIME 2,000 MG/20 ML VIAL IV STA (12:44)
[2022-06-21 13:18] LABS: Adenovirus PCR Not Detected (NotDetected); Bordetella parapertussis PCR Not Detected (NotDetected); Bordetella pertussis PCR Not Detected (NotDetected); Chlamydia pneumoniae PCR Not Detected (NotDetected); Coronavirus 229E PCR Not Detected (NotDetected); Coronavirus CoV-2 (COVID19)PCR Not Detected (NotDetected); Coronavirus HKU1 PCR Not Detected (NotDetected); Coronavirus NL63 PCR Not Detected (NotDetected); Coronavirus OC43PCR Not Detected (NotDetected); Human Metapneumovirus PCR Not Detected (NotDetected); Influenza A PCR Not Detected (NotDetected); Influenza B PCR Not Detected (NotDetected); Mycoplasma pneumoniae PCR Not Detected (NotDetected); Parainfluenza Virus 1 PCR Not Detected (NotDetected); Parainfluenza Virus 2 PCR Not Detected (NotDetected); Parainfluenza Virus 3 PCR Not Detected (NotDetected); Parainfluenza Virus 4 PCR Not Detected (NotDetected); Respiratory Syncytial VirusPCR Not Detected (NotDetected); Rhinovirus/Enterovirus PCR Not Detected (NotDetected)
--- NOTE | 2022-06-21 13:36 | Electrocardiogram Report ---
Test Reason : Blood Pressure : / mmHG Vent. Rate : 087 BPM Atrial Rate : 087 BPM P-R Int : 182 ms QRS Dur : 078 ms QT Int : 406 ms P-R-T Axes : 089 063 079 degrees QTc Int : 488 ms Normal sinus rhythm with sinus arrhythmia Low voltage QRS When compared with ECG of 06-NOV-2019 08:14, Questionable change in QRS axis Confirmed by Cr Alcantar ([id number] on 06/21/2022 1:36:31 PM Referred By: Confirmed By:Orville Alcantar
[2022-06-21 13:38] LABS: Calcium 6.3 mg/dl (8.6-10.3); INR 1.5 (0.9-1.1); Partial Thromboplastin Ratio 1.3; Partial Thromboplastin Time 36.2 Seconds (21.0-31.0); Prothrombin Time 16.1 Seconds (9.0-12.0)
[2022-06-21 13:44] LABS: BUN Creatinine Ratio 10.6 (10-20); Creatinine Clr Calc Pharmacy 22.1 ml/min; Est GFR (African American) 20.9 ml/min
[2022-06-21 13:47] LABS: Troponin I High Sensitivity 16.5 pg/ml (0-14)
[2022-06-21] MEDS ORDERED: CALCIUM GLUCONATE 1,000 MG/60 ML BAG IV STA (13:54)
[2022-06-21] MEDS ORDERED: MAGNESIUM SULFATE / D5W 1 GM/100 ML BAG IV STA (13:54)
[2022-06-21 14:00] LABS: Albumin Level 3.4 gm/dl (3.4-5.0); Bilirubin Direct 0.1 mg/dl (0-0.2); Bilirubin,Total 0.7 mg/dl (0.2-1.0); Magnesium 0.6 mg/dl (1.7-2.4); Total Protein 6.4 gm/dl (6.0-8.3)
--- NOTE | 2022-06-21 14:01 | History & Physical Report ---
Date of Service June 21, 2022 Assessment & Plan (1) Hypotension: Plan: -Admit to the PCU on tele and continuous pulse oximetry -At this time her acute hypotension appears to be due to severe dehydration in the setting of poor oral intake, continued diuretic use and continued antihypertensive use -S/P one dose of cefepime and 2L NSS in the ED, currently stable at 107/56 -Low suspicion for infectious etiology at this time, will follow up on UA but will hold additional abx at this time -Hold all antihypertensives and diuretics at this time -Will give 500 mL of LR now and follow her repeat lactate, monitor intake and output q6h -Will continue on maintenance LR at 80 mL/hr x 2 bags after -Will obtain and FU on random cortisol level -BL SCD's and Home Eliquis for DVT PPX (2) Acute kidney injury: Plan: -Cr today at 2.6, baseline appears to be 1.0 -Likely due to severe dehydration -Still making urine -Hold antihypertensives and diuretics, continue IV hydration, monitor intake and output q6h for now (3) Hypomagnesemia: Plan: -Noted to be 0.6 today -Likely due to poor oral intake and continued diuretic use -Ordered 1 bag IV mag sulfate in the ED, will given another 4 bags on transfer -Monitor daily mag levels, likely extremely depleted, continue to monitor on tele (4) High anion gap metabolic acidosis: Plan: -AG noted to be 12 with bicarb of 17 -VBG pH at 7.23 -Lactate noted to be 4.5 --> 5.0 on 2 hour reflex -Likely all due to severe dehydration -Continue IV hydration with LR, follow am CMP (5) Elevated troponin: Plan: -Initial high sen trop at 16.5 -Patient is asymptomatic and without acute ECG changes -Likely due to demand and current OZIEL -Will follow 2 hour repeat and continue to monitor on tele (6) Hypocalcemia: Plan: -Initial calcium at 6.3 with ionized calcium at 0.83 -Likely multifactorial including current cancer, diuretic use, and poor oral intake -S/P 1 gm IV calcium gluconate in the ED -Monitor on tele and monitor am ionized calcium level (7) Breast cancer metastasized to bone: Plan: -Follows with Dr. Montoya, consult placed -Spoke with Dr. Montoya, appreciate her help, she agrees with holding oral chemotherapy in the acute phase of illness (8) (HFpEF) heart failure with preserved ejection fraction: Plan: -Currently dehydrated -Hold diuretics -Monitor volume status with IV hydration (9) Diabetes: Plan: -Hold metformin -Monitor BSG q6h for now, goal is 110-140 -Hold basal insulin for now with poor oral intake and OZIEL to avoid hypoglycemia -Will start with CF of 50 q6h for now, adjust as needed (10) Left leg DVT: Plan: -Previous hx in 2021 -Will continue BID Eliquis but reducing the dose for now with her OZIEL to 2.5 mg PO BID (11) Discharge of eye, right: Plan: -Has been ongoing over the past week -No conjunctival injection, swelling/erythema surrounding the eye or sinus tenderness -Likely due to allergies at this time -Will start with warm compresses and prn lubricated eye drops Plan The patient was discussed with Dr. Sanz at the time of the admission History of Present Illness Chief Complaint: Weakness Primary Care Provider: Crystal Shelley MD Yamel is a 66 year old female with a PMH significant for metastatic breast cancer currently on Xeloda and fermara (Follows with Dr. Montoya), HTN, HFpEF (LVEF of 65-70% as of 09/2021), DM, Previous PE on Eliquis, and BPPV who presented to [facility] ED on 06/21/22 due to weakness. In the ED the patient was noted to be hypotensive at 69/49 and tachycardic at 104 but otherwise stable. Labs were significant for an MCV of 106, INR of 1.5, VBG pH of 7.23, pCO2 of 42, pO2 of 25, cr of 2.64 (baseline appears to be near 1.0), AG of 12 with bicarb of 17, magnesium of 0.6, calcium of 6.3, lactate of 4.5, initial high sen trop of 16.5, full respiratory biofire negative. CT of the head and cervical spine, CXR, and pelvis xray were negative for acute trauma. Prior to admission the patient was given 2L NSS, a dose of cefepime, 1gm IV mag sulfate, and 1 gm calcium gluconate. At the time of the exam the patient was lying in bed in no acute distress with her Sister/POA sitting bedisde, history was obtained from both. She has been having ongoing and progressive generalized weakness, poor oral intake, and ambulatory dysfunction over the past month. Her appetite has been poor due to her ongoing chemotherapy. She has experienced approximately 4 falls over the past 3 weeks. They have been occurring when she is sitting on a desiree and attempting to adjust herself or lean forward to grab something. She denies hitting her head during these falls but has continued to have pain around her coccyx since landing on her buttocks on her 3rd fall. She has been noting lightheadedness/dizziness with positional changes or standing/walking. She has baseline left foot drop since her ostomy placement but feels as though it has been exacerbated due to her acute weakness over the past month. She is currently using a cane for ambulation. She has been working with Dr. Barkley who recently reduced the dose of her Carvedilol from 12.5 mg BID to 6.25 mg BID but this has not helped. She had an infected right, anterior tooth extracted approximately 2 weeks ago. Her sister states that it was infected and she completed a course of oral antibiotics but she is unsure which one. She denies ongoing pain or drainage at the surgical site. Approximately 1 week ago she started to develop green drainage from her right eye, she denies any irritation or vision changes. She also denies any recent fevers, chills, facial or sinus pain. She has had on ostomy since her partial colectomy after a perforated case of diverticulitis multiple years ago. She denies a change in the amount, consistency, and frequency of her ostomy output. She denies recent dysuria hematuria, LE swell ing. She did take her am dose of lasix prior to going to her PCP's this am. Her PCP sent her to the ED to be evaluated due to her acute ill state. She is a full code and would want her sister to make medical decisions for her if she cannot make them herself. Please refer to Dr. Sanz's attestation for any changes to the treatment plan Allergies Allergy/AdvReac Type Severity Reaction Status Date / Time aspirin Allergy Mild hives Verified 06/21/22 09:53 ibuprofen Allergy Mild hives Verified 06/21/22 09:53 tamoxifen Allergy Unknown temporary Verified 06/21/22 09:53 left eye vision loss Home Medications Medication Instructions Recorded Confirmed Type acetaminophen 500 mg tablet 500 mg PO Q6H PRN Pain 04/13/20 06/21/22 History (Tylenol Extra Strength) capecitabine 500 mg tablet 2,000 mg PO BID 10/04/20 06/21/22 History paroxetine HCl 30 mg tablet (Paxil) 30 mg PO QAM #90 tabs 09/30/21 06/21/22 Rx furosemide 40 mg tablet 40 mg PO QAM #90 tabs 10/11/21 06/21/22 Rx carvedilol 12.5 mg tablet 6.25 mg PO BID #180 tabs 10/13/21 06/21/22 Rx potassium chloride 20 mEq 20 meq PO QAM #90 tabs 11/29/21 06/21/22 Rx tablet,extended release losartan 25 mg tablet 25 mg PO QPM 12/13/21 06/21/22 History metformin 1,000 mg tablet 1,000 mg PO BID #180 tabs 12/13/21 06/21/22 Rx omeprazole 20 mg capsule,delayed 20 mg PO QAM 12/13/21 06/21/22 History release gabapentin 300 mg capsule 300 mg PO .COMPLEX #360 caps 02/16/22 06/21/22 Rx fulvestrant 250 mg/5 mL 500 mg (10 mL) IM ONCE 3 doses #10 03/14/22 06/21/22 Rx intramuscular syringe mL atorvastatin 10 mg tablet 10 mg PO QPM #90 tabs 03/21/22 06/21/22 Rx apixaban 5 mg tablet (Eliquis) 5 mg PO BID DVT #180 tabs 05/01/22 06/21/22 Rx Calcium 600 + D(3) 1 tab PO DAILY 06/21/22 06/21/22 History magnesium oxide 400 mg (241.3 mg 400 mg PO BID #0 tabs 06/23/22 Rx magnesium) tablet Past Med/Surg History Medical History Abnormal CT scan recent CT @ [place] w/ evidence 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 Barkley Chronic systolic CHF (congestive heart failure), NYHA class [address] 2018 (after diverticular perforation complications) Depression Difficult intravenous access difficult IV access Left arm Diverticular disease DM type 2 (diabetes mellitus, type 2) NIDDM Encounter for pre-operative examination Hyperlipidemia Left leg DVT started on eliquis. repeat doppler in 07/2021. Lumbar disc herniation with radiculopathy LV dysfunction Metastatic breast cancer hx chemo, radiation + surgery Morbid obesity PAC (premature atrial contraction) h/o PVC (premature ventricular contraction) h/o Surgical History H/O bilateral mastectomy denies limb restriction History of cardiac cath 2017 - [place] - cardiomyopathy - no stents/angioplasty History of humerus fracture (03/26/20) with open reduction and internal fixation due to pathological fracture (Dr. Gillette) History of hysterectomy History of intestinal surgery History of lumbar laminectomy History of surgery for malignant neoplasm 2017 removal of substernal mass + radiation Family History Mother Breast cancer Sister Breast cancer Father Myocardial infarction Prostate cancer Other Cancer Heart disease Hypertension Denies family history of Ovarian cancer Colorectal cancer Social History Smoking Status: Current every day smoker Tobacco Type: Cigarettes Age Started Using Tobacco: 15; Cigarettes Per Day: 3/4 pack per day; Second Hand Exposure: No; Do You Dip or Chew Tobacco: No; Hx Alcohol Use: No Hx Substance Use: No Preferred Language: Bur[place]ian Communication Ability: Effective Visual Impairment: No Limitations Lead Shipper Required: No Beliefs That Will Affect Care: None marital status: Single Current Living Situation: Alone current occupational status: retired How many Children do You have: 0 Feels Safe at Home: Yes Childhood Exposure to Second-Hand Smoke: No Diet: regular caffeine: Yes Dental Care, Regularly: Yes Physical Activity Frequency: Does not Exercise Seatbelt Use: never Sunscreen Use: Yes Assistive Devices: Cane and Denture - Upper Physical Exam Physical Exam: Physical Exam: General: In no acute distress, stated age, ill appearing but non-toxic HEENT: Normocephalic, atraumatic, no scleral icterus or conjunctival injection, pupils around round, symmetrical, and reactive to light, green discharge noted on the edges of the right eye, patient is non-tender to palpation over the frontal and maxillary sinuses, dry mucus membranes, no drainage or irritation noted at the recent tooth extraction site, trachea midline, no thyromegaly Chest/Pulm: No respiratory distress, symmetrical chest expansion, clear breath sounds throughout Cardiac: RRR, no murmurs noted Abdomen: Negative for ascites and bruising, ostomy located in the LLQ without signs of surrounding infection, currently with a mild amount of brown/green discharge, normoactive bowel sounds, soft, non-tender to palpation throughout Musculoskeletal: No acute trauma on exam, patient with baseline LUE weakness from previous elbow trauma/surgery and baseline left foot drop Extremities: Radial, dorsalis pedis, and posterior tibial pulses are intact and symmetrical, no edema noted in the BL LE's Skin: Warm, dry, no rashes , lesions, or scars noted Neuro: Alert and oriented to person, place, month, year, and president, no focal defects, CN II-XII tested and intact, no tremors noted Psych: No acute distress, calm and cooperative during the exam Results & Data Results & Data Vital Signs (Past 12 Hours) Vital Signs Temp Pulse Pulse Resp BP BP O2 Del Method 06/21/22 12:37 86 18 90/55 L 06/21/22 11:51 86 06/21/22 11:41 104 H 18 104/75 06/21/22 11:23 36.2 C L 18 69/49 L Room Air Laboratory Results Abnormal lab results 06/21/22 06/21/22 06/21/22 Range/Units 12:04 12:04 12:04 RBC 3.34 L (4.20-5.40) M/uL Hct 35.7 L (37.0-47.0) % MCV 106.9 H (80.0-100.0) fL MCH 35.9 H (25.0-34.0) pg RDW Std Deviation 76.5 H (36.4-46.3) fL RDW Coeff of Bradford 19.6 H (11.5-14.5) % Neut # (Auto) 6.84 H (1.40-6.50) K/uL [place] # (Auto) 0.83 H (0.11-0.59) K/uL PT (9.0-12.0) Seconds INR (0.9-1.1) APTT (21.0-31.0) Seconds VBG pH (7.36-7.41) Carbon Dioxide 17 L (21-32) mmol/L Anion Gap 12 H (3-11) BUN 28 H (6-23) mg/dl Creatinine 2.64 H (0.6-1.2) mg/dl Glucose 110 H (70-99(Fasting)) mg/dl Lactate 4.5 H* (0.4-2.0) mmol/L Calcium 6.3 L (8.6-10.3) mg/dl Magnesium 0.6 L* (1.7-2.4) mg/dl Troponin I High Sens 16.5 H (0-14) pg/ml 06/21/22 06/21/22 Range/Units 12:04 12:04 RBC (4.20-5.40) M/uL Hct (37.0-47.0) % MCV (80.0-100.0) fL MCH (25.0-34.0) pg RDW Std Deviation (36.4-46.3) fL RDW Coeff of Bradford (11.5-14.5) % Neut # (Auto) (1.40-6.50) K/uL [place] # (Auto) (0.11-0.59) K/uL PT 16.1 H (9.0-12.0) Seconds INR 1.5 H (0.9-1.1) APTT 36.2 H (21.0-31.0) Seconds VBG pH 7.23 L (7.36-7.41) Carbon Dioxide (21-32) mmol/L Anion Gap (3-11) BUN (6-23) mg/dl Creatinine (0.6-1.2) mg/dl Glucose (70-99(Fasting)) mg/dl Lactate (0.4-2.0) mmol/L Calcium (8.6-10.3) mg/dl Magnesium (1.7-2.4) mg/dl Troponin I High Sens (0-14) pg/ml Diagnostic Findings Chest X-Ray 06/21/22 11:27 XR chest 1V portable CLINICAL HISTORY: Sepsis TECHNIQUE: Single frontal radiograph of the chest was obtained. Comparison: Comparison is made to chest radiograph 11/06/2019 FINDINGS: No lines and tubes are seen. Left axillary surgical clips are seen. Cardiomegaly is noted. The aortic arch is calcified. The lungs are clear. No evidence of pleural effusion or pneumothorax. Orthopedic fixation hardware is seen about the left distal humerus. IMPRESSION: No acute abnormalities and in particular no radiographic evidence of pneumonia. ACT 112: Negative or not required by law. Electronically signed by: Tucker Johnson M.D. 06/21/2022 11:[address] 06/21/22 11:36 CT SCAN OF THE CERVICAL SPINE CLINICAL HISTORY: Fall. History of breast cancer. COMPARISON STUDY: PET/CT dated 02/22/2022. TECHNIQUE: CT scan of the cervical spine is performed from the skull base to the upper thoracic spine. Images are reviewed in the axial, sagittal, and coronal planes. IV contrast was not administered for this examination. A dose lowering technique was utilized adhering to the principles of ALARA. FINDINGS: Skeletal structures: The skeletal structures are osteopenic. There is no evidence of fracture or subluxation involving the cervical spine. Vertebral body height and alignment are maintained. There is straightening of the cervical lordosis. Anterior osteophytes are seen throughout. The odontoid process and lateral masses are intact. The atlantoaxial articulation is preserved noting productive degenerative change. The spinous processes appear intact. A large osteoblastic lesion body of T1 is consistent with patient's known bony metastatic disease. A tiny sclerotic focus in the body of C4 may also represent metastatic disease. Osteoblastic lesions are also seen within the right transverse process of T3 and the right posterior fourth rib. Intervertebral discs: There is moderate to severe disc space narrowing at C5-C6 and C6-C7. Mild to moderate narrowing is seen at the remaining cervical levels. Central canal: Posterior disc osteophyte complexes are seen at all cervical levels between C3-C4 and C7-T1. This likely contributes to multilevel acquired compromise of the central canal. Soft tissues: The prevertebral and paraspinous soft tissues are within normal limits. The thyroid gland is heterogeneous. There is atherosclerotic calcification of the carotid bulbs. Calvarium: The visualized calvarium at the skull base appears intact. Osteoblastic metastatic disease is seen at the clivus. Brain parenchyma: Partially visualized brain parenchyma at the skull base is within normal limits. Sinuses and mastoids: The visualized paranasal sinuses are clear. The mastoid air cells are well pneumatized. Lung apices: Emphysematous change is noted at the apices. Apical lung parenchyma is otherwise clear as imaged. IMPRESSION: 1. There is no evidence of fracture or subluxation involving the cervical spine. 2. Osteopenia and spondylotic change as above. 3. Osteoblastic metastatic disease as above. This was better assessed on the 02/22/2022 PET examination. ACT 112: Negative or not required by law. Electronically signed by: Curtis Soriano M.D. 06/21/2022 12:[address] 06/21/22 11:36 CT SCAN OF THE BRAIN WITHOUT IV CONTRAST CLINICAL HISTORY: Fall. COMPARISON STUDY: CT of the brain dated 05/06/2018. TECHNIQUE: Unenhanced axial CT scan of the brain is performed from the vertex to the skull base. A dose lowering technique was utilized adhering to the principles of ALARA. CT DOSE: 1014.10 mGy.cm FINDINGS: Brain parenchyma: There is age-related involutional change noting mild subcor tical and periventricular microangiopathic disease. There is no hemorrhage, mass effect, or evidence of acute territorial ischemia by CT criteria. Eldridge-white matter differentiation is preserved. No extra-axial fluid collection is seen. Ventricles, sulci, cisterns: Prominent secondary to involutional change. Intracranial vasculature: There is atherosclerotic calcification of the cavernous carotid arteries. Calvarium: The skeletal structures are osteopenic. No depressed calvarial fracture is identified. Sinuses and mastoids: The visualized paranasal sinuses are clear. The mastoid air cells are well pneumatized. Orbits: The bony orbits are grossly intact. IMPRESSION: There is no hemorrhage, mass effect, or evidence of acute territorial ischemia by CT criteria. ACT 112: Negative or not required by law. Electronically signed by: Curtis Soriano M.D. 06/21/2022 12:24 PM Pelvis X-Ray 06/21/22 11:36 XR pelvis 1-2V routine CLINICAL HISTORY: fall TECHNIQUE: A single frontal view of the pelvis was obtained. Comparison: Comparison is made to radiograph of 06/27/2021 FINDINGS: There is no evidence of an acute fracture. Left hip total arthroplasty is seen with chronic bony fragments about the hip joint. Extensive degenerative changes seen in the right hip. No soft tissue abnormality is seen. IMPRESSION: No evidence of acute osseous injury. ACT 112: Negative or not required by law. Electronically signed by: Tucker Johnson M.D. 06/21/2022 11:53 AM ECG Additional Comments: Normal sinus rhythm with sinus arrhythmia Low voltage QRS When compared with ECG of 06-NOV-2019 08:14, Questionable change in QRS axis Confirmed by Cr Alcantar ([id number]) on 06/21/2022 1:36:31 PM Code Status & VTE Plan Code Status Full code VTE Prophylaxis Plan VTE Prophylaxis will be ordered: Yes Supervising Physician Co-Signing Physician Notes I personally saw and examined the patient. I verified all lemus points and agree with Michael Jenkins PA-C with the following exceptions and/or additions: 66 year old female presents to the ER with progressive weakness, poor oral intake and ambulatory dysfunction. No change in ostomy output. O/E HS RRR, no murmurs, Chest CTAB, Abdo SNT, brown liquid ostomy output A/P Acute hypotension - suspect due to anti-hypertensives in setting of reduced oral intake. No infective source found on admission. Stop all anti-hypertensives at this time. Hypomagnesemia - Mg level 0.6 on admission. Mg sulfate 5g IV. Hypocalcemia - no specific sign/symptoms other than generalized weakness. Calcium gluconate 3g IV total. Vitamin D level and PTH with AM labs. PG Care Time/CCT Total # of Minutes Spent Total Time Spent with Patient: Total time spent is greater than 50% in coordination of care (as documented) at patient's floor/unit and/or counseling patient: Coding [place] [address] INT INP/OBS CARE 3/75MIN Patient Type Established Medical Decision Making High Complexity Diagnoses Hypotension I95.9 Acute kidney injury N17.9 Hypomagnesemia E83.42 High anion gap metabolic acidosis E87.29 Elevated troponin R77.8 Hypocalcemia E83.51 Breast cancer metastasized to bone C50.919; C79.51 (HFpEF) heart failure with preserved ejection fraction I50.30 Diabetes E11.9 Left leg DVT I82.402 Discharge of eye, right H57.89
[2022-06-21] MEDS ORDERED: LACTATED RINGER'S 500 ML IV ONE (14:13)
[2022-06-21] MEDS ORDERED: ARTIFICIAL TEARS OP PRN (14:48)
[2022-06-21] MEDS ORDERED: GLUCOSE 40% GEL 15 GM TUBE PO PRN (15:06)
[2022-06-21] MEDS ORDERED: CARBOHYDRATES FOR HYPOGLYCEMIA PO PRN (15:06)
[2022-06-21] MEDS ORDERED: DEXTROSE 50% 50 ML SYRINGE IV PRN (15:06)
[2022-06-21] MEDS ORDERED: GLUCOSE 10 TAB/TUBE PO PRN (15:06)
[2022-06-21] MEDS ORDERED: GLUCAGON FOR INJ 1 MG VIAL SQ PRN (15:06)
[2022-06-21 15:54] LABS: Appearance Urine Clear (Clear); Bacteria Urine Automated Negative (Negative); Bilirubin Urine Negative (Negative); Blood Urine Negative (Negative); Color Urine Yellow; Glucose Urine UA Negative (Negative); Ketones Urine Negative (Negative); Leukocyte Esterase Urine Trace (Negative); Nitrite Urine Negative (Negative); Protein Urine Negative (Negative); RBC Urine Automated 0-4 /hpf (0-4); Specific Gravity Urine 1.012 (1.000-1.030); Urobilinogen Urine Negative (Negative)
[2022-06-21] MEDS ORDERED: LACTATED RINGER'S 1,000 ML IV SCH (16:55)
--- NOTE | 2022-06-21 17:01 | Oncology Consultation ---
Date of Consultation June 21, 2022 Assessment & Plan (1) Breast cancer metastasized to bone: (2) Acute kidney injury: (3) Elevated lactic acid level: (4) Hypocalcemia: Plan Very pleasant female with history of metastatic breast cancer currently on Xeloda, monthly IM fulvestrant and Xgeva every 3 months. Presented with worsening lower extremity weakness, poor appetite and dehydration. Found to be hypotensive and labs showed multiple electrolyte abnormalities as well as OZIEL -Agree with electrolyte replacement and IV fluids. -Agree with infectious work-up -Recommend brain MRI to rule out brain metastasis (will need Ativan prior to MRI due to claustrophobia). May need reimaging of spine if lower extremity weakness does not improve. -Hold Xeloda for now until acute issues resolve Thank you for this consult. Oncology will continue following patient while in the hospital. Please feel free to call if you have any further questions History of Present Illness Reason for Consultation: Breast cancer Attending Physician: Perez Sanz MD History of Present Illness Ms. Ojeda is a pleasant 66-year-old female with metastatic breast cancer currently on Xeloda 2000 mg p.o. twice daily x14 days every 21-day cycle which she started on 06/17/2020. She is also on Monthly IM fulvestrantand Xgeva for bone metastasis. She presented to the ED at [facility] with progressively worsening bilateral lower extremity weakness. She was noted to be hypotensive in the ER with blood pressure of 69/49 and tachycardic with a heart rate of 104. Labs also revealed OZIEL with creatinine of 2.64, hypocalcemia with calcium of 6.3, and lactic acidosis with lactate level of 4.5. Per patient, she states that she has had poor appetite, lower extremity weakness and dizziness over the past 3 weeks. Has had multiple falls ever since then. Has been working with her electrocardiogram technician to adjust blood pressure medications. Denies fever, chills, abdominal pain, nausea, vomiting or any other issues Allergies Allergy/AdvReac Type Severity Reaction Status Date / Time aspirin Allergy Mild hives Verified 06/21/22 09:53 ibuprofen Allergy Mild hives Verified 06/21/22 09:53 tamoxifen Allergy Unknown temporary Verified 06/21/22 09:53 left eye vision loss Home Medications Medication Instructions Recorded Confirmed Type acetaminophen 500 mg tablet 500 mg PO Q6H PRN Pain 04/13/20 06/21/22 History (Tylenol Extra Strength) capecitabine 500 mg tablet 2,000 mg PO BID 10/04/20 06/21/22 History paroxetine HCl 30 mg tablet (Paxil) 30 mg PO QAM #90 tabs 09/30/21 06/21/22 Rx furosemide 40 mg tablet 40 mg PO QAM #90 tabs 10/11/21 06/21/22 Rx carvedilol 12.5 mg tablet 6.25 mg PO BID #180 tabs 10/13/21 06/21/22 Rx potassium chloride 20 mEq 20 meq PO QAM #90 tabs 11/29/21 06/21/22 Rx tablet,extended release losartan 25 mg tablet 25 mg PO QPM 12/13/21 06/21/22 History metformin 1,000 mg tablet 1,000 mg PO BID #180 tabs 12/13/21 06/21/22 Rx omeprazole 20 mg capsule,delayed 20 mg PO QAM 12/13/21 06/21/22 History release gabapentin 300 mg capsule 300 mg PO .COMPLEX #360 caps 02/16/22 06/21/22 Rx fulvestrant 250 mg/5 mL 500 mg (10 mL) IM ONCE 3 doses #10 03/14/22 06/21/22 Rx intramuscular syringe mL atorvastatin 10 mg tablet 10 mg PO QPM #90 tabs 03/21/22 06/21/22 Rx apixaban 5 mg tablet (Eliquis) 5 mg PO BID DVT #180 tabs 05/01/22 06/21/22 Rx Calcium 600 + D(3) 1 tab PO DAILY 06/21/22 06/21/22 History Patient History Medical History Abnormal CT scan recent CT @ [facility] w/ evidence 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 Barkley Chronic systolic CHF (congestive heart failure), NYHA class [address] 2017 (after diverticular perforation complications) Depression Difficult intravenous access difficult IV access Left arm Diverticular disease DM type 2 (diabetes mellitus, type 2) NIDDM Encounter for pre-operative examination Hyperlipidemia Left leg DVT started on eliquis. repeat doppler in 07/2021. Lumbar disc herniation with radiculopathy LV dysfunction Metastatic breast cancer hx chemo, radiation + surgery Morbid obesity PAC (premature atrial contraction) h/o PVC (premature ventricular contraction) h/o Surgical History H/O bilateral mastectomy denies limb restriction History of cardiac cath 2017 - [place] - cardiomyopathy - no stents/angioplasty History of humerus fracture (03/26/20) with open reduction and internal fixation due to pathological fracture (Dr. Gillette) History of hysterectomy History of intestinal surgery History of lumbar laminectomy History of surgery for malignant neoplasm 2017 removal of substernal mass + radiation Family History Mother Breast cancer Sister Breast cancer Father Myocardial infarction Prostate cancer Other Cancer Heart disease Hypertension Denies family history of Ovarian cancer Colorectal cancer Social History Smoking Status: Current every day smoker Tobacco Type: Cigarettes Age Started Using Tobacco: 15; Cigarettes Per Day: 3/4 pack per day; Second Hand Exposure: No; Do You Dip or Chew Tobacco: No; Tobacco Cessation Education Requested by Patient: No Hx Alcohol Use: No Hx Substance Use: No Preferred Language: Bulgarian Communication Ability: Effective Visual Impairment: No Limitations Housekeeping Manager Required: No Beliefs That Will Affect Care: None marital status: Single Current Living Situation: Alone current occupational status: retired How many Children do You have: 0 Other Information That Helps Us Care for You: No Feels Safe at Home: Yes Safety Concerns: Feels Safe At This Time Childhood Exposure to Second-Hand Smoke: No Diet: regular caffeine: Yes Dental Care, Regularly: Yes Physical Activity Frequency: Does not Exercise Seatbelt Use: never Sunscreen Use: Yes Assistive Devices: Cane and Denture - Upper Assistive Devices Comment: uses upper and lower dentures, only upper here Results & Data Vital Signs (Past 12 Hours) Vital Signs Temp Pulse Pulse Resp BP BP Pulse Ox 06/21/22 16:00 92 H 18 94/50 L 06/21/22 15:53 92 H 06/21/22 14:00 82 18 107/56 L 95 06/21/22 12:37 86 18 90/55 L 06/21/22 11:51 86 06/21/22 11:41 104 H 18 104/75 05/17/23 11:23 36.2 C L 18 69/49 L O2 Del Method 06/21/22 16:00 06/21/22 15:53 06/21/22 14:00 Room Air 06/21/22 12:37 06/21/22 11:51 06/21/22 11:41 06/21/22 11:23 Room Air
[2022-06-21] MEDS: MAGNESIUM SULFATE / D5W 1 GM/100 ML BAG IV SCH ×4 (17:23→23:57)
[2022-06-21] MEDS ORDERED: LORazepam 2 MG/1 ML VIAL IV ONE ×2 (17:37→22:00)
[2022-06-21] MEDS: INSULIN ASPART PER UNIT CHARGE SC SCH ×2 (17:45→21:09)
[2022-06-21 19:49] LABS: BUN Creatinine Ratio 11.7 (10-20); Creatinine Clr Calc Pharmacy 26.3 ml/min; Est GFR (African American) 25.7 ml/min; Est GFR (Non-African American) 22.2 ml/min; Potassium 3.5 mmol/L (3.5-5.1)
[2022-06-21 20:17] LABS: Phosphorus 4.2 mg/dl (2.5-4.9)
[2022-06-21] MEDS ORDERED: STAT IV STA ×3 (20:21→21:42)
[2022-06-21] MEDS ORDERED: CALCIUM GLUCONATE 10% 1,000 MG in DEXTROSE 5% 50 ML IV ONE ×2 (20:21→22:00)
[2022-06-21] MEDS ORDERED: SODIUM BICARBONATE 8.4% 150 MEQ in DEXTROSE 5% 1,000 ML IV SCH (20:30)
[2022-06-21] MEDS ORDERED: APIXABAN 2.5 MG TAB PO SCH (21:00)
[2022-06-21] MEDS: GABAPENTIN 300 MG CAP PO SCH (21:16)
[2022-06-21] MEDS: ATORVASTATIN 10 MG TAB PO SCH (21:16)
[2022-06-22] MEDS: INSULIN ASPART PER UNIT CHARGE SC SCH ×4 (04:32→20:17)
[2022-06-22 07:25] LABS: Basophils # (auto) 0.02 K/uL (0-0.2); Basophils % (auto) 0.3 %; Eosinophils # (auto) 0.23 K/uL (0-0.50); Eosinophils % (auto) 3.6 %; Hematocrit (blood only) 30.9 % (37.0-47.0); Hemoglobin 10.7 g/dl (12.0-16.0); Immature Granulocytes # (auto) 0.08 K/uL (0.01-0.20); Immature Granulocytes % (auto) 1.3 %; Lymphocytes # (auto) 1.04 K/uL (1.2-3.4); Lymphocytes % (auto) 16.3 %; Mean Corpuscular Hemoglobin 35.7 pg (25.0-34.0); Mean Corpuscular Hgb Conc 34.6 g/dL (32.0-36.0); Mean Platelet Volume 9.5 fL (9.4-12.4); Monocytes # (auto) 0.43 K/uL (0.11-0.59); Monocytes % (auto) 6.8 %; Neutrophils # (auto) 4.57 K/uL (1.40-6.50); Neutrophils % (auto) 71.7 %; Platelet Count 199 K/uL (130-400); RDW Coefficient of Variation 19.2 % (11.5-14.5); RDW Standard Deviation 72.6 fL (36.4-46.3); White Blood Count 6.37 K/ul (4.8-10.8)
[2022-06-22 07:41] LABS: Albumin Globulin Ratio 1.3 (0.9-2); Albumin Level 2.9 gm/dl (3.4-5.0); BUN Creatinine Ratio 13.3 (10-20); Bilirubin,Total 0.9 mg/dl (0.2-1.0); Calcium 6.8 mg/dl (8.6-10.3); Creatinine Clr Calc Pharmacy 35.8 ml/min; Est GFR (African American) 36.6 ml/min; Est GFR (Non-African American) 31.6 ml/min; Globulin 2.3 gm/dl (2.5-4.0); Magnesium 2.1 mg/dl (1.7-2.4); Potassium 3.3 mmol/L (3.5-5.1); Total Protein 5.2 gm/dl (6.0-8.3)
[2022-06-22 07:58] LABS: INR 1.3 (0.9-1.1); Prothrombin Time 14.4 Seconds (9.0-12.0)
[2022-06-22] MEDS: PARoxetine HCL 10 MG TAB PO SCH (08:53)
[2022-06-22] MEDS: PANTOprazole 40 MG TAB PO SCH (08:53)
[2022-06-22] MEDS: GABAPENTIN 300 MG CAP PO SCH ×2 (08:53→20:16)
[2022-06-22] MEDS: NSS + 20MEQ KCL 20 MEQ/1,000 ML BAG IV SCH ×2 (08:55→18:23)
[2022-06-22] MEDS: APIXABAN 5 MG TABLET PO SCH ×2 (09:03→20:16)
[2022-06-22] MEDS ORDERED: POTASSIUM CHLORIDE CRTAB 20 MEQ TABCR PO STA (10:31)
[2022-06-22] MEDS ORDERED: LORazepam 1 MG TAB PO STA (12:15)
[2022-06-22] MEDS ORDERED: GADOBUTROL 65ML VIAL IV ONE (13:28)
--- NOTE | 2022-06-22 14:09 | Magnetic Resonance Report ---
MR brain wo/w con HISTORY: 66 years-old Female active cancer, monitor for mets acute head trauma status post fall. Fol low-up study in a patient with history of metastatic breast cancer COMPARISON: PET CT 02/22/2022, head CT 06/21/2022, brain MRI 05/06/2018 TECHNIQUE: Multiplanar multisequence MRI of the brain was obtained without the use of IV contrast. FINDINGS: Concrete Mixer localizer images demonstrate no gross extracranial abnormality. Motion degraded exam. Scattered areas of marrow replacement are noted within the calvarium, most pronounced in the frontal and parie joselyn bones. There is no restricted diffusion. No acute intracranial hemorrhage, midline shift, abnorma l extra-axial collection, hydrocephalus or intra-axial mass. Chronic right periventricular lacunar in farct again noted. Involutional changes with mild T2/FLAIR hyperintense foci throughout the white mat ter. Study is motion degraded. Cerebral venous sinuses and major arterial flow voids appear patent. Unremarkable orbits. Mastoid air cells and paranasal sinuses are clear. No abnormal intracranial enhancement. IMPRESSION: 1. Osteoblastic skeletal metastasis throughout the calvarium. 2. No acute intracranial abnormality. 3. The study is motion degraded, however there is no abnormal enhancement identified to suggest intra -axial metastatic disease. ACT 112: Negative or not required by law. The above report was generated using voice recognition software. It may contain grammatical, syntax o r spelling errors. Electronically signed by: Dayne Gordon M.D. 06/22/2022 2:08 PM
[2022-06-22] MEDS ORDERED: ACETAMINOPHEN 325 MG TAB PO PRN (14:58)
--- NOTE | 2022-06-22 15:08 | Hospitalist Progress Note ---
Date of Service June 22, 2022 Assessment & Plan (1) Hypotension: Plan: Resolved with IV fluids. Diuretic remains on hold. (2) Acute kidney injury: Plan: Improving with IV fluids. Continue to monitor intake and output. Serial labs. Diuretic is on hold (3) Hypomagnesemia: Plan: Corrected with parenteral replacement. Serial labs (4) High anion gap metabolic acidosis: Plan: Resolved with IV hydration. No sepsis (5) Elevated troponin: Plan: Minimal. No evidence of acute coronary syndrome. No chest pain. No acute EKG changes (6) Hypocalcemia: Plan: Improved with IV calcium administered on admission. Serial labs (7) Breast cancer metastasized to bone: Plan: Appreciate oncology consultation and recommendations. 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 (8) (HFpEF) heart failure with preserved ejection fraction: Plan: Stable. Diuretics are temporarily on hold. (9) Diabetes: Plan: ADA diet. Metformin is on hold. Sliding scale coverage as needed. (10) Left leg DVT: Plan: Previous hx in 2021 . Currently on Eliquis therapy (11) Discharge of eye, right: Plan: Has been ongoing over the past week. No conjunctival injection, swelling/er ythema surrounding the eye or sinus tenderness . Likely due to allergies at this time . Improved with warm compresses and prn lubricated eye drops Plan Probable discharge to home tomorrow, June 23 Admission and Anticipated Discharge Date Admission Date: June 21, 2022 Subjective Alert and oriented. Creatinine improved to 1.6 with IV fluids. Troponin is minimally elevated without any evidence of acute coronary syndrome. Magnesium corrected to 2.1. Brain MRI scan reveals call Verrier metastases but no brain mets. She remains on IV fluids with potassium replacement. Metformin and diuretics are on hold. Probably home tomorrow, June 23 Review of Systems Review of Systems: Constitutional-no fever or chills ENT-no blurred vision, no double vision, no epistaxis, no sore throat Respiratory-no cough, no wheezing, no shortness of breath Cardiac-no palpitations, no chest pain, no syncope GI-no nausea, vomiting, diarrhea, melena, hematochezia -no urinary retention, no urinary incontinence, no dysuria, no hematuria Musculoskeletal-no joint pain, no muscle tenderness Skin-no bruising, no rashes, no pruritus Neuro-no isolated weakness, no paresthesia, no weakness Psych-no depression, no anxiety Physical Exam Physical Exam: General-alert and oriented x3, no fevers, no chills HEENT-head atraumatic and normocephalic, pupils equal and reactive to light, extraocular muscles intact Neck-no lymphadenopathy or thyromegaly, trachea midline Chest-clear to auscultation percussion. No rales wheezing or rhonchi Cardiac-regular rate and rhythm, normal S1 and S2 Abdomen-normal bowel sounds, nontender, no hepatosplenomegaly Extremities-no cyanosis, clubbing, or edema Neuro-cranial nerves II through XII intact, motor and sensory function within normal limits, strength symmetrical , no focal deficits Psych-normal affect, normal mood Results & Data Results & Data Vital Signs (Past 12 Hours) Vital Signs Temp Pulse Pulse Resp BP Pulse Ox O2 Del Method 06/22/22 11:20 36.5 C 89 17 97/45 L 90 Room Air 06/22/22 10:12 Room Air 06/22/22 07:55 75 06/22/22 07:44 36.7 C 83 17 96/49 L 90 Room Air Laboratory Results 06/22/22 06:47 06/22/22 06:47 PG Care Time/CCT Total # of Minutes Spent Total Time Spent with Patient: Total time spent is greater than 50% in coordination of care (as documented) at patient's floor/unit and/or counseling patient: Coding Level of Care Code 19183 SUB INP/OBS CARE 3/50MIN Diagnoses Hypotension I95.9 Acute kidney injury N17.9 Hypomagnesemia E83.42 High anion gap metabolic acidosis E87.29 Elevated troponin R77.8 Hypocalcemia E83.51 Breast cancer metastasized to bone C50.919; C79.51 (HFpEF) heart failure with preserved ejection fraction I50.30 Diabetes E11.9 Left leg DVT I82.402 Discharge of eye, right H57.89
[2022-06-22] MEDS: ATORVASTATIN 10 MG TAB PO SCH (20:16)
[2022-06-23] MEDS: INSULIN ASPART PER UNIT CHARGE SC SCH ×3 (02:28→16:32)
[2022-06-23] MEDS: NSS + 20MEQ KCL 20 MEQ/1,000 ML BAG IV SCH (03:25)
[2022-06-23 06:32] LABS: Basophils # (auto) 0.03 K/uL (0-0.2); Basophils % (auto) 0.5 %; Eosinophils % (auto) 3.5 %; Hematocrit (blood only) 29.2 % (37.0-47.0); Immature Granulocytes # (auto) 0.05 K/uL (0.01-0.20); Immature Granulocytes % (auto) 0.9 %; Lymphocytes # (auto) 0.94 K/uL (1.2-3.4); Lymphocytes % (auto) 16.6 %; Mean Corpuscular Hemoglobin 36.4 pg (25.0-34.0); Mean Corpuscular Hgb Conc 34.2 g/dL (32.0-36.0); Mean Corpuscular Volume 106.2 fL (80.0-100.0); Mean Platelet Volume 9.7 fL (9.4-12.4); Monocytes % (auto) 8.8 %; Neutrophils # (auto) 3.95 K/uL (1.40-6.50); Neutrophils % (auto) 69.7 %; Platelet Count 166 K/uL (130-400); RDW Coefficient of Variation 19.3 % (11.5-14.5); RDW Standard Deviation 73.9 fL (36.4-46.3); Red Blood Count 2.75 M/uL (4.20-5.40); White Blood Count 5.67 K/ul (4.8-10.8)
[2022-06-23 06:49] LABS: INR 1.4 (0.9-1.1); Prothrombin Time 15.4 Seconds (9.0-12.0)
[2022-06-23 06:55] LABS: Albumin Globulin Ratio 1.2 (0.9-2); Albumin Level 2.7 gm/dl (3.4-5.0); BUN Creatinine Ratio 13.7 (10-20); Bilirubin,Total 0.8 mg/dl (0.2-1.0); Calcium 6.5 mg/dl (8.6-10.3); Creatinine Clr Calc Pharmacy 51.4 ml/min; Est GFR (African American) 55.8 ml/min; Est GFR (Non-African American) 48.2 ml/min; Globulin 2.2 gm/dl (2.5-4.0); Magnesium 1.7 mg/dl (1.7-2.4); Potassium 4.3 mmol/L (3.5-5.1); Total Protein 4.9 gm/dl (6.0-8.3)
[2022-06-23 07:59] VITALS: O2SAT 90
[2022-06-23] MEDS: PARoxetine HCL 10 MG TAB PO SCH (08:54)
[2022-06-23] MEDS: GABAPENTIN 300 MG CAP PO SCH (08:54)
[2022-06-23] MEDS: PANTOprazole 40 MG TAB PO SCH (08:54)
[2022-06-23] MEDS: APIXABAN 5 MG TABLET PO SCH (08:54)
[2022-06-23] MEDS ORDERED: MAGNESIUM OXIDE 400 MG TAB PO SCH (10:15)
--- NOTE | 2022-06-23 12:13 | Hospitalist Progress Note ---
Date of Service June 23, 2022 Assessment & Plan (1) Hypotension: Plan: Resolved with IV fluids. Diuretic remains on hold. (2) Acute kidney injury: Plan: Resolved with IV fluids. Continue to monitor intake and output. Serial labs. Diuretic is on hold (3) Hypomagnesemia: Plan: Corrected with parenteral replacement. Level is drifting down again. Oral magnesium replacement started today, June 23. Serial labs (4) High anion gap metabolic acidosis: Plan: Resolved with IV hydration. No sepsis (5) Elevated troponin: Plan: Minimal. No evidence of acute coronary syndrome. No chest pain. No acute EKG changes . This appears to be due to demand ischemia (6) Hypocalcemia: Plan: Improved with IV calcium administered on admission. Serial labs (7) Breast cancer metastasized to bone: Plan: Appreciate oncology consultation and recommendations. 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 (8) (HFpEF) heart failure with preserved ejection fraction: Plan: Stable. Diuretics are temporarily on hold. (9) Diabetes: Plan: ADA diet. Metformin held on admission. Will restart today, June 23. Sliding scale coverage as needed. (10) Left leg DVT: Plan: Previous hx in 2021 . Currently on Eliquis therapy (11) Discharge of eye, right: Plan: Has been ongoing over the past week. No conjunctival injection, swelling/erythema surrounding the eye or sinus tenderness . Likely due to allergies at this time . Improved with warm compresses and prn lubricated eye drops Plan Either discharge to home or rehab facility after CM discusses with family and patient. Admission and Anticipated Discharge Date Admission Date: June 21, 2022 Subjective Alert and oriented. She has changed her mind several times regarding whether or not she will go to rehab. Renal function is back to baseline. Magnesium is down again to 1.7. Oral magnesium started. Potassium corrected to 4.3. She is medically stable overall but she is still needing quite a bit of assistance with ambulation Review of Systems Review of Systems: Constitutional-no fever or chills ENT-no blurred vision, no double vision, no epistaxis, no sore throat Respiratory-no cough, no wheezing, no shortness of breath Cardiac-no palpitations, no chest pain, no syncope GI-no nausea, vomiting, diarrhea, melena, hematochezia -no urinary retention, no urinary incontinence, no dysuria, no hematuria Musculoskeletal-no joint pain, no muscle tenderness Skin-no bruising, no rashes, no pruritus Neuro-no isolated weakness, no paresthesia, no weakness Psych-no depression, no anxiety Physical Exam Physical Exam: General-alert and oriented x3, no fevers, no chills HEENT-head atraumatic and normocephalic, pupils equal and reactive to light, extraocular muscles intact Neck-no lymphadenopathy or thyromegaly, trachea midline Chest-clear to auscultation percussion. No rales wheezing or rhonchi Cardiac-regular rate and rhythm, normal S1 and S2 Abdomen-normal bowel sounds, nontender, no hepatosplenomegaly Extremities-no cyanosis, clubbing, or edema Neuro-cranial nerves II through XII intact, motor and sensory function within normal limits, strength symmetrical , no focal deficits Psych-normal affect, normal mood Results & Data Results & Data Vital Signs (Past 12 Hours) Vital Signs Temp Pulse Pulse Resp BP Pulse Ox O2 Del Method 06/23/22 09:53 Room Air 06/23/22 09:50 100 H 06/23/22 07:58 36.8 C 107 H 18 99/64 L 90 Room Air 06/23/22 03:00 36.9 C 90 16 109/59 L 91 Room Air PG Care Time/CCT Total # of Minutes Spent Total Time Spent with Patient: Total time spent is greater than 50% in coordination of care (as documented) at patient's floor/unit and/or counseling patient: Coding Level of Care Code 79047 SUB INP/OBS CARE 3/50MIN Diagnoses Hypotension I95.9 Acute kidney injury N17.9 Hypomagnesemia E83.42 High anion gap metabolic acidosis E87.29 Elevated troponin R77.8 Hypocalcemia E83.51 Breast cancer metastasized to bone C50.919; C79.51 (HFpEF) heart failure with preserved ejection fraction I50.30 Diabetes E11.9 Left leg DVT I82.402 Discharge of eye, right H57.89
[2022-06-23] MEDS: metFORMIN HCL 500 MG TAB PO SCH ×2 (12:57→16:33)
--- NOTE | 2022-06-23 14:16 | Discharge Summary ---
Date of Service June 23, 2022 Admission HPI Per Admitting Provider Yamel is a 66 year old female with a PMH significant for metastatic breast cancer currently on Xeloda and fermara (Follows with Dr. Montoya), HTN, HFpEF (LVEF of 65-70% as of 09/2021), DM, Previous PE on Eliquis, and BPPV who presented to the [facility] ED on 06/21/22 due to weakness. In the ED the patient was noted to be hypotensive at 69/49 and tachycardic at 104 but otherwise stable. Labs were significant for an MCV of 106, INR of 1.5, VBG pH of 7.23, pCO2 of 42, pO2 of 25, cr of 2.64 (baseline appears to be near 1.0), AG of 12 with bicarb of 17, magnesium of 0.6, calcium of 6.3, lactate of 4.5, initial high sen trop of 16.5, full respiratory biofire negative. CT of the head and cervical spine, CXR, and pelvis xray were negative for acute trauma. Prior to admission the patient was given 2L NSS, a dose of cefepime, 1gm IV mag sulfate, and 1 gm calcium gluconate. At the time of the exam the patient was lying in bed in no acute distress with her Sister/POA sitting bedisde, history was obtained from both. She has been having ongoing and progressive generalized weakness, poor oral intake, and ambulatory dysfunction over the past month. Her appetite has been poor due to her ongoing chemotherapy. She has experienced approximately 4 falls over the past 3 weeks. They have been occurring when she is sitting on a desiree and attempting to adjust herself or lean forward to grab something. She denies hitting her head during these falls but has continued to have pain around her coccyx since landing on her buttocks on her 3rd fall. She has been noting lightheadedness/dizziness with positional changes or standing/walking. She has baseline left foot drop since her ostomy placement but feels as though it has been exacerbated due to her acute weakness over the past month. She is currently using a cane for ambulation. She has been working with Dr. Barkley who recently reduced the dose of her Carvedilol from 12.5 mg BID to 6.25 mg BID but this has not helped. She had an infected right, anterior tooth extracted approximately 2 weeks ago. Her sister states that it was infected and she completed a course of oral antibiotics but she is unsure which one. She denies ongoing pain or drainage at the surgical site. Approximately 1 week ago she started to develop green drainage from her right eye, she denies any irritation or vision changes. She also denies any recent fevers, chills, facial or sinus pain. She has had on ostomy since her partial colectomy after a perforated case of diverticulitis multiple years ago. She denies a change in the amount, consistency, and frequency of her ostomy output. She denies recent dysuria hematuria, LE swelling. She did take her am dose of lasix prior to going to her PCP's this am. Her PCP sent her to the ED to be evaluated due to her acute ill state. She is a full code and would want her sister to make medical decisions for her if she cannot make them herself. Please refer to Dr. Sanz's attestation for any changes to the treatment plan Principal Diagnosis Volume depletion, hypotension, acute kidney injury, hypomagnesemia, hypocalcemia, hypokalemia Discharge Exam General-alert and oriented x3, no fevers, no chills HEENT-head atraumatic and normocephalic, pupils equal and reactive to light, extraocular muscles intact Neck-no lymphadenopathy or thyromegaly, trachea midline Chest-clear to auscultation percussion. No rales wheezing or rhonchi Cardiac-regular rate and rhythm, normal S1 and S2 Abdomen-normal bowel sounds, nontender, no hepatosplenomegaly Extremities-no cyanosis, clubbing, or edema Neuro-cranial nerves II through XII intact, motor and sensory function within normal limits, strength symmetrical , no focal deficits Psych-normal affect, normal mood Discharge Data Allergies Allergy/AdvReac Type Severity Reaction Status Date / Time aspirin Allergy Mild hives Verified 06/21/22 09:53 ibuprofen Allergy Mild hives Verified 06/21/22 09:53 tamoxifen Allergy Unknown temporary Verified 06/21/22 09:53 left eye vision loss Consultations 06/21/22 13:55 ED Decision to Admit Stat 06/21/22 14:43 Consult Oncology Routine Ordered Studies 06/21/22 11:36 CT cervical spine wo con Stat CT head/brain wo con Stat 06/22/22 07:00 MRI Brain [MR brain wo/w con] Routine Hospital Course (1) Hypotension: Resolved with IV fluids. Diuretic remains on hold. Will restart at discharge (2) Acute kidney injury: Resolved with IV fluids. Continue to monitor intake and output. Serial labs. Diuretic is on hold . Will restart at discharge (3) Hypomagnesemia: Corrected with parenteral replacement. Level is drifting down again. Oral magnesium replacement started today, June 23. Serial labs (4) High anion gap metabolic acidosis: Resolved with IV hydration. No sepsis (5) Elevated troponin: Minimal. No evidence of acute coronary syndrome. No chest pain. No acute EKG changes . This appears to be due to demand ischemia (6) Hypocalcemia: Improved with IV calcium administered on admission. Serial labs (7) Breast cancer metastasized to bone: Appreciate oncology consultation and recommendations. 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 (8) (HFpEF) heart failure with preserved ejection fraction: Stable. Diuretics are temporarily on hold. Will restart at discharge (9) Diabetes: ADA diet. Metformin held on admission. Will restart today, June 23. Sliding scale coverage as needed. (10) Left leg DVT: Previous hx in 2021 . Currently on Eliquis therapy (11) Discharge of eye, right: Has been ongoing over the past week. No conjunctival injection, swelling/erythema surrounding the eye or sinus tenderness . Likely due to allergies at this time . Improved with warm compresses and prn lubricated eye drops Plan She agrees to discharge to [facility] today, June 23 Total Time Total Time Spent Total Time Spent (In Minutes): 45 minutes Discharge Plan Discharge Items Patient Disposition: Transfer Inpatient Rehab Fac Reason For Visit: WEAKNESS Discharge Diagnosis: Following depletion, hypotension, hypomagnesemia, hypocalcemia, hypokalemia, acute kidney injury, high anion gap metabolic acidosis, multiple falls Activity: Resume your previous activity Non-emergency contact: Primary Care Provider Call non-emergency contact if: you have any medication questions Follow-up/Referrals: Crystal Shelley MD [Primary Care Provider] - Diet: Carb Consistent or DM2 and Heart Healthy Addtl Attending Provider Instructions: Magnesium has been started as a supplement Pending Studies at Discharge: No Stand-Alone Forms: My [facility] Skilled Items Patient informed of condition?: Yes DNR: Yes Discharge Level of Care: Acute rehab Communicable Disease: No Discharge Prognosis: Stable Lines: None Urinary Catheter: No Medications and DC Order Prescriptions: New magnesium oxide 400 mg (241.3 mg magnesium) Tablet 400 mg PO BID Qty: 0 0RF Continued acetaminophen [Tylenol Extra Strength] 500 mg tablet 500 mg PO Q6H PRN (Reason: Pain) paroxetine HCl [Paxil] 30 mg tablet 30 mg PO QAM Qty: 90 3RF furosemide 40 mg tablet 40 mg PO QAM Qty: 90 3RF carvedilol 12.5 mg tablet 6.25 mg PO BID Qty: 180 3RF Rx Instructions: must administer with a meal/food potassium chloride 20 mEq tablet extended release 20 meq PO QAM Qty: 90 3RF metformin 1,000 mg tablet 1,000 mg PO BID Qty: 180 1RF gabapentin 300 mg capsule 300 mg PO .COMPLEX Qty: 360 1RF Rx Instructions: 300 mg PO QID (AT 6AM, 12PM, 4PM, AND 8PM) fulvestrant 250 mg/5 mL syringe 500 mg IM ONCE Qty: 10 0RF Rx Instructions: Pt states she has a loading dose and then every month after. atorvastatin 10 mg tablet 10 mg PO QPM Qty: 90 1RF Eliquis 5 mg tablet 5 mg PO BID Qty: 180 3RF capecitabine 500 mg tablet 2,000 mg PO BID Calcium 600 + D(3) 1 tab PO DAILY losartan 25 mg tablet 25 mg PO QPM omeprazole 20 mg capsule,delayed release(DR/EC) 20 mg PO QAM Discharge Orders: Discharge Order (Routine); Ordered 06/23/22 Ordered By: Devante Pascual Admission Data Admit Date/Time: 06/21/22 14:12 Attending Provider: Devante Pascual Admit Provider: Perez Sanz Primary Care Provider: Crystal Shelley Other Providers: Perez Sanz ; Selene Montoya ; [facility] ; [facility] Coding Level of Care Code 62440 INP/OBS DISCH >30 MIN Diagnoses Hypotension I95.9 Acute kidney injury N17.9 Hypomagnesemia E83.42 High anion gap metabolic acidosis E87.29 Elevated troponin R77.8 Hypocalcemia E83.51 Breast cancer metastasized to bone C50.919; C79.51 (HFpEF) heart failure with preserved ejection fraction I50.30 Diabetes E11.9 Left leg DVT I82.402 Discharge of eye, right H57.89
[2022-06-23 15:58] VITALS: BP 96/58; TEMP 99.3
[2022-06-23 16:25] VITALS: PULSE 97
== END 2022-06-23 17:20 | DRG 641 ==
LOC: ED 11:21 → SUATTDRO 14:12 → 2E 14:12

== ENCOUNTER 2022-11-08 15:57 | Inpatient (IN) ==
[2022-11-08] MEDS ORDERED: SODIUM CHLORIDE 0.9% 1,000 ML IV ONE ×2 (16:41→19:05)
[2022-11-08] MEDS ORDERED: CEFEPIME 2,000 MG/20 ML VIAL IV STA (16:42)
--- NOTE | 2022-11-08 16:44 | Emergency Department Note ---
Impression & Plan Fall, OZIEL (acute kidney injury), Hypotension, Weakness, Acute hyponatremia, Acute hypotension ED Provider Note NAME: RAMSEY WU AGE: 66 SEX: F : 1955 ARRIVES VIA: Ambulance INFORMANT: Patient, Family ED PROVIDER(S): Tj Bertrand DO CHIEF COMPLAINT: weakness HPI: patient is a 66-year-old female with metastatic breast cancer to the bone who presents to the ER for weakness which started within the past 2 days. She notes that she can no longer get around that she is feeling so weak. She denies any headache or change in vision. No chest pain or shortness of breath. No nausea vomiting or diarrhea. No urinary symptoms. She notes her legs just feel as though they cannot move. She was getting in the car to come here and she fell onto her knees. She complains of mild mid humerus pain. She notes her tetanus is up-to-date. Additional history provided by family who was there when this occurred. They note that she is becoming more weak and having trouble getting around. ADDITIONAL HISTORY OBTAINED: Per HPI Chronic Medical/Social Conditions Affecting Care: Per HPI PAST MEDICAL HISTORY:See Below PAST SURGICAL HISTORY:See Below FAMILY HISTORY:See Below SOCIAL HISTORY:See Below HOME MEDICATIONS:See Below ALLERGIES:See Below VITALS:See Below PHYSICAL EXAMINATION: GENERAL: alert, chronically ill-appearing, disheveled HEAD: normal cephalic, atraumatic EYE EXAM: normal conjunctiva, PERRL and EOM's grossly intact OROPHARYNX: mucous membranes are dry NECK: supple, no nuchal rigidity, no adenopathy, non-tender CHEST: stable to compression anteriorly and posteriorly LUNGS: clear to auscultation. Normal chest wall mechanics HEART: no murmurs, S1 normal and S2 normal ABDOMEN: abdomen soft, non-tender, normo-active bowel sounds, no masses, no rebound or guarding. PELVIS: stable to compression anteriorly and posteriorly BACK: Back is symmetrical on inspection and there is no deformity, no midline tenderness, no CVA tenderness. UPPER EXTREMITIES: full active and passive range of motion of all joints without tenderness to palpation LOWER EXTREMITIES: full active and passive range of motion of all joints without tenderness to palpation NEURO EXAM: Normal sensorium, cranial nerves II-XII grossly intact, normal spe ech, no gross weakness of arms, no gross weakness of legs. GCS: 15. MEDICAL DECISION MAKING: Patient is a 66-year-old female who presents the ER for weakness. She has a past medical history of breast cancer with mets to the bone and diastolic heart failure with an EF of 50%. Labs show no significant leukocytosis. Mild anemia 10.4 fairly consistent with previous. BMP with hyponatremia at 129. Creatinine elevated at 1.7 up from baseline 1.9. Calcium was low at 6.5 mag was low at 1.3. LFTs and bilirubin were unremarkable. Lipase was normal. Viral panel was negative. Urine was pending. Upon arrival she was given 1 L of fluids. She dropped her pressures to the 60s and consequently I performed a bedside ultrasound which showed a compressible IVC and consequently she was given additional liter of fluid. Her baseline blood pressures trended back up into the 90s. She was covered with IV cefepime initially upon arrival 2/2 the weakness. She has no other complaints. She did not hit her head when she fell. She fell onto her knees. Denies any chest pain, belly pain, or any other extremity pain. She was updated bedside discussed with Dr. Perez Sanz for further evaluation management treatment. External Records Reviewed: External records reviewed from cardiology which showed an EF of 50% in 2021. Consults/Care Managements Discussions: Per [facility] Triage Nursing notes reviewed. Limited review of prior medical records performed Vital Signs: reviewed and remarkable for hypotension Differential diagnosis: Infection, dehydration, metabolic abnormality, hypo/hyperglycemia, electrolyte disturbance, anemia, hypoxia, cardiac sources, intracerebral event, toxicologic, neurologic, as well as other pathologies. ER treatment provided: See below Diagnostics interpreted by me include EKG and cardiac monitoring as listed below: -Cardiac Monitoring: An order was placed for continuous cardiac monitoring. The monitor shows a rate of 80 with sinus rhythm. -ECG: Sinus rhythm rate of 94 Normal axis No PVCs QTc 470 -Laboratory studies:Interpreted by me as stated above in MDM and shown below. Imaging studies: Xrays: As interpreted by me: Portable AP upright 1 view of the chest shows no focal infiltrate CTs show: none Procedures:none Critical Care: I have personally spent 31 minutes of critical care time in the direct management of this patient. This includes bedside care, interpretation of diagnostic studies, and testing, discussion with consultants, patient, and family members, and other required patient management activities. This 31 minutes is in excess of all separately billable procedures. 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 Barkley Chronic systolic CHF (congestive heart failure), NYHA class [address] 2017 (after diverticular perforation complications) Depression Diabetes Difficult intravenous access difficult IV access Left arm Discharge of eye, right Diverticular disease DM type 2 (diabetes mellitus, type 2) NIDDM Encounter for pre-operative examination Hyperlipidemia Left leg DVT started on eliquis. repeat doppler in 07/2021. Lumbar disc herniation with radiculopathy LV dysfunction Metastatic breast cancer hx chemo, radiation + surgery Morbid obesity PAC (premature atrial contraction) h/o PVC (premature ventricular contraction) h/o Surgical History H/O bilateral mastectomy denies limb restriction History of cardiac cath 2017 - [place] - cardiomyopathy - no stents/angioplasty History of humerus fracture (03/26/20) with open reduction and internal fixation due to pathological fracture (Dr. Gillette) History of hysterectomy History of intestinal surgery History of lumbar laminectomy History of surgery for malignant neoplasm 2017 removal of substernal mass + radiation Family History Mother Breast cancer Sister Breast cancer Father Myocardial infarction Prostate cancer Other Cancer Heart disease Hypertension Denies family history of Ovarian cancer Colorectal cancer Social History Smoking Status: Current every day smoker Tobacco Type: Cigarettes Age Started Using Tobacco: 15; Cigarettes Per Day: 3/4 pack per day; Second Hand Exposure: No; Do You Dip or Chew Tobacco: No; Hx Alcohol Use: No Hx Substance Use: No Preferred Language: Faroese Communication Ability: Effective Visual Impairment: No Limitations Computer Meteorologist Required: No Beliefs That Will Affect Care: None marital status: Single Current Living Situation: Alone current occupational status: retired How many Children do You have: 0 Feels Safe at Home: Yes Childhood Exposure to Second-Hand Smoke: No Diet: regular caffeine: Yes Dental Care, Regularly: Yes Physical Activity Frequency: Does not Exercise Seatbelt Use: never Sunscreen Use: Yes Assistive Devices: Cane and Denture - Upper Allergies Allergies Allergy/AdvReac Type Severity Reaction Status Date / Time aspirin Allergy Mild hives Verified 10/31/22 11:12 ibuprofen Allergy Mild hives Verified 10/31/22 11:12 tamoxifen Allergy Unknown temporary Verified 10/31/22 11:12 left eye vision loss Home Meds Home Medications Medication Instructions Recorded Confirmed acetaminophen 500 mg tablet 500 mg PO Q6H PRN Pain 04/13/20 10/31/22 (Tylenol Extra Strength) capecitabine 500 mg tablet 2,000 mg PO BID 10/04/20 10/31/22 Calcium 600 + D(3) 1 tab PO DAILY 06/21/22 10/31/22 Previous Rx's Medication Instructions Recorded paroxetine HCl 30 mg tablet (Paxil) 30 mg PO QAM #90 tabs 09/30/21 furosemide 40 mg tablet 40 mg PO QAM #90 tabs 10/11/21 fulvestrant 250 mg/5 mL 500 mg (10 mL) IM ONCE 3 doses #10 03/14/22 intramuscular syringe mL apixaban 5 mg tablet (Eliquis) 5 mg PO BID DVT #180 tabs 05/01/22 Wheelchair (Manual) #1 ea 07/14/22 losartan 25 mg tablet 12.5 mg PO QPM #15 tabs 07/21/22 metformin 1,000 mg tablet 1,000 mg PO BID #180 tabs 07/24/22 carvedilol 3.125 mg tablet 3.125 mg PO BID #180 tabs 08/18/22 gabapentin 300 mg capsule 300 mg PO .COMPLEX #360 caps 09/04/22 magnesium chloride 64 mg 128 mg PO DAILY #180 tabs 09/20/22 (magnesium chloride) tablet,delayed release magnesium oxide 400 mg (241.3 mg 800 mg PO BID #90 tabs 10/16/22 magnesium) tablet atorvastatin 10 mg tablet 10 mg PO QPM #90 tabs 10/23/22 amiloride 5 mg tablet 5 mg PO DAILY #30 tabs 10/25/22 ergocalciferol (vitamin D2) 1,250 1,250 mcg PO .COMPLEX #8 caps 10/25/22 mcg (50,000 unit) capsule polymyxin B sulfate 10,000 1 drp ophthalmic (eye) Q3H 7 days 10/27/22 unit-trimethoprim 1 mg/mL eye #10 mL drops (Polytrim) omeprazole 20 mg capsule,delayed 20 mg PO QAM #90 caps 10/30/22 release potassium chloride 20 mEq 20 meq PO QAM #90 tabs 10/30/22 tablet,extended release Results & Data (ED) Vital Signs Vital Signs - 24 hr 11/08/22 16:00 11/08/22 16:00 11/08/22 16:37 Temperature 36.8 C Temperature Source Oral Pulse Rate 94 H 93 H Respiratory Rate 20 Respiratory Effort / Characteristics Non-Labored Respiratory Depth Normal Respiratory Pattern Regular Blood Pressure 97/61 L Blood Pressure Mean 73 Blood Pressure Position Lying Pulse Oximetry 95 95 Oxygen Delivery Method Room Air Room Air Sepsis Recent Fever Within 48 Hours No Sepsis New/Unexplained Change in Mental Status No Sepsis Action Taken by Nursing No Action Required 11/08/22 16:41 Temperature Temperature Source Pulse Rate 79 Respiratory Rate Respiratory Effort / Characteristics Respiratory Depth Respiratory Pattern Blood Pressure Blood Pressure Mean Blood Pressure Position Pulse Oximetry 93 Oxygen Delivery Method Room Air Sepsis Recent Fever Within 48 Hours Sepsis New/Unexplained Change in Mental Status Sepsis Action Taken by Nursing Laboratory Data 11/08/22 16:10 11/08/22 16:10 Lab Results 11/08/22 11/08/22 Range/Units 16:10 16:10 WBC 6.84 (4.8-10.8) K/ul RBC 3.06 L (4.20-5.40) M/uL Hgb 10.4 L (12.0-16.0) g/dl Hct 30.5 L (37.0-47.0) % MCV 99.7 (80.0-100.0) fL MCH 34.0 (25.0-34.0) pg MCHC 34.1 (32.0-36.0) g/dL RDW Std Deviation 65.4 H (36.4-46.3) fL RDW Coeff of Bradford 18.3 H (11.5-14.5) % Plt Count 290 (130-400) K/uL MPV 9.5 (9.4-12.4) fL Immature Gran % (Auto) 1.2 % Neut % (Auto) 77.5 % Lymph % (Auto) 14.5 % Alexander % (Auto) 3.5 % Eos % (Auto) 2.9 % Baso % (Auto) 0.4 % Neut # (Auto) 5.30 (1.40-6.50) K/uL Lymph # (Auto) 0.99 L (1.20-3.40) K/uL Alexander # (Auto) 0.24 (0.11-0.59) K/uL Eos # (Auto) 0.20 (0.00-0.50) K/uL Baso # (Auto) 0.03 (0.00-0.20) K/uL Immature Gran # (Auto) 0.08 (0.01-0.20) K/uL Sodium 129 L (136-145) mmol/L Potassium 4.5 (3.5-5.1) mmol/L Chloride 106 (98-107) mmol/L Carbon Dioxide 15 L (21-32) mmol/L Anion Gap 8 (3-11) BUN 31 H (6-23) mg/dl Creatinine 1.68 H (0.6-1.2) mg/dl Est Cr Clr Drug Dosing 33.4 ml/min Est GFR ( Amer) 36.1 ml/min Est GFR (Non-Af Amer) 31.1 ml/min BUN/Creatinine Ratio 18.5 (10-20) Glucose 136 H (70-99(Fasting)) mg/dl Calcium 6.5 L (8.6-10.3) mg/dl Magnesium 1.3 L (1.7-2.4) mg/dl Total Bilirubin 0.7 (0.2-1.0) mg/dl AST 12 L (13-39) U/L ALT 7 (7-52) U/L Alkaline Phosphatase 57 (34-104) U/L Total Protein 5.6 L (6.0-8.3) gm/dl Albumin 2.9 L (3.4-5.0) gm/dl Globulin 2.7 (2.5-4.0) gm/dl Albumin/Globulin Ratio 1.1 (0.9-2) Lipase 32 (11-82) U/L Administered Medications Magnesium Sulfate/Dextrose (Magnesium Sulfate / D5w) 1 gm in 100 mls @ 100 mls/hr IV Q1H TUNDE Stop: 11/08/22 19:38 Last Admin: 11/08/22 18:54 Dose: 100 mls/hr Documented By: Infusion: 11/08/22 18:52 Dose: 100 mls/hr Documented By: Admin: 11/08/22 17:52 Dose: 100 mls/hr Documented By: QGV Discontinued Medications Sodium Chloride (Nss) 1,000 mls @ 999 mls/hr IV .Q1H1M ONE Stop: 11/08/22 17:41 Last Admin: 11/08/22 17:03 Dose: 999 mls/hr Documented By: QGV Cefepime HCl (Maxipime) 2,000 mg in 20 mls @ 5 mls/min IV NOW STA; Protocol Stop: 11/08/22 16:45 Last Admin: 11/08/22 18:54 Dose: Not Given Documented By: QGV Morphine Sulfate (Morphine Sulfate 4 Mg/Ml 1 Ml Carp\Vial) 4 mg IV NOW STA Stop: 11/08/22 17:29 Last Admin: 11/08/22 17:41 Dose: 4 mg Documented By: QGV Ondansetron HCl (Ondansetron Inj 2 Mg/Ml 2 Ml Vial) 4 mg IV NOW STA Stop: 11/08/22 17:29 Last Admin: 11/08/22 17:41 Dose: 4 mg Documented By: QGV Imaging Data Radiologist's Impression: Chest X-Ray 11/08/22 16:41 XR chest 1V portable CLINICAL HISTORY: weakness TECHNIQUE: Single frontal radiograph of the chest was obtained. Comparison: Comparison is made to chest radiograph 08/28/2022 FINDINGS: Surgical clips are seen in the left axilla and plate and screw fixation hardware is seen over the left distal humerus. Calcified aortic knob is seen. Reticular interstitial opacities are seen. No evidence of pleural effusion or pneumothor ax. IMPRESSION: No acute chest disease. ACT 112: Negative or not required by law. Electronically signed by: Tucker Johnson M.D. 11/08/2022 5:09 PM Humerus X-Ray 11/08/22 17:28 XR humerus RT 2V CLINICAL HISTORY: r hum pain TECHNIQUE: 2 radiographic views of the right humerus were obtained. Comparison: None available at the time of this dictation. FINDINGS: There is no evidence for fracture, subluxation or dislocation. The visualized portion of the shoulder and elbow joints are unremarkable. There is normal bone mineralization. The overlying soft tissues are unremarkable. IMPRESSION: No acute osseous injury ACT 112: Negative or not required by law. Electronically signed by: Tucker Johnson M.D. 11/08/2022 6:03 PM Discharge Plan Visit Data Chief Complaint: Weakness Stated Complaint: WEAKNESS, FELL GETTING IN TO CAR ED Provider: Tj Bertrand Discharge Problem: Fall, OZIEL (acute kidney injury), Hypotension, Weakness, Acute hyponatremia, Acute hypotension Forms Stand Alone Forms: [facility] [email or web address] Prescriptions Prescriptions: No Action acetaminophen [Tylenol Extra Strength] 500 mg tablet 500 mg PO Q6H PRN (Reason: Pain) paroxetine HCl [Paxil] 30 mg tablet 30 mg PO QAM Qty: 90 3RF furosemide 40 mg tablet 40 mg PO QAM Qty: 90 3RF fulvestrant 250 mg/5 mL syringe 500 mg IM ONCE Qty: 10 0RF Rx Instructions: Pt states she has a loading dose and then every month after. Eliquis 5 mg tablet 5 mg PO BID Qty: 180 3RF (DME) Wheelchair (Manual) Device See Rx Instructions .Route Qty: 1 0RF Rx Instructions: Transport Wheelchair losartan 25 mg tablet 12.5 mg PO QPM Qty: 15 3RF metformin 1,000 mg tablet 1,000 mg PO BID Qty: 180 1RF carvedilol 3.125 mg tablet 3.125 mg PO BID Qty: 180 3RF Rx Instructions: must administer with a meal/food gabapentin 300 mg capsule 300 mg PO .COMPLEX Qty: 360 1RF Rx Instructions: 300 mg PO QID (AT 6AM, 12PM, 4PM, AND 8PM) magnesium chloride 64 mg tablet,delayed release (DR/EC) 128 mg PO DAILY Qty: 180 1RF magnesium oxide 400 mg (241.3 mg magnesium) tablet 800 mg PO BID Qty: 90 1RF atorvastatin 10 mg tablet 10 mg PO QPM Qty: 90 1RF amiloride 5 mg tablet 5 mg PO DAILY Qty: 30 2RF ergocalciferol (vitamin D2) 1,250 mcg (50,000 unit) capsule 1,250 mcg PO .COMPLEX Qty: 8 0RF Rx Instructions: 1,250 mcg orally twice weekly; omeprazole 20 mg capsule,delayed release(DR/EC) 20 mg PO QAM Qty: 90 3RF potassium chloride 20 mEq tablet extended release 20 meq PO QAM Qty: 90 3RF capecitabine 500 mg tablet 2,000 mg PO BID polymyxin B sulf-trimethoprim [Polytrim] 10,000 unit- 1 mg/mL drops 1 drp ophthalmic (eye) Q3H 7 Days Qty: 10 1RF Rx Instructions: while awake; do not exceed 6 doses in 24 hours Calcium 600 + D(3) 1 tab PO DAILY Referrals Referrals: Crystal Shleley MD [Primary Care Provider] -
--- NOTE | 2022-11-08 17:11 | XRay Report ---
XR chest 1V portable CLINICAL HISTORY: weakness TECHNIQUE: Single frontal radiograph of the chest was obtained. Comparison: Comparison is made to chest radiograph 08/28/2022 FINDINGS: Surgical clips are seen in the left axilla and plate and screw fixation hardware is seen over the lef t distal humerus. Calcified aortic knob is seen. Reticular interstitial opacities are seen. No eviden ce of pleural effusion or pneumothorax. IMPRESSION: No acute chest disease. ACT 112: Negative or not required by law. Electronically signed by: Tucker Johnson M.D. 11/08/2022 5:09 PM
[2022-11-08 17:18] LABS: Basophils # (auto) 0.03 K/uL (0.00-0.20); Basophils % (auto) 0.4 %; Eosinophils % (auto) 2.9 %; Hematocrit (blood only) 30.5 % (37.0-47.0); Hemoglobin 10.4 g/dl (12.0-16.0); Immature Granulocytes # (auto) 0.08 K/uL (0.01-0.20); Immature Granulocytes % (auto) 1.2 %; Lymphocytes # (auto) 0.99 K/uL (1.20-3.40); Lymphocytes % (auto) 14.5 %; Mean Corpuscular Hgb Conc 34.1 g/dL (32.0-36.0); Mean Corpuscular Volume 99.7 fL (80.0-100.0); Mean Platelet Volume 9.5 fL (9.4-12.4); Monocytes # (auto) 0.24 K/uL (0.11-0.59); Monocytes % (auto) 3.5 %; Neutrophils % (auto) 77.5 %; Platelet Count 290 K/uL (130-400); RDW Coefficient of Variation 18.3 % (11.5-14.5); RDW Standard Deviation 65.4 fL (36.4-46.3); Red Blood Count 3.06 M/uL (4.20-5.40); White Blood Count 6.84 K/ul (4.8-10.8)
[2022-11-08 17:27] LABS: Albumin Globulin Ratio 1.1 (0.9-2); Albumin Level 2.9 gm/dl (3.4-5.0); BUN Creatinine Ratio 18.5 (10-20); Bilirubin,Total 0.7 mg/dl (0.2-1.0); Calcium 6.5 mg/dl (8.6-10.3); Creatinine Clr Calc Pharmacy 33.4 ml/min; Est GFR (African American) 36.1 ml/min; Est GFR (Non-African American) 31.1 ml/min; Globulin 2.7 gm/dl (2.5-4.0); Magnesium 1.3 mg/dl (1.7-2.4); Potassium 4.5 mmol/L (3.5-5.1); Total Protein 5.6 gm/dl (6.0-8.3)
[2022-11-08] MEDS ORDERED: MoRPHine SULFATE 4 MG/ML 1 ML CARP\\VIAL IV STA (17:28)
[2022-11-08] MEDS ORDERED: ONDANSETRON INJ 2 MG/ML 2 ML VIAL IV STA (17:28)
[2022-11-08] MEDS: MAGNESIUM SULFATE / D5W 1 GM/100 ML BAG IV SCH ×2 (17:52→18:54)
--- NOTE | 2022-11-08 18:05 | XRay Report ---
XR humerus RT 2V CLINICAL HISTORY: r hum pain TECHNIQUE: 2 radiographic views of the right humerus were obtained. Comparison: None available at the time of this dictation. FINDINGS: There is no evidence for fracture, subluxation or dislocation. The visualized portion of the shoulder and elbow joints are unremarkable. There is normal bone mineralization. The overlying soft tissues a re unremarkable. IMPRESSION: No acute osseous injury ACT 112: Negative or not required by law. Electronically signed by: Tucker Johnson M.D. 11/08/2022 6:03 PM
--- NOTE | 2022-11-08 18:09 | History & Physical Report ---
Date of Service November 08, 2022 Assessment & Plan (1) Weakness: Plan: fall at home -- multifactorial in patient with metastatic breast cancer progressed on Faslodex/ibrance as well as anastrazole, most recently on Xeloda with worsening neuropathy and peeling of hands/feet, hypomagnesemia -NON anion gap acidosis- recently seen by Dr Yepez, placed on amiloride for mag sparing and patient with RTA type 2, will plan to consult while inpatient given electrolyte issues Admit med/tele Mag replacement, check phos level, ionized calcium (treat if ionized ca <8, supervising provider to f/u on labs) Check UA to ensure no infection Discontinued Cefepime as ordered by ER provider given no leukocytosis or fevers/chills reported at this time. * Will check blood cultures however, and monitor need for empiric abx (ie if UA comes back looking infected) High output ostomy/non-anion gap metabolic acidosis/hyponatremia Mag 1.3, Ca 6.5 (albumin 2.9) , Na LOW 129, increased diuretics as outpatient and continued on lasix 40mg daily, increased output from her ostomy, also on metformin, decreased PO intake/dehydrated on exam with BUN/Cr 31/1.68 with fairly normal baseline. Getting IV mag outpatient and last heme/onc was given 1L IVF for dehydration, suspect over diuresis contributing as well Given 1L NSS in ER, planning additional 2L IVF NaHCO3 150 meq for overnight, holding lasix for AM Serial labs for hyponatremia Mag IV replacement, oral continued. Monitor repeat level in AM Nephrology consulted for assistance Will continue amiloride in AM but hold further lasix Nutrition consult -- ?consideration for fiber to slow diarrhea/high output. On metformin 1g BID, last A1c 5.6. Will place on SSI while inpatient but consider stopping this to improve renal function/lessen diarrhea Check stool PCR/cdiff given high output but denies having any abdominal pain Neuropathy * On gabapentin 300mg QID at baseline for neuropathy. CrCl 33.4 -- should be max 900mg/daily, on 1200mg. * Will adjust to 300mg TID for now. * Will check B12 w/ AM labs as prior levels low normal/replacement if needed Peeling of hands/feet * -Chemotherapy related side effects of weakness but also peeling of hands/feet likely from Xeloda * --> Discussed w/ Dr Montoya who saw in ER after discussion and discussed STOPPING this medication and switching to Enhertu or fulvestrant/apelisib or elacestrant/apelisib. * Will work on arranging sooner follow up for patient at time of discharge Fungal infection to groin Wound RN consult for groin folds/yeast infection, also for ostomy/redness Nystatin topically for now, may need oral antifungal monitor on exam PT/OT consults to be undertaken. Strongly encouraged rehab if not strong enough for safe dc at home given does have some caregivers and family for a lot of time, but not 24/7 care at present. (2) Fall: Plan: multifactorial as above, therapy evals to be undertaken. maintain fall precautions (3) Acute conjunctivitis of both eyes: Plan: continue polymixin for now -- monitor for need for alternative agent (4) Acute kidney injury: Plan: BUN/Cr 31/1.68 IVF in ER, continue on NSS + NaHCO, nephrology consulted serial labs/electrolyte replacement as needed (5) Hypomagnesemia: Plan: low 1.4 -- IV replacement ordered. will continue PO replacement as well as additional 1gm IV overnight Nephrology consulted as above, concerns renal tubular acidosis, low Ca/etc as above Serial labs/electrolyte repalcement as indicated (6) Hyponatremia: Plan: Na 129, serial labs/nephrology as above hold lasix (7) Diastolic CHF: Plan: follows with Dr Barkley -- appears DRY on exam, recently started amiloride as well per nephrology IVF as above, will plan to continue her usual coreg as well as losartan but holding lasix. Continue amiloride per nephrology unless otherwise directed Monitor weights/I&Os (8) Malignant neoplasm of breast metastatic to bone: Plan: discussed w/ heme/onc during inpatient encounter -- to STOP her xeloda, will need f/u treatment options/sooner f/u at dc can call Dr Montoya for tomorrow if needed, did see in ER (9) Peeling skin: Plan: 2nd to Xeloda, last dose this morning wound RN consulted for above STOPPING Xeloda (10) Vitamin D deficiency: Plan: recent increase as outpatient (11) Impaired mobility and ADLs: (12) Metabolic acidosis with normal anion gap and bicarbonate losses: (13) Intertrigo: History of Present Illness Chief Complaint: weakness, fall Primary Care Provider: Crystal Shelley MD 66 female presented with weakness and fall this morning. felt like her legs were giving out. Evaluated in B6, niece at bedside. Patient reported she had been attempting to get up and her legs gave out and buckled underneath her and was not able to get up. She came down on both knees and her right elbow getting stuck between the doorway. She has been having progressive neuropathy and weakness, undergoing treatment for metastatic breast cancer with Zeloda (took dose this morning) and follows with Dr Montoya. Peeling of hands/feet. When she was unable to get up with assistance of her sister Tg, 911 was called to help get her up. She reports normal vitals at that time for Yamel, BP on the soft side but that she typically runs on the lower side. HR normal/not irregular and SpO2 was 90% on room air despite still smoking cigarettes. Patient has seen multiple specialists this past 2 weeks. No one could comment on the peeling of her hands/feet with cardiology, and has been on lasix 40mg daily with additional dose as needed when necessary but hasn't been using much additional. Saw Dr Yepez and was placed on "magnesium sparing diuretic", but unsure what the name was. Decent appetite reported but per family at bedside does not think she has a great appetite. Discussed w/ heme/onc inpatient and peeling from Zeloda and recs to stop such and will use IV agent as discussed last week in follow up. Her ostomy output has also been significant, likely leading to low magnesium. Discussed no significant hx bowel obstructions and likely benefit from some fiber to help slow. She is on 800mg magnesium in the morning and additional 400mg in the afternoon. Also has been having some crusting to her eyes, rx Polymyxin by Dr Shelley but ran out and ongoing issues. On 2L at present but given morphine for her shoulder which improved. She has some excoriations ot her knees as well as skin tear on her right forearm. Also uses depends given ambulation issues at baseline but denies staying in wet depends for extended period of time or urinary symptoms at this time. She does have some significant yeast to her groins. A&D placed by sister, will plan to consult wound care as well given ostomy and some erythema surrounding. She reports other than ongoing weakness she doesn't feel that poorly. Gets routine PET scans, no evidence for brain mets. Discussed admission for electrolyte replacement, therapy evaluations. She is not keen on rehab placement but discussed given not having 24/7 caregivers at home would not be safe due to risk of fracture which would be life threatening for the patient. Denies any recent fever/chills, chest pain, increased shortness of breath/sputum production, abdominal pain, nausea or dysuria at this time. On eliquis for hx DVT in her left leg. ER Course: Humerus xray, CXR WBC 6.4, Hgb 10.4, Plt 290. Na 129, K 4.5. BUN/Cr 31/1.68. Mag 1.3 Was given 1l NSS bolus, morphine 4mg IV, zofran 4mg IV, 2gm IV magnesium replacement ordered Biofire pending Allergies Allergy/AdvReac Type Severity Reaction Status Date / Time aspirin Allergy Mild hives Verified 11/08/22 20:27 ibuprofen Allergy Mild hives Verified 11/08/22 20:27 tamoxifen Allergy Unknown temporary Verified 11/08/22 20:27 left eye vision loss Home Medications Medication Instructions Recorded Confirmed Type acetaminophen 500 mg tablet 500 mg PO Q6H PRN Pain 04/13/20 11/08/22 History (Tylenol Extra Strength) paroxetine HCl 30 mg tablet (Paxil) 30 mg PO QAM #90 tabs 09/30/21 11/08/22 Rx furosemide 40 mg tablet 40 mg PO QAM #90 tabs 10/11/21 11/08/22 Rx fulvestrant 250 mg/5 mL 500 mg (10 mL) IM ONCE 3 doses #10 03/14/22 11/08/22 Rx intramuscular syringe mL apixaban 5 mg tablet (Eliquis) 5 mg PO BID DVT #180 tabs 05/01/22 11/08/22 Rx Wheelchair (Manual) #1 ea 07/14/22 11/08/22 Rx losartan 25 mg tablet 12.5 mg PO QPM #15 tabs 07/21/22 11/08/22 Rx metformin 1,000 mg tablet 1,000 mg PO BID #180 tabs 07/24/22 11/08/22 Rx carvedilol 3.125 mg tablet 3.125 mg PO BID #180 tabs 08/18/22 11/08/22 Rx gabapentin 300 mg capsule 300 mg PO .COMPLEX #360 caps 09/04/22 11/08/22 Rx magnesium oxide 400 mg (241.3 mg 800 mg PO BID #90 tabs 10/16/22 11/08/22 Rx magnesium) tablet atorvastatin 10 mg tablet 10 mg PO QPM #90 tabs 10/23/22 11/08/22 Rx ergocalciferol (vitamin D2) 1,250 1,250 mcg PO .COMPLEX #8 caps 10/25/22 11/08/22 Rx mcg (50,000 unit) capsule omeprazole 20 mg capsule,delayed 20 mg PO QAM #90 caps 10/30/22 11/08/22 Rx release potassium chloride 20 mEq 20 meq PO QAM #90 tabs 10/30/22 11/08/22 Rx tablet,extended release amiloride 5 mg tablet 5 mg PO QAM 11/08/22 11/08/22 History calcium carbonate 600 mg-vitamin 1 tab PO DAILY 11/08/22 11/08/22 History D3 10 mcg (400 unit) tablet (Calcium 600 + D(3)) magnesium chloride 64 mg 64 mg PO BID 11/08/22 11/08/22 History (magnesium chloride) tablet,delayed release Past Med/Surg History Medical History (HFpEF) heart failure with preserved ejection fraction Abnormal CT scan recent CT @ [facility] w/ evidence 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 Barkley Chronic systolic CHF (congestive heart failure), NYHA class [address] 2017 (after diverticular perforation complications) Depression Diabetes Difficult intravenous access difficult IV access Left arm Discharge of eye, right Diverticular disease DM type 2 (diabetes mellitus, type 2) NIDDM Encounter for pre-operative examination Hyperlipidemia Left leg DVT started on eliquis. repeat doppler in 07/2021. Lumbar disc herniation with radiculopathy LV dysfunction Metastatic breast cancer hx chemo, radiation + surgery Morbid obesity PAC (premature atrial contraction) h/o PVC (premature ventricular contraction) h/o Surgical History H/O bilateral mastectomy denies limb restriction History of cardiac cath 2017 - [place] - cardiomyopathy - no stents/angioplasty History of humerus fracture (03/26/20) with open reduction and internal fixation due to pathological fracture (Dr. Gillette) History of hysterectomy History of intestinal surgery History of lumbar laminectomy History of surgery for malignant neoplasm 2017 removal of substernal mass + radiation Family History Mother Breast cancer Sister Breast cancer Father Myocardial infarction Prostate cancer Other Cancer Heart disease Hypertension Denies family history of Ovarian cancer Colorectal cancer Social History Smoking Status: Current every day smoker Tobacco Type: Cigarettes Age Started Using Tobacco: 15; Cigarettes Per Day: 3/4 pack per day; Second Hand Exposure: No; Do You Dip or Chew Tobacco: No; Tobacco Cessation Education Requested by Patient: No Hx Alcohol Use: No Hx Substance Use: No Preferred Language: Syriac Communication Ability: Effective Visual Impairment: No Limitations [employer] Supervisor Required: No Beliefs That Will Affect Care: None marital status: Single Current Living Situation: Alone Current Living Situation Comment: with caregivers current occupational status: retired How many Children do You have: 0 Other Information That Helps Us Care for You: No Feels Safe at Home: Yes Safety Concerns: Feels Safe At This Time Childhood Exposure to Second-Hand Smoke: No Diet: regular caffeine: Yes Dental Care, Regularly: Yes Physical Activity Frequency: Does not Exercise Seatbelt Use: never Sunscreen Use: Yes Assistive Devices: Walker Physical Exam Physical Exam: General: chronically ill appearing female resting in bed, niece and sister at bedside, just medicated with morphine for right shoulder/elbow pain HEENT: bilateral crusting of eyes, EOMI, pupils reactive, upper dentures in place (doesn't have lowers with her) Resp: slightly diminished in the bases, no wheezing/rales, on 2L post-morphine administration, shallow breathing but no tachypnea/cough appreciated CV: regular rate/rhythm, faint murmur, no significant pitting edema/calf tenderness, pulses palpable GI: +BS, soft, NT +ostomy to LLQ, green/yellow liquid output, surrounding erythema, worse distally to groin ; no espana MSK/Neuro: no focal deficit, no slurred speech, follows commands, generalized weakness R elbow with slight redness from fall/no cellulitis or sanjay step off, ROM intact b/l knee with abrasion anteriorly, pulses palpable, ROM intact generalized weakness but equal bilaterally Skin: Erythema and peeling of skin of palms and soles without tracking erythema up extremities Results & Data Results & Data Vital Signs (Past 12 Hours) Vital Signs Temp Pulse Resp BP Pulse Ox O2 Del Method 11/08/22 16:41 79 93 Room Air 11/08/22 16:37 93 H 11/08/22 16:00 95 Room Air 11/08/22 16:00 36.8 C 94 H 20 97/61 L 95 Room Air Laboratory Results 11/08/22 11/08/22 11/08/22 Range/Units 17:44 16:10 16:10 WBC 6.84 (4.8-10.8) K/ul RBC 3.06 L (4.20-5.40) M/uL Hgb 10.4 L (12.0-16.0) g/dl Hct 30.5 L (37.0-47.0) % MCV 99.7 (80.0-100.0) fL MCH 34.0 (25.0-34.0) pg MCHC 34.1 (32.0-36.0) g/dL RDW Std Deviation 65.4 H (36.4-46.3) fL RDW Coeff of [place] 18.3 H (11.5-14.5) % Plt Count 290 (130-400) K/uL MPV 9.5 (9.4-12.4) fL Immature Gran % (Auto) 1.2 % Neut % (Auto) 77.5 % Lymph % (Auto) 14.5 % [place] % (Auto) 3.5 % Eos % (Auto) 2.9 % Baso % (Auto) 0.4 % Neut # (Auto) 5.30 (1.40-6.50) K/uL Lymph # (Auto) 0.99 L (1.20-3.40) K/uL [place] # (Auto) 0.24 (0.11-0.59) K/uL Eos # (Auto) 0.20 (0.00-0.50) K/uL Baso # (Auto) 0.03 (0.00-0.20) K/uL Immature Gran # (Auto) 0.08 (0.01-0.20) K/uL Sodium 129 L (136-145) mmol/L Potassium 4.5 (3.5-5.1) mmol/L Chloride 106 (98-107) mmol/L Carbon Dioxide 15 L (21-32) mmol/L Anion Gap 8 (3-11) BUN 31 H (6-23) mg/dl Creatinine 1.68 H (0.6-1.2) mg/dl Est Cr Clr Drug Dosing 33.4 ml/min Est GFR ( Amer) 36.1 ml/min Est GFR (Non-Af Amer) 31.1 ml/min BUN/Creatinine Ratio 18.5 (10-20) Glucose 136 H (70-99(Fasting)) mg/dl Calcium 6.5 L (8.6-10.3) mg/dl Phosphorus 2.8 (2.5-4.9) mg/dl Magnesium 1.3 L (1.7-2.4) mg/dl Total Bilirubin 0.7 (0.2-1.0) mg/dl AST 12 L (13-39) U/L ALT 7 (7-52) U/L Alkaline Phosphatase 57 (34-104) U/L Total Protein 5.6 L (6.0-8.3) gm/dl Albumin 2.9 L (3.4-5.0) gm/dl Globulin 2.7 (2.5-4.0) gm/dl Albumin/Globulin Ratio 1.1 (0.9-2) Lipase 32 (11-82) U/L Adenovirus (PCR) Not Detected (NotDetected) B. pertussis DNA (PCR) Not Detected (NotDetected) B.parapertussis DNA PCR Not Detected (NotDetected) C. pneumoniae DNA (PCR) Not Detected (NotDetected) Coronavirus OC43 (PCR) Not Detected (NotDetected) Coronavirus HKU1 (PCR) Not Detected (NotDetected) Coronavirus 229E (PCR) Not Detected (NotDetected) SARS-CoV-2 (PCR) Not Detected (NotDetected) Coronavirus NL63 (PCR) Not Detected (NotDetected) Human Metapneumovir PCR Not Detected (NotDetected) Influenza Type A (PCR) Not Detected (NotDetected) Influenza Type B (PCR) Not Detected (NotDetected) M. pneumoniae (PCR) Not Detected (NotDetected) Parainfluenza 1 (PCR) Not Detected (NotDetected) Parainfluenza 2 (PCR) Not Detected (NotDetected) Parainfluenza 3 (PCR) Not Detected (NotDetected) Parainfluenza 4 (PCR) Not Detected (NotDetected) RSV (PCR) Not Detected (NotDetected) Entero/Rhino (PCR) Not Detected (NotDetected) Diagnostic Findings Chest X-Ray 11/08/22 16:41 XR chest 1V portable CLINICAL HISTORY: weakness TECHNIQUE: Single frontal radiograph of the chest was obtained. Comparison: Comparison is made to chest radiograph 08/28/2022 FINDINGS: Surgical clips are seen in the left axilla and plate and screw fixation hardware is seen over the left distal humerus. Calcified aortic knob is seen. Reticular interstitial opacities are seen. No evidence of pleural effusion or pneumothorax. IMPRESSION: No acute chest disease. ACT 112: Negative or not required by law. Electronically signed by: Tucker Johnson M.D. 11/08/2022 5:09 PM Humerus X-Ray 11/08/22 17:28 XR humerus RT 2V CLINICAL HISTORY: r hum pain TECHNIQUE: 2 radiographic views of the right humerus were obtained. Comparison: None available at the time of this dictation. FINDINGS: There is no evidence for fracture, subluxation or dislocation. The visualized portion of the shoulder and elbow joints are unremarkable. There is normal bone mineralization. The overlying soft tissues are unremarkable. IMPRESSION: No acute osseous injury ACT 112: Negative or not required by law. Electronically signed by: Tucker Johnson M.D. 11/08/2022 6:03 PM Supervising Physician Co-Signing Physician Notes I personally saw and examined the patient. I verified all lemus points and agree with Yudy Acevedo PA-C with the following exceptions and/or additions: 66 year old female with metastatic breast cancer currently on Xeloda presents to the ER with generalized weakness and fall. She notes ongoing high output from her ostomy recently, no abdominal pain, nausea or vomiting. No fever, chills. Recent peeling of her hands and feet suspected to be secondary to Xeloda per her oncologist. O/E Alert and orientated, crusting of eyelids bilaterally, no conjunctival erythema, HS RRR, no murmurs, Chest CTAB, Abdo SNT, Ostomy with yellow liquid output, bilateral palms and soles with erythema and skin peeling with no tracking up hands or legs, Erythema and significant moisture under abdominal skin folds and in groin bilaterally, no lateralizing weakness. A/P Non-anion gap metabolic acidosis, OZIEL, hypomagnesemia, hypocalcemia, hyponatremia - suspect from high output ostomy, Agree with stool PCR to rule out infection. NSS 2L bolus given in the ER for fluid resuscitation, continue with sodium bicarb 150 meq @ 125ml/hr overnight to correct for bicarb loss. No fever, tachycardia or WBC to suggest sepsis, lactate (no anion gap) not taken and further antibiotics deferred but given immunosuppressed state agree with blood cultures. IV calcium replacement deferred given ionized calcium > 0.8, continue oral replacement. Peeling of hands and feet - suspected secondary to Xeloda per oncology, difficult to rule out cellulitis but given no tracking up hands or feet at this time will defer ongoing antibiotics (cefepime given in the ER empirically) Intertrigo - again difficult to completely rule out cellulitis but appears to be limited to skin folds. Use miconazole powder liberally Generalized weakness - suspect due to deconditioning with dehydration and electrolyte imbalance as above. Will correct what we have found and re-evaluate. No definitive infection found on admission with UA pending (no specific urinary symptoms present). PT/OT. PG Care Time/CCT Total # of Minutes Spent Total Time Spent with Patient: Total time spent is greater than 50% in coordination of care (as documented) at patient's floor/unit and/or counseling patient: Coding Level of Care Code 46914 INT INP/OBS CARE 3/75MIN Diagnoses Weakness R53.1 Fall W19.XXXA Acute conjunctivitis of both eyes H10.33 Acute kidney injury N17.9 Hypomagnesemia E83.42 Hyponatremia E87.1 Diastolic CHF I50.30 Malignant neoplasm of breast metastatic to bone C50.919; C79.51 Peeling skin R23.4 Vitamin D deficiency E55.9 Impaired mobility and ADLs Z74.09; Z78.9 Metabolic acidosis with normal anion gap and bicarbonate losses E87.20 Intertrigo L30.4
[2022-11-08 19:07] LABS: Phosphorus 2.8 mg/dl (2.5-4.9)
[2022-11-08 19:10] LABS: Adenovirus PCR Not Detected (NotDetected); Bordetella parapertussis PCR Not Detected (NotDetected); Bordetella pertussis PCR Not Detected (NotDetected); Chlamydia pneumoniae PCR Not Detected (NotDetected); Coronavirus 229E PCR Not Detected (NotDetected); Coronavirus CoV-2 (COVID19)PCR Not Detected (NotDetected); Coronavirus HKU1 PCR Not Detected (NotDetected); Coronavirus NL63 PCR Not Detected (NotDetected); Coronavirus OC43PCR Not Detected (NotDetected); Human Metapneumovirus PCR Not Detected (NotDetected); Influenza A PCR Not Detected (NotDetected); Influenza B PCR Not Detected (NotDetected); Mycoplasma pneumoniae PCR Not Detected (NotDetected); Parainfluenza Virus 1 PCR Not Detected (NotDetected); Parainfluenza Virus 2 PCR Not Detected (NotDetected); Parainfluenza Virus 3 PCR Not Detected (NotDetected); Parainfluenza Virus 4 PCR Not Detected (NotDetected); Respiratory Syncytial VirusPCR Not Detected (NotDetected); Rhinovirus/Enterovirus PCR Not Detected (NotDetected)
[2022-11-08] MEDS: SODIUM BICARBONATE 8.4% 150 MEQ in WATER, STERILE 1,000 ML IV SCH (19:55)
[2022-11-08 20:28] LABS: Troponin I High Sensitivity 8.2 pg/ml (0-14)
[2022-11-08] MEDS ORDERED: GLUCAGON FOR INJ 1 MG VIAL SQ PRN (21:24)
[2022-11-08] MEDS ORDERED: SODIUM BICARBONATE IV SCH (21:24)
[2022-11-08] MEDS ORDERED: DEXTROSE 50% 50 ML SYRINGE IV PRN (21:24)
[2022-11-08] MEDS ORDERED: CARBOHYDRATES FOR HYPOGLYCEMIA PO PRN (21:24)
[2022-11-08] MEDS ORDERED: GLUCOSE 40% GEL 15 GM TUBE PO PRN (21:24)
[2022-11-08] MEDS ORDERED: GLUCOSE 10 TAB/TUBE PO PRN (21:24)
[2022-11-08] MEDS ORDERED: SODIUM CHLORIDE 0.9% IV SCH (21:24)
[2022-11-08] MEDS ORDERED: ACETAMINOPHEN 325 MG TAB PO PRN (21:24)
[2022-11-08 22:50] LABS: BUN Creatinine Ratio 18.3 (10-20); Calcium 6.2 mg/dl (8.6-10.3); Creatinine Clr Calc Pharmacy 34.3 ml/min; Est GFR (African American) 37.1 ml/min; Potassium 4.5 mmol/L (3.5-5.1)
[2022-11-08 22:50] LABS: Appearance Urine Cloudy (Clear); Bacteria Urine Automated 2+ (Negative); Bilirubin Urine Negative (Negative); Blood Urine Trace (Negative); Color Urine Yellow; Glucose Urine UA Negative (Negative); Ketones Urine Negative (Negative); Leukocyte Esterase Urine 3+ (Negative); Nitrite Urine Positive (Negative); Protein Urine 1+ (Negative); RBC Urine Automated 0-4 /hpf (0-4); Specific Gravity Urine 1.017 (1.000-1.030); Urobilinogen Urine Negative (Negative); WBC Urine Automated >30 /hpf (0-5)
[2022-11-08] MEDS: APIXABAN 5 MG TABLET PO SCH (23:12)
[2022-11-08] MEDS: GABAPENTIN 300 MG CAP PO SCH (23:12)
[2022-11-08] MEDS: MAGNESIUM OXIDE 400 MG TAB PO SCH (23:13)
[2022-11-08] MEDS: MICONAZOLE NITRATE POWDER 85 GM EXT SCH (23:13)
[2022-11-08] MEDS: TRIMETHOPRIM/POLYMYXIN B OP SCH (23:13)
[2022-11-08] MEDS: carvediloL 3.125 MG TAB PO SCH (23:22)
[2022-11-08] MEDS: INSULIN ASPART PER UNIT CHARGE SC SCH (23:26)
[2022-11-08] MEDS: MoRPHine SULFATE 2 MG/ML CARP IV PRN (23:51)
[2022-11-09 00:02] LABS: Adenovirus F 40/41 PCR Not Detected (NotDetected); Astrovirus PCR Not Detected (NotDetected); Campylobacter PCR Not Detected (NotDetected); Cryptosporidium PCR Not Detected (NotDetected); Cyclospora cayetanensis PCR Not Detected (NotDetected); Entamoeba histolytica PCR Not Detected (NotDetected); Enteroaggregative E.coli(EAEC) Not Detected (NotDetected); Enteropathogenic E.coli (EPEC) Not Detected (NotDetected); Enterotoxigenic E.coli (ETEC) Not Detected (NotDetected); Giardia lamblia PCR Not Detected (NotDetected); Norovirus GI/GII PCR Not Detected (NotDetected); Plesiomonas shigelloides PCR Not Detected (NotDetected); Rotavirus A PCR Not Detected (NotDetected); Salmonella PCR Not Detected (NotDetected); Sapovirus PCR Not Detected (NotDetected); Shiga-like Toxin E.coli (STEC) Not Detected (NotDetected); Shigella/Enteroinvasive E.coli Not Detected (NotDetected); Vibrio cholerae PCR Not Detected (NotDetected); Vibrio species PCR Not Detected (NotDetected); Yersinia enterocolitica PCR Not Detected (NotDetected)
[2022-11-09] MEDS: MAGNESIUM SULFATE / D5W 1 GM/100 ML BAG IV SCH ×3 (01:42→03:43)
[2022-11-09 04:36] LABS: Basophils # (auto) 0.01 K/uL (0.00-0.20); Basophils % (auto) 0.2 %; Eosinophils # (auto) 0.26 K/uL (0.00-0.50); Eosinophils % (auto) 5.8 %; Hematocrit (blood only) 27.1 % (37.0-47.0); Hemoglobin 9.3 g/dl (12.0-16.0); Immature Granulocytes # (auto) 0.04 K/uL (0.01-0.20); Immature Granulocytes % (auto) 0.9 %; Lymphocytes # (auto) 0.76 K/uL (1.20-3.40); Mean Corpuscular Hemoglobin 34.1 pg (25.0-34.0); Mean Corpuscular Hgb Conc 34.3 g/dL (32.0-36.0); Mean Corpuscular Volume 99.3 fL (80.0-100.0); Mean Platelet Volume 9.3 fL (9.4-12.4); Monocytes # (auto) 0.13 K/uL (0.11-0.59); Monocytes % (auto) 2.9 %; Neutrophils # (auto) 3.28 K/uL (1.40-6.50); Neutrophils % (auto) 73.2 %; Platelet Count 241 K/uL (130-400); RDW Coefficient of Variation 18.7 % (11.5-14.5); RDW Standard Deviation 66.3 fL (36.4-46.3); Red Blood Count 2.73 M/uL (4.20-5.40); White Blood Count 4.48 K/ul (4.8-10.8)
[2022-11-09] MEDS: SODIUM BICARBONATE 8.4% 150 MEQ in WATER, STERILE 1,000 ML IV SCH (04:51)
[2022-11-09 04:53] LABS: Albumin Globulin Ratio 1.1 (0.9-2); Albumin Level 2.4 gm/dl (3.4-5.0); BUN Creatinine Ratio 19.9 (10-20); Bilirubin,Total 0.5 mg/dl (0.2-1.0); Calcium 5.8 mg/dl (8.6-10.3); Est GFR (African American) 44.6 ml/min; Est GFR (Non-African American) 38.5 ml/min; Globulin 2.2 gm/dl (2.5-4.0); Magnesium 2.6 mg/dl (1.7-2.4); Phosphorus 2.2 mg/dl (2.5-4.9); Potassium 3.5 mmol/L (3.5-5.1); Total Protein 4.6 gm/dl (6.0-8.3)
[2022-11-09 05:04] LABS: Thyroid Stimulating Hormone 1.904 uIu/ml (0.300-4.500)
[2022-11-09 05:09] LABS: Ferritin 178.2 ng/ml (8-388)
[2022-11-09 07:15] LABS: Folate (Folic Acid),Ser orPlas > 22.30 ng/ml (>5.38)
[2022-11-09 07:16] LABS: Vitamin B12 1022 pg/ml (180-914)
[2022-11-09] MEDS ORDERED: POTASSIUM PHOS 3 MMOL/1 ML INFUSION IV STA (07:49)
--- NOTE | 2022-11-09 07:52 | Hospitalist Progress Note ---
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 fecal occult ordered but would be concerned about increasing PPI given hypomagnesemia/diarrhea to begin with and risk for cdiff -- PCR/cdiff testing negative -- Nutrition consulted, will attempt metamucil x 1 today to see if can bulk up stools some. consideration for imodium if needed Held lasix on admission given dehydration --> given NSS x 1L on admission, additional 150meq NaHCO3 @ 125cc/hr provided overnight (increased from initial 80cc/hr) IV mag replacement ordered --> 2.6 on repeat and will monitor Ca 6.5, albumin 2.9, ionized Ca 0.89 and held off IV replacement on admission per supervising provider. --> 1gm IV ca gluconate per nephrology for today for Ca 5.8 and improved to 6 afternoon labs Na improved and stable at 134 but down to 132, suspect volume overloaded from IVF overnight and O2 up to 6L this morning, CXR obtained w/ pulm congestion per my read/fluid in fissure Discussed w/ viri Deleon to stop IVF/provide 1x dose lasix and will monitor patient down to 2L this afternoon and will titrate to maintain sats 90% or > Also decreased hold parameters for her coreg to give unless SBP <90 instead of 100 given hx CHF and had not been given x 3 doses Nephrology consulted -- appreciate assistance. Continues on amoliride, magnesium, calcium supplementation BUN/Cr 25/1.25 on repeat and will monitor Could consider stopping her metformin given diarrhea? and A1c 5.6 Monitor ostomy output, wound RN on consult as well Neuropathy * On gabapentin 300mg QID at baseline for neuropathy. CrCl 33.4 -- should be max 900mg/daily, on 1200mg. * Adjusted to 300mg TID for now. B12 not deficient on check * STOPPING Xeloda as outlined Peeling of hands/feet * Chemotherapy related side effects of weakness but also peeling of hands/feet likely from Xeloda * --> Discussed w/ Dr Montoya who saw in ER after discussion and discussed STOPPING this medication and switching to Enhertu or fulvestrant/apelisib or elacestrant/apelisib. * Will work on arranging sooner follow up for patient at time of discharge Fungal infection to groin * Wound RN consult for groin folds/yeast infection, also for ostomy/redness * Desenex ordered -- improving on exam and do not suspect needing oral a ntifungal at this time * purewick utilized to keep skin dry, would avoid depends at home as much as possible * ?purewick at home -- will discuss w/ patient in follow up PT/OT consults to be undertaken. Strongly encouraged rehab if not strong enough for safe dc at home given does have some caregivers and family for a lot of time, but not 24/7 care at present. (2) Fall: Plan: multifactorial as above, therapy evals to be undertaken. maintain fall precautions (3) Acute conjunctivitis of both eyes: Plan: continue polymixin for now -- monitor for need for alternative agent. improving on exam (4) Acute kidney injury: Plan: BUN/Cr 31/1.68 on admission, IVF as above and renal function improving to baseline nephrology consulted as above, lasix x 1 and stopped further IVF, acidosis resolved on repeat testing Continue to monitor (5) Hypomagnesemia: Plan: low 1.4 -- IV replacement ordered, additional 3gm IV ordered overnight 2.6 on AM labs, continued output from ostomy monitor mag on repeat metamucil x 1 stool testing negative Nephrology consulted as above, concerns renal tubular acidosis, low Ca/etc as above Serial labs/electrolyte replacement as indicated (6) Hyponatremia: Plan: Na 129 on admission, suspected 2nd to dehydration, lasix held/IVF as above Improving/stable but now overloaded and lasix x 1. nephrology on consult, appreciate assistance TSH wnl monitor (7) Diastolic CHF: Plan: follows with Dr Barkley -- appears DRY on exam, recently started amiloride as well per nephrology Continue amiloride unless otherwise directed by nephrology holding scheduled lasix, losartan CHANGED hold parameters for her COREG to hold only if SBP <90 given baseline in 90-100s, not having lightheaded/dizziness at present in bed Volume overloaded on exam/CXR as above, stopped further IVF and provided lasix IV x 1 Monitor weight/intake/output (8) Malignant neoplasm of breast metastatic to bone: Plan: discussed w/ heme/onc during inpatient encounter -- to STOP her xeloda, will need f/u treatment options/sooner f/u at [facility] can call Dr Montoya for tomorrow if needed, did see in ER (9) Peeling skin: Plan: 2nd to Xeloda, last dose this AM 10/4 wound RN consulted for above STOPPING Xeloda (10) Vitamin D deficiency: Plan: recent increase as outpatient (11) Impaired mobility and ADLs: (12) Intertrigo: Plan: significant fungal infection to groins, desenex ordered as above improving on repeat eval wound RN consulted as above monitor (13) Metabolic acidosis with normal anion gap and bicarbonate losses: Plan: improving/resolved bicarb on recent lab. given NaHCO3 on admission as above, electrolyte replacement appreciate continued assistance/recommendations from nephrology Plan continued inpatient stay electrolyte replacement, nephrology consulted/following metamucil x 1 to see if able to slow ostomy output, consider imodium change parameters for coreg supplemental o2 to maintain sats pt/ot evals rec rehab -- continued therapy while inpatient -- strongly encouraged rehab if not making significant improvement for safety at home given risk for fall/fracture Admission and Anticipated Discharge Date Admission Date: November 08, 2022 Supervising Physician Co-Signing Physician Notes The patient was not seen by me. The chart was reviewed. Case discussed with ANIL Kelly. Agree with assessment and plan Subjective EVal around 1130, unaware patient up O2 requirement this morning. Patient on 5L presently to maintain sats, does endorse a little more work of breathing. Discussed cxr appearing volume overloaded and dose of IV lasix for congestion but wanting to ensure acidosis improved. She did have ostomy break open this morning, foul smelling, PCR/cdiff negative, did have blood tinge. Discussed will check/increase PPI to BID but hesitant to hold off her eliquis given hx DVT in setting of malignancy. Will plan for smaller dose lasix/IVF discontinued and purewick to keep dry. yeast to groins much improved, will await wound care consult as well. Will plan to update sister Tg as well. Updated family, stopped by to see patient following lasix administration. Back down to 2L NC, breathing stable, no tachypnea, decreased wheezing. Discussed repeat bmp w/ improvement in acidosis, will continue to monitor. Changing parameters for coreg to hold for systolic <90 rather than 100 to prevent elevated HR and continued management of her heart failure, which had been held prior. Physical Exam Physical Exam: General: chronically ill appearing female resting in bed, on 6L NAD but does report some increased work of breathing HEENT: bilateral crusting of eyes improving, pupils reactive, mmm, trachea midline, top dentures in place Resp: diminished in the bases, +wheezing throughout, no crackles/rales, on 6L, +cough CV: regular rate/rhythm, +faint murmur, no significant LE edema/calf tenderness, pulses palpable GI:+BS throughout, ostomy changed this morning, decreased erythema surrounding, no guarding/rigidity, nontender +ostomy to LLQ, green/brown output (explosion reported this morning) : purewich draining yellow urine intertrigo to groin bilaterally improving, desenex in place depends removed this morning per nursing MSK/Neuro: no focal deficit, no slurred speech, follows commands, generalized weakness R elbow with slight redness from fall/no cellulitis or sanjay step off, ROM intact b/l knee with abrasion anteriorly, pulses palpable, ROM intact generalized weakness but equal bilaterally Psych: alert to person/place, events, cooperative with exam, confusion to time of day this morning Results & Data Results & Data Vital Signs (Past 12 Hours) Vital Signs Temp Pulse Pulse Resp BP Pulse Ox O2 Del Method 11/09/22 02:45 36.7 C 90 12 94/62 L 95 Nasal Cannula 11/09/22 00:38 92 H 11/09/22 00:40 36.6 C 89 12 102/68 98 Nasal Cannula 11/08/22 22:35 85 20 106/56 L 94 Room Air 11/08/22 22:35 85 20 94 Nasal Cannula 11/08/22 20:37 88 11/08/22 20:00 85 20 91/46 L 96 Nasal Cannula O2 Flow Rate 11/09/22 02:45 2 11/09/22 00:38 11/09/22 00:40 2 11/08/22 22:35 11/08/22 22:35 2 11/08/22 20:37 11/08/22 20:00 2 Laboratory Results 11/09/22 11/09/22 11/09/22 Range/Units 03:55 03:55 03:55 WBC 4.48 L (4.8-10.8) K/ul RBC 2.73 L (4.20-5.40) M/uL Hgb 9.3 L (12.0-16.0) g/dl Hct 27.1 L (37.0-47.0) % MCV 99.3 (80.0-100.0) fL MCH 34.1 H (25.0-34.0) pg MCHC 34.3 (32.0-36.0) g/dL RDW Std Deviation 66.3 H (36.4-46.3) fL RDW Coeff of Bradford 18.7 H (11.5-14.5) % Plt Count 241 (130-400) K/uL MPV 9.3 L (9.4-12.4) fL Immature Gran % (Auto) 0.9 % Neut % (Auto) 73.2 % Lymph % (Auto) 17.0 % Gulf % (Auto) 2.9 % Eos % (Auto) 5.8 % Baso % (Auto) 0.2 % Neut # (Auto) 3.28 (1.40-6.50) K/uL Lymph # (Auto) 0.76 L (1.20-3.40) K/uL [place] # (Auto) 0.13 (0.11-0.59) K/uL Eos # (Auto) 0.26 (0.00-0.50) K/uL Baso # (Auto) 0.01 (0.00-0.20) K/uL Immature Gran # (Auto) 0.04 (0.01-0.20) K/uL Sodium 132 L (136-145) mmol/L Potassium 3.5 D (3.5-5.1) mmol/L Chloride 106 (98-107) mmol/L Carbon Dioxide 20 L (21-32) mmol/L Anion Gap 6 (3-11) BUN 28 H (6-23) mg/dl Creatinine 1.41 H (0.6-1.2) mg/dl Est Cr Clr Drug Dosing 40.0 ml/min Est GFR ( Amer) 44.6 ml/min Est GFR (Non-Af Amer) 38.5 ml/min BUN/Creatinine Ratio 19.9 (10-20) Glucose 165 H (70-99(Fasting)) mg/dl POC Glucose (70-99) mg/dl Calcium 5.8 L* (8.6-10.3) mg/dl Ionized Calcium (1.12-1.32) mmol/L Phosphorus 2.2 L (2.5-4.9) mg/dl Magnesium 2.6 H (1.7-2.4) mg/dl Iron 45 (35-150) mcg/dl TIBC 156 L (250-450) mcg/dl Unsaturated IBC 111 L (155-355) mcg/dl Transferrin % Sat 29 (15-50) % Ferritin 178.2 (8-388) ng/ml Total Bilirubin 0.5 (0.2-1.0) mg/dl AST 13 (13-39) U/L ALT 6 L (7-52) U/L Alkaline Phosphatase 46 (34-104) U/L Troponin I High Sens (0-14) pg/ml Total Protein 4.6 L D (6.0-8.3) gm/dl Albumin 2.4 L (3.4-5.0) gm/dl Globulin 2.2 L (2.5-4.0) gm/dl Albumin/Globulin Ratio 1.1 (0.9-2) Lipase (11-82) U/L Vitamin B12 1022 H (180-914) pg/ml Folate > 22.30 (>5.38) ng/ml TSH 1.904 (0.300-4.500) uIu/ml Urine Color Urine Appearance (Clear) Urine pH (4.5-7.5) Ur Specific [place] (1.000-1.030) Urine Protein (Negative) Urine Glucose (UA) (Negative) Urine Ketones (Negative) Urine Blood (Negative) Urine Nitrite (Negative) Urine Bilirubin (Negative) Urine Urobilinogen (Negative) Ur Leukocyte Esterase (Negative) Urine WBC (Auto) (0-5) /hpf Urine RBC (Auto) (0-4) /hpf U Hyaline Cast (Auto) (0-5) /lpf U Epithel Cells (Auto) (0-5) /lpf Urine Bacteria (Auto) (Negative) Urine Yeast Stl C. cayetanensis PCR (NotDetected) Stool Rotavirus A PCR (NotDetected) Stl Adenov F 40/41 PCR (NotDetected) Stool Astrovirus (PCR) (NotDetected) Stool Campylobacter PCR (NotDetected) Stl C. diff Tox B Gene (Neg) Stool Cryptosporidium PCR (NotDetected) Stl E.coli Shiga Tox PCR (NotDetected) Stl Enterotoxigenic E PCR (NotDetected) Stool EPEC (PCR) (NotDetected) Stool EAEC (PCR) (NotDetected) Stl E. histolytica PCR (NotDetected) Stool Giardia Lamblia PCR (NotDetected) Stool Salmonella PCR (NotDetected) Stool Sapovirus (PCR) (NotDetected) Stl P. shigelloides PCR (NotDetected) Stl Shigella/EIEC PCR (NotDetected) St Y.enterocolitica PCR (NotDetected) Stool Vibrio (PCR) (NotDetected) Stl Vibrio cholerae PCR (NotDetected) Stl Norovirus GI/GII PCR (NotDetected) Adenovirus (PCR) (NotDetected) B. pertussis DNA (PCR) (NotDetected) B.parapertussis DNA PCR (NotDetected) C. pneumoniae DNA (PCR) (NotDetected) Coronavirus OC43 (PCR) (NotDetected) Coronavirus HKU1 (PCR) (NotDetected) Coronavirus 229E (PCR) (NotDetected) SARS-CoV-2 (PCR) (NotDetected) Coronavirus NL63 (PCR) (NotDetected) Human Metapneumovir PCR (NotDetected) Influenza Type A (PCR) (NotDetected) Influenza Type B (PCR) (NotDetected) M. pneumoniae (PCR) (NotDetected) Parainfluenza 1 (PCR) (NotDetected) Parainfluenza 2 (PCR) (NotDetected) Parainfluenza 3 (PCR) (NotDetected) Parainfluenza 4 (PCR) (NotDetected) RSV (PCR) (NotDetected) Entero/Rhino (PCR) (NotDetected) 11/08/22 11/08/22 11/08/22 Range/Units 23:21 22:30 22:30 WBC (4.8-10.8) K/ul RBC (4.20-5.40) M/uL Hgb (12.0-16.0) g/dl Hct (37.0-47.0) % MCV (80.0-100.0) fL MCH (25.0-34.0) pg MCHC (32.0-36.0) g/dL RDW Std Deviation (36.4-46.3) fL RDW Coeff of Bradford (11.5-14.5) % Plt Count (130-400) K/uL MPV (9.4-12.4) fL Immature Gran % (Auto) % Neut % (Auto) % Lymph % (Auto) % Gulf % (Auto) % Eos % (Auto) % Baso % (Auto) % Neut # (Auto) (1.40-6.50) K/uL Lymph # (Auto) (1.20-3.40) K/uL [place] # (Auto) (0.11-0.59) K/uL Eos # (Auto) (0.00-0.50) K/uL Baso # (Auto) (0.00-0.20) K/uL Immature Gran # (Auto) (0.01-0.20) K/uL Sodium (136-145) mmol/L Potassium (3.5-5.1) mmol/L Chloride (98-107) mmol/L Carbon Dioxide (21-32) mmol/L Anion Gap (3-11) BUN (6-23) mg/dl Creatinine (0.6-1.2) mg/dl Est Cr Clr Drug Dosing ml/min Est GFR ( Amer) ml/min Est GFR (Non-Af Amer) ml/min BUN/Creatinine Ratio (10-20) Glucose (70-99(Fasting)) mg/dl POC Glucose 124 H (70-99) mg/dl Calcium (8.6-10.3) mg/dl Ionized Calcium (1.12-1.32) mmol/L Phosphorus (2.5-4.9) mg/dl Magnesium (1.7-2.4) mg/dl Iron (35-150) mcg/dl TIBC (250-450) mcg/dl Unsaturated IBC (155-355) mcg/dl Transferrin % Sat (15-50) % Ferritin (8-388) ng/ml Total Bilirubin (0.2-1.0) mg/dl AST (13-39) U/L ALT (7-52) U/L Alkaline Phosphatase (34-104) U/L Troponin I High Sens (0-14) pg/ml Total Protein (6.0-8.3) gm/dl Albumin (3.4-5.0) gm/dl Globulin (2.5-4.0) gm/dl Albumin/Globulin Ratio (0.9-2) Lipase (11-82) U/L Vitamin B12 (180-914) pg/ml Folate (>5.38) ng/ml TSH (0.300-4.500) uIu/ml Urine Color Yellow Urine Appearance Cloudy A (Clear) Urine pH 6.0 (4.5-7.5) Ur Specific [place] 1.017 (1.000-1.030) Urine Protein 1+ H (Negative) Urine Glucose (UA) Negative (Negative) Urine Ketones Negative (Negative) Urine Blood Trace H (Negative) Urine Nitrite Positive A (Negative) Urine Bilirubin Negative (Negative) Urine Urobilinogen Negative (Negative) Ur Leukocyte Esterase 3+ H (Negative) Urine WBC (Auto) >30 H (0-5) /hpf Urine RBC (Auto) 0-4 (0-4) /hpf U Hyaline Cast (Auto) 5-10 H (0-5) /lpf U Epithel Cells (Auto) 10-20 H (0-5) /lpf Urine Bacteria (Auto) 2+ H (Negative) Urine Yeast Not Reportable Stl C. cayetanensis PCR Not Detected (NotDetected) Stool Rotavirus A PCR Not Detected (NotDetected) Stl Adenov F 40/41 PCR Not Detected (NotDetected) Stool Astrovirus (PCR) Not Detected (NotDetected) Stool Campylobacter PCR Not Detected (NotDetected) Stl C. diff Tox B Gene (Neg) Stool Cryptosporidium PCR Not Detected (NotDetected) Stl E.coli Shiga Tox PCR Not Detected (NotDetected) Stl Enterotoxigenic E PCR Not Detected (NotDetected) Stool EPEC (PCR) Not Detected (NotDetected) Stool EAEC (PCR) Not Detected (NotDetected) Stl E. histolytica PCR Not Detected (NotDetected) Stool Giardia Lamblia PCR Not Detected (NotDetected) Stool Salmonella PCR Not Detected (NotDetected) Stool Sapovirus (PCR) Not Detected (NotDetected) Stl P. shigelloides PCR Not Detected (NotDetected) Stl Shigella/EIEC PCR Not Detected (NotDetected) St Y.enterocolitica PCR Not Detected (NotDetected) Stool Vibrio (PCR) Not Detected (NotDetected) Stl Vibrio cholerae PCR Not Detected (NotDetected) Stl Norovirus GI/GII PCR Not Detected (NotDetected) Adenovirus (PCR) (NotDetected) B. pertussis DNA (PCR) (NotDetected) B.parapertussis DNA PCR (NotDetected) C. pneumoniae DNA (PCR) (NotDetected) Coronavirus OC43 (PCR) (NotDetected) Coronavirus HKU1 (PCR) (NotDetected) Coronavirus 229E (PCR) (NotDetected) SARS-CoV-2 (PCR) (NotDetected) Coronavirus NL63 (PCR) (NotDetected) Human Metapneumovir PCR (NotDetected) Influenza Type A (PCR) (NotDetected) Influenza Type B (PCR) (NotDetected) M. pneumoniae (PCR) (NotDetected) Parainfluenza 1 (PCR) (NotDetected) Parainfluenza 2 (PCR) (NotDetected) Parainfluenza 3 (PCR) (NotDetected) Parainfluenza 4 (PCR) (NotDetected) RSV (PCR) (NotDetected) Entero/Rhino (PCR) (NotDetected) 11/08/22 11/08/22 11/08/22 Range/Units 22:30 19:33 19:33 WBC (4.8-10.8) K/ul RBC (4.20-5.40) M/uL Hgb (12.0-16.0) g/dl Hct (37.0-47.0) % MCV (80.0-100.0) fL MCH (25.0-34.0) pg MCHC (32.0-36.0) g/dL RDW Std Deviation (36.4-46.3) fL RDW Coeff of Bradford (11.5-14.5) % Plt Count (130-400) K/uL MPV (9.4-12.4) fL Immature Gran % (Auto) % Neut % (Auto) % Lymph % (Auto) % [place] % (Auto) % Eos % (Auto) % Baso % (Auto) % Neut # (Auto) (1.40-6.50) K/uL Lymph # (Auto) (1.20-3.40) K/uL [place] # (Auto) (0.11-0.59) K/uL Eos # (Auto) (0.00-0.50) K/uL Baso # (Auto) (0.00-0.20) K/uL Immature Gran # (Auto) (0.01-0.20) K/uL Sodium 134 L (136-145) mmol/L Potassium 4.5 (3.5-5.1) mmol/L Chloride 110 H (98-107) mmol/L Carbon Dioxide 14 L (21-32) mmol/L Anion Gap 10 (3-11) BUN 30 H (6-23) mg/dl Creatinine 1.64 H (0.6-1.2) mg/dl Est Cr Clr Drug Dosing 34.3 ml/min Est GFR ( Amer) 37.1 ml/min Est GFR (Non-Af Amer) 32.0 ml/min BUN/Creatinine Ratio 18.3 (10-20) Glucose 133 H (70-99(Fasting)) mg/dl POC Glucose (70-99) mg/dl Calcium 6.2 L (8.6-10.3) mg/dl Ionized Calcium 0.89 L (1.12-1.32) mmol/L Phosphorus (2.5-4.9) mg/dl Magnesium (1.7-2.4) mg/dl Iron (35-150) mcg/dl TIBC (250-450) mcg/dl Unsaturated IBC (155-355) mcg/dl Transferrin % Sat (15-50) % Ferritin (8-388) ng/ml Total Bilirubin (0.2-1.0) mg/dl AST (13-39) U/L ALT (7-52) U/L Alkaline Phosphatase (34-104) U/L Troponin I High Sens 8.2 (0-14) pg/ml Total Protein (6.0-8.3) gm/dl Albumin (3.4-5.0) gm/dl Globulin (2.5-4.0) gm/dl Albumin/Globulin Ratio (0.9-2) Lipase (11-82) U/L Vitamin B12 (180-914) pg/ml Folate (>5.38) ng/ml TSH (0.300-4.500) uIu/ml Urine Color Urine Appearance (Clear) Urine pH (4.5-7.5) Ur Specific [place] (1.000-1.030) Urine Protein (Negative) Urine Glucose (UA) (Negative) Urine Ketones (Negative) Urine Blood (Negative) Urine Nitrite (Negative) Urine Bilirubin (Negative) Urine Urobilinogen (Negative) Ur Leukocyte Esterase (Negative) Urine WBC (Auto) (0-5) /hpf Urine RBC (Auto) (0-4) /hpf U Hyaline Cast (Auto) (0-5) /lpf U Epithel Cells (Auto) (0-5) /lpf Urine Bacteria (Auto) (Negative) Urine Yeast Stl C. cayetanensis PCR (NotDetected) Stool Rotavirus A PCR (NotDetected) Stl Adenov F 40/41 PCR (NotDetected) Stool Astrovirus (PCR) (NotDetected) Stool Campylobacter PCR (NotDetected) Stl C. diff Tox B Gene Negative Cdiff Gene (Neg) Stool Cryptosporidium PCR (NotDetected) Stl E.coli Shiga Tox PCR (NotDetected) Stl Enterotoxigenic E PCR (NotDetected) Stool EPEC (PCR) (NotDetected) Stool EAEC (PCR) (NotDetected) Stl E. histolytica PCR (NotDetected) Stool Giardia Lamblia PCR (NotDetected) Stool Salmonella PCR (NotDetected) Stool Sapovirus (PCR) (NotDetected) Stl P. shigelloides PCR (NotDetected) Stl Shigella/EIEC PCR (NotDetected) St Y.enterocolitica PCR (NotDetected) Stool Vibrio (PCR) (NotDetected) Stl Vibrio cholerae PCR (NotDetected) Stl Norovirus GI/GII PCR (NotDetected) Adenovirus (PCR) (NotDetected) B. pertussis DNA (PCR) (NotDetected) B.parapertussis DNA PCR (NotDetected) C. pneumoniae DNA (PCR) (NotDetected) Coronavirus OC43 (PCR) (NotDetected) Coronavirus HKU1 (PCR) (NotDetected) Coronavirus 229E (PCR) (NotDetected) SARS-CoV-2 (PCR) (NotDetected) Coronavirus NL63 (PCR) (NotDetected) Human Metapneumovir PCR (NotDetected) Influenza Type A (PCR) (NotDetected) Influenza Type B (PCR) (NotDetected) M. pneumoniae (PCR) (NotDetected) Parainfluenza 1 (PCR) (NotDetected) Parainfluenza 2 (PCR) (NotDetected) Parainfluenza 3 (PCR) (NotDetected) Parainfluenza 4 (PCR) (NotDetected) RSV (PCR) (NotDetected) Entero/Rhino (PCR) (NotDetected) 11/08/22 11/08/22 11/08/22 Range/Units 17:44 16:10 16:10 WBC 6.84 (4.8-10.8) K/ul RBC 3.06 L (4.20-5.40) M/uL Hgb 10.4 L (12.0-16.0) g/dl Hct 30.5 L (37.0-47.0) % MCV 99.7 (80.0-100.0) fL MCH 34.0 (25.0-34.0) pg MCHC 34.1 (32.0-36.0) g/dL RDW Std Deviation 65.4 H (36.4-46.3) fL RDW Coeff of Bradford 18.3 H (11.5-14.5) % Plt Count 290 (130-400) K/uL MPV 9.5 (9.4-12.4) fL Immature Gran % (Auto) 1.2 % Neut % (Auto) 77.5 % Lymph % (Auto) 14.5 % [place] % (Auto) 3.5 % Eos % (Auto) 2.9 % Baso % (Auto) 0.4 % Neut # (Auto) 5.30 (1.40-6.50) K/uL Lymph # (Auto) 0.99 L (1.20-3.40) K/uL [place] # (Auto) 0.24 (0.11-0.59) K/uL Eos # (Auto) 0.20 (0.00-0.50) K/uL Baso # (Auto) 0.03 (0.00-0.20) K/uL Immature Gran # (Auto) 0.08 (0.01-0.20) K/uL Sodium 129 L (136-145) mmol/L Potassium 4.5 (3.5-5.1) mmol/L Chloride 106 (98-107) mmol/L Carbon Dioxide 15 L (21-32) mmol/L Anion Gap 8 (3-11) BUN 31 H (6-23) mg/dl Creatinine 1.68 H (0.6-1.2) mg/dl Est Cr Clr Drug Dosing 33.4 ml/min Est GFR ( Amer) 36.1 ml/min Est GFR (Non-Af Amer) 31.1 ml/min BUN/Creatinine Ratio 18.5 (10-20) Glucose 136 H (70-99(Fasting)) mg/dl POC Glucose (70-99) mg/dl Calcium 6.5 L (8.6-10.3) mg/dl Ionized Calcium (1.12-1.32) mmol/L Phosphorus 2.8 (2.5-4.9) mg/dl Magnesium 1.3 L (1.7-2.4) mg/dl Iron (35-150) mcg/dl TIBC (250-450) mcg/dl Unsaturated IBC (155-355) mcg/dl Transferrin % Sat (15-50) % Ferritin (8-388) ng/ml Total Bilirubin 0.7 (0.2-1.0) mg/dl AST 12 L (13-39) U/L ALT 7 (7-52) U/L Alkaline Phosphatase 57 (34-104) U/L Troponin I High Sens (0-14) pg/ml Total Protein 5.6 L (6.0-8.3) gm/dl Albumin 2.9 L (3.4-5.0) gm/dl Globulin 2.7 (2.5-4.0) gm/dl Albumin/Globulin Ratio 1.1 (0.9-2) Lipase 32 (11-82) U/L Vitamin B12 (180-914) pg/ml Folate (>5.38) ng/ml TSH (0.300-4.500) uIu/ml Urine Color Urine Appearance (Clear) Urine pH (4.5-7.5) Ur Specific [place] (1.000-1.030) Urine Protein (Negative) Urine Glucose (UA) (Negative) Urine Ketones (Negative) Urine Blood (Negative) Urine Nitrite (Negative) Urine Bilirubin (Negative) Urine Urobilinogen (Negative) Ur Leukocyte Esterase (Negative) Urine WBC (Auto) (0-5) /hpf Urine RBC (Auto) (0-4) /hpf U Hyaline Cast (Auto) (0-5) /lpf U Epithel Cells (Auto) (0-5) /lpf Urine Bacteria (Auto) (Negative) Urine Yeast Stl C. cayetanensis PCR (NotDetected) Stool Rotavirus A PCR (NotDetected) Stl Adenov F 40/41 PCR (NotDetected) Stool Astrovirus (PCR) (NotDetected) Stool Campylobacter PCR (NotDetected) Stl C. diff Tox B Gene (Neg) Stool Cryptosporidium PCR (NotDetected) Stl E.coli Shiga Tox PCR (NotDetected) Stl Enterotoxigenic E PCR (NotDetected) Stool EPEC (PCR) (NotDetected) Stool EAEC (PCR) (NotDetected) Stl E. histolytica PCR (NotDetected) Stool Giardia Lamblia PCR (NotDetected) Stool Salmonella PCR (NotDetected) Stool Sapovirus (PCR) (NotDetected) Stl P. shigelloides PCR (NotDetected) Stl Shigella/EIEC PCR (NotDetected) St Y.enterocolitica PCR (NotDetected) Stool Vibrio (PCR) (NotDetected) Stl Vibrio cholerae PCR (NotDetected) Stl Norovirus GI/GII PCR (NotDetected) Adenovirus (PCR) Not Detected (NotDetected) B. pertussis DNA (PCR) Not Detected (NotDetected) B.parapertussis DNA PCR Not Detected (NotDetected) C. pneumoniae DNA (PCR) Not Detected (NotDetected) Coronavirus OC43 (PCR) Not Detected (NotDetected) Coronavirus HKU1 (PCR) Not Detected (NotDetected) Coronavirus 229E (PCR) Not Detected (NotDetected) SARS-CoV-2 (PCR) Not Detected (NotDetected) Coronavirus NL63 (PCR) Not Detected (NotDetected) Human Metapneumovir PCR Not Detected (NotDetected) Influenza Type A (PCR) Not Detected (NotDetected) Influenza Type B (PCR) Not Detected (NotDetected) M. pneumoniae (PCR) Not Detected (NotDetected) Parainfluenza 1 (PCR) Not Detected (NotDetected) Parainfluenza 2 (PCR) Not Detected (NotDetected) Parainfluenza 3 (PCR) Not Detected (NotDetected) Parainfluenza 4 (PCR) Not Detected (NotDetected) RSV (PCR) Not Detected (NotDetected) Entero/Rhino (PCR) Not Detected (NotDetected) Diagnostic Findings Chest X-Ray 11/08/22 16:41 XR chest 1V portable CLINICAL HISTORY: weakness TECHNIQUE: Single frontal radiograph of the chest was obtained. Comparison: Comparison is made to chest radiograph 08/28/2022 FINDINGS: Surgical clips are seen in the left axilla and plate and screw fixation hardware is seen over the left distal humerus. Calcified aortic knob is seen. Reticular interstitial opacities are seen. No evidence of pleural effusion or pneumothorax. IMPRESSION: No acute chest disease. ACT 112: Negative or not required by law. Electronically signed by: Tucker Johnson M.D. 11/08/2022 5:09 PM Humerus X-Ray 11/08/22 17:28 XR humerus RT 2V CLINICAL HISTORY: r hum pain TECHNIQUE: 2 radiographic views of the right humerus were obtained. Comparison: None available at the time of this dictation. FINDINGS: There is no evidence for fracture, subluxation or dislocation. The visualized portion of the shoulder and elbow joints are unremarkable. There is normal bone mineralization. The overlying soft tissues are unremarkable. IMPRESSION: No acute osseous injury ACT 112: Negative or not required by law. Electronically signed by: Tucker Johnson M.D. 11/08/2022 6:03 PM PG Care Time/CCT Total # of Minutes Spent Total Time Spent with Patient: Total time spent is greater than 50% in coordination of care (as documented) at patient's floor/unit and/or counseling patient: Coding Level of Care Code 10198 SUB INP/OBS CARE 3/50MIN Diagnoses Weakness R53.1 Fall W19.XXXA Acute conjunctivitis of both eyes H10.33 Acute kidney injury N17.9 Hypomagnesemia E83.42 Hyponatremia E87.1 Diastolic CHF I50.30 Malignant neoplasm of breast metastatic to bone C50.919; C79.51 Peeling skin R23.4 Vitamin D deficiency E55.9 Impaired mobility and ADLs Z74.09; Z78.9 Intertrigo L30.4 Metabolic acidosis with normal anion gap and bicarbonate losses E87.20
[2022-11-09] MEDS ORDERED: POTASSIUM PHOSPHATE 15 MMOL in SODIUM CHLORIDE 0.9% 250 ML IV ONE (08:00)
[2022-11-09] MEDS: cefTRIAXone SODIUM 1,000 MG in DEXTROSE 5% 50 ML IV SCH (08:23)
[2022-11-09] MEDS ORDERED: STAT IV STA (08:32)
[2022-11-09] MEDS: ERGOCALCIFEROL 50,000 UNITS 1250 MCG CAP PO SCH (08:37)
[2022-11-09] MEDS: PARoxetine HCL 20 MG TAB PO SCH (08:37)
[2022-11-09] MEDS: CALCIUM 600MG + VIT D 400 IU TAB PO SCH (08:37)
[2022-11-09] MEDS: PANTOprazole 40 MG TAB PO SCH (08:38)
[2022-11-09] MEDS: MAGNESIUM CHLORIDE W/CALCIUM 64MG DELAYED REL TAB PO SCH (08:38)
[2022-11-09] MEDS: carvediloL 3.125 MG TAB PO SCH ×2 (08:39→20:38)
[2022-11-09] MEDS: APIXABAN 5 MG TABLET PO SCH ×2 (08:39→20:38)
[2022-11-09] MEDS: GABAPENTIN 300 MG CAP PO SCH ×3 (08:40→20:38)
[2022-11-09] MEDS: MAGNESIUM OXIDE 400 MG TAB PO SCH ×2 (08:40→20:38)
[2022-11-09] MEDS: MICONAZOLE NITRATE POWDER 85 GM EXT SCH ×2 (08:40→20:38)
[2022-11-09] MEDS: TRIMETHOPRIM/POLYMYXIN B OP SCH ×5 (08:41→20:39)
[2022-11-09] MEDS ORDERED: CALCIUM GLUCONATE 10% 1,000 MG in SODIUM CHLOR 0.9% MINI-B 50 ML IV ONE (08:45)
[2022-11-09] MEDS ORDERED: FOLIC ACID 1 MG TAB PO SCH (09:00)
[2022-11-09] MEDS ORDERED: aMILoride HCL 5 MG TAB PO SCH (09:00)
[2022-11-09] MEDS: INSULIN ASPART PER UNIT CHARGE SC SCH ×4 (09:15→20:39)
--- NOTE | 2022-11-09 11:34 | XRay Report ---
XR chest 1V portable CLINICAL HISTORY: hypoxia TECHNIQUE: Single frontal radiograph of the chest was obtained. Comparison: Comparison is made to chest radiograph 11/08/2022 FINDINGS: No lines and tubes are seen. Calcified aortic knob is seen. Reticular interstitial opacities are seen . No evidence of pleural effusion or pneumothorax. IMPRESSION: Interstitial opacities without evidence of airspace disease. ACT 112: Negative or not required by law. Electronically signed by: Tucker Johnson M.D. 11/09/2022 11:32 AM
[2022-11-09] MEDS ORDERED: FUROSEMIDE INJ 20 MG/2 ML VIAL IV ONE (12:48)
[2022-11-09 12:52] LABS: Creatinine Clr Calc Pharmacy 45.1 ml/min; Est GFR (African American) 51.5 ml/min; Est GFR (Non-African American) 44.5 ml/min; Potassium 4.1 mmol/L (3.5-5.1)
--- NOTE | 2022-11-09 13:32 | Nephrology Consultation ---
Date of Consultation November 09, 2022 Assessment & Plan (1) Acute kidney injury: (2) Hypomagnesemia: (3) Hypocalcemia: (4) Hypotension: (5) Hyponatremia: (6) Metabolic acidosis with normal anion gap and bicarbonate losses: Plan 66 y o F with h/o metastatic breast ca to bone, h/o ostomy and multiple electrolyte abnormalities, admitted with generalized weakness and electrolyte abnormalities. Overall clinically improving, electrolytes improved. BP has been low, clinically did not have any sign of volume overloaded --stop Amlodipine --start on calcitriol 0.5 mcg daily, increase dose as needed. --continue Amiloride, mag supplement. --monitor labs in am Thank you for allowing me to participate in your patient's care. It was a pleasure to see Yamel. History of Present Illness Reason for Consultation: Ms. Yamel Ojeda is a 66 year-old female with PMH of significant electrolyte disorders including hypocalcemia, hypomagnesemia, Proximal RTA, h/o metastatic breast ca admitted with generalized weakness. Nephrology consult was requested for further management. EMR records were reviewed ind etail during visit. Yamel presented to the ER yesterday with generalized weakness which started 2 days prior to arrival. Denied headache or change in vision, CP, SOB, N/V or diarrhea. No dyuria, hematuria, flank pain. Has been having significant ostomy output. She fell onto her knee while getting in the car. h/o neuropathy and peeling skin off of her hands and feet. BP has been low. Xray was negative for fracture, CXR unremarkable. Lab showed WBC 6.4, Hgb 10.4. Na 129, K 4.5. BUN/Cr 31/1.68. Mag 1.3. Albumin 2.9. Urinalysis with low grade proteinuria, no hematuria, 2+ bacteria. She was given 1L NS bolus and 2gm IV magnesium. PMH significant for metastatic breast cancer to bone diagnosed in 1994, s/p L mastectomy and 4 cycles of Adriamycin and cyclophosphamide followed by adjuvant Tamoxifen (discontinued due to left eye thrombosis). In 2004, she underwent prophylactic right mastectomy for a significant family history. Unfortunately, she did develop recurrent malignancy presenting as a chest wall mass pathology with ductal CA ER/OH +. She started treatment with Xeloda in June 2020 with Femara and Xgeva. Currently has bony metastatic disease, no brain mets. Xgeva is causing chronic hypocalcemia, on supplement. h/o recurrent episodes of OZIEL but baseline cr 1.1 to 1.2. h/o colostomy for a history of polyps, occasional high ostomy out put causing significant electrolyte issues notably hypomagnesemia, on Magnesium oxide, magnesium chloride well and Amiloride. Has HFpEF for which she follows with Dr. Barkley. On metformin for DM. On eliquis for hx DVT in her left leg. Chronic anemia, adequate iron stor4e, T sat 29%, Ferritin 178, Hb 9.3. Current active smoker. No pertinent f/h. She reports overall feeling slightly better this morning. Appetite has been decent. Lab this am showed cr 1,4, Ca 5.8, Hb 9.3, Na improved to 132, HCO3 20, Mg>2 Attending Physician: Devante Pascual MD Allergies Allergy/AdvReac Type Severity Reaction Status Date / Time aspirin Allergy Mild hives Verified 11/08/22 20:27 ibuprofen Allergy Mild hives Verified 11/08/22 20:27 tamoxifen Allergy Unknown temporary Verified 11/08/22 20:27 left eye vision loss Home Medications Medication Instructions Recorded Confirmed Type acetaminophen 500 mg tablet 500 mg PO Q6H PRN Pain 04/13/20 11/08/22 History (Tylenol Extra Strength) paroxetine HCl 30 mg tablet (Paxil) 30 mg PO QAM #90 tabs 09/30/21 11/08/22 Rx furosemide 40 mg tablet 40 mg PO QAM #90 tabs 10/11/21 11/08/22 Rx fulvestrant 250 mg/5 mL 500 mg (10 mL) IM ONCE 3 doses #10 03/14/22 11/08/22 Rx intramuscular syringe mL apixaban 5 mg tablet (Eliquis) 5 mg PO BID DVT #180 tabs 05/01/22 11/08/22 Rx Wheelchair (Manual) #1 ea 07/14/22 11/08/22 Rx losartan 25 mg tablet 12.5 mg PO QPM #15 tabs 07/21/22 11/08/22 Rx metformin 1,000 mg tablet 1,000 mg PO BID #180 tabs 07/24/22 11/08/22 Rx carvedilol 3.125 mg tablet 3.125 mg PO BID #180 tabs 08/18/22 11/08/22 Rx gabapentin 300 mg capsule 300 mg PO .COMPLEX #360 caps 09/04/22 11/08/22 Rx magnesium oxide 400 mg (241.3 mg 800 mg PO BID #90 tabs 10/16/22 11/08/22 Rx magnesium) tablet atorvastatin 10 mg tablet 10 mg PO QPM #90 tabs 10/23/22 11/08/22 Rx ergocalciferol (vitamin D2) 1,250 1,250 mcg PO .COMPLEX #8 caps 10/25/22 11/08/22 Rx mcg (50,000 unit) capsule omeprazole 20 mg capsule,delayed 20 mg PO QAM #90 caps 10/30/22 11/08/22 Rx release potassium chloride 20 mEq 20 meq PO QAM #90 tabs 10/30/22 11/08/22 Rx tablet,extended release amiloride 5 mg tablet 5 mg PO QAM 11/08/22 11/08/22 History calcium carbonate 600 mg-vitamin 1 tab PO DAILY 11/08/22 11/08/22 History D3 10 mcg (400 unit) tablet (Calcium 600 + D(3)) magnesium chloride 64 mg 64 mg PO BID 11/08/22 11/08/22 History (magnesium chloride) tablet,delayed release Patient History Medical History (HFpEF) heart failure with preserved ejection fraction Abnormal CT scan recent CT @ [place] w/ evidence 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 Barkley Chronic systolic CHF (congestive heart failure), NYHA class [address] 2017 (after diverticular perforation complications) Depression Diabetes Difficult intravenous access difficult IV access Left arm Discharge of eye, right Diverticular disease DM type 2 (diabetes mellitus, type 2) NIDDM Encounter for pre-operative examination Hyperlipidemia Left leg DVT started on eliquis. repeat doppler in 07/2021. Lumbar disc herniation with radiculopathy LV dysfunction Metastatic breast cancer hx chemo, radiation + surgery Morbid obesity PAC (premature atrial contraction) h/o PVC (premature ventricular contraction) h/o Surgical History H/O bilateral mastectomy denies limb restriction History of cardiac cath 2017 - [place] - cardiomyopathy - no stents/angioplasty History of humerus fracture (03/26/20) with open reduction and internal fixation due to pathological fracture (Dr. Gillette) History of hysterectomy History of intestinal surgery History of lumbar laminectomy History of surgery for malignant neoplasm 2017 removal of substernal mass + radiation Family History Mother Breast cancer Sister Breast cancer Father Myocardial infarction Prostate cancer Other Cancer Heart disease Hypertension Denies family history of Ovarian cancer Colorectal cancer Social History Smoking Status: Current every day smoker Tobacco Type: Cigarettes Age Started Using Tobacco: 15; Cigarettes Per Day: 3/4 pack per day; Second Hand Exposure: No; Do You Dip or Chew Tobacco: No; Tobacco Cessation Education Requested by Patient: No Hx Alcohol Use: No Hx Substance Use: No Preferred Language: Korean Communication Ability: Effective Visual Impairment: No Limitations Transmission And Coordination Engineer Required: No Beliefs That Will Affect Care: None marital status: Single Current Living Situation: Alone Current Living Situation Comment: with caregivers current occupational status: retired How many Children do You have: 0 Other Information That Helps Us Care for You: No Feels Safe at Home: Yes Safety Concerns: Feels Safe At This Time Childhood Exposure to Second-Hand Smoke: No Diet: regular caffeine: Yes Dental Care, Regularly: Yes Physical Activity Frequency: Does not Exercise Seatbelt Use: never Sunscreen Use: Yes Assistive Devices: Cane and Walker Review of Systems Review of Systems: Detail review of system was done and pertinent positives and negatives are mentioned above. Physical Exam Constitutional: WD/WN, vitals as above + ill appearing; no acute distress Eyes: + anicteric sclerae ENMT: Ears: no hearing impairment Neck: normal visual inspection Respiratory: no respiratory distress and no cough Auscultation: lungs clear to auscultation bilaterally Cardiovascular: RRR, no murmur, no edema Gastrointestinal (Abdomen): Percussion/Palpation: abdomen soft; abdomen nonte nder LLQ ostomy Musculoskeletal: Extremities: extremities normal to inspection Neurologic: no focal motor deficits Psychiatric: Orientation: alert and oriented x 3 Affect: euthymic affect Results & Data Vital Signs (Past 12 Hours) Vital Signs Temp Pulse Pulse Resp BP Pulse Ox Pulse Ox 11/09/22 12:17 90 11/09/22 11:50 36.9 C 96 H 16 96 11/09/22 11:03 11/09/22 08:36 37.0 C 98 H 20 98/64 L 94 11/09/22 02:45 36.7 C 90 12 94/62 L 95 Pulse Ox O2 Del Method O2 Flow Rate O2 Flow Rate O2 Flow Rate 11/09/22 12:17 78 L 6 0 11/09/22 11:50 Nasal Cannula 5 11/09/22 11:03 Nasal Cannula 6 11/09/22 08:36 Nasal Cannula 6 11/09/22 02:45 Nasal Cannula 2 PG Care Time/CCT Total # of Minutes Spent Total Time Spent with Patient: Total time spent is greater than 50% in coordination of care (as documented) at patient's floor/unit and/or counseling patient: Coding Level of Care Code 70887 INT INP/OBS CARE 3/75MIN Diagnoses Acute kidney injury N17.9 Hypomagnesemia E83.42 Hypocalcemia E83.51 Hypotension I95.9 Hyponatremia E87.1 Metabolic acidosis with normal anion gap and bicarbonate losses E87.20
[2022-11-09] MEDS ORDERED: PSYLLIUM or GUAR GUM FIBER POWDER PACKET PO ONE (14:30)
--- NOTE | 2022-11-09 14:59 | Electrocardiogram Report ---
Test Reason : Blood Pressure : / mmHG Vent. Rate : 094 BPM Atrial Rate : 094 BPM P-R Int : 188 ms QRS Dur : 080 ms QT Int : 376 ms P-R-T Axes : 080 066 083 degrees QTc Int : 470 ms Normal sinus rhythm Low voltage QRS Poor R wave progression, consider anterior RI vs. lead placement vs. LVH Abnormal ECG When compared with ECG of 21-JUN-2022 11:37, Nonspecific T wave abnormality no longer evident in Anterior leads Confirmed by Cr Alcantar ([id number]) on 11/09/2022 2:59:44 PM Referred By: REFERRED SELF Confirmed By:Orville Alcantar
[2022-11-09] MEDS: ATORVASTATIN 10 MG TAB PO SCH (20:38)
--- NOTE | 2022-11-09 22:30 | XRay Report ---
SINGLE VIEW PELVIS; 2 VIEWS RIGHT FEMUR CLINICAL HISTORY: Fall. Right leg pain. FINDINGS: AP view of the pelvis with AP and crosstable lateral views of the right femur are obtained. Comparison is made to pelvic radiographs dated 06/21/2022. The skeletal structures are osteopenic. Th ere is no radiographic evidence of acute fracture involving the hips or bony pelvis. There is no radi ographic evidence of right femoral fracture. A left hip arthroplasty is in near-anatomic alignment. N o periprosthetic lucency is seen. Moderate osteoarthritic change and joint space narrowing is seen in the right hip. Degenerative sclerosis is noted in the sacroiliac joints. The right knee joint is maxine ssly maintained noting arthritic change. The overlying soft tissues are within normal limits. There i s atherosclerotic calcification of the right femoral and popliteal arteries. IMPRESSION: 1. No acute bony abnormality is seen involving the hips or pelvis. 2. There is no radiographic evidence of right femoral fracture. 3. A left hip arthroplasty is in near anatomic alignment. Electronically signed by: Curtis Soriano M.D. 11/09/2022 10:29 PM
[2022-11-10 05:14] LABS: Basophils # (auto) 0.01 K/uL (0.00-0.20); Basophils % (auto) 0.2 %; Eosinophils # (auto) 0.39 K/uL (0.00-0.50); Eosinophils % (auto) 9.5 %; Hematocrit (blood only) 28.1 % (37.0-47.0); Hemoglobin 9.7 g/dl (12.0-16.0); Immature Granulocytes # (auto) 0.04 K/uL (0.01-0.20); Lymphocytes # (auto) 0.91 K/uL (1.20-3.40); Lymphocytes % (auto) 22.1 %; Mean Corpuscular Hemoglobin 33.6 pg (25.0-34.0); Mean Corpuscular Hgb Conc 34.5 g/dL (32.0-36.0); Mean Corpuscular Volume 97.2 fL (80.0-100.0); Mean Platelet Volume 9.2 fL (9.4-12.4); Monocytes # (auto) 0.21 K/uL (0.11-0.59); Monocytes % (auto) 5.1 %; Neutrophils # (auto) 2.55 K/uL (1.40-6.50); Neutrophils % (auto) 62.1 %; Platelet Count 262 K/uL (130-400); RDW Coefficient of Variation 18.3 % (11.5-14.5); RDW Standard Deviation 63.4 fL (36.4-46.3); Red Blood Count 2.89 M/uL (4.20-5.40); White Blood Count 4.11 K/ul (4.8-10.8)
[2022-11-10 05:35] LABS: BUN Creatinine Ratio 17.5 (10-20); Calcium 6.1 mg/dl (8.6-10.3); Creatinine Clr Calc Pharmacy 41.2 ml/min; Est GFR (African American) 46.1 ml/min; Est GFR (Non-African American) 39.8 ml/min; Magnesium 2.4 mg/dl (1.7-2.4); Phosphorus 2.8 mg/dl (2.5-4.9); Potassium 3.5 mmol/L (3.5-5.1)
[2022-11-10] MEDS: cefTRIAXone SODIUM 1,000 MG in DEXTROSE 5% 50 ML IV SCH (06:02)
[2022-11-10] MEDS: INSULIN ASPART PER UNIT CHARGE SC SCH ×4 (06:23→20:35)
--- NOTE | 2022-11-10 07:52 | Hospitalist Progress Note ---
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 fecal occult ordered but would be con cerned about increasing PPI given hypomagnesemia/diarrhea to begin with and risk for cdiff -- PCR/cdiff testing negative -- Nutrition consulted, attempting metamucil x 1 on 11/09, continued copious out put. Imodium x 1 and will schedule TID for today -- will dc mag oxide 800mg BID, increase slow mag to BID dosing CTAP for further eval given fall [employer] Lasix held on admission but pulm edema/wheezing, lasix IV x1 provided and additional dose for today with PO KCL Continue amiloride daily per nephrology, Nephrology on consult - appreciate assistance Acidosis resolved on AM labs, CO2 23., mag 2.4 Got dose 1gm IV ca gluconate, Ca6.1 on AM labs, ionized ca 0.87 Calcitriol increased to 1mcg daily, continue PO ca-carb, ergocalciferol replacement. ?consideration to stop metformin given A1c 5.6, diarrhea/output from ostomy. On hold while inpatient Monitor labs/electrolyte replacement as needed on repeat UTI --> placed on ceftriaxone IV on admission for UA appearing infected. Blood cultures NGTD --> urine cx w/ pseudomonoas, ceftriaxone WOULD NOT HAVE COVERED SUCH, possible why having some intermittent confusion at times (although per family, occassionally like this) --> switching to PO Cipro BID for 3 days for treatment given "asymptomatic" Lyme testing, equivocal Checked for alternative causes for weakness, IgM equivocal, IgG negative. Never tx for such in the past -> Given weakness, will continue the ceftriaxone but increased to 2gm IV in case of neurologic involvement Neuropathy * 2nd to acute on chronic neuropathy, worsened by Xeloda use for chemo which has been stopped * B12 not deficient * On gabapentin 300mg QID at baseline for neuropathy. CrCl 33.4 -- should be max 900mg/daily, on 1200mg. Adjusted to 300mg TID for now. Peeling of hands/feet * Chemotherapy related side effects of weakness but also peeling of hands/feet likely from Xeloda * --> Discussed w/ Dr Montoya who saw in ER after discussion and discussed STOPPING this medication and switching to Enhertu or fulvestrant/apelisib or elacestrant/apelisib. * Will work on arranging sooner follow up for patient at time of discharge * Appearance of fingers/toes improving Fungal infection to groin * Wound RN consult for groin folds/yeast infection, also for ostomy/redness * Desenex ordered -- improving on exam and do not suspect needing oral antifungal at this time * purewick utilized to keep skin dry, would avoid depends at home as much as possible * ?purewick at home -- will discuss w/ patient in follow up PT/OT consults to be undertaken. Strongly encouraged rehab if not strong enough for safe dc at home given does have some caregivers and family for a lot of time, but not 24/7 care at present. At current level of activity, not safe to return home, max 2 assist Of note, patient had unreported fall to ground in ER which was not reported. Contacted nursing/charge, ER to do event report. No head trauma to warrant CT at present however did obtain imaging of right femur/hip, no acute fracture thankfully (2) Urinary tract infection: Plan: as above, pseudomonas on urine cx, cipro for treatment. planning 3 days given "asymptomatic", blood cultures NGTD (3) Fall: Plan: multifactorial as above, therapy evals. maintain fall precautions tx UTI, possible Lyme, electrolyte abnormalities as above Obtaining echo to eval any worsening EF to attribute to volume overload -- had previoulsy had low EF, but 2021 echo w/ normal EF. Denies hx BLAKE/snoring, etc. Not completely ruled out (4) Acute conjunctivitis of both eyes: Plan: continue polymixin for now -- monitor for need for alternative agent. improving on exam (5) Acute kidney injury: Plan: BUN/Cr 31/1.68 on admission, IVF as above and renal function improving to baseline nephrology consulted as above, lasix x 1 and stopped further IVF, acidosis resolved on repeat testing and additional lasix x1 for today but will not schedule renal dosed meds w/ gabapentin as above nephrology on consult as above calcitriol increased to 1mcg daily, continue PO supplementation Continue to monitor (6) Hypomagnesemia: Plan: low 1.4 -- IV replacement ordered, additional 3gm IV ordered overnight 2.6 on AM labs, continued output from ostomy but stable on repeat at 2.4 Metamucil yesterday, stool testing negative Will schedule imodium for today, discontinue mag oxide 800mg BID and increase slow mag to BID Nephrology consulted as above, concerns renal tubular acidosis, low Ca/etc as above Serial labs/electrolyte replacement as indicated (7) Hyponatremia: Plan: Na 129 on admission, suspected 2nd to dehydration, lasix held/IVF as above Improving/stable but then overloaded/wheezing, lasix day prior and 131 on AM labs TSH wnl Will monitor in AM, if remaining low, will obtain urine studies nephrology on consult, appreciate assistance (8) Diastolic CHF: Plan: follows with Dr Barkely -- appeared DRY on exam on admission, recently started amiloride as well per nephrology Continue amiloride unless otherwise directed by nephrology holding scheduled lasix, losartan CHANGED hold parameters for her COREG to hold only if SBP <90 given baseline in 90-100s, not having lightheaded/dizziness at present in bed Volume overloaded on exam/CXR as above, stopped further IVF and provided lasix IV x 1 yesterday, additional 20mg IV for today and checking ECHO Monitor weight/intake/output (9) Malignant neoplasm of breast metastatic to bone: Plan: discussed w/ heme/onc during inpatient encounter -- to STOP her xeloda, will need f/u treatment options/sooner f/u at [facility] can call Dr Montoya for tomorrow if needed, did see in ER (10) Peeling skin: Plan: 2nd to Xeloda, last dose AM 11/08 wound RN consulted for above STOPPING Xeloda (11) Vitamin D deficiency: Plan: recent increase as outpatient, calcitriol increase as above (12) Impaired mobility and ADLs: Plan: likely need for rehab, neuropathy worsening ADLs, stopping xeloda as above (13) Intertrigo: Plan: significant fungal infection to groins, desenex ordered as above improving on repeat eval wound RN consulted as above monitor (14) Metabolic acidosis with normal anion gap and bicarbonate losses: Plan: improving/resolved bicarb on recent lab. given NaHCO3 on admission as above, electrolyte replacement appreciate continued assistance/recommendations from nephrology Plan continued inpatient stay, electrolyte replacement, attempting to slow ostomy output CTAP for further eval Urine cx w/ PSEUDOMONAS, placed on Cipro PO for UTI coverage Lyme equivocal, continue Ceftriaxone, but increased to 2gm daily to cover for neurological symptoms Admission and Anticipated Discharge Date Admission Date: November 08, 2022 Supervising Physician Co-Signing Physician Notes The patient was not seen by me. The chart was reviewed. Case discussed with AINL Kelly. Agree with assessment and plan Subjective eval this morning, sleeping in bed, weakness. Not much appetite. +cough, clear sputum reported. Some increased LE edema and discussed dose of lasix. Up 3.5L since admission w/ IVF/bicarb/Mag replacement/etc. Ostomy continues with increased brown/greenish output, asked RN to change. Will start imodium to see if able to help slow. Discussed ECHO to eval EF/valvular dysfunction, notes they did that this morning. Will await results. If ongoing issues, may consider abdominal imaging/GI consultation. Physical Exam Physical Exam: General: chronically ill appearing female resting in bed, slightly improved from yesterday on 2-3L NC to maintain sats, reports breathing feels a little better, poor PO intake HEENT: bilateral crusting of eyes improving, pupils reactive, mm slightly dry, trachea midline, top dentures in place Resp: diminished in the bases, decreased wheezing, no crackles/rales, 2L NC CV: regular rate/rhythm, +faint murmur, trace pedal edema bilaterally, calves nontender GI:+BS throughout, ostomy with copious brown/green output (RN to empty), decreased surrounding erythema, nontender, slight distention : purewich draining yellow urine intertrigo to groin bilaterally improving, desenex in place MSK/Neuro/skin: no focal deficit, no slurred speech, follows commands, generalized weakness R elbow with slight redness from fall/no cellulitis or sanjay step off, ROM intact b/l knee with abrasion anteriorly, pulses palpable, ROM intact generalized weakness but equal bilaterally bilateral peeling of hands/feet, decreased purple discoloration Psych: alert to person/place, intermittent confusion to time of day, pleasant and cooperative with exam but fatigued appearing Results & Data Results & Data Vital Signs (Past 12 Hours) Vital Signs Temp Pulse Pulse Resp BP Pulse Ox O2 Del Method 11/10/22 06:55 36.8 C 79 20 92/60 L 97 Nasal Cannula 11/10/22 03:52 36.6 C 95 H 16 89/57 L 96 Nasal Cannula 11/09/22 23:59 97 H 11/09/22 23:31 36.8 C 95 H 16 82/51 L 96 Nasal Cannula 11/09/22 20:06 37 C 94 H 16 77/48 L 94 Nasal Cannula O2 Flow Rate 11/10/22 06:55 2 11/10/22 03:52 2 11/09/22 23:59 11/09/22 23:31 2 11/09/22 20:06 2 Laboratory Results 11/10/22 11/10/22 11/10/22 Range/Units 12:20 08:31 08:06 WBC (4.8-10.8) K/ul RBC (4.20-5.40) M/uL Hgb (12.0-16.0) g/dl Hct (37.0-47.0) % MCV (80.0-100.0) fL MCH (25.0-34.0) pg MCHC (32.0-36.0) g/dL RDW Std Deviation (36.4-46.3) fL RDW Coeff of [place] (11.5-14.5) % Plt Count (130-400) K/uL MPV (9.4-12.4) fL Immature Gran % (Auto) % Neut % (Auto) % Lymph % (Auto) % [place] % (Auto) % Eos % (Auto) % Baso % (Auto) % Neut # (Auto) (1.40-6.50) K/uL Lymph # (Auto) (1.20-3.40) K/uL [place] # (Auto) (0.11-0.59) K/uL Eos # (Auto) (0.00-0.50) K/uL Baso # (Auto) (0.00-0.20) K/uL Immature Gran # (Auto) (0.01-0.20) K/uL Sodium (136-145) mmol/L Potassium (3.5-5.1) mmol/L Chloride (98-107) mmol/L Carbon Dioxide (21-32) mmol/L Anion Gap (3-11) BUN (6-23) mg/dl Creatinine (0.6-1.2) mg/dl Est Cr Clr Drug Dosing ml/min Est GFR ( Amer) ml/min Est GFR (Non-Af Amer) ml/min BUN/Creatinine Ratio (10-20) Glucose (70-99(Fasting)) mg/dl POC Glucose 123 H 121 H (70-99) mg/dl Calcium (8.6-10.3) mg/dl Ionized Calcium (1.12-1.32) mmol/L Phosphorus (2.5-4.9) mg/dl Magnesium (1.7-2.4) mg/dl Stool Occult Bld Scrn (Negative) Lyme Disease IgG Ab (Negative) Lyme IgG (Western Blot) Pending Lyme IgG 18 kDa Band Pending Lyme IgG 23 kDa Band Pending Lyme IgG 28 kDa Band Pending Lyme IgG 30 kDa Band Pending Lyme IgG 39 kDa Band Pending Lyme IgG 41 kDa Band Pending Lyme IgG 45 kDa Band Pending Lyme IgG 58 kDa Band Pending Lyme IgG 66 kDa Band Pending Lyme IgG 93 kDa Band Pending Lyme IgM Ab (WB) Pending Lyme Disease IgM Ab (Negative) Lyme IgM 23 kDa Band Pending Lyme IgM 39 kDa Band Pending Lyme IgM 41 kDa Band Pending 11/10/22 11/10/22 11/10/22 Range/Units 08:06 04:24 04:24 WBC (4.8-10.8) K/ul RBC (4.20-5.40) M/uL Hgb (12.0-16.0) g/dl Hct (37.0-47.0) % MCV (80.0-100.0) fL MCH (25.0-34.0) pg MCHC (32.0-36.0) g/dL RDW Std Deviation (36.4-46.3) fL RDW Coeff of [place] (11.5-14.5) % Plt Count (130-400) K/uL MPV (9.4-12.4) fL Immature Gran % (Auto) % Neut % (Auto) % Lymph % (Auto) % [place] % (Auto) % Eos % (Auto) % Baso % (Auto) % Neut # (Auto) (1.40-6.50) K/uL Lymph # (Auto) (1.20-3.40) K/uL [place] # (Auto) (0.11-0.59) K/uL Eos # (Auto) (0.00-0.50) K/uL Baso # (Auto) (0.00-0.20) K/uL Immature Gran # (Auto) (0.01-0.20) K/uL Sodium 131 L (136-145) mmol/L Potassium 3.5 (3.5-5.1) mmol/L Chloride 103 (98-107) mmol/L Carbon Dioxide 23 (21-32) mmol/L Anion Gap 5 (3-11) BUN 24 H (6-23) mg/dl Creatinine 1.37 H (0.6-1.2) mg/dl Est Cr Clr Drug Dosing 41.2 ml/min Est GFR ( Amer) 46.1 ml/min Est GFR (Non-Af Amer) 39.8 ml/min BUN/Creatinine Ratio 17.5 (10-20) Glucose 120 H (70-99(Fasting)) mg/dl POC Glucose (70-99) mg/dl Calcium 6.1 L (8.6-10.3) mg/dl Ionized Calcium 0.87 L (1.12-1.32) mmol/L Phosphorus 2.8 (2.5-4.9) mg/dl Magnesium 2.4 (1.7-2.4) mg/dl Stool Occult Bld Scrn (Negative) Lyme Disease IgG Ab Negative (Negative) Lyme IgG (Western Blot) Lyme IgG 18 kDa Band Lyme IgG 23 kDa Band Lyme IgG 28 kDa Band Lyme IgG 30 kDa Band Lyme IgG 39 kDa Band Lyme IgG 41 kDa Band Lyme IgG 45 kDa Band Lyme IgG 58 kDa Band Lyme IgG 66 kDa Band Lyme IgG 93 kDa Band Lyme IgM Ab (WB) Lyme Disease IgM Ab Equivocal A (Negative) Lyme IgM 23 kDa Band Lyme IgM 39 kDa Band Lyme IgM 41 kDa Band 11/10/22 11/09/22 11/09/22 Range/Units 04:24 Unknown 20:20 WBC 4.11 L (4.8-10.8) K/ul RBC 2.89 L (4.20-5.40) M/uL Hgb 9.7 L (12.0-16.0) g/dl Hct 28.1 L (37.0-47.0) % MCV 97.2 (80.0-100.0) fL MCH 33.6 (25.0-34.0) pg MCHC 34.5 (32.0-36.0) g/dL RDW Std Deviation 63.4 H (36.4-46.3) fL RDW Coeff of [place] 18.3 H (11.5-14.5) % Plt Count 262 (130-400) K/uL MPV 9.2 L (9.4-12.4) fL Immature Gran % (Auto) 1.0 % Neut % (Auto) 62.1 % Lymph % (Auto) 22.1 % [place] % (Auto) 5.1 % Eos % (Auto) 9.5 % Baso % (Auto) 0.2 % Neut # (Auto) 2.55 (1.40-6.50) K/uL Lymph # (Auto) 0.91 L (1.20-3.40) K/uL [place] # (Auto) 0.21 (0.11-0.59) K/uL Eos # (Auto) 0.39 (0.00-0.50) K/uL Baso # (Auto) 0.01 (0.00-0.20) K/uL Immature Gran # (Auto) 0.04 (0.01-0.20) K/uL Sodium (136-145) mmol/L Potassium (3.5-5.1) mmol/L Chloride (98-107) mmol/L Carbon Dioxide (21-32) mmol/L Anion Gap (3-11) BUN (6-23) mg/dl Creatinine (0.6-1.2) mg/dl Est Cr Clr Drug Dosing ml/min Est GFR ( Amer) ml/min Est GFR (Non-Af Amer) ml/min BUN/Creatinine Ratio (10-20) Glucose (70-99(Fasting)) mg/dl POC Glucose 148 H (70-99) mg/dl Calcium (8.6-10.3) mg/dl Ionized Calcium (1.12-1.32) mmol/L Phosphorus (2.5-4.9) mg/dl Magnesium (1.7-2.4) mg/dl Stool Occult Bld Scrn Negative (Negative) Lyme Disease IgG Ab (Negative) Lyme IgG (Western Blot) Lyme IgG 18 kDa Band Lyme IgG 23 kDa Band Lyme IgG 28 kDa Band Lyme IgG 30 kDa Band Lyme IgG 39 kDa Band Lyme IgG 41 kDa Band Lyme IgG 45 kDa Band Lyme IgG 58 kDa Band Lyme IgG 66 kDa Band Lyme IgG 93 kDa Band Lyme IgM Ab (WB) Lyme Disease IgM Ab (Negative) Lyme IgM 23 kDa Band Lyme IgM 39 kDa Band Lyme IgM 41 kDa Band 11/09/22 Range/Units 17:18 WBC (4.8-10.8) K/ul RBC (4.20-5.40) M/uL Hgb (12.0-16.0) g/dl Hct (37.0-47.0) % MCV (80.0-100.0) fL MCH (25.0-34.0) pg MCHC (32.0-36.0) g/dL RDW Std Deviation (36.4-46.3) fL RDW Coeff of [place] (11.5-14.5) % Plt Count (130-400) K/uL MPV (9.4-12.4) fL Immature Gran % (Auto) % Neut % (Auto) % Lymph % (Auto) % [place] % (Auto) % Eos % (Auto) % Baso % (Auto) % Neut # (Auto) (1.40-6.50) K/uL Lymph # (Auto) (1.20-3.40) K/uL [place] # (Auto) (0.11-0.59) K/uL Eos # (Auto) (0.00-0.50) K/uL Baso # (Auto) (0.00-0.20) K/uL Immature Gran # (Auto) (0.01-0.20) K/uL Sodium (136-145) mmol/L Potassium (3.5-5.1) mmol/L Chloride (98-107) mmol/L Carbon Dioxide (21-32) mmol/L Anion Gap (3-11) BUN (6-23) mg/dl Creatinine (0.6-1.2) mg/dl Est Cr Clr Drug Dosing ml/min Est GFR ( Amer) ml/min Est GFR (Non-Af Amer) ml/min BUN/Creatinine Ratio (10-20) Glucose (70-99(Fasting)) mg/dl POC Glucose 168 H (70-99) mg/dl Calcium (8.6-10.3) mg/dl Ionized Calcium (1.12-1.32) mmol/L Phosphorus (2.5-4.9) mg/dl Magnesium (1.7-2.4) mg/dl Stool Occult Bld Scrn (Negative) Lyme Disease IgG Ab (Negative) Lyme IgG (Western Blot) Lyme IgG 18 kDa Band Lyme IgG 23 kDa Band Lyme IgG 28 kDa Band Lyme IgG 30 kDa Band Lyme IgG 39 kDa Band Lyme IgG 41 kDa Band Lyme IgG 45 kDa Band Lyme IgG 58 kDa Band Lyme IgG 66 kDa Band Lyme IgG 93 kDa Band Lyme IgM Ab (WB) Lyme Disease IgM Ab (Negative) Lyme IgM 23 kDa Band Lyme IgM 39 kDa Band Lyme IgM 41 kDa Band Diagnostic Findings Chest X-Ray 11/09/22 10:55 XR chest 1V portable CLINICAL HISTORY: hypoxia TECHNIQUE: Single frontal radiograph of the chest was obtained. Comparison: Comparison is made to chest radiograph 11/08/2022 FINDINGS: No lines and tubes are seen. Calcified aortic knob is seen. Reticular interstitial opacities are seen. No evidence of pleural effusion or pneumothorax. IMPRESSION: Interstitial opacities without evidence of airspace disease. ACT 112: Negative or not required by law. Electronically signed by: Tucker Johnson M.D. 11/09/2022 11:32 AM Femur X-Ray 11/09/22 17:43 SINGLE VIEW PELVIS; 2 VIEWS RIGHT FEMUR CLINICAL HISTORY: Fall. Right leg pain. FINDINGS: AP view of the pelvis with AP and crosstable lateral views of the right femur are obtained. Comparison is made to pelvic radiographs dated 06/21/2022. The skeletal structures are osteopenic. There is no radiographic evidence of acute fracture involving the hips or bony pelvis. There is no radiographic evidence of right femoral fracture. A left hip arthroplasty is in near-anatomic alignment. No periprosthetic lucency is seen. Moderate os teoarthritic change and joint space narrowing is seen in the right hip. Degenerative sclerosis is noted in the sacroiliac joints. The right knee joint is grossly maintained noting arthritic change. The overlying soft tissues are within normal limits. There is atherosclerotic calcification of the right femoral and popliteal arteries. IMPRESSION: 1. No acute bony abnormality is seen involving the hips or pelvis. 2. There is no radiographic evidence of right femoral fracture. 3. A left hip arthroplasty is in near anatomic alignment. Electronically signed by: Curtis Soriano M.D. 11/09/2022 10:29 PM Pelvis X-Ray 11/09/22 17:43 SINGLE VIEW PELVIS; 2 VIEWS RIGHT FEMUR CLINICAL HISTORY: Fall. Right leg pain. FINDINGS: AP view of the pelvis with AP and crosstable lateral views of the right femur are obtained. Comparison is made to pelvic radiographs dated 06/21/2022. The skeletal structures are osteopenic. There is no radiographic evidence of acute fracture involving the hips or bony pelvis. There is no radiographic evidence of right femoral fracture. A left hip arthroplasty is in near-anatomic alignment. No periprosthetic lucency is seen. Moderate osteoarthritic change and joint space narrowing is seen in the right hip. Degenerative sclerosis is noted in the sacroiliac joints. The right knee joint is grossly maintained noting arthritic change. The overlying soft tissues are within normal limits. There is atherosclerotic calcification of the right femoral and popliteal arteries. IMPRESSION: 1. No acute bony abnormality is seen involving the hips or pelvis. 2. There is no radiographic evidence of right femoral fracture. 3. A left hip arthroplasty is in near anatomic alignment. Electronically signed by: Curtis Soriano M.D. 11/09/2022 10:29 PM PG Care Time/CCT Total # of Minutes Spent Total Time Spent with Patient: Total time spent is greater than 50% in coordination of care (as documented) at patient's floor/unit and/or counseling patient: Coding Level of Care Code 68435 SUB INP/OBS CARE 3/50MIN Diagnoses Weakness R53.1 Urinary tract infection N39.0 Hematuria presence: without hematuria Urinary tract infection type: site unspecified Fall W19.XXXA Acute conjunctivitis of both eyes H10.33 Acute kidney injury N17.9 Hypomagnesemia E83.42 Hyponatremia E87.1 Diastolic CHF I50.30 Malignant neoplasm of breast metastatic to bone C50.919; C79.51 Peeling skin R23.4 Vitamin D deficiency E55.9 Impaired mobility and ADLs Z74.09; Z78.9 Intertrigo L30.4 Metabolic acidosis with normal anion gap and bicarbonate losses E87.20 (2) Urinary tract infection Hematuria presence: without hematuria Urinary tract infection type: site unspecified Qualified Code(s): N39.0 - Urinary tract infection, site not specified
[2022-11-10] MEDS ORDERED: CALCITRIOL 0.25 MCG CAPSULE PO SCH (09:00)
[2022-11-10] MEDS: PARoxetine HCL 20 MG TAB PO SCH (09:20)
[2022-11-10] MEDS: MAGNESIUM OXIDE 400 MG TAB PO SCH (09:20)
[2022-11-10] MEDS: CALCIUM 600MG + VIT D 400 IU TAB PO SCH (09:20)
[2022-11-10] MEDS: carvediloL 3.125 MG TAB PO SCH ×2 (09:20→21:18)
[2022-11-10] MEDS: MICONAZOLE NITRATE POWDER 85 GM EXT SCH ×2 (09:20→21:21)
[2022-11-10] MEDS: APIXABAN 5 MG TABLET PO SCH ×2 (09:20→21:18)
[2022-11-10] MEDS: GABAPENTIN 300 MG CAP PO SCH ×3 (09:20→21:17)
[2022-11-10] MEDS: MAGNESIUM CHLORIDE W/CALCIUM 64MG DELAYED REL TAB PO SCH ×2 (09:20→21:17)
[2022-11-10] MEDS: PANTOprazole 40 MG TAB PO SCH (09:20)
[2022-11-10 09:21] LABS: Lyme Ab IgG w/WB Rflx Negative (Negative)
[2022-11-10] MEDS: TRIMETHOPRIM/POLYMYXIN B OP SCH ×5 (09:21→21:21)
[2022-11-10] MEDS ORDERED: ALBUT/IPRATROP 3MG/0.5MG NEB 3 ML VIAL NEB PRN (10:28)
--- NOTE | 2022-11-10 10:32 | XRay Report ---
SINGLE VIEW CHEST CLINICAL HISTORY: Hypoxia. FINDINGS: An AP, portable, upright chest radiograph is compared to study dated 11/09/2022 and correlat ed with chest CT dated 11/09/2021. The heart is enlarged noting atherosclerotic calcification of the t horacic aorta. The pulmonary vasculature is noncongested. Emphysema and chronic interstitial thickeni ng is similar to previous. Foci of parenchymal scarring are seen throughout both lungs. No airspace c onsolidation or large pleural effusion is identified. No pneumothorax is seen. The skeletal structure s are osteopenic number findings of multifocal osteoblastic metastatic disease were better assessed o n prior CT scans. There are chronic/healed left-sided rib fractures. Surgical clips are noted in the left axilla. IMPRESSION: Cardiomegaly and emphysema with no acute cardiopulmonary abnormality identified. ACT 112: Negative or not required by law. Electronically signed by: Curtis Soriano M.D. 11/10/2022 10:30 AM
[2022-11-10] MEDS ORDERED: LOPERAMIDE HCL 2 MG CAP PO STA (10:34)
[2022-11-10 10:39] LABS: Lyme Ab IgM w/WB Rflx Equivocal (Negative)
[2022-11-10] MEDS ORDERED: POTASSIUM CHLORIDE CRTAB 20 MEQ TABCR PO STA (10:41)
[2022-11-10] MEDS ORDERED: FUROSEMIDE INJ 20 MG/2 ML VIAL IV ONE (10:41)
--- NOTE | 2022-11-10 12:32 | Nephrology Progress Note ---
Date of Service November 10, 2022 Assessment & Plan (1) Acute kidney injury: (2) Hypomagnesemia: (3) Hypocalcemia: (4) Hypotension: (5) Hyponatremia: (6) Metabolic acidosis with normal anion gap and bicarbonate losses: Plan 66 y o F with h/o metastatic breast ca to bone, h/o ostomy and multiple electrolyte abnormalities, admitted with generalized weakness and electrolyte abnormalities. Overall clinically improving, electrolytes improved. BP has been low, clinically no sign of volume overload. --increase calcitriol to 1mcg daily. --continue Amiloride, mag supplement. --monitor labs in am Admission and Anticipated Discharge Date Admission Date: November 08, 2022 Roe Montesinos was seen and evaluated this morning. Overall she feels about the same, feels less fatigue, has been trying to participate in physical therapy. Denies shortness of breath. Continues to have high ostomy output without any significant change from her baseline. Blood pressure relatively low. Renal function relatively stable, electrolyte abnormality improved. Review of Systems Review of Systems: Detail review of system was done and pertinent positives and negatives are mentioned above. Physical Exam Constitutional: WD/WN, vitals as above + ill appearing; no acute distress Eyes: + anicteric sclerae Neck: normal visual inspection Respiratory: no respiratory distress and no cough Auscultation: lungs clear to auscultation bilaterally Cardiovascular: RRR, no murmur, no edema Neurologic: no focal motor deficits Psychiatric: Orientation: alert and oriented x 3 Affect: euthymic affect Results & Data Vital Signs (Past 12 Hours) Vital Signs Temp Pulse Pulse Resp BP Pulse Ox O2 Del Method 11/10/22 10:58 36.5 C 82 12 97/63 L 94 Nasal Cannula 11/10/22 09:36 12 91 Nasal Cannula 11/10/22 07:00 80 11/10/22 06:55 36.8 C 79 20 92/60 L 97 Nasal Cannula 11/10/22 03:52 36.6 C 95 H 16 89/57 L 96 Nasal Cannula O2 Flow Rate 11/10/22 10:58 2 11/10/22 09:36 3 11/10/22 07:00 11/10/22 06:55 2 11/10/22 03:52 2 PG Care Time/CCT Total # of Minutes Spent Total Time Spent with Patient: Total time spent is greater than 50% in coordination of care (as documented) at patient's floor/unit and/or counseling patient: Coding Level of Care Code 09096 SUB INP/OBS CARE 235MIN Diagnoses Acute kidney injury N17.9 Hypomagnesemia E83.42 Hypocalcemia E83.51 Hypotension I95.9 Hyponatremia E87.1 Metabolic acidosis with normal anion gap and bicarbonate losses E87.20
[2022-11-10] MEDS: CIPROFLOXACIN 500 MG TAB PO SCH ×2 (13:45→21:19)
[2022-11-10] MEDS ORDERED: LOPERAMIDE HCL 2 MG CAP PO SCH (14:00)
--- NOTE | 2022-11-10 16:50 | CT Scan Report ---
CT abd pelvis wo con CLINICAL HISTORY: fall, high output ostomy, acidosis TECHNIQUE: Helical axial images of the abdomen and pelvis were obtained. Automated dose lowering tech niques and/or adjustment according to patient size were utilized for this exam. This exam was perfor med without intravenous contrast. CT DOSE: 1133.76 mGy.cm COMPARISON: Comparison is made to CT abdomen pelvis 11/09/2021 FINDINGS: Lower chest: Bibasilar atelectasis versus scarring is seen. Bronchial wall thickening is seen. Liver: Hepatic steatosis is noted. Gallbladder and biliary tree: Cholelithiasis is seen without evidence of cholecystitis. No intra- or extrahepatic biliary ductal dilation. Pancreas: Fatty replacement of the pancreas is seen. Spleen: Unremarkable. Adrenals: Unremarkable. Kidneys and ureters: Unremarkable. Bladder: Limited evaluation due to underdistention. Reproductive organs: Unremarkable. Bowel: Small hiatal hernia. Postsurgical changes of descending colostomy with parastomal hernia. The appendix is unremarkable. Lymph nodes Retroperitoneal: Unremarkable. Pelvic: Unremarkable. Mesenteric: Unremarkable. Peritoneum: Normal. Vessels: Atherosclerotic calcifications are seen. Abdominal wall: Redemonstration of multiple abdominal wall hernias containing fat and loops of bowel. No evidence of bowel obstruction. Bones: Left hip total arthroplasty is seen. There are innumerable lytic and sclerotic lesions in the visualized skeleton compatible with bony metastatic disease, similar to prior exam. IMPRESSION: 1. No acute abnormality, in particular no acute fracture in this patient with recent fall.. 2. Redemonstration of colostomy and multiple hernias containing loops of bowel. 3. Stable skeletal metastatic disease. 4. Hepatic steatosis. ACT 112: Negative or not required by law. Electronically signed by: Tucker Johnson M.D. 11/10/2022 4:49 PM
--- NOTE | 2022-11-10 17:59 | XCELERA ---
[id number] \\[id number]
[2022-11-10] MEDS: LOPERAMIDE HCL 2 MG CAP PO SCH (21:17)
[2022-11-10] MEDS: ATORVASTATIN 10 MG TAB PO SCH (21:19)
--- NOTE | 2022-11-10 21:38 | Surgery Consultation ---
Date of Consultation November 10, 2022 Assessment & Plan (1) Parastomal hernia: The patient has been admitted on the hospitalist service secondary to generalized weakness and electrolyte abnormalities. Management these conditions to be deferred to the primary service. Concerning patient's parastomal hernia there is not appear to be any evidence of obstruction from this problem and therefore no surgical invention is required. Concerning the patient's high ostomy output it does appear as though the patient's output has slowed slightly since she has been initiated Imodium as she has had some semiformed stool noted in the collection bag. 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 The patient notes that she did not injure herself secondary to the fall. Patient notes that she has a history of metastatic breast cancer and she is receiving chemotherapy under the direction of Dr. Montoya. The patient is noted that for several weeks she has had high ostomy output that she feels may be related to her chemotherapy may also be contributing to her weakness. General surgery has been asked to see the patient secondary to her high ostomy output as well as her parastomal hernia. The patient specifically denies any abdominal pain. She denies any nausea or vomiting. She does note that she had her colostomy formed in February 2017 secondary to a diverticular micro per. She notes that the surgery was performed by colorectal surgeon at [facility]. Patient notes that following this procedure she did have numerous complications and because of this she has never had her colostomy reversed. She does note that she was placed on Imodium since arrival to the hospital and she feels as though her ostomy output may have slightly decreased. Since her hospitalization the patient has had multiple labs and imaging which independent reviewed. Chest x-ray on 11/08/2022 did not show any evidence of pneumonia. She had a humerus x-ray on the same date that did not show any evidence of fracture. Chest x-ray was repeated on 11/09/2022 that did shows some interstitial opacities but no airspace disease was noted. Femur x-rays performed on 11/09/2022 that showed no acute fractures. A pelvic x-ray was performed on 11/09/2022 that showed no fractures. A third chest x-ray was repeated on 11/10/2022 that did not show any evidence of pneumonia. A CT scan of the abdomen and pelvis was performed on 11/10/2022 that showed a colostomy with parastomal hernia. Most recent labs included CBC from today which showed white blood cell count is 4.1. Her hemoglobin and hematocrit were 9.7 and 28.1. Platelet count is noted to be normal. Chemistry profile from today shows sodium is 131 with a normal potassium. Her BUN and creatinine were 24 and 1.3. (Her creatinine was noted to be 1.68 at time of admission). Magnesium today is noted to be normal. At the time of interview the patient is resting comfortably in bed and she was no distress. Allergies Allergy/AdvReac Type Severity Reaction Status Date / Time aspirin Allergy Mild hives Verified 11/08/22 20:27 ibuprofen Allergy Mild hives Verified 11/08/22 20:27 tamoxifen Allergy Unknown temporary Verified 11/08/22 20:27 left eye vision loss Home Medications Medication Instructions Recorded Confirmed Type acetaminophen 500 mg tablet 500 mg PO Q6H PRN Pain 04/13/20 11/08/22 History (Tylenol Extra Strength) paroxetine HCl 30 mg tablet (Paxil) 30 mg PO QAM #90 tabs 09/30/21 11/08/22 Rx furosemide 40 mg tablet 40 mg PO QAM #90 tabs 10/11/21 11/08/22 Rx fulvestrant 250 mg/5 mL 500 mg (10 mL) IM ONCE 3 doses #10 03/14/22 11/08/22 Rx intramuscular syringe mL apixaban 5 mg tablet (Eliquis) 5 mg PO BID DVT #180 tabs 05/01/22 11/08/22 Rx Wheelchair (Manual) #1 ea 07/14/22 11/08/22 Rx losartan 25 mg tablet 12.5 mg PO QPM #15 tabs 07/21/22 11/08/22 Rx metformin 1,000 mg tablet 1,000 mg PO BID #180 tabs 07/24/22 11/08/22 Rx carvedilol 3.125 mg tablet 3.125 mg PO BID #180 tabs 08/18/22 11/08/22 Rx gabapentin 300 mg capsule 300 mg PO .COMPLEX #360 caps 09/04/22 11/08/22 Rx magnesium oxide 400 mg (241.3 mg 800 mg PO BID #90 tabs 10/16/22 11/08/22 Rx magnesium) tablet atorvastatin 10 mg tablet 10 mg PO QPM #90 tabs 10/23/22 11/08/22 Rx ergocalciferol (vitamin D2) 1,250 1,250 mcg PO .COMPLEX #8 caps 10/25/22 11/08/22 Rx mcg (50,000 unit) capsule omeprazole 20 mg capsule,delayed 20 mg PO QAM #90 caps 10/30/22 11/08/22 Rx release potassium chloride 20 mEq 20 meq PO QAM #90 tabs 10/30/22 11/08/22 Rx tablet,extended release amiloride 5 mg tablet 5 mg PO QAM 11/08/22 11/08/22 History calcium carbonate 600 mg-vitamin 1 tab PO DAILY 11/08/22 11/08/22 History D3 10 mcg (400 unit) tablet (Calcium 600 + D(3)) magnesium chloride 64 mg 64 mg PO BID 11/08/22 11/08/22 History (magnesium chloride) tablet,delayed release Patient History Medical History (HFpEF) heart failure with preserved ejection fraction Abnormal CT scan recent CT @ [place] w/ evidence 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 Barkley Chronic systolic CHF (congestive heart failure), NYHA class [address] 2017 (after diverticular perforation complications) Depression Diabetes Difficult intravenous access difficult IV access Left arm Discharge of eye, right Diverticular disease DM type 2 (diabetes mellitus, type 2) NIDDM Encounter for pre-operative examination Hyperlipidemia Left leg DVT started on eliquis. repeat doppler in 07/2021. Lumbar disc herniation with radiculopathy LV dysfunction Metastatic breast cancer hx chemo, radiation + surgery Morbid obesity PAC (premature atrial contraction) h/o PVC (premature ventricular contraction) h/o Surgical History H/O bilateral mastectomy denies limb restriction History of cardiac cath 2017 - [place] - cardiomyopathy - no stents/angioplasty History of humerus fracture (03/26/20) with open reduction and internal fixation due to pathological fracture (Dr. Gillette) History of hysterectomy History of intestinal surgery History of lumbar laminectomy History of surgery for malignant neoplasm 2017 removal of substernal mass + radiation Family History Mother Breast cancer Sister Breast cancer Father Myocardial infarction Prostate cancer Other Cancer Heart disease Hypertension Denies family history of Ovarian cancer Colorectal cancer Social History Smoking Status: Current every day smoker Tobacco Type: Cigarettes Age Started Using Tobacco: 15; Cigarettes Per Day: 3/4 pack per day; Second Hand Exposure: No; Do You Dip or Chew Tobacco: No; Tobacco Cessation Education Requested by Patient: No Hx Alcohol Use: No Hx Substance Use: No Preferred Language: Ukrainian Communication Ability: Effective Visual Impairment: No Limitations Continuing Education Dean Required: No Beliefs That Will Affect Care: None marital status: Single Current Living Situation: Alone Current Living Situation Comment: with caregivers current occupational status: retired How many Children do You have: 0 Other Information That Helps Us Care for You: No Feels Safe at Home: Yes Safety Concerns: Feels Safe At This Time Childhood Exposure to Second-Hand Smoke: No Diet: regular caffeine: Yes Dental Care, Regularly: Yes Physical Activity Frequency: Does not Exercise Seatbelt Use: never Sunscreen Use: Yes Assistive Devices: Cane and Walker Review of Systems Constitutional: no fever Ear, Nose, Mouth, Throat: no hearing loss Respiratory: no cough Cardiovascular: no chest pain Gastrointestinal: as per Subjective / HPI Genitourinary: no dysuria Musculoskeletal: no back pain Integumentary: no rash Neurologic: + generalized weakness Physical Exam Constitutional: no acute distress Eyes: no conjunctival abnormality ENMT: Ears: no hearing impairment Neck: trachea midline Respiratory: no labored breathing Cardiovascular: Rate/Rhythm: regular rate and regular rhythm Gastrointestinal (Abdomen): Abdomen is soft and nondistended. The patient was noted to have a colostomy on the left side of her abdomen. The ostomy appeared pink and viable. There is some liquid as well as semiformed stool noted in the collection bag. There is no pain with palpation. Musculoskeletal: No calf tenderness Skin: no rashes Neurologic: moves all extremities Psychiatric: A+Ox3, euthymic affect Results & Data Vital Signs (Past 12 Hours) Vital Signs Temp Pulse Pulse Resp BP Pulse Ox O2 Del Method 11/10/22 19:12 37 C 92 H 16 85/57 L 98 Nasal Cannula 11/10/22 15:00 78 11/10/22 15:32 36.6 C 71 20 92/62 L 98 Nasal Cannula 11/10/22 10:58 36.5 C 82 12 97/63 L 94 Nasal Cannula 11/10/22 09:36 12 91 Nasal Cannula O2 Flow Rate 11/10/22 19:12 2 11/10/22 15:00 11/10/22 15:32 2 11/10/22 10:58 2 11/10/22 09:36 3 PG Care Time/CCT Total # of Minutes Spent Total Time Spent with Patient: Total time spent is greater than 50% in coordination of care (as documented) at patient's floor/unit and/or counseling patient: Coding Level of Care Code 15226 INT INP/OBS CARE 3/75MIN Diagnoses Parastomal hernia K43.5
[2022-11-11 06:04] LABS: Hematocrit (blood only) 29.2 % (37.0-47.0); Hemoglobin 9.8 g/dl (12.0-16.0); Mean Corpuscular Hemoglobin 32.9 pg (25.0-34.0); Mean Corpuscular Hgb Conc 33.6 g/dL (32.0-36.0); RDW Coefficient of Variation 18.6 % (11.5-14.5); RDW Standard Deviation 64.9 fL (36.4-46.3); Red Blood Count 2.98 M/uL (4.20-5.40); White Blood Count 5.06 K/ul (4.8-10.8)
[2022-11-11 06:05] LABS: Basophils # (auto) 0.02 K/uL (0.00-0.20); Basophils % (auto) 0.4 %; Eosinophils # (auto) 0.59 K/uL (0.00-0.50); Eosinophils % (auto) 11.7 %; Immature Granulocytes # (auto) 0.06 K/uL (0.01-0.20); Immature Granulocytes % (auto) 1.2 %; Lymphocytes # (auto) 0.69 K/uL (1.20-3.40); Lymphocytes % (auto) 13.6 %; Mean Platelet Volume 9.2 fL (9.4-12.4); Monocytes % (auto) 5.9 %; Neutrophils % (auto) 67.2 %; Platelet Count 293 K/uL (130-400)
[2022-11-11 06:22] LABS: Albumin Level 2.4 gm/dl (3.4-5.0); BUN Creatinine Ratio 16.5 (10-20); Bilirubin,Total 0.5 mg/dl (0.2-1.0); Creatinine Clr Calc Pharmacy 44.4 ml/min; Est GFR (African American) 50.6 ml/min; Est GFR (Non-African American) 43.6 ml/min; Globulin 2.5 gm/dl (2.5-4.0); Magnesium 2.3 mg/dl (1.7-2.4); Phosphorus 2.4 mg/dl (2.5-4.9); Potassium 3.6 mmol/L (3.5-5.1); Total Protein 4.9 gm/dl (6.0-8.3)
--- NOTE | 2022-11-11 07:45 | Hospitalist Progress Note ---
Date of Service November 11, 2022 Assessment & Plan (1) Metabolic acidosis with normal anion gap and bicarbonate losses: Plan: presented with significant electrolyte abnormalities w/ nonanion gap metabolic acidosis 2nd to high output ileostomy/diuretic use following a fall at home/reported weakness CT head without acute CVA * Fall suspected multifactorial in patient with metastatic breast cancer progressed on Faslodex/Ibrance as well as anastrazole, most recently on Xeloda with worsening neuropathy and peeling of hands/feet, hypomagnesemia/electrolyte derangements (suspected RTA type [address] Yepez's recent note, placed on amiloride), dehydration, OZIEL on presentation. STOPPING her Xeloda as discussed with Dr Montoya prior to admission -- need f/u outpatient Bicarb 15 on presentation with BUN/Cr 31/1.68, Na 129, Mag 1.3, Ca 6.5, ionized ca 0.89. suspected 2nd to diuretic use as well as high output ostomy, renal tubular acidosis suspect in most recent nephrology follow up * Given NaHCO3 IV on admission, electrolyte replacement * Acidosis resolved on repeat labs, bicarb IV stopped Mag IV replacement for mag 1.3 on admission, wnl x past two days with DISCONTINUATION of mag oxide 800mg BID and increasing her mag chloride (slow mag) to BID. ?2nd to PPI use/metformin, poor absorption. -High output ostomy/proximal RTA contributing -Stool testing for PCR/cdiff/fecal occult NEGATIVE Nephrology on consult, appreciate assistance/continued recommendations Discussed I had ordered amiloride 5mg daily on admission to be continued but had not received (got lasix 20mg IV x 1 past two days), confirmed with pharmacy was cancelled AM [address] Gaffney, resumed for today Started imodium 2mg QID, some decreased ostomy output overnight but slightly increased today changed imodium to 4mg TID and adding daily metamucil to help decrease ostomy output Tx FERNANDO/equivocal Lyme as below Labs much improved today, will continue to monitor/replace electrolytes as needed (2) High output ileostomy: Plan: as above, attempting to get to slow. mag replacement switched, imodium increased (3) Weakness: Plan: Multifactorial, setting of metastatic breast cancer, skeletal disease, neuropathy from her Xeloda/peeling of hands/feel, metabolic acodosis w/ electrolyte disturbances (hypomag, hypoNa, hypocalcemia), UTI, possible Lyme. Also CANNOT exclude lumbar stenosis as contributing (MRI earlier this year w/ heme/onc noting several disc bulges, likely no surgical correction given blastic/lytic lesions, unable to provide orthotics given ostomy placement) Tx high output ostomy/metabolic acidosis as above, improving Tx UTI, pseudomonas on cx - initially on rocephin for GNB, but switched to Cipro given not cover for pseudomonas. Planning 500mg BID x 3 days Equivocal Lyme, continue Rocephin for now but increased to 2gm IV daily. F/u WB testing Neuropathy- Gabapentin renally dosed to 300mg TID (was on QID) -- rec to reduce to TID at dc given CrCl 30s. B12 not deficient (had been getting replacement) - STOPPING Xeloda Of note, patient had unreported fall to ground in ER prior to coming up to the floor on AM 11/09 which was not reported. Contacted nursing/charge, ER to do event report. No head trauma to warrant CT at present however did obtain imaging of right femur/hip, no acute fracture thankfully ECHO w/ RVSP elevated to 40-50mmHg. ?underlying BLAKE. Normal EF. Grade 1 diastolic dysfunction. mild MR, mod TR Consideration for underlying BLAKE, diastolic HF. IF able to wean off O2, consider overnight pulse ox study (if going home vs continued at rehab) Continue PT/OT, ref to [facility] made yesterday per Radha from CM (4) Urinary tract infection: Plan: as above, pseudomonas on urine cx, cipro for treatment. planning 3 days given "asymptomatic", blood cultures NGTD (5) Acute kidney injury: Plan: Dehydrated on admission, BUN/Cr 31/1.68. PRerenal, increased ostomy output IVF provided, lasix 20mg IV on 11/09 & 11/10 for overload (Dr gaffney had stopped her amiloride as ordered on admission) Cr stable at 1.27 from 1.37 yesterday No further lasix, amiloride resumed by Dr Yepez, appreciate assistance Renally dosing meds as able (gabapentin reduced to 300mg TID), avoid ne phrotoxins as able Nephrology consulted while inpatient BMP in AM (6) Hypomagnesemia: Plan: as above, 2nd to high output ileostomy/metformin use suspected, as well as PPI use, poor absorption. 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 TSH wnl Lasix as outlined, amiloride resumed for today as above Na improved 133 on labs and will monitor of note, current smoker as well in setting of malignancy Monitor BMP in AM (9) Diastolic CHF: Plan: follows with Dr Barkley -- appeared DRY on exam on admission, recently started amiloride as well per nephrology and was on daily lasix 40mg Continue amiloride unless otherwise directed by nephrology (had been dc on 11/09 as above, resumed for today) No further lasix, Will continue to hold losartan given soft BP/elevation in Cr CHANGED hold parameters for her COREG to hold only if SBP <90 given baseline in 90-100s, not having lightheaded/dizziness at present in bed and has been getting. HRs much better controlled today ECHO w/ LV systolic function normal. Grade I diastolic dysfunction. RV mildly dilated. RVSP is normal. Mild MR, moderate TR. RVSP elevated to 40-50mmhg ?underlying sleep apnea. Denied snoring/apneic periods but not ruled out would rec formal sleep study amiloride resumed as above, aiming for negative to slightly even fluid balanace. Does not seem overly dehydrated on exam Monitor daily weights, I&Os (10) Malignant neoplasm of breast metastatic to bone: Plan: discussed w/ heme/onc during inpatient encounter -- to STOP her xeloda, causing worsening neuropathy, peeling of hands/feet (improving since stopping this) can call Dr Montoya if needed, did see in ER planning to switch to Enhertu or fulvestrant/apelisib or elacestrant/apelisib in follow up will need f/u treatment options/sooner f/u at dc (11) Peeling skin: Plan: 2nd to Xeloda, last dose AM 10/4 wound RN consulted for above STOPPING Xeloda Improving (12) Vitamin D deficiency: Plan: recent increase as outpatient, calcitriol increase as above and continue ergocalciferol as instructed by nephrology (13) Intertrigo: Plan: significant fungal infection to groin folds, desenex ordered as above wound RN on consult SIGNIFICANTLY IMPROVING ON EXAM, utilizing purewick to keep dry encouraged limiting depends/changing more frequently at discharge to prevent issues Monitor (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 CT head negative. Tx as outlined above, continued PT/OT while inpatient (16) Acute conjunctivitis of both eyes: Plan: continue polymixin for now , improving on exam and will continue Plan continued inpatient stay, electrolyte replacement, attempting to slow ostomy output. improving. amiloride resumed continue tx pseudomonas UTI w/ PO cipro continue ceftriaxone until WB testing resulted Continue PT/OT while inpatient, called to see about eval for today to get her up/moving. CM sent for referral to [facility] on Sunday but will continue to see how she does (she would ideally like to go home but is aware if unable to meet requirements, rehab best initially short term) Nicotine patch ordered, still 1/2ppd smoker. Admission and Anticipated Discharge Date Admission Date: November 08, 2022 Subjective Eval this morning, diarrhea slowed reported, still liquid stool in ostomy but not having to change as frequently. groin folds looking improved. electrolytes more stable with medication changes yesterday discussed abx/urine cx, lyme testing, also concerns for contribution from lumbar disease/stenosis. she does endorse feeling thirsty, would like some cranberry juice. She does endorse some depression about need for rehab-- discussed will continue to see how she does, will call PT to eval for today. No shortness of breath. Discussed possible underlying sleep apnea and will attempt to perform overnight pulse ox if able. She is currently 1/2ppd smoker. Discussed nicotine patch. Questions/concerns addressed at this time. Physical Exam Physical Exam: General: chronically ill appearing female resting in bed, appears improved today, increased PO intake/decreased ostomy output HEENT: bilateral crusting of eyes improved, mm still slightly dry but improved, +dentures (top) Resp: diminished in the bases, no significant wheezing/rales, +bibasilar crackles, on 2L NC, no tahcypnea CV: regular rate/rhythm, +faint murmur, trace pedal edema bilaterally, calves nontender GI:+BS throughout, ostomy with copious brown/green output (decreased today), less surrounding erythema, nontender : purewick draining slightly concentrated darker urine intertrigo to groin bilaterally significantly improving, desenex in place MSK/Neuro/skin: no focal deficit, no slurred speech, follows commands, generalized weakness R elbow with slight redness from fall/no cellulitis or sanjay step off, ROM intact b/l knee with abrasion anteriorly, pulses palpable, ROM intact generalized weakness but equal bilaterally bilateral peeling of hands/feet, decreased purple discoloration --> continued improvement Psych: alert to person/place/time, events, cooperative with exam fatigued appearing (although does appear less fatigued) Results & Data Results & Data Vital Signs (Past 12 Hours) Vital Signs Temp Pulse Pulse Resp BP Pulse Ox O2 Del Method 11/11/22 06:35 82 11/11/22 04:04 37.8 C H 88 16 105/47 L 93 Nasal Cannula 11/10/22 23:19 36.9 C 78 16 89/60 L 96 Nasal Cannula O2 Flow Rate 11/11/22 06:35 11/11/22 04:04 2 11/10/22 23:19 2 Laboratory Results 11/11/22 11/11/22 11/11/22 Range/Units 04:47 04:47 04:47 WBC (4.8-10.8) K/ul RBC (4.20-5.40) M/uL Hgb (12.0-16.0) g/dl Hct (37.0-47.0) % MCV (80.0-100.0) fL MCH (25.0-34.0) pg MCHC (32.0-36.0) g/dL RDW Std Deviation (36.4-46.3) fL RDW Coeff of Bradford (11.5-14.5) % Plt Count (130-400) K/uL MPV (9.4-12.4) fL Immature Gran % (Auto) % Neut % (Auto) % Lymph % (Auto) % [place] % (Auto) % Eos % (Auto) % Baso % (Auto) % Neut # (Auto) (1.40-6.50) K/uL Lymph # (Auto) (1.20-3.40) K/uL [place] # (Auto) (0.11-0.59) K/uL Eos # (Auto) (0.00-0.50) K/uL Baso # (Auto) (0.00-0.20) K/uL Immature Gran # (Auto) (0.01-0.20) K/uL Sodium 133 L (136-145) mmol/L Potassium 3.6 (3.5-5.1) mmol/L Chloride 103 (98-107) mmol/L Carbon Dioxide 23 (21-32) mmol/L Anion Gap 7 (3-11) BUN 21 (6-23) mg/dl Creatinine 1.27 H (0.6-1.2) mg/dl Est Cr Clr Drug Dosing 44.4 ml/min Est GFR ( Amer) 50.6 ml/min Est GFR (Non-Af Amer) 43.6 ml/min BUN/Creatinine Ratio 16.5 (10-20) Glucose 124 H (70-99(Fasting)) mg/dl POC Glucose (70-99) mg/dl Calcium 6.0 L (8.6-10.3) mg/dl Phosphorus 2.4 L (2.5-4.9) mg/dl Magnesium 2.3 (1.7-2.4) mg/dl Total Bilirubin 0.5 (0.2-1.0) mg/dl AST 13 (13-39) U/L ALT 6 L (7-52) U/L Alkaline Phosphatase 48 (34-104) U/L Total Protein 4.9 L (6.0-8.3) gm/dl Albumin 2.4 L (3.4-5.0) gm/dl Globulin 2.5 (2.5-4.0) gm/dl Albumin/Globulin Ratio 1.0 (0.9-2) 25-OH Vitamin D Total 26.0 L (30-100) ng/ml PTH Intact 463.1 H (12.0-88.0) pg/ml Lyme Disease IgG Ab (Negative) Lyme IgG (Western Blot) Lyme IgG 18 kDa Band Lyme IgG 23 kDa Band Lyme IgG 28 kDa Band Lyme IgG 30 kDa Band Lyme IgG 39 kDa Band Lyme IgG 41 kDa Band Lyme IgG 45 kDa Band Lyme IgG 58 kDa Band Lyme IgG 66 kDa Band Lyme IgG 93 kDa Band Lyme IgM Ab (WB) Lyme Disease IgM Ab (Negative) Lyme IgM 23 kDa Band Lyme IgM 39 kDa Band Lyme IgM 41 kDa Band 11/11/22 11/10/22 11/10/22 Range/Units 04:47 20:17 16:39 WBC 5.06 (4.8-10.8) K/ul RBC 2.98 L (4.20-5.40) M/uL Hgb 9.8 L (12.0-16.0) g/dl Hct 29.2 L (37.0-47.0) % MCV 98.0 (80.0-100.0) fL MCH 32.9 (25.0-34.0) pg MCHC 33.6 (32.0-36.0) g/dL RDW Std Deviation 64.9 H (36.4-46.3) fL RDW Coeff of Bradford 18.6 H (11.5-14.5) % Plt Count 293 (130-400) K/uL MPV 9.2 L (9.4-12.4) fL Immature Gran % (Auto) 1.2 % Neut % (Auto) 67.2 % Lymph % (Auto) 13.6 % [place] % (Auto) 5.9 % Eos % (Auto) 11.7 % Baso % (Auto) 0.4 % Neut # (Auto) 3.40 (1.40-6.50) K/uL Lymph # (Auto) 0.69 L (1.20-3.40) K/uL [place] # (Auto) 0.30 (0.11-0.59) K/uL Eos # (Auto) 0.59 H (0.00-0.50) K/uL Baso # (Auto) 0.02 (0.00-0.20) K/uL Immature Gran # (Auto) 0.06 (0.01-0.20) K/uL Sodium (136-145) mmol/L Potassium (3.5-5.1) mmol/L Chloride (98-107) mmol/L Carbon Dioxide (21-32) mmol/L Anion Gap (3-11) BUN (6-23) mg/dl Creatinine (0.6-1.2) mg/dl Est Cr Clr Drug Dosing ml/min Est GFR ( Amer) ml/min Est GFR (Non-Af Amer) ml/min BUN/Creatinine Ratio (10-20) Glucose (70-99(Fasting)) mg/dl POC Glucose 136 H 131 H (70-99) mg/dl Calcium (8.6-10.3) mg/dl Phosphorus (2.5-4.9) mg/dl Magnesium (1.7-2.4) mg/dl Total Bilirubin (0.2-1.0) mg/dl AST (13-39) U/L ALT (7-52) U/L Alkaline Phosphatase (34-104) U/L Total Protein (6.0-8.3) gm/dl Albumin (3.4-5.0) gm/dl Globulin (2.5-4.0) gm/dl Albumin/Globulin Ratio (0.9-2) 25-OH Vitamin D Total (30-100) ng/ml PTH Intact (12.0-88.0) pg/ml Lyme Disease IgG Ab (Negative) Lyme IgG (Western Blot) Lyme IgG 18 kDa Band Lyme IgG 23 kDa Band Lyme IgG 28 kDa Band Lyme IgG 30 kDa Band Lyme IgG 39 kDa Band Lyme IgG 41 kDa Band Lyme IgG 45 kDa Band Lyme IgG 58 kDa Band Lyme IgG 66 kDa Band Lyme IgG 93 kDa Band Lyme IgM Ab (WB) Lyme Disease IgM Ab (Negative) Lyme IgM 23 kDa Band Lyme IgM 39 kDa Band Lyme IgM 41 kDa Band 11/10/22 11/10/22 11/10/22 Range/Units 12:20 08:31 08:06 WBC (4.8-10.8) K/ul RBC (4.20-5.40) M/uL Hgb (12.0-16.0) g/dl Hct (37.0-47.0) % MCV (80.0-100.0) fL MCH (25.0-34.0) pg MCHC (32.0-36.0) g/dL RDW Std Deviation (36.4-46.3) fL RDW Coeff of Bradford (11.5-14.5) % Plt Count (130-400) K/uL MPV (9.4-12.4) fL Immature Gran % (Auto) % Neut % (Auto) % Lymph % (Auto) % [place] % (Auto) % Eos % (Auto) % Baso % (Auto) % Neut # (Auto) (1.40-6.50) K/uL Lymph # (Auto) (1.20-3.40) K/uL [place] # (Auto) (0.11-0.59) K/uL Eos # (Auto) (0.00-0.50) K/uL Baso # (Auto) (0.00-0.20) K/uL Immature Gran # (Auto) (0.01-0.20) K/uL Sodium (136-145) mmol/L Potassium (3.5-5.1) mmol/L Chloride (98-107) mmol/L Carbon Dioxide (21-32) mmol/L Anion Gap (3-11) BUN (6-23) mg/dl Creatinine (0.6-1.2) mg/dl Est Cr Clr Drug Dosing ml/min Est GFR ( Amer) ml/min Est GFR (Non-Af Amer) ml/min BUN/Creatinine Ratio (10-20) Glucose (70-99(Fasting)) mg/dl POC Glucose 123 H 121 H (70-99) mg/dl Calcium (8.6-10.3) mg/dl Phosphorus (2.5-4.9) mg/dl Magnesium (1.7-2.4) mg/dl Total Bilirubin (0.2-1.0) mg/dl AST (13-39) U/L ALT (7-52) U/L Alkaline Phosphatase (34-104) U/L Total Protein (6.0-8.3) gm/dl Albumin (3.4-5.0) gm/dl Globulin (2.5-4.0) gm/dl Albumin/Globulin Ratio (0.9-2) 25-OH Vitamin D Total (30-100) ng/ml PTH Intact (12.0-88.0) pg/ml Lyme Disease IgG Ab (Negative) Lyme IgG (Western Blot) Pending Lyme IgG 18 kDa Band Pending Lyme IgG 23 kDa Band Pending Lyme IgG 28 kDa Band Pending Lyme IgG 30 kDa Band Pending Lyme IgG 39 kDa Band Pending Lyme IgG 41 kDa Band Pending Lyme IgG 45 kDa Band Pending Lyme IgG 58 kDa Band Pending Lyme IgG 66 kDa Band Pending Lyme IgG 93 kDa Band Pending Lyme IgM Ab (WB) Pending Lyme Disease IgM Ab (Negative) Lyme IgM 23 kDa Band Pending Lyme IgM 39 kDa Band Pending Lyme IgM 41 kDa Band Pending 11/10/22 Range/Units 08:06 WBC (4.8-10.8) K/ul RBC (4.20-5.40) M/uL Hgb (12.0-16.0) g/dl Hct (37.0-47.0) % MCV (80.0-100.0) fL MCH (25.0-34.0) pg MCHC (32.0-36.0) g/dL RDW Std Deviation (36.4-46.3) fL RDW Coeff of Bradford (11.5-14.5) % Plt Count (130-400) K/uL MPV (9.4-12.4) fL Immature Gran % (Auto) % Neut % (Auto) % Lymph % (Auto) % [place] % (Auto) % Eos % (Auto) % Baso % (Auto) % Neut # (Auto) (1.40-6.50) K/uL Lymph # (Auto) (1.20-3.40) K/uL [place] # (Auto) (0.11-0.59) K/uL Eos # (Auto) (0.00-0.50) K/uL Baso # (Auto) (0.00-0.20) K/uL Immature Gran # (Auto) (0.01-0.20) K/uL Sodium (136-145) mmol/L Potassium (3.5-5.1) mmol/L Chloride (98-107) mmol/L Carbon Dioxide (21-32) mmol/L Anion Gap (3-11) BUN (6-23) mg/dl Creatinine (0.6-1.2) mg/dl Est Cr Clr Drug Dosing ml/min Est GFR ( Amer) ml/min Est GFR (Non-Af Amer) ml/min BUN/Creatinine Ratio (10-20) Glucose (70-99(Fasting)) mg/dl POC Glucose (70-99) mg/dl Calcium (8.6-10.3) mg/dl Phosphorus (2.5-4.9) mg/dl Magnesium (1.7-2.4) mg/dl Total Bilirubin (0.2-1.0) mg/dl AST (13-39) U/L ALT (7-52) U/L Alkaline Phosphatase (34-104) U/L Total Protein (6.0-8.3) gm/dl Albumin (3.4-5.0) gm/dl Globulin (2.5-4.0) gm/dl Albumin/Globulin Ratio (0.9-2) 25-OH Vitamin D Total (30-100) ng/ml PTH Intact (12.0-88.0) pg/ml Lyme Disease IgG Ab Negative (Negative) Lyme IgG (Western Blot) Lyme IgG 18 kDa Band Lyme IgG 23 kDa Band Lyme IgG 28 kDa Band Lyme IgG 30 kDa Band Lyme IgG 39 kDa Band Lyme IgG 41 kDa Band Lyme IgG 45 kDa Band Lyme IgG 58 kDa Band Lyme IgG 66 kDa Band Lyme IgG 93 kDa Band Lyme IgM Ab (WB) Lyme Disease IgM Ab Equivocal A (Negative) Lyme IgM 23 kDa Band Lyme IgM 39 kDa Band Lyme IgM 41 kDa Band Diagnostic Findings Chest X-Ray 11/10/22 09:57 SINGLE VIEW CHEST CLINICAL HISTORY: Hypoxia. FINDINGS: An AP, portable, upright chest radiograph is compared to study dated 11/09/2022 and correlated with chest CT dated 11/09/2021. The heart is enlarged noting atherosclerotic calcification of the thoracic aorta. The pulmonary vasculature is noncongested. Emphysema and chronic interstitial thickening is similar to previous. Foci of parenchymal scarring are seen throughout both lungs. No airspace consolidation or large pleural effusion is identified. No pneumothorax is seen. The skeletal structures are osteopenic number findings of multifocal osteoblastic metastatic disease were better assessed on prior CT scans. There are chronic/healed left-sided rib fractures. Surgical clips are noted in the left axilla. IMPRESSION: Cardiomegaly and emphysema with no acute cardiopulmonary abnormality identified. ACT 112: Negative or not required by law. Electronically signed by: Curtis Soriano M.D. 11/10/2022 10:30 AM Abdomen/Pelvis CT 11/10/22 11:28 CT abd pelvis wo con CLINICAL HISTORY: fall, high output ostomy, acidosis TECHNIQUE: Helical axial images of the abdomen and pelvis were obtained. Automated dose lowering techniques and/or adjustment according to patient size were utilized for this exam. This exam was performed without intravenous contrast. CT DOSE: 1133.76 mGy.cm COMPARISON: Comparison is made to CT abdomen pelvis 11/09/2021 FINDINGS: Lower chest: Bibasilar atelectasis versus scarring is seen. Bronchial wall thickening is seen. Liver: Hepatic steatosis is noted. Gallbladder and biliary tree: Cholelithiasis is seen without evidence of cholecystitis. No intra- or extrahepatic biliary ductal dilation. Pancreas: Fatty replacement of the pancreas is seen. Spleen: Unremarkable. Adrenals: Unremarkable. Kidneys and ureters: Unremarkable. Bladder: Limited evaluation due to underdistention. Reproductive organs: Unremarkable. Bowel: Small hiatal hernia. Postsurgical changes of descending colostomy with parastomal hernia. The appendix is unremarkable. Lymph nodes Retroperitoneal: Unremarkable. Pelvic: Unremarkable. Mesenteric: Unremarkable. Peritoneum: Normal. Vessels: Atherosclerotic calcifications are seen. Abdominal wall: Redemonstration of multiple abdominal wall hernias containing fat and loops of bowel. No evidence of bowel obstruction. Bones: Left hip total arthroplasty is seen. There are innumerable lytic and sclerotic lesions in the visualized skeleton compatible with bony metastatic disease, similar to prior exam. IMPRESSION: 1. No acute abnormality, in particular no acute fracture in this patient with recent fall.. 2. Redemonstration of colostomy and multiple hernias containing loops of bowel. 3. Stable skeletal metastatic disease. 4. Hepatic steatosis. ACT 112: Negative or not required by law. Electronically signed by: Tucker Johnson M.D. 11/10/2022 4:49 PM PG Care Time/CCT Total # of Minutes Spent Total Time Spent with Patient: Total time spent is greater than 50% in coordination of care (as documented) at patient's floor/unit and/or counseling patient: Coding Level of Care Code 78252 SUB INP/OBS CARE 3/50MIN Diagnoses Metabolic acidosis with normal anion gap and bicarbonate losses E87.20 High output ileostomy R19.8; Z93.2 Weakness R53.1 Urinary tract infection N39.0 Hematuria presence: without hematuria Urinary tract infection type: site unspecified Acute kidney injury N17.9 Hypomagnesemia E83.42 Hypocalcemia E83.51 Hyponatremia E87.1 Diastolic CHF I50.30 Malignant neoplasm of breast metastatic to bone C50.919; C79.51 Peeling skin R23.4 Vitamin D deficiency E55.9 Intertrigo L30.4 Proximal renal tubular acidosis N25.89 Fall W19.XXXA Acute conjunctivitis of both eyes H10.33 (4) Urinary tract infection Hematuria presence: without hematuria Urinary tract infection type: site unspecified Qualified Code(s): N39.0 - Urinary tract infection, site not specified
[2022-11-11] MEDS: carvediloL 3.125 MG TAB PO SCH ×2 (08:42→19:35)
[2022-11-11] MEDS: GABAPENTIN 300 MG CAP PO SCH ×3 (08:42→19:34)
[2022-11-11] MEDS: CIPROFLOXACIN 500 MG TAB PO SCH ×2 (08:42→19:34)
[2022-11-11] MEDS: cefTRIAXone SODIUM 2,000 MG in DEXTROSE 5% 50 ML IV SCH (08:42)
[2022-11-11] MEDS: LOPERAMIDE HCL 2 MG CAP PO SCH ×4 (08:43→19:34)
[2022-11-11] MEDS: MAGNESIUM CHLORIDE W/CALCIUM 64MG DELAYED REL TAB PO SCH ×2 (08:44→19:35)
[2022-11-11] MEDS: PARoxetine HCL 20 MG TAB PO SCH (08:44)
[2022-11-11] MEDS: PANTOprazole 40 MG TAB PO SCH (08:45)
[2022-11-11] MEDS: CALCIUM 600MG + VIT D 400 IU TAB PO SCH (08:45)
[2022-11-11] MEDS: CALCITRIOL 0.25 MCG CAPSULE PO SCH (08:45)
[2022-11-11] MEDS ORDERED: POTASSIUM PHOS 3 MMOL/1 ML INFUSION IV STA (08:45)
[2022-11-11] MEDS: TRIMETHOPRIM/POLYMYXIN B OP SCH ×5 (08:46→19:35)
[2022-11-11] MEDS: MICONAZOLE NITRATE POWDER 85 GM EXT SCH ×2 (08:46→19:35)
[2022-11-11] MEDS: APIXABAN 5 MG TABLET PO SCH ×2 (08:47→19:35)
[2022-11-11] MEDS: INSULIN ASPART PER UNIT CHARGE SC SCH ×4 (08:50→21:11)
[2022-11-11] MEDS ORDERED: POTASSIUM PHOSPHATE 6 MMOL in SODIUM CHLORIDE 0.9% 250 ML IV ONE (09:00)
[2022-11-11] MEDS ORDERED: LACTATED RINGER'S 1,000 ML IV SCH (09:15)
--- NOTE | 2022-11-11 10:28 | Nephrology Progress Note ---
Date of Service November 11, 2022 Assessment & Plan (1) Acute kidney injury: Plan: Prerenal due to increased ostomy output. Creatinine has returned to baseline. Volume status acceptable. Furosemide 20 mg provided yesterday with good urine output. Suggest restarting amiloride today. Encourage even to slightly negative fluid balance. Hold furosemide today. Document strict I/O's. Medications appropriate for kidney function. Gabapentin has been dose adjusted accordingly. Yamel appears to be tolerating gabapentin well. (2) Hypomagnesemia: Plan: Chronic and multifactorial. Poor absorption related to PPI and metformin. 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 Continue BID magnesium chloride. Suggest restarting amiloride today. There is confusion between EMR and provider notes: Yamel has not received amiloride this admission. (3) Hypocalcemia: Plan: Continue calcitriol 1 mcg daily. Ergocalciferol 18039 units twice weekly. Calcium 600 mg + D3. (4) Hyponatremia: Plan: Encourage oral PO solute intake. Appreciate surgical consultation regarding high ostomy losses. Plan of care discussed with Dr. Pina today. (5) Metabolic acidosis with normal anion gap and bicarbonate losses: Plan: Due to ostomy output and pRTA. HCO3 acceptable. (6) Vitamin D deficiency: Plan: Ergocalciferol twice weekly. Calcitriol 1 mcg daily. (7) Proximal renal tubular acidosis: Plan: Restart amiloride 5 mg daily. (8) High output ileostomy: Plan: Imodium increased to 2 mg QID today. Admission and Anticipated Discharge Date Admission Date: November 08, 2022 Subjective No acute events overnight. Ostomy output subjectively improving. Stool is more formed. Yamel denies melena or hematochezia. Appetite improved slightly but remains poor. Yamel states that she is very thirsty. Food is not appealing. She denies nausea. She remains very weak. Yamel states that she has not been out of bed. She denies shortness of breath. She denies orthopnea. She denies fluid retention or edema. Urine output increased with furosemide yesterday. Review of Systems Review of Systems: All systems reviewed & are unremarkable except as noted in HPI & below Physical Exam Constitutional: + thin and + frail appearing; no acute distress Eyes: + anicteric sclerae; no corneal abnormality ENMT: Mouth: + dry oral mucous membranes; no oral mucosal abnormality Neck: normal visual inspection and trachea midline Respiratory: normal respiratory effort Auscultation: lungs clear to auscultation bilaterally Cardiovascular: Rate/Rhythm: regular rate Heart Sounds: normal S1 and normal S2 Extremities: no edema Musculoskeletal: Extremities: no cyanosis and no clubbing Skin: + turgor decreased and + ecchymosis; no jaundice Neurologic: Motor/Sensory: no tremor and no asterixis Psychiatric: Orientation: alert and oriented x 3 Results & Data Vital Signs (Past 12 Hours) Vital Signs Temp Pulse Pulse Resp BP Pulse Ox O2 Del Method 11/11/22 06:49 37.3 C 91 H 20 102/69 90 Nasal Cannula 11/11/22 09:02 89 11/11/22 06:35 82 11/11/22 04:04 37.8 C H 88 16 105/47 L 93 Nasal Cannula 11/10/22 23:19 36.9 C 78 16 89/60 L 96 Nasal Cannula O2 Flow Rate 11/11/22 06:49 2 11/11/22 09:02 11/11/22 06:35 11/11/22 04:04 2 11/10/22 23:19 2 Laboratory Results Laboratory Results - last 24 hr 11/10/22 11/10/22 11/10/22 08:06 08:06 12:20 WBC RBC Hgb Hct MCV MCH MCHC RDW Std Deviation RDW Coeff of Bradford Plt Count MPV Immature Gran % (Auto) Neut % (Auto) Lymph % (Auto) [place] % (Auto) Eos % (Auto) Baso % (Auto) Neut # (Auto) Lymph # (Auto) [place] # (Auto) Eos # (Auto) Baso # (Auto) Immature Gran # (Auto) Sodium Potassium Chloride Carbon Dioxide Anion Gap BUN Creatinine Est Cr Clr Drug Dosing Est GFR ( Amer) Est GFR (Non-Af Amer) BUN/Creatinine Ratio Glucose POC Glucose 123 H Calcium Phosphorus Magnesium Total Bilirubin AST ALT Alkaline Phosphatase Total Protein Albumin Globulin Albumin/Globulin Ratio 25-OH Vitamin D Total PTH Intact Lyme Disease IgG Ab Negative Lyme IgG (Western Blot) Pending Lyme IgG 18 kDa Band Pending Lyme IgG 23 kDa Band Pending Lyme IgG 28 kDa Band Pending Lyme IgG 30 kDa Band Pending Lyme IgG 39 kDa Band Pending Lyme IgG 41 kDa Band Pending Lyme IgG 45 kDa Band Pending Lyme IgG 58 kDa Band Pending Lyme IgG 66 kDa Band Pending Lyme IgG 93 kDa Band Pending Lyme IgM Ab (WB) Pending Lyme Disease IgM Ab Equivocal A Lyme IgM 23 kDa Band Pending Lyme IgM 39 kDa Band Pending Lyme IgM 41 kDa Band Pending 11/10/22 11/10/22 11/11/22 16:39 20:17 04:47 WBC 5.06 RBC 2.98 L Hgb 9.8 L Hct 29.2 L MCV 98.0 MCH 32.9 MCHC 33.6 RDW Std Deviation 64.9 H RDW Coeff of Bradford 18.6 H Plt Count 293 MPV 9.2 L Immature Gran % (Auto) 1.2 Neut % (Auto) 67.2 Lymph % (Auto) 13.6 [place] % (Auto) 5.9 Eos % (Auto) 11.7 Baso % (Auto) 0.4 Neut # (Auto) 3.40 Lymph # (Auto) 0.69 L [place] # (Auto) 0.30 Eos # (Auto) 0.59 H Baso # (Auto) 0.02 Immature Gran # (Auto) 0.06 Sodium Potassium Chloride Carbon Dioxide Anion Gap BUN Creatinine Est Cr Clr Drug Dosing Est GFR ( Amer) Est GFR (Non-Af Amer) BUN/Creatinine Ratio Glucose POC Glucose 131 H 136 H Calcium Phosphorus Magnesium Total Bilirubin AST ALT Alkaline Phosphatase Total Protein Albumin Globulin Albumin/Globulin Ratio 25-OH Vitamin D Total PTH Intact Lyme Disease IgG Ab Lyme IgG (Western Blot) Lyme IgG 18 kDa Band Lyme IgG 23 kDa Band Lyme IgG 28 kDa Band Lyme IgG 30 kDa Band Lyme IgG 39 kDa Band Lyme IgG 41 kDa Band Lyme IgG 45 kDa Band Lyme IgG 58 kDa Band Lyme IgG 66 kDa Band Lyme IgG 93 kDa Band Lyme IgM Ab (WB) Lyme Disease IgM Ab Lyme IgM 23 kDa Band Lyme IgM 39 kDa Band Lyme IgM 41 kDa Band 11/11/22 11/11/22 11/11/22 04:47 04:47 04:47 WBC RBC Hgb Hct MCV MCH MCHC RDW Std Deviation RDW Coeff of Bradford Plt Count MPV Immature Gran % (Auto) Neut % (Auto) Lymph % (Auto) [place] % (Auto) Eos % (Auto) Baso % (Auto) Neut # (Auto) Lymph # (Auto) [place] # (Auto) Eos # (Auto) Baso # (Auto) Immature Gran # (Auto) Sodium 133 L Potassium 3.6 Chloride 103 Carbon Dioxide 23 Anion Gap 7 BUN 21 Creatinine 1.27 H Est Cr Clr Drug Dosing 44.4 Est GFR ( Amer) 50.6 Est GFR (Non-Af Amer) 43.6 BUN/Creatinine Ratio 16.5 Glucose 124 H POC Glucose Calcium 6.0 L Phosphorus 2.4 L Magnesium 2.3 Total Bilirubin 0.5 AST 13 ALT 6 L Alkaline Phosphatase 48 Total Protein 4.9 L Albumin 2.4 L Globulin 2.5 Albumin/Globulin Ratio 1.0 25-OH Vitamin D Total 26.0 L PTH Intact 463.1 H Lyme Disease IgG Ab Lyme IgG (Western Blot) Lyme IgG 18 kDa Band Lyme IgG 23 kDa Band Lyme IgG 28 kDa Band Lyme IgG 30 kDa Band Lyme IgG 39 kDa Band Lyme IgG 41 kDa Band Lyme IgG 45 kDa Band Lyme IgG 58 kDa Band Lyme IgG 66 kDa Band Lyme IgG 93 kDa Band Lyme IgM Ab (WB) Lyme Disease IgM Ab Lyme IgM 23 kDa Band Lyme IgM 39 kDa Band Lyme IgM 41 kDa Band 11/11/22 08:14 WBC RBC Hgb Hct MCV MCH MCHC RDW Std Deviation RDW Coeff of Bradford Plt Count MPV Immature Gran % (Auto) Neut % (Auto) Lymph % (Auto) [place] % (Auto) Eos % (Auto) Baso % (Auto) Neut # (Auto) Lymph # (Auto) [place] # (Auto) Eos # (Auto) Baso # (Auto) Immature Gran # (Auto) Sodium Potassium Chloride Carbon Dioxide Anion Gap BUN Creatinine Est Cr Clr Drug Dosing Est GFR ( Amer) Est GFR (Non-Af Amer) BUN/Creatinine Ratio Glucose POC Glucose 118 H Calcium Phosphorus Magnesium Total Bilirubin AST ALT Alkaline Phosphatase Total Protein Albumin Globulin Albumin/Globulin Ratio 25-OH Vitamin D Total PTH Intact Lyme Disease IgG Ab Lyme IgG (Western Blot) Lyme IgG 18 kDa Band Lyme IgG 23 kDa Band Lyme IgG 28 kDa Band Lyme IgG 30 kDa Band Lyme IgG 39 kDa Band Lyme IgG 41 kDa Band Lyme IgG 45 kDa Band Lyme IgG 58 kDa Band Lyme IgG 66 kDa Band Lyme IgG 93 kDa Band Lyme IgM Ab (WB) Lyme Disease IgM Ab Lyme IgM 23 kDa Band Lyme IgM 39 kDa Band Lyme IgM 41 kDa Band PG Care Time/CCT Total # of Minutes Spent Total Time Spent with Patient: Total time spent is greater than 50% in coordination of care (as documented) at patient's floor/unit and/or counseling patient: Coding Level of Care Code 11503 SUB INP/OBS CARE 3/50MIN Diagnoses Acute kidney injury N17.9 Hypomagnesemia E83.42 Hypocalcemia E83.51 Hyponatremia E87.1 Metabolic acidosis with normal anion gap and bicarbonate losses E87.20 Vitamin D deficiency E55.9 Proximal renal tubular acidosis N25.89 High output ileostomy R19.8; Z93.2
[2022-11-11] MEDS: NICOTINE 14 MG/24 HR PATCH TD SCH (11:12)
[2022-11-11] MEDS: guaiFENesin 600 MG TABCR PO SCH ×2 (11:12→19:34)
[2022-11-11] MEDS: aMILoride HCL 5 MG TAB PO SCH (12:16)
--- NOTE | 2022-11-11 12:33 | Surgery Progress Note ---
Date of Service November 11, 2022 Assessment & Plan Admission and Anticipated Discharge Date Admission Date: November 08, 2022 Supervising Physician Co-Signing Physician Notes No surgical intervention indicated as her hernias are not obstructed. Stoma is healthy. I spoke with the splitter hand who feels as though from a high output perspective with a concern for electrolyte disturbance, the patient really just fell behind with some of her routine treatments to maintain these and notes improvement in her electrolytes with attention recently. There is no surgical indication to change ostomy sites and the patient may have similar output issues even if a different form of ostomy was created. Loperamide was increased, seems to have had some improvement and electrolytes were able to be more stable. Patient may be able to be discharged if ok with nephrology to continue her monitoring and maintenance therapies. Subjective I have seen Yamel this morning. She states she feels as thought the ileostomy output is more manageable. She denies abdominal pain, N/V. Physical Exam 2 Constitutional: + ill appearing and + cachectic; not in distress and not diaphoretic Respiratory: normal respiratory effort; no respiratory distress, no labored breathing and does not use accessory muscles Gastrointestinal (Abdomen): stoma appears healthy, no abdominal distention, abdomen is very soft, non- tender. No intra-abdominal contents obstructed in a hernia. Results & Data Vital Signs (Past 12 Hours) Vital Signs Temp Pulse Pulse Resp BP Pulse Ox O2 Del Method 11/11/22 11:29 Nasal Cannula 11/11/22 11:05 92 Nasal Cannula 11/11/22 06:49 37.3 C 91 H 20 102/69 90 Nasal Cannula 11/11/22 09:02 89 11/11/22 06:35 82 11/11/22 04:04 37.8 C H 88 16 105/47 L 93 Nasal Cannula O2 Flow Rate 11/11/22 11:29 2 11/11/22 11:05 2 11/11/22 06:49 2 11/11/22 09:02 11/11/22 06:35 11/11/22 04:04 2 PG Care Time/CCT Total # of Minutes Spent Total Time Spent with Patient: Total time spent is greater than 50% in coordination of care (as documented) at patient's floor/unit and/or counseling patient: Coding Level of Care Code 82241 SUB INP/OBS CARE 1/25MIN Medical Decision Making Low Complexity Diagnoses
[2022-11-11] MEDS: PSYLLIUM or GUAR GUM FIBER POWDER PACKET PO SCH (13:53)
[2022-11-11] MEDS: ATORVASTATIN 10 MG TAB PO SCH (19:35)
[2022-11-11] MEDS: oxyCODONE HCL IR 5 MG TAB (IMMEDIATE RELEASE) PO PRN (19:53)
[2022-11-12 05:05] LABS: Basophils # (auto) 0.03 K/uL (0.00-0.20); Basophils % (auto) 0.5 %; Eosinophils % (auto) 11.3 %; Hematocrit (blood only) 31.1 % (37.0-47.0); Hemoglobin 10.3 g/dl (12.0-16.0); Immature Granulocytes # (auto) 0.06 K/uL (0.01-0.20); Lymphocytes # (auto) 0.99 K/uL (1.20-3.40); Mean Corpuscular Hemoglobin 32.9 pg (25.0-34.0); Mean Corpuscular Hgb Conc 33.1 g/dL (32.0-36.0); Mean Corpuscular Volume 99.4 fL (80.0-100.0); Monocytes % (auto) 8.1 %; Neutrophils # (auto) 3.91 K/uL (1.40-6.50); Neutrophils % (auto) 63.1 %; Platelet Count 268 K/uL (130-400); RDW Coefficient of Variation 18.7 % (11.5-14.5); RDW Standard Deviation 66.3 fL (36.4-46.3); Red Blood Count 3.13 M/uL (4.20-5.40); White Blood Count 6.19 K/ul (4.8-10.8)
[2022-11-12 05:26] LABS: BUN Creatinine Ratio 15.1 (10-20); Calcium 6.1 mg/dl (8.6-10.3); Creatinine Clr Calc Pharmacy 44.7 ml/min; Est GFR (African American) 51.1 ml/min; Magnesium 2.3 mg/dl (1.7-2.4); Phosphorus 2.8 mg/dl (2.5-4.9); Potassium 3.3 mmol/L (3.5-5.1)
[2022-11-12] MEDS: cefTRIAXone SODIUM 2,000 MG in DEXTROSE 5% 50 ML IV SCH (06:05)
[2022-11-12] MEDS ORDERED: POTASSIUM CHLORIDE CRTAB 20 MEQ TABCR PO STA (07:47)
--- NOTE | 2022-11-12 07:48 | Hospitalist Progress Note ---
Date of Service November 12, 2022 Assessment & Plan (1) Metabolic acidosis with normal anion gap and bicarbonate losses: Plan: presented with significant electrolyte abnormalities w/ nonanion gap metabolic acidosis 2nd to high output ileostomy/diuretic use following a fall at home/reported weakness CT head without acute CVA * Fall suspected multifactorial in patient with metastatic breast cancer progressed on Faslodex/Ibrance as well as anastrazole, most recently on Xeloda with worsening neuropathy and peeling of hands/feet, hypomagnesemia/electrolyte derangements (suspected RTA type [address] Yepez's recent note, placed on amiloride), dehydration, OZIEL on presentation. STOPPING her Xeloda as discussed with Dr Montoya prior to admission -- need f/u outpatient Bicarb 15 on presentation with BUN/Cr 31/1.68, Na 129, Mag 1.3, Ca 6.5, ionized ca 0.89. suspected 2nd to diuretic use as well as high output ostomy, renal tubular acidosis suspect in most recent nephrology follow up * Given NaHCO3 IV on admission, electrolyte replacement * Acidosis resolved on repeat labs, bicarb IV stopped Mag IV replacement for mag 1.3 on admission, wnl x past two days with DISCONTINUATION of mag oxide 800mg BID and increasing her mag chloride (slow mag) to BID. ?2nd to PPI use/metformin, poor absorption. -High output ostomy/proximal RTA contributing -Stool testing for PCR/cdiff/fecal occult NEGATIVE Nephrology on consult, appreciate assistance/continued recommendations - PLANNING TO HOLD FURTHER AMILORIDE FOR AM, soft BP/dehydration Started imodium given stool studies negative/PCR, increased to 4mg TID, metamucil daily. Motion Picture Equipment Machinist on consult To increase her food consumption, PB/marshmallow sandwich, planning oatmeal/more fiber in AM Reports possibly slight decreased output today, needs continued monitoring Tx FERNANDO/equivocal Lyme as below Labs much improved today and stable but will need continued monitoring Repeat stool studies while on abx (2) High output ileostomy: Plan: as above, attempting to get to slow. mag replacement w/ slow mag INSTRUCTIONAL SERVICES LIBRARIAN discontinued, slow mag increased to BID imodium increased, metamucil daily increase food/fiber intake monitor electrolytes/replacement as needed (3) Weakness: Plan: Multifactorial, setting of metastatic breast cancer, skeletal disease, neuropathy from her Xeloda/peeling of hands/feel, metabolic acodosis w/ electrolyte disturbances (hypomag, hypoNa, hypocalcemia), UTI, possible Lyme. Also CANNOT exclude lumbar stenosis as contributing (MRI earlier this year w/ heme/onc noting several disc bulges, likely no surgical correction given blastic/lytic lesions, unable to provide orthotics given ostomy placement) Tx high output ostomy/metabolic acidosis as above, slowing reported afternoon 11/12 Tx UTI, pseudomonas on cx - initially on rocephin for GNB, but switched to Cipro given not cover for pseudomonas --> Planned 500mg BID x 3 days (last dose tonight, 11/12) Equivocal Lyme, continue Rocephin for now but increased to 2gm IV daily. F/u WB testing Neuropathy- Gabapentin renally dosed to 300mg TID (was on QID) -- rec to reduce to TID at dc given CrCl 30s. B12 not deficient (had been getting replacement) - STOPPING Xeloda Of note, patient had unreported fall to ground in ER prior to coming up to the floor on AM 11/09 which was not reported. Contacted nursing/charge, ER to do event report. No head trauma to warrant CT at present however did obtain imaging of right femur/hip, no acute fracture thankfully ECHO w/ RVSP elevated to 40-50mmHg. ?underlying BLAKE. Normal EF. Grade 1 diastolic dysfunction. mild MR, mod TR Consideration for underlying BLAKE, diastolic HF. Attempt overnight pulse ox study for tonight --> consider outpt sleep study, ?diastolic HF in smoker Continue PT/OT, ref to [facility] made Sunday per Radha from [facility], f/u sunday for referral (4) Urinary tract infection: Plan: as above, pseudomonas on urine cx, cipro for treatment. planning 3 days given "asymptomatic" (last dose today), blood cultures remaining NGTD from admission (5) Acute kidney injury: Plan: Dehydrated on admission, BUN/Cr 31/1.68. PRerenal, increased ostomy output IVF provided, lasix 20mg IV on 11/09 & 11/10 for overload (Dr gaffney had stopped her amiloride as ordered on admission) No further lasix, amiloride resumed by Dr Yepez 11/11 Renal dose meds/avoid nephrotoxins as able (Gabapentin reduced to 300mg TID, taking QID at home) BUN/Cr 19/1.26 -- holding amiloride for AM per discussion w/ Dr Yepez Monitor BMP in AM (6) Hypomagnesemia: Plan: as above, 2nd to high output ileostomy/metformin use suspected, as well as PPI use, poor absorption. 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 TSH wnl Lasix as outlined, amiloride resumed for today as above Na improved 134 on labs and will monitor of note, current smoker as well in setting of malignancy Monitor BMP in AM (9) Diastolic CHF: Plan: follows with Dr Barkley - appeared DRY on exam on admission, recently started amiloride as well per nephrology and was on daily lasix 40mg Continue amiloride unless otherwise directed by nephrology (had been dc on 11/09 as above, resumed for 11/11) --> HOLDING Amiloride for am Would NOT resume her lasix Losartan remains on hold for borderline BP/Cr elevation (improving) Coreg continued, hold parameters to give unless SBP <90 or HR <60 ECHO w/ LV systolic function normal. Grade I diastolic dysfunction. RV mildly dilated. RVSP is normal. Mild MR, moderate TR. RVSP elevated to 40-50mmhg ?underlying sleep apnea. Denied snoring/apneic periods but not ruled out Will check overnight pulse ox study Monitor daily weights (down compared to prior, poor PO intake/increased ostomy output) Monitor I&Os (10) Malignant neoplasm of breast metastatic to bone: Plan: discussed w/ heme/onc during inpatient encounter -- to STOP her xeloda, causing worsening neuropathy, peeling of hands/feet (improving since stopping this) can call Dr Montoya if needed, did see in ER planning to switch to Enhertu or fulvestrant/apelisib or elacestrant/apelisib in follow up will need f/u treatment options/sooner f/u at dc Still current smoker, 1/2ppd. Nicotine patch ordered. 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 CT head negative. Tx as outlined above, continued PT/OT while inpatient, likely rehab [place] [facility] if unable to safelty dc home (16) Acute conjunctivitis of both eyes: Plan: continue polymixin for now , improving on exam (although patient wasn't sure) --> continued and looks better this afternoon utilize warm compress, ?blocked gland Montior Plan continued inpatient stay Nephrology following, appreciate recs/assistance amiloride on hold for AM, continue imodium/metamucil and attempting to get ostomy output to decrease. Cipro to be completed today for pseudomonas UTI ("asymptomatic"), Ceftriaxone continued for equivocal Lyme testing and will need f/u on WB testing Mood/cognition stable at present (although endorsed some depression yesterday about continued inpatient stay/ideally wanting to go home but knows too weak in current state) Needs sooner f/u with hematology/oncology at discharge to discuss switching chemotherapy regimen moving forward. Xeloda discontinued as above Continue PT/OT while inpatient, ref to [facility] made on Sunday Admission and Anticipated Discharge Date Admission Date: November 08, 2022 Subjective EVal this morning, sitting up in bed, friend at bedside. Ostomy leaking, changed by nursing. She is pushing fluids - discussed pushing more food/oatmeal/etc to help slow. She plans on oatmeal tomorrow for breakfast. Will change eye drops today. She would like dose of oxycodone, which hopefully will also help to slow the diarrhea as well given effects of opiates. Inquiring about amiloride/hold parameters. Held her AM coreg for SBP 80s, but denies any lightheaded/dizziness. Discussed w/ Dr Yepez and will plan to hold her amiloride for tomorrow. Reports therapy did work with her yesterday, dangled legs/leg exercises which she does at home. Will continue therapy, see if able to eval again today. Will see about podiatry to clip her nails as well if someone able to come in per patient request. She is going to attempt to eat more foods as well to decrease output/improve nutiriton. Discussed overnight sleep study, she is agreeable. When asked about CPAP if needed, she said she would try. She is a nose breather, so could tolerate nasal pillows in f/u outpatient. Contacted sister for update, no need for formal call. She will be in tomorrow again around 10am, friends visiting with alexandra twice daily at present. Questions/concerns addressed at this time. Physical Exam Physical Exam: General: chronically ill appearing female resting in bed, improved spirits today, smiling, friend at bedside, NAD HEENT: bilateral crusting of eyes improving, pupils reactive, mm slightly dry but improved from day prior, trachea midline, top dentures in place Resp: diminished in the bases, decreased wheezing, no crackles/rales, 2L NC, forehead probe in place CV: regular rate/rhythm, +faint murmur, trace pedal edema bilaterally, calves nontender GI:+BS throughout, ostomy with copious brown/green output (slightly decreased this afternoon, some light brown liquid/semi-formed stool in bag) surrounding erythema of colostomy almost completely resolved : purewick draining concentrated urine intertrigo to groin bilaterally improving, desenex in place MSK/Neuro/skin: no focal deficit, no slurred speech, follows commands, generalized weakness R elbow with slight redness from fall/no cellulitis or sanjay step off, ROM intact b/l knee with abrasion anteriorly, pulses palpable, ROM intact generalized weakness but equal bilaterally bilateral peeling of hands/feet, decreased purple discoloration --> CONTINUED IMPROVEMENT Psych: alert to person/place, intermittent confusion to time of day, pleasant and cooperative with exam but fatigued appearing (slightly improved) Results & Data Results & Data Vital Signs (Past 12 Hours) Vital Signs Temp Pulse Pulse Resp BP Pulse Ox O2 Del Method 11/12/22 07:34 36.7 C 90 19 98/64 L 95 Nasal Cannula 11/12/22 04:28 36.5 C 89 20 93/66 L 94 Nasal Cannula 11/11/22 23:20 36.7 C 77 18 93/60 L 97 Nasal Cannula 11/11/22 22:00 88 O2 Flow Rate 11/12/22 07:34 2 11/12/22 04:28 2 11/11/22 23:20 2 11/11/22 22:00 Laboratory Results 11/12/22 11/12/22 11/11/22 Range/Units 04:24 04:24 19:50 WBC 6.19 (4.8-10.8) K/ul RBC 3.13 L (4.20-5.40) M/uL Hgb 10.3 L (12.0-16.0) g/dl Hct 31.1 L (37.0-47.0) % MCV 99.4 (80.0-100.0) fL MCH 32.9 (25.0-34.0) pg MCHC 33.1 (32.0-36.0) g/dL RDW Std Deviation 66.3 H (36.4-46.3) fL RDW Coeff of Bradford 18.7 H (11.5-14.5) % Plt Count 268 (130-400) K/uL MPV 9.0 L (9.4-12.4) fL Immature Gran % (Auto) 1.0 % Neut % (Auto) 63.1 % Lymph % (Auto) 16.0 % Parmer % (Auto) 8.1 % Eos % (Auto) 11.3 % Baso % (Auto) 0.5 % Neut # (Auto) 3.91 (1.40-6.50) K/uL Lymph # (Auto) 0.99 L (1.20-3.40) K/uL Parmer # (Auto) 0.50 (0.11-0.59) K/uL Eos # (Auto) 0.70 H (0.00-0.50) K/uL Baso # (Auto) 0.03 (0.00-0.20) K/uL Immature Gran # (Auto) 0.06 (0.01-0.20) K/uL Sodium 134 L (136-145) mmol/L Potassium 3.3 L (3.5-5.1) mmol/L Chloride 106 (98-107) mmol/L Carbon Dioxide 22 (21-32) mmol/L Anion Gap 6 (3-11) BUN 19 (6-23) mg/dl Creatinine 1.26 H (0.6-1.2) mg/dl Est Cr Clr Drug Dosing 44.7 ml/min Est GFR ( Amer) 51.1 ml/min Est GFR (Non-Af Amer) 44.0 ml/min BUN/Creatinine Ratio 15.1 (10-20) Glucose 122 H (70-99(Fasting)) mg/dl POC Glucose 144 H (70-99) mg/dl Calcium 6.1 L (8.6-10.3) mg/dl Phosphorus 2.8 (2.5-4.9) mg/dl Magnesium 2.3 (1.7-2.4) mg/dl 11/11/22 11/11/22 11/11/22 Range/Units 17:18 12:25 08:14 WBC (4.8-10.8) K/ul RBC (4.20-5.40) M/uL Hgb (12.0-16.0) g/dl Hct (37.0-47.0) % MCV (80.0-100.0) fL MCH (25.0-34.0) pg MCHC (32.0-36.0) g/dL RDW Std Deviation (36.4-46.3) fL RDW Coeff of Bradford (11.5-14.5) % Plt Count (130-400) K/uL MPV (9.4-12.4) fL Immature Gran % (Auto) % Neut % (Auto) % Lymph % (Auto) % Parmer % (Auto) % Eos % (Auto) % Baso % (Auto) % Neut # (Auto) (1.40-6.50) K/uL Lymph # (Auto) (1.20-3.40) K/uL Parmer # (Auto) (0.11-0.59) K/uL Eos # (Auto) (0.00-0.50) K/uL Baso # (Auto) (0.00-0.20) K/uL Immature Gran # (Auto) (0.01-0.20) K/uL Sodium (136-145) mmol/L Potassium (3.5-5.1) mmol/L Chloride (98-107) mmol/L Carbon Dioxide (21-32) mmol/L Anion Gap (3-11) BUN (6-23) mg/dl Creatinine (0.6-1.2) mg/dl Est Cr Clr Drug Dosing ml/min Est GFR ( Amer) ml/min Est GFR (Non-Af Amer) ml/min BUN/Creatinine Ratio (10-20) Glucose (70-99(Fasting)) mg/dl POC Glucose 119 H 162 H 118 H (70-99) mg/dl Calcium (8.6-10.3) mg/dl Phosphorus (2.5-4.9) mg/dl Magnesium (1.7-2.4) mg/dl PG Care Time/CCT Total # of Minutes Spent Total Time Spent with Patient: Total time spent is greater than 50% in coordination of care (as documented) at patient's floor/unit and/or counseling patient: Coding Level of Care Code 24109 SUB INP/OBS CARE 3/50MIN Diagnoses Metabolic acidosis with normal anion gap and bicarbonate losses E87.20 High output ileostomy R19.8; Z93.2 Weakness R53.1 Urinary tract infection N39.0 Hematuria presence: without hematuria Urinary tract infection type: site unspecified Acute kidney injury N17.9 Hypomagnesemia E83.42 Hypocalcemia E83.51 Hyponatremia E87.1 Diastolic CHF I50.30 Malignant neoplasm of breast metastatic to bone C50.919; C79.51 Peeling skin R23.4 Vitamin D deficiency E55.9 Intertrigo L30.4 Proximal renal tubular acidosis N25.89 Fall W19.XXXA Acute conjunctivitis of both eyes H10.33 (4) Urinary tract infection Hematuria presence: without hematuria Urinary tract infection type: site unspecified Qualified Code(s): N39.0 - Urinary tract infection, site not specified
[2022-11-12] MEDS: LOPERAMIDE HCL 2 MG CAP PO SCH ×3 (08:39→20:32)
[2022-11-12] MEDS: APIXABAN 5 MG TABLET PO SCH ×2 (08:39→20:34)
[2022-11-12] MEDS: GABAPENTIN 300 MG CAP PO SCH ×3 (08:40→20:33)
[2022-11-12] MEDS: PANTOprazole 40 MG TAB PO SCH (08:40)
[2022-11-12] MEDS: guaiFENesin 600 MG TABCR PO SCH ×2 (08:40→20:33)
[2022-11-12] MEDS: CALCIUM 600MG + VIT D 400 IU TAB PO SCH (08:40)
[2022-11-12] MEDS: CALCITRIOL 0.25 MCG CAPSULE PO SCH (08:40)
[2022-11-12] MEDS: aMILoride HCL 5 MG TAB PO SCH (08:41)
[2022-11-12] MEDS: CIPROFLOXACIN 500 MG TAB PO SCH ×2 (08:41→20:32)
[2022-11-12] MEDS: PARoxetine HCL 20 MG TAB PO SCH (08:41)
[2022-11-12] MEDS: MAGNESIUM CHLORIDE W/CALCIUM 64MG DELAYED REL TAB PO SCH (08:41)
[2022-11-12] MEDS: carvediloL 3.125 MG TAB PO SCH ×2 (08:42→20:33)
[2022-11-12] MEDS: NICOTINE 14 MG/24 HR PATCH TD SCH (08:42)
[2022-11-12] MEDS: TRIMETHOPRIM/POLYMYXIN B OP SCH ×4 (08:43→20:31)
[2022-11-12] MEDS: INSULIN ASPART PER UNIT CHARGE SC SCH ×4 (08:59→21:18)
[2022-11-12] MEDS ORDERED: STAT IV STA (09:47)
[2022-11-12] MEDS ORDERED: CALCIUM GLUCONATE 10% 1,000 MG in SODIUM CHLOR 0.9% MINI-B 50 ML IV STA (09:57)
[2022-11-12] MEDS: PSYLLIUM or GUAR GUM FIBER POWDER PACKET PO SCH (10:34)
[2022-11-12] MEDS: MICONAZOLE NITRATE POWDER 85 GM EXT SCH ×2 (10:34→20:31)
[2022-11-12] MEDS: POTASSIUM CHLORIDE CRTAB 20 MEQ TABCR PO SCH (10:40)
[2022-11-12] MEDS: POTASSIUM CHLORIDE / WTR 10 MEQ/100 ML PLCT IV SCH ×2 (11:29→12:08)
[2022-11-12] MEDS: oxyCODONE HCL IR 5 MG TAB (IMMEDIATE RELEASE) PO PRN ×2 (12:08→20:36)
--- NOTE | 2022-11-12 13:06 | Nephrology Progress Note ---
Date of Service November 12, 2022 Assessment & Plan (1) Acute kidney injury: Plan: Prerenal due to increased ostomy output. Creatinine has returned to baseline. Volume status acceptable. Furosemide 20 mg provided 10/5 and 10/6 with good urine output. Amiloride restarted yesterday. Encourage even to slightly negative fluid balance. Hold furosemide today. Hold amiloride tomorrow. Document strict I/O's. Medications appropriate for kidney function. Gabapentin has been dose adjusted accordingly. Yamel appears to be tolerating gabapentin well. (2) Hypomagnesemia: Plan: Chronic and multifactorial. Poor absorption related to PPI and metformin. 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 PO magnesium is being held due to increased ostomy output. I discussed the plan of care with Yudy Acevedo PA-C this AM. Hold amiloride pending improvement in volume status. (3) Hypocalcemia: Plan: Continue calcitriol 1 mcg daily. Ergocalciferol 73723 units twice weekly. Calcium 600 mg + D3. Calcium gluconate 1 gram IV provided today. (4) Hyponatremia: Plan: Encourage oral PO solute intake. Appreciate surgical consultation regarding high ostomy losses. Unfortunately, output increased despite aggressive use of Imodium. (5) Metabolic acidosis with normal anion gap and bicarbonate losses: Plan: Due to ostomy output and pRTA. HCO3 acceptable. (6) Vitamin D deficiency: Plan: Ergocalciferol twice weekly. Calcitriol 1 mcg daily. (7) Proximal renal tubular acidosis: Plan: Restarted amiloride 5 mg daily yesterday. Medication will now be held due to volume status. (8) High output ileostomy: Plan: Imodium increased to 2 mg QID yesterday. . Admission and Anticipated Discharge Date Admission Date: November 08, 2022 Subjective No acute events overnight. Ostomy output unfortunately notably increased. No melena or hematochezia. Appetite is poor. Yamel reports continued thirst. She is drinking plenty of fluids. BP slightly low. Overall, Yamel states that she feels well and would like to return home. She remains very weak. She acknowledges her need for continued assistance. Review of Systems Review of Systems: All systems reviewed & are unremarkable except as noted in HPI & below Physical Exam Constitutional: + thin and + frail appearing; no acute distress Eyes: + anicteric sclerae; no corneal abnormality ENMT: Mouth: + dry oral mucous membranes; no oral mucosal abnormality Neck: normal visual inspection and trachea midline Respiratory: normal respiratory effort Auscultation: lungs clear to auscultation bilaterally Cardiovascular: Rate/Rhythm: regular rate Heart Sounds: normal S1 and normal S2 Extremities: no edema Musculoskeletal: Extremities: no cyanosis and no clubbing Skin: + turgor decreased and + ecchymosis; no jaundice Neurologic: Motor/Sensory: no tremor and no asterixis Psychiatric: Orientation: alert and oriented x 3 Results & Data Vital Signs (Past 12 Hours) Vital Signs Temp Pulse Resp BP Pulse Ox O2 Del Method O2 Flow Rate 11/12/22 11:54 36.6 C 88 18 83/58 L 93 Nasal Cannula 2 11/12/22 07:48 Nasal Cannula 2 11/12/22 07:34 36.7 C 90 19 98/64 L 95 Nasal Cannula 2 11/12/22 04:28 36.5 C 89 20 93/66 L 94 Nasal Cannula 2 Laboratory Results Laboratory Results - last 24 hr 11/11/22 11/11/22 11/12/22 17:18 19:50 04:24 WBC 6.19 RBC 3.13 L Hgb 10.3 L Hct 31.1 L MCV 99.4 MCH 32.9 MCHC 33.1 RDW Std Deviation 66.3 H RDW Coeff of Bradford 18.7 H Plt Count 268 MPV 9.0 L Immature Gran % (Auto) 1.0 Neut % (Auto) 63.1 Lymph % (Auto) 16.0 Wilkin % (Auto) 8.1 Eos % (Auto) 11.3 Baso % (Auto) 0.5 Neut # (Auto) 3.91 Lymph # (Auto) 0.99 L Wilkin # (Auto) 0.50 Eos # (Auto) 0.70 H Baso # (Auto) 0.03 Immature Gran # (Auto) 0.06 Sodium Potassium Chloride Carbon Dioxide Anion Gap BUN Creatinine Est Cr Clr Drug Dosing Est GFR ( Amer) Est GFR (Non-Af Amer) BUN/Creatinine Ratio Glucose POC Glucose 119 H 144 H Calcium Phosphorus Magnesium 11/12/22 11/12/22 11/12/22 04:24 07:54 12:09 WBC RBC Hgb Hct MCV MCH MCHC RDW Std Deviation RDW Coeff of Bradford Plt Count MPV Immature Gran % (Auto) Neut % (Auto) Lymph % (Auto) Wilkin % (Auto) Eos % (Auto) Baso % (Auto) Neut # (Auto) Lymph # (Auto) Wilkin # (Auto) Eos # (Auto) Baso # (Auto) Immature Gran # (Auto) Sodium 134 L Potassium 3.3 L Chloride 106 Carbon Dioxide 22 Anion Gap 6 BUN 19 Creatinine 1.26 H Est Cr Clr Drug Dosing 44.7 Est GFR ( Amer) 51.1 Est GFR (Non-Af Amer) 44.0 BUN/Creatinine Ratio 15.1 Glucose 122 H POC Glucose 147 H 162 H Calcium 6.1 L Phosphorus 2.8 Magnesium 2.3 PG Care Time/CCT Total # of Minutes Spent Total Time Spent with Patient: Total time spent is greater than 50% in coordination of care (as documented) at patient's floor/unit and/or counseling patient: Coding Level of Care Code 17272 SUB INP/OBS CARE 3/50MIN Diagnoses Acute kidney injury N17.9 Hypomagnesemia E83.42 Hypocalcemia E83.51 Hyponatremia E87.1 Metabolic acidosis with normal anion gap and bicarbonate losses E87.20 Vitamin D deficiency E55.9 Proximal renal tubular acidosis N25.89 High output ileostomy R19.8; Z93.2
[2022-11-12] MEDS: ATORVASTATIN 10 MG TAB PO SCH (20:33)
[2022-11-13] MEDS: TRIMETHOPRIM/POLYMYXIN B OP SCH ×6 (00:05→22:29)
[2022-11-13] MEDS: oxyCODONE HCL IR 5 MG TAB (IMMEDIATE RELEASE) PO PRN ×3 (00:12→22:32)
[2022-11-13 05:18] LABS: Basophils # (auto) 0.05 K/uL (0.00-0.20); Basophils % (auto) 0.5 %; Eosinophils # (auto) 0.99 K/uL (0.00-0.50); Eosinophils % (auto) 9.5 %; Hematocrit (blood only) 35.3 % (37.0-47.0); Hemoglobin 11.6 g/dl (12.0-16.0); Immature Granulocytes # (auto) 0.18 K/uL (0.01-0.20); Immature Granulocytes % (auto) 1.7 %; Lymphocytes # (auto) 1.22 K/uL (1.20-3.40); Lymphocytes % (auto) 11.7 %; Mean Corpuscular Hemoglobin 33.6 pg (25.0-34.0); Mean Corpuscular Hgb Conc 32.9 g/dL (32.0-36.0); Mean Corpuscular Volume 102.3 fL (80.0-100.0); Mean Platelet Volume 9.1 fL (9.4-12.4); Monocytes # (auto) 1.05 K/uL (0.11-0.59); Monocytes % (auto) 10.1 %; Neutrophils # (auto) 6.91 K/uL (1.40-6.50); Neutrophils % (auto) 66.5 %; Platelet Count 321 K/uL (130-400); RDW Coefficient of Variation 18.7 % (11.5-14.5); RDW Standard Deviation 67.5 fL (36.4-46.3); Red Blood Count 3.45 M/uL (4.20-5.40)
[2022-11-13 05:38] LABS: Albumin Level 2.5 gm/dl (3.4-5.0); BUN Creatinine Ratio 12.6 (10-20); Bilirubin,Total 0.4 mg/dl (0.2-1.0); Calcium 6.2 mg/dl (8.6-10.3); Creatinine Clr Calc Pharmacy 35.3 ml/min; Est GFR (African American) 38.5 ml/min; Est GFR (Non-African American) 33.3 ml/min; Globulin 2.5 gm/dl (2.5-4.0); Magnesium 2.1 mg/dl (1.7-2.4); Phosphorus 3.2 mg/dl (2.5-4.9); Potassium 3.8 mmol/L (3.5-5.1); Uric Acid 12.8 mg/dl (2.6-7.2)
[2022-11-13] MEDS: cefTRIAXone SODIUM 2,000 MG in DEXTROSE 5% 50 ML IV SCH (07:28)
[2022-11-13] MEDS: INSULIN ASPART PER UNIT CHARGE SC SCH ×4 (09:11→22:31)
[2022-11-13] MEDS: carvediloL 3.125 MG TAB PO SCH ×2 (09:12→22:29)
[2022-11-13] MEDS: CALCITRIOL 0.25 MCG CAPSULE PO SCH (09:13)
[2022-11-13] MEDS: LOPERAMIDE HCL 2 MG CAP PO SCH (09:13)
[2022-11-13] MEDS: MICONAZOLE NITRATE POWDER 85 GM EXT SCH ×2 (09:13→22:31)
[2022-11-13] MEDS: PSYLLIUM or GUAR GUM FIBER POWDER PACKET PO SCH (09:14)
[2022-11-13] MEDS: NICOTINE 14 MG/24 HR PATCH TD SCH (09:15)
[2022-11-13] MEDS: ERGOCALCIFEROL 50,000 UNITS 1250 MCG CAP PO SCH (09:15)
[2022-11-13] MEDS: guaiFENesin 600 MG TABCR PO SCH ×2 (09:15→22:29)
[2022-11-13] MEDS: CALCIUM 600MG + VIT D 400 IU TAB PO SCH (09:16)
[2022-11-13] MEDS: GABAPENTIN 300 MG CAP PO SCH ×3 (09:16→22:30)
[2022-11-13] MEDS: APIXABAN 5 MG TABLET PO SCH ×2 (09:17→22:31)
[2022-11-13] MEDS: POTASSIUM CHLORIDE CRTAB 20 MEQ TABCR PO SCH (09:17)
[2022-11-13] MEDS: PARoxetine HCL 20 MG TAB PO SCH (09:17)
[2022-11-13] MEDS: PANTOprazole 40 MG TAB PO SCH (09:18)
--- NOTE | 2022-11-13 09:48 | Nephrology Progress Note ---
Date of Service November 13, 2022 Assessment & Plan (1) Acute kidney injury: Plan: Prerenal due to increased ostomy output. Creatinine has returned to baseline. Volume status acceptable. Furosemide 20 mg provided 11/09 and 11/10 with good urine output. Amiloride restarted over the weekend but subsequently held due to high ostomy output and progressive volume depletion. Encourage even to slightly negative fluid balance. Document strict I/O's. Medications appropriate for kidney function. Gabapentin has been dose adjusted accordingly. Yamel appears to be tolerating gabapentin well. (2) Hypomagnesemia: Plan: Chronic and multifactorial. Poor absorption related to PPI and metformin. 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 PO magnesium is being held due to increased ostomy output. Hold amiloride pending improvement in volume status. Monitor daily. (3) Hypocalcemia: Plan: Continue calcitriol 1 mcg daily. Ergocalciferol 75147 units twice weekly. Calcium 600 mg + D3. Corrected serum calcium acceptable. (4) Hyponatremia: Plan: Encourage oral PO solute intake. Recheck sNa tomorrow AM. (5) Metabolic acidosis with normal anion gap and bicarbonate losses: Plan: Due to ostomy output and pRTA. HCO3 acceptable. (6) Vitamin D deficiency: Plan: Ergocalciferol twice weekly. Calcitriol 1 mcg daily. (7) Proximal renal tubular acidosis: Plan: Hold amiloride. Medication will now be held due to volume status. (8) High output ileostomy: Admission and Anticipated Discharge Date Admission Date: November 08, 2022 Subjective No acute events overnight. Ostomy output remains ~3 L/d. Liquid stool in bag. Blood pressure remains low. Carvedilol held. Yamel reports improving appetite. No fevers or chills. No abdominal pain. Weakness persists. Requiring supplemental oxygen this AM. Denies dyspnea. Review of Systems Review of Systems: All systems reviewed & are unremarkable except as noted in HPI & below Physical Exam Constitutional: + thin and + frail appearing; no acute distress Eyes: + anicteric sclerae; no corneal abnormality ENMT: Mouth: + dry oral mucous membranes; no oral mucosal abnormality Neck: normal visual inspection and trachea midline Respiratory: normal respiratory effort Auscultation: lungs clear to auscultation bilaterally Cardiovascular: Rate/Rhythm: regular rate Heart Sounds: normal S1 and normal S2 Extremities: no edema Musculoskeletal: Extremities: no cyanosis and no clubbing Skin: + turgor decreased and + ecchymosis; no jaundice Neurologic: Motor/Sensory: no tremor and no asterixis Psychiatric: Orientation: alert and oriented x 3 Results & Data Vital Signs (Past 12 Hours) Vital Signs Temp Pulse Pulse Pulse Resp BP Pulse Ox 11/13/22 07:18 11/13/22 06:00 94 H 11/13/22 07:41 36.3 C L 97 H 18 91/65 L 90 11/13/22 04:29 36.9 C 93 H 16 103/69 85 L 11/13/22 01:01 92 H 11/12/22 23:16 36.9 C 99 H 16 100/69 83 L 11/12/22 22:06 99 H Pulse Ox O2 Del Method O2 Del Method O2 Flow Rate O2 Flow Rate FiO2 11/13/22 07:18 Nasal Cannula 3 11/13/22 06:00 11/13/22 07:41 Nasal Cannula 3 11/13/22 04:29 Room Air 11/13/22 01:01 89 L Room Air 0 21 11/12/22 23:16 Room Air 11/12/22 22:06 93 Room Air Laboratory Results Laboratory Results - last 24 hr 11/12/22 11/12/22 11/12/22 12:09 17:15 20:23 WBC RBC Hgb Hct MCV MCH MCHC RDW Std Deviation RDW Coeff of Bradford Plt Count MPV Immature Gran % (Auto) Neut % (Auto) Lymph % (Auto) [place] % (Auto) Eos % (Auto) Baso % (Auto) Neut # (Auto) Lymph # (Auto) [place] # (Auto) Eos # (Auto) Baso # (Auto) Immature Gran # (Auto) Sodium Potassium Chloride Carbon Dioxide Anion Gap BUN Creatinine Est Cr Clr Drug Dosing Est GFR ( Amer) Est GFR (Non-Af Amer) BUN/Creatinine Ratio Glucose POC Glucose 162 H 111 H 134 H Uric Acid Calcium Phosphorus Magnesium Total Bilirubin AST ALT Alkaline Phosphatase Total Protein Albumin Globulin Albumin/Globulin Ratio Stl C. diff Tox B Gene Stl Yersinia Cult Final Stool Comments Giardia Antigen 11/12/22 11/12/22 11/12/22 Unknown Unknown Unknown WBC RBC Hgb Hct MCV MCH MCHC RDW Std Deviation RDW Coeff of Bradford Plt Count MPV Immature Gran % (Auto) Neut % (Auto) Lymph % (Auto) [place] % (Auto) Eos % (Auto) Baso % (Auto) Neut # (Auto) Lymph # (Auto) [place] # (Auto) Eos # (Auto) Baso # (Auto) Immature Gran # (Auto) Sodium Potassium Chloride Carbon Dioxide Anion Gap BUN Creatinine Est Cr Clr Drug Dosing Est GFR ( Amer) Est GFR (Non-Af Amer) BUN/Creatinine Ratio Glucose POC Glucose Uric Acid Calcium Phosphorus Magnesium Total Bilirubin AST ALT Alkaline Phosphatase Total Protein Albumin Globulin Albumin/Globulin Ratio Stl C. diff Tox B Gene Negative Cdiff Gene Stl Yersinia Cult Final Pending Stool Comments Pending Giardia Antigen Pending 11/13/22 11/13/22 11/13/22 04:35 04:35 08:02 WBC 10.40 RBC 3.45 L Hgb 11.6 L Hct 35.3 L MCV 102.3 H MCH 33.6 MCHC 32.9 RDW Std Deviation 67.5 H RDW Coeff of Bradford 18.7 H Plt Count 321 MPV 9.1 L Immature Gran % (Auto) 1.7 Neut % (Auto) 66.5 Lymph % (Auto) 11.7 [place] % (Auto) 10.1 Eos % (Auto) 9.5 Baso % (Auto) 0.5 Neut # (Auto) 6.91 H Lymph # (Auto) 1.22 [place] # (Auto) 1.05 H Eos # (Auto) 0.99 H Baso # (Auto) 0.05 Immature Gran # (Auto) 0.18 Sodium 131 L Potassium 3.8 Chloride 106 Carbon Dioxide 19 L Anion Gap 6 BUN 20 Creatinine 1.59 H D Est Cr Clr Drug Dosing 35.3 Est GFR ( Amer) 38.5 Est GFR (Non-Af Amer) 33.3 BUN/Creatinine Ratio 12.6 Glucose 134 H POC Glucose 126 H Uric Acid 12.8 H Calcium 6.2 L Phosphorus 3.2 Magnesium 2.1 Total Bilirubin 0.4 AST 15 ALT 6 L Alkaline Phosphatase 54 Total Protein 5.0 L Albumin 2.5 L Globulin 2.5 Albumin/Globulin Ratio 1.0 Stl C. diff Tox B Gene Stl Yersinia Cult Final Stool Comments Giardia Antigen PG Care Time/CCT Total # of Minutes Spent Total Time Spent with Patient: Total time spent is greater than 50% in coordination of care (as documented) at patient's floor/unit and/or counseling patient: Coding Level of Care Code 33730 SUB INP/OBS CARE 350MIN Diagnoses Acute kidney injury N17.9 Hypomagnesemia E83.42 Hypocalcemia E83.51 Hyponatremia E87.1 Metabolic acidosis with normal anion gap and bicarbonate losses E87.20 Vitamin D deficiency E55.9 Proximal renal tubular acidosis N25.89 High output ileostomy R19.8; Z93.2
[2022-11-13] MEDS: LOPERAMIDE LIQUID 120 ML BOTTLE PO SCH ×3 (12:29→22:28)
[2022-11-13] MEDS ORDERED: SODIUM CHLORIDE 0.9% 1,000 ML IV SCH (22:00)
[2022-11-13] MEDS: ATORVASTATIN 10 MG TAB PO SCH (22:30)
[2022-11-14 02:57] LABS: 18KDIGG Band NON-REACTIVE; 23KDIGG Band NON-REACTIVE; 23KDIGM Band REACTIVE; 28KDIGG Band NON-REACTIVE; 30KDIGG Band NON-REACTIVE; 39KDIGG Band NON-REACTIVE; 39KDIGM Band NON-REACTIVE; 41KDIGG Band NON-REACTIVE; 41KDIGM Band NON-REACTIVE; 45KDIGG Band NON-REACTIVE; 58KDIGG Band REACTIVE; 66KDIGG Band NON-REACTIVE; 93KDIGG Band NON-REACTIVE; Lyme Antibodies, WB IgG NEGATIVE (NEGATIVE); Lyme Antibodies, WB IgM NEGATIVE (NEGATIVE)
[2022-11-14 05:38] LABS: Albumin Level 2.5 gm/dl (3.4-5.0); BUN Creatinine Ratio 12.1 (10-20); Calcium 6.2 mg/dl (8.6-10.3); Creatinine Clr Calc Pharmacy 27.9 ml/min; Est GFR (African American) 29.4 ml/min; Est GFR (Non-African American) 25.4 ml/min; Phosphorus 3.8 mg/dl (2.5-4.9); Potassium 3.9 mmol/L (3.5-5.1)
--- NOTE | 2022-11-14 06:24 | Communication Note ---
Date of Service: November 14, 2022 Patient had a short run of NSVT on tele overnight, asymptomatic resolved. Patient requested cardiology consult, order placed.
--- NOTE | 2022-11-14 07:16 | Hospitalist Progress Note ---
Date of Service November 13, 2022 Assessment & Plan (1) Metabolic acidosis with normal anion gap and bicarbonate losses: Plan: presented with significant electrolyte abnormalities w/ nonanion gap metabolic acidosis 2nd to high output ileostomy/diuretic use following a fall at home/reported weakness CT head without acute CVA * Fall suspected multifactorial in patient with metastatic breast cancer progressed on Faslodex/Ibrance as well as anastrazole, most recently on Xeloda with worsening neuropathy and peeling of hands/feet, hypomagnesemia/electrolyte derangements (suspected RTA type [address] Yepez's recent note, placed on amiloride), dehydration, OZIEL on presentation. STOPPING her Xeloda as discussed with Dr Montoya prior to admission -- need f/u outpatient Bicarb 15 on presentation with BUN/Cr 31/1.68, Na 129, Mag 1.3, Ca 6.5, ionized ca 0.89. suspected 2nd to diuretic use as well as high output ostomy, renal tubular acidosis suspect in most recent nephrology follow up * Given NaHCO3 IV on admission, electrolyte replacement * Acidosis resolved on repeat labs, bicarb IV stopped Mag IV replacement for mag 1.3 on admission, wnl x past two days with DISCONTINUATION of mag oxide 800mg BID and increasing her mag chloride (slow mag) to BID. ?2nd to PPI use/metformin, poor absorption. -High output ostomy/proximal RTA contributing -Stool testing for PCR/cdiff/fecal occult NEGATIVE Nephrology on consult, appreciate assistance/continued recommendations - PLANNING TO HOLD FURTHER AMILORIDE FOR AM, soft BP/dehydration Started imodium given stool studies negative/PCR, increased to 4mg TID, metamucil daily. Electricity Trader on consult To increase her food consumption, PB/marshmallow sandwich, planning oatmeal/more fiber in AM Reports possibly slight decreased output today, needs continued monitoring Tx FERNANDO/equivocal Lyme as below Labs much improved today and stable but will need continued monitoring Repeat stool studies while on abx Addded IVF on 11/13 as patient appeared dry. (2) High output ileostomy: Plan: as above, attempting to get to slow. mag replacement w/ slow mag LEARNING SUPPORT ASSISTANT discontinued, slow mag increased to BID imodium increased, metamucil daily increase food/fiber intake monitor electrolytes/replacement as needed On 11/13 switched immodium from capsule to liquid due to high ostomy, perhaps not absorbing. Also increased dose to max 16 mg/day. (3) Weakness: Plan: Multifactorial, setting of metastatic breast cancer, skeletal disease, neuropathy from her Xeloda/peeling of hands/feel, metabolic acodosis w/ electrolyte disturbances (hypomag, hypoNa, hypocalcemia), UTI, possible Lyme. Also CANNOT exclude lumbar stenosis as contributing (MRI earlier this year w/ heme/onc noting several disc bulges, likely no surgical correction given blastic/lytic lesions, unable to provide orthotics given ostomy placement) Tx high output ostomy/metabolic acidosis as above, slowing reported afternoon 11/12 Tx UTI, pseudomonas on cx - initially on rocephin for GNB, but switched to Cipro given not cover for pseudomonas --> Planned 500mg BID x 3 days (last dose tonight, 11/12) Equivocal Lyme, continue Rocephin for now but increased to 2gm IV daily. F/u WB testing Neuropathy- Gabapentin renally dosed to 300mg TID (was on QID) -- rec to reduce to TID at dc given CrCl 30s. B12 not deficient (had been getting replacement) - STOPPING Xeloda Of note, patient had unreported fall to ground in ER prior to coming up to the floor on AM 11/09 which was not reported. Contacted nursing/charge, ER to do event report. No head trauma to warrant CT at present however did obtain imaging of right femur/hip, no acute fracture thankfully ECHO w/ RVSP elevated to 40-50mmHg. ?underlying BLAKE. Normal EF. Grade 1 diastolic dysfunction. mild MR, mod TR Consideration for underlying BLAKE, diastolic HF. Attempt overnight pulse ox study for tonight --> consider outpt sleep study, ?diastolic HF in smoker Continue PT/OT, ref to [place] [facility] [facility] made Sunday per Radha from [facility], f/u sunday for referral (4) Urinary tract infection: Plan: as above, pseudomonas on urine cx, cipro for treatment. planning 3 days given "asymptomatic" (last dose today), blood cultures remaining NGTD from admission (5) Acute kidney injury: Plan: Dehydrated on admission, BUN/Cr 31/1.68. PRerenal, increased ostomy output IVF provided, lasix 20mg IV on 11/09 & 11/10 for overload (Dr gaffney had stopped her amiloride as ordered on admission) No further lasix, amiloride resumed by Dr Yepez 11/11 Renal dose meds/avoid nephrotoxins as able (Gabapentin reduced to 300mg TID, taking QID at home) BUN/Cr 19/.26 -- holding amiloride for AM per discussion w/ Dr Yepez (6) Hypomagnesemia: Plan: as above, 2nd to high output ileostomy/metformin use suspected, as well as PPI use, poor absorption. 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 TSH wnl Lasix as outlined, amiloride resumed for today as above Na improved 134 on labs and will monitor of note, current smoker as well in setting of malignancy Monitor BMP in AM (9) Diastolic CHF: Plan: follows with Dr Barkley - appeared DRY on exam on admission, recently started amiloride as well per nephrology and was on daily lasix 40mg Continue amiloride unless otherwise directed by nephrology (had been dc on 11/09 as above, resumed for 11/11) --> HOLDING Amiloride for am Would NOT resume her lasix Losartan remains on hold for borderline BP/Cr elevation (improving) Coreg continued, hold parameters to give unless SBP <90 or HR <60 ECHO w/ LV systolic function normal. Grade I diastolic dysfunction. RV mildly dilated. RVSP is normal. Mild MR, moderate TR. RVSP elevated to 40-50mmhg ?underlying sleep apnea. Denied snoring/apneic periods but not ruled out Will check overnight pulse ox study Monitor daily weights (down compared to prior, poor PO intake/increased ostomy output) Monitor I&Os (10) Malignant neoplasm of breast metastatic to bone: Plan: discussed w/ heme/onc during inpatient encounter -- to STOP her xeloda, causing worsening neuropathy, peeling of hands/feet (improving since stopping this) can call Dr Montoya if needed, did see in ER planning to switch to Enhertu or fulvestrant/apelisib or elacestrant/apelisib in follow up will need f/u treatment options/sooner f/u at [facility] Still current smoker, 1/2ppd. Nicotine patch ordered. 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 CT head negative. Tx as outlined above, continued PT/OT while inpatient, likely rehab at [facility] if unable to safelty dc home (16) Acute conjunctivitis of both eyes: Plan: continue polymixin for now , improving on exam (although patient wasn't sure) --> continued and looks better this afternoon utilize warm compress, ?blocked gland Montior Plan continued inpatient stay Nephrology following, appreciate recs/assistance amiloride on hold for AM, continue imodium/metamucil and attempting to get ostomy output to decrease. Cipro to be completed today for pseudomonas UTI ("asymptomatic"), Ceftriaxone continued for equivocal Lyme testing and will need f/u on WB testing Mood/cognition stable at present (although endorsed some depression yesterday about continued inpatient stay/ideally wanting to go home but knows too weak in current state) Needs sooner f/u with hematology/oncology at discharge to discuss switching chemotherapy regimen moving forward. Xeloda discontinued as above Continue PT/OT while inpatient, ref to [place] [facility] [facility] made on Sunday Admission and Anticipated Discharge Date Admission Date: November 08, 2022 Subjective Patient is resting comfortably. Family at bedside. Review of Systems Review of Systems: All systems reviewed & are unremarkable except as noted in HPI & below Physical Exam Physical Exam: General: chronically ill appearing female resting in bed Resp: diminished in the bases, CV: RRR, No murmurs GI:+BS throughout, ostomy connected to espana bag with light brown liquid/semi- formed stool in bag surrounding erythema of colostomy almost completely resolved : purewick draining concentrated urine intertrigo to groin bilaterally improving, desenex in place Psych: alert to person/place, intermittent confusion to time of day, pleasant and cooperative with exam but fatigued appearing (slightly improved) Results & Data Results & Data Vital Signs (Past 12 Hours) Vital Signs Temp Pulse Pulse Resp BP Pulse Ox O2 Del Method 11/14/22 03:26 36.8 C 95 H 16 122/81 94 Nasal Cannula 11/13/22 23:46 95 H 11/13/22 23:12 36.8 C 94 H 16 104/71 93 Nasal Cannula 11/13/22 21:05 94 H 100/68 11/13/22 19:49 36.8 C 98 H 16 88/61 L 93 Nasal Cannula O2 Flow Rate 11/14/22 03:26 3 11/13/22 23:46 11/13/22 23:12 3 11/13/22 21:05 11/13/22 19:49 3 PG Care Time/CCT Total # of Minutes Spent Total Time Spent with Patient: Total time spent is greater than 50% in coordination of care (as documented) at patient's floor/unit and/or counseling patient: Coding Level of Care Code 53529 SUB INP/OBS CARE 2/35MIN Diagnoses Metabolic acidosis with normal anion gap and bicarbonate losses E87.20 High output ileostomy R19.8; Z93.2 Weakness R53.1 Urinary tract infection N39.0 Hematuria presence: without hematuria Urinary tract infection type: site unspecified Acute kidney injury N17.9 Hypomagnesemia E83.42 Hypocalcemia E83.51 Hyponatremia E87.1 Diastolic CHF I50.30 Malignant neoplasm of breast metastatic to bone C50.919; C79.51 Peeling skin R23.4 Vitamin D deficiency E55.9 Intertrigo L30.4 Proximal renal tubular acidosis N25.89 Fall W19.XXXA Acute conjunctivitis of both eyes H10.33 (4) Urinary tract infection Hematuria presence: without hematuria Urinary tract infection type: site unspecified Qualified Code(s): N39.0 - Urinary tract infection, site not specified
[2022-11-14 07:57] LABS: Basophils # (auto) 0.09 K/uL (0.00-0.20); Basophils % (auto) 0.8 %; Eosinophils # (auto) 0.42 K/uL (0.00-0.50); Eosinophils % (auto) 3.7 %; Hematocrit (blood only) 37.7 % (37.0-47.0); Hemoglobin 12.4 g/dl (12.0-16.0); Immature Granulocytes # (auto) 0.37 K/uL (0.01-0.20); Immature Granulocytes % (auto) 3.2 %; Lymphocytes # (auto) 1.09 K/uL (1.20-3.40); Lymphocytes % (auto) 9.5 %; Mean Corpuscular Hemoglobin 33.6 pg (25.0-34.0); Mean Corpuscular Hgb Conc 32.9 g/dL (32.0-36.0); Mean Corpuscular Volume 102.2 fL (80.0-100.0); Mean Platelet Volume 8.8 fL (9.4-12.4); Monocytes # (auto) 1.38 K/uL (0.11-0.59); Neutrophils # (auto) 8.15 K/uL (1.40-6.50); Neutrophils % (auto) 70.8 %; Platelet Count 344 K/uL (130-400); RDW Coefficient of Variation 18.9 % (11.5-14.5); Red Blood Count 3.69 M/uL (4.20-5.40)
[2022-11-14] MEDS ORDERED: STAT IV STA ×2 (09:03→11:52)
[2022-11-14] MEDS: cefTRIAXone SODIUM 2,000 MG in DEXTROSE 5% 50 ML IV SCH (09:45)
[2022-11-14] MEDS: oxyCODONE HCL IR 5 MG TAB (IMMEDIATE RELEASE) PO PRN (09:53)
[2022-11-14] MEDS: POTASSIUM CHLORIDE CRTAB 20 MEQ TABCR PO SCH (09:53)
[2022-11-14] MEDS: INSULIN ASPART PER UNIT CHARGE SC SCH ×4 (09:53→20:42)
[2022-11-14] MEDS: PARoxetine HCL 20 MG TAB PO SCH (09:54)
[2022-11-14] MEDS: APIXABAN 5 MG TABLET PO SCH ×2 (09:54→20:46)
[2022-11-14] MEDS: TRIMETHOPRIM/POLYMYXIN B OP SCH (09:54)
[2022-11-14] MEDS: GABAPENTIN 300 MG CAP PO SCH ×3 (09:55→20:46)
[2022-11-14] MEDS: carvediloL 3.125 MG TAB PO SCH ×2 (09:55→20:45)
[2022-11-14] MEDS: NICOTINE 14 MG/24 HR PATCH TD SCH (09:56)
[2022-11-14] MEDS: guaiFENesin 600 MG TABCR PO SCH ×2 (09:56→20:46)
[2022-11-14] MEDS: PANTOprazole 40 MG TAB PO SCH (09:56)
[2022-11-14] MEDS: CALCIUM 600MG + VIT D 400 IU TAB PO SCH (09:57)
[2022-11-14] MEDS: CALCITRIOL 0.25 MCG CAPSULE PO SCH (09:57)
[2022-11-14] MEDS: PSYLLIUM or GUAR GUM FIBER POWDER PACKET PO SCH (09:58)
[2022-11-14] MEDS: MICONAZOLE NITRATE POWDER 85 GM EXT SCH ×2 (09:58→20:45)
[2022-11-14] MEDS: LOPERAMIDE LIQUID 120 ML BOTTLE PO SCH ×6 (09:58→20:44)
--- NOTE | 2022-11-14 10:33 | Nephrology Progress Note ---
Date of Service November 14, 2022 Assessment & Plan (1) Acute kidney injury: Plan: Prerenal due to increased ostomy output. Creatinine has returned to baseline. Volume status acceptable. Encourage even fluid balance. Document strict I/O's. Medications appropriate for kidney function. Gabapentin has been dose adjusted accordingly. N (2) Hypomagnesemia: Plan: Chronic and multifactorial. Poor absorption related to PPI and metformin. 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 PO magnesium is being held due to increased ostomy output. Hold amiloride pending improvement in volume status. Monitor daily. (3) Hypocalcemia: Plan: Continue calcitriol 1 mcg daily. Ergocalciferol 73844 units twice weekly. Calc ium 600 mg + D3. Calcium gluconate 2 grams IV provided this AM. Corrected calcium remains slightly low. (4) Hyponatremia: Plan: Encourage oral PO solute intake. Recheck sNa tomorrow AM. (5) Metabolic acidosis with normal anion gap and bicarbonate losses: Plan: Due to ostomy output and pRTA. Oral NaHCO3 1300 mg BID. (6) Vitamin D deficiency: Plan: Ergocalciferol twice weekly. Calcitriol 1 mcg daily. (7) Proximal renal tubular acidosis: Plan: Hold amiloride. Medication will now be held due to volume status. (8) High output ileostomy: Plan: IV albumin ordered this AM to help with persistent hypotension and orthostasis. Admission and Anticipated Discharge Date Admission Date: November 08, 2022 Subjective Episode of Vfib noted on tele overnight. Yamel denies any symptoms of this. She reports persistent weakness. Yamel expressed frustration regarding her continued need for hospitalization. She would like to return home. She remains orthostatic. She reports feeling very tired despite sleeping most of the day. She denies dyspnea. No fevers or chills. Remains on O2 3 L via nasal cannula. Continued liquid ostomy output. Review of Systems Review of Systems: All systems reviewed & are unremarkable except as noted in HPI & below Physical Exam Constitutional: + thin and + frail appearing; no acute distress Eyes: + anicteric sclerae; no corneal abnormality ENMT: Mouth: + dry oral mucous membranes; no oral mucosal abnormality Neck: normal visual inspection and trachea midline Respiratory: normal respiratory effort Auscultation: lungs clear to auscultation bilaterally Cardiovascular: Rate/Rhythm: regular rate Heart Sounds: normal S1 and normal S2 Extremities: no edema Musculoskeletal: Extremities: no cyanosis and no clubbing Skin: + turgor decreased and + ecchymosis; no jaundice Neurologic: Motor/Sensory: no tremor and no asterixis Psychiatric: Orientation: alert and oriented x 3 Results & Data Vital Signs (Past 12 Hours) Vital Signs Temp Pulse Pulse Resp BP Pulse Ox O2 Del Method 11/14/22 07:50 36.3 C L 95 H 16 128/83 94 Room Air 11/14/22 03:26 36.8 C 95 H 16 122/81 94 Nasal Cannula 11/13/22 23:46 95 H 11/13/22 23:12 36.8 C 94 H 16 104/71 93 Nasal Cannula O2 Flow Rate 11/14/22 07:50 11/14/22 03:26 3 11/13/22 23:46 11/13/22 23:12 3 Laboratory Results Laboratory Results - last 24 hr 11/10/22 11/13/22 11/13/22 08:06 12:09 17:06 WBC RBC Hgb Hct MCV MCH MCHC RDW Std Deviation RDW Coeff of Bradford Plt Count MPV Immature Gran % (Auto) Neut % (Auto) Lymph % (Auto) [place] % (Auto) Eos % (Auto) Baso % (Auto) Neut # (Auto) Lymph # (Auto) [place] # (Auto) Eos # (Auto) Baso # (Auto) Immature Gran # (Auto) Sodium Potassium Chloride Carbon Dioxide Anion Gap BUN Creatinine Est Cr Clr Drug Dosing Est GFR ( Amer) Est GFR (Non-Af Amer) BUN/Creatinine Ratio Glucose POC Glucose 181 H 148 H Calcium Phosphorus Magnesium C-Reactive Protein Albumin Lyme IgG (Western Blot) NEGATIVE Lyme IgG 18 kDa Band NON-REACTIVE Lyme IgG 23 kDa Band NON-REACTIVE Lyme IgG 28 kDa Band NON-REACTIVE Lyme IgG 30 kDa Band NON-REACTIVE Lyme IgG 39 kDa Band NON-REACTIVE Lyme IgG 41 kDa Band NON-REACTIVE Lyme IgG 45 kDa Band NON-REACTIVE Lyme IgG 58 kDa Band REACTIVE A Lyme IgG 66 kDa Band NON-REACTIVE Lyme IgG 93 kDa Band NON-REACTIVE Lyme IgM Ab (WB) NEGATIVE Lyme IgM 23 kDa Band REACTIVE A Lyme IgM 39 kDa Band NON-REACTIVE Lyme IgM 41 kDa Band NON-REACTIVE 11/13/22 11/14/22 11/14/22 20:24 04:48 07:36 WBC 11.50 H RBC 3.69 L Hgb 12.4 Hct 37.7 MCV 102.2 H MCH 33.6 MCHC 32.9 RDW Std Deviation 69.0 H RDW Coeff of Bradford 18.9 H Plt Count 344 MPV 8.8 L Immature Gran % (Auto) 3.2 Neut % (Auto) 70.8 Lymph % (Auto) 9.5 [place] % (Auto) 12.0 Eos % (Auto) 3.7 Baso % (Auto) 0.8 Neut # (Auto) 8.15 H Lymph # (Auto) 1.09 L [place] # (Auto) 1.38 H Eos # (Auto) 0.42 Baso # (Auto) 0.09 Immature Gran # (Auto) 0.37 H Sodium 130 L Potassium 3.9 Chloride 104 Carbon Dioxide 17 L Anion Gap 9 BUN 24 H Creatinine 1.99 H D Est Cr Clr Drug Dosing 27.9 Est GFR ( Amer) 29.4 Est GFR (Non-Af Amer) 25.4 BUN/Creatinine Ratio 12.1 Glucose 158 H POC Glucose 177 H Calcium 6.2 L Phosphorus 3.8 Magnesium 2.0 C-Reactive Protein Albumin 2.5 L Lyme IgG (Western Blot) Lyme IgG 18 kDa Band Lyme IgG 23 kDa Band Lyme IgG 28 kDa Band Lyme IgG 30 kDa Band Lyme IgG 39 kDa Band Lyme IgG 41 kDa Band Lyme IgG 45 kDa Band Lyme IgG 58 kDa Band Lyme IgG 66 kDa Band Lyme IgG 93 kDa Band Lyme IgM Ab (WB) Lyme IgM 23 kDa Band Lyme IgM 39 kDa Band Lyme IgM 41 kDa Band 11/14/22 11/14/22 07:36 09:50 WBC RBC Hgb Hct MCV MCH MCHC RDW Std Deviation RDW Coeff of Bradford Plt Count MPV Immature Gran % (Auto) Neut % (Auto) Lymph % (Auto) [place] % (Auto) Eos % (Auto) Baso % (Auto) Neut # (Auto) Lymph # (Auto) [place] # (Auto) Eos # (Auto) Baso # (Auto) Immature Gran # (Auto) Sodium Potassium Chloride Carbon Dioxide Anion Gap BUN Creatinine Est Cr Clr Drug Dosing Est GFR ( Amer) Est GFR (Non-Af Amer) BUN/Creatinine Ratio Glucose POC Glucose 145 H Calcium Phosphorus Magnesium C-Reactive Protein 3.34 H Albumin Lyme IgG (Western Blot) Lyme IgG 18 kDa Band Lyme IgG 23 kDa Band Lyme IgG 28 kDa Band Lyme IgG 30 kDa Band Lyme IgG 39 kDa Band Lyme IgG 41 kDa Band Lyme IgG 45 kDa Band Lyme IgG 58 kDa Band Lyme IgG 66 kDa Band Lyme IgG 93 kDa Band Lyme IgM Ab (WB) Lyme IgM 23 kDa Band Lyme IgM 39 kDa Band Lyme IgM 41 kDa Band PG Care Time/CCT Total # of Minutes Spent Total Time Spent with Patient: Total time spent is greater than 50% in coordination of care (as documented) at patient's floor/unit and/or counseling patient: Coding Level of Care Code 66830 SUB INP/OBS CARE 3/50MIN Diagnoses Acute kidney injury N17.9 Hypomagnesemia E83.42 Hypocalcemia E83.51 Hyponatremia E87.1 Metabolic acidosis with normal anion gap and bicarbonate losses E87.20 Vitamin D deficiency E55.9 Proximal renal tubular acidosis N25.89 High output ileostomy R19.8; Z93.2
[2022-11-14] MEDS: SODIUM BICARBONATE 650 MG TAB PO SCH ×2 (11:05→20:46)
[2022-11-14] MEDS: CALCIUM GLUCONATE 10% 1,000 MG in SODIUM CHLOR 0.9% MINI-B 50 ML IV SCH ×2 (11:06→12:01)
--- NOTE | 2022-11-14 11:38 | Hospitalist Progress Note ---
Date of Service November 14, 2022 Assessment & Plan (1) Palmar-plantar erythrodysesthesia: Plan: all fingers affected and nearly all the toes uncertain if the skin findings are acral erythema / palmar-plantar erythrodysesthesia vs small vessel/cutaneous vasculitis vs other if former Xeloda likely to blame - Xeloda has been implicated in the dermatology literature to cause acral erythema Xeloda has been stopped will check with rheumatology and/or dermatology about these findings fortunately the pain she had been having in her hands/feet has improved (2) Metabolic acidosis with normal anion gap and bicarbonate losses: Plan: 2nd to high output losses via colostomy lactate is negative no evidence of DKA remains on PO bicarbonate tabs will place on bicarbonate infusion - 1/2 NS with 75meq bicarb - run at 75cc/hr rechecked pH later in the day - did improve with above measures plan to repeat pH and BMP in am the acidosis may be a large contributor to her lethargy, etc (3) Lethargy: Plan: suspect multifactorial causes for such including her acidosis supportive care r/o ongoing UTI - urine cx pending CT head - r/o brain mets, ICH, etc check ammonia level check VBG to r/o CO2 retention (4) Acute kidney injury: Plan: had mild OZIEL at time of admission this improved with Cr of 1.2, then OZIEL recurred again today -- Cr now 1.99 pre-renal in etiology - looks very volume depleted and has had low BPs off/on during the stay hyaline casts seen on today's u/a with micro appreciate nephro consultation and recs albumin IV x 1 ordered by nephro this will be followed with IVF in the form of bicarbonate infusion repeat Cr this evening DID improve recheck BMP in am placed espana to monitor UOP (5) (HFpEF) heart failure with preserved ejection fraction: Plan: echo this admission with normal EF no evidence of volume overload at this time (6) NSVT (nonsustained ventricular tachycardia): Plan: 13 beat run of NSVT last pm no symptoms fortunately EF is preserved likely due to electrolyte issues keep mag near 2, keep K near 4 or higher, and keep calcium as close to normal as possible cont low dose coreg (7) Hyponatremia: Plan: 2nd to OZIEL & volume depletion should improve with IV fluids serial BMPs (8) Acute conjunctivitis of both eyes: Plan: no response to polymyxin/TMP stop the above switch to cipro eye drops (9) Hypomagnesemia: Plan: mag levels x 4 days wnl was on high-dose PO mag supplementation which could have been contributing to severe colostomy output PO mag placed on hold (10) Peripheral neuropathy: Plan: 2nd to prior chemo for breast ca? cont gabapentin if lethargy continues consider dose reduction in light of renal dysfunction (11) Malignant neoplasm of breast metastatic to bone: Plan: follows with Dr Montoya at [facility] Xeloda stopped recently due to concerns for #1 above most recent PET scan 08/2022 with skeletal mets but no solid-organ met CT a/p without intra-abdominal metastatic disease (12) Hypotension: Plan: likely multifactorial but volume depletion likely to blame as largest culprit hydrate follow BPs carefully (13) Hypocalcemia: Plan: total calcium level 6.7 this evening corrected calcium is close to 8 appreciate nephrology assistance with this s/p IV Ca replacement + calcitriol + ca/vit D supplementation (14) GERD (gastroesophageal reflux disease): Plan: PPI (15) Hyperlipidemia: Plan: remains on lipitor (16) Depression: Plan: cont paxil (17) CAD (coronary artery disease): Plan: per records minimal nonobstructive CAD on prior heart cath (18) Proximal renal tubular acidosis: Plan: contributing to #2 above appreciate nephrology assistance (19) Colostomy in place: Plan: created 2017 due to complications from diverticulitis significant high output of stool recently appears noninfectious - stool biofire negative; a repeat cdiff test also negative has improved with immodium QID + fiber output now 1500 or so/24 hours if needed could trial bile acid sequestrant (20) DM type 2 (diabetes mellitus, type 2): Plan: resolved last a1c <6% would not resume metformin in light of renal dysfunction, failure to thrive, etc (21) History of DVT (deep vein thrombosis): Plan: remains on Eliquis 5mg BID (22) Severe protein-calorie malnutrition: Plan: near 15kg weight loss since June 2022 2nd to metastatic breast ca albumin low in mid 2's very poor appetite consider marinol or similar but defer for now (23) Pseudomonas urinary tract infection: Plan: early in admission - s/p course of cipro for such with ongoing lethargy, mildly elevated procalcitonin, etc I repeated u/a and u rine cx today await culture for test of cure (24) Tobacco abuse: Plan: cont nicoderm patch Plan care d/w Dr Yepez from nephrology care d/w Yamel's sister Tg 2x's by phone today very complex care coordination remains quite ill total care time activities today about 90 minutes including extensive chart review, multiple conversations as above, complex care coordination & interpretation of data, etc if she continues to do poorly may need to consider palliative care consultation Admission and Anticipated Discharge Date Admission Date: November 08, 2022 Subjective overnight had 13 beat run of NSVT was in bed, no symptoms from such otherwise NSR on tele during the visit Ms Ojeda was lying very still in bed she responded quickly to her name being called, but kept her eyes closed the entire visit she was able to talk easily and answer all questions appropriately she was able to recall historical details of the last 1-2 days she was asking appropriate questions main complaint is that of extreme fatigue despite sleeping long periods of time denies any dyspnea or orthopnea denies pain in any location - no chest pain or abd pain denies headache no appetite - has not eaten in 3-4 days ostomy bag is hooked up to gravity espana bag - liquid stool still present she has never had high output stool from her ostomy to her knowledge continues with crusting of both eyes - not getting any better despite eye drops patient reports that when her fingers x 10 and toes developed blistering a few weeks ago the process was very painful the pain is better in her fingers, but she still has a hard time gripping things Xeloda for her breast ca was stopped about a week ago when this happened (concern that the Xeloda caused the finger/toe issue) Review of Systems Review of Systems: gen - no fevers or chills; feels poorly, very weak, no appetite cv - no chest pain, no orthopnea, no PND pulm - despite O2 requirement no cough or dyspnea at rest GI - no nausea/emesis; diarrhea continues - no dysuria; making little urine musculo - denies joint pains Physical Exam Physical Exam: gen - looks unwell, toxic, lying still in bed with eyes closed but does answer all questions; no acute distress eyes - matting/crusting of lids and conjunctiva b/l; PERRL mouth - MM very dry; no thrush neck - no JVD heart - RRR, s1 s2, no murmur lungs - CTA b/l, decreased BS bases abd - soft NT ND BS+; ostomy left side of abdomen, stoma pink and clean; green stool in collection bag ext - no edema, pulses b/l feet and b/l wrists 1+ skin - all fingertips x 10 and all toes x 10 (especially great hallux b/l) with peeling of skin; erythematous tips of fingers/toes; cap refill >2 seconds of tips of fingers/toes; cool to touch vasculitis? acral erythema? vascular - pulses feet 1+ b/l; radial/ulnar pulses 1+ b/l Results & Data Results & Data Vital Signs (Past 12 Hours) Vital Signs Temp Pulse Pulse Resp BP Pulse Ox O2 Del Method 11/14/22 07:50 36.3 C L 95 H 16 128/83 94 Room Air 11/14/22 03:26 36.8 C 95 H 16 122/81 94 Nasal Cannula 11/13/22 23:46 95 H O2 Flow Rate 11/14/22 07:50 11/14/22 03:26 3 11/13/22 23:46 Laboratory Results Laboratory Results - last 24 hr 11/10/22 11/13/22 11/13/22 08:06 12:09 17:06 WBC RBC Hgb Hct MCV MCH MCHC RDW Std Deviation RDW Coeff of Bradford Plt Count MPV Immature Gran % (Auto) Neut % (Auto) Lymph % (Auto) [place] % (Auto) Eos % (Auto) Baso % (Auto) Neut # (Auto) Lymph # (Auto) [place] # (Auto) Eos # (Auto) Baso # (Auto) Immature Gran # (Auto) Sodium Potassium Chloride Carbon Dioxide Anion Gap BUN Creatinine Est Cr Clr Drug Dosing Est GFR ( Amer) Est GFR (Non-Af Amer) BUN/Creatinine Ratio Glucose POC Glucose 181 H 148 H Calcium Phosphorus Magnesium C-Reactive Protein Albumin Lyme IgG (Western Blot) NEGATIVE Lyme IgG 18 kDa Band NON-REACTIVE Lyme IgG 23 kDa Band NON-REACTIVE Lyme IgG 28 kDa Band NON-REACTIVE Lyme IgG 30 kDa Band NON-REACTIVE Lyme IgG 39 kDa Band NON-REACTIVE Lyme IgG 41 kDa Band NON-REACTIVE Lyme IgG 45 kDa Band NON-REACTIVE Lyme IgG 58 kDa Band REACTIVE A Lyme IgG 66 kDa Band NON-REACTIVE Lyme IgG 93 kDa Band NON-REACTIVE Lyme IgM Ab (WB) NEGATIVE Lyme IgM 23 kDa Band REACTIVE A Lyme IgM 39 kDa Band NON-REACTIVE Lyme IgM 41 kDa Band NON-REACTIVE 11/13/22 11/14/22 11/14/22 20:24 04:48 07:36 WBC 11.50 H RBC 3.69 L Hgb 12.4 Hct 37.7 MCV 102.2 H MCH 33.6 MCHC 32.9 RDW Std Deviation 69.0 H RDW Coeff of Bradford 18.9 H Plt Count 344 MPV 8.8 L Immature Gran % (Auto) 3.2 Neut % (Auto) 70.8 Lymph % (Auto) 9.5 [place] % (Auto) 12.0 Eos % (Auto) 3.7 Baso % (Auto) 0.8 Neut # (Auto) 8.15 H Lymph # (Auto) 1.09 L [place] # (Auto) 1.38 H Eos # (Auto) 0.42 Baso # (Auto) 0.09 Immature Gran # (Auto) 0.37 H Sodium 130 L Potassium 3.9 Chloride 104 Carbon Dioxide 17 L Anion Gap 9 BUN 24 H Creatinine 1.99 H D Est Cr Clr Drug Dosing 27.9 Est GFR ( Amer) 29.4 Est GFR (Non-Af Amer) 25.4 BUN/Creatinine Ratio 12.1 Glucose 158 H POC Glucose 177 H Calcium 6.2 L Phosphorus 3.8 Magnesium 2.0 C-Reactive Protein Albumin 2.5 L Lyme IgG (Western Blot) Lyme IgG 18 kDa Band Lyme IgG 23 kDa Band Lyme IgG 28 kDa Band Lyme IgG 30 kDa Band Lyme IgG 39 kDa Band Lyme IgG 41 kDa Band Lyme IgG 45 kDa Band Lyme IgG 58 kDa Band Lyme IgG 66 kDa Band Lyme IgG 93 kDa Band Lyme IgM Ab (WB) Lyme IgM 23 kDa Band Lyme IgM 39 kDa Band Lyme IgM 41 kDa Band 11/14/22 11/14/22 07:36 09:50 WBC RBC Hgb Hct MCV MCH MCHC RDW Std Deviation RDW Coeff of Bradford Plt Count MPV Immature Gran % (Auto) Neut % (Auto) Lymph % (Auto) [place] % (Auto) Eos % (Auto) Baso % (Auto) Neut # (Auto) Lymph # (Auto) [place] # (Auto) Eos # (Auto) Baso # (Auto) Immature Gran # (Auto) Sodium Potassium Chloride Carbon Dioxide Anion Gap BUN Creatinine Est Cr Clr Drug Dosing Est GFR ( Amer) Est GFR (Non-Af Amer) BUN/Creatinine Ratio Glucose POC Glucose 145 H Calcium Phosphorus Magnesium C-Reactive Protein 3.34 H Albumin Lyme IgG (Western Blot) Lyme IgG 18 kDa Band Lyme IgG 23 kDa Band Lyme IgG 28 kDa Band Lyme IgG 30 kDa Band Lyme IgG 39 kDa Band Lyme IgG 41 kDa Band Lyme IgG 45 kDa Band Lyme IgG 58 kDa Band Lyme IgG 66 kDa Band Lyme IgG 93 kDa Band Lyme IgM Ab (WB) Lyme IgM 23 kDa Band Lyme IgM 39 kDa Band Lyme IgM 41 kDa Band PG Care Time/CCT Total # of Minutes Spent Total Time Spent with Patient: Total time spent is greater than 50% in coordination of care (as documented) at patient's floor/unit and/or counseling patient: Prolonged Care Time Prolonged Care Time: Yes Total Prolonged Care Time: 90 Coding Level of Care Code 97624 SUB INP/OBS CARE 3/50MIN (25 - SIGNIFICANT, SEPARATELY IDENTIFIABLE ) Diagnoses Palmar-plantar erythrodysesthesia L27.1 Metabolic acidosis with normal anion gap and bicarbonate losses E87.20 Lethargy R53.83 Acute kidney injury N17.9 (HFpEF) heart failure with preserved ejection fraction I50.30 NSVT (nonsustained ventricular tachycardia) I47.29 Hyponatremia E87.1 Acute conjunctivitis of both eyes H10.33 Hypomagnesemia E83.42 Peripheral neuropathy G62.9 Malignant neoplasm of breast metastatic to bone C50.919; C79.51 Hypotension I95.9 Hypocalcemia E83.51 GERD (gastroesophageal reflux disease) K21.9 Hyperlipidemia E78.5 Depression F32.9 CAD (coronary artery disease) I25.10 Proximal renal tubular acidosis N25.[address] Z93.3 DM type 2 (diabetes mellitus, type 2) E11.9 History of DVT (deep vein thrombosis) Z86.718 Severe protein-calorie malnutrition E43 Pseudomonas urinary tract infection N39.0; B96.5 Tobacco abuse Z72.0 Additional Codes Prolonged Care Time - Prolonged Care Time: Yes ([id number])
[2022-11-14] MEDS: ALBUMIN 25% 25 GM/100 ML VIAL IV SCH ×2 (12:35→15:14)
[2022-11-14 13:37] LABS: Base Excess VBG -8.7 mEq/L; HCO3 VBG 18 mmol/L; PCO2 VBG 40 mmHg (38-50); PO2 VBG 65 mmHg; pH VBG 7.26 (7.36-7.41)
--- NOTE | 2022-11-14 13:49 | CT Scan Report ---
CT head/brain wo con CLINICAL HISTORY: 66 years-old Female with stage 4 breast ca; lethargy; eval mets, ICH, etc. Acutely altered mental status TECHNIQUE: Multiple axial CT images of the head were obtained without contrast. A dose lowering tech nique was utilized adhering to the principles of ALARA. COMPARISON: Brain MRI 06/22/2022, 05/06/2018 FINDINGS: No acute intracranial hemorrhage, midline shift, intracranial mass, hydrocephalus, territorial ischem ia or abnormal extra-axial collection. Chronic right frontal lobe periventricular lacunar infarct aga in noted. Involutional changes with probable mild chronic microvascular ischemic disease. Osteoblastic skeletal metastasis again noted. No acute pathologic fracture is seen. Complete opacifi cation of left sphenoid sinus is new from prior. IMPRESSION: 1. No acute intracranial abnormality. 2. Osteoblastic skeletal metastasis redemonstrated. ACT 112: Negative or not required by law. The above report was generated using voice recognition software. It may contain grammatical, syntax o r spelling errors. Electronically signed by: Dayne Gordon M.D. 11/14/2022 1:47 PM
--- NOTE | 2022-11-14 13:59 | Cardiology Consultation ---
Date of Consultation November 14, 2022 Assessment & Plan (1) Ventricular tachycardia: -nonsustained, 13 beats in length, asymptomatic. -likely secondary to her acute illness and electrolyte abnormalities. -normal left ventricular systolic function on echocardiogram. -continue carvedilol. -no further cardiac workup necessary. (2) (HFpEF) heart failure with preserved ejection fraction: -well compensated at this time. (3) CAD (coronary artery disease): -minimal disease on catheterization, July 2016. History of Present Illness Attending Physician: Perez Orellana MD History of Present Illness Mrs. Ojeda is a 66-year-old female admitted on November 08 with weakness, electrolyte abnormalities, high output from her ostomy, and after a mechanical fall. The patient had a 13 beat run of ventricular tachycardia last evening, therefore, this consultation was ordered. Of note, the patient is well known to me from the outpatient setting. Unfortunately, the patient has been in poor health lately and is undergoing treatment for her metastatic breast carcinoma. She presented with the above listed complaints and has been undergoing correction of her electrolyte abnormalities and treatment for her high output from her ostomy. She had a 13 beat run of ventricular tachycardia last evening at approximately 8:30. This was not symptomatic. She had an echocardiogram last week which noted normal left ventricular systolic function with ejection fraction of 65-70%. The patient does carry a history of a nonischemic cardiomyopathy which has resolved. It was felt that this was secondary to either her chemotherapy or frequent PVCs. She does follow daily weights at home and takes an additional dose of her Lasix when necessary for weight gain. She did undergo cardiac catheterization in July 2016 which revealed luminal irregularities in the LAD and a 20% proximal RCA stenosis. Currently, patient is resting comfortably in bed, but complaining of fatigue. Past medical and surgical history 1. Coronary artery disease-minimal, July 2016 2. Nonischemic cardiomyopathy-resolved 3. Mild mitral regurgitation 4. Mild tricuspid regurgitation 5. Frequent PVCs 6. Hypertension 7. Hypercholesterolemia 8. Diabetes mellitus 9. GERD 10. RTA type 2 11. Hypomagnesemia 12. Metastatic breast carcinoma 13. Recurrent DVT 14. Acute diverticulitis with pericolic abscess-June 2016 15. Idiopathic urticaria 16. Left mastectomy-1994 17. Right mastectomy -2004 18. L5-S1 laminectomy 19. L4-L5 disc herniation 20. Colostomy-February 2017 21. Rectal stump closure-February 2017 22. ORIF left humerus-March 2020. Hysterectomy 24. 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 Allergies Allergy/AdvReac Type Severity Reaction Status Date / Time aspirin Allergy Mild hives Verified 11/08/22 20:27 ibuprofen Allergy Mild hives Verified 11/08/22 20:27 tamoxifen Allergy Unknown temporary Verified 11/08/22 20:27 left eye vision loss Home Medications Medication Instructions Recorded Confirmed Type acetaminophen 500 mg tablet 500 mg PO Q6H PRN Pain 04/13/20 11/08/22 History (Tylenol Extra Strength) paroxetine HCl 30 mg tablet (Paxil) 30 mg PO QAM #90 tabs 09/30/21 11/08/22 Rx furosemide 40 mg tablet 40 mg PO QAM #90 tabs 10/11/21 11/08/22 Rx fulvestrant 250 mg/5 mL 500 mg (10 mL) IM ONCE 3 doses #10 03/14/22 11/08/22 Rx intramuscular syringe mL apixaban 5 mg tablet (Eliquis) 5 mg PO BID DVT #180 tabs 05/01/22 11/08/22 Rx Wheelchair (Manual) #1 ea 07/14/22 11/08/22 Rx losartan 25 mg tablet 12.5 mg PO QPM #15 tabs 07/21/22 11/08/22 Rx metformin 1,000 mg tablet 1,000 mg PO BID #180 tabs 07/24/22 11/08/22 Rx carvedilol 3.125 mg tablet 3.125 mg PO BID #180 tabs 08/18/22 11/08/22 Rx gabapentin 300 mg capsule 300 mg PO .COMPLEX #360 caps 09/04/22 11/08/22 Rx magnesium oxide 400 mg (241.3 mg 800 mg PO BID #90 tabs 10/16/22 11/08/22 Rx magnesium) tablet atorvastatin 10 mg tablet 10 mg PO QPM #90 tabs 10/23/22 11/08/22 Rx ergocalciferol (vitamin D2) 1,250 1,250 mcg PO .COMPLEX #8 caps 10/25/22 11/08/22 Rx mcg (50,000 unit) capsule omeprazole 20 mg capsule,delayed 20 mg PO QAM #90 caps 10/30/22 11/08/22 Rx release potassium chloride 20 mEq 20 meq PO QAM #90 tabs 10/30/22 11/08/22 Rx tablet,extended release amiloride 5 mg tablet 5 mg PO QAM 11/08/22 11/08/22 History calcium carbonate 600 mg-vitamin 1 tab PO DAILY 11/08/22 11/08/22 History D3 10 mcg (400 unit) tablet (Calcium 600 + D(3)) magnesium chloride 64 mg 64 mg PO BID 11/08/22 11/08/22 History (magnesium chloride) tablet,delayed release Patient History Medical History (Updated 11/14/22 @ 14:06 by Jim Barkley MD) (HFpEF) heart failure with preserved ejection fraction Abnormal CT scan recent CT @ [place] w/ evidence 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 Barkley Chronic systolic CHF (congestive heart failure), NYHA class [address] 2017 (after diverticular perforation complications) Depression Diabetes Difficult intravenous access difficult IV access Left arm Discharge of eye, right Diverticular disease DM type 2 (diabetes mellitus, type 2) NIDDM Encounter for pre-operative examination Hyperlipidemia Left leg DVT started on eliquis. repeat doppler in 07/2021. Lumbar disc herniation with radiculopathy LV dysfunction Metastatic breast cancer hx chemo, radiation + surgery Morbid obesity PAC (premature atrial contraction) h/o PVC (premature ventricular contraction) h/o Surgical History H/O bilateral mastectomy denies limb restriction History of cardiac cath 2017 - [place] - cardiomyopathy - no stents/angioplasty History of humerus fracture (03/26/20) with open reduction and internal fixation due to pathological fracture (Dr. Gillette) History of hysterectomy History of intestinal surgery History of lumbar laminectomy History of surgery for malignant neoplasm 2017 removal of substernal mass + radiation Family History Mother Breast cancer Sister Breast cancer Father Myocardial infarction Prostate cancer Other Cancer Heart disease Hypertension Denies family history of Ovarian cancer Colorectal cancer Social History Smoking Status: Current every day smoker Tobacco Type: Cigarettes Age Started Using Tobacco: 15; Cigarettes Per Day: 3/4 pack per day; Second Hand Exposure: No; Do You Dip or Chew Tobacco: No; Tobacco Cessation Education Requested by Patient: No Hx Alcohol Use: No Hx Substance Use: No Preferred Language: Guamanian Communication Ability: Effective Visual Impairment: No Limitations Dry Mixer Required: No Beliefs That Will Affect Care: None marital status: Single Current Living Situation: Alone Current Living Situation Comment: with caregivers current occupational status: retired How many Children do You have: 0 Other Information That Helps Us Care for You: No Feels Safe at Home: Yes Safety Concerns: Feels Safe At This Time Childhood Exposure to Second-Hand Smoke: No Diet: regular caffeine: Yes Dental Care, Regularly: Yes Physical Activity Frequency: Does not Exercise Seatbelt Use: never Sunscreen Use: Yes Assistive Devices: Cane and Walker Physical Exam Physical Exam: In general this is a well-developed well-nourished white female no acute distress. HEENT exam is negative. Neck is supple with full carotid upstrokes. No carotid bruits. No jugular venous distention. There is no thyromegaly. Cardiovascular exam reveals a regular rhythm with a normal S1 and S2. No S3, S4, or murmurs are noted. Lungs are clear without rales, rhonchi, or wheezes. Abdomen is obese without bruits. Extremities reveal intact radial artery pulses bilaterally. There is trace pretibial edema on the right, 1-2+ on the left. Results & Data Vital Signs (Past 12 Hours) Vital Signs Temp Pulse Pulse Resp BP Pulse Ox O2 Del Method 11/14/22 13:12 95 H 11/14/22 12:04 36.2 C L 96 H 16 94/61 L 94 Nasal Cannula 11/14/22 07:50 36.3 C L 95 H 16 128/83 94 Room Air 11/14/22 03:26 36.8 C 95 H 16 122/81 94 Nasal Cannula O2 Flow Rate 11/14/22 13:12 11/14/22 12:04 3 11/14/22 07:50 11/14/22 03:26 3 PG Care Time/CCT Total # of Minutes Spent Total Time Spent with Patient: Total time spent is greater than 50% in coordination of care (as documented) at patient's floor/unit and/or counseling patient: Coding Level of Care Code 64099 INT INP/OBS CARE MIN Diagnoses Ventricular tachycardia I47.20 (HFpEF) heart failure with preserved ejection fraction I50.30 CAD (coronary artery disease) I25.10
[2022-11-14] MEDS: SODIUM BICARBONATE 8.4% 75 MEQ in SODIUM CHLORIDE 0.45 % 1,000 ML IV SCH (14:16)
[2022-11-14] MEDS: CIPROFLOXACIN HCL 0.3% OP SOLN 2.5 ML BTL OPB SCH ×3 (14:17→20:45)
[2022-11-14 19:14] LABS: Appearance Urine Turbid (Clear); Bacteria Urine Automated Negative (Negative); Bilirubin Urine Negative (Negative); Blood Urine Trace (Negative); Color Urine Dark Yellow; Glucose Urine UA Negative (Negative); Ketones Urine Negative (Negative); Leukocyte Esterase Urine 2+ (Negative); Nitrite Urine Negative (Negative); Protein Urine 1+ (Negative); RBC Urine Automated 0-4 /hpf (0-4); Specific Gravity Urine 1.028 (1.000-1.030); Urobilinogen Urine Negative (Negative); WBC Urine Automated >30 /hpf (0-5); pH Urine 5.5 (4.5-7.5)
[2022-11-14 19:43] LABS: Base Excess VBG -6.7 mEq/L; HCO3 VBG 19 mmol/L; Oxygen Saturation VBG 93.4 %; PCO2 VBG 39 mmHg (38-50); PO2 VBG 65 mmHg
[2022-11-14] MEDS: ATORVASTATIN 10 MG TAB PO SCH (20:45)
--- NOTE | 2022-11-14 20:56 | Orthopedic Consultation ---
Date of Consultation November 14, 2022 Assessment & Plan (1) Skin ulcer: Patient seen, evaluated, and treated at bedside. Right foot diabetic partial thickness hallux IPJ Ulcer. No immediate intervention warranted. Off loading of wound is an important part of patient's management. Continue to off load heels while supine. Will continue to follow while in house. thank you for allowing me to participate in the care of this Patient. History of Present Illness Attending Physician: Perez Orellana MD History of Present Illness Patient is a 66 year-old female seen at bedside for consult of neuropathy with diabetic foot ulcers and peeling skin. Patient has a past medical history significant electrolyte disorders including hypocalcemia, hypomagnesemia, Proximal RTA, h/o metastatic breast cancer admitted with generalized weakness. EMR records were reviewed. Allergies Allergy/AdvReac Type Severity Reaction Status Date / Time aspirin Allergy Mild hives Verified 11/08/22 20:27 ibuprofen Allergy Mild hives Verified 11/08/22 20:27 tamoxifen Allergy Unknown temporary Verified 11/08/22 20:27 left eye vision loss Home Medications Medication Instructions Recorded Confirmed Type acetaminophen 500 mg tablet 500 mg PO Q6H PRN Pain 04/13/20 11/08/22 History (Tylenol Extra Strength) paroxetine HCl 30 mg tablet (Paxil) 30 mg PO QAM #90 tabs 09/30/21 11/08/22 Rx furosemide 40 mg tablet 40 mg PO QAM #90 tabs 10/11/21 11/08/22 Rx fulvestrant 250 mg/5 mL 500 mg (10 mL) IM ONCE 3 doses #10 03/14/22 11/08/22 Rx intramuscular syringe mL apixaban 5 mg tablet (Eliquis) 5 mg PO BID DVT #180 tabs 05/01/22 11/08/22 Rx Wheelchair (Manual) #1 ea 07/14/22 11/08/22 Rx losartan 25 mg tablet 12.5 mg PO QPM #15 tabs 07/21/22 11/08/22 Rx metformin 1,000 mg tablet 1,000 mg PO BID #180 tabs 07/24/22 11/08/22 Rx carvedilol 3.125 mg tablet 3.125 mg PO BID #180 tabs 08/18/22 11/08/22 Rx gabapentin 300 mg capsule 300 mg PO .COMPLEX #360 caps 09/04/22 11/08/22 Rx magnesium oxide 400 mg (241.3 mg 800 mg PO BID #90 tabs 10/16/22 11/08/22 Rx magnesium) tablet atorvastatin 10 mg tablet 10 mg PO QPM #90 tabs 10/23/22 11/08/22 Rx ergocalciferol (vitamin D2) 1,250 1,250 mcg PO .COMPLEX #8 caps 10/25/22 3 Rx mcg (50,000 unit) capsule omeprazole 20 mg capsule,delayed 20 mg PO QAM #90 caps 10/30/22 11/08/22 Rx release potassium chloride 20 mEq 20 meq PO QAM #90 tabs 10/30/22 11/08/22 Rx tablet,extended release amiloride 5 mg tablet 5 mg PO QAM 11/08/22 11/08/22 History calcium carbonate 600 mg-vitamin 1 tab PO DAILY 11/08/22 11/08/22 History D3 10 mcg (400 unit) tablet (Calcium 600 + D(3)) magnesium chloride 64 mg 64 mg PO BID 11/08/22 11/08/22 History (magnesium chloride) tablet,delayed release Patient History Medical History (HFpEF) heart failure with preserved ejection fraction Abnormal CT scan recent CT @ [place] w/ evidence 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 Barkley Chronic systolic CHF (congestive heart failure), NYHA class [address] 2017 (after diverticular perforation complications) Depression Diabetes Difficult intravenous access difficult IV access Left arm Discharge of eye, right Diverticular disease DM type 2 (diabetes mellitus, type 2) NIDDM Encounter for pre-operative examination Hyperlipidemia Left leg DVT started on eliquis. repeat doppler in 07/2021. Lumbar disc herniation with radiculopathy LV dysfunction Metastatic breast cancer hx chemo, radiation + surgery Morbid obesity PAC (premature atrial contraction) h/o PVC (premature ventricular contraction) h/o Surgical History H/O bilateral mastectomy denies limb restriction History of cardiac cath 2017 - [place] - cardiomyopathy - no stents/angioplasty History of humerus fracture (03/26/20) with open reduction and internal fixation due to pathological fracture (Dr. Gillette) History of hysterectomy History of intestinal surgery History of lumbar laminectomy History of surgery for malignant neoplasm 2017 removal of substernal mass + radiation Family History Mother Breast cancer Sister Breast cancer Father Myocardial infarction Prostate cancer Other Cancer Heart disease Hypertension Denies family history of Ovarian cancer Colorectal cancer Social History Smoking Status: Current every day smoker Tobacco Type: Cigarettes Age Started Using Tobacco: 15; Cigarettes Per Day: 3/4 pack per day; Second Hand Exposure: No; Do You Dip or Chew Tobacco: No; Tobacco Cessation Education Requested by Patient: No Hx Alcohol Use: No Hx Substance Use: No Preferred Language: [place] Verdean Communication Ability: Effective Visual Impairment: No Limitations Home Lending Officer Required: No Beliefs That Will Affect Care: None marital status: Single Current Living Situation: Alone Current Living Situation Comment: with caregivers current occupational status: retired How many Children do You have: 0 Other Information That Helps Us Care for You: No Feels Safe at Home: Yes Safety Concerns: Feels Safe At This Time Childhood Exposure to Second-Hand Smoke: No Diet: regular caffeine: Yes Dental Care, Regularly: Yes Physical Activity Frequency: Does not Exercise Seatbelt Use: never Sunscreen Use: Yes Assistive Devices: Cane and Walker Review of Systems Review of Systems: All systems reviewed & are unremarkable except as noted in HPI & below Physical Exam Constitutional: cooperative, comfortable and + lethargic Respiratory: normal respiratory effort Cardiovascular: Vessels: posterior tibial pulses present and dorsalis pedis pulses present Musculoskeletal: Extremities: extremities normal to inspection Skin: + ulcer (Right hallux IPJ), + skin atrophy, + dry skin and + nails discolored Neurologic: Absent epicritic sensation Psychiatric: Orientation: alert and oriented x 3 Results & Data Vital Signs (Past 12 Hours) Vital Signs Temp Pulse Pulse Resp BP Pulse Ox O2 Del Method 11/14/22 19:59 36.4 C L 93 H 18 96/63 L 100 Nasal Cannula 11/14/22 16:41 92 H 11/14/22 15:11 36.7 C 91 H 20 108/62 99 Nasal Cannula 11/14/22 14:39 Nasal Cannula 11/14/22 13:12 95 H 11/14/22 12:04 36.2 C L 96 H 16 94/61 L 94 Nasal Cannula O2 Flow Rate 11/14/22 19:59 2 11/14/22 16:41 11/14/22 15:11 3 11/14/22 14:39 3 11/14/22 13:12 11/14/22 12:04 3
[2022-11-14 21:30] LABS: Calcium 6.7 mg/dl (8.6-10.3); Creatinine Clr Calc Pharmacy 32.4 ml/min; Est GFR (African American) 35.3 ml/min; Est GFR (Non-African American) 30.5 ml/min; Potassium 3.8 mmol/L (3.5-5.1)
[2022-11-15] MEDS: SODIUM BICARBONATE 8.4% 75 MEQ in SODIUM CHLORIDE 0.45 % 1,000 ML IV SCH ×2 (05:03→18:07)
[2022-11-15 05:40] LABS: Albumin Level 2.8 gm/dl (3.4-5.0); BUN Creatinine Ratio 16.2 (10-20); Calcium 6.4 mg/dl (8.6-10.3); Est GFR (African American) 44.2 ml/min; Est GFR (Non-African American) 38.1 ml/min; Magnesium 1.9 mg/dl (1.7-2.4); Phosphorus 2.5 mg/dl (2.5-4.9); Potassium 3.7 mmol/L (3.5-5.1)
[2022-11-15 06:35] LABS: Basophils # (auto) 0.05 K/uL (0.00-0.20); Basophils % (auto) 0.6 %; Eosinophils % (auto) 4.4 %; Hematocrit (blood only) 27.3 % (37.0-47.0); Hemoglobin 8.9 g/dl (12.0-16.0); Immature Granulocytes # (auto) 0.16 K/uL (0.01-0.20); Immature Granulocytes % (auto) 1.8 %; Lymphocytes # (auto) 0.68 K/uL (1.20-3.40); Lymphocytes % (auto) 7.5 %; Mean Corpuscular Hgb Conc 32.6 g/dL (32.0-36.0); Mean Corpuscular Volume 101.1 fL (80.0-100.0); Mean Platelet Volume 8.9 fL (9.4-12.4); Monocytes # (auto) 1.16 K/uL (0.11-0.59); Monocytes % (auto) 12.8 %; Neutrophils # (auto) 6.63 K/uL (1.40-6.50); Neutrophils % (auto) 72.9 %; Platelet Count 279 K/uL (130-400); RDW Standard Deviation 70.6 fL (36.4-46.3); White Blood Count 9.08 K/ul (4.8-10.8)
[2022-11-15] MEDS ORDERED: STAT IV STA ×2 (07:47→08:52)
[2022-11-15] MEDS: INSULIN ASPART PER UNIT CHARGE SC SCH ×4 (08:25→20:59)
[2022-11-15] MEDS: POTASSIUM CHLORIDE CRTAB 20 MEQ TABCR PO SCH (08:26)
[2022-11-15] MEDS: CIPROFLOXACIN HCL 0.3% OP SOLN 2.5 ML BTL OPB SCH ×4 (08:26→20:51)
[2022-11-15] MEDS: oxyCODONE HCL IR 5 MG TAB (IMMEDIATE RELEASE) PO PRN (08:26)
[2022-11-15] MEDS: CALCITRIOL 0.25 MCG CAPSULE PO SCH (08:27)
[2022-11-15] MEDS: LOPERAMIDE LIQUID 120 ML BOTTLE PO SCH ×4 (08:27→20:54)
[2022-11-15] MEDS: PARoxetine HCL 20 MG TAB PO SCH (08:27)
[2022-11-15] MEDS: PANTOprazole 40 MG TAB PO SCH (08:28)
[2022-11-15] MEDS: CALCIUM 600MG + VIT D 400 IU TAB PO SCH (08:29)
[2022-11-15] MEDS: carvediloL 3.125 MG TAB PO SCH (08:29)
[2022-11-15] MEDS: SODIUM BICARBONATE 650 MG TAB PO SCH ×2 (08:29→20:52)
[2022-11-15] MEDS: PSYLLIUM or GUAR GUM FIBER POWDER PACKET PO SCH (08:29)
[2022-11-15] MEDS: guaiFENesin 600 MG TABCR PO SCH (08:30)
[2022-11-15] MEDS: APIXABAN 5 MG TABLET PO SCH (08:30)
[2022-11-15] MEDS: NICOTINE 14 MG/24 HR PATCH TD SCH (08:30)
[2022-11-15] MEDS: GABAPENTIN 300 MG CAP PO SCH ×2 (08:30→13:58)
[2022-11-15] MEDS: MICONAZOLE NITRATE POWDER 85 GM EXT SCH ×2 (08:31→20:54)
[2022-11-15] MEDS: CALCIUM GLUCONATE 10% 1,000 MG in SODIUM CHLOR 0.9% MINI-B 50 ML IV SCH ×4 (08:51→09:57)
--- NOTE | 2022-11-15 10:45 | Nephrology Progress Note ---
Date of Service November 15, 2022 Assessment & Plan (1) Acute kidney injury: Plan: Prerenal due to increased ostomy output. Creatinine relatively stable. Volume status acceptable. Encourage even fluid balance. Document strict I/O's. Medications appropriate for kidney function. Gabapentin has been dose adjusted accordingly. 1/2 NS + 75 mEq NaHCO3 infusing. Continue IVF to encourage slightly positive fluid balance. (2) Hypomagnesemia: Plan: GI and renal losses. PO magnesium is being held due to increased ostomy output. Hold amiloride pending improvement in volume status. Monitor daily. (3) Hypocalcemia: Plan: Continue calcitriol 1 mcg daily. Ergocalciferol 86209 units twice weekly. Calcium 600 mg + D3. Calcium gluconate 2 grams IV provided this AM. Recheck in the AM. (4) Hyponatremia: Plan: Encourage oral PO solute intake. Recheck sNa tomorrow AM. (5) Metabolic acidosis with normal anion gap and bicarbonate losses: Plan: Due to ostomy output and pRTA. IV replacement provided. (6) Vitamin D deficiency: Plan: Ergocalciferol twice weekly. Calcitriol 1 mcg daily. (7) Proximal renal tubular acidosis: Plan: Hold amiloride. Medication will now be held due to volume status. (8) High output ileostomy: Plan: Continue isotonic fluids to encourage slightly positive fluid balance. Admission and Anticipated Discharge Date Admission Date: November 08, 2022 Subjective No acute events overnight. No complaints this AM. No fevers. Some mild persistent neuropathic pain in hands. Uncomfortable in bed with postional pain. Appetite improved. Ostomy output improving. Review of Systems Review of Systems: All systems reviewed & are unremarkable except as noted in HPI & below Physical Exam Constitutional: + thin and + frail appearing; no acute distress Eyes: + anicteric sclerae; no corneal abnormality ENMT: Mouth: no oral mucosal abnormality and oral mucous membranes not dry Neck: normal visual inspection and trachea midline Respiratory: normal respiratory effort Auscultation: lungs clear to auscultation bilaterally Cardiovascular: Rate/Rhythm: regular rate Heart Sounds: normal S1 and normal S2 Extremities: no edema Musculoskeletal: Extremities: no cyanosis and no clubbing Skin: + turgor decreased; no jaundice Neurologic: Motor/Sensory: no tremor and no asterixis Psychiatric: Orientation: alert and oriented x 3 Results & Data Vital Signs (Past 12 Hours) Vital Signs Temp Pulse Pulse Resp BP Pulse Ox O2 Del Method 11/15/22 08:17 98 H 96/57 L 11/15/22 07:56 99 H 11/15/22 07:39 37.1 C 101 H 16 87/49 L 100 Nasal Cannula 11/15/22 07:25 Nasal Cannula 11/15/22 02:48 36.7 C 88 18 100/51 L 99 Nasal Cannula 11/14/22 23:00 36.4 C L 91 H 15 92/54 L 99 Nasal Cannula O2 Flow Rate 11/15/22 08:17 11/15/22 07:56 11/15/22 07:39 3 11/15/22 07:25 3 11/15/22 02:48 2 11/14/22 23:00 2 Laboratory Results Laboratory Results - last 24 hr 11/14/22 11/14/22 11/14/22 12:15 12:47 12:47 WBC RBC Hgb Hct MCV MCH MCHC RDW Std Deviation RDW Coeff of Bradford Plt Count MPV Immature Gran % (Auto) Neut % (Auto) Lymph % (Auto) Aiken % (Auto) Eos % (Auto) Baso % (Auto) Neut # (Auto) Lymph # (Auto) Aiken # (Auto) Eos # (Auto) Baso # (Auto) Immature Gran # (Auto) Absolute Nucleated RBC Nucleated RBC % (auto) Neutrophils % (Manual) Band Neutrophils % Lymphocytes % (Manual) Prolymphocyte % Reactive Lymphs % (Man) Monocytes % (Manual) Eosinophils % (Manual) Basophils % (Manual) Metamyelocytes % (Man) Myelocytes % (Man) Promyelocytes % (Man) Blast Cells % (Manual) Plasma Cell % (Manual) Other Cells % Nucleated RBC % Neutrophils # (Manual) Band Neutrophils # Total Absolute Neuts Lymphocytes # (Manual) Prolymphocyte # Reactive Lymphs # Total Abs Lymphocytes Monocytes # (Manual) Eosinophils # (Manual) Basophils # (Manual) Metamyelocytes # (Man) Myelocytes # (Manual) Promyelocytes # (Man) Blast Cells # (Man) Plasma Cell # (Manual) Other Cells # Nucleated RBCs # (Man) Hypersegmented Neuts Hyposegmented Neuts Hypogranular Neuts Large Granular Lymphs # Lrg Granular Lymphs Hairy Cells Smudge Cells Toxic Granulation Toxic Vacuolation Dohle Bodies Golden Rods Platelet Estimate Hypogranular Platelets Giant Platelets Platelet Satelliting RBC Morphology Polychromasia Hypochromasia Poikilocytosis Basophilic Stippling Anisocytosis Microcytosis Macrocytosis Spherocytes Pappenheimer Bodies Sickle Cells Target Cells Tear Drop Cells Ovalocytes Stomatocytes Joe-Allison Gap Bodies Echinocytes Acanthocytes (Spur) Rouleaux RBC Agglutinates Schistocytes ESR 40 H Sezary Cell VBG pH VBG pCO2 VBG pO2 VBG HCO3 VBG O2 Saturation VBG Base Excess Sodium Potassium Chloride Carbon Dioxide Anion Gap BUN Creatinine Est Cr Clr Drug Dosing Est GFR ( Amer) Est GFR (Non-Af Amer) BUN/Creatinine Ratio Glucose POC Glucose 148 H Lactate Calcium Phosphorus Magnesium Ammonia 36.0 Albumin Procalcitonin Urine Color Urine Appearance Urine pH Ur Specific [place] Urine Protein Urine Glucose (UA) Urine Ketones Urine Blood Urine Nitrite Urine Bilirubin Urine Urobilinogen Ur Leukocyte Esterase Urine WBC (Auto) Urine RBC (Auto) U Hyaline Cast (Auto) U Epithel Cells (Auto) Urine Bacteria (Auto) Urine Yeast Blood Parasites ID 11/14/22 11/14/22 11/14/22 12:47 12:47 17:03 WBC RBC Hgb Hct MCV MCH MCHC RDW Std Deviation RDW Coeff of Bradford Plt Count MPV Immature Gran % (Auto) Neut % (Auto) Lymph % (Auto) Aiken % (Auto) Eos % (Auto) Baso % (Auto) Neut # (Auto) Lymph # (Auto) Aiken # (Auto) Eos # (Auto) Baso # (Auto) Immature Gran # (Auto) Absolute Nucleated RBC Nucleated RBC % (auto) Neutrophils % (Manual) Band Neutrophils % Lymphocytes % (Manual) Prolymphocyte % Reactive Lymphs % (Man) Monocytes % (Manual) Eosinophils % (Manual) Basophils % (Manual) Metamyelocytes % (Man) Myelocytes % (Man) Promyelocytes % (Man) Blast Cells % (Manual) Plasma Cell % (Manual) Other Cells % Nucleated RBC % Neutrophils # (Manual) Band Neutrophils # Total Absolute Neuts Lymphocytes # (Manual) Prolymphocyte # Reactive Lymphs # Total Abs Lymphocytes Monocytes # (Manual) Eosinophils # (Manual) Basophils # (Manual) Metamyelocytes # (Man) Myelocytes # (Manual) Promyelocytes # (Man) Blast Cells # (Man) Plasma Cell # (Manual) Other Cells # Nucleated RBCs # (Man) Hypersegmented Neuts Hyposegmented Neuts Hypogranular Neuts Large Granular Lymphs # Lrg Granular Lymphs Hairy Cells Smudge Cells Toxic Granulation Toxic Vacuolation Dohle Bodies Golden Rods Platelet Estimate Hypogranular Platelets Giant Platelets Platelet Satelliting RBC Morphology Polychromasia Hypochromasia Poikilocytosis Basophilic Stippling Anisocytosis Microcytosis Macrocytosis Spherocytes Pappenheimer Bodies Sickle Cells Target Cells Tear Drop Cells Ovalocytes Stomatocytes Joe-Allison Gap Bodies Echinocytes Acanthocytes (Spur) Rouleaux RBC Agglutinates Schistocytes ESR Sezary Cell VBG pH 7.26 L VBG pCO2 40 VBG pO2 65 VBG HCO3 18 VBG O2 Saturation 92.0 VBG Base Excess -8.7 Sodium Potassium Chloride Carbon Dioxide Anion Gap BUN Creatinine Est Cr Clr Drug Dosing Est GFR ( Amer) Est GFR (Non-Af Amer) BUN/Creatinine Ratio Glucose POC Glucose 146 H Lactate Calcium Phosphorus Magnesium Ammonia Albumin Procalcitonin 0.62 H Urine Color Urine Appearance Urine pH Ur Specific [place] Urine Protein Urine Glucose (UA) Urine Ketones Urine Blood Urine Nitrite Urine Bilirubin Urine Urobilinogen Ur Leukocyte Esterase Urine WBC (Auto) Urine RBC (Auto) U Hyaline Cast (Auto) U Epithel Cells (Auto) Urine Bacteria (Auto) Urine Yeast Blood Parasites ID 11/14/22 11/14/22 11/14/22 19:27 19:27 20:15 WBC RBC Hgb Hct MCV MCH MCHC RDW Std Deviation RDW Coeff of Bradford Plt Count MPV Immature Gran % (Auto) Neut % (Auto) Lymph % (Auto) Aiken % (Auto) Eos % (Auto) Baso % (Auto) Neut # (Auto) Lymph # (Auto) Aiken # (Auto) Eos # (Auto) Baso # (Auto) Immature Gran # (Auto) Absolute Nucleated RBC Nucleated RBC % (auto) Neutrophils % (Manual) Band Neutrophils % Lymphocytes % (Manual) Prolymphocyte % Reactive Lymphs % (Man) Monocytes % (Manual) Eosinophils % (Manual) Basophils % (Manual) Metamyelocytes % (Man) Myelocytes % (Man) Promyelocytes % (Man) Blast Cells % (Manual) Plasma Cell % (Manual) Other Cells % Nucleated RBC % Neutrophils # (Manual) Band Neutrophils # Total Absolute Neuts Lymphocytes # (Manual) Prolymphocyte # Reactive Lymphs # Total Abs Lymphocytes Monocytes # (Manual) Eosinophils # (Manual) Basophils # (Manual) Metamyelocytes # (Man) Myelocytes # (Manual) Promyelocytes # (Man) Blast Cells # (Man) Plasma Cell # (Manual) Other Cells # Nucleated RBCs # (Man) Hypersegmented Neuts Hyposegmented Neuts Hypogranular Neuts Large Granular Lymphs # Lrg Granular Lymphs Hairy Cells Smudge Cells Toxic Granulation Toxic Vacuolation Dohle Bodies Golden Rods Platelet Estimate Hypogranular Platelets Giant Platelets Platelet Satelliting RBC Morphology Polychromasia Hypochromasia Poikilocytosis Basophilic Stippling Anisocytosis Microcytosis Macrocytosis Spherocytes Pappenheimer Bodies Sickle Cells Target Cells Tear Drop Cells Ovalocytes Stomatocytes Joe-[place]ison Gap Bodies Echinocytes Acanthocytes (Spur) Rouleaux RBC Agglutinates Schistocytes ESR Sezary Cell VBG pH 7.30 L VBG pCO2 39 VBG pO2 65 VBG HCO3 19 VBG O2 Saturation 93.4 VBG Base Excess -6.7 Sodium Potassium Chloride Carbon Dioxide Anion Gap BUN Creatinine Est Cr Clr Drug Dosing Est GFR ( Amer) Est GFR (Non-Af Amer) BUN/Creatinine Ratio Glucose POC Glucose 149 H Lactate 0.8 Calcium Phosphorus Magnesium Ammonia Albumin Procalcitonin Urine Color Urine Appearance Urine pH Ur Specific [place] Urine Protein Urine Glucose (UA) Urine Ketones Urine Blood Urine Nitrite Urine Bilirubin Urine Urobilinogen Ur Leukocyte Esterase Urine WBC (Auto) Urine RBC (Auto) U Hyaline Cast (Auto) U Epithel Cells (Auto) Urine Bacteria (Auto) Urine Yeast Blood Parasites ID 11/14/22 11/14/22 11/15/22 20:34 Unknown 04:56 WBC RBC Hgb Hct MCV MCH MCHC RDW Std Deviation RDW Coeff of Bradford Plt Count MPV Immature Gran % (Auto) Neut % (Auto) Lymph % (Auto) Aiken % (Auto) Eos % (Auto) Baso % (Auto) Neut # (Auto) Lymph # (Auto) Aiken # (Auto) Eos # (Auto) Baso # (Auto) Immature Gran # (Auto) Absolute Nucleated RBC Nucleated RBC % (auto) Neutrophils % (Manual) Band Neutrophils % Lymphocytes % (Manual) Prolymphocyte % Reactive Lymphs % (Man) Monocytes % (Manual) Eosinophils % (Manual) Basophils % (Manual) Metamyelocytes % (Man) Myelocytes % (Man) Promyelocytes % (Man) Blast Cells % (Manual) Plasma Cell % (Manual) Other Cells % Nucleated RBC % Neutrophils # (Manual) Band Neutrophils # Total Absolute Neuts Lymphocytes # (Manual) Prolymphocyte # Reactive Lymphs # Total Abs Lymphocytes Monocytes # (Manual) Eosinophils # (Manual) Basophils # (Manual) Metamyelocytes # (Man) Myelocytes # (Manual) Promyelocytes # (Man) Blast Cells # (Man) Plasma Cell # (Manual) Other Cells # Nucleated RBCs # (Man) Hypersegmented Neuts Hyposegmented Neuts Hypogranular Neuts Large Granular Lymphs # Lrg Granular Lymphs Hairy Cells Smudge Cells Toxic Granulation Toxic Vacuolation Dohle Bodies Golden Rods Platelet Estimate Hypogranular Platelets Giant Platelets Platelet Satelliting RBC Morphology Polychromasia Hypochromasia Poikilocytosis Basophilic Stippling Anisocytosis Microcytosis Macrocytosis Spherocytes Pappenheimer Bodies Sickle Cells Target Cells Tear Drop Cells Ovalocytes Stomatocytes Joe-[place] Gap Bodies Echinocytes Acanthocytes (Spur) Rouleaux RBC Agglutinates Schistocytes ESR Sezary Cell VBG pH VBG pCO2 VBG pO2 VBG HCO3 VBG O2 Saturation VBG Base Excess Sodium 133 L 135 L Potassium 3.8 3.7 Chloride 105 106 Carbon Dioxide 20 L 21 Anion Gap 8 8 BUN 24 H 23 Creatinine 1.71 H 1.42 H Est Cr Clr Drug Dosing 32.4 39.0 Est GFR ( Amer) 35.3 44.2 Est GFR (Non-Af Amer) 30.5 38.1 BUN/Creatinine Ratio 14.0 16.2 Glucose 120 H 134 H POC Glucose Lactate Calcium 6.7 L 6.4 L Phosphorus 2.5 D Magnesium 1.9 Ammonia Albumin 2.8 L Procalcitonin Urine Color Dark Yellow Urine Appearance Turbid A Urine pH 5.5 Ur Specific [place] 1.028 Urine Protein 1+ H Urine Glucose (UA) Negative Urine Ketones Negative Urine Blood Trace H Urine Nitrite Negative Urine Bilirubin Negative Urine Urobilinogen Negative Ur Leukocyte Esterase 2+ H Urine WBC (Auto) >30 H Urine RBC (Auto) 0-4 U Hyaline Cast (Auto) 5-10 H U Epithel Cells (Auto) 5-10 H Urine Bacteria (Auto) Negative Urine Yeast Not Reportable Blood Parasites ID 11/15/22 11/15/22 11/15/22 04:56 05:00 05:54 WBC Cancelled 9.08 RBC Cancelled 2.70 L Hgb Cancelled 8.9 L D Hct Cancelled 27.3 L MCV Cancelled 101.1 H MCH Cancelled 33.0 MCHC Cancelled 32.6 RDW Std Deviation Cancelled 70.6 H RDW Coeff of Bradford Cancelled 19.0 H Plt Count Cancelled 279 MPV Cancelled 8.9 L Immature Gran % (Auto) Cancelled 1.8 Neut % (Auto) Cancelled 72.9 Lymph % (Auto) Cancelled 7.5 Aiken % (Auto) Cancelled 12.8 Eos % (Auto) Cancelled 4.4 Baso % (Auto) Cancelled 0.6 Neut # (Auto) Cancelled 6.63 H Lymph # (Auto) Cancelled 0.68 L Aiken # (Auto) Cancelled 1.16 H Eos # (Auto) Cancelled 0.40 Baso # (Auto) Cancelled 0.05 Immature Gran # (Auto) Cancelled 0.16 Absolute Nucleated RBC Cancelled Nucleated RBC % (auto) Cancelled Neutrophils % (Manual) Cancelled Band Neutrophils % Cancelled Lymphocytes % (Manual) Cancelled Prolymphocyte % Cancelled Reactive Lymphs % (Man) Cancelled Monocytes % (Manual) Cancelled Eosinophils % (Manual) Cancelled Basophils % (Manual) Cancelled Metamyelocytes % (Man) Cancelled Myelocytes % (Man) Cancelled Promyelocytes % (Man) Cancelled Blast Cells % (Manual) Cancelled Plasma Cell % (Manual) Cancelled Other Cells % Cancelled Nucleated RBC % Cancelled Neutrophils # (Manual) Cancelled Band Neutrophils # Cancelled Total Absolute Neuts Cancelled Lymphocytes # (Manual) Cancelled Prolymphocyte # Cancelled Reactive Lymphs # Cancelled Total Abs Lymphocytes Cancelled Monocytes # (Manual) Cancelled Eosinophils # (Manual) Cancelled Basophils # (Manual) Cancelled Metamyelocytes # (Man) Cancelled Myelocytes # (Manual) Cancelled Promyelocytes # (Man) Cancelled Blast Cells # (Man) Cancelled Plasma Cell # (Manual) Cancelled Other Cells # Cancelled Nucleated RBCs # (Man) Cancelled Hypersegmented Neuts Cancelled Hyposegmented Neuts Cancelled Hypogranular Neuts Cancelled Large Granular Lymphs Cancelled # Lrg Granular Lymphs Cancelled Hairy Cells Cancelled Smudge Cells Cancelled Toxic Granulation Cancelled Toxic Vacuolation Cancelled Dohle Bodies Cancelled Golden Rods Cancelled Platelet Estimate Cancelled Hypogranular Platelets Cancelled Giant Platelets Cancelled Platelet Satelliting Cancelled RBC Morphology Cancelled Polychromasia Cancelled Hypochromasia Cancelled Poikilocytosis Cancelled Basophilic Stippling Cancelled Anisocytosis Cancelled Microcytosis Cancelled Macrocytosis Cancelled Spherocytes Cancelled Pappenheimer Bodies Cancelled Sickle Cells Cancelled Target Cells Cancelled Tear Drop Cells Cancelled Ovalocytes Cancelled Stomatocytes Cancelled [place] Bodies Cancelled Echinocytes Cancelled Acanthocytes (Spur) Cancelled Rouleaux Cancelled RBC Agglutinates Cancelled Schistocytes Cancelled ESR Sezary Cell Cancelled VBG pH 7.37 VBG pCO2 VBG pO2 VBG HCO3 VBG O2 Saturation VBG Base Excess Sodium Potassium Chloride Carbon Dioxide Anion Gap BUN Creatinine Est Cr Clr Drug Dosing Est GFR ( Amer) Est GFR (Non-Af Amer) BUN/Creatinine Ratio Glucose POC Glucose Lactate Calcium Phosphorus Magnesium Ammonia Albumin Procalcitonin Urine Color Urine Appearance Urine pH Ur Specific [place] Urine Protein Urine Glucose (UA) Urine Ketones Urine Blood Urine Nitrite Urine Bilirubin Urine Urobilinogen Ur Leukocyte Esterase Urine WBC (Auto) Urine RBC (Auto) U Hyaline Cast (Auto) U Epithel Cells (Auto) Urine Bacteria (Auto) Urine Yeast Blood Parasites ID Cancelled 11/15/22 08:16 WBC RBC Hgb Hct MCV MCH MCHC RDW Std Deviation RDW Coeff of Bradford Plt Count MPV Immature Gran % (Auto) Neut % (Auto) Lymph % (Auto) Aiken % (Auto) Eos % (Auto) Baso % (Auto) Neut # (Auto) Lymph # (Auto) Aiken # (Auto) Eos # (Auto) Baso # (Auto) Immature Gran # (Auto) Absolute Nucleated RBC Nucleated RBC % (auto) Neutrophils % (Manual) Band Neutrophils % Lymphocytes % (Manual) Prolymphocyte % Reactive Lymphs % (Man) Monocytes % (Manual) Eosinophils % (Manual) Basophils % (Manual) Metamyelocytes % (Man) Myelocytes % (Man) Promyelocytes % (Man) Blast Cells % (Manual) Plasma Cell % (Manual) Other Cells % Nucleated RBC % Neutrophils # (Manual) Band Neutrophils # Total Absolute Neuts Lymphocytes # (Manual) Prolymphocyte # Reactive Lymphs # Total Abs Lymphocytes Monocytes # (Manual) Eosinophils # (Manual) Basophils # (Manual) Metamyelocytes # (Man) Myelocytes # (Manual) Promyelocytes # (Man) Blast Cells # (Man) Plasma Cell # (Manual) Other Cells # Nucleated RBCs # (Man) Hypersegmented Neuts Hyposegmented Neuts Hypogranular Neuts Large Granular Lymphs # Lrg Granular Lymphs Hairy Cells Smudge Cells Toxic Granulation Toxic Vacuolation Dohle Bodies Golden Rods Platelet Estimate Hypogranular Platelets Giant Platelets Platelet Satelliting RBC Morphology Polychromasia Hypochromasia Poikilocytosis Basophilic Stippling Anisocytosis Microcytosis Macrocytosis Spherocytes Pappenheimer Bodies Sickle Cells Target Cells Tear Drop Cells Ovalocytes Stomatocytes Joe-[place] Gap Bodies Echinocytes Acanthocytes (Spur) Rouleaux RBC Agglutinates Schistocytes ESR Sezary Cell VBG pH VBG pCO2 VBG pO2 VBG HCO3 VBG O2 Saturation VBG Base Excess Sodium Potassium Chloride Carbon Dioxide Anion Gap BUN Creatinine Est Cr Clr Drug Dosing Est GFR ( Amer) Est GFR (Non-Af Amer) BUN/Creatinine Ratio Glucose POC Glucose 140 H Lactate Calcium Phosphorus Magnesium Ammonia Albumin Procalcitonin Urine Color Urine Appearance Urine pH Ur Specific [place] Urine Protein Urine Glucose (UA) Urine Ketones Urine Blood Urine Nitrite Urine Bilirubin Urine Urobilinogen Ur Leukocyte Esterase Urine WBC (Auto) Urine RBC (Auto) U Hyaline Cast (Auto) U Epithel Cells (Auto) Urine Bacteria (Auto) Urine Yeast Blood Parasites ID PG Care Time/CCT Total # of Minutes Spent Total Time Spent with Patient: Total time spent is greater than 50% in coordination of care (as documented) at patient's floor/unit and/or counseling patient: Coding Level of Care Code 52554 SUB INP/OBS CARE 3/50MIN Diagnoses Acute kidney injury N17.9 Hypomagnesemia E83.42 Hypocalcemia E83.51 Hyponatremia E87.1 Metabolic acidosis with normal anion gap and bicarbonate losses E87.20 Vitamin D deficiency E55.9 Proximal renal tubular acidosis N25.89 High output ileostomy R19.8; Z93.2
--- NOTE | 2022-11-15 12:09 | Cardiology Progress Note ---
Date of Service November 15, 2022 Assessment & Plan (1) Ventricular tachycardia: Plan: -no further ventricular tachycardia. -likely secondary to her acute illness and electrolyte abnormalities. -normal left ventricular systolic function on echocardiogram. -continue carvedilol. -no further cardiac workup necessary. (2) (HFpEF) heart failure with preserved ejection fraction: Plan: -well compensated at this time. (3) CAD (coronary artery disease): Plan: -minimal disease on catheterization, July 2016. Admission and Anticipated Discharge Date Admission Date: November 08, 2022 Subjective The patient is resting comfortably in bed complaints of chest pain, dyspnea, or palpitations. Her main complaint is that of fatigue and weakness. Physical Exam Physical Exam: In general this is a well-developed well-nourished white female no acute distress. HEENT exam is negative. Neck is supple with full carotid upstrokes. No carotid bruits. No jugular venous distention. There is no thyromegaly. Cardiovascular exam reveals a regular rhythm with a normal S1 and S2. No S3, S4, or murmurs are noted. Lungs are clear without rales, rhonchi, or wheezes. Abdomen is obese without bruits. Extremities reveal intact radial artery pulses bilaterally. There is trace pretibial edema on the right, 1-2+ on the left. Results & Data Vital Signs (Past 12 Hours) Vital Signs Temp Pulse Pulse Resp BP Pulse Ox O2 Del Method 11/15/22 11:36 37.5 C 96 H 17 89/56 L 99 Nasal Cannula 11/15/22 08:17 98 H 96/57 L 11/15/22 07:56 99 H 11/15/22 07:39 37.1 C 101 H 16 87/49 L 100 Nasal Cannula 11/15/22 07:25 Nasal Cannula 11/15/22 02:48 36.7 C 88 18 100/51 L 99 Nasal Cannula O2 Flow Rate 11/15/22 11:36 3 11/15/22 08:17 11/15/22 07:56 11/15/22 07:39 3 11/15/22 07:25 3 11/15/22 02:48 2 Diagnostic Findings The monitor is benign. No further ventricular tachycardia. PG Care Time/CCT Total # of Minutes Spent Total Time Spent with Patient: Total time spent is greater than 50% in coordination of care (as documented) at patient's floor/unit and/or counseling patient: Coding Level of Care Code 58223 SUB INP/OBS CARE 50MIN Diagnoses Ventricular tachycardia I47.20 (HFpEF) heart failure with preserved ejection fraction I50.30 CAD (coronary artery disease) I25.10
--- NOTE | 2022-11-15 12:28 | Hospitalist Progress Note ---
Date of Service November 15, 2022 Assessment & Plan (1) Septic shock: Plan: source - RLL pneumonia blood cx's sent urine cx from 11/14 negative (did have pseudomonas UTI early in stay - thus resolved) lactate negative received 30cc/kg of crystalloid without response/improvement in BPs this afternoon cortisol 20 mentation did improve with fluid resuscitation perfusion on exam was improved with fluid resuscitation zosyn began for RLL pneumonia; MRSA swab pending discussed care with Dr Miranda - ICU attending will transfer to ICU for pressor support start levophed to keep MAP > 65 if shock remains refractory consider stress-dose steroids of note - H/H have trended down over the last few days; no overt GI bleeding - no melena stool, no BRBPR via her ostomy suspect she was hemoconcentrated and H/H have dropped due to copious IV fluids since yesterday am doubt acute GI bleeding (2) RLL pneumonia: Plan: either aspiration given her dysphagia over the last 1-2 days vs nosocomial / gram negative etiology check MRSA swab - r/o possibility of MRSA pneumonia zosyn add vanco or zyvox if MRSA screen is + consider repeat COVID testing (3) Palmar-plantar erythrodysesthesia: Plan: all fingers affected and nearly all the toes uncertain if the skin findings are acral erythema / palmar-plantar erythrodysesthesia vs small vessel/cutaneous vasculitis vs other if former Xeloda likely to blame - Xeloda has been implicated in the dermatology literature to cause acral erythema Xeloda has been stopped exam findings today are no worse than prior informally corresponded with dermatology/rheumatology today consider autoimmune w/u -- cryoglobulins, antiphospholipid ab's, lupus anticoagulant, etc (4) Metabolic acidosis with normal anion gap and bicarbonate losses: Plan: 2nd to high output losses via colostomy +/- proximal RTA lactate is negative even in the presence of her septic shock today no evidence of DKA remains on PO bicarbonate tabs remains on bicarbonate infusion - 1/2 NS with 75meq bicarb at 75cc/hr pH did normalize overnight bicarb on labs much improved (5) Anemia: Plan: H/H trended down over last 2-3 days suspect hemoconcentration followed by copious hydration yesterday/today led to drop in hemoglobin no overt GI bleeding no signs/symptoms of retroperitoneal bleeding in light of #1 check coags upon ICU arrival r/o DIC r/o hemolysis (6) Lethargy: Plan: suspect multifactorial causes for such including her previous acidosis and now septic shock/RLL pneumonia urine cx negative CT head neg for brain mets, ICH, etc ammonia level wnl pH has normalized (7) Acute kidney injury: Plan: had mild OZIEL at time of admission this improved with Cr of 1.2, then OZIEL recurred again with Cr yesterday of 1.99 pre-renal in etiology - has looked very volume depleted and has had low BPs off/on during the stay hyaline casts seen on most recent u/a creatinine did trend down overnight with IV fluids, IV albumin, and supportive care cont serial BMPs appreciate nephrology assistance (8) (HFpEF) heart failure with preserved ejection fraction: Plan: echo this admission with normal EF no evidence of volume overload even with ongoing hydration appreciate cardiology assistance (9) NSVT (nonsustained ventricular tachycardia): Plan: 13 beat run of NSVT 2 days ago no symptoms fortunately EF is preserved likely due to electrolyte issues keep mag near 2, keep K near 4 or higher, and keep calcium as close to normal as possible holding coreg due to #1 above (10) Hyponatremia: Plan: 2nd to OZIEL & volume depletion (11) Acute conjunctivitis of both eyes: Plan: no response to polymyxin/TMP thus, switched to cipro eye drops IV zosyn will get shed in tears as well (12) Hypomagnesemia: Plan: mag levels x 4 days wnl was on high-dose PO mag supplementation which could have been contributing to severe colostomy output PO mag placed on hold (13) Peripheral neuropathy: Plan: 2nd to prior chemo for breast ca? hold gabapentin due to worsening lethargy (14) Malignant neoplasm of breast metastatic to bone: Plan: follows with Dr Montoya at [facility] Xeloda stopped recently due to concerns for hand/foot syndrome // acral erythema most recent PET scan 08/2022 with skeletal mets but no solid-organ mets CT a/p without intra-abdominal metastatic disease (15) Hypotension: Plan: see #1 above even before today's events she has intermittently had SBPs in the 80s and 90s (16) Hypocalcemia: Plan: ongoing ordered 2 additional IV calcium gluconate infusions appreciate nephrology assistance with this s/p IV Ca replacement + calcitriol + ca/vit D supplementation (17) GERD (gastroesophageal reflux disease): Plan: PPI (18) Hyperlipidemia: Plan: remains on lipitor but can hold upon ICU transfer (19) Depression: Plan: cont paxil (20) CAD (coronary artery disease): Plan: per records minimal nonobstructive CAD on prior heart cath (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: Plan: contributing to acid/base balance, etc defer management to nephrology (22) Colostomy in place: Plan: created 2017 due to complications from diverticulitis significant high output of stool recently appears noninfectious - stool biofire negative; a repeat cdiff test also negative has improved with immodium QID + fiber output now 1500 or so/24 hours if needed could trial bile acid sequestrant (23) DM type 2 (diabetes mellitus, type 2): Plan: resolved last a1c <6% would not resume metformin in future in light of renal dysfunction, failure to thrive, etc (24) History of DVT (deep vein thrombosis): Plan: remains on Eliquis 5mg BID (25) Severe protein-calorie malnutrition: Plan: near 15kg weight loss since June 2022 2nd to metastatic breast ca albumin low in mid 2's very poor appetite consider marinol or similar but defer for now (26) Pseudomonas urinary tract infection: Plan: early in admission - s/p course of cipro for such with ongoing lethargy, mildly elevated procalcitonin, etc I repeated urine cx and this returned negative today (27) Tobacco abuse: Plan: cont nicoderm patch Plan care d/w Dr Yepez from nephrology care d/w Yamel's sister Tg multiple times at bedside today care d/w Dr Miranda ICU attending informal correspondence with MAURY Rheum today corresponded with speech therapy very complex care coordination critical care provided for #1 above transferring to ICU for pressors total critical care time 90 minutes today Admission and Anticipated Discharge Date Admission Date: November 08, 2022 Subjective events of today - this am was contacted by nursing that SBPs were in the 90s asked staff to hold her AM coreg later in the AM was contacted again by staff that patient was not swallowing well difficulty getting AM meds down but staff were ultimately successful with this shortly after asked speech therapy to see her for bedside evaluation during rounds the patient was more lethargic than yesterday would not open eyes would answer basic questions - but much more difficult to arouse than previous on exam there were focal RLL rhonchi/rales - new relative to yesterday's exam urgent CXR showed RLL pneumonia about the same time she developed fever to 38.5 and her SBP bottomed to the 70s blood cx's drawn, stat lactate/other labs obtained zosyn IV started 1 L NSS given without response in SBP (ongoing in the 70s) 2nd L of NSS also given without a reponse in SBP (still in the 70s) multiple bedside discussions held with pt's sister Tg as well as Ms Ojeda of note - Ms Ojeda did become more responsive as the afternoon went on with fluid resuscitation after many discussions Ms Ojeda did state she would want transfer to the ICU for pressor support and other supportive care measures short of DNR/DNI I then spoke with Dr Miranda - ICU attending - who accepted Ms Ojeda to ICU for septic shock care transfer orders placed ordered levophed per protocol and gave another 500cc NS bolus just prior to ICU transfer of note - exam following fluid resuscitation - gen - more awake, more alert but still toxic appearing pulses - 2+ b/l feet; cap refill improved; feet more warm Review of Systems Review of Systems: gen - extreme fatigue, no appetite, feels poorly cv - no chest pain pulm - no dyspnea; occasional cough GI - no abd pain/nausea/emesis; ostomy with ongoing liquid stool output - espana in place musculo - denies joint pains; denies pain in hands/feet Physical Exam Physical Exam: gen - lethargic, toxic appearing, does not look well eyes - matting/crusting of lids and conjunctiva b/l persist mouth - MM still dry; no thrush neck - no JVD heart - RRR, s1 s2, no murmur lungs - focal rhonchi, course BS, and rales right base; CTA b/l otherwise abd - soft NT ND BS+; ostomy left side of abdomen, stoma pink and clean; green stool in collection bag ext - no edema, cap refill still about 2-3 seconds over the feet/toes skin - all fingertips x 10 and all toes x 10 (especially great hallux b/l) with peeling of skin; erythematous tips of fingers/toes; cap refill >2 seconds of tips of fingers/toes; cool to touch Results & Data Results & Data Vital Signs (Past 12 Hours) Vital Signs Temp Pulse Pulse Resp BP Pulse Ox O2 Del Method 11/15/22 11:36 37.5 C 96 H 17 89/56 L 99 Nasal Cannula 11/15/22 08:17 98 H 96/57 L 11/15/22 07:56 99 H 11/15/22 07:39 37.1 C 101 H 16 87/49 L 100 Nasal Cannula 11/15/22 07:25 Nasal Cannula 11/15/22 02:48 36.7 C 88 18 100/51 L 99 Nasal Cannula O2 Flow Rate 11/15/22 11:36 3 11/15/22 08:17 11/15/22 07:56 11/15/22 07:39 3 11/15/22 07:25 3 11/15/22 02:48 2 Laboratory Results Laboratory Results - last 24 hr 11/15/22 11/15/22 11/15/22 04:56 04:56 05:00 WBC Cancelled RBC Cancelled Hgb Cancelled Hct Cancelled MCV Cancelled MCH Cancelled MCHC Cancelled RDW Std Deviation Cancelled RDW Coeff of Bradford Cancelled Plt Count Cancelled MPV Cancelled Immature Gran % (Auto) Cancelled Neut % (Auto) Cancelled Lymph % (Auto) Cancelled [place] % (Auto) Cancelled Eos % (Auto) Cancelled Baso % (Auto) Cancelled Neut # (Auto) Cancelled Lymph # (Auto) Cancelled [place] # (Auto) Cancelled Eos # (Auto) Cancelled Baso # (Auto) Cancelled Immature Gran # (Auto) Cancelled Absolute Nucleated RBC Cancelled Nucleated RBC % (auto) Cancelled Neutrophils % (Manual) Cancelled Band Neutrophils % Cancelled Lymphocytes % (Manual) Cancelled Prolymphocyte % Cancelled Reactive Lymphs % (Man) Cancelled Monocytes % (Manual) Cancelled Eosinophils % (Manual) Cancelled Basophils % (Manual) Cancelled Metamyelocytes % (Man) Cancelled Myelocytes % (Man) Cancelled Promyelocytes % (Man) Cancelled Blast Cells % (Manual) Cancelled Plasma Cell % (Manual) Cancelled Other Cells % Cancelled Nucleated RBC % Cancelled Neutrophils # (Manual) Cancelled Band Neutrophils # Cancelled Total Absolute Neuts Cancelled Lymphocytes # (Manual) Cancelled Prolymphocyte # Cancelled Reactive Lymphs # Cancelled Total Abs Lymphocytes Cancelled Monocytes # (Manual) Cancelled Eosinophils # (Manual) Cancelled Basophils # (Manual) Cancelled Metamyelocytes # (Man) Cancelled Myelocytes # (Manual) Cancelled Promyelocytes # (Man) Cancelled Blast Cells # (Man) Cancelled Plasma Cell # (Manual) Cancelled Other Cells # Cancelled Nucleated RBCs # (Man) Cancelled Hypersegmented Neuts Cancelled Hyposegmented Neuts Cancelled Hypogranular Neuts Cancelled Large Granular Lymphs Cancelled # Lrg Granular Lymphs Cancelled Hairy Cells Cancelled Smudge Cells Cancelled Toxic Granulation Cancelled Toxic Vacuolation Cancelled Dohle Bodies Cancelled Golden Rods Cancelled Platelet Estimate Cancelled Hypogranular Platelets Cancelled Giant Platelets Cancelled Platelet Satelliting Cancelled RBC Morphology Cancelled Polychromasia Cancelled Hypochromasia Cancelled Poikilocytosis Cancelled Basophilic Stippling Cancelled Anisocytosis Cancelled Microcytosis Cancelled Macrocytosis Cancelled Spherocytes Cancelled Pappenheimer Bodies Cancelled Sickle Cells Cancelled Target Cells Cancelled Tear Drop Cells Cancelled Ovalocytes Cancelled Stomatocytes Cancelled Joe-Ainsworth Bodies Cancelled Echinocytes Cancelled Acanthocytes (Spur) Cancelled Rouleaux Cancelled RBC Agglutinates Cancelled Schistocytes Cancelled Sezary Cell Cancelled PT INR APTT PTT Ratio Fibrinogen VBG pH 7.37 VBG pCO2 VBG pO2 VBG HCO3 VBG O2 Saturation VBG Base Excess Sodium 135 L Potassium 3.7 Chloride 106 Carbon Dioxide 21 Anion Gap 8 BUN 23 Creatinine 1.42 H Est Cr Clr Drug Dosing 39.0 Est GFR ( Amer) 44.2 Est GFR (Non-Af Amer) 38.1 BUN/Creatinine Ratio 16.2 Glucose 134 H POC Glucose Lactate Calcium 6.4 L Ionized Calcium Phosphorus 2.5 D Magnesium 1.9 Total Bilirubin Direct Bilirubin AST ALT Alkaline Phosphatase Total Protein Albumin 2.8 L Globulin Albumin/Globulin Ratio Procalcitonin Random Cortisol Nasal Screen MRSA (PCR) Blood Parasites ID Cancelled 11/15/22 11/15/22 11/15/22 05:54 08:16 11:58 WBC 9.08 RBC 2.70 L Hgb 8.9 L D Hct 27.3 L MCV 101.1 H MCH 33.0 MCHC 32.6 RDW Std Deviation 70.6 H RDW Coeff of Bradford 19.0 H Plt Count 279 MPV 8.9 L Immature Gran % (Auto) 1.8 Neut % (Auto) 72.9 Lymph % (Auto) 7.5 [place] % (Auto) 12.8 Eos % (Auto) 4.4 Baso % (Auto) 0.6 Neut # (Auto) 6.63 H Lymph # (Auto) 0.68 L [place] # (Auto) 1.16 H Eos # (Auto) 0.40 Baso # (Auto) 0.05 Immature Gran # (Auto) 0.16 Absolute Nucleated RBC Nucleated RBC % (auto) Neutrophils % (Manual) Band Neutrophils % Lymphocytes % (Manual) Prolymphocyte % Reactive Lymphs % (Man) Monocytes % (Manual) Eosinophils % (Manual) Basophils % (Manual) Metamyelocytes % (Man) Myelocytes % (Man) Promyelocytes % (Man) Blast Cells % (Manual) Plasma Cell % (Manual) Other Cells % Nucleated RBC % Neutrophils # (Manual) Band Neutrophils # Total Absolute Neuts Lymphocytes # (Manual) Prolymphocyte # Reactive Lymphs # Total Abs Lymphocytes Monocytes # (Manual) Eosinophils # (Manual) Basophils # (Manual) Metamyelocytes # (Man) Myelocytes # (Manual) Promyelocytes # (Man) Blast Cells # (Man) Plasma Cell # (Manual) Other Cells # Nucleated RBCs # (Man) Hypersegmented Neuts Hyposegmented Neuts Hypogranular Neuts Large Granular Lymphs # Lrg Granular Lymphs Hairy Cells Smudge Cells Toxic Granulation Toxic Vacuolation Dohle Bodies Golden Rods Platelet Estimate Hypogranular Platelets Giant Platelets Platelet Satelliting RBC Morphology Polychromasia Hypochromasia Poikilocytosis Basophilic Stippling Anisocytosis Microcytosis Macrocytosis Spherocytes Pappenheimer Bodies Sickle Cells Target Cells Tear Drop Cells Ovalocytes Stomatocytes Joe-Ainsworth Bodies Echinocytes Acanthocytes (Spur) Rouleaux RBC Agglutinates Schistocytes Sezary Cell PT INR APTT PTT Ratio Fibrinogen VBG pH VBG pCO2 VBG pO2 VBG HCO3 VBG O2 Saturation VBG Base Excess Sodium Potassium Chloride Carbon Dioxide Anion Gap BUN Creatinine Est Cr Clr Drug Dosing Est GFR ( Amer) Est GFR (Non-Af Amer) BUN/Creatinine Ratio Glucose POC Glucose 140 H 208 H Lactate Calcium Ionized Calcium Phosphorus Magnesium Total Bilirubin Direct Bilirubin AST ALT Alkaline Phosphatase Total Protein Albumin Globulin Albumin/Globulin Ratio Procalcitonin Random Cortisol Nasal Screen MRSA (PCR) Blood Parasites ID 11/15/22 11/15/22 11/15/22 15:43 15:43 15:43 WBC 8.84 RBC 2.51 L Hgb 8.4 L Hct 25.5 L MCV 101.6 H MCH 33.5 MCHC 32.9 RDW Std Deviation 70.4 H RDW Coeff of Bradford 19.1 H Plt Count 266 MPV 9.2 L Immature Gran % (Auto) Neut % (Auto) Lymph % (Auto) [place] % (Auto) Eos % (Auto) Baso % (Auto) Neut # (Auto) Lymph # (Auto) [place] # (Auto) Eos # (Auto) Baso # (Auto) Immature Gran # (Auto) Absolute Nucleated RBC Nucleated RBC % (auto) Neutrophils % (Manual) Band Neutrophils % Lymphocytes % (Manual) Prolymphocyte % Reactive Lymphs % (Man) Monocytes % (Manual) Eosinophils % (Manual) Basophils % (Manual) Metamyelocytes % (Man) Myelocytes % (Man) Promyelocytes % (Man) Blast Cells % (Manual) Plasma Cell % (Manual) Other Cells % Nucleated RBC % Neutrophils # (Manual) Band Neutrophils # Total Absolute Neuts Lymphocytes # (Manual) Prolymphocyte # Reactive Lymphs # Total Abs Lymphocytes Monocytes # (Manual) Eosinophils # (Manual) Basophils # (Manual) Metamyelocytes # (Man) Myelocytes # (Manual) Promyelocytes # (Man) Blast Cells # (Man) Plasma Cell # (Manual) Other Cells # Nucleated RBCs # (Man) Hypersegmented Neuts Hyposegmented Neuts Hypogranular Neuts Large Granular Lymphs # Lrg Granular Lymphs Hairy Cells Smudge Cells Toxic Granulation Toxic Vacuolation Dohle Bodies Golden Rods Platelet Estimate Hypogranular Platelets Giant Platelets Platelet Satelliting RBC Morphology Polychromasia Hypochromasia Poikilocytosis Basophilic Stippling Anisocytosis Microcytosis Macrocytosis Spherocytes Pappenheimer Bodies Sickle Cells Target Cells Tear Drop Cells Ovalocytes Stomatocytes Joe-Ainsworth Bodies Echinocytes Acanthocytes (Spur) Rouleaux RBC Agglutinates Schistocytes Sezary Cell PT INR APTT PTT Ratio Fibrinogen VBG pH VBG pCO2 VBG pO2 VBG HCO3 VBG O2 Saturation VBG Base Excess Sodium Potassium Chloride Carbon Dioxide Anion Gap BUN Creatinine Est Cr Clr Drug Dosing Est GFR ( Amer) Est GFR (Non-Af Amer) BUN/Creatinine Ratio Glucose POC Glucose Lactate 1.0 Calcium Ionized Calcium Phosphorus Magnesium Total Bilirubin Direct Bilirubin AST ALT Alkaline Phosphatase Total Protein Albumin Globulin Albumin/Globulin Ratio Procalcitonin Random Cortisol 20.46 Nasal Screen MRSA (PCR) Blood Parasites ID Diagnostic Findings Chest X-Ray 11/15/22 12:27 XR chest 1V portable CLINICAL HISTORY: RLL rhonchi; RLL pneumonia?? COMPARISON STUDY: Chest CT November 09, 2021. PET/CT August 30, 2022. Chest radiograph November 10, 2022. FINDINGS: There is no pneumothorax or pleural effusion. There is no evidence for pulmonary edema. Left axillary surgical clips are noted. Numerous sclerotic skeletal lesions are again noted. Mild hazy right lower lung opacity is present. IMPRESSION: 1. Interval development of hazy right lower lung opacity. This may reflect pneumonia. 2. Otherwise, no significant change in appearance of the chest. ACT 112: Negative or not required by law. Electronically signed by: Gabe Ramirez M.D. 11/15/2022 1:45 PM PG Care Time/CCT Total # of Minutes Spent Total Time Spent with Patient: Total time spent is greater than 50% in coordination of care (as documented) at patient's floor/unit and/or counseling patient: Critical Care Time: Yes Total Critical Care Time: 90 Coding Level of Care Code None Diagnoses Septic shock A41.9; R65.21 RLL pneumonia J18.9 Palmar-plantar erythrodysesthesia L27.1 Metabolic acidosis with normal anion gap and bicarbonate losses E87.20 Anemia D64.9 Lethargy R53.83 Acute kidney injury N17.9 (HFpEF) heart failure with preserved ejection fraction I50.30 NSVT (nonsustained ventricular tachycardia) I47.29 Hyponatremia E87.1 Acute conjunctivitis of both eyes H10.33 Hypomagnesemia E83.42 Peripheral neuropathy G62.9 Malignant neoplasm of breast metastatic to bone C50.919; C79.51 Hypotension I95.9 Hypocalcemia E83.51 GERD (gastroesophageal reflux disease) K21.9 Hyperlipidemia E78.5 Depression F32.9 CAD (coronary artery disease) I25.10 Proximal renal tubular acidosis N25.[address] Z93.3 DM type 2 (diabetes mellitus, type 2) E11.9 History of DVT (deep vein thrombosis) Z86.718 Severe protein-calorie malnutrition E43 Pseudomonas urinary tract infection N39.0; B96.5 Tobacco abuse Z72.0 Additional Codes Critical Care Time - Critical Care Time: Yes ([id number]) Time Spent (min) 90
[2022-11-15] MEDS ORDERED: LACTATED RINGER'S 1,000 ML IV ONE (13:40)
--- NOTE | 2022-11-15 13:47 | XRay Report ---
XR chest 1V portable CLINICAL HISTORY: RLL rhonchi; RLL pneumonia?? COMPARISON STUDY: Chest CT November 09, 2021. PET/CT August 30, 2022. Chest radiograph November 10, 2022. FINDINGS: There is no pneumothorax or pleural effusion. There is no evidence for pulmonary edema. Lef t axillary surgical clips are noted. Numerous sclerotic skeletal lesions are again noted. Mild hazy r ight lower lung opacity is present. IMPRESSION: 1. Interval development of hazy right lower lung opacity. This may reflect pneumonia. 2. Otherwise, no significant change in appearance of the chest. ACT 112: Negative or not required by law. Electronically signed by: Gabe Ramirez M.D. 11/15/2022 1:45 PM
[2022-11-15] MEDS ORDERED: PIPERACILLIN/TAZOBACTAM 4.5 GM in DEXTROSE 5% MINI-B 100 ML IV ONE (14:00)
[2022-11-15] MEDS ORDERED: SODIUM CHLORIDE 0.9% 1,000 ML IV ONE ×2 (15:06→16:41)
[2022-11-15] MEDS ORDERED: ACETAMINOPHEN 1,000 MG/100 ML VIAL IV STA (15:24)
[2022-11-15 16:23] LABS: Hematocrit (blood only) 25.5 % (37.0-47.0); Hemoglobin 8.4 g/dl (12.0-16.0); Mean Corpuscular Hemoglobin 33.5 pg (25.0-34.0); Mean Corpuscular Hgb Conc 32.9 g/dL (32.0-36.0); Mean Corpuscular Volume 101.6 fL (80.0-100.0); Mean Platelet Volume 9.2 fL (9.4-12.4); Platelet Count 266 K/uL (130-400); RDW Coefficient of Variation 19.1 % (11.5-14.5); RDW Standard Deviation 70.4 fL (36.4-46.3); Red Blood Count 2.51 M/uL (4.20-5.40); White Blood Count 8.84 K/ul (4.8-10.8)
--- NOTE | 2022-11-15 18:23 | Critical Care Consultation ---
Date of Consultation November 15, 2022 Assessment & Plan (1) Septic shock: Reason Critically Ill: 66-year-old female with complex past medical history including metastatic breast cancer to bone now presents to the ICU with fever/sepsis from possible pneumonia and hypotension requiring vasopressor support. Neuro - Peripheral neuropathycontinue gabapentin Cardiac - Hypotensionlikely secondary to sepsis. Received 1 L fluid bolus but remained hypotensive. Hesitant to be aggressive with fluid resuscitation with 30 mL/kg per sepsis protocol due to underlying heart failure -Started on Levophed drip to maintain MAP greater than 65. Currently on low- dose and will consider inserting central line if patient requires increasing/high-dose vasopressor support -See ID treatment below -Random cortisol 20. We will hold off on stress dose steroids -Continue with IV fluid resuscitation Diastolic heart failureTTE 11/10 with normal systolic function, grade 1 diastolic dysfunction. Mild mitral regurg moderate tricuspid regurg and elevated RV systolic pressure 40 to 50 mmHg -Lasix on hold due to hypotension/OZIEL -Appears to be hypovolemic on exam and currently undergoing fluid bolus. Goal of euvolemia Nonsustained V. tachwe will evaluated by cardiology. Remains on Coreg and no further intervention however Coreg is currently on hold due to hypotension -No further events. We will continue to monitor on continuous telemetry. Maximize electrolytes. Consider amiodarone drip if this becomes an issue again HLDcontinue statin Respiratory - No history of pulmonary disease. Currently maintaining oxygen saturations on nasal cannula without respiratory distress. Mild hypoxia likely due to underlying diastolic heart failure along with fluid bolus due to hypotension/sepsis. Underlying pneumonia may be contributing and see ID treatment below. We will monitor continuously on pulse ox. Hold on diuresis for now GI - GERDPPI History of colostomysecondary to complications from diverticulitis in 2018 -Continue with Imodium for high stool output. RENAL/LYTES - AKIcreatinine currently 1.19. Appears to be resolved -Continue with IV fluid resuscitation and bicarb drip -Maintain maps greater than 65 -Monitor routine BMPs and replete electrolytes as indicated Metabolic acidosissecondary to high output bicarb losses through colostomy. Lactate remains negative. -pH remains at 7.37 -Nephrology managing. Continue bicarb drip - Foleystrict I's and O's Skin Palmar plantar erythrodysesthesiaaffecting fingers and toes. Thought to be caused by axilla odor which has been stopped ENDO - DM type IImetformin on hold. Continue with sliding scale. ICU hyperglycemic protocol HEME - H&H stable, monitor routine CBC Malignant neoplasm of breast metastatic to bonefollows with Dr. [facility] -Chemo on hold due to plantar erythrodysesthesia ID - Sepsisfever 38.5 and immunocompromised patient. Most likely from developing right lower lobe pneumonia seen on chest x-ray. UTI with pansensitive Klebsiella may be playing a role although she has been treated with Cipro. - Unable to obtain sputum culture as patient has been unable to produce a sample at this time. - Blood cultures currently pending. -Stool bio fire and C. difficile negative -Nasal MRSA positive, started on vancomycin -Antibiotics broadened to Zosyn Conjunctivitiscontinue Cipro eyedrops LINES/IV ACCESS - Peripheral IVs DVT PROPHYLAXIS - SCDs I have personally spent 55 minutes of critical care time in the direct management of this patient. This is a life/limb threatening event. This includes time spent evaluating patient, direct bedside care, chart review, placing ord ers, interpretation of diagnostic studies, discussion with consultants, patient, and family members, as well as other required patient management activities. This time is exclusive of all separately billable procedures, and teaching time and separate from and in addition to any other critical care service time. Thank you for allowing us to participate in the care of this patient. Please refer to my attending physician's documentation for any further recommendations. (2) RLL pneumonia: (3) Pseudomonas urinary tract infection: (4) Severe protein-calorie malnutrition: (5) DM type 2 (diabetes mellitus, type 2): (6) Colostomy in place: (7) NSVT (nonsustained ventricular tachycardia): (8) CAD (coronary artery disease): (9) (HFpEF) heart failure with preserved ejection fraction: (10) Metabolic acidosis with normal anion gap and bicarbonate losses: (11) Acute conjunctivitis of both eyes: (12) Malignant neoplasm of breast metastatic to bone: History of Present Illness Reason for Consultation: Sepsis from probable pulmonary source. Attending Physician: Perez Orellana MD History of Present Illness Patient is a 66-year-old female admitted on November 08, 2022 secondary to weakness and high output ostomy with a nonanion gap metabolic acidosis and hyponatremia. She has significant past medical history for metastatic breast cancer recently on Xeloda. Xeloda has been held secondary to worsening neurop athy and peeling of her feet and hands. The acidosis was reported from hospitalist service to have corrected with a bicarbonate infusion. She has been seen by Dr. Persaud for renal tubular acidosis type II. There is additional history of hyponatremia, diastolic CHF, DVT in July 2021 on systemic anticoagulation. Nephrology has been managing acute kidney injury, and multiple electrolyte abnormalities as well as the acidosis. Cardiology recently evaluated the patient for nonsustained ventricular tachycardia, optimize electrolytes, continue Coreg Seen by orthopedics for a diabetic wound ulcer: Offloading of wound current recommendation General surgery for parastomal hernia Last 24 hours the patient has become hypotensive at times, requiring volume expansion, now febrile and evidence of a early infiltrate on chest x-ray. Patient had recently been on Cipro for a Pseudomonas UTI (pansensitive) Patient now unresponsive to crystalloid bolus and starting on low-dose Levophed to maintain normotension. Allergies Allergy/AdvReac Type Severity Reaction Status Date / Time aspirin Allergy Mild hives Verified 11/08/22 20:27 ibuprofen Allergy Mild hives Verified 11/08/22 20:27 tamoxifen Allergy Unknown temporary Verified 11/08/22 20:27 left eye vision loss Home Medications Medication Instructions Recorded Confirmed Type acetaminophen 500 mg tablet 500 mg PO Q6H PRN Pain 04/13/20 11/08/22 History (Tylenol Extra Strength) paroxetine HCl 30 mg tablet (Paxil) 30 mg PO QAM #90 tabs 09/30/21 11/08/22 Rx furosemide 40 mg tablet 40 mg PO QAM #90 tabs 10/11/21 11/08/22 Rx fulvestrant 250 mg/5 mL 500 mg (10 mL) IM ONCE 3 doses #10 03/14/22 11/08/22 Rx intramuscular syringe mL apixaban 5 mg tablet (Eliquis) 5 mg PO BID DVT #180 tabs 05/01/22 11/08/22 Rx Wheelchair (Manual) #1 ea 07/14/22 11/08/22 Rx losartan 25 mg tablet 12.5 mg PO QPM #15 tabs 07/21/22 11/08/22 Rx metformin 1,000 mg tablet 1,000 mg PO BID #180 tabs 07/24/22 11/08/22 Rx carvedilol 3.125 mg tablet 3.125 mg PO BID #180 tabs 08/18/22 11/08/22 Rx gabapentin 300 mg capsule 300 mg PO .COMPLEX #360 caps 09/04/22 11/08/22 Rx magnesium oxide 400 mg (241.3 mg 800 mg PO BID #90 tabs 10/16/22 11/08/22 Rx magnesium) tablet atorvastatin 10 mg tablet 10 mg PO QPM #90 tabs 10/23/22 11/08/22 Rx ergocalciferol (vitamin D2) 1,250 1,250 mcg PO .COMPLEX #8 caps 10/25/22 11/08/22 Rx mcg (50,000 unit) capsule omeprazole 20 mg capsule,delayed 20 mg PO QAM #90 caps 10/30/22 11/08/22 Rx release potassium chloride 20 mEq 20 meq PO QAM #90 tabs 10/30/22 11/08/22 Rx tablet,extended release amiloride 5 mg tablet 5 mg PO QAM 11/08/22 11/08/22 History calcium carbonate 600 mg-vitamin 1 tab PO DAILY 11/08/22 11/08/22 History D3 10 mcg (400 unit) tablet (Calcium 600 + D(3)) magnesium chloride 64 mg 64 mg PO BID 11/08/22 11/08/22 History (magnesium chloride) tablet,delayed release Patient History Medical History (Updated 11/15/22 @ 18:10 by Perez Orellana MD) (HFpEF) heart failure with preserved ejection fraction Abnormal CT scan recent CT @ [facility] w/ evidence 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 Barkley Chronic systolic CHF (congestive heart failure), NYHA class [address] 2017 (after diverticular perforation complications) Depression Diabetes Difficult intravenous access difficult IV access Left arm Discharge of eye, right Diverticular disease DM type 2 (diabetes mellitus, type 2) NIDDM Encounter for pre-operative examination Hyperlipidemia Left leg DVT started on eliquis. repeat doppler in 07/2021. Lumbar disc herniation with radiculopathy LV dysfunction Metastatic breast cancer hx chemo, radiation + surgery Morbid obesity PAC (premature atrial contraction) h/o PVC (premature ventricular contraction) h/o Surgical History H/O bilateral mastectomy denies limb restriction History of cardiac cath 2017 - [place] - cardiomyopathy - no stents/angioplasty History of humerus fracture (03/26/20) with open reduction and internal fixation due to pathological fracture (Dr. Gillette) History of hysterectomy History of intestinal surgery History of lumbar laminectomy History of surgery for malignant neoplasm 2017 removal of substernal mass + radiation Family History Mother Breast cancer Sister Breast cancer Father Myocardial infarction Prostate cancer Other Cancer Heart disease Hypertension Denies family history of Ovarian cancer Colorectal cancer Social History Smoking Status: Current every day smoker Tobacco Type: Cigarettes Age Started Using Tobacco: 15; Cigarettes Per Day: 3/4 pack per day; Second Hand Exposure: No; Do You Dip or Chew Tobacco: No; Tobacco Cessation Education Requested by Patient: No Hx Alcohol Use: No Hx Substance Use: No Preferred Language: Telugu Communication Ability: Effective Visual Impairment: No 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 Pressure Vessels Required: No Beliefs That Will Affect Care: None marital status: Single Current Living Situation: Alone Current Living Situation Comment: with caregivers current occupational status: retired How many Children do You have: 0 Other Information That Helps Us Care for You: No Feels Safe at Home: Yes Safety Concerns: Feels Safe At This Time Childhood Exposure to Second-Hand Smoke: No Diet: regular caffeine: Yes Dental Care, Regularly: Yes Physical Activity Frequency: Does not Exercise Seatbelt Use: never Sunscreen Use: Yes Assistive Devices: Cane and Walker Review of Systems Review of Systems: Reports feeling weak Prior to hospitalization. She reports productive cough with thick yellow sputum, no hemoptysis. She denies any headache, dizziness, changes in vision, sore throat, shortness of breath, chest pain or palpitations, abdominal pain, nausea vomiting, swelling in hands or feet, burning with urination. Physical Exam Constitutional: cooperative and comfortable; no acute distress Eyes: PERRL, conjunctivae normal, anicteric sclerae ENMT: external ear and nose normal, oropharynx normal Neck: trachea midline, no thyromegaly Respiratory: normal respiratory effort, lungs clear to auscultation Cardiovascular: RRR, no murmur, no edema Heart Sounds: normal S1 and normal S2 Vessels: no JVD Extremities: no edema Gastrointestinal (Abdomen): normal bowel sounds, soft, nontender, no hepatosplenomegaly Ostomy in the left upper quadrant Musculoskeletal: no cyanosis or clubbing, extremities motor strength 5/5 Skin: Erythematous with peeling skin to the tips of all fingers x10 in all toes x10 Neurologic: PERRL, EOMI, accommodation nl, no face palsy, no dysarthria Psychiatric: A+Ox3, euthymic affect Genitourinary: Indwelling Rice catheter present. Urine concentrated dark yellow Results & Data Results & Data Vital Signs (Past 12 Hours) Vital Signs Temp Pulse Pulse Resp BP Pulse Ox O2 Del Method 11/15/22 17:53 37.1 C 92 H 20 73/40 L 90 Nasal Cannula 11/15/22 15:28 38.5 C H 95 H 20 78/43 L 94 Nasal Cannula 11/15/22 15:25 36.3 C L 58 L 18 96 Nasal Cannula 11/15/22 15:19 57 L 11/15/22 15:19 Nasal Cannula 11/15/22 11:36 37.5 C 96 H 17 89/56 L 99 Nasal Cannula 11/15/22 08:17 98 H 96/57 L 11/15/22 07:56 99 H 11/15/22 07:39 37.1 C 101 H 16 87/49 L 100 Nasal Cannula 11/15/22 07:25 Nasal Cannula O2 Flow Rate 11/15/22 17:53 3 11/15/22 15:28 3 11/15/22 15:25 2 11/15/22 15:19 11/15/22 15:19 2 11/15/22 11:36 3 11/15/22 08:17 11/15/22 07:56 11/15/22 07:39 3 11/15/22 07:25 3 Coding Level of Care Code 48042 CRITICAL CARE 1ST 30-74M Diagnoses Septic shock A41.9; R65.21 RLL pneumonia J18.9 Pseudomonas urinary tract infection N39.0; B96.5 Severe protein-calorie malnutrition E43 DM type 2 (diabetes mellitus, type 2) E11.[address] Z93.3 NSVT (nonsustained ventricular tachycardia) I47.29 CAD (coronary artery disease) I25.10 (HFpEF) heart failure with preserved ejection fraction I50.30 Metabolic acidosis with normal anion gap and bicarbonate losses E87.20 Acute conjunctivitis of both eyes H10.33 Malignant neoplasm of breast metastatic to bone C50.919; C79.51
[2022-11-15] MEDS ORDERED: SODIUM CHLORIDE 0.9% 500 ML IV ONE (18:55)
[2022-11-15] MEDS ORDERED: PLASMA-LYTE A 500 ML IV ONE (20:14)
[2022-11-15] MEDS ORDERED: STAT IV Infusion **Titration per Protocol STA (20:31)
[2022-11-15] MEDS: NOREPINEPHRINE/D5W 4 MG/250 ML PLCT IV SCH (20:42)
[2022-11-15 20:43] LABS: Fibrinogen 422 mg/dl (184-400); INR 2.5 (0.9-1.1); Partial Thromboplastin Ratio 1.7; Prothrombin Time 26.2 Seconds (9.0-12.0)
[2022-11-15 20:44] LABS: Base Excess VBG -3.9 mEq/L; HCO3 VBG 21 mmol/L; Oxygen Saturation VBG 95.4 %; PCO2 VBG 36 mmHg (38-50); PO2 VBG 67 mmHg; pH VBG 7.37 (7.36-7.41)
[2022-11-15 20:45] LABS: Partial Thromboplastin Time 46.7 Seconds (21.0-31.0)
[2022-11-15] MEDS: PIPERACILLIN/TAZOBACTAM 4.5 GM in DEXTROSE 5% MINI-B 100 ML IV SCH (20:52)
[2022-11-15 21:08] LABS: Albumin Globulin Ratio 1.4 (0.9-2); Albumin Level 2.2 gm/dl (3.4-5.0); BUN Creatinine Ratio 16.8 (10-20); Bilirubin,Total 0.9 mg/dl (0.2-1.0); Calcium 5.9 mg/dl (8.6-10.3); Est GFR (African American) 54.7 ml/min; Est GFR (Non-African American) 47.2 ml/min; Globulin 1.6 gm/dl (2.5-4.0); Magnesium 1.6 mg/dl (1.7-2.4); Potassium 3.6 mmol/L (3.5-5.1); Total Protein 3.8 gm/dl (6.0-8.3)
[2022-11-15] MEDS ORDERED: POTASSIUM PHOS 3 MMOL/1 ML INFUSION IV STA (21:20)
[2022-11-15] MEDS ORDERED: CALCIUM CHLORIDE 10% 1,000 MG in DEXTROSE 5% 50 ML IV STA (21:20)
[2022-11-15] MEDS ORDERED: CALCIUM CHLORIDE 10% 1,000 MG in DEXTROSE 5% 50 ML IV ONE (21:21)
[2022-11-15] MEDS ORDERED: POTASSIUM PHOSPHATE 21 MMOL in SODIUM CHLORIDE 0.9% 500 ML IV ONE (21:30)
[2022-11-15] MEDS: MAGNESIUM SULFATE / D5W 1 GM/100 ML BAG IV SCH ×2 (21:41→23:42)
[2022-11-15] MEDS: CALCIUM GLUCONATE 10% 1,000 MG in NS X2 BAGS IV SCH ×2 (21:49→22:05)
[2022-11-16] MEDS: MAGNESIUM SULFATE / D5W 1 GM/100 ML BAG IV SCH (01:43)
[2022-11-16] MEDS ORDERED: VANCOMYCIN CONSULT ACTIVE PRN (02:13)
[2022-11-16] MEDS ORDERED: VANCOMYCIN HCL 1,500 MG in SODIUM CHLORIDE 0.9% 500 ML IV ONE (02:45)
[2022-11-16] MEDS: PIPERACILLIN/TAZOBACTAM 4.5 GM in DEXTROSE 5% MINI-B 100 ML IV SCH ×3 (04:03→20:15)
[2022-11-16 04:19] LABS: Basophils # (auto) 0.03 K/uL (0.00-0.20); Basophils % (auto) 0.4 %; Eosinophils # (auto) 0.79 K/uL (0.00-0.50); Eosinophils % (auto) 9.8 %; Hematocrit (blood only) 27.5 % (37.0-47.0); Immature Granulocytes # (auto) 0.27 K/uL (0.01-0.20); Immature Granulocytes % (auto) 3.4 %; Lymphocytes # (auto) 0.75 K/uL (1.20-3.40); Lymphocytes % (auto) 9.3 %; Mean Corpuscular Hemoglobin 33.7 pg (25.0-34.0); Mean Corpuscular Hgb Conc 32.7 g/dL (32.0-36.0); Monocytes # (auto) 0.81 K/uL (0.11-0.59); Monocytes % (auto) 10.1 %; Neutrophils # (auto) 5.39 K/uL (1.40-6.50); Platelet Count 266 K/uL (130-400); RDW Coefficient of Variation 19.1 % (11.5-14.5); RDW Standard Deviation 70.4 fL (36.4-46.3); Red Blood Count 2.67 M/uL (4.20-5.40); White Blood Count 8.04 K/ul (4.8-10.8)
[2022-11-16 04:39] LABS: Albumin Level 2.4 gm/dl (3.4-5.0); BUN Creatinine Ratio 14.3 (10-20); Bilirubin Direct 0.4 mg/dl (0-0.2); Bilirubin,Total 0.9 mg/dl (0.2-1.0); Calcium 6.5 mg/dl (8.6-10.3); Est GFR (African American) 58.9 ml/min; Est GFR (Non-African American) 50.8 ml/min; Magnesium 2.4 mg/dl (1.7-2.4); Phosphorus 3.3 mg/dl (2.5-4.9); Potassium 3.8 mmol/L (3.5-5.1); Total Protein 4.3 gm/dl (6.0-8.3)
[2022-11-16 04:49] LABS: Prothrombin Time 21.4 Seconds (9.0-12.0)
[2022-11-16] MEDS ORDERED: STAT IV STA ×2 (06:12→10:40)
[2022-11-16] MEDS: POTASSIUM CHLORIDE / WTR 10 MEQ/100 ML PLCT IV SCH ×2 (06:28→07:34)
[2022-11-16] MEDS: CALCIUM GLUCONATE 10% 1,000 MG in SODIUM CHLOR 0.9% MINI-B 50 ML IV SCH ×2 (06:29→06:49)
[2022-11-16] MEDS ORDERED: ICU Protocol for HYPERglycemia SCH (07:30)
[2022-11-16] MEDS: CALCITRIOL 0.25 MCG CAPSULE PO SCH (07:38)
[2022-11-16] MEDS: CIPROFLOXACIN HCL 0.3% OP SOLN 2.5 ML BTL OPB SCH ×4 (07:39→20:12)
[2022-11-16] MEDS: ERGOCALCIFEROL 50,000 UNITS 1250 MCG CAP PO SCH (07:41)
[2022-11-16] MEDS: LOPERAMIDE LIQUID 120 ML BOTTLE PO SCH ×4 (07:42→20:11)
[2022-11-16] MEDS: PANTOprazole 40 MG TAB PO SCH (07:43)
[2022-11-16] MEDS: PARoxetine HCL 20 MG TAB PO SCH (07:43)
[2022-11-16] MEDS: NICOTINE 14 MG/24 HR PATCH TD SCH (07:43)
[2022-11-16] MEDS: SODIUM BICARBONATE 650 MG TAB PO SCH ×2 (07:45→20:11)
[2022-11-16] MEDS: POTASSIUM CHLORIDE CRTAB 20 MEQ TABCR PO SCH (07:45)
[2022-11-16] MEDS: INSULIN ASPART PER UNIT CHARGE SC SCH ×4 (08:10→20:37)
--- NOTE | 2022-11-16 09:54 | Critical Care Progress Note ---
Date of Service November 16, 2022 Assessment & Plan (1) Septic shock: Plan: Reason Critically Ill: 66-year-old female with complex past medical history including metastatic breast cancer to bone now presents to the ICU with fever/sepsis from possible pneumonia and hypotension requiring vasopressor support. Neuro - Peripheral neuropathycontinue gabapentin Cardiac - Hypotensionlikely secondary to sepsis. Received 1 L fluid bolus but remained hypotensive. Hesitant to be aggressive with fluid resuscitation with 30 mL/kg per sepsis protocol due to underlying heart failure -Started on Levophed drip to maintain MAP greater than 65. Currently on low- dose and will consider inserting central line if patient requires increasing/high-dose vasopressor support -See ID treatment below -Random cortisol 20. We will hold off on stress dose steroids -Continue with IV fluid resuscitation Diastolic heart failureTTE 11/10 with normal systolic function, grade 1 diastolic dysfunction. Mild mitral regurg moderate tricuspid regurg and elevated RV systolic pressure 40 to 50 mmHg -Lasix on hold due to hypotension/OZIEL -Appears to be hypovolemic on exam and currently undergoing fluid bolus. Goal of euvolemia Nonsustained V. tachwe will evaluated by cardiology. Remains on Coreg and no further intervention however Coreg is currently on hold due to hypotension -No further events. We will continue to monitor on continuous telemetry. Maximize electrolytes. Consider amiodarone drip if this becomes an issue again HLDcontinue statin Respiratory - No history of pulmonary disease. Currently maintaining oxygen saturations on nasal cannula without respiratory distress. Mild hypoxia likely due to underlying diastolic heart failure along with fluid bolus due to hypotension/sepsis. Underlying pneumonia may be contributing and see ID treatment below. We will monitor continuously on pulse ox. Hold on diuresis for now GI - GERDPPI History of colostomysecondary to complications from diverticulitis in 2018 -Continue with Imodium for high stool output. RENAL/LYTES - AKIcreatinine currently 1.19. Appears to be resolved -Continue with IV fluid resuscitation and bicarb drip -Maintain maps greater than 65 -Monitor routine BMPs and replete electrolytes as indicated Metabolic acidosissecondary to high output bicarb losses through colostomy. Lactate remains negative. -pH remains at 7.37 -Nephrology managing. Continue bicarb drip - Foleystrict I's and O's Skin Palmar plantar erythrodysesthesiaaffecting fingers and toes. Thought to be caused by axilla odor which has been stopped ENDO - DM type IImetformin on hold. Continue with sliding scale. ICU hyperglycemic protocol HEME - H&H stable, monitor routine CBC Malignant neoplasm of breast metastatic to [facility]follow[facility] -Chemo on hold due to plantar erythrodysesthesia ID - Sepsisfever 38.5 and immunocompromised patient. Most likely from developing right lower lobe pneumonia seen on chest x-ray. UTI with pansensitive Klebsiella may be playing a role although she has been treated with Cipro. - Unable to obtain sputum culture as patient has been unable to produce a sample at this time. - Blood cultures currently pending. -Stool bio fire and C. difficile negative -Nasal MRSA positive, started on vancomycin -Antibiotics broadened to Zosyn Conjunctivitiscontinue Cipro eyedrops LINES/IV ACCESS - Peripheral IVs DVT PROPHYLAXIS - SCDs I have personally spent 55 minutes of critical care time in the direct management of this patient. This is a life/limb threatening event. This includes time spent evaluating patient, direct bedside care, chart review, placing orders, interpretation of diagnostic studies, discussion with consultants, patient, and family members, as well as other required patient management activities. This time is exclusive of all separately billable procedures, and teaching time and separate from and in addition to any other critical care service time. Thank you for allowing us to participate in the care of this patient. Please refer to my attending physician's documentation for any further recommendations. (2) RLL pneumonia: (3) Pseudomonas urinary tract infection: (4) Severe protein-calorie malnutrition: (5) DM type 2 (diabetes mellitus, type 2): (6) Colostomy in place: (7) NSVT (nonsustained ventricular tachycardia): (8) CAD (coronary artery disease): (9) (HFpEF) heart failure with preserved ejection fraction: (10) Metabolic acidosis with normal anion gap and bicarbonate losses: (11) Acute conjunctivitis of both eyes: (12) Malignant neoplasm of breast metastatic to bone: Admission and Anticipated Discharge Date Admission Date: November 08, 2022 Results & Data Results & Data Vital Signs (Past 12 Hours) Vital Signs Temp Pulse Resp BP Pulse Ox O2 Del Method O2 Flow Rate 11/16/22 09:15 98/53 L 11/16/22 09:15 84 15 96 11/16/22 09:00 103 H 28 H 96 11/16/22 09:00 90/42 L 11/16/22 08:45 96/43 L 11/16/22 08:45 89 15 92 11/16/22 08:30 86 16 93 11/16/22 08:30 88/42 L 11/16/22 08:15 93/49 L 11/16/22 08:15 87 19 93 11/16/22 08:00 89 17 90 11/16/22 08:00 78/59 L 11/16/22 07:45 94/47 L 11/16/22 07:45 92 H 28 H 87 L 11/16/22 07:30 89 16 93 11/16/22 07:30 99/62 L 11/16/22 07:15 99/49 L 11/16/22 07:15 83 17 95 11/16/22 07:00 80 22 94 11/16/22 07:00 112/59 L 11/16/22 07:25 36.7 C 11/16/22 06:45 80 17 92 11/16/22 06:45 104/52 L 11/16/22 06:30 81 15 94 11/16/22 06:30 105/56 L 11/16/22 06:15 82 20 96 11/16/22 06:15 90/41 L 11/16/22 06:00 81 19 96 11/16/22 06:00 90/48 L 11/16/22 05:45 82 19 93 11/16/22 05:45 99/48 L 11/16/22 05:30 76 25 H 97 11/16/22 05:30 78/50 L 11/16/22 05:15 82 16 95 11/16/22 05:15 85/43 L 11/16/22 05:00 83 21 96 11/16/22 05:00 95/50 L 11/16/22 04:45 83 21 95 11/16/22 04:45 94/46 L 11/16/22 04:30 74 26 H 95 11/16/22 04:30 81/53 L 11/16/22 04:15 83 16 92 11/16/22 04:15 92/51 L 11/16/22 04:05 96/54 L 11/16/22 04:05 84 14 93 11/16/22 04:00 82 13 93 Nasal Cannula 4 11/16/22 03:45 80 22 94 11/16/22 03:45 94/49 L 11/16/22 03:30 80 21 95 11/16/22 03:30 95/62 L 11/16/22 03:15 78 13 96 11/16/22 03:15 97/47 L 11/16/22 03:00 77 21 98 11/16/22 03:00 104/51 L 11/16/22 02:45 77 21 99 11/16/22 02:45 107/49 L 11/16/22 02:30 82 16 97 11/16/22 02:15 81 19 97 11/16/22 02:15 90/52 L 11/16/22 00:00 36.8 C 11/16/22 04:00 36.6 C 11/16/22 02:00 73 19 96 11/16/22 02:00 101/47 L 11/16/22 01:45 74 15 97 11/16/22 01:45 102/49 L 11/16/22 01:30 80 20 98 11/16/22 01:30 106/54 L 11/16/22 01:15 76 19 97 11/16/22 01:15 103/54 L 11/16/22 01:00 80 21 94 11/16/22 01:00 97/53 L 11/16/22 00:45 76 22 96 11/16/22 00:45 103/52 L 11/16/22 00:30 86 17 95 11/16/22 00:30 108/59 L 11/16/22 00:15 78 18 94 11/16/22 00:15 102/55 L 11/16/22 00:00 79 17 93 Nasal Cannula 4 11/16/22 00:00 104/60 11/15/22 23:45 77 19 91 11/15/22 23:45 96/45 L 11/15/22 23:30 79 17 93 11/15/22 23:30 96/52 L 11/15/22 23:15 79 16 94 11/15/22 23:15 98/47 L 11/15/22 23:00 90 21 95 11/15/22 23:00 105/47 L 11/15/22 22:45 82 22 92 11/15/22 22:45 91/46 L 11/15/22 23:24 81 11/15/22 22:30 86 24 92 11/15/22 22:30 107/50 L 11/15/22 22:15 84 29 H 94 11/15/22 22:15 105/46 L 11/15/22 22:00 86 18 97 11/15/22 22:00 97/48 L 11/15/22 21:55 89 16 95 11/15/22 21:55 91/43 L Coding Level of Care Code 88378 CRITICAL CARE 1ST 30-74M Diagnoses Septic shock A41.9; R65.21 RLL pneumonia J18.9 Pseudomonas urinary tract infection N39.0; B96.5 Severe protein-calorie malnutrition E43 DM type 2 (diabetes mellitus, type 2) E11.[address] Z93.3 NSVT (nonsustained ventricular tachycardia) I47.29 CAD (coronary artery disease) I25.10 (HFpEF) heart failure with preserved ejection fraction I50.30 Metabolic acidosis with normal anion gap and bicarbonate losses E87.20 Acute conjunctivitis of both eyes H10.33 Malignant neoplasm of breast metastatic to bone C50.919; C79.51
[2022-11-16] MEDS: MICONAZOLE NITRATE POWDER 85 GM EXT SCH ×2 (10:00→20:12)
[2022-11-16] MEDS ORDERED: PLASMA-LYTE A 1,000 ML IV SCH (10:00)
--- NOTE | 2022-11-16 10:40 | Nephrology Progress Note ---
Date of Service November 16, 2022 Assessment & Plan (1) Acute kidney injury: Plan: Prerenal due to increased ostomy output. Creatinine relatively stable. Volume status acceptable. Encourage postitive fluid balance. 1 L Normosol and 50 g IV albumin to be provided this AM. Document strict I/O's. Medications appropriate for kidney function. (2) Hypomagnesemia: Plan: GI and renal losses. Monitor daily. Hold amiloride. (3) Hypocalcemia: Plan: Continue calcitriol 1 mcg daily. Ergocalciferol 14805 units twice weekly. Calcium 600 mg + D3. Calcium gluconate 1 gram IV provided this AM. Recheck tomorrow AM. (4) Metabolic acidosis with normal anion gap and bicarbonate losses: Plan: Due to ostomy output and pRTA. IV replacement provided. (5) Vitamin D deficiency: Plan: Ergocalciferol twice weekly. Calcitriol 1 mcg daily. (6) Proximal renal tubular acidosis: Plan: Hold amiloride. Medication held due to volume status. (7) High output ileostomy: Plan: Continue isotonic fluids to encourage slightly positive fluid balance. Admission and Anticipated Discharge Date Admission Date: November 08, 2022 Subjective Transferred to the ICU overnight for hypotension requiring vasopressor support. Febrile to 38. Yamel was resting comfortably in bed this morning. She remains on levo at 0.03. 1/2NS+NaHCO3 infusing. Liquid ostomy output. Denies shortness of breath. No chest pain or palpitations. Stable on tele. I discussed the plan of care with Dr. Barkley, Dr. Miranda and the ICU team this AM. Review of Systems Review of Systems: All systems reviewed & are unremarkable except as noted in HPI & below Physical Exam Constitutional: + thin and + frail appearing; no acute distress Eyes: + anicteric sclerae; no corneal abnormality ENMT: Mouth: no oral mucosal abnormality and oral mucous membranes not dry Neck: normal visual inspection and trachea midline Respiratory: normal respiratory effort Auscultation: lungs clear to auscultation bilaterally Cardiovascular: Rate/Rhythm: regular rate Heart Sounds: normal S1 and normal S2 Extremities: no edema Musculoskeletal: Extremities: no cyanosis and no clubbing Skin: + turgor decreased and + ecchymosis; no jaundice Neurologic: Motor/Sensory: no tremor and no asterixis Psychiatric: Orientation: alert and oriented x 3 Results & Data Vital Signs (Past 12 Hours) Vital Signs Temp Pulse Resp BP Pulse Ox O2 Del Method O2 Flow Rate 11/16/22 09:15 98/53 L 11/16/22 09:15 84 15 96 11/16/22 09:00 103 H 28 H 96 11/16/22 09:00 90/42 L 11/16/22 08:45 96/43 L 11/16/22 08:45 89 15 92 11/16/22 08:30 86 16 93 11/16/22 08:30 88/42 L 11/16/22 08:15 93/49 L 11/16/22 08:15 87 19 93 11/16/22 08:00 89 17 90 11/16/22 08:00 78/59 L 11/16/22 07:45 94/47 L 11/16/22 07:45 92 H 28 H 87 L 11/16/22 07:30 89 16 93 11/16/22 07:30 99/62 L 11/16/22 07:15 99/49 L 11/16/22 07:15 83 17 95 11/16/22 07:00 80 22 94 11/16/22 07:00 112/59 L 11/16/22 07:25 36.7 C 11/16/22 06:45 80 17 92 11/16/22 06:45 104/52 L 11/16/22 06:30 81 15 94 11/16/22 06:30 105/56 L 11/16/22 06:15 82 20 96 11/16/22 06:15 90/41 L 11/16/22 06:00 81 19 96 11/16/22 06:00 90/48 L 11/16/22 05:45 82 19 93 11/16/22 05:45 99/48 L 11/16/22 05:30 76 25 H 97 11/16/22 05:30 78/50 L 11/16/22 05:15 82 16 95 11/16/22 05:15 85/43 L 11/16/22 05:00 83 21 96 11/16/22 05:00 95/50 L 11/16/22 04:45 83 21 95 11/16/22 04:45 94/46 L 11/16/22 04:30 74 26 H 95 11/16/22 04:30 81/53 L 11/16/22 04:15 83 16 92 11/16/22 04:15 92/51 L 11/16/22 04:05 96/54 L 11/16/22 04:05 84 14 93 11/16/22 04:00 82 13 93 Nasal Cannula 4 11/16/22 03:45 80 22 94 11/16/22 03:45 94/49 L 11/16/22 03:30 80 21 95 11/16/22 03:30 95/62 L 11/16/22 03:15 78 13 96 11/16/22 03:15 97/47 L 11/16/22 03:00 77 21 98 11/16/22 03:00 104/51 L 11/16/22 02:45 77 21 99 11/16/22 02:45 107/49 L 11/16/22 02:30 82 16 97 11/16/22 02:15 81 19 97 11/16/22 02:15 90/52 L 11/16/22 00:00 36.8 C 11/16/22 04:00 36.6 C 11/16/22 02:00 73 19 96 11/16/22 02:00 101/47 L 11/16/22 01:45 74 15 97 11/16/22 01:45 102/49 L 11/16/22 01:30 80 20 98 11/16/22 01:30 106/54 L 11/16/22 01:15 76 19 97 11/16/22 01:15 103/54 L 11/16/22 01:00 80 21 94 11/16/22 01:00 97/53 L 11/16/22 00:45 76 22 96 11/16/22 00:45 103/52 L 11/16/22 00:30 86 17 95 11/16/22 00:30 108/59 L 11/16/22 00:15 78 18 94 11/16/22 00:15 102/55 L 11/16/22 00:00 79 17 93 Nasal Cannula 4 11/16/22 00:00 104/60 11/15/22 23:45 77 19 91 11/15/22 23:45 96/45 L 11/15/22 23:30 79 17 93 11/15/22 23:30 96/52 L 11/15/22 23:15 79 16 94 11/15/22 23:15 98/47 L 11/15/22 23:00 90 21 95 11/15/22 23:00 105/47 L 11/15/22 22:45 82 22 92 11/15/22 22:45 91/46 L 11/15/22 23:24 81 Laboratory Results Laboratory Results - last 24 hr 11/15/22 11/15/22 11/15/22 11:58 15:43 15:43 WBC 8.84 RBC 2.51 L Hgb 8.4 L Hct 25.5 L MCV 101.6 H MCH 33.5 MCHC 32.9 RDW Std Deviation 70.4 H RDW Coeff of [place] 19.1 H Plt Count 266 MPV 9.2 L Immature Gran % (Auto) Neut % (Auto) Lymph % (Auto) [place] % (Auto) Eos % (Auto) Baso % (Auto) Neut # (Auto) Lymph # (Auto) [place] # (Auto) Eos # (Auto) Baso # (Auto) Immature Gran # (Auto) PT INR APTT PTT Ratio Fibrinogen VBG pH VBG pCO2 VBG pO2 VBG HCO3 VBG O2 Saturation VBG Base Excess Sodium Potassium Chloride Carbon Dioxide Anion Gap BUN Creatinine Est Cr Clr Drug Dosing Est GFR ( Amer) Est GFR (Non-Af Amer) BUN/Creatinine Ratio Glucose POC Glucose 208 H Lactate 1.0 Calcium Ionized Calcium Phosphorus Magnesium Total Bilirubin Direct Bilirubin AST ALT Alkaline Phosphatase Total Protein Albumin Globulin Albumin/Globulin Ratio Procalcitonin Random Cortisol Nasal Screen MRSA (PCR) 11/15/22 11/15/22 11/15/22 15:43 17:07 19:27 WBC RBC Hgb Hct MCV MCH MCHC RDW Std Deviation RDW Coeff of [place] Plt Count MPV Immature Gran % (Auto) Neut % (Auto) Lymph % (Auto) [place] % (Auto) Eos % (Auto) Baso % (Auto) Neut # (Auto) Lymph # (Auto) [place] # (Auto) Eos # (Auto) Baso # (Auto) Immature Gran # (Auto) PT 26.2 H INR 2.5 H APTT 46.7 H* PTT Ratio 1.7 Fibrinogen 422 H VBG pH VBG pCO2 VBG pO2 VBG HCO3 VBG O2 Saturation VBG Base Excess Sodium Potassium Chloride Carbon Dioxide Anion Gap BUN Creatinine Est Cr Clr Drug Dosing Est GFR ( Amer) Est GFR (Non-Af Amer) BUN/Creatinine Ratio Glucose POC Glucose 157 H Lactate Calcium Ionized Calcium Phosphorus Magnesium Total Bilirubin Direct Bilirubin AST ALT Alkaline Phosphatase Total Protein Albumin Globulin Albumin/Globulin Ratio Procalcitonin Random Cortisol 20.46 Nasal Screen MRSA (PCR) 11/15/22 11/15/22 11/15/22 19:44 20:27 20:27 WBC RBC Hgb Hct MCV MCH MCHC RDW Std Deviation RDW Coeff of [place] Plt Count MPV Immature Gran % (Auto) Neut % (Auto) Lymph % (Auto) [place] % (Auto) Eos % (Auto) Baso % (Auto) Neut # (Auto) Lymph # (Auto) [place] # (Auto) Eos # (Auto) Baso # (Auto) Immature Gran # (Auto) PT INR APTT PTT Ratio Fibrinogen VBG pH VBG pCO2 VBG pO2 VBG HCO3 VBG O2 Saturation VBG Base Excess Sodium 132 L Potassium 3.6 Chloride 107 Carbon Dioxide 21 Anion Gap 4 BUN 20 Creatinine 1.19 Est Cr Clr Drug Dosing 47.0 Est GFR ( Amer) 54.7 Est GFR (Non-Af Amer) 47.2 BUN/Creatinine Ratio 16.8 Glucose 127 H POC Glucose 151 H Lactate 0.8 Calcium 5.9 L* Ionized Calcium Phosphorus 2.0 L Magnesium 1.6 L Total Bilirubin 0.9 Direct Bilirubin AST 12 L ALT 3 L Alkaline Phosphatase 37 Total Protein 3.8 L Albumin 2.2 L Globulin 1.6 L Albumin/Globulin Ratio 1.4 Procalcitonin Random Cortisol Nasal Screen MRSA (PCR) 11/15/22 11/15/22 11/15/22 20:27 20:27 20:27 WBC RBC Hgb Hct MCV MCH MCHC RDW Std Deviation RDW Coeff of [place] Plt Count MPV Immature Gran % (Auto) Neut % (Auto) Lymph % (Auto) [place] % (Auto) Eos % (Auto) Baso % (Auto) Neut # (Auto) Lymph # (Auto) [place] # (Auto) Eos # (Auto) Baso # (Auto) Immature Gran # (Auto) PT INR APTT PTT Ratio Fibrinogen VBG pH 7.37 VBG pCO2 36 L VBG pO2 67 VBG HCO3 21 VBG O2 Saturation 95.4 VBG Base Excess -3.9 Sodium Potassium Chloride Carbon Dioxide Anion Gap BUN Creatinine Est Cr Clr Drug Dosing Est GFR ( Amer) Est GFR (Non-Af Amer) BUN/Creatinine Ratio Glucose POC Glucose Lactate Calcium Ionized Calcium 0.93 L Phosphorus Magnesium Total Bilirubin Direct Bilirubin AST ALT Alkaline Phosphatase Total Protein Albumin Globulin Albumin/Globulin Ratio Procalcitonin 0.81 H Random Cortisol Nasal Screen MRSA (PCR) 11/15/22 11/15/22 11/16/22 20:58 Unknown 04:04 WBC RBC Hgb Hct MCV MCH MCHC RDW Std Deviation RDW Coeff of [place] Plt Count MPV Immature Gran % (Auto) Neut % (Auto) Lymph % (Auto) [place] % (Auto) Eos % (Auto) Baso % (Auto) Neut # (Auto) Lymph # (Auto) [place] # (Auto) Eos # (Auto) Baso # (Auto) Immature Gran # (Auto) PT INR APTT PTT Ratio Fibrinogen VBG pH VBG pCO2 VBG pO2 VBG HCO3 VBG O2 Saturation VBG Base Excess Sodium 134 L Potassium 3.8 Chloride 105 Carbon Dioxide 24 Anion Gap 5 BUN 16 Creatinine 1.12 Est Cr Clr Drug Dosing 50.0 Est GFR ( Amer) 58.9 Est GFR (Non-Af Amer) 50.8 BUN/Creatinine Ratio 14.3 Glucose 140 H POC Glucose 118 H Lactate Calcium 6.5 L Ionized Calcium Phosphorus 3.3 D Magnesium 2.4 Total Bilirubin 0.9 Direct Bilirubin 0.4 H AST 16 ALT 4 L Alkaline Phosphatase 43 Total Protein 4.3 L Albumin 2.4 L Globulin Albumin/Globulin Ratio Procalcitonin Random Cortisol Nasal Screen MRSA (PCR) Positive A 11/16/22 11/16/22 11/16/22 04:04 04:04 04:04 WBC 8.04 RBC 2.67 L Hgb 9.0 L Hct 27.5 L MCV 103.0 H MCH 33.7 MCHC 32.7 RDW Std Deviation 70.4 H RDW Coeff of [place] 19.1 H Plt Count 266 MPV 9.0 L Immature Gran % (Auto) 3.4 Neut % (Auto) 67.0 Lymph % (Auto) 9.3 [place] % (Auto) 10.1 Eos % (Auto) 9.8 Baso % (Auto) 0.4 Neut # (Auto) 5.39 Lymph # (Auto) 0.75 L [place] # (Auto) 0.81 H Eos # (Auto) 0.79 H Baso # (Auto) 0.03 Immature Gran # (Auto) 0.27 H PT 21.4 H INR 2.0 H APTT PTT Ratio Fibrinogen VBG pH VBG pCO2 VBG pO2 VBG HCO3 VBG O2 Saturation VBG Base Excess Sodium Potassium Chloride Carbon Dioxide Anion Gap BUN Creatinine Est Cr Clr Drug Dosing Est GFR ( Amer) Est GFR (Non-Af Amer) BUN/Creatinine Ratio Glucose POC Glucose Lactate Calcium Ionized Calcium 1.00 L Phosphorus Magnesium Total Bilirubin Direct Bilirubin AST ALT Alkaline Phosphatase Total Protein Albumin Globulin Albumin/Globulin Ratio Procalcitonin Random Cortisol Nasal Screen MRSA (PCR) 11/16/22 07:21 WBC RBC Hgb Hct MCV MCH MCHC RDW Std Deviation RDW Coeff of [place] Plt Count MPV Immature Gran % (Auto) Neut % (Auto) Lymph % (Auto) [place] % (Auto) Eos % (Auto) Baso % (Auto) Neut # (Auto) Lymph # (Auto) [place] # (Auto) Eos # (Auto) Baso # (Auto) Immature Gran # (Auto) PT INR APTT PTT Ratio Fibrinogen VBG pH VBG pCO2 VBG pO2 VBG HCO3 VBG O2 Saturation VBG Base Excess Sodium Potassium Chloride Carbon Dioxide Anion Gap BUN Creatinine Est Cr Clr Drug Dosing Est GFR ( Amer) Est GFR (Non-Af Amer) BUN/Creatinine Ratio Glucose POC Glucose 128 H Lactate Calcium Ionized Calcium Phosphorus Magnesium Total Bilirubin Direct Bilirubin AST ALT Alkaline Phosphatase Total Protein Albumin Globulin Albumin/Globulin Ratio Procalcitonin Random Cortisol Nasal Screen MRSA (PCR) PG Care Time/CCT Total # of Minutes Spent Total Time Spent with Patient: Total time spent is greater than 50% in coordination of care (as documented) at patient's floor/unit and/or counseling patient: Coding Level of Care Code 20528 SUB INP/OBS CARE 3/50MIN Diagnoses Acute kidney injury N17.9 Hypomagnesemia E83.42 Hypocalcemia E83.51 Metabolic acidosis with normal anion gap and bicarbonate losses E87.20 Vitamin D deficiency E55.9 Proximal renal tubular acidosis N25.89 High output ileostomy R19.8; Z93.2
[2022-11-16] MEDS: oxyCODONE HCL IR 5 MG TAB (IMMEDIATE RELEASE) PO PRN (10:59)
[2022-11-16] MEDS ORDERED: CALCIUM GLUCONATE 10% 1,000 MG in SODIUM CHLOR 0.9% MINI-B 50 ML IV ONE (11:00)
--- NOTE | 2022-11-16 11:14 | Cardiology Progress Note ---
Date of Service November 16, 2022 Assessment & Plan (1) Ventricular tachycardia: Plan: -no further ventricular tachycardia. -likely secondary to her acute illness and electrolyte abnormalities. -normal left ventricular systolic function on echocardiogram. -carvedilol currently on hold due to hypotension requiring pressors. -no further cardiac workup necessary. (2) (HFpEF) heart failure with preserved ejection fraction: Plan: -well compensated at this time. (3) CAD (coronary artery disease): Plan: -minimal disease on catheterization, July 2016. Admission and Anticipated Discharge Date Admission Date: November 08, 2022 Subjective The patient is resting comfortably in bed without complaints of chest pain, dyspnea, or palpitations. Physical Exam Physical Exam: In general this is a well-developed well-nourished white female no acute distress. HEENT exam is negative. Neck is supple with full carotid upstrokes. No carotid bruits. No jugular venous distention. There is no thyromegaly. Cardiovascular exam reveals a regular rhythm with a normal S1 and S2. No S3, S4, or murmurs are noted. Lungs notes scattered rhonchi. Abdomen is obese without bruits. Extremities reveal intact radial artery pulses bilaterally. There is trace pretibial edema on the right, 1+ on the left. Results & Data Vital Signs (Past 12 Hours) Vital Signs Temp Pulse Resp BP Pulse Ox O2 Del Method O2 Flow Rate 11/16/22 09:15 98/53 L 11/16/22 09:15 84 15 96 11/16/22 09:00 103 H 28 H 96 11/16/22 09:00 90/42 L 11/16/22 08:45 96/43 L 11/16/22 08:45 89 15 92 11/16/22 08:30 86 16 93 11/16/22 08:30 88/42 L 11/16/22 08:15 93/49 L 11/16/22 08:15 87 19 93 11/16/22 08:00 89 17 90 11/16/22 08:00 78/59 L 11/16/22 07:45 94/47 L 11/16/22 07:45 92 H 28 H 87 L 11/16/22 07:30 89 16 93 11/16/22 07:30 99/62 L 11/16/22 07:15 99/49 L 11/16/22 07:15 83 17 95 11/16/22 07:00 80 22 94 11/16/22 07:00 112/59 L 11/16/22 07:25 36.7 C 11/16/22 06:45 80 17 92 11/16/22 06:45 104/52 L 11/16/22 06:30 81 15 94 11/16/22 06:30 105/56 L 11/16/22 06:15 82 20 96 11/16/22 06:15 90/41 L 11/16/22 06:00 81 19 96 11/16/22 06:00 90/48 L 11/16/22 05:45 82 19 93 11/16/22 05:45 99/48 L 11/16/22 05:30 76 25 H 97 11/16/22 05:30 78/50 L 11/16/22 05:15 82 16 95 11/16/22 05:15 85/43 L 11/16/22 05:00 83 21 96 11/16/22 05:00 95/50 L 11/16/22 04:45 83 21 95 11/16/22 04:45 94/46 L 11/16/22 04:30 74 26 H 95 11/16/22 04:30 81/53 L 11/16/22 04:15 83 16 92 11/16/22 04:15 92/51 L 11/16/22 04:05 96/54 L 11/16/22 04:05 84 14 93 11/16/22 04:00 82 13 93 Nasal Cannula 4 11/16/22 03:45 80 22 94 11/16/22 03:45 94/49 L 11/16/22 03:30 80 21 95 11/16/22 03:30 95/62 L 11/16/22 03:15 78 13 96 11/16/22 03:15 97/47 L 11/16/22 03:00 77 21 98 11/16/22 03:00 104/51 L 11/16/22 02:45 77 21 99 11/16/22 02:45 107/49 L 11/16/22 02:30 82 16 97 11/16/22 02:15 81 19 97 11/16/22 02:15 90/52 L 11/16/22 00:00 36.8 C 11/16/22 04:00 36.6 C 11/16/22 02:00 73 19 96 11/16/22 02:00 101/47 L 11/16/22 01:45 74 15 97 11/16/22 01:45 102/49 L 11/16/22 01:30 80 20 98 11/16/22 01:30 106/54 L 11/16/22 01:15 76 19 97 11/16/22 01:15 103/54 L 11/16/22 01:00 80 21 94 11/16/22 01:00 97/53 L 11/16/22 00:45 76 22 96 11/16/22 00:45 103/52 L 11/16/22 00:30 86 17 95 11/16/22 00:30 108/59 L 11/16/22 00:15 78 18 94 11/16/22 00:15 102/55 L 11/16/22 00:00 79 17 93 Nasal Cannula 4 11/16/22 00:00 104/60 11/15/22 23:45 77 19 91 11/15/22 23:45 96/45 L 11/15/22 23:30 79 17 93 11/15/22 23:30 96/52 L 11/15/22 23:15 79 16 94 11/15/22 23:15 98/47 L 11/15/22 23:24 81 PG Care Time/CCT Total # of Minutes Spent Total Time Spent with Patient: Total time spent is greater than 50% in coordination of care (as documented) at patient's floor/unit and/or counseling patient: Coding Level of Care Code 36184 SUB INP/OBS CARE 3/50MIN Diagnoses Ventricular tachycardia I47.20 (HFpEF) heart failure with preserved ejection fraction I50.30 CAD (coronary artery disease) I25.10
[2022-11-16] MEDS: ALBUMIN 25% 25 GM/100 ML VIAL IV SCH ×2 (11:42→13:43)
[2022-11-16] MEDS: HYDROCORTISONE SOD 100 MG in SYRINGE 0 ML IV SCH ×2 (13:53→21:10)
[2022-11-16] MEDS: SODIUM BICARBONATE 8.4% 75 MEQ in SODIUM CHLORIDE 0.45 % 1,000 ML IV SCH (17:40)
--- NOTE | 2022-11-16 20:33 | Hospitalist Progress Note ---
Date of Service November 16, 2022 Assessment & Plan (1) Septic shock: Plan: source - RLL pneumonia blood cx's thus far neg urine cx from 11/14 negative (did have pseudomonas UTI early in stay - thus resolved) cortisol 20 copious IV fluids over the last 48-72 hours zosyn day #2 MRSA screen + --> is on Vanco; would be in favor for covering the MRSA given the severity of illness cont levophed to keep MAP > 65 stress-dose steroids added by Dr Miranda (2) RLL pneumonia: Plan: either aspiration given her dysphagia over the last 1-2 days vs nosocomial / gram negative etiology vs MRSA as above consider repeat COVID testing as well (3) Palmar-plantar erythrodysesthesia: Plan: all fingers affected and nearly all the toes uncertain if the skin findings are acral erythema / palmar-plantar erythrodysesthesia vs small vessel/cutaneous vasculitis vs other if former Xeloda likely to blame - Xeloda has been implicated in the dermatology literature to cause acral erythema Xeloda has been stopped exam findings today are similar to yesterday's exam; peeling of skin is improved; she denies pain over the hands/feet today consider autoimmune w/u -- cryoglobulins, antiphospholipid ab's, lupus anticoagulant, etc (4) Metabolic acidosis with normal anion gap and bicarbonate losses: Plan: 2nd to high output losses via colostomy +/- proximal RTA - much improved on bicarbonate infusion remains on PO bicarbonate tabs remains on bicarbonate infusion - 1/2 NS with 75meq bicarb at 75cc/hr lactates have been negative (5) Anemia: Plan: H/H trended down over last 3 days suspect hemoconcentration followed by copious hydration led to drop in hemoglobin no overt GI bleeding no signs/symptoms of retroperitoneal bleeding no evidence of hemolysis PT/PTT/INR all elevated but fibrinogen is high and platelets are normal making DIC unlikely could she have circulating inhibitor causing the coagulopathy? consider mixing study if she does have an inhibitor this may tie into her hands/feet issue (6) Lethargy: Plan: suspect multifactorial causes for such including her previous acidosis and septic shock/RLL pneumonia is better today but certainly no where near normal urine cx negative CT head neg for brain mets, ICH, etc ammonia level wnl pH has normalized (7) Acute kidney injury: Plan: resolved with fluids, supportive care appreciate nephro assistance malorie (8) (HFpEF) heart failure with preserved ejection fraction: Plan: echo this admission with normal EF no evidence of volume overload even with ongoing hydration appreciate cardiology assistance (9) NSVT (nonsustained ventricular tachycardia): Plan: 13 beat run of NSVT several days ago no symptoms fortunately EF is preserved likely due to electrolyte issues keep mag near 2, keep K near 4 or higher, and keep calcium as close to normal as possible holding coreg due to #1 above (10) Hyponatremia: Plan: 2nd to OZIEL & volume depletion improved (11) Acute conjunctivitis of both eyes: Plan: no response to polymyxin/TMP thus, switched to cipro eye drops IV zosyn will get shed in tears as well improved (12) Hypomagnesemia: Plan: resolved (13) Peripheral neuropathy: Plan: 2nd to prior chemo for breast ca? hold gabapentin due to lethargy/altered MS (14) Malignant neoplasm of breast metastatic to bone: Plan: follows with Dr Montoya at [facility] Xeloda stopped recently due to concerns for hand/foot syndrome // acral erythema most recent PET scan 08/2022 with skeletal mets but no solid-organ mets CT a/p without intra-abdominal metastatic disease (15) Hypocalcemia: Plan: ongoing cont IV Ca replacement + calcitriol + ca/vit D supplementation per nephrology/icu attending (16) GERD (gastroesophageal reflux disease): Plan: PPI (17) Hyperlipidemia: Plan: hold statin (18) Depression: Plan: cont paxil (19) CAD (coronary artery disease): Plan: per records minimal nonobstructive CAD on prior heart cath (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: Plan: contributing to acid/base balance, etc defer management to nephrology (21) Colostomy in place: Plan: created 2018 due to complications from diverticulitis significant high output of stool recently appears noninfectious - stool biofire negative; a repeat cdiff test also negative has improved with immodium QID + fiber output now <1000cc in 24 hours (22) DM type 2 (diabetes mellitus, type 2): Plan: resolved last a1c <6% (23) History of DVT (deep vein thrombosis): Plan: was on Eliquis 5mg BID until the time of ICU transfer; also was having trouble swallowing pills around the time of ICU transfer defer resumption of anticoagulation to ICU attending (24) Severe protein-calorie malnutrition: Plan: near 15kg weight loss since June 2022 2nd to metastatic breast ca albumin low in mid 2's very poor appetite (25) Pseudomonas urinary tract infection: Plan: early in admission - s/p course of cipro for such repeat urine cx negative (26) Tobacco abuse: Plan: cont nicoderm patch Plan updated Tg - pt's sister - by phone RUE swelling - consider doppler study r/o DVT prognosis very poor Admission and Anticipated Discharge Date Admission Date: November 08, 2022 Subjective events of last 24 hours noted remains on low-dose levophed with MAPs >65 during my rounds she was resting in bed with eyes closed stated "I might feel a little better" ate a little at breakfast but essentially nothing at lunch/dinner denies pain in any location for me, but apparently was having pain in right arm earlier today updated Tg her sister by phone this evening Review of Systems Review of Systems: cv - no chest pain pulm - cough present but denies dyspnea GI - stool output via ostomy has improved ; denies abd pain Physical Exam Physical Exam: gen - resting with eyes closed but answers questions, still weak & toxic appearing eyes - matting/crusting of lids but improved from earlier this week mouth - MM less dry neck - no JVD heart - RRR, s1 s2, no murmur lungs - course BS right base with some rales, no wheeze, occasional cough abd - soft NT ND BS+; ostomy left side of abdomen ext - no edema, cap refill still about 2-3 seconds over the feet/toes skin - all fingertips x 10 and all toes x 10 (especially great hallux b/l) with peeling of skin; erythematous tips of fingers/toes; erythema of palms; cap refill about 2-3 seconds of tips of fingers/toes; perfusion improved in comparison to earlier this week musculo - generalized edema of right arm but no palpable cord and no warmth Results & Data Results & Data Vital Signs (Past 12 Hours) Vital Signs Temp Pulse Resp BP Pulse Ox 11/16/22 18:00 78 18 92 11/16/22 17:30 80 31 H 92 11/16/22 17:30 108/48 L 11/16/22 17:49 37.1 C 11/16/22 12:00 84 10/12/23 17:00 81 18 90 11/16/22 17:00 105/47 L 11/16/22 16:30 89 18 89 L 11/16/22 16:30 117/63 11/16/22 16:00 89 16 89 L 11/16/22 16:00 88/48 L 11/16/22 15:30 89 20 93 11/16/22 15:30 98/44 L 11/16/22 15:00 88 18 93 11/16/22 15:00 96/41 L 11/16/22 14:30 88 15 92 11/16/22 14:30 90/42 L 11/16/22 14:00 89 14 95 11/16/22 14:00 85/54 L 11/16/22 13:30 101/45 L 11/16/22 13:30 90 16 95 11/16/22 13:00 92 H 17 91 11/16/22 13:00 84/47 L 11/16/22 12:30 87/68 L 11/16/22 12:30 89 14 91 11/16/22 12:00 89 16 92 11/16/22 12:00 102/48 L 11/16/22 11:31 92/36 L 11/16/22 11:31 87 14 94 11/16/22 11:00 86 10 L 91 11/16/22 11:00 99/48 L 11/16/22 10:30 83 18 95 11/16/22 10:30 112/53 L 11/16/22 10:00 85 20 95 11/16/22 10:00 87/43 L 11/16/22 09:30 85 17 97 11/16/22 09:30 91/55 L 11/16/22 11:39 37 C 11/16/22 09:15 98/53 L 11/16/22 09:15 84 15 96 11/16/22 09:00 103 H 28 H 96 11/16/22 09:00 90/42 L 11/16/22 08:45 96/43 L 11/16/22 08:45 89 15 92 Laboratory Results Laboratory Results - last 48 hr 11/15/22 11/15/22 11/15/22 05:54 08:16 11:58 WBC 9.08 RBC 2.70 L Hgb 8.9 L D Hct 27.3 L MCV 101.1 H MCH 33.0 MCHC 32.6 RDW Std Deviation 70.6 H RDW Coeff of Bradford 19.0 H Plt Count 279 MPV 8.9 L Immature Gran % (Auto) 1.8 Neut % (Auto) 72.9 Lymph % (Auto) 7.5 Emery % (Auto) 12.8 Eos % (Auto) 4.4 Baso % (Auto) 0.6 Neut # (Auto) 6.63 H Lymph # (Auto) 0.68 L Emery # (Auto) 1.16 H Eos # (Auto) 0.40 Baso # (Auto) 0.05 Immature Gran # (Auto) 0.16 PT INR APTT PTT Ratio Fibrinogen VBG pH VBG pCO2 VBG pO2 VBG HCO3 VBG O2 Saturation VBG Base Excess Sodium Potassium Chloride Carbon Dioxide Anion Gap BUN Creatinine Est Cr Clr Drug Dosing Est GFR ( Amer) Est GFR (Non-Af Amer) BUN/Creatinine Ratio Glucose POC Glucose 140 H 208 H Lactate Calcium Ionized Calcium Phosphorus Magnesium Total Bilirubin Direct Bilirubin AST ALT Alkaline Phosphatase Total Protein Albumin Globulin Albumin/Globulin Ratio Procalcitonin Random Cortisol Nasal Screen MRSA (PCR) 11/15/22 11/15/22 11/15/22 15:43 15:43 15:43 WBC 8.84 RBC 2.51 L Hgb 8.4 L Hct 25.5 L MCV 101.6 H MCH 33.5 MCHC 32.9 RDW Std Deviation 70.4 H RDW Coeff of Bradford 19.1 H Plt Count 266 MPV 9.2 L Immature Gran % (Auto) Neut % (Auto) Lymph % (Auto) Emery % (Auto) Eos % (Auto) Baso % (Auto) Neut # (Auto) Lymph # (Auto) Emery # (Auto) Eos # (Auto) Baso # (Auto) Immature Gran # (Auto) PT INR APTT PTT Ratio Fibrinogen VBG pH VBG pCO2 VBG pO2 VBG HCO3 VBG O2 Saturation VBG Base Excess Sodium Potassium Chloride Carbon Dioxide Anion Gap BUN Creatinine Est Cr Clr Drug Dosing Est GFR ( Amer) Est GFR (Non-Af Amer) BUN/Creatinine Ratio Glucose POC Glucose Lactate 1.0 Calcium Ionized Calcium Phosphorus Magnesium Total Bilirubin Direct Bilirubin AST ALT Alkaline Phosphatase Total Protein Albumin Globulin Albumin/Globulin Ratio Procalcitonin Random Cortisol 20.46 Nasal Screen MRSA (PCR) 11/15/22 11/15/22 11/15/22 17:07 19:27 19:44 WBC RBC Hgb Hct MCV MCH MCHC RDW Std Deviation RDW Coeff of Bradford Plt Count MPV Immature Gran % (Auto) Neut % (Auto) Lymph % (Auto) Emery % (Auto) Eos % (Auto) Baso % (Auto) Neut # (Auto) Lymph # (Auto) Emery # (Auto) Eos # (Auto) Baso # (Auto) Immature Gran # (Auto) PT 26.2 H INR 2.5 H APTT 46.7 H* PTT Ratio 1.7 Fibrinogen 422 H VBG pH VBG pCO2 VBG pO2 VBG HCO3 VBG O2 Saturation VBG Base Excess Sodium Potassium Chloride Carbon Dioxide Anion Gap BUN Creatinine Est Cr Clr Drug Dosing Est GFR ( Amer) Est GFR (Non-Af Amer) BUN/Creatinine Ratio Glucose POC Glucose 157 H 151 H Lactate Calcium Ionized Calcium Phosphorus Magnesium Total Bilirubin Direct Bilirubin AST ALT Alkaline Phosphatase Total Protein Albumin Globulin Albumin/Globulin Ratio Procalcitonin Random Cortisol Nasal Screen MRSA (PCR) 11/15/22 11/15/22 11/15/22 20:27 20:27 20:27 WBC RBC Hgb Hct MCV MCH MCHC RDW Std Deviation RDW Coeff of Bradford Plt Count MPV Immature Gran % (Auto) Neut % (Auto) Lymph % (Auto) Emery % (Auto) Eos % (Auto) Baso % (Auto) Neut # (Auto) Lymph # (Auto) Emery # (Auto) Eos # (Auto) Baso # (Auto) Immature Gran # (Auto) PT INR APTT PTT Ratio Fibrinogen VBG pH VBG pCO2 VBG pO2 VBG HCO3 VBG O2 Saturation VBG Base Excess Sodium 132 L Potassium 3.6 Chloride 107 Carbon Dioxide 21 Anion Gap 4 BUN 20 Creatinine 1.19 Est Cr Clr Drug Dosing 47.0 Est GFR ( Amer) 54.7 Est GFR (Non-Af Amer) 47.2 BUN/Creatinine Ratio 16.8 Glucose 127 H POC Glucose Lactate 0.8 Calcium 5.9 L* Ionized Calcium Phosphorus 2.0 L Magnesium 1.6 L Total Bilirubin 0.9 Direct Bilirubin AST 12 L ALT 3 L Alkaline Phosphatase 37 Total Protein 3.8 L Albumin 2.2 L Globulin 1.6 L Albumin/Globulin Ratio 1.4 Procalcitonin 0.81 H Random Cortisol Nasal Screen MRSA (PCR) 11/15/22 11/15/22 11/15/22 20:27 20:27 20:58 WBC RBC Hgb Hct MCV MCH MCHC RDW Std Deviation RDW Coeff of Bradford Plt Count MPV Immature Gran % (Auto) Neut % (Auto) Lymph % (Auto) Emery % (Auto) Eos % (Auto) Baso % (Auto) Neut # (Auto) Lymph # (Auto) Emery # (Auto) Eos # (Auto) Baso # (Auto) Immature Gran # (Auto) PT INR APTT PTT Ratio Fibrinogen VBG pH 7.37 VBG pCO2 36 L VBG pO2 67 VBG HCO3 21 VBG O2 Saturation 95.4 VBG Base Excess -3.9 Sodium Potassium Chloride Carbon Dioxide Anion Gap BUN Creatinine Est Cr Clr Drug Dosing Est GFR ( Amer) Est GFR (Non-Af Amer) BUN/Creatinine Ratio Glucose POC Glucose 118 H Lactate Calcium Ionized Calcium 0.93 L Phosphorus Magnesium Total Bilirubin Direct Bilirubin AST ALT Alkaline Phosphatase Total Protein Albumin Globulin Albumin/Globulin Ratio Procalcitonin Random Cortisol Nasal Screen MRSA (PCR) 11/15/22 11/16/22 11/16/22 Unknown 04:04 04:04 WBC 8.04 RBC 2.67 L Hgb 9.0 L Hct 27.5 L MCV 103.0 H MCH 33.7 MCHC 32.7 RDW Std Deviation 70.4 H RDW Coeff of Bradford 19.1 H Plt Count 266 MPV 9.0 L Immature Gran % (Auto) 3.4 Neut % (Auto) 67.0 Lymph % (Auto) 9.3 Emery % (Auto) 10.1 Eos % (Auto) 9.8 Baso % (Auto) 0.4 Neut # (Auto) 5.39 Lymph # (Auto) 0.75 L Emery # (Auto) 0.81 H Eos # (Auto) 0.79 H Baso # (Auto) 0.03 Immature Gran # (Auto) 0.27 H PT INR APTT PTT Ratio Fibrinogen VBG pH VBG pCO2 VBG pO2 VBG HCO3 VBG O2 Saturation VBG Base Excess Sodium 134 L Potassium 3.8 Chloride 105 Carbon Dioxide 24 Anion Gap 5 BUN 16 Creatinine 1.12 Est Cr Clr Drug Dosing 50.0 Est GFR ( Amer) 58.9 Est GFR (Non-Af Amer) 50.8 BUN/Creatinine Ratio 14.3 Glucose 140 H POC Glucose Lactate Calcium 6.5 L Ionized Calcium Phosphorus 3.3 D Magnesium 2.4 Total Bilirubin 0.9 Direct Bilirubin 0.4 H AST 16 ALT 4 L Alkaline Phosphatase 43 Total Protein 4.3 L Albumin 2.4 L Globulin Albumin/Globulin Ratio Procalcitonin Random Cortisol Nasal Screen MRSA (PCR) Positive A 11/16/22 11/16/22 11/16/22 04:04 04:04 07:21 WBC RBC Hgb Hct MCV MCH MCHC RDW Std Deviation RDW Coeff of Bradford Plt Count MPV Immature Gran % (Auto) Neut % (Auto) Lymph % (Auto) Emery % (Auto) Eos % (Auto) Baso % (Auto) Neut # (Auto) Lymph # (Auto) Emery # (Auto) Eos # (Auto) Baso # (Auto) Immature Gran # (Auto) PT 21.4 H INR 2.0 H APTT PTT Ratio Fibrinogen VBG pH VBG pCO2 VBG pO2 VBG HCO3 VBG O2 Saturation VBG Base Excess Sodium Potassium Chloride Carbon Dioxide Anion Gap BUN Creatinine Est Cr Clr Drug Dosing Est GFR ( Amer) Est GFR (Non-Af Amer) BUN/Creatinine Ratio Glucose POC Glucose 128 H Lactate Calcium Ionized Calcium 1.00 L Phosphorus Magnesium Total Bilirubin Direct Bilirubin AST ALT Alkaline Phosphatase Total Protein Albumin Globulin Albumin/Globulin Ratio Procalcitonin Random Cortisol Nasal Screen MRSA (PCR) 11/16/22 11/16/22 11/16/22 11:30 12:52 16:03 WBC RBC Hgb Hct MCV MCH MCHC RDW Std Deviation RDW Coeff of Bradford Plt Count MPV Immature Gran % (Auto) Neut % (Auto) Lymph % (Auto) Emery % (Auto) Eos % (Auto) Baso % (Auto) Neut # (Auto) Lymph # (Auto) Emery # (Auto) Eos # (Auto) Baso # (Auto) Immature Gran # (Auto) PT INR APTT PTT Ratio Fibrinogen VBG pH VBG pCO2 VBG pO2 VBG HCO3 VBG O2 Saturation VBG Base Excess Sodium Potassium Chloride Carbon Dioxide Anion Gap BUN Creatinine Est Cr Clr Drug Dosing Est GFR ( Amer) Est GFR (Non-Af Amer) BUN/Creatinine Ratio Glucose POC Glucose 122 H 125 H Lactate Calcium Ionized Calcium 1.03 L Phosphorus Magnesium Total Bilirubin Direct Bilirubin AST ALT Alkaline Phosphatase Total Protein Albumin Globulin Albumin/Globulin Ratio Procalcitonin Random Cortisol Nasal Screen MRSA (PCR) Diagnostic Findings blood cx's negative to date PG Care Time/CCT Total # of Minutes Spent Total Time Spent with Patient: Total time spent is greater than 50% in coordination of care (as documented) at patient's floor/unit and/or counseling patient: Coding Level of Care Code 17393 SUB INP/OBS CARE 2/35MIN Diagnoses Septic shock A41.9; R65.21 RLL pneumonia J18.9 Palmar-plantar erythrodysesthesia L27.1 Metabolic acidosis with normal anion gap and bicarbonate losses E87.20 Anemia D64.9 Lethargy R53.83 Acute kidney injury N17.9 (HFpEF) heart failure with preserved ejection fraction I50.30 NSVT (nonsustained ventricular tachycardia) I47.29 Hyponatremia E87.1 Acute conjunctivitis of both eyes H10.33 Hypomagnesemia E83.42 Peripheral neuropathy G62.9 Malignant neoplasm of breast metastatic to bone C50.919; C79.51 Hypocalcemia E83.51 GERD (gastroesophageal reflux disease) K21.9 Hyperlipidemia E78.5 Depression F32.9 CAD (coronary artery disease) I25.10 Proximal renal tubular acidosis N25.[address] Z93.3 DM type 2 (diabetes mellitus, type 2) E11.9 History of DVT (deep vein thrombosis) Z86.718 Severe protein-calorie malnutrition E43 Pseudomonas urinary tract infection N39.0; B96.5 Tobacco abuse Z72.0
[2022-11-17] MEDS: PIPERACILLIN/TAZOBACTAM 4.5 GM in DEXTROSE 5% MINI-B 100 ML IV SCH ×3 (04:27→21:12)
[2022-11-17 05:01] LABS: Basophils # (auto) 0.01 K/uL (0.00-0.20); Basophils % (auto) 0.2 %; Hematocrit (blood only) 25.2 % (37.0-47.0); Hemoglobin 8.3 g/dl (12.0-16.0); Immature Granulocytes # (auto) 0.11 K/uL (0.01-0.20); Immature Granulocytes % (auto) 1.8 %; Lymphocytes # (auto) 0.34 K/uL (1.20-3.40); Lymphocytes % (auto) 5.7 %; Mean Corpuscular Hemoglobin 32.9 pg (25.0-34.0); Mean Corpuscular Hgb Conc 32.9 g/dL (32.0-36.0); Mean Platelet Volume 9.3 fL (9.4-12.4); Monocytes # (auto) 0.35 K/uL (0.11-0.59); Monocytes % (auto) 5.9 %; Neutrophils # (auto) 5.17 K/uL (1.40-6.50); Neutrophils % (auto) 86.4 %; Platelet Count 279 K/uL (130-400); RDW Coefficient of Variation 19.1 % (11.5-14.5); RDW Standard Deviation 69.7 fL (36.4-46.3); Red Blood Count 2.52 M/uL (4.20-5.40); White Blood Count 5.98 K/ul (4.8-10.8)
[2022-11-17 05:17] LABS: BUN Creatinine Ratio 12.6 (10-20); Calcium 6.8 mg/dl (8.6-10.3); Creatinine Clr Calc Pharmacy 61.3 ml/min; Est GFR (African American) 71.8 ml/min; Phosphorus 2.2 mg/dl (2.5-4.9)
[2022-11-17] MEDS: HYDROCORTISONE SOD 100 MG in SYRINGE 0 ML IV SCH (05:31)
[2022-11-17 05:35] LABS: INR 1.9 (0.9-1.1); Partial Thromboplastin Ratio 1.6; Prothrombin Time 19.8 Seconds (9.0-12.0)
[2022-11-17 06:36] LABS: Partial Thromboplastin Time 44.2 Seconds (21.0-31.0)
[2022-11-17] MEDS: SODIUM BICARBONATE 8.4% 75 MEQ in SODIUM CHLORIDE 0.45 % 1,000 ML IV SCH (07:37)
[2022-11-17] MEDS: MoRPHine SULFATE 2 MG/ML CARP IV PRN (07:37)
[2022-11-17] MEDS: INSULIN ASPART PER UNIT CHARGE SC SCH ×4 (09:16→21:09)
[2022-11-17] MEDS: NICOTINE 14 MG/24 HR PATCH TD SCH (09:17)
[2022-11-17] MEDS: CALCITRIOL 0.25 MCG CAPSULE PO SCH (09:17)
[2022-11-17] MEDS: PANTOprazole 40 MG TAB PO SCH (09:18)
[2022-11-17] MEDS: PARoxetine HCL 20 MG TAB PO SCH (09:21)
[2022-11-17] MEDS: SODIUM BICARBONATE 650 MG TAB PO SCH ×2 (09:21→21:10)
[2022-11-17] MEDS: CIPROFLOXACIN HCL 0.3% OP SOLN 2.5 ML BTL OPB SCH ×4 (09:26→21:10)
[2022-11-17] MEDS: POTASSIUM CHLORIDE CRTAB 20 MEQ TABCR PO SCH (09:26)
--- NOTE | 2022-11-17 09:50 | Critical Care Progress Note ---
Date of Service November 17, 2022 Assessment & Plan (1) Septic shock: Plan: Reason Critically Ill: 66-year-old female with complex past medical history including metastatic breast cancer to bone now presents to the ICU with fever/sepsis from possible pneumonia and hypotension requiring vasopressor support. Neuro - Peripheral neuropathycontinue gabapentin Cardiac - Hypotensionlikely secondary to sepsis: Resolved - decrease solucortef to 50 mg every 8 hours x3 doses then discontinue -Continue with maintenance fluid for poor intake Diastolic heart failureTTE 10/6 with normal systolic function, grade 1 diastolic dysfunction. Mild mitral regurg moderate tricuspid regurg and elevated RV systolic pressure 40 to 50 mmHg -Lasix on hold due to hypotension/OZIEL -Appears to be hypovolemic on exam and currently undergoing fluid bolus. Goal of euvolemia Nonsustained V. tachwe will evaluated by cardiology. Remains on Coreg and no further intervention however Coreg is currently on hold due to hypotension -No further events. We will continue to monitor on continuous telemetry. Maximize electrolytes. Consider amiodarone drip if this becomes an issue again HLDcontinue statin Respiratory - Acute hypoxic respiratory failure:: Worsening on high flow Possible/probable pneumonia -Continue antibiotics for 7-day therapy Component of anasarca GI - Protein calorie malnutrition -Encourage nutritional support/food intake GERDPPI History of colostomysecondary to complications from diverticulitis in 2018 -Continue with Imodium for high stool output. RENAL/LYTES - OZIEL resolved -Maintenance fluids is half NS with 75 bicarb running at 75 -Maintain maps greater than 65 Metabolic acidosissecondary to high output bicarb losses through colostomy. Lactate remains negative. -pH remains at 7.37 -Tolerating maintenance fluids consisting of half NS with 75 mEq bicarb Mild hyponatremia at 135 continue to closely monitor Mild hypophosphatemia: 18 mmol K-Phos Hypocalcemia -Continue calcitriol 1 mcg daily. Ergocalciferol 49689 units twice weekly. Calcium 600 mg + D3 -1 g calcium gluconate - Foleystrict I's and O's Skin Palmar plantar erythrodysesthesiaaffecting fingers and toes. Thought to be caused by axilla odor which has been stopped ENDO - DM type IImetformin on hold. Continue with sliding scale. ICU hyperglycemic protocol HEME - Anemia - H&H stable, monitor routine CBC Malignant neoplasm of breast metastatic to bonefollows with Dr. [facility] -Chemo on hold due to plantar erythrodysesthesia ID - Sepsisfever 38.5 and immunocompromised patient. Most likely from developing r ight lower lobe pneumonia seen on chest x-ray. UTI with pansensitive Pseudomonas - Unable to obtain sputum culture as patient has been unable to produce a sample at this time. - Blood cultures currently pending. - Stool bio fire and C. difficile negative - Nasal MRSA positive, started on vancomycin -Unlikely to represent MRSA pneumonia we will discontinue vancomycin - Antibiotics broadened to Zosyn: Continue for 7 days empiric therapy Conjunctivitiscontinue Cipro eyedrops LINES/IV ACCESS - Peripheral IVs DVT PROPHYLAXIS - SCDs Patient's hypotension has resolved and she would like to be transferred out of the ICU. I think this would be appropriate, she would prefer to continue vasoactive medication in event of hypotension remains DNR/DNI in event of cardiac arrest. Discussed this with the hospitalist team. (2) RLL pneumonia: (3) Pseudomonas urinary tract infection: (4) Severe protein-calorie malnutrition: (5) DM type 2 (diabetes mellitus, type 2): (6) Colostomy in place: (7) NSVT (nonsustained ventricular tachycardia): (8) CAD (coronary artery disease): (9) (HFpEF) heart failure with preserved ejection fraction: (10) Metabolic acidosis with normal anion gap and bicarbonate losses: (11) Acute conjunctivitis of both eyes: (12) Malignant neoplasm of breast metastatic to bone: Admission and Anticipated Discharge Date Admission Date: November 08, 2022 Subjective Patient reporting she feels better today. Still weak with poor appetite. Would like to be transferred out of ICU. Would return to the ICU if she were to require vasoactive medication administration again. Worsening hypoxia on high flow nasal cannula at this time Physical Exam Physical Exam: General: Alert. nontoxic. Skin: Warm, dry, Head: Atraumatic Ears, nose, mouth and throat: airway patent Cardiovascular: Normal peripheral perfusion Respiratory: no respiratory distress Gastrointestinal: Non distended Results & Data Results & Data Vital Signs (Past 12 Hours) Vital Signs Temp Pulse Pulse Resp BP Pulse Ox O2 Del Method 11/17/22 07:33 87 20 98 High Flow Nasal Cannula 11/17/22 00:00 37.4 C 11/17/22 04:00 37.4 C 11/17/22 05:25 76 18 90 High Flow Nasal Cannula 11/17/22 04:31 73 16 88 L 11/17/22 04:31 124/65 11/17/22 04:30 76 20 86 L 11/17/22 04:08 77 16 85 L 11/17/22 04:08 133/56 L 11/17/22 04:00 76 26 H 91 11/17/22 03:45 76 16 88 L 11/17/22 03:45 103/62 11/17/22 03:30 71 18 90 11/17/22 03:00 74 15 96 11/17/22 03:00 108/54 L 11/17/22 02:45 73 27 H 95 11/17/22 02:45 110/58 L 11/17/22 02:30 73 20 91 11/17/22 02:30 103/61 11/17/22 02:15 76 25 H 87 L 11/17/22 02:15 101/54 L 11/17/22 02:00 76 23 88 L 11/17/22 01:45 75 19 85 L 11/17/22 01:45 104/57 L 11/17/22 01:30 76 20 92 11/17/22 01:30 105/58 L 11/17/22 01:00 72 28 H 92 11/17/22 00:45 70 20 93 11/17/22 00:45 108/53 L 11/17/22 00:30 73 21 91 11/17/22 00:30 97/65 L 11/17/22 00:15 106/53 L 11/17/22 00:15 72 13 95 11/17/22 00:00 75 20 89 L 11/17/22 00:00 102/45 L 11/16/22 23:30 87 16 93 11/16/22 23:30 113/65 11/16/22 23:00 87 20 93 11/16/22 22:30 88 22 93 11/16/22 22:00 87 17 96 11/17/22 02:08 Oxymask 11/17/22 01:18 75 11/16/22 21:49 Oxymask O2 Flow Rate FiO2 11/17/22 07:33 30 100 11/17/22 00:00 11/17/22 04:00 11/17/22 05:25 30 100 11/17/22 04:31 11/17/22 04:31 11/17/22 04:30 11/17/22 04:08 11/17/22 04:08 11/17/22 04:00 11/17/22 03:45 11/17/22 03:45 11/17/22 03:30 11/17/22 03:00 11/17/22 03:00 11/17/22 02:45 11/17/22 02:45 11/17/22 02:30 11/17/22 02:30 11/17/22 02:15 11/17/22 02:15 11/17/22 02:00 11/17/22 01:45 11/17/22 01:45 11/17/22 01:30 11/17/22 01:30 11/17/22 01:00 11/17/22 00:45 11/17/22 00:45 11/17/22 00:30 11/17/22 00:30 11/17/22 00:15 11/17/22 00:15 11/17/22 00:00 11/17/22 00:00 11/16/22 23:30 11/16/22 23:30 11/16/22 23:00 11/16/22 22:30 11/16/22 22:00 11/17/22 02:08 8 11/17/22 01:18 11/16/22 21:49 6 Critical Care Results & Data Vital Signs (Past 12 Hours) Vital Signs Temp Pulse Pulse Resp BP Pulse Ox O2 Del Method 11/17/22 09:30 78 23 100 High Flow Nasal Cannula 11/17/22 09:01 79 18 91 High Flow Nasal Cannula 11/17/22 09:01 126/63 11/17/22 09:00 79 16 97 High Flow Nasal Cannula 11/17/22 08:31 152/71 H 11/17/22 08:31 86 93 High Flow Nasal Cannula 11/17/22 08:30 87 94 High Flow Nasal Cannula 11/17/22 08:01 84 16 95 High Flow Nasal Cannula 11/17/22 08:01 145/66 H 11/17/22 08:00 84 21 97 High Flow Nasal Cannula 11/17/22 07:31 89 16 88 L High Flow Nasal Cannula 11/17/22 07:31 152/82 H 11/17/22 07:30 87 94 High Flow Nasal Cannula 11/17/22 07:01 81 21 100 High Flow Nasal Cannula 11/17/22 07:01 141/86 H 11/17/22 07:00 81 27 H 97 High Flow Nasal Cannula 11/17/22 07:33 87 20 98 High Flow Nasal Cannula 11/17/22 00:00 37.4 C 11/17/22 04:00 37.4 C 11/17/22 05:25 76 18 90 High Flow Nasal Cannula 11/17/22 04:31 73 16 88 L 11/17/22 04:31 124/65 11/17/22 04:30 76 20 86 L 11/17/22 04:08 77 16 85 L 11/17/22 04:08 133/56 L 11/17/22 04:00 76 26 H 91 11/17/22 03:45 76 16 88 L 11/17/22 03:45 103/62 11/17/22 03:30 71 18 90 11/17/22 03:00 74 15 96 11/17/22 03:00 108/54 L 11/17/22 02:45 73 27 H 95 11/17/22 02:45 110/58 L 11/17/22 02:30 73 20 91 11/17/22 02:30 103/61 11/17/22 02:15 76 25 H 87 L 11/17/22 02:15 101/54 L 11/17/22 02:00 76 23 88 L 11/17/22 01:45 75 19 85 L 11/17/22 01:45 104/57 L 11/17/22 01:30 76 20 92 11/17/22 01:30 105/58 L 11/17/22 01:00 72 28 H 92 11/17/22 00:45 70 20 93 11/17/22 00:45 108/53 L 11/17/22 00:30 73 21 91 11/17/22 00:30 97/65 L 11/17/22 00:15 106/53 L 11/17/22 00:15 72 13 95 11/17/22 00:00 75 20 89 L 11/17/22 00:00 102/45 L 11/17/22 02:08 Oxymask 11/17/22 01:18 75 O2 Flow Rate FiO2 10/13/23 09:30 11/17/22 09:01 11/17/22 09:01 11/17/22 09:00 11/17/22 08:31 11/17/22 08:31 11/17/22 08:30 11/17/22 08:01 11/17/22 08:01 11/17/22 08:00 11/17/22 07:31 11/17/22 07:31 11/17/22 07:30 11/17/22 07:01 11/17/22 07:01 11/17/22 07:00 11/17/22 07:33 30 100 11/17/22 00:00 11/17/22 04:00 11/17/22 05:25 30 100 11/17/22 04:31 11/17/22 04:31 11/17/22 04:30 11/17/22 04:08 11/17/22 04:08 11/17/22 04:00 11/17/22 03:45 11/17/22 03:45 11/17/22 03:30 11/17/22 03:00 11/17/22 03:00 11/17/22 02:45 11/17/22 02:45 11/17/22 02:30 11/17/22 02:30 11/17/22 02:15 11/17/22 02:15 11/17/22 02:00 11/17/22 01:45 11/17/22 01:45 11/17/22 01:30 11/17/22 01:30 11/17/22 01:00 11/17/22 00:45 11/17/22 00:45 11/17/22 00:30 11/17/22 00:30 11/17/22 00:15 11/17/22 00:15 11/17/22 00:00 11/17/22 00:00 11/17/22 02:08 8 11/17/22 01:18 Lab & Micro Results (Past 24 Hours) RBC 2.52 M/uL (4.20-5.40) L 11/17/22 WBC 5.98 K/ul (4.8-10.8) 11/17/22 Hgb 8.3 g/dl (12.0-16.0) L 11/17/22 Hct 25.2 % (37.0-47.0) L 11/17/22 MCV 100.0 fL (80.0-100.0) 11/17/22 MCH 32.9 pg (25.0-34.0) 11/17/22 MCHC 32.9 g/dL (32.0-36.0) 11/17/22 RDW Standard Deviation 69.7 fL (36.4-46.3) H 11/17/22 RDW Coefficient of Variation 19.1 % (11.5-14.5) H 11/17/22 Plt Count 279 K/uL (130-400) 11/17/22 MPV 9.3 fL (9.4-12.4) L 11/17/22 Neutrophils (%) (Auto) 86.4 % 11/17/22 Lymphocytes (%) (Auto) 5.7 % 11/17/22 Monocytes # (Auto) 0.35 K/uL (0.11-0.59) 11/17/22 Eosinophils # (Auto) 0.00 K/uL (0.00-0.50) 11/17/22 Immature Granulocyte % (Auto) 1.8 % 11/17/22 Neutrophils # (Auto) 5.17 K/uL (1.40-6.50) 11/17/22 Lymphocytes # (Auto) 0.34 K/uL (1.20-3.40) L 11/17/22 Monocytes # (Auto) 0.35 K/uL (0.11-0.59) 11/17/22 Eosinophils # (Auto) 0.00 K/uL (0.00-0.50) 11/17/22 Basophils # (Auto) 0.01 K/uL (0.00-0.20) 11/17/22 Immature Granulocyte # (Auto) 0.11 K/uL (0.01-0.20) 3 Na 135 mmol/L (136-145) L 11/17/22 K 4.0 mmol/L (3.5-5.1) 11/17/22 Cl 104 mmol/L (98-107) 11/17/22 CO2 24 mmol/L (21-32) 11/17/22 Anion Gap 7 (3-11) 11/17/22 BUN 12 mg/dl (6-23) 11/17/22 Creatinine 0.95 mg/dl (0.6-1.2) 11/17/22 Estimated GFR ( Amer) 71.8 ml/min 11/17/22 Estimated GFR (Non-Af Amer) 62.0 ml/min 11/17/22 BUN/Creatinine Ratio 12.6 (10-20) 11/17/22 Glu 130 mg/dl (70-99(Fasting)) H 11/17/22 Ca 6.8 mg/dl (8.6-10.3) L 11/17/22 Phosphorus Level 2.2 mg/dl (2.5-4.9) L 11/17/22 Calcium Level 6.8 mg/dl (8.6-10.3) L 11/17/22 04:06 Ionized Calcium 1.03 mmol/L (1.12-1.32) L 11/16/22 12:52 Prothromb Time International Ratio 1.9 (0.9-1.1) H 11/17/22 04 :06 Microbiology 11/15/22 15:43 Aerobic Blood Culture - Preliminary Blood No growth in Aerobic bottle after 24 hours. Anaerobic Blood Culture - Preliminary No growth in Anaerobic bottle after 24 hours. 11/15/22 15:43 Aerobic Blood Culture - Preliminary Blood No growth in Aerobic bottle after 24 hours. Anaerobic Blood Culture - Preliminary No growth in Anaerobic bottle after 24 hours. 11/14/22 Unknown Urine Culture - Final Urine,Clean Catch No growth - less than 1,000 colonies/mL. Diagnostic Findings (Past 24 Hours) Chest X-Ray 11/17/22 09:04 XR chest 1V portable HISTORY: Hypoxia. COMPARISON: Chest 11/15/2022. FINDINGS: No pneumothorax. The cardiac silhouette remains mildly enlarged. Bilat eral pleural effusions and bibasilar densities have progressed/developed in the interval. There is mild interstitial thickening which may be chronic. There are surgical clips within the left axilla. IMPRESSION: 1. Interval progression/development of bibasilar densities and bilateral pleural effusions. This may represent a pneumonia and could be due to aspiration. 2. Mild interstitial thickening persists and is likely chronic. Mild congestive change could also have a similar appearance. ACT 112: Negative or not required by law. Electronically signed by: Sebastien Lovett M.D. 11/17/2022 11:21 AM I & O Totals 24 Hours 11/16/22 11/17/22 11/18/22 06:59 06:59 06:59 Intake Total 5986.370 / 5986.370 3004.257 / 3004.257 1146.25 / 1146.25 Output Total 1395 / 1395 1345 / 1345 90 / 90 Balance 4591.370 / 4591.370 1659.257 / 1463.027 5328.25 / 1056.25 Cumulative 11/08/22 15:41 thru 11/17/22 10:56 Intake Total 09000.295 Output Total 53448 Balance 4690.295 RT Ventilator Mngmt (Last Documented) Ventilator Ordered Settings Respiratory Rate 23 11/17/22 09 :30 Fraction of Inspired Oxygen [ 21 11/13/22 01:01 Resting] Fraction of Inspired Oxygen 100 11/17/22 07:33 Ventilator - PT Measurements Respiratory Rate 23 Coding Level of Care Code 76863 SUB INP/OBS CARE 3/50MIN Diagnoses Septic shock A41.9; R65.21 RLL pneumonia J18.9 Pseudomonas urinary tract infection N39.0; B96.5 Severe protein-calorie malnutrition E43 DM type 2 (diabetes mellitus, type 2) E11.[address] Z93.3 NSVT (nonsustained ventricular tachycardia) I47.29 CAD (coronary artery disease) I25.10 (HFpEF) heart failure with preserved ejection fraction I50.30 Metabolic acidosis with normal anion gap and bicarbonate losses E87.20 Acute conjunctivitis of both eyes H10.33 Malignant neoplasm of breast metastatic to bone C50.919; C79.51
[2022-11-17] MEDS ORDERED: POTASSIUM PHOSPHATE 18 MMOL in SODIUM CHLORIDE 0.9% 500 ML IV ONE (10:00)
[2022-11-17] MEDS ORDERED: STAT IV STA (10:10)
--- NOTE | 2022-11-17 10:13 | Nephrology Progress Note ---
Date of Service November 17, 2022 Assessment & Plan (1) Acute kidney injury: Plan: Prerenal due to increased ostomy output. Creatinine has returned to <1 mg/dL and remains stable. Electrolytes acceptable. Calcium and phosphorus replacement are being provided pre ICU team. Document strict I/O's. Medications appropriate for kidney function. OZIEL resolved. Patient is being closely managed by ICU team. Nephrology will follow peripherally now. Please call with any questions or concerns. (2) Hypomagnesemia: Plan: GI and renal losses. Monitor daily. Hold amiloride. (3) Hypocalcemia: Plan: Continue calcitriol 1 mcg daily. Ergocalciferol 53224 units twice weekly. Calcium 600 mg + D3. Calcium gluconate 1 gram IV provided this AM. Recheck tomorrow AM. (4) Metabolic acidosis with normal anion gap and bicarbonate losses: Plan: Due to ostomy output and pRTA. Remains on IV replacement with 1/2 NS + NaHCO3 @ 75 ml/hr. (5) Vitamin D deficiency: Plan: Ergocalciferol twice weekly. Calcitriol 1 mcg daily. (6) Proximal renal tubular acidosis: Plan: Hold amiloride. Electrolyte replacement PRN. Monitor daily. (7) High output ileostomy: Plan: Continue to encourage slightly positive fluid balance. Admission and Anticipated Discharge Date Admission Date: November 08, 2022 Subjective Increased O2 requirement. Very tired and weak this morning. Afebrile x 24 hours. Urine and blood cultures no growth since 11/15. Appetite very poor. Ostomy output remains liquid but decreased to <1 L/d. Review of Systems Review of Systems: All systems reviewed & are unremarkable except as noted in HPI & below Physical Exam Constitutional: + thin and + frail appearing; no acute distress Eyes: + anicteric sclerae; no corneal abnormality ENMT: Mouth: no oral mucosal abnormality and oral mucous membranes not dry Neck: normal visual inspection and trachea midline Respiratory: normal respiratory effort Auscultation: lungs clear to auscultation bilaterally Cardiovascular: Rate/Rhythm: regular rate Heart Sounds: normal S1 and normal S2 Extremities: no edema Musculoskeletal: Extremities: no cyanosis and no clubbing Skin: + turgor decreased and + ecchymosis; no jaundice Neurologic: Motor/Sensory: no tremor and no asterixis Psychiatric: Orientation: alert and oriented x 3 Results & Data Vital Signs (Past 12 Hours) Vital Signs Temp Pulse Pulse Resp BP Pulse Ox O2 Del Method 11/17/22 09:30 78 23 100 High Flow Nasal Cannula 11/17/22 09:01 79 18 91 High Flow Nasal Cannula 11/17/22 09:01 126/63 11/17/22 09:00 79 16 97 High Flow Nasal Cannula 11/17/22 08:31 152/71 H 11/17/22 08:31 86 93 High Flow Nasal Cannula 11/17/22 08:30 87 94 High Flow Nasal Cannula 11/17/22 08:01 84 16 95 High Flow Nasal Cannula 11/17/22 08:01 145/66 H 11/17/22 08:00 84 21 97 High Flow Nasal Cannula 11/17/22 07:31 89 16 88 L High Flow Nasal Cannula 11/17/22 07:31 152/82 H 11/17/22 07:30 87 94 High Flow Nasal Cannula 11/17/22 07:01 81 21 100 High Flow Nasal Cannula 11/17/22 07:01 141/86 H 11/17/22 07:00 81 27 H 97 High Flow Nasal Cannula 11/17/22 07:33 87 20 98 High Flow Nasal Cannula 11/17/22 00:00 37.4 C 11/17/22 04:00 37.4 C 11/17/22 05:25 76 18 90 High Flow Nasal Cannula 11/17/22 04:31 73 16 88 L 11/17/22 04:31 124/65 11/17/22 04:30 76 20 86 L 11/17/22 04:08 77 16 85 L 11/17/22 04:08 133/56 L 11/17/22 04:00 76 26 H 91 11/17/22 03:45 76 16 88 L 11/17/22 03:45 103/62 11/17/22 03:30 71 18 90 11/17/22 03:00 74 15 96 11/17/22 03:00 108/54 L 11/17/22 02:45 73 27 H 95 11/17/22 02:45 110/58 L 11/17/22 02:30 73 20 91 11/17/22 02:30 103/61 11/17/22 02:15 76 25 H 87 L 11/17/22 02:15 101/54 L 11/17/22 02:00 76 23 88 L 11/17/22 01:45 75 19 85 L 11/17/22 01:45 104/57 L 11/17/22 01:30 76 20 92 11/17/22 01:30 105/58 L 11/17/22 01:00 72 28 H 92 11/17/22 00:45 70 20 93 11/17/22 00:45 108/53 L 11/17/22 00:30 73 21 91 11/17/22 00:30 97/65 L 11/17/22 00:15 106/53 L 11/17/22 00:15 72 13 95 11/17/22 00:00 75 20 89 L 11/17/22 00:00 102/45 L 11/16/22 23:30 87 16 93 11/16/22 23:30 113/65 11/16/22 23:00 87 20 93 11/16/22 22:30 88 22 93 11/17/22 02:08 Oxymask 11/17/22 01:18 75 O2 Flow Rate FiO2 11/17/22 09:30 11/17/22 09:01 11/17/22 09:01 11/17/22 09:00 11/17/22 08:31 11/17/22 08:31 11/17/22 08:30 11/17/22 08:01 11/17/22 08:01 11/17/22 08:00 11/17/22 07:31 11/17/22 07:31 11/17/22 07:30 11/17/22 07:01 11/17/22 07:01 11/17/22 07:00 11/17/22 07:33 30 100 11/17/22 00:00 11/17/22 04:00 11/17/22 05:25 30 100 11/17/22 04:31 11/17/22 04:31 11/17/22 04:30 11/17/22 04:08 11/17/22 04:08 11/17/22 04:00 11/17/22 03:45 11/17/22 03:45 11/17/22 03:30 11/17/22 03:00 11/17/22 03:00 11/17/22 02:45 11/17/22 02:45 11/17/22 02:30 11/17/22 02:30 11/17/22 02:15 11/17/22 02:15 11/17/22 02:00 11/17/22 01:45 11/17/22 01:45 11/17/22 01:30 11/17/22 01:30 11/17/22 01:00 11/17/22 00:45 11/17/22 00:45 11/17/22 00:30 11/17/22 00:30 11/17/22 00:15 11/17/22 00:15 11/17/22 00:00 11/17/22 00:00 11/16/22 23:30 11/16/22 23:30 11/16/22 23:00 11/16/22 22:30 11/17/22 02:08 8 11/17/22 01:18 Laboratory Results Laboratory Results - last 24 hr 11/12/22 11/16/22 11/16/22 Unknown 11:30 12:52 WBC RBC Hgb Hct MCV MCH MCHC RDW Std Deviation RDW Coeff of Bradford Plt Count MPV Immature Gran % (Auto) Neut % (Auto) Lymph % (Auto) [place] % (Auto) Eos % (Auto) Baso % (Auto) Neut # (Auto) Lymph # (Auto) [place] # (Auto) Eos # (Auto) Baso # (Auto) Immature Gran # (Auto) PT INR APTT PTT Ratio PT Mix Interpretation PTT Mix Interpretation Sodium Potassium Chloride Carbon Dioxide Anion Gap BUN Creatinine Est Cr Clr Drug Dosing Est GFR ( Amer) Est GFR (Non-Af Amer) BUN/Creatinine Ratio Glucose POC Glucose 122 H Calcium Ionized Calcium 1.03 L Phosphorus Stl [place] Cult Final SEE NOTE 11/16/22 11/16/22 11/17/22 16:03 20:28 04:06 WBC 5.98 RBC 2.52 L Hgb 8.3 L Hct 25.2 L MCV 100.0 MCH 32.9 MCHC 32.9 RDW Std Deviation 69.7 H RDW Coeff of Bradford 19.1 H Plt Count 279 MPV 9.3 L Immature Gran % (Auto) 1.8 Neut % (Auto) 86.4 Lymph % (Auto) 5.7 [place] % (Auto) 5.9 Eos % (Auto) 0.0 Baso % (Auto) 0.2 Neut # (Auto) 5.17 Lymph # (Auto) 0.34 L [place] # (Auto) 0.35 Eos # (Auto) 0.00 Baso # (Auto) 0.01 Immature Gran # (Auto) 0.11 PT INR APTT PTT Ratio PT Mix Interpretation PTT Mix Interpretation Sodium Potassium Chloride Carbon Dioxide Anion Gap BUN Creatinine Est Cr Clr Drug Dosing Est GFR ( Amer) Est GFR (Non-Af Amer) BUN/Creatinine Ratio Glucose POC Glucose 125 H 147 H Calcium Ionized Calcium Phosphorus Stl [place] Cult Final 11/17/22 11/17/22 11/17/22 04:06 04:06 08:03 WBC RBC Hgb Hct MCV MCH MCHC RDW Std Deviation RDW Coeff of Bradford Plt Count MPV Immature Gran % (Auto) Neut % (Auto) Lymph % (Auto) [place] % (Auto) Eos % (Auto) Baso % (Auto) Neut # (Auto) Lymph # (Auto) [place] # (Auto) Eos # (Auto) Baso # (Auto) Immature Gran # (Auto) PT 19.8 H INR 1.9 H APTT 44.2 H* PTT Ratio 1.6 PT Mix Interpretation Pending PTT Mix Interpretation Pending Sodium 135 L Potassium 4.0 Chloride 104 Carbon Dioxide 24 Anion Gap 7 BUN 12 Creatinine 0.95 Est Cr Clr Drug Dosing 61.3 Est GFR ( Amer) 71.8 Est GFR (Non-Af Amer) 62.0 BUN/Creatinine Ratio 12.6 Glucose 130 H POC Glucose 138 H Calcium 6.8 L Ionized Calcium Phosphorus 2.2 L D Stl [place] Cult Final PG Care Time/CCT Total # of Minutes Spent Total Time Spent with Patient: Total time spent is greater than 50% in coordination of care (as documented) at patient's floor/unit and/or counseling patient: Coding Level of Care Code 54657 SUB INP/OBS CARE 3/50MIN Diagnoses Acute kidney injury N17.9 Hypomagnesemia E83.42 Hypocalcemia E83.51 Metabolic acidosis with normal anion gap and bicarbonate losses E87.20 Vitamin D deficiency E55.9 Proximal renal tubular acidosis N25.89 High output ileostomy R19.8; Z93.2
[2022-11-17] MEDS ORDERED: CALCIUM GLUCONATE 10% 1,000 MG in SODIUM CHLOR 0.9% MINI-B 50 ML IV ONE (10:30)
[2022-11-17] MEDS: LOPERAMIDE LIQUID 120 ML BOTTLE PO SCH ×2 (11:10→13:05)
--- NOTE | 2022-11-17 11:22 | XRay Report ---
XR chest 1V portable HISTORY: Hypoxia. COMPARISON: Chest 11/15/2022. FINDINGS: No pneumothorax. The cardiac silhouette remains mildly enlarged. Bilateral pleural effusion s and bibasilar densities have progressed/developed in the interval. There is mild interstitial thick ening which may be chronic. There are surgical clips within the left axilla. IMPRESSION: 1. Interval progression/development of bibasilar densities and bilateral pleural effusions. This may represent a pneumonia and could be due to aspiration. 2. Mild interstitial thickening persists and is likely chronic. Mild congestive change could also hav e a similar appearance. ACT 112: Negative or not required by law. Electronically signed by: Sebastien Lovett M.D. 11/17/2022 11:21 AM
[2022-11-17] MEDS: MICONAZOLE NITRATE POWDER 85 GM EXT SCH ×2 (11:45→21:08)
[2022-11-17] MEDS: HYDROCORTISONE SOD 50 MG in SYRINGE 0 ML IV SCH ×2 (13:13→21:11)
[2022-11-17] MEDS ORDERED: PHYTONADIONE 5 MG TAB PO STA (13:53)
--- NOTE | 2022-11-17 13:57 | Hospitalist Progress Note ---
Date of Service November 17, 2022 Assessment & Plan (1) Septic shock: Plan: source - RLL pneumonia shock resolved, off pressors blood cx's negative urine cx from 11/14 negative (did have pseudomonas UTI early in stay - thus resolved) cortisol 20 copious IV fluids over the last 72 hours day #2 of stress-dose hydrocortisone zosyn day #3 MRSA screen + --> had been on Vanco but it was stopped in light of the severity of illness will re-institute MRSA coverage w/ Zyvox hold paxil while on such (2) RLL pneumonia: Plan: either aspiration given her dysphagia over the last 1-2 days vs nosocomial / gram negative etiology vs MRSA as above will repeat COVID testing due to clinical worsening overnight zosyn/zyvox repeat cxr am (3) Acute hypoxic respiratory failure: Plan: 2nd to RLL pneumonia; can't rule out progressive pneumonia vs pulm edema based on cxr today cont HFNC wean as tolerated cont abx, steroids add bronchodilators (4) Palmar-plantar erythrodysesthesia: Plan: all fingers affected and nearly all the toes uncertain if the skin findings are acral erythema / palmar-plantar erythrodysesthesia vs small vessel/cutaneous vasculitis vs other if former Xeloda likely to blame - Xeloda has been implicated in the dermatology literature to cause acral erythema Xeloda has been stopped exam findings are improving mixing study was negative making presence of antiphospholipid ab's or lupus anticoagulant unlikely (5) Metabolic acidosis with normal anion gap and bicarbonate losses: Plan: 2nd to high output losses via colostomy +/- proximal RTA - resolved w/ use of bicarbonate infusion remains on PO bicarbonate tabs stop IV carbonate infusion today as she likely is volume overloaded and 3rd spacing now (6) Anemia: Plan: H/H trended down over last 3 days suspect hemoconcentration followed by copious hydration led to drop in hemoglobin no overt GI bleeding no signs/symptoms of retroperitoneal bleeding no evidence of hemolysis PT/PTT/INR all elevated but fibrinogen is high and platelets are normal making DIC unlikely (7) Lethargy: Plan: suspect multifactorial causes for such including her previous acidosis and septic shock/RLL pneumonia resolved urine cx negative CT head neg for brain mets, ICH, etc ammonia level wnl pH has normalized (8) Acute kidney injury: Plan: resolved with fluids, supportive care appreciate nephro assistance espana stop basal IV Fluids today (9) (HFpEF) heart failure with preserved ejection fraction: Plan: echo this admission with normal EF I do believe she has pulm edema/volume overload today stop IV fluids consider diuretics (10) NSVT (nonsustained ventricular tachycardia): Plan: 13 beat run of NSVT several days ago no symptoms fortunately EF is preserved likely due to electrolyte issues keep mag near 2, keep K near 4 or higher, and keep calcium as close to normal as possible holding coreg due to #1 above (11) Hyponatremia: Plan: 2nd to OZIEL & volume depletion improved/resolved 135 today (12) Acute conjunctivitis of both eyes: Plan: resolved finish cipro eye drop course (13) Hypomagnesemia: Plan: resolved (14) Peripheral neuropathy: Plan: 2nd to prior chemo for breast ca? cont to hold gabapentin due to lethargy/altered MS (15) Malignant neoplasm of breast metastatic to bone: Plan: follows with Dr Montoya at [facility] Xeloda stopped recently due to concerns for hand/foot syndrome // acral erythema most recent PET scan 08/2022 with skeletal mets but no solid-organ mets CT a/p without intra-abdominal metastatic disease (16) Hypocalcemia: Plan: ongoing cont IV Ca replacement + calcitriol + ca/vit D supplementation per nephrology/icu attending levels improving (17) GERD (gastroesophageal reflux disease): Plan: PPI (18) Hyperlipidemia: Plan: hold statin (19) Depression: Plan: hold paxil due to zyvox usage (20) CAD (coronary artery disease): Plan: per records minimal nonobstructive CAD on prior heart cath (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: Plan: contributing to acid/base balance, etc defer management to nephrology (22) Colostomy in place: Plan: created 2017 due to complications from diverticulitis significant high output of stool recently appears noninfectious - stool biofire negative; a repeat cdiff test also negative has improved with immodium QID output now <1000cc in 24 hours (23) DM type 2 (diabetes mellitus, type 2): Plan: resolved last a1c <6% (24) History of DVT (deep vein thrombosis): Plan: was on Eliquis 5mg BID until the time of ICU transfer; also was having trouble swallowing pills around the time of ICU transfer resume Eliquis today (25) Severe protein-calorie malnutrition: Plan: near 15kg weight loss since June 2022 2nd to metastatic breast ca albumin low in mid 2's very poor appetite (26) Pseudomonas urinary tract infection: Plan: early in admission - s/p course of cipro for such repeat urine cx negative (27) Tobacco abuse: Plan: cont nicoderm patch (28) Coagulopathy: Plan: elevated PT/INR/PTT mixing study performed - both the PT and PTT corrected either vit K def OR factor deficiency give vitamin K 5mg x 1 repeat INR am correction during mixing study rules out inhibitor Plan updated Tg - pt's sister - by phone again RUE swelling - consider doppler study r/o DVT since she was off eliquis prognosis still guarded ok for Tx to PCU Admission and Anticipated Discharge Date Admission Date: November 08, 2022 Subjective Ms Ojeda was more awake today than at any point during this week she denied feeling short of breath still with cough she is very weak appetite remains poor at best overnight she began to require high-flow NC O2 for persistent hypoxia no levophed usage since yesterday denies any abd pain or n/v stool output via ostomy has been excellent Review of Systems Review of Systems: gen - no fevers or chills musculo - denies myalgias cv - no chest pain pulm - some wheezing Physical Exam Physical Exam: gen - looks better but still weak; no distress eyes - matting/crusting of lids resolved, conjunctiva more clear mouth - MMM neck - no JVD heart - RRR, s1 s2, no murmur lungs - course BS right base with some rales; wheezes R>L; occasional bronchial cough abd - soft NT ND BS+; ostomy left side of abdomen with brown stool ext - no edema, cap refill still about 3 seconds over the feet/toes skin - all fingertips x 10 and all toes x 10 (especially great hallux b/l) with peeling of skin - this is improved; erythematous tips of fingers/toes; erythema of palms; cap refill about 3 seconds of tips of fingers/toes; best that the hands/feet have looked this week musculo - generalized edema of right arm ; still no warmth Results & Data Results & Data Vital Signs (Past 12 Hours) Vital Signs Temp Pulse Pulse Resp BP Pulse Ox O2 Del Method 11/17/22 12:00 81 29 H 95 High Flow Nasal Cannula 11/17/22 12:00 135/87 11/17/22 11:00 77 24 100 High Flow Nasal Cannula 11/17/22 11:00 121/81 11/17/22 10:30 78 18 99 High Flow Nasal Cannula 11/17/22 10:30 131/81 11/17/22 10:00 82 100 High Flow Nasal Cannula 11/17/22 10:00 138/85 11/17/22 09:31 80 14 94 High Flow Nasal Cannula 11/17/22 09:31 127/65 11/17/22 07:30 82 11/17/22 12:07 71 18 98 High Flow Nasal Cannula 11/17/22 09:30 78 23 100 High Flow Nasal Cannula 11/17/22 09:01 79 18 91 High Flow Nasal Cannula 11/17/22 09:01 126/63 11/17/22 09:00 79 16 97 High Flow Nasal Cannula 11/17/22 08:31 152/71 H 11/17/22 08:31 86 93 High Flow Nasal Cannula 11/17/22 08:30 87 94 High Flow Nasal Cannula 11/17/22 08:01 84 16 95 High Flow Nasal Cannula 11/17/22 08:01 145/66 H 11/17/22 08:00 84 21 97 High Flow Nasal Cannula 11/17/22 07:31 89 16 88 L High Flow Nasal Cannula 11/17/22 07:31 152/82 H 11/17/22 07:30 87 94 High Flow Nasal Cannula 11/17/22 07:01 81 21 100 High Flow Nasal Cannula 11/17/22 07:01 141/86 H 11/17/22 07:00 81 27 H 97 High Flow Nasal Cannula 11/17/22 07:33 87 20 98 High Flow Nasal Cannula 11/17/22 04:00 37.4 C 11/17/22 05:25 76 18 90 High Flow Nasal Cannula 11/17/22 04:31 73 16 88 L 11/17/22 04:31 124/65 11/17/22 04:30 76 20 86 L 11/17/22 04:08 77 16 85 L 11/17/22 04:08 133/56 L 11/17/22 04:00 76 26 H 91 11/17/22 03:45 76 16 88 L 11/17/22 03:45 103/62 11/17/22 03:30 71 18 90 11/17/22 03:00 74 15 96 11/17/22 03:00 108/54 L 11/17/22 02:45 73 27 H 95 11/17/22 02:45 110/58 L 11/17/22 02:30 73 20 91 11/17/22 02:30 103/61 11/17/22 02:15 76 25 H 87 L 11/17/22 02:15 101/54 L 11/17/22 02:00 76 23 88 L 11/17/22 02:08 Oxymask O2 Flow Rate FiO2 11/17/22 12:00 11/17/22 12:00 11/17/22 11:00 11/17/22 11:00 11/17/22 10:30 11/17/22 10:30 11/17/22 10:00 11/17/22 10:00 11/17/22 09:31 11/17/22 09:31 11/17/22 07:30 11/17/22 12:07 30 90 11/17/22 09:30 11/17/22 09:01 11/17/22 09:01 11/17/22 09:00 11/17/22 08:31 11/17/22 08:31 11/17/22 08:30 11/17/22 08:01 11/17/22 08:01 11/17/22 08:00 11/17/22 07:31 11/17/22 07:31 11/17/22 07:30 11/17/22 07:01 11/17/22 07:01 11/17/22 07:00 11/17/22 07:33 30 100 11/17/22 04:00 11/17/22 05:25 30 100 11/17/22 04:31 11/17/22 04:31 11/17/22 04:30 11/17/22 04:08 11/17/22 04:08 11/17/22 04:00 11/17/22 03:45 11/17/22 03:45 11/17/22 03:30 11/17/22 03:00 11/17/22 03:00 11/17/22 02:45 11/17/22 02:45 11/17/22 02:30 11/17/22 02:30 11/17/22 02:15 11/17/22 02:15 11/17/22 02:00 11/17/22 02:08 8 Laboratory Results Laboratory Results - last 24 hr 11/12/22 11/12/22 11/17/22 Unknown Unknown 04:06 PT 19.8 H INR 1.9 H APTT 44.2 H* PTT Ratio 1.6 PT Mix Interpretation PT Corrected PTT Mix Interpretation APTT Corrected POC Glucose Stl Yersinia Cult Final SEE NOTE Stool Comments SEE NOTE SARS-CoV-2 (PCR) Giardia Antigen SEE NOTE 11/17/22 11/17/22 11/17/22 08:03 11:37 17:12 PT INR APTT PTT Ratio PT Mix Interpretation PTT Mix Interpretation POC Glucose 138 H 136 H 161 H Stl [place] Cult Final Stool Comments SARS-CoV-2 (PCR) Giardia Antigen 11/17/22 11/17/22 20:29 Unknown PT INR APTT PTT Ratio PT Mix Interpretation PTT Mix Interpretation POC Glucose 138 H Stl Yers[place] Cult Final Stool Comments SARS-CoV-2 (PCR) NEGATIVE Giardia Antigen PG Care Time/CCT Total # of Minutes Spent Total Time Spent with Patient: Total time spent is greater than 50% in coordination of care (as documented) at patient's floor/unit and/or counseling patient: Coding Level of Care Code 91077 SUB INP/OBS CARE 3/50MIN Diagnoses Septic shock A41.9; R65.21 RLL pneumonia J18.9 Acute hypoxic respiratory failure J96.01 Palmar-plantar erythrodysesthesia L27.1 Metabolic acidosis with normal anion gap and bicarbonate losses E87.20 Anemia D64.9 Lethargy R53.83 Acute kidney injury N17.9 (HFpEF) heart failure with preserved ejection fraction I50.30 NSVT (nonsustained ventricular tachycardia) I47.29 Hyponatremia E87.1 Acute conjunctivitis of both eyes H10.33 Hypomagnesemia E83.42 Peripheral neuropathy G62.9 Malignant neoplasm of breast metastatic to bone C50.919; C79.51 Hypocalcemia E83.51 GERD (gastroesophageal reflux disease) K21.9 Hyperlipidemia E78.5 Depression F32.9 CAD (coronary artery disease) I25.10 Proximal renal tubular acidosis N25.[address] Z93.3 DM type 2 (diabetes mellitus, type 2) E11.9 History of DVT (deep vein thrombosis) Z86.718 Severe protein-calorie malnutrition E43 Pseudomonas urinary tract infection N39.0; B96.5 Tobacco abuse Z72.0 Coagulopathy D68.9
[2022-11-17] MEDS ORDERED: LINEZOLID 600 MG/300 ML D5W IV SCH (14:30)
[2022-11-17] MEDS: LINEZOLID 600 MG/300 ML BAG IV SCH (14:40)
[2022-11-17] MEDS: ALBUTEROL HFA 8 GM INHALER INH SCH ×2 (14:56→18:21)
[2022-11-17] MEDS: IPRATROPIUM BROMIDE HFA INHALER INH SCH ×2 (14:56→18:21)
[2022-11-17] MEDS ORDERED: IPRATROPIUM BROMIDE/ALBUTEROL respimat INH INH SCH (17:00)
[2022-11-17] MEDS: guaiFENesin SUGAR FREE 100 MG/5 ML UDC PO SCH ×2 (17:20→21:08)
[2022-11-17] MEDS: APIXABAN 5 MG TABLET PO SCH (21:10)
[2022-11-18] MEDS: LINEZOLID 600 MG/300 ML BAG IV SCH ×2 (03:31→16:50)
[2022-11-18] MEDS: PIPERACILLIN/TAZOBACTAM 4.5 GM in DEXTROSE 5% MINI-B 100 ML IV SCH ×3 (04:23→21:38)
[2022-11-18] MEDS: HYDROCORTISONE SOD 50 MG in SYRINGE 0 ML IV SCH (04:24)
[2022-11-18] MEDS: LOPERAMIDE LIQUID 120 ML BOTTLE PO SCH ×3 (04:26→12:16)
[2022-11-18 06:13] LABS: Basophils # (auto) 0.01 K/uL (0.00-0.20); Basophils % (auto) 0.1 %; Eosinophils # (auto) 0.01 K/uL (0.00-0.50); Eosinophils % (auto) 0.1 %; Hematocrit (blood only) 25.2 % (37.0-47.0); Hemoglobin 8.6 g/dl (12.0-16.0); Immature Granulocytes # (auto) 0.14 K/uL (0.01-0.20); Immature Granulocytes % (auto) 1.8 %; Lymphocytes # (auto) 0.48 K/uL (1.20-3.40); Mean Corpuscular Hgb Conc 34.1 g/dL (32.0-36.0); Mean Corpuscular Volume 96.6 fL (80.0-100.0); Mean Platelet Volume 9.1 fL (9.4-12.4); Monocytes # (auto) 0.52 K/uL (0.11-0.59); Monocytes % (auto) 6.5 %; Neutrophils # (auto) 6.78 K/uL (1.40-6.50); Neutrophils % (auto) 85.5 %; Platelet Count 284 K/uL (130-400); RDW Coefficient of Variation 18.8 % (11.5-14.5); Red Blood Count 2.61 M/uL (4.20-5.40); White Blood Count 7.94 K/ul (4.8-10.8)
[2022-11-18 06:31] LABS: BUN Creatinine Ratio 15.1 (10-20); Calcium 6.4 mg/dl (8.6-10.3); Creatinine Clr Calc Pharmacy 67.7 ml/min; Est GFR (Non-African American) 69.9 ml/min; Phosphorus 2.2 mg/dl (2.5-4.9); Potassium 3.9 mmol/L (3.5-5.1)
[2022-11-18 06:42] LABS: INR 1.8 (0.9-1.1)
[2022-11-18] MEDS: ALBUTEROL HFA 8 GM INHALER INH SCH ×4 (06:54→19:31)
[2022-11-18] MEDS: IPRATROPIUM BROMIDE HFA INHALER INH SCH ×4 (06:54→19:32)
[2022-11-18] MEDS ORDERED: STAT IV STA (07:40)
[2022-11-18] MEDS ORDERED: FUROSEMIDE INJ 20 MG/2 ML VIAL IV ONE (07:42)
[2022-11-18] MEDS ORDERED: POTASSIUM CHLORIDE PWD 20 MEQ PACK PO ONE (07:43)
[2022-11-18] MEDS: SODIUM BICARBONATE 650 MG TAB PO SCH ×2 (09:24→21:40)
[2022-11-18] MEDS: NICOTINE 14 MG/24 HR PATCH TD SCH (09:24)
[2022-11-18] MEDS: guaiFENesin SUGAR FREE 100 MG/5 ML UDC PO SCH ×4 (09:24→21:38)
[2022-11-18] MEDS: POT PHOSPHATE MONOBASIC W/ SOD TAB PO SCH ×4 (09:24→21:39)
[2022-11-18] MEDS: CALCIUM GLUCONATE 10% 1,000 MG in SODIUM CHLOR 0.9% MINI-B 50 ML IV SCH ×2 (09:25→10:28)
[2022-11-18] MEDS: CALCITRIOL 0.25 MCG CAPSULE PO SCH (09:36)
[2022-11-18] MEDS: PANTOprazole 40 MG TAB PO SCH (09:36)
[2022-11-18] MEDS: APIXABAN 5 MG TABLET PO SCH ×2 (09:37→21:38)
[2022-11-18] MEDS: MICONAZOLE NITRATE POWDER 85 GM EXT SCH ×2 (09:37→21:41)
[2022-11-18] MEDS: CIPROFLOXACIN HCL 0.3% OP SOLN 2.5 ML BTL OPB SCH ×4 (10:04→21:39)
[2022-11-18] MEDS: INSULIN ASPART PER UNIT CHARGE SC SCH ×4 (10:28→21:39)
[2022-11-18] MEDS: POTASSIUM CHLORIDE CRTAB 20 MEQ TABCR PO SCH (12:11)
--- NOTE | 2022-11-18 13:10 | Hospitalist Progress Note ---
Date of Service November 18, 2022 Assessment & Plan (1) Septic shock: Plan: source - RLL pneumonia shock resolved, off pressors blood cx's negative urine cx from 11/14 negative (did have pseudomonas UTI early in stay - thus resolved) cortisol 20 s/p stress-dose IV hydrocortisone - now off zosyn day #4 MRSA screen + --> had been on Vanco but it was stopped in light of the severity of illness re-instituted MRSA coverage w/ Zyvox - day #2 of such hold paxil while on such (2) RLL pneumonia: Plan: either aspiration given her recent dysphagia vs nosocomial / gram negative etiology vs MRSA as above repeat COVID testing negative cont zosyn/zyvox repeat cxr am (3) Acute hypoxic respiratory failure: Plan: 2nd to RLL pneumonia; can't rule out progressive pneumonia vs pulm edema based on most recent cxr although FiO2 requirement has improved since yesterday (down from 90 to 60% today) cont HFNC wean as tolerated cont abx, steroids cont bronchodilators (4) Palmar-plantar erythrodysesthesia: Plan: all fingers affected and nearly all the toes uncertain if the skin findings are acral erythema / palmar-plantar erythrodysesthesia vs small vessel/cutaneous vasculitis vs other if former Xeloda likely to blame - Xeloda has been implicated in the dermatology literature to cause acral erythema Xeloda has been stopped exam findings cont to improve mixing study was negative making presence of antiphospholipid ab's or lupus anticoagulant unlikely (5) Metabolic acidosis with normal anion gap and bicarbonate losses: Plan: 2nd to high output losses via colostomy +/- proximal RTA - resolved w/ use of bicarbonate infusion remains on PO bicarbonate tabs acidosis resolved (6) Anemia: Plan: no overt GI bleeding no signs/symptoms of retroperitoneal bleeding no evidence of hemolysis PT/PTT/INR all elevated but fibrinogen was high and platelets are normal making DIC unlikely (7) Lethargy: Plan: suspect multifactorial causes for such including her previous acidosis and septic shock/RLL pneumonia had better day yesterday with more energy, now back to being lethargic/tired probably had some response in lethargy to stress dose steroids urine cx negative CT head neg for brain mets, ICH, etc ammonia level wnl pH has normalized (8) Acute kidney injury: Plan: resolved cont espana IV fluids are off give lasix 20mg x 1 today to promote net neg fluid balance as she may have some pulmonary edema (9) (HFpEF) heart failure with preserved ejection fraction: Plan: echo this admission with normal EF lasix 20mg x 1 today follow response (10) NSVT (nonsustained ventricular tachycardia): Plan: 13 beat run of NSVT several days ago no symptoms fortunately EF is preserved likely due to electrolyte issues keep mag near 2, keep K near 4 or higher, and keep calcium as close to normal as possible holding coreg due to #1 above (11) Hyponatremia: Plan: 2nd to OZIEL & volume depletion resolved (12) Acute conjunctivitis of both eyes: Plan: resolved finish cipro eye drop course (13) Hypomagnesemia: Plan: resolved (14) Peripheral neuropathy: Plan: 2nd to prior chemo for breast ca? cont to hold gabapentin due to lethargy/altered MS (15) Malignant neoplasm of breast metastatic to bone: Plan: follows with Dr Montoya at [facility] Xeloda stopped recently due to concerns for hand/foot syndrome // acral erythema most recent PET scan 08/2022 with skeletal mets but no solid-organ mets CT a/p without intra-abdominal metastatic disease has severe failure to thrive (16) Hypocalcemia: Plan: ongoing give 2 amps IV Ca replacement today cont calcitriol + ca/vit D supplementation for low phos - order PO phos replacement (17) GERD (gastroesophageal reflux disease): Plan: PPI (18) Hyperlipidemia: Plan: hold statin (19) Depression: Plan: hold paxil due to zyvox usage (20) CAD (coronary artery disease): Plan: per records minimal nonobstructive CAD on prior heart cath (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: Plan: stable on bicarb supplementation (22) Colostomy in place: Plan: created 2018 due to complications from diverticulitis significant high output of stool recently appears noninfectious - stool biofire negative; a repeat cdiff test also negative had improved with immodium QID output now <1000cc in 24 hours but stools back to liquid consistently likely due to broad-spectrum IV abx therapy (23) DM type 2 (diabetes mellitus, type 2): Plan: resolved last a1c <6% (24) History of DVT (deep vein thrombosis): Plan: Eliquis BID (25) Severe protein-calorie malnutrition: Plan: near 15kg weight loss since June 2022 2nd to metastatic breast ca albumin low in mid 2's very poor appetite poor candidate for enteral or parenteral feedings - discussed this with pt & pt's sister today (26) Pseudomonas urinary tract infection: Plan: early in admission - s/p course of cipro for such repeat urine cx negative resolved (27) Tobacco abuse: Plan: cont nicoderm patch (28) Coagulopathy: Plan: elevated PT/INR/PTT mixing study performed - both the PT and PTT corrected either vit K def OR factor deficiency gave vitamin K 5mg x 1 repeat INR modestly improved correction during mixing study rules out inhibitor Plan updated Tg - pt's sister - at bedside today prognosis guarded if not general improvement tomorrow will recommend transitioning to palliative care pathway Admission and Anticipated Discharge Date Admission Date: November 08, 2022 Subjective tele overnight wnl Tg - pt's sister - was at bedside during the visit pt with eyes closed much like most encounters poor appetite per pt's sister little intake of anything minimal cough denies dyspnea at rest has pain in her left arm, upper biceps area when asked what she wants to do with her care she said "let's give this a couple more days" I expressed my concerns about her lack of nutrition (nothing consistent in 7+ days) ostomy putting out pure liquid stool Review of Systems Review of Systems: cv - no chest pain or orthopnea pulm - denies dyspnea; no sputum GI - no abd pain, no N/V Physical Exam Physical Exam: gen - looks poorly again today; weak; eyes closed entire time eyes - conjunctivitis resolved mouth - MMM neck - no JVD heart - RRR, s1 s2, no murmur lungs - decreased BS bases; course BS right base with rales; less wheezes today abd - soft NT ND BS+; ostomy left side of abdomen with liquid stool skin - all fingertips x 10 and all toes x 10 -- erythematous tips of fingers/toes improved; erythema of palms improved; cap refill 3 seconds of tips of fingers/toes musculo - generalized edema of right arm ; still no warmth; left arm - no deformity of upper arm Results & Data Results & Data Vital Signs (Past 12 Hours) Vital Signs Temp Pulse Pulse Resp BP Pulse Ox O2 Del Method 11/18/22 11:58 37.0 C 83 16 117/73 94 High Flow Nasal Cannula 11/18/22 08:00 84 11/18/22 08:00 High Flow Nasal Cannula 11/18/22 11:04 86 20 97 High Flow Nasal Cannula 11/18/22 07:51 37.1 C 87 18 121/77 90 High Flow Nasal Cannula 11/18/22 06:54 82 20 97 High Flow Nasal Cannula 11/18/22 05:02 76 14 129/80 96 High Flow Nasal Cannula 11/18/22 03:47 73 92 High Flow Nasal Cannula O2 Flow Rate FiO2 11/18/22 11:58 11/18/22 08:00 11/18/22 08:00 30 95 11/18/22 11:04 30 70 11/18/22 07:51 11/18/22 06:54 30 80 11/18/22 05:02 11/18/22 03:47 30 80 Laboratory Results Laboratory Results - last 24 hr 11/17/22 11/17/22 11/17/22 17:12 20:29 Unknown WBC RBC Hgb Hct MCV MCH MCHC RDW Std Deviation RDW Coeff of Bradford Plt Count MPV Immature Gran % (Auto) Neut % (Auto) Lymph % (Auto) Lassen % (Auto) Eos % (Auto) Baso % (Auto) Neut # (Auto) Lymph # (Auto) Lassen # (Auto) Eos # (Auto) Baso # (Auto) Immature Gran # (Auto) PT INR Sodium Potassium Chloride Carbon Dioxide Anion Gap BUN Creatinine Est Cr Clr Drug Dosing Est GFR ( Amer) Est GFR (Non-Af Amer) BUN/Creatinine Ratio Glucose POC Glucose 161 H 138 H Calcium Phosphorus SARS-CoV-2 (PCR) NEGATIVE 11/18/22 11/18/22 11/18/22 05:59 05:59 05:59 WBC 7.94 RBC 2.61 L Hgb 8.6 L Hct 25.2 L MCV 96.6 MCH 33.0 MCHC 34.1 RDW Std Deviation 66.0 H RDW Coeff of Bradford 18.8 H Plt Count 284 MPV 9.1 L Immature Gran % (Auto) 1.8 Neut % (Auto) 85.5 Lymph % (Auto) 6.0 Lassen % (Auto) 6.5 Eos % (Auto) 0.1 Baso % (Auto) 0.1 Neut # (Auto) 6.78 H Lymph # (Auto) 0.48 L Lassen # (Auto) 0.52 Eos # (Auto) 0.01 Baso # (Auto) 0.01 Immature Gran # (Auto) 0.14 PT 19.0 H INR 1.8 H Sodium 134 L Potassium 3.9 Chloride 102 Carbon Dioxide 26 Anion Gap 6 BUN 13 Creatinine 0.86 Est Cr Clr Drug Dosing 67.7 Est GFR ( Amer) 81.0 Est GFR (Non-Af Amer) 69.9 BUN/Creatinine Ratio 15.1 Glucose 164 H POC Glucose Calcium 6.4 L Phosphorus 2.2 L SARS-CoV-2 (PCR) 11/18/22 11/18/22 07:21 11:16 WBC RBC Hgb Hct MCV MCH MCHC RDW Std Deviation RDW Coeff of Bradford Plt Count MPV Immature Gran % (Auto) Neut % (Auto) Lymph % (Auto) Lassen % (Auto) Eos % (Auto) Baso % (Auto) Neut # (Auto) Lymph # (Auto) Lassen # (Auto) Eos # (Auto) Baso # (Auto) Immature Gran # (Auto) PT INR Sodium Potassium Chloride Carbon Dioxide Anion Gap BUN Creatinine Est Cr Clr Drug Dosing Est GFR ( Amer) Est GFR (Non-Af Amer) BUN/Creatinine Ratio Glucose POC Glucose 143 H 126 H Calcium Phosphorus SARS-CoV-2 (PCR) PG Care Time/CCT Total # of Minutes Spent Total Time Spent with Patient: Total time spent is greater than 50% in coordination of care (as documented) at patient's floor/unit and/or counseling patient: Coding Level of Care Code 48886 SUB INP/OBS CARE 3/50MIN Diagnoses Septic shock A41.9; R65.21 RLL pneumonia J18.9 Acute hypoxic respiratory failure J96.01 Palmar-plantar erythrodysesthesia L27.1 Metabolic acidosis with normal anion gap and bicarbonate losses E87.20 Anemia D64.9 Lethargy R53.83 Acute kidney injury N17.9 (HFpEF) heart failure with preserved ejection fraction I50.30 NSVT (nonsustained ventricular tachycardia) I47.29 Hyponatremia E87.1 Acute conjunctivitis of both eyes H10.33 Hypomagnesemia E83.42 Peripheral neuropathy G62.9 Malignant neoplasm of breast metastatic to bone C50.919; C79.51 Hypocalcemia E83.51 GERD (gastroesophageal reflux disease) K21.9 Hyperlipidemia E78.5 Depression F32.9 CAD (coronary artery disease) I25.10 Proximal renal tubular acidosis N25.[address] Z93.3 DM type 2 (diabetes mellitus, type 2) E11.9 History of DVT (deep vein thrombosis) Z86.718 Severe protein-calorie malnutrition E43 Pseudomonas urinary tract infection N39.0; B96.5 Tobacco abuse Z72.0 Coagulopathy D68.9
[2022-11-18] MEDS: oxyCODONE HCL IR 5 MG TAB (IMMEDIATE RELEASE) PO PRN (13:23)
[2022-11-18] MEDS: LOPERAMIDE HCL 2 MG CAP PO SCH ×2 (18:06→21:39)
[2022-11-19] MEDS: LINEZOLID 600 MG/300 ML BAG IV SCH ×2 (01:13→17:29)
[2022-11-19] MEDS: PIPERACILLIN/TAZOBACTAM 4.5 GM in DEXTROSE 5% MINI-B 100 ML IV SCH ×3 (02:59→21:00)
[2022-11-19] MEDS: ALBUTEROL HFA 8 GM INHALER INH SCH ×4 (07:07→19:43)
[2022-11-19] MEDS: IPRATROPIUM BROMIDE HFA INHALER INH SCH ×4 (07:08→19:42)
[2022-11-19 07:31] LABS: Hemoglobin 8.9 g/dl (12.0-16.0); Mean Corpuscular Hemoglobin 32.8 pg (25.0-34.0); Mean Corpuscular Volume 99.6 fL (80.0-100.0); Mean Platelet Volume 9.1 fL (9.4-12.4); Platelet Count 267 K/uL (130-400); RDW Coefficient of Variation 18.8 % (11.5-14.5); RDW Standard Deviation 67.3 fL (36.4-46.3); Red Blood Count 2.71 M/uL (4.20-5.40); White Blood Count 6.82 K/ul (4.8-10.8)
[2022-11-19 08:34] LABS: BUN Creatinine Ratio 13.8 (10-20); Calcium 6.4 mg/dl (8.6-10.3); Creatinine Clr Calc Pharmacy 61.9 ml/min; Est GFR (African American) 72.8 ml/min; Est GFR (Non-African American) 62.8 ml/min; Potassium 2.9 mmol/L (3.5-5.1)
[2022-11-19] MEDS: LOPERAMIDE HCL 2 MG CAP PO SCH ×4 (08:51→21:34)
[2022-11-19] MEDS: APIXABAN 5 MG TABLET PO SCH ×2 (08:51→21:30)
[2022-11-19] MEDS: POT PHOSPHATE MONOBASIC W/ SOD TAB PO SCH ×4 (08:51→21:35)
[2022-11-19] MEDS: SODIUM BICARBONATE 650 MG TAB PO SCH ×2 (08:51→21:36)
[2022-11-19] MEDS: guaiFENesin SUGAR FREE 100 MG/5 ML UDC PO SCH (08:51)
[2022-11-19] MEDS: NICOTINE 14 MG/24 HR PATCH TD SCH (08:51)
[2022-11-19] MEDS: CALCITRIOL 0.25 MCG CAPSULE PO SCH (08:51)
[2022-11-19] MEDS: PANTOprazole 40 MG TAB PO SCH (08:51)
[2022-11-19] MEDS: CIPROFLOXACIN HCL 0.3% OP SOLN 2.5 ML BTL OPB SCH ×4 (08:52→21:31)
[2022-11-19] MEDS: MICONAZOLE NITRATE POWDER 85 GM EXT SCH ×2 (08:53→21:35)
[2022-11-19] MEDS ORDERED: STAT IV STA (08:59)
[2022-11-19] MEDS: POTASSIUM CHLORIDE PWD 20 MEQ PACK PO SCH ×3 (09:48→21:36)
[2022-11-19] MEDS: CALCIUM GLUCONATE 10% 1,000 MG in SODIUM CHLOR 0.9% MINI-B 50 ML IV SCH ×2 (09:48→10:14)
[2022-11-19] MEDS: INSULIN ASPART PER UNIT CHARGE SC SCH ×4 (10:01→21:32)
[2022-11-19 10:04] LABS: Magnesium 1.4 mg/dl (1.7-2.4)
[2022-11-19] MEDS: POTASSIUM CHLORIDE / WTR 10 MEQ/100 ML PLCT IV SCH ×2 (10:42→11:54)
--- NOTE | 2022-11-19 11:48 | XRay Report ---
XR chest 1V portable CLINICAL HISTORY: RLL pneumonia, ?CHF, interval change TECHNIQUE: Single frontal radiograph of the chest was obtained. Comparison: Comparison is made to chest radiograph 11/18/2019 FINDINGS: No lines and tubes are seen. The cardiomediastinal silhouette is stable. ) Left lower lung airspace o pacities are seen. Moderate right pleural effusion and possible small left pleural effusion. IMPRESSION: 1. Right greater than left airspace opacities. which may represent atelectasis, pneumonia, and/or as piration. 2. Moderate right and small left pleural effusions. ACT 112: Negative or not required by law. Electronically signed by: Tucker Johnson M.D. 11/19/2022 11:46 AM
[2022-11-19] MEDS ORDERED: ALBUT/IPRATROP 3MG/0.5MG NEB 3 ML VIAL NEB ONE (12:44)
--- NOTE | 2022-11-19 12:55 | Hospitalist Progress Note ---
Date of Service November 19, 2022 Assessment & Plan (1) Septic shock: Plan: source - RLL pneumonia required ICU stay x 48 hours with pressor support shock resolved - now on PCU status blood cx's negative urine cx from 11/14 negative (did have pseudomonas UTI early in stay - thus resolved) cortisol 20 s/p stress-dose IV hydrocortisone - now off zosyn day #5 MRSA screen + --> had been on Vanco but it was stopped in light of the severity of illness re-instituted MRSA coverage w/ Zyvox - day #3 hold paxil while on zyvox (2) RLL pneumonia: Plan: either aspiration given her recent dysphagia vs nosocomial / gram negative etiology vs MRSA as above repeat COVID testing negative cont zosyn/zyvox repeat cxr worse today - there are infiltrates in the L base as well along with worsening effusions (3) Acute hypoxic respiratory failure: Plan: 2nd to RLL pneumonia along with probable pulmonary edema has required HFNC for the last 48 hours but FiO2 requirement continues to improve - was on 90%, now <50% cont to wean as tolerated cont abx, steroids cont bronchodilators having hard time getting mucous up - start saline nebs BID duoneb x 1 now (4) Palmar-plantar erythrodysesthesia: Plan: all fingers affected and nearly all the toes uncertain if the skin findings are acral erythema / palmar-plantar erythrodysesthesia vs small vessel/cutaneous vasculitis vs other if former Xeloda likely to blame - Xeloda has been implicated in the dermatology literature to cause acral erythema Xeloda has been stopped exam findings cont to improve slowly; she has no pain in her fingers or toes mixing study was negative making presence of antiphospholipid ab's or lupus anticoagulant unlikely (5) Metabolic acidosis with normal anion gap and bicarbonate losses: Plan: 2nd to high output losses via colostomy +/- proximal RTA - resolved w/ use of bicarbonate infusion remains on PO bicarbonate tabs acidosis resolved (6) Anemia: Plan: no overt GI bleeding no signs/symptoms of retroperitoneal bleeding no evidence of hemolysis H/H stable today (7) Lethargy: Plan: suspect multifactorial causes for such including her previous acidosis and septic shock/RLL pneumonia mentation improved today; she was an active participant in our conversation (8) Acute kidney injury: Plan: resolved cont espana s/p lasix yesterday to maintain net neg balance in light of pulm edema & d eveloping anasarca (9) (HFpEF) heart failure with preserved ejection fraction: Plan: echo this admission with normal EF lasix 20mg x 1 11/18 with good response but K, Mag, and Ca are all low today will need to replace these until further lasix can be given (10) NSVT (nonsustained ventricular tachycardia): Plan: 13 beat run of NSVT several days ago no symptoms fortunately EF is preserved likely due to electrolyte issues keep mag near 2, keep K near 4 or higher, and keep calcium as close to normal as possible holding coreg due to #1 above (11) Hyponatremia: Plan: 2nd to OZIEL & volume depletion resolved (12) Acute conjunctivitis of both eyes: Plan: resolved finish cipro eye drop course (11/21/22 stop date) (13) Hypomagnesemia: Plan: resolved, but now recurred again due to lasix & copious liquid stool output from ostomy replace 2 grams mag sulfate replace low calcium (14) Peripheral neuropathy: Plan: 2nd to prior chemo for breast ca? cont to hold gabapentin due to lethargy/altered MS (15) Malignant neoplasm of breast metastatic to bone: Plan: follows with Dr Montoya at [facility] Xeloda stopped recently due to concerns for hand/foot syndrome // acral erythema most recent PET scan 08/2022 with skeletal mets but no solid-organ mets CT a/p without intra-abdominal metastatic disease has severe failure to thrive (16) Hypocalcemia: Plan: ongoing give 2 amps IV Ca replacement once again today cont calcitriol + ca/vit D supplementation cont PO phos replacement (17) GERD (gastroesophageal reflux disease): Plan: PPI (18) Hyperlipidemia: Plan: hold statin (19) Depression: Plan: hold paxil due to zyvox usage (20) CAD (coronary artery disease): Plan: per records minimal nonobstructive CAD on prior heart cath (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: Plan: stable on bicarb supplementation (22) Colostomy in place: Plan: created 2017 due to complications from diverticulitis significant high output of stool recently appears noninfectious - stool biofire negative; a repeat cdiff test also negative had improved with immodium QID but stool output picking up again in the setting of broad-spectrum IV abx therapy consider colestipol consider octreotide if stools worsen (23) DM type 2 (diabetes mellitus, type 2): Plan: resolved last a1c <6% (24) History of DVT (deep vein thrombosis): Plan: Eliquis BID (25) Severe protein-calorie malnutrition: Plan: near 15kg weight loss since June 2022 2nd to metastatic breast ca albumin low in mid 2's very poor appetite - has not had adequate nutrition in 10+ days poor candidate for enteral or parenteral feedings palliative care consultation on 11/20 (26) Pseudomonas urinary tract infection: Plan: early in admission - s/p course of cipro for such repeat urine cx negative resolved (27) Tobacco abuse: Plan: cont nicoderm patch (28) Coagulopathy: Plan: elevated PT/INR/PTT mixing study performed - both the PT and PTT corrected either vit K def OR factor deficiency gave vitamin K 5mg x 1 repeat INR modestly improved correction during mixing study rules out inhibitor (29) Goals of care, counseling/discussion: Plan: very lengthy bedside visit today - likely 40 minutes in duration in total discussed the topics listed under "subjective" in this note plan - palliative care consult on 11/20 (30) Hypokalemia: Plan: replace IV & PO replace low mag replace low calcium no diuretic therapy today Plan updated Tg - pt's sister - at bedside today updated pt's friend Patsy at bedside prognosis very poor we are certainly headed towards a more palliative / comfort-based care plan in meantime cont IV abx, etc Admission and Anticipated Discharge Date Admission Date: November 08, 2022 Subjective tele overnight wnl patient continues to have severe generalized weakness bites of food intake at breakfast and lunch today her friend notes that she coughs while trying to eat staff note she coughs and has trouble swallowing meds has persistent cough - can't get anything up still with left arm pain no dyspnea ostomy with pure liquid stool - copious during the visit her sister Tg walked in her friend Patsy was also present we had about a 30 min discussion regarding current state of health, options for care, her personal goals of care, etc discussed best case scenario - ongoing Rx of pneumonia, electrolyte issues, etc - followed by lengthy rehab stay at a SNF we discussed that rehab likely would not go well Tg her sister mentioned she has not been OOB in 12-13 days has not really eaten in 10+ days discussed palliative care consultation - she was agreeable towards the end of our discussion she stated "I really want to go home" Tg is supportive of that but is concerned about not being able to take care of her adequately Review of Systems Review of Systems: gen - weak, fatigue, no appetite cv - no pain GI - no abd pain; no vomiting pulm - no sputum production Physical Exam Physical Exam: gen - she had her eyes open today, she asked some questions, she was awake & listening, gave appropriate answers to questions, etc; severe bronchial cough present during the visit eyes - conjunctivitis resolved b/l mouth - MMM neck - no JVD heart - RRR, s1 s2, no murmur lungs - decreased BS right base about [address] up back; course/rhonchorous BS on left; slight crackle L base; CTA b/l anteriorly abd - soft NT ND BS+; ostomy left side of abdomen with copious liquid stool skin - all fingertips x 10 and all toes x 10 -- erythematous tips of fingers/toes improved; erythema of palms improved; cap refill 3 seconds of tips of fingers/toes musculo - generalized edema of right arm - a little worse today; anasarca developing of all limbs including thighs/lower legs psych - flat affect, but awake & alert and retains capacity Results & Data Results & Data Vital Signs (Past 12 Hours) Vital Signs Temp Pulse Resp BP Pulse Ox O2 Del Method O2 Flow Rate 11/19/22 10:53 84 18 100 High Flow Nasal Cannula 25 11/19/22 09:00 37.4 C 86 18 99/60 L 90 High Flow Nasal Cannula 11/19/22 07:08 84 18 92 High Flow Nasal Cannula 25 11/19/22 04:27 88 18 93 High Flow Nasal Cannula 25 11/19/22 02:54 36.7 C 82 20 104/56 L 93 High Flow Nasal Cannula FiO2 11/19/22 10:53 50 11/19/22 09:00 11/19/22 07:08 50 11/19/22 04:27 50 11/19/22 02:54 Laboratory Results Laboratory Results - last 24 hr 10/14/23 10/14/23 10/15/23 16:11 21:01 07:02 WBC 6.82 RBC 2.71 L Hgb 8.9 L Hct 27.0 L MCV 99.6 MCH 32.8 MCHC 33.0 RDW Std Deviation 67.3 H RDW Coeff of Bradford 18.8 H Plt Count 267 MPV 9.1 L Sodium Potassium Chloride Carbon Dioxide Anion Gap BUN Creatinine Est Cr Clr Drug Dosing Est GFR ( Amer) Est GFR (Non-Af Amer) BUN/Creatinine Ratio Glucose POC Glucose 112 H 104 H Calcium Magnesium 11/19/22 11/19/22 11/19/22 07:02 07:39 11:28 WBC RBC Hgb Hct MCV MCH MCHC RDW Std Deviation RDW Coeff of Bradford Plt Count MPV Sodium 136 Potassium 2.9 L D Chloride 101 Carbon Dioxide 28 Anion Gap 7 BUN 13 Creatinine 0.94 Est Cr Clr Drug Dosing 61.9 Est GFR ( Amer) 72.8 Est GFR (Non-Af Amer) 62.8 BUN/Creatinine Ratio 13.8 Glucose 96 POC Glucose 101 H 99 Calcium 6.4 L Magnesium 1.4 L Diagnostic Findings Chest X-Ray 11/19/22 07:00 XR chest 1V portable CLINICAL HISTORY: RLL pneumonia, ?CHF, interval change TECHNIQUE: Single frontal radiograph of the chest was obtained. Comparison: Comparison is made to chest radiograph 11/18/2019 FINDINGS: No lines and tubes are seen. The cardiomediastinal silhouette is stable. ) Left lower lung airspace opacities are seen. Moderate right pleural effusion and possible small left pleural effusion. IMPRESSION: 1. Right greater than left airspace opacities. which may represent atelectasis, pneumonia, and/or aspiration. 2. Moderate right and small left pleural effusions. ACT 112: Negative or not required by law. Electronically signed by: Tucker Johnson M.D. 11/19/2022 11:46 AM PG Care Time/CCT Total # of Minutes Spent Total Time Spent with Patient: Total time spent is greater than 50% in coordination of care (as documented) at patient's floor/unit and/or counseling patient: Coding Level of Care Code 81638 SUB INP/OBS CARE 3/50MIN Diagnoses Septic shock A41.9; R65.21 RLL pneumonia J18.9 Acute hypoxic respiratory failure J96.01 Palmar-plantar erythrodysesthesia L27.1 Metabolic acidosis with normal anion gap and bicarbonate losses E87.20 Anemia D64.9 Lethargy R53.83 Acute kidney injury N17.9 (HFpEF) heart failure with preserved ejection fraction I50.30 NSVT (nonsustained ventricular tachycardia) I47.29 Hyponatremia E87.1 Acute conjunctivitis of both eyes H10.33 Hypomagnesemia E83.42 Peripheral neuropathy G62.9 Malignant neoplasm of breast metastatic to bone C50.919; C79.51 Hypocalcemia E83.51 GERD (gastroesophageal reflux disease) K21.9 Hyperlipidemia E78.5 Depression F32.9 CAD (coronary artery disease) I25.10 Proximal renal tubular acidosis N25.[address] Z93.3 DM type 2 (diabetes mellitus, type 2) E11.9 History of DVT (deep vein thrombosis) Z86.718 Severe protein-calorie malnutrition E43 Pseudomonas urinary tract infection N39.0; B96.5 Tobacco abuse Z72.0 Coagulopathy D68.9 Goals of care, counseling/discussion Z71.89 Hypokalemia E87.6
[2022-11-19] MEDS: MAGNESIUM SULFATE / D5W 1 GM/100 ML BAG IV SCH ×3 (12:56→17:29)
[2022-11-19] MEDS ORDERED: guaiFENesin SUGAR FREE 100 MG/5 ML UDC PO SCH (13:00)
[2022-11-19] MEDS: SODIUM CHLOR 7% 4 ML NEB NEB SCH ×2 (13:58→20:08)
[2022-11-19] MEDS: guaiFENesin SUGAR FREE 200 MG/10 ML UDC PO SCH ×2 (15:11→21:29)
[2022-11-19] MEDS: oxyCODONE HCL IR 5 MG TAB (IMMEDIATE RELEASE) PO PRN (18:44)
[2022-11-19] MEDS: MoRPHine SULFATE 2 MG/ML CARP IV PRN (21:49)
[2022-11-20] MEDS: LINEZOLID 600 MG/300 ML BAG IV SCH ×2 (01:44→15:03)
[2022-11-20] MEDS: guaiFENesin SUGAR FREE 200 MG/10 ML UDC PO SCH ×4 (01:44→20:33)
[2022-11-20] MEDS: PIPERACILLIN/TAZOBACTAM 4.5 GM in DEXTROSE 5% MINI-B 100 ML IV SCH ×3 (03:08→20:26)
[2022-11-20 07:17] LABS: BUN Creatinine Ratio 11.6 (10-20); Calcium 6.6 mg/dl (8.6-10.3); Creatinine Clr Calc Pharmacy 62.9 ml/min; Est GFR (African American) 71.8 ml/min; Potassium 3.4 mmol/L (3.5-5.1)
[2022-11-20] MEDS: ALBUTEROL HFA 8 GM INHALER INH SCH ×4 (07:24→19:43)
[2022-11-20] MEDS: IPRATROPIUM BROMIDE HFA INHALER INH SCH ×4 (07:25→19:43)
[2022-11-20] MEDS: oxyCODONE HCL IR 5 MG TAB (IMMEDIATE RELEASE) PO PRN ×2 (07:50→16:44)
[2022-11-20] MEDS: APIXABAN 5 MG TABLET PO SCH ×2 (07:51→20:33)
[2022-11-20] MEDS: POTASSIUM CHLORIDE PWD 20 MEQ PACK PO SCH ×3 (07:51→20:34)
[2022-11-20] MEDS: POT PHOSPHATE MONOBASIC W/ SOD TAB PO SCH ×4 (07:51→20:34)
[2022-11-20] MEDS: NICOTINE 14 MG/24 HR PATCH TD SCH (07:51)
[2022-11-20] MEDS: LOPERAMIDE HCL 2 MG CAP PO SCH ×4 (07:52→20:31)
[2022-11-20] MEDS: CALCITRIOL 0.25 MCG CAPSULE PO SCH (07:52)
[2022-11-20] MEDS: SODIUM BICARBONATE 650 MG TAB PO SCH ×2 (07:52→20:34)
[2022-11-20] MEDS: PANTOprazole 40 MG TAB PO SCH (07:52)
[2022-11-20] MEDS: ERGOCALCIFEROL 50,000 UNITS 1250 MCG CAP PO SCH (07:53)
[2022-11-20] MEDS: CIPROFLOXACIN HCL 0.3% OP SOLN 2.5 ML BTL OPB SCH ×4 (07:53→20:35)
[2022-11-20] MEDS: MICONAZOLE NITRATE POWDER 85 GM EXT SCH ×2 (07:54→20:37)
[2022-11-20] MEDS: INSULIN ASPART PER UNIT CHARGE SC SCH ×4 (10:40→20:35)
[2022-11-20] MEDS: SODIUM CHLOR 7% 4 ML NEB NEB SCH ×2 (10:43→19:43)
[2022-11-20] MEDS: MoRPHine SULFATE 2 MG/ML CARP IV PRN (12:09)
--- NOTE | 2022-11-20 12:52 | Palliative Care Consultation ---
Date of Consultation November 20, 2022 Assessment & Plan (1) Pain: In neck with prolonged immobility Oxycodone has been effective, would continue same She is only taking this about once a day (2) Anorexia: With serious illness and dysphagia She reports no hunger or desire to eat Dietary is working with her on maximizing caloric intake We discussed this as a common symptom associated with poor prognosis (3) Palliative care encounter: I met with Yamel and talked to her about how she is coping with her illness. 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 She tells me that the most important thing to her would be to be at home, though she understands that it would be challenging to have sufficient support for her to be at home. She has been considering SNF for rehab after discharge. We talked about her expectations. She understands that while she may have some improvement, it is likely to be short lived and not at her previous baseline functional capacity. We talked about whether there are limits to what she would want for her care. She initially told me that there were not. However, she is DNR, which is consistent with her advance directive and also told me that she was not sure if she would want to come back to the hospital if she had complications at SNF. She expresses concern that she is not going to get better and tells me that she is not ready to . She tells me that she is afraid of dying. When we explored that further, she told me that she worries about her family and also that she worries about being in pain or discomfort as she's dying. I reassured her that we would do whatever we can to relieve any pain or discomfort that she has. We did discuss the idea of going to SNF for rehab and if there were complications, perhaps transitioning to more comfort focused approach to her care at that time. She has been considering this and would like to discuss it further with her sister, Tg. I spoke with Tg on the phone and reviewed my conversation with Yamel. Tg is very supportive and wants to respect whatever Yamel's wishes are but shares the concern that her overall prognosis for improvement is not good. We talked about plan for SNF and possible transition to comfort care if Yamel does not improve as hoped. She supports this and would be interested in discussing hospice care for Yamel in her home at that point. I will meet with both ladies tomorrow to discuss further and complete a POLST form documenting Yamel's wishes. Discussed with case management History of Present Illness Reason for Consultation: goals of care Requesting Physician: Dr. Orellana Attending Physician: Perez Orellana MD History of Present Illness 66 yo lady with breast cancer metastatic to bone, HFpEF, diabetes who is admitted with sepsis and acute hypoxic respiratory failure. She has had prolonged hospital stay complicated by OZIEL, electrolyte disturbance, brief period of NSVT and palmar-plantar erythrodysesthesia. Her oxygen requirement has improved and she is currently on 6L NC. She unfortunately has poor appetite with significant weight loss and albumin of 2.4. She has had some dysphagia but denies nausea. She complains of pain in her neck which is relieved with prn oxycodone. She does have known thoracic and sacral vertebral metastatic lesions as well as metastases to ribs and right humerous. Allergies Allergy/AdvReac Type Severity Reaction Status Date / Time aspirin Allergy Mild hives Verified 11/08/22 20:27 ibuprofen Allergy Mild hives Verified 11/08/22 20:27 tamoxifen Allergy Unknown temporary Verified 11/08/22 20:27 left eye vision loss Home Medications Medication Instructions Recorded Confirmed Type acetaminophen 500 mg tablet 500 mg PO Q6H PRN Pain 04/13/20 11/08/22 History (Tylenol Extra Strength) paroxetine HCl 30 mg tablet (Paxil) 30 mg PO QAM #90 tabs 09/30/21 11/08/22 Rx furosemide 40 mg tablet 40 mg PO QAM #90 tabs 10/11/21 11/08/22 Rx fulvestrant 250 mg/5 mL 500 mg (10 mL) IM ONCE 3 doses #10 03/14/22 11/08/22 Rx intramuscular syringe mL apixaban 5 mg tablet (Eliquis) 5 mg PO BID DVT #180 tabs 05/01/22 11/08/22 Rx Wheelchair (Manual) #1 ea 07/14/22 11/08/22 Rx losartan 25 mg tablet 12.5 mg PO QPM #15 tabs 07/21/22 11/08/22 Rx metformin 1,000 mg tablet 1,000 mg PO BID #180 tabs 07/24/22 11/08/22 Rx carvedilol 3.125 mg tablet 3.125 mg PO BID #180 tabs 08/18/22 11/08/22 Rx gabapentin 300 mg capsule 300 mg PO .COMPLEX #360 caps 09/04/22 11/08/22 Rx magnesium oxide 400 mg (241.3 mg 800 mg PO BID #90 tabs 10/16/22 11/08/22 Rx magnesium) tablet atorvastatin 10 mg tablet 10 mg PO QPM #90 tabs 10/23/22 11/08/22 Rx ergocalciferol (vitamin D2) 1,250 1,250 mcg PO .COMPLEX #8 caps 10/25/22 11/08/22 Rx mcg (50,000 unit) capsule omeprazole 20 mg capsule,delayed 20 mg PO QAM #90 caps 10/30/22 11/08/22 Rx release potassium chloride 20 mEq 20 meq PO QAM #90 tabs 10/30/22 11/08/22 Rx tablet,extended release amiloride 5 mg tablet 5 mg PO QAM 11/08/22 11/08/22 History calcium carbonate 600 mg-vitamin 1 tab PO DAILY 11/08/22 11/08/22 History D3 10 mcg (400 unit) tablet (Calcium 600 + D(3)) magnesium chloride 64 mg 64 mg PO BID 11/08/22 11/08/22 History (magnesium chloride) tablet,delayed release Patient History Medical History (HFpEF) heart failure with preserved ejection fraction Abnormal CT scan recent CT @ [facility] w/ evidence 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 Barkley Chronic systolic CHF (congestive heart failure), NYHA class [address] 2017 (after diverticular perforation complications) Depression Diabetes Difficult intravenous access difficult IV access Left arm Discharge of eye, right Diverticular disease DM type 2 (diabetes mellitus, type 2) NIDDM Encounter for pre-operative examination Hyperlipidemia Left leg DVT started on eliquis. repeat doppler in 07/2021. Lumbar disc herniation with radiculopathy LV dysfunction Metastatic breast cancer hx chemo, radiation + surgery Morbid obesity PAC (premature atrial contraction) h/o PVC (premature ventricular contraction) h/o Surgical History H/O bilateral mastectomy denies limb restriction History of cardiac cath 2017 - [facility] - cardiomyopathy - no stents/angioplasty History of humerus fracture (03/26/20) with open reduction and internal fixation due to pathological fracture (Dr. Gillette) History of hysterectomy History of intestinal surgery History of lumbar laminectomy History of surgery for malignant neoplasm 2017 removal of substernal mass + radiation Family History Mother Breast cancer Sister Breast cancer Father Myocardial infarction Prostate cancer Other Cancer Heart disease Hypertension Denies family history of Ovarian cancer Colorectal cancer Social History Smoking Status: Current every day smoker Tobacco Type: Cigarettes Age Started Using Tobacco: 15; Cigarettes Per Day: 3/4 pack per day; Second Hand Exposure: No; Do You Dip or Chew Tobacco: No; Hx Alcohol Use: No Hx Substance Use: No Preferred Language: Emir[place] Communication Ability: Effective Visual Impairment: No Limitations Testing Engineer Required: No Beliefs That Will Affect Care: Muslim marital status: Single Current Living Situation: Alone Current Living Situation Comment: with caregivers current occupational status: retired How many Children do You have: 0 Feels Safe at Home: Yes Childhood Exposure to Second-Hand Smoke: No Diet: regular caffeine: Yes Dental Care, Regularly: Yes Physical Activity Frequency: Does not Exercise Seatbelt Use: never Sunscreen Use: Yes Assistive Devices: Cane and Walker Review of Systems Review of Systems: ESAS Pain 2/3 Dyspnea 0/3 at rest Nausea 0/3 Drowsiness 0/3 Physical Exam Constitutional: + ill appearing; no acute distress Respiratory: normal respiratory effort; no labored breathing Cardiovascular: Rate/Rhythm: regular rate and regular rhythm Musculoskeletal: Extremities: + muscle atrophy Skin: warm and dry erythema and peeling skin noted on fingers b/l Neurologic: Speech / Cognition: normal cognition Results & Data Vital Signs (Past 12 Hours) Vital Signs Temp Pulse Resp BP Pulse Ox O2 Del Method O2 Flow Rate 11/20/22 11:57 98.8 F 82 96/63 L 95 Nasal Cannula 6 11/20/22 10:45 18 93 Nasal Cannula 6 11/20/22 07:44 98.4 F 84 99/64 L 92 Nasal Cannula 6 11/20/22 07:25 81 17 95 Nasal Cannula 6 11/20/22 03:09 98.6 F 78 17 109/67 95 Nasal Cannula 6 PG Care Time/CCT Total # of Minutes Spent Total Time Spent: 90 Total Time Spent with Patient: Total time spent is greater than 50% in coordination of care (as documented) at patient's floor/unit and/or counseling patient: symptom management, goals of care, patient and family education and support, coordination of care Coding Level of Care Code 08605 INT INP/OBS CARE 3/75MIN Diagnoses Pain R52 Anorexia R63.0 Palliative care encounter Z51.5
--- NOTE | 2022-11-20 16:36 | Hospitalist Progress Note ---
Date of Service November 20, 2022 Assessment & Plan (1) Septic shock: Plan: source - RLL pneumonia required ICU stay x 48 hours with pressor support shock resolved blood cx's negative urine cx from 11/14 negative (did have pseudomonas UTI early in stay - thus resolved) cortisol 20 s/p stress-dose IV hydrocortisone - now off zosyn day #6 MRSA screen + --> had been on Vanco but it was stopped in light of the severity of illness re-instituted MRSA coverage w/ Zyvox - day #4 hold paxil while on zyvox would complete 7 days of zosyn can change zyvox over to oral tomorrow and complete 3 more days of such (2) RLL pneumonia: Plan: either aspiration given her recent dysphagia vs nosocomial / gram negative etiology vs MRSA as above stable, has improved; was on high settings of high-flow NC just a few days ago now down to 6 L NC O2 repeat COVID testing negative cont zosyn/zyvox as above (3) Acute hypoxic respiratory failure: Plan: 2nd to RLL pneumonia along with probable pulmonary edema had required HFNC for 48 hours but FiO2 requirement improved; now on 6 L NC O2 cont to wean as tolerated cont zosyn/zyvox cont saline nebs BID cont combivent 1 puff QID (4) Palmar-plantar erythrodysesthesia: Plan: all fingers affected and nearly all the toes uncertain if the skin findings are acral erythema / palmar-plantar erythrodysesthesia vs small vessel/cutaneous vasculitis vs other if former Xeloda likely to blame - Xeloda has been implicated in the dermatology literature to cause acral erythema Xeloda has been stopped exam findings cont to improve slowly; she has no pain in her fingers or toes mixing study was negative making presence of antiphospholipid ab's or lupus anticoagulant unlikely (5) Metabolic acidosis with normal anion gap and bicarbonate losses: Plan: 2nd to high output losses via colostomy +/- proximal RTA - resolved w/ use of bicarbonate infusion remains on PO bicarbonate tabs bicarb drip is off acidosis resolved (6) Anemia: Plan: no overt GI bleeding no signs/symptoms of retroperitoneal bleeding no evidence of hemolysis H/H stable (7) Lethargy: Plan: suspect multifactorial causes for such including her previous acidosis and septic shock/RLL pneumonia mentation has improved as we have treated her sepsis/pneumonia she retains decision making capacity (8) Acute kidney injury: Plan: resolved cont espana (9) (HFpEF) heart failure with preserved ejection fraction: Plan: echo this admission with normal EF lasix 20mg x 1 11/18 with good response but K, Mag, and Ca all went low following the lasix defer on diuretics today (10) NSVT (nonsustained ventricular tachycardia): Plan: 13 beat run of NSVT several days ago no symptoms fortunately EF is preserved likely due to electrolyte issues keep mag near 2, keep K near 4 or higher, and keep calcium as close to normal as possible holding coreg due to #1 above (11) Hyponatremia: Plan: 2nd to OZIEL & volume depletion resolved (12) Acute conjunctivitis of both eyes: Plan: resolved finish cipro eye drop course (11/21/22 stop date) (13) Hypomagnesemia: Plan: repleted resolved (14) Peripheral neuropathy: Plan: 2nd to prior chemo for breast ca? cont to hold gabapentin due to lethargy/altered MS (15) Malignant neoplasm of breast metastatic to bone: Plan: follows with Dr Montoya at [facility] Xeloda stopped recently due to concerns for hand/foot syndrome // acral erythema most recent PET scan 08/2022 with skeletal mets but no solid-organ mets CT a/p without intra-abdominal metastatic disease has severe failure to thrive Xeloda to NOT be resumed (16) Hypocalcemia: Plan: ongoing s/p COPIOUS IV & PO supplementation even correcting for hypoalbuminemia her total calcium levels are, at best, 7.5-8 (still low) cont calcitriol + ca/vit D supplementation cont PO phos replacement (17) GERD (gastroesophageal reflux disease): Plan: PPI (18) Hyperlipidemia: Plan: hold statin (19) Depression: Plan: hold paxil due to zyvox usage (20) CAD (coronary artery disease): Plan: per records minimal nonobstructive CAD on prior heart cath (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 appears noninfectious - stool biofire negative; a repeat cdiff test also negative had improved with imodium QID but stool output picking up again in the setting of broad-spectrum IV abx therapy consider colestipol or octreotide if ostomy output worsens again (23) DM type 2 (diabetes mellitus, type 2): Plan: resolved last a1c <6% (24) History of DVT (deep vein thrombosis): Plan: Eliquis BID (25) Severe protein-calorie malnutrition: Plan: near 15kg weight loss since June 2022 2nd to metastatic breast ca albumin low in mid 2's very poor appetite - has not had adequate nutrition in 10+ days poor candidate for enteral or parenteral feedings palliative care consultation on 11/[address] Mccollum to refine goals of care (26) Pseudomonas urinary tract infection: Plan: early in admission - s/p course of cipro for such repeat urine cx negative resolved (27) Tobacco abuse: Plan: cont nicoderm patch (28) Coagulopathy: Plan: elevated PT/INR/PTT mixing study performed - both the PT and PTT corrected either vit K def OR factor deficiency gave vitamin K 5mg x 1 repeat INR modestly improved correction during mixing study rules out inhibitor (29) Goals of care, counseling/discussion: Plan: multiple discussions over the weekend with pt and her sister, Tg palliative care consult requested Dr Mccollum did meet with Ms Ojeda today remains DNR/DNI does not want to be re-hospitalized if she becomes sick again POLST form to be completed tomorrow (30) Hypokalemia: Plan: s/p replacement and has improved remains on replacement by mouth no diuretic therapy today repeat BMP am Plan updated Tg - pt's sister - at bedside yesterday care d/w Dr Mccollum from palliative care prognosis very poor dispo - [facility] - pt hoping to attempt rehab if that goes poorly would likely transition to hospice at that time appreciate Dr Mccollum's consultation Admission and Anticipated Discharge Date Admission Date: November 08, 2022 Subjective patient resting comfortably in bed during my visit she had met earlier in the day with Dr Mccollum from palliative care they covered multiple topics but plan is d/c to [facility] with hopes of doing some rehab she does not want to be re-hospitalized if she were to get sick again she mentions she will complete a POLST form with Dr Mccollum tomorrow she reports having some mild pain in her posterior neck over the paraspinal muscles denies pain other locations cough/dyspnea/wheezing improved today "ate a little better" today still very weak & fatigued tele overnight - NSR Review of Systems Review of Systems: gen - no fevers; fatigue/weak cv - no chest pain pulm - all pulmonary symptoms improved GI - liquid stool again via ostomy; no nausea/emesis - espana remains in place musculo - hand & foot findings are improving; no pain in her hands/feet Physical Exam Physical Exam: gen - looks a little better today; eyes open, awake/alert, answers questions appropriately eyes - conjunctivitis resolved b/l mouth - MM slightly dry neck - no JVD heart - RRR, s1 s2, no murmur lungs - improved airation b/l especially R base; mild rales R base; more clear on left today abd - soft NT ND BS+; ostomy left side of abdomen with copious liquid stool once again today skin - all fingertips x 10 and all toes x 10 -- erythematous tips of fingers/toes improved; erythema of palms improved; cap refill ~3 seconds of tips of fingers/toes musculo - generalized edema of right arm unchanged; 1+ edema b/l legs; feet cool to touch psych - flat affect Results & Data Results & Data Vital Signs (Past 12 Hours) Vital Signs Temp Pulse Resp BP Pulse Ox O2 Del Method O2 Flow Rate 11/20/22 15:24 37.0 C 92 H 18 97/65 L 94 Nasal Cannula 11/20/22 15:25 92 H 18 94 Nasal Cannula 6 11/20/22 08:00 Nasal Cannula 5 11/20/22 11:57 37.1 C 82 96/63 L 95 Nasal Cannula 6 11/20/22 10:45 18 93 Nasal Cannula 6 11/20/22 07:44 36.9 C 84 99/64 L 92 Nasal Cannula 6 11/20/22 07:25 81 17 95 Nasal Cannula 6 Laboratory Results Laboratory Results - last 48 hr 11/19/22 11/19/22 11/19/22 07:02 11:28 16:35 WBC RBC Hgb Hct MCV MCH MCHC RDW Std Deviation RDW Coeff of Bradford Plt Count MPV Immature Gran % (Auto) Neut % (Auto) Lymph % (Auto) Letcher % (Auto) Eos % (Auto) Baso % (Auto) Neut # (Auto) Lymph # (Auto) Letcher # (Auto) Eos # (Auto) Baso # (Auto) Immature Gran # (Auto) PT INR Sodium Potassium Chloride Carbon Dioxide Anion Gap BUN Creatinine Est Cr Clr Drug Dosing Est GFR ( Amer) Est GFR (Non-Af Amer) BUN/Creatinine Ratio Glucose POC Glucose 99 105 H Calcium Magnesium 1.4 L 11/19/22 11/20/22 11/20/22 20:46 06:23 07:29 WBC RBC Hgb Hct MCV MCH MCHC RDW Std Deviation RDW Coeff of Bradford Plt Count MPV Immature Gran % (Auto) Neut % (Auto) Lymph % (Auto) Letcher % (Auto) Eos % (Auto) Baso % (Auto) Neut # (Auto) Lymph # (Auto) Letcher # (Auto) Eos # (Auto) Baso # (Auto) Immature Gran # (Auto) PT INR Sodium 137 Potassium 3.4 L Chloride 102 Carbon Dioxide 28 Anion Gap 7 BUN 11 Creatinine 0.95 Est Cr Clr Drug Dosing 62.9 Est GFR ( Amer) 71.8 Est GFR (Non-Af Amer) 62.0 BUN/Creatinine Ratio 11.6 Glucose 103 H POC Glucose 99 105 H Calcium 6.6 L Magnesium 2.0 11/20/22 11/20/22 11:25 16:15 WBC RBC Hgb Hct MCV MCH MCHC RDW Std Deviation RDW Coeff of Bradford Plt Count MPV Immature Gran % (Auto) Neut % (Auto) Lymph % (Auto) Letcher % (Auto) Eos % (Auto) Baso % (Auto) Neut # (Auto) Lymph # (Auto) Letcher # (Auto) Eos # (Auto) Baso # (Auto) Immature Gran # (Auto) PT INR Sodium Potassium Chloride Carbon Dioxide Anion Gap BUN Creatinine Est Cr Clr Drug Dosing Est GFR ( Amer) Est GFR (Non-Af Amer) BUN/Creatinine Ratio Glucose POC Glucose 101 H 129 H Calcium Magnesium PG Care Time/CCT Total # of Minutes Spent Total Time Spent with Patient: Total time spent is greater than 50% in coordination of care (as documented) at patient's floor/unit and/or counseling patient: Coding Level of Care Code 22072 SUB INP/OBS CARE 2/35MIN Diagnoses Septic shock A41.9; R65.21 RLL pneumonia J18.9 Acute hypoxic respiratory failure J96.01 Palmar-plantar erythrodysesthesia L27.1 Metabolic acidosis with normal anion gap and bicarbonate losses E87.20 Anemia D64.9 Lethargy R53.83 Acute kidney injury N17.9 (HFpEF) heart failure with preserved ejection fraction I50.30 NSVT (nonsustained ventricular tachycardia) I47.29 Hyponatremia E87.1 Acute conjunctivitis of both eyes H10.33 Hypomagnesemia E83.42 Peripheral neuropathy G62.9 Malignant neoplasm of breast metastatic to bone C50.919; C79.51 Hypocalcemia E83.51 GERD (gastroesophageal reflux disease) K21.9 Hyperlipidemia E78.5 Depression F32.9 CAD (coronary artery disease) I25.10 Proximal renal tubular acidosis N25.[address] Z93.3 DM type 2 (diabetes mellitus, type 2) E11.9 History of DVT (deep vein thrombosis) Z86.718 Severe protein-calorie malnutrition E43 Pseudomonas urinary tract infection N39.0; B96.5 Tobacco abuse Z72.0 Coagulopathy D68.9 Goals of care, counseling/discussion Z71.89 Hypokalemia E87.6
[2022-11-20] MEDS ORDERED: LIDOCAINE 5% 1 PATCH TD STA (19:06)
[2022-11-20] MEDS: SODIUM BICARBONATE 8.4% 75 MEQ in SODIUM CHLORIDE 0.45 % 1,000 ML IV SCH (21:00)
[2022-11-20] MEDS: NOREPINEPHRINE/D5W 4 MG/250 ML PLCT IV SCH (21:02)
[2022-11-21] MEDS: guaiFENesin SUGAR FREE 200 MG/10 ML UDC PO SCH ×4 (02:13→20:09)
[2022-11-21] MEDS: LINEZOLID 600 MG/300 ML BAG IV SCH ×2 (02:13→14:55)
[2022-11-21] MEDS: PIPERACILLIN/TAZOBACTAM 4.5 GM in DEXTROSE 5% MINI-B 100 ML IV SCH ×2 (03:42→11:58)
[2022-11-21] MEDS: SODIUM CHLOR 7% 4 ML NEB NEB SCH ×2 (07:28→20:01)
[2022-11-21] MEDS: ALBUTEROL HFA 8 GM INHALER INH SCH ×4 (07:28→20:00)
[2022-11-21] MEDS: IPRATROPIUM BROMIDE HFA INHALER INH SCH ×4 (07:29→20:01)
[2022-11-21 08:10] LABS: Basophils # (auto) 0.06 K/uL (0.00-0.20); Basophils % (auto) 0.9 %; Eosinophils # (auto) 0.36 K/uL (0.00-0.50); Eosinophils % (auto) 5.5 %; Hematocrit (blood only) 32.6 % (37.0-47.0); Hemoglobin 9.9 g/dl (12.0-16.0); Immature Granulocytes # (auto) 0.09 K/uL (0.01-0.20); Immature Granulocytes % (auto) 1.4 %; Lymphocytes % (auto) 9.2 %; Mean Corpuscular Hemoglobin 32.8 pg (25.0-34.0); Mean Corpuscular Hgb Conc 30.4 g/dL (32.0-36.0); Mean Corpuscular Volume 107.9 fL (80.0-100.0); Mean Platelet Volume 9.4 fL (9.4-12.4); Monocytes % (auto) 7.7 %; Neutrophils % (auto) 75.3 %; Platelet Count 241 K/uL (130-400); RDW Coefficient of Variation 19.2 % (11.5-14.5); RDW Standard Deviation 74.8 fL (36.4-46.3); Red Blood Count 3.02 M/uL (4.20-5.40); White Blood Count 6.51 K/ul (4.8-10.8)
[2022-11-21 08:22] LABS: Calcium 6.4 mg/dl (8.6-10.3); Potassium 3.8 mmol/L (3.5-5.1)
[2022-11-21 08:28] LABS: BUN Creatinine Ratio 11.1 (10-20); Creatinine Clr Calc Pharmacy 65.2 ml/min; Est GFR (African American) 76.7 ml/min; Est GFR (Non-African American) 66.2 ml/min
[2022-11-21 08:37] LABS: INR 1.7 (0.9-1.1); Prothrombin Time 17.7 Seconds (9.0-12.0)
[2022-11-21] MEDS: POTASSIUM CHLORIDE PWD 20 MEQ PACK PO SCH ×3 (08:46→20:12)
[2022-11-21] MEDS: NICOTINE 14 MG/24 HR PATCH TD SCH (08:46)
[2022-11-21] MEDS: POT PHOSPHATE MONOBASIC W/ SOD TAB PO SCH ×4 (08:47→20:12)
[2022-11-21] MEDS: LOPERAMIDE HCL 2 MG CAP PO SCH ×4 (08:47→20:12)
[2022-11-21] MEDS: CIPROFLOXACIN HCL 0.3% OP SOLN 2.5 ML BTL OPB SCH ×4 (08:47→20:10)
[2022-11-21] MEDS: CALCITRIOL 0.25 MCG CAPSULE PO SCH (08:47)
[2022-11-21] MEDS: SODIUM BICARBONATE 650 MG TAB PO SCH ×2 (08:47→20:12)
[2022-11-21] MEDS: APIXABAN 5 MG TABLET PO SCH ×2 (08:47→20:09)
[2022-11-21] MEDS: PANTOprazole 40 MG TAB PO SCH (08:47)
[2022-11-21] MEDS: MICONAZOLE NITRATE POWDER 85 GM EXT SCH ×2 (08:48→20:12)
[2022-11-21] MEDS: INSULIN ASPART PER UNIT CHARGE SC SCH ×4 (08:53→20:11)
--- NOTE | 2022-11-21 10:24 | Palliative Care Progress Note ---
Date of Service November 21, 2022 Assessment & Plan (1) Pain: Plan: With prolonged immobility Controlled with repositioning, lidocaine patch and prn opioids No constipation (2) Palliative care encounter: Plan: I met with Yamel and her sister, Tg, at bedside. We reviewed her advance directive that was updated in July of this year. She tells me that this is still consistent with her wishes for no aggressive interventions. She has had an opportunity to talk with her sister and a health nurse. She tells me that she feels ok about where things are at and is comfortable with the decision to go to SNF with rehab. If she does not do well at rehab, goal would be home with hospice. She does not want to return to the hospital unless her comfort needs could not be met at home or SNF. We reviewed POLST form and completed per her wishes for DNR/DNI, comfort measures, determine antibiotics at time, trial of artificial hydration but no artificial nutrition. Discussed with RN, watch case polisher and Dr. Araiza. Admission and Anticipated Discharge Date Admission Date: November 08, 2022 Subjective Sleepy but easily arousable. Denies pain currently. She had oxycodone 10mg and morphine 2mg in last 24 hours. No other complaints. Appetite remains poor Review of Systems Review of Systems: ESAS Pain 0/3 Dyspnea 0/3 at rest Nausea 0/3 Drowsiness 1/3 Physical Exam Constitutional: + ill appearing; no acute distress Respiratory: normal respiratory effort; no labored breathing Cardiovascular: Rate/Rhythm: regular rate and regular rhythm edema Neurologic: Speech / Cognition: normal cognition Results & Data Vital Signs (Past 12 Hours) Vital Signs Temp Pulse Pulse Resp BP Pulse Ox O2 Del Method 11/21/22 07:37 98.4 F 86 20 99/66 L 95 High Flow Nasal Cannula 11/21/22 07:29 90 16 93 Nasal Cannula 11/21/22 03:00 99.1 F 88 19 97/66 L 95 Nasal Cannula 11/20/22 23:27 87 11/20/22 23:00 99.3 F 86 18 93/61 L 93 Nasal Cannula O2 Flow Rate 11/21/22 07:37 6 11/21/22 07:29 6 11/21/22 03:00 11/20/22 23:27 11/20/22 23:00 PG Care Time/CCT Total # of Minutes Spent Total Time Spent: 50 Total Time Spent with Patient: Total time spent is greater than 50% in coordination of care (as documented) at patient's floor/unit and/or counseling patient: goals of care, symptom management, POLST, patient and family education and support, coordination of care Coding Level of Care Code 02026 SUB INP/OBS CARE 3/50MIN Diagnoses Pain R52 Palliative care encounter Z51.5
[2022-11-21] MEDS: MoRPHine SULFATE 2 MG/ML CARP IV PRN ×2 (11:58→18:54)
--- NOTE | 2022-11-21 18:08 | Hospitalist Progress Note ---
Date of Service November 21, 2022 Assessment & Plan (1) Septic shock: Plan: source - RLL pneumonia required ICU stay x 48 hours with pressor support shock resolved blood cx's negative urine cx from 11/14 negative (did have pseudomonas UTI early in stay - thus resolved) cortisol 20 s/p stress-dose IV hydrocortisone - now off zosyn day #7 MRSA screen + --> had been on Vanco but it was stopped in light of the severity of illness re-instituted MRSA coverage w/ Zyvox - day #5 hold paxil while on zyvox completed 7 days of zosyn can change zyvox over to oral tomorrow and complete 2 more days of such (2) RLL pneumonia: Plan: either aspiration given her recent dysphagia vs nosocomial / gram negative etiology vs MRSA as above stable, has improved; was on high settings of high-flow NC just a few days ago now down to 6 L NC O2 repeat COVID testing negative cont zosyn/zyvox as above (3) Acute hypoxic respiratory failure: Plan: 2nd to RLL pneumonia along with probable pulmonary edema had required HFNC for 48 hours but FiO2 requirement improved; now on 6 L NC O2 cont to wean as tolerated cont Zyvox. Completed Zosyn course cont saline nebs BID cont combivent 1 puff QID (4) Palmar-plantar erythrodysesthesia: Plan: all fingers affected and nearly all the toes uncertain if the skin findings are acral erythema / palmar-plantar erythrodysesthesia vs small vessel/cutaneous vasculitis vs other if former Xeloda likely to blame - Xeloda has been implicated in the dermatology literature to cause acral erythema Xeloda has been stopped exam findings cont to improve slowly; she has no pain in her fingers or toes mixing study was negative making presence of antiphospholipid ab's or lupus anticoagulant unlikely (5) Metabolic acidosis with normal anion gap and bicarbonate losses: Plan: 2nd to high output losses via colostomy +/- proximal RTA - resolved w/ use of bicarbonate infusion remains on PO bicarbonate tabs bicarb drip is off acidosis resolved (6) Anemia: Plan: no overt GI bleeding no signs/symptoms of retroperitoneal bleeding no evidence of hemolysis H/H stable (7) Lethargy: Plan: suspect multifactorial causes for such including her previous acidosis and septic shock/RLL pneumonia mentation has improved as we have treated her sepsis/pneumonia she retains decision making capacity (8) Acute kidney injury: Plan: resolved cont espana (9) (HFpEF) heart failure with preserved ejection fraction: Plan: echo this admission with normal EF lasix 20mg x 1 11/18 with good response but K, Mag, and Ca all went low following the lasix defer on diuretics today (10) NSVT (nonsustained ventricular tachycardia): Plan: 13 beat run of NSVT several days ago no symptoms fortunately EF is preserved likely due to electrolyte issues keep mag near 2, keep K near 4 or higher, and keep calcium as close to normal as possible holding coreg due to #1 above (11) Hyponatremia: Plan: 2nd to OZIEL & volume depletion resolved (12) Acute conjunctivitis of both eyes: Plan: resolved finish cipro eye drop course (11/21/22 stop date) (13) Hypomagnesemia: Plan: repleted resolved (14) Peripheral neuropathy: Plan: 2nd to prior chemo for breast ca? cont to hold gabapentin due to lethargy/altered MS (15) Malignant neoplasm of breast metastatic to bone: Plan: follows with Dr Montoya at [facility] Xeloda stopped recently due to concerns for hand/foot syndrome // acral erythema most recent PET scan 08/2022 with skeletal mets but no solid-organ mets CT a/p without intra-abdominal metastatic disease has severe failure to thrive Xeloda to NOT be resumed (16) Hypocalcemia: Plan: ongoing s/p COPIOUS IV & PO supplementation even correcting for hypoalbuminemia her total calcium levels are, at best, 7.5-8 (still low) cont calcitriol + ca/vit D supplementation cont PO phos replacement (17) GERD (gastroesophageal reflux disease): Plan: PPI (18) Hyperlipidemia: Plan: hold statin (19) Depression: Plan: hold paxil due to zyvox usage (20) CAD (coronary artery disease): Plan: per records minimal nonobstructive CAD on prior heart cath (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 appears noninfectious - stool biofire negative; a repeat cdiff test also negative had improved with imodium QID but stool output picking up again in the setting of broad-spectrum IV abx therapy consider colestipol or octreotide if ostomy output worsens again (23) DM type 2 (diabetes mellitus, type 2): Plan: resolved last a1c <6% (24) History of DVT (deep vein thrombosis): Plan: Eliquis BID (25) Severe protein-calorie malnutrition: Plan: near 15kg weight loss since June 2022 2nd to metastatic breast ca albumin low in mid 2's very poor appetite - has not had adequate nutrition in 10+ days poor candidate for enteral or parenteral feedings palliative care consultation: Decided on comfort measures moving forward. No rehospitalization. If patient declines at rehab, she would like to go home with hospice (26) Pseudomonas urinary tract infection: Plan: early in admission - s/p course of cipro for such repeat urine cx negative resolved (27) Tobacco abuse: Plan: cont nicoderm patch (28) Coagulopathy: Plan: elevated PT/INR/PTT mixing study performed - both the PT and PTT corrected either vit K def OR factor deficiency gave vitamin K 5mg x 1 repeat INR modestly improved correction during mixing study rules out inhibitor (29) Goals of care, counseling/discussion: Plan: multiple discussions over the weekend with pt and her sister, Tg palliative care consult requested Dr Mccollum did meet with Ms Ojeda remains DNR/DNI does not want to be re-hospitalized if she becomes sick again POLST form completed today She would like to go to rehab with comfort measures (30) Hypokalemia: Plan: s/p replacement and has improved remains on replacement by mouth no diuretic therapy today repeat BMP am Plan updated Tg - pt's sister - at bedside yesterday care d/w Dr Mccollum from palliative care prognosis very poor dispo - [facility] - pt hoping to attempt rehab if that goes poorly would likely transition to hospice at that time appreciate Dr Mccollum's consultation Admission and Anticipated Discharge Date Admission Date: November 08, 2022 Subjective Patient feels well. Denies chest pain or shortness of breath. She is comfortable with her decision of comfort measures only. Review of Systems Review of Systems: All systems reviewed & are unremarkable except as noted in Subjective Physical Exam Physical Exam: General: Awake, conversant. Pleasant. Frail looking Heart: S1, S2/regular rate and rhythm, no murmur rubs or gallops Lungs: Clear to auscultation bilaterally. Normal effort Abdomen: Soft/nontender/nondistended. No hepatosplenomegaly. Colostomy bag in place Extremities: No clubbing/cyanosis. No edema Behavior: Appropriate, cooperative Results & Data Results & Data Vital Signs (Past 12 Hours) Vital Signs Temp Pulse Pulse Resp BP Pulse Ox O2 Del Method 11/21/22 15:22 37.0 C 92 H 20 95/61 L 92 High Flow Nasal Cannula 11/21/22 15:04 90 20 96 Nasal Cannula 11/21/22 08:00 85 11/21/22 08:00 Nasal Cannula 11/21/22 11:53 37.3 C 83 18 93/62 L 97 High Flow Nasal Cannula 11/21/22 11:15 92 H 18 95 Nasal Cannula 11/21/22 07:37 36.9 C 86 20 99/66 L 95 High Flow Nasal Cannula 11/21/22 07:29 90 16 93 Nasal Cannula O2 Flow Rate 11/21/22 15:22 6 11/21/22 15:04 6 11/21/22 08:00 11/21/22 08:00 5 11/21/22 11:53 6 11/21/22 11:15 6 11/21/22 07:37 6 11/21/22 07:29 6 Laboratory Results Abnormal lab results 11/20/22 11/21/22 11/21/22 Range/Units 20:34 07:54 07:54 RBC 3.02 L (4.20-5.40) M/uL Hgb 9.9 L (12.0-16.0) g/dl Hct 32.6 L (37.0-47.0) % MCV 107.9 H D (80.0-100.0) fL MCHC 30.4 L (32.0-36.0) g/dL RDW Std Deviation 74.8 H (36.4-46.3) fL RDW Coeff of Bradford 19.2 H (11.5-14.5) % Lymph # (Auto) 0.60 L (1.20-3.40) K/uL PT 17.7 H (9.0-12.0) Seconds INR 1.7 H (0.9-1.1) Glucose (70-99(Fasting)) mg/dl POC Glucose 100 H (70-99) mg/dl Calcium (8.6-10.3) mg/dl 11/21/22 11/21/22 Range/Units 07:54 16:04 RBC (4.20-5.40) M/uL Hgb (12.0-16.0) g/dl Hct (37.0-47.0) % MCV (80.0-100.0) fL MCHC (32.0-36.0) g/dL RDW Std Deviation (36.4-46.3) fL RDW Coeff of Bradford (11.5-14.5) % Lymph # (Auto) (1.20-3.40) K/uL PT (9.0-12.0) Seconds INR (0.9-1.1) Glucose 106 H (70-99(Fasting)) mg/dl POC Glucose 101 H (70-99) mg/dl Calcium 6.4 L (8.6-10.3) mg/dl PG Care Time/CCT Total # of Minutes Spent Total Time Spent with Patient: Total time spent is greater than 50% in coordination of care (as documented) at patient's floor/unit and/or counseling patient: Coding Level of Care Code 50788 SUB INP/OBS CARE 2/35MIN Diagnoses Septic shock A41.9; R65.21 RLL pneumonia J18.9 Acute hypoxic respiratory failure J96.01 Palmar-plantar erythrodysesthesia L27.1 Metabolic acidosis with normal anion gap and bicarbonate losses E87.20 Anemia D64.9 Lethargy R53.83 Acute kidney injury N17.9 (HFpEF) heart failure with preserved ejection fraction I50.30 NSVT (nonsustained ventricular tachycardia) I47.29 Hyponatremia E87.1 Acute conjunctivitis of both eyes H10.33 Hypomagnesemia E83.42 Peripheral neuropathy G62.9 Malignant neoplasm of breast metastatic to bone C50.919; C79.51 Hypocalcemia E83.51 GERD (gastroesophageal reflux disease) K21.9 Hyperlipidemia E78.5 Depression F32.9 CAD (coronary artery disease) I25.10 Proximal renal tubular acidosis N25.[address] Z93.3 DM type 2 (diabetes mellitus, type 2) E11.9 History of DVT (deep vein thrombosis) Z86.718 Severe protein-calorie malnutrition E43 Pseudomonas urinary tract infection N39.0; B96.5 Tobacco abuse Z72.0 Coagulopathy D68.9 Goals of care, counseling/discussion Z71.89 Hypokalemia E87.6
[2022-11-21] MEDS: LIDOCAINE 5% 1 PATCH TD SCH (20:11)
[2022-11-21] MEDS ORDERED: LIDOCAINE 5% 1 PATCH TD SCH (21:00)
[2022-11-22] MEDS: LINEZOLID 600 MG/300 ML BAG IV SCH ×2 (01:32→13:24)
[2022-11-22] MEDS: guaiFENesin SUGAR FREE 200 MG/10 ML UDC PO SCH ×4 (01:33→20:22)
[2022-11-22] MEDS: SODIUM CHLOR 7% 4 ML NEB NEB SCH ×2 (07:19→19:36)
[2022-11-22] MEDS: ALBUTEROL HFA 8 GM INHALER INH SCH ×4 (07:19→19:36)
[2022-11-22] MEDS: IPRATROPIUM BROMIDE HFA INHALER INH SCH ×4 (07:19→19:36)
[2022-11-22] MEDS: INSULIN ASPART PER UNIT CHARGE SC SCH ×4 (08:44→20:24)
[2022-11-22] MEDS: SODIUM BICARBONATE 650 MG TAB PO SCH ×2 (08:54→20:25)
[2022-11-22] MEDS: POT PHOSPHATE MONOBASIC W/ SOD TAB PO SCH ×4 (08:54→20:25)
[2022-11-22] MEDS: POTASSIUM CHLORIDE PWD 20 MEQ PACK PO SCH ×3 (08:55→20:24)
[2022-11-22] MEDS: NICOTINE 14 MG/24 HR PATCH TD SCH (08:55)
[2022-11-22] MEDS: LOPERAMIDE HCL 2 MG CAP PO SCH ×4 (08:56→20:22)
[2022-11-22] MEDS: CALCITRIOL 0.25 MCG CAPSULE PO SCH (08:56)
[2022-11-22] MEDS: APIXABAN 5 MG TABLET PO SCH ×2 (08:56→20:24)
[2022-11-22] MEDS: PANTOprazole 40 MG TAB PO SCH (08:57)
[2022-11-22] MEDS: MICONAZOLE NITRATE POWDER 85 GM EXT SCH ×2 (08:57→20:23)
[2022-11-22] MEDS: CIPROFLOXACIN HCL 0.3% OP SOLN 2.5 ML BTL OPB SCH ×4 (08:57→20:22)
--- NOTE | 2022-11-22 16:51 | Hospitalist Progress Note ---
Date of Service November 22, 2022 Assessment & Plan (1) Septic shock: Plan: source - RLL pneumonia required ICU stay x 48 hours with pressor support shock resolved blood cx's negative urine cx from 11/14 negative (did have pseudomonas UTI early in stay - thus resolved) cortisol 20 s/p stress-dose IV hydrocortisone - now off MRSA screen + --> had been on Vanco but it was stopped in light of the severity of illness re-instituted MRSA coverage w/ Zyvox - day #5 hold paxil while on zyvox completed 7 days of zosyn switch Zyvox to p.o. for 2 more days (2) RLL pneumonia: Plan: either aspiration given her recent dysphagia vs nosocomial / gram negative etiology vs MRSA as above stable, has improved; was on high settings of high-flow NC just a few days ago now down to 6 L NC O2 repeat COVID testing negative cont zyvox as above (3) Acute hypoxic respiratory failure: Plan: 2nd to RLL pneumonia along with probable pulmonary edema had required HFNC for 48 hours but FiO2 requirement improved; now on 6 L NC O2 cont to wean as tolerated cont Zyvox. Completed Zosyn course cont saline nebs BID cont combivent 1 puff QID (4) Palmar-plantar erythrodysesthesia: Plan: all fingers affected and nearly all the toes uncertain if the skin findings are acral erythema / palmar-plantar erythrodysesthesia vs small vessel/cutaneous vasculitis vs other if former Xeloda likely to blame - Xeloda has been implicated in the dermatology literature to cause acral erythema Xeloda has been stopped exam findings cont to improve slowly; she has no pain in her fingers or toes mixing study was negative making presence of antiphospholipid ab's or lupus anticoagulant unlikely (5) Metabolic acidosis with normal anion gap and bicarbonate losses: Plan: 2nd to high output losses via colostomy +/- proximal RTA - resolved w/ use of bicarbonate infusion remains on PO bicarbonate tabs bicarb drip is off acidosis resolved (6) Anemia: Plan: no overt GI bleeding no signs/symptoms of retroperitoneal bleeding no evidence of hemolysis H/H stable (7) Lethargy: Plan: suspect multifactorial causes for such including her previous acidosis and septic shock/RLL pneumonia mentation has improved as we have treated her sepsis/pneumonia she retains decision making capacity (8) Acute kidney injury: Plan: resolved cont espana (9) (HFpEF) heart failure with preserved ejection fraction: Plan: echo this admission with normal EF lasix 20mg x 1 11/18 with good response but K, Mag, and Ca all went low following the lasix defer on diuretics today (10) NSVT (nonsustained ventricular tachycardia): Plan: 13 beat run of NSVT several days ago no symptoms fortunately EF is preserved likely due to electrolyte issues keep mag near 2, keep K near 4 or higher, and keep calcium as close to normal as possible holding coreg due to #1 above (11) Hyponatremia: Plan: 2nd to OZIEL & volume depletion resolved (12) Acute conjunctivitis of both eyes: Plan: resolved finish cipro eye drop course (11/21/22 stop date) (13) Hypomagnesemia: Plan: repleted resolved (14) Peripheral neuropathy: Plan: 2nd to prior chemo for breast ca? cont to hold gabapentin due to lethargy/altered MS (15) Malignant neoplasm of breast metastatic to bone: Plan: follows with Dr Montoya at [facility] Xeloda stopped recently due to concerns for hand/foot syndrome // acral erythema most recent PET scan 08/2022 with skeletal mets but no solid-organ mets CT a/p without intra-abdominal metastatic disease has severe failure to thrive Xeloda to NOT be resumed (16) Hypocalcemia: Plan: ongoing s/p COPIOUS IV & PO supplementation even correcting for hypoalbuminemia her total calcium levels are, at best, 7.5-8 (still low) cont calcitriol + ca/vit D supplementation cont PO phos replacement (17) GERD (gastroesophageal reflux disease): Plan: PPI (18) Hyperlipidemia: Plan: hold statin (19) Depression: Plan: hold paxil due to zyvox usage (20) CAD (coronary artery disease): Plan: per records minimal nonobstructive CAD on prior heart cath (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 appears noninfectious - stool biofire negative; a repeat cdiff test also negative had improved with imodium QID but stool output picking up again in the setting of broad-spectrum IV abx therapy consider colestipol or octreotide if ostomy output worsens again (23) DM type 2 (diabetes mellitus, type 2): Plan: resolved last a1c <6% (24) History of DVT (deep vein thrombosis): Plan: Eliquis BID (25) Severe protein-calorie malnutrition: Plan: near 15kg weight loss since June 2022 2nd to metastatic breast ca albumin low in mid 2's very poor appetite - has not had adequate nutrition in 10+ days poor candidate for enteral or parenteral feedings palliative care consultation: Decided on comfort measures moving forward. No rehospitalization. If patient declines at rehab, she would like to go home with hospice (26) Pseudomonas urinary tract infection: Plan: early in admission - s/p course of cipro for such repeat urine cx negative resolved (27) Tobacco abuse: Plan: cont nicoderm patch (28) Coagulopathy: Plan: elevated PT/INR/PTT mixing study performed - both the PT and PTT corrected either vit K def OR factor deficiency gave vitamin K 5mg x 1 repeat INR modestly improved correction during mixing study rules out inhibitor (29) Goals of care, counseling/discussion: Plan: multiple discussions over the weekend with pt and her sisterTg palliative care consult requested Dr Mccollum did meet with Ms Ojeda remains DNR/DNI does not want to be re-hospitalized if she becomes sick again POLST form completed today She would like to go to rehab with comfort measures (30) Hypokalemia: Plan: s/p replacement and has improved remains on replacement by mouth no diuretic therapy today repeat BMP am Plan prognosis very poor dispo - [facility] - pt hoping to attempt rehab if that goes poorly would likely transition to hospice at that time appreciate Dr Mccollum's consultation Admission and Anticipated Discharge Date Admission Date: November 08, 2022 Subjective patient appears comfortable Review of Systems Review of Systems: All systems reviewed & are unremarkable except as noted in Subjective Physical Exam Physical Exam: General: Awake, conversant. Pleasant. Frail looking Heart: S1, S2/regular rate and rhythm, no murmur rubs or gallops Lungs: Clear to auscultation bilaterally. Normal effort Abdomen: Soft/nontender/nondistended. No hepatosplenomegaly. Colostomy bag in place Extremities: No clubbing/cyanosis. 1-2+ pitting bilateral edema Behavior: Appropriate, cooperative Results & Data Results & Data Vital Signs (Past 12 Hours) Vital Signs Temp Pulse Pulse Resp BP Pulse Ox O2 Del Method 11/22/22 15:17 36.3 C L 95 H 16 102/65 90 Nasal Cannula 11/22/22 14:55 68 18 93 Nasal Cannula 11/22/22 11:25 37.5 C 84 18 102/63 93 Nasal Cannula 11/22/22 10:58 73 20 99 Nasal Cannula 11/22/22 08:00 83 11/22/22 08:00 Nasal Cannula 11/22/22 07:43 36.8 C 84 20 106/69 90 Nasal Cannula 11/22/22 07:19 87 18 91 Nasal Cannula O2 Flow Rate 11/22/22 15:17 4 11/22/22 14:55 4 11/22/22 11:25 4 11/22/22 10:58 4 11/22/22 08:00 11/22/22 08:00 4 11/22/22 07:43 4 11/22/22 07:19 4 PG Care Time/CCT Total # of Minutes Spent Total Time Spent with Patient: Total time spent is greater than 50% in coordination of care (as documented) at patient's floor/unit and/or counseling patient: Coding Level of Care Code 98479 SUB INP/OBS CARE 2/35MIN Diagnoses Septic shock A41.9; R65.21 RLL pneumonia J18.9 Acute hypoxic respiratory failure J96.01 Palmar-plantar erythrodysesthesia L27.1 Metabolic acidosis with normal anion gap and bicarbonate losses E87.20 Anemia D64.9 Lethargy R53.83 Acute kidney injury N17.9 (HFpEF) heart failure with preserved ejection fraction I50.30 NSVT (nonsustained ventricular tachycardia) I47.29 Hyponatremia E87.1 Acute conjunctivitis of both eyes H10.33 Hypomagnesemia E83.42 Peripheral neuropathy G62.9 Malignant neoplasm of breast metastatic to bone C50.919; C79.51 Hypocalcemia E83.51 GERD (gastroesophageal reflux disease) K21.9 Hyperlipidemia E78.5 Depression F32.9 CAD (coronary artery disease) I25.10 Proximal renal tubular acidosis N25.[address] Z93.3 DM type 2 (diabetes mellitus, type 2) E11.9 History of DVT (deep vein thrombosis) Z86.718 Severe protein-calorie malnutrition E43 Pseudomonas urinary tract infection N39.0; B96.5 Tobacco abuse Z72.0 Coagulopathy D68.9 Goals of care, counseling/discussion Z71.89 Hypokalemia E87.6
[2022-11-22] MEDS: LIDOCAINE 5% 1 PATCH TD SCH (20:23)
[2022-11-22] MEDS ORDERED: LINEZOLID 600 MG TAB PO SCH (21:00)
[2022-11-23] MEDS: guaiFENesin SUGAR FREE 200 MG/10 ML UDC PO SCH ×4 (01:39→20:23)
[2022-11-23] MEDS: SODIUM CHLOR 7% 4 ML NEB NEB SCH ×2 (07:13→19:50)
[2022-11-23] MEDS: ALBUTEROL HFA 8 GM INHALER INH SCH ×4 (07:13→19:50)
[2022-11-23] MEDS: IPRATROPIUM BROMIDE HFA INHALER INH SCH ×4 (07:13→19:50)
[2022-11-23] MEDS: INSULIN ASPART PER UNIT CHARGE SC SCH ×4 (07:35→20:23)
[2022-11-23] MEDS: SODIUM BICARBONATE 650 MG TAB PO SCH ×2 (08:16→20:24)
[2022-11-23] MEDS: POTASSIUM CHLORIDE PWD 20 MEQ PACK PO SCH ×3 (08:16→20:24)
[2022-11-23] MEDS: APIXABAN 5 MG TABLET PO SCH ×2 (08:16→20:47)
[2022-11-23] MEDS: CALCITRIOL 0.25 MCG CAPSULE PO SCH (08:17)
[2022-11-23] MEDS: LOPERAMIDE HCL 2 MG CAP PO SCH ×4 (08:17→20:23)
[2022-11-23] MEDS: POT PHOSPHATE MONOBASIC W/ SOD TAB PO SCH ×4 (08:18→20:23)
[2022-11-23] MEDS: ERGOCALCIFEROL 50,000 UNITS 1250 MCG CAP PO SCH (08:18)
[2022-11-23] MEDS: NICOTINE 14 MG/24 HR PATCH TD SCH (08:18)
[2022-11-23] MEDS: CIPROFLOXACIN HCL 0.3% OP SOLN 2.5 ML BTL OPB SCH ×4 (08:19→20:24)
[2022-11-23] MEDS: MICONAZOLE NITRATE POWDER 85 GM EXT SCH ×2 (08:19→20:25)
[2022-11-23] MEDS: PANTOprazole 40 MG TAB PO SCH (08:20)
--- NOTE | 2022-11-23 13:27 | Hospitalist Progress Note ---
Date of Service November 23, 2022 Assessment & Plan (1) Septic shock: Plan: source - RLL pneumonia required ICU stay x 48 hours with pressor support shock resolved blood cx's negative urine cx from 11/14 negative (did have pseudomonas UTI early in stay - thus resolved) cortisol 20 s/p stress-dose IV hydrocortisone - now off MRSA screen + --> had been on Vanco but it was stopped in light of the severity of illness re-instituted MRSA coverage w/ Zyvox hold paxil while on zyvox completed 7 days of zosyn switch Zyvox to p.o. for 1 more days (2) RLL pneumonia: Plan: either aspiration given her recent dysphagia vs nosocomial / gram negative etiology vs MRSA as above stable, has improved; was on high settings of high-flow NC just a few days ago now down to 6 L NC O2 repeat COVID testing negative cont zyvox as above (3) Acute hypoxic respiratory failure: Plan: 2nd to RLL pneumonia along with probable pulmonary edema had required HFNC for 48 hours but FiO2 requirement improved; now on 6 L NC O2 cont to wean as tolerated cont Zyvox. Completed Zosyn course cont saline nebs BID cont combivent 1 puff QID (4) Palmar-plantar erythrodysesthesia: Plan: all fingers affected and nearly all the toes uncertain if the skin findings are acral erythema / palmar-plantar erythrodysesthesia vs small vessel/cutaneous vasculitis vs other if former Xeloda likely to blame - Xeloda has been implicated in the dermatology literature to cause acral erythema Xeloda has been stopped exam findings cont to improve slowly; she has no pain in her fingers or toes mixing study was negative making presence of antiphospholipid ab's or lupus anticoagulant unlikely (5) Metabolic acidosis with normal anion gap and bicarbonate losses: Plan: 2nd to high output losses via colostomy +/- proximal RTA - resolved w/ use of bicarbonate infusion remains on PO bicarbonate tabs bicarb drip is off acidosis resolved (6) Anemia: Plan: no overt GI bleeding no signs/symptoms of retroperitoneal bleeding no evidence of hemolysis H/H stable (7) Lethargy: Plan: suspect multifactorial causes for such including her previous acidosis and septic shock/RLL pneumonia mentation has improved as we have treated her sepsis/pneumonia she retains decision making capacity (8) Acute kidney injury: Plan: resolved cont espana (9) (HFpEF) heart failure with preserved ejection fraction: Plan: echo this admission with normal EF lasix 20mg x 1 11/18 with good response but K, Mag, and Ca all went low following the lasix defer on diuretics today (10) NSVT (nonsustained ventricular tachycardia): Plan: 13 beat run of NSVT several days ago no symptoms fortunately EF is preserved likely due to electrolyte issues keep mag near 2, keep K near 4 or higher, and keep calcium as close to normal as possible holding coreg due to #1 above (11) Hyponatremia: Plan: 2nd to OZIEL & volume depletion resolved (12) Acute conjunctivitis of both eyes: Plan: resolved finish cipro eye drop course (11/21/22 stop date) (13) Hypomagnesemia: Plan: repleted resolved (14) Peripheral neuropathy: Plan: 2nd to prior chemo for breast ca? cont to hold gabapentin due to lethargy/altered MS (15) Malignant neoplasm of breast metastatic to bone: Plan: follows with Dr Montoya at [facility] Xeloda stopped recently due to concerns for hand/foot syndrome // acral erythema most recent PET scan 08/2022 with skeletal mets but no solid-organ mets CT a/p without intra-abdominal metastatic disease has severe failure to thrive Xeloda to NOT be resumed (16) Hypocalcemia: Plan: ongoing s/p COPIOUS IV & PO supplementation even correcting for hypoalbuminemia her total calcium levels are, at best, 7.5-8 (still low) cont calcitriol + ca/vit D supplementation cont PO phos replacement (17) GERD (gastroesophageal reflux disease): Plan: PPI (18) Hyperlipidemia: Plan: hold statin (19) Depression: Plan: hold paxil due to zyvox usage (20) CAD (coronary artery disease): Plan: per records minimal nonobstructive CAD on prior heart cath (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 appears noninfectious - stool biofire negative; a repeat cdiff test also negative had improved with imodium QID but stool output picking up again in the setting of broad-spectrum IV abx therapy consider colestipol or octreotide if ostomy output worsens again (23) DM type 2 (diabetes mellitus, type 2): Plan: resolved last a1c <6% (24) History of DVT (deep vein thrombosis): Plan: Eliquis BID (25) Severe protein-calorie malnutrition: Plan: near 15kg weight loss since June 2022 2nd to metastatic breast ca albumin low in mid 2's very poor appetite - has not had adequate nutrition in 10+ days poor candidate for enteral or parenteral feedings palliative care consultation: Decided on comfort measures moving forward. No rehospitalization. If patient declines at rehab, she would like to go home with hospice (26) Pseudomonas urinary tract infection: Plan: early in admission - s/p course of cipro for such repeat urine cx negative resolved (27) Tobacco abuse: Plan: cont nicoderm patch (28) Coagulopathy: Plan: elevated PT/INR/PTT mixing study performed - both the PT and PTT corrected either vit K def OR factor deficiency gave vitamin K 5mg x 1 repeat INR modestly improved correction during mixing study rules out inhibitor (29) Goals of care, counseling/discussion: Plan: multiple discussions over the weekend with pt and her sister, Tg palliative care consult requested Dr Mccollum did meet with Ms Ojeda remains DNR/DNI does not want to be re-hospitalized if she becomes sick again POLST form completed today She would like to go to rehab with comfort measures (30) Hypokalemia: Plan: s/p replacement and has improved remains on replacement by mouth no diuretic therapy today repeat BMP am Plan prognosis very poor dispo - [facility] - pt hoping to attempt rehab if that goes poorly would likely transition to hospice at that time appreciate Dr Mccollum's consultation Admission and Anticipated Discharge Date Admission Date: November 08, 2022 Subjective Patient feels well overall. She is comfortable. She is very comfortable with her decision to proceed towards a comfort approach. But she would like to try to get stronger and thus would like [facility] Review of Systems Review of Systems: All systems reviewed & are unremarkable except as noted in Subjective Physical Exam Physical Exam: General appearance: Appears comfortable. Frail looking. Results & Data Results & Data Vital Signs (Past 12 Hours) Vital Signs Temp Pulse Pulse Resp BP Pulse Ox O2 Del Method 11/23/22 11:27 36.8 C 88 20 90/57 L 95 Nasal Cannula 11/23/22 11:07 89 12 91 Nasal Cannula 11/23/22 08:00 91 H 11/23/22 08:00 Nasal Cannula 11/23/22 07:20 36.8 C 92 H 20 99/60 L 90 Nasal Cannula 11/23/22 07:16 92 H 14 90 Nasal Cannula 11/23/22 07:16 92 H 15 90 Nasal Cannula 11/23/22 03:25 36.5 C 60 20 116/67 95 Room Air 11/23/22 03:18 36.9 C 80 19 93/67 L 92 Nasal Cannula O2 Flow Rate 11/23/22 11:27 4 11/23/22 11:07 4.5 11/23/22 08:00 11/23/22 08:00 4 11/23/22 07:20 4 11/23/22 07:16 4 11/23/22 07:16 4 11/23/22 03:25 11/23/22 03:18 4 PG Care Time/CCT Total # of Minutes Spent Total Time Spent with Patient: Total time spent is greater than 50% in coordination of care (as documented) at patient's floor/unit and/or counseling patient: Coding Level of Care Code 47857 SUB INP/OBS CARE 2/35MIN Diagnoses Septic shock A41.9; R65.21 RLL pneumonia J18.9 Acute hypoxic respiratory failure J96.01 Palmar-plantar erythrodysesthesia L27.1 Metabolic acidosis with normal anion gap and bicarbonate losses E87.20 Anemia D64.9 Lethargy R53.83 Acute kidney injury N17.9 (HFpEF) heart failure with preserved ejection fraction I50.30 NSVT (nonsustained ventricular tachycardia) I47.29 Hyponatremia E87.1 Acute conjunctivitis of both eyes H10.33 Hypomagnesemia E83.42 Peripheral neuropathy G62.9 Malignant neoplasm of breast metastatic to bone C50.919; C79.51 Hypocalcemia E83.51 GERD (gastroesophageal reflux disease) K21.9 Hyperlipidemia E78.5 Depression F32.9 CAD (coronary artery disease) I25.10 Proximal renal tubular acidosis N25.[address] Z93.3 DM type 2 (diabetes mellitus, type 2) E11.9 History of DVT (deep vein thrombosis) Z86.718 Severe protein-calorie malnutrition E43 Pseudomonas urinary tract infection N39.0; B96.5 Tobacco abuse Z72.0 Coagulopathy D68.9 Goals of care, counseling/discussion Z71.89 Hypokalemia E87.6
[2022-11-23] MEDS: LIDOCAINE 5% 1 PATCH TD SCH (20:23)
[2022-11-23 23:21] LABS: Appearance Urine Turbid (Clear); Bilirubin Urine Negative (Negative); Blood Urine 3+ (Negative); Color Urine Amber; Glucose Urine UA Negative (Negative); Ketones Urine Negative (Negative); Leukocyte Esterase Urine 1+ (Negative); Nitrite Urine Negative (Negative); Protein Urine 2+ (Negative); Specific Gravity Urine >= 1.030 (1.000-1.030); Urobilinogen Urine Negative (Negative); pH Urine 6.5 (4.5-7.5)
[2022-11-24 00:15] LABS: RBC Urine >30 /hpf (0-4); WBC Urine >30 /hpf (0-5)
[2022-11-24 00:16] LABS: Epithelial Cell Urine 0-5 /lpf (0-5)
[2022-11-24 00:17] LABS: Bacteria Urine Negative (Negative)
[2022-11-24] MEDS: guaiFENesin SUGAR FREE 200 MG/10 ML UDC PO SCH ×2 (01:35→08:10)
[2022-11-24] MEDS: SODIUM CHLOR 7% 4 ML NEB NEB SCH (07:09)
[2022-11-24] MEDS: ALBUTEROL HFA 8 GM INHALER INH SCH ×2 (07:10→11:39)
[2022-11-24] MEDS: IPRATROPIUM BROMIDE HFA INHALER INH SCH ×2 (07:11→11:39)
[2022-11-24] MEDS: CALCITRIOL 0.25 MCG CAPSULE PO SCH (08:10)
[2022-11-24] MEDS: SODIUM BICARBONATE 650 MG TAB PO SCH (08:10)
[2022-11-24] MEDS: PANTOprazole 40 MG TAB PO SCH (08:10)
[2022-11-24] MEDS: POTASSIUM CHLORIDE PWD 20 MEQ PACK PO SCH (08:10)
[2022-11-24] MEDS: LOPERAMIDE HCL 2 MG CAP PO SCH ×2 (08:10→12:04)
[2022-11-24] MEDS: APIXABAN 5 MG TABLET PO SCH (08:10)
[2022-11-24] MEDS: POT PHOSPHATE MONOBASIC W/ SOD TAB PO SCH ×2 (08:10→12:04)
[2022-11-24] MEDS: NICOTINE 14 MG/24 HR PATCH TD SCH (08:11)
[2022-11-24] MEDS: MICONAZOLE NITRATE POWDER 85 GM EXT SCH (08:11)
[2022-11-24] MEDS: CIPROFLOXACIN HCL 0.3% OP SOLN 2.5 ML BTL OPB SCH (08:12)
[2022-11-24] MEDS: INSULIN ASPART PER UNIT CHARGE SC SCH ×2 (08:12→11:55)
[2022-11-24 11:40] VITALS: PULSE 93; RESP 18; O2SAT 91
[2022-11-24 11:45] VITALS: BP 97/66; TEMP 98.1
--- NOTE | 2022-11-24 11:52 | Discharge Summary ---
Date of Service November 24, 2022 Admission HPI Per Admitting Provider 66 female presented with weakness and fall this morning. felt like her legs were giving out. Evaluated in B6, niece at bedside. Patient reported she had been attempting to get up and her legs gave out and buckled underneath her and was not able to get up. She came down on both knees and her right elbow getting stuck between the doorway. She has been having progressive neuropathy and weakness, undergoing treatment for metastatic breast cancer with Zeloda (took dose this morning) and follows with Dr Montoya. Peeling of hands/feet. When she was unable to get up with assistance of her sister Tg, 911 was pérez d to help get her up. She reports normal vitals at that time for Yamel, BP on the soft side but that she typically runs on the lower side. HR normal/not irregular and SpO2 was 90% on room air despite still smoking cigarettes. Patient has seen multiple specialists this past 2 weeks. No one could comment on the peeling of her hands/feet with cardiology, and has been on lasix 40mg daily with additional dose as needed when necessary but hasn't been using much additional. Saw Dr Yepez and was placed on "magnesium sparing diuretic", but unsure what the name was. Decent appetite reported but per family at bedside does not think she has a great appetite. Discussed w/ heme/onc inpatient and peeling from Zeloda and recs to stop such and will use IV agent as discussed last week in follow up. Her ostomy output has also been significant, likely leading to low magnesium. Discussed no significant hx bowel obstructions and likely benefit from some fiber to help slow. She is on 800mg magnesium in the morning and additional 400mg in the afternoon. Also has been having some crusting to her eyes, rx Polymyxin by Dr Shelley but ran out and ongoing issues. On 2L at present but given morphine for her shoulder which improved. She has some excoriations ot her knees as well as skin tear on her right forearm. Also uses depends given ambulation issues at baseline but denies staying in wet depends for extended period of time or urinary symptoms at this time. She does have some significant yeast to her groins. A&D placed by sister, will plan to consult wound care as well given ostomy and some erythema surrounding. She reports other than ongoing weakness she doesn't feel that poorly. Gets routine PET scans, no evidence for brain mets. Discussed admission for electrolyte replacement, therapy evaluations. She is not keen on rehab placement but discussed given not having 24/7 caregivers at home would not be safe due to risk of fracture which would be life threatening for the patient. Denies any recent fever/chills, chest pain, increased shortness of breath/sputum production, abdominal pain, nausea or dysuria at this time. On eliquis for hx DVT in her left leg. ER Course: Humerus xray, CXR WBC 6.4, Hgb 10.4, Plt 290. Na 129, K 4.5. BUN/Cr 31/1.68. Mag 1.3 Was given 1l NSS bolus, morphine 4mg IV, zofran 4mg IV, 2gm IV magnesium replacement ordered Biofire pending Admission Exam Per Admitting Provider General: chronically ill appearing female resting in bed, niece and sister at bedside, just medicated with morphine for right shoulder/elbow pain HEENT: bilateral crusting of eyes, EOMI, pupils reactive, upper dentures in place (doesn't have lowers with her) Resp: slightly diminished in the bases, no wheezing/rales, on 2L post-morphine administration, shallow breathing but no tachypnea/cough appreciated CV: regular rate/rhythm, faint murmur, no significant pitting edema/calf tenderness, pulses palpable GI: +BS, soft, NT +ostomy to LLQ, green/yellow liquid output, surrounding erythema, worse distally to groin ; no espana MSK/Neuro: no focal deficit, no slurred speech, follows commands, generalized weakness R elbow with slight redness from fall/no cellulitis or sanjay step off, ROM intact b/l knee with abrasion anteriorly, pulses palpable, ROM intact generalized weakness but equal bilaterally Skin: Erythema and peeling of skin of palms and soles without tracking erythema up extremities Principal Diagnosis Septic shock Right lower lobe pneumonia Acute hypoxic respiratory failure Palmar plantar erythodysesthesia Acute kidney injury Acute diastolic congestive heart failure Malignant neoplasm of the breast, metastatic to bone High output in colostomy bag Failure to thrive Discharge Exam General appearance: Appears comfortable. Frail looking. Discharge Data Allergies Allergy/AdvReac Type Severity Reaction Status Date / Time aspirin Allergy Mild hives Verified 11/08/22 20:27 ibuprofen Allergy Mild hives Verified 11/08/22 20:27 tamoxifen Allergy Unknown temporary Verified 11/08/22 20:27 left eye vision loss Consultations 11/08/22 17:39 ED Decision to Admit Stat 11/08/22 21:24 Consult Nephrology Routine 11/10/22 17:15 Consult General Surgery Routine 11/12/22 12:14 Consult Podiatry Routine 11/14/22 06:21 Consult Cardiology Routine 11/15/22 21:12 Consult Crocheter Hand Routine 11/19/22 12:45 Consult Palliative Care Routine Ordered Studies 11/10/22 11:28 CT abd pelvis wo con Routine 11/14/22 11:39 CT head/brain wo con Routine Hospital Course (1) Septic shock: source - RLL pneumonia required ICU stay x 48 hours with pressor support shock resolved blood cx's negative urine cx from 11/14 negative (did have pseudomonas UTI early in stay - thus resolved) cortisol 20 s/p stress-dose IV hydrocortisone - now off MRSA screen + --> had been on Vanco but it was stopped in light of the severity of illness re-instituted MRSA coverage w/ Zyvox hold paxil while on zyvox completed 7 days of zosyn completed Zyvox course as well. (2) RLL pneumonia: either aspiration given her recent dysphagia vs nosocomial / gram negative etiology vs MRSA as above stable, has improved; was on high settings of high-flow NC just a few days ago now down to 6 L NC O2 repeat COVID testing negative Completed course of Zosyn and Zyvox (3) Acute hypoxic respiratory failure: 2nd to RLL pneumonia along with probable pulmonary edema had required HFNC for 48 hours but FiO2 requirement improved; now on 6 L NC O2 cont to wean as tolerated Completed Zosyn and Zyvox course cont saline nebs BID cont combivent 1 puff QID (4) Palmar-plantar erythrodysesthesia: all fingers affected and nearly all the toes uncertain if the skin findings are acral erythema / palmar-plantar erythro dysesthesia vs small vessel/cutaneous vasculitis vs other if former Xeloda likely to blame - Xeloda has been implicated in the dermatology literature to cause acral erythema Xeloda has been stopped exam findings cont to improve slowly; she has no pain in her fingers or toes mixing study was negative making presence of antiphospholipid ab's or lupus anticoagulant unlikely (5) Metabolic acidosis with normal anion gap and bicarbonate losses: 2nd to high output losses via colostomy +/- proximal RTA - resolved w/ use of bicarbonate infusion remains on PO bicarbonate tabs bicarb drip is off acidosis resolved (6) Anemia: no overt GI bleeding no signs/symptoms of retroperitoneal bleeding no evidence of hemolysis H/H stable (7) Lethargy: suspect multifactorial causes for such including her previous acidosis and septic shock/RLL pneumonia mentation has improved as we have treated her sepsis/pneumonia she retains decision making capacity (8) Acute kidney injury: resolved cont espana (9) (HFpEF) heart failure with preserved ejection fraction: echo this admission with normal EF lasix 20mg x 1 11/18 with good response but K, Mag, and Ca all went low following the lasix (10) NSVT (nonsustained ventricular tachycardia): 13 beat run of NSVT several days ago no symptoms fortunately EF is preserved likely due to electrolyte issues keep mag near 2, keep K near 4 or higher, and keep calcium as close to normal as possible holding coreg due to #1 above (11) Hyponatremia: 2nd to OZIEL & volume depletion resolved (12) Acute conjunctivitis of both eyes: resolved finish cipro eye drop course (11/21/22 stop date) (13) Hypomagnesemia: repleted resolved (14) Peripheral neuropathy: 2nd to prior chemo for breast ca? cont to hold gabapentin due to lethargy/altered MS (15) Malignant neoplasm of breast metastatic to bone: follows with Dr Montoya at [facility] Xeloda stopped recently due to concerns for hand/foot syndrome // acral erythema most recent PET scan 08/2022 with skeletal mets but no solid-organ mets CT a/p without intra-abdominal metastatic disease has severe failure to thrive Xeloda to NOT be resumed (16) Hypocalcemia: ongoing s/p COPIOUS IV & PO supplementation even correcting for hypoalbuminemia her total calcium levels are, at best, 7.5-8 (still low) cont calcitriol + ca/vit D supplementation cont PO phos replacement (17) GERD (gastroesophageal reflux disease): PPI (18) Hyperlipidemia: hold statin (19) Depression: hold paxil due to zyvox usage (20) CAD (coronary artery disease): per records minimal nonobstructive CAD on prior heart cath (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: stable (22) Colostomy in place: created 2018 due to complications from diverticulitis significant high output of stool recently -- due to side effects from Xeloda?? appears noninfectious - stool biofire negative; a repeat cdiff test also negative had improved with imodium QID but stool output picking up again in the setting of broad-spectrum IV abx therapy consider colestipol or octreotide if ostomy output worsens again (23) DM type 2 (diabetes mellitus, type 2): resolved last a1c <6% (24) History of DVT (deep vein thrombosis): Eliquis BID (25) Severe protein-calorie malnutrition: near 15kg weight loss since June 2022 2nd to metastatic breast ca albumin low in mid 2's very poor appetite - has not had adequate nutrition in 10+ days poor candidate for enteral or parenteral feedings palliative care consultation: Decided on comfort measures moving forward. No rehospitalization. If patient declines at rehab, she would like to go home with hospice (26) Pseudomonas urinary tract infection: early in admission - s/p course of cipro for such repeat urine cx negative resolved (27) Tobacco abuse: cont nicoderm patch (28) Coagulopathy: elevated PT/INR/PTT mixing study performed - both the PT and PTT corrected either vit K def OR factor deficiency gave vitamin K 5mg x 1 repeat INR modestly improved correction during mixing study rules out inhibitor (29) Goals of care, counseling/discussion: multiple discussions over the weekend with pt and her sister, Tg palliative care consult requested Dr Mccollum did meet with Ms Ojeda remains DNR/DNI does not want to be re-hospitalized if she becomes sick again POLST form completed today She would like to go to rehab with comfort measures (30) Hypokalemia: s/p replacement and has improved remains on replacement by mouth no diuretic therapy today repeat BMP am Plan prognosis very poor dispo - [facility] - pt hoping to attempt rehab if that goes poorly would likely transition to hospice at that time appreciate Dr Mccollum's consultation Total Time Total Time Spent Total Time Spent (In Minutes): 35 Discharge Plan Discharge Items Patient Disposition: Transfer [facility] Reason For Visit: WEAKNESS, FALL, HYPOMAGNESEMIA Discharge Diagnosis: Septic shock Right lower lobe pneumonia Acute hypoxic respiratory failure Palmar plantar erythodysesthesia Acute kidney injury Acute diastolic congestive heart failure Malignant neoplasm of the breast, metastatic to bone High output in colostomy bag Failure to thrive Activity: As commented below Activity Comment: Per PT/OT recommended Non-emergency contact: Primary Care Provider Call non-emergency contact if: you have any medication questions Follow-up/Referrals: Crystal Shelley MD [Primary Care Provider] - Diet: Regular Addtl Attending Provider Instructions: Advised to note that you are being discharged with a comfort care approach You are going to rehab to try to get stronger but the plan is for no rehospitalization a POLST form has been completed Pending Studies at Discharge: No Stand-Alone Forms: My [facility] [employer] Skilled Items Patient informed of condition?: Yes DNR: Yes Discharge Level of Care: Skilled Communicable Disease: No Discharge Prognosis: Stable Lines: None Urinary Catheter: Yes Medications and DC Order Prescriptions: New potassium chloride 20 mEq Packet 20 meq PO TID Qty: 30 0RF Phospha 250 Neutral 250 mg Tablet 1 tab PO QID 14 Days Qty: 56 0RF sodium bicarbonate 650 mg Tablet 1,300 mg PO BID 14 Days Qty: 56 0RF calcitriol 0.25 mcg Capsule 1 mcg PO QAM 14 Days Qty: 56 0RF Continued paroxetine HCl [Paxil] 30 mg tablet 30 mg PO QAM Qty: 90 3RF Eliquis 5 mg tablet 5 mg PO BID Qty: 180 3RF (DME) Wheelchair (Manual) Device See Rx Instructions .Route Qty: 1 0RF Rx Instructions: Transport Wheelchair carvedilol 3.125 mg tablet 3.125 mg PO BID Qty: 180 3RF Rx Instructions: must administer with a meal/food gabapentin 300 mg capsule 300 mg PO .COMPLEX Qty: 360 1RF Rx Instructions: 300 mg PO QID (AT 6AM, 12PM, 4PM, AND 8PM) magnesium oxide 400 mg (241.3 mg magnesium) tablet 800 mg PO BID Qty: 90 1RF atorvastatin 10 mg tablet 10 mg PO QPM Qty: 90 1RF ergocalciferol (vitamin D2) 1,250 mcg (50,000 unit) capsule 1,250 mcg PO .COMPLEX Qty: 8 0RF Rx Instructions: 1,250 mcg orally twice weekly; mondays and omeprazole 20 mg capsule,delayed release(DR/EC) 20 mg PO QAM Qty: 90 3RF amiloride 5 mg tablet 5 mg PO QAM Discontinued acetaminophen [Tylenol Extra Strength] 500 mg tablet 500 mg PO Q6H PRN (Reason: Pain) furosemide 40 mg tablet 40 mg PO QAM Qty: 90 3RF fulvestrant 250 mg/5 mL syringe 500 mg IM ONCE Qty: 10 0RF Rx Instructions: Pt states she has a loading dose and then every month after. given in cancer center losartan 25 mg tablet 12.5 mg PO QPM Qty: 15 3RF metformin 1,000 mg tablet 1,000 mg PO BID Qty: 180 1RF potassium chloride 20 mEq tablet extended release 20 meq PO QAM Qty: 90 3RF calcium carbonate-vitamin D3 [Calcium 600 + D(3)] 600 mg-10 mcg (400 unit) Tablet 1 tab PO DAILY magnesium chloride 64 mg tablet,delayed release (DR/EC) 64 mg PO BID Discharge Orders: Discharge Order (Routine); Ordered 11/24/22 Ordered By: Sohail Araiza Admission Data Admit Date/Time: 11/08/22 19:01 Attending Provider: Sohail Araiza Admit Provider: Perez Sanz Primary Care Provider: Crystal Shelley Other Providers: [facility] ; Perez Sanz ; Michael Yepez ; Chelo Shay ; Sky Roper ; Cr Alcantar ; Home [facility] ; Jacqueline Barroso Other Interventions: Discharge Summary Assessment (RN) Last Done: 11/24/22 12:39 Coding Level of Care Code 62293 INP/OBS DISCH >30 MIN Diagnoses Septic shock A41.9; R65.21 RLL pneumonia J18.9 Acute hypoxic respiratory failure J96.01 Palmar-plantar erythrodysesthesia L27.1 Metabolic acidosis with normal anion gap and bicarbonate losses E87.20 Anemia D64.9 Lethargy R53.83 Acute kidney injury N17.9 (HFpEF) heart failure with preserved ejection fraction I50.30 NSVT (nonsustained ventricular tachycardia) I47.29 Hyponatremia E87.1 Acute conjunctivitis of both eyes H10.33 Hypomagnesemia E83.42 Peripheral neuropathy G62.9 Malignant neoplasm of breast metastatic to bone C50.919; C79.51 Hypocalcemia E83.51 GERD (gastroesophageal reflux disease) K21.9 Hyperlipidemia E78.5 Depression F32.9 CAD (coronary artery disease) I25.10 Proximal renal tubular acidosis N25.[address] Z93.3 DM type 2 (diabetes mellitus, type 2) E11.9 History of DVT (deep vein thrombosis) Z86.718 Severe protein-calorie malnutrition E43 Pseudomonas urinary tract infection N39.0; B96.5 Tobacco abuse Z72.0 Coagulopathy D68.9 Goals of care, counseling/discussion Z71.89 Hypokalemia E87.6
== END 2022-11-24 13:31 | DRG 682 ==
LOC: ED 15:57 → EDINP 19:01 → SUATTDRO 19:01 → 2W 21:20 → 1E 11-15 19:59 → 2S 11-17 18:14

== ENCOUNTER 2024-10-03 13:01 | Inpatient (IN) ==
[2024-10-03 13:35] LABS: Hematocrit (blood only) 27.2 % (37.0-47.0); Hemoglobin 8.4 g/dl (12.0-16.0); Mean Corpuscular Hemoglobin 33.3 pg (25.0-34.0); Mean Corpuscular Volume 107.9 fL (80.0-100.0); Platelet Count 248 K/uL (130-400); RDW Standard Deviation 67.8 fL (36.4-46.3); Red Blood Count 2.52 M/uL (4.20-5.40); White Blood Count 30.69 K/ul (4.8-10.8)
--- NOTE | 2024-10-03 13:41 | XRay Report ---
XR chest 1V portable CLINICAL HISTORY: Sepsis. COMPARISON STUDY: Chest radiograph December 05, 2023. Chest CT July 22, 2024. FINDINGS: Numerous sclerotic skeletal lesions are again noted. Cardiomegaly is unchanged. Mediastinal contours are stable. There is no pneumothorax. There are small bilateral pleural effusions. Intersti tial thickening persists. There are hazy bibasilar opacities. IMPRESSION: 1. Cardiomegaly. Stable interstitial thickening suggestive of mild pulmonary edema. 2. Small bilateral pleural effusions. 3. Hazy bibasilar opacities which favor atelectasis although an infectious process could appear simil ar. ACT 112: Negative or not required by law. Electronically signed by: Gabe Ramirez M.D. 10/03/2024 1:39 PM
[2024-10-03 13:53] LABS: Immature Granulocytes # (auto) 1.82 K/uL (0.01-0.20); Immature Granulocytes % (auto) 5.9 %; Macrocytosis Present; Ovalocytes 1+; Polychromasia 1+; Toxic Granulation 1+
[2024-10-03 13:55] LABS: Alanine Aminotransferase 5.0 U/L (7-52); Alkaline Phosphatase 200.0 U/L (34-104); Anion Gap 5.0 (3-11); Bilirubin,Total 0.5 mg/dl (0.2-1.0); Blood Urea Nitrogen 34.0 mg/dl (6-23); Calcium 8.2 mg/dl (8.6-10.3); Carbon Dioxide 26.0 mmol/L (21-32); Chloride 103.0 mmol/L (98-107); Creatinine Clr Calc Pharmacy 30.7 ml/min; Glucose 130.0 mg/dl (70-99(Fasting)); Magnesium 2.3 mg/dl (1.7-2.4); Potassium 4.6 mmol/L (3.5-5.1); Sodium 134.0 mmol/L (136-145); Total Protein 5.3 gm/dl (6.0-8.3)
[2024-10-03] MEDS: SODIUM CHLORIDE 0.9% 500 ML IV ONE ×2 (13:59→15:24)
[2024-10-03 14:00] LABS: INR 1.5 (0.9-1.1); Prothrombin Time 16.1 Seconds (9.0-12.0)
[2024-10-03] MEDS: DAPTOmycin 775 MG in SYRINGE 0 ML IV ONE (14:35)
[2024-10-03] MEDS: PIPERACILLIN/TAZOBACTAM 4.5 GM/100 ML BAG IV ONE (14:35)
[2024-10-03] MEDS: SODIUM CHLORIDE 0.9% 1,000 ML IV SCH (14:35)
--- NOTE | 2024-10-03 15:20 | CT Scan Report ---
ABDOMEN AND PELVIS CT WITHOUT CONTRAST CT DOSE: 1315.52 mGy.cm HISTORY: Acute kidney injury with sepsis OZIEL, sepsis TECHNIQUE: Multiaxial CT images of the abdomen and pelvis were performed without contrast. A dose lo wering technique was utilized adhering to the principles of ALARA. COMPARISON STUDY: 07/22/2024 FINDINGS: Decreased attenuation of the cardiac blood pool suggestive of anemia. Increased size of the pleural effusions compared to the prior study which are now small to moderate. Dependent bibasilar c onsolidation favors atelectasis. Intralobular septal thickening also noted. No pneumatosis or pneumop eritoneum. Spleen is mildly enlarged, 13.8 cm. Moderate pancreatic atrophy. Adrenal glands are within normal limits. Hepatic steatosis without mass or evidence of cirrhosis. Cholelithiasis without CT ev idence of acute cholecystitis. Mild cortical thinning of the kidneys. Ill-defined hyperdense foci noted within the right renal colle cting system which involves the superior midpole calyces and renal pelvis. No hydronephrosis. Decompr essed bladder. Pelvic structures are not well seen secondary to streak artifact from left hip arthrop lasty. Atherosclerosis of the aorta. No bowel obstruction or bowel wall thickening. Trace ascites wit h anasarca. Left lower quadrant ostomy. Numerous fat and bowel-containing abdominal wall hernias appe ar similar to prior. Multifocal osseous metastasis redemonstrated with mixed lytic and sclerotic foci . There is no significant change compared to 07/22/2024. IMPRESSION: 1. Ill-defined hyperdense subcentimeter foci within the right renal collecting system of the right ki dney without hydronephrosis. Findings are suggestive of renal calculi with retained contrast consider ed less likely. Correlate with urinalysis. 2. Fluid overload with [id number] pleural effusions, interstitial pulmonary edema, anasarca wi th trace ascites. 3. Cholelithiasis. 4. Numerous bowel containing abdominal wall hernias redemonstrated without obstruction. 5. Stable appearance of the extensive multifocal osseous metastatic disease. ACT 112: Negative or not required by law. The above report was generated using voice recognition software. It may contain grammatical, syntax o r spelling errors. Electronically signed by: Dayne Gordon M.D. 10/03/2024 3:17 PM
[2024-10-03] MEDS ORDERED: STAT IV Infusion **Titration per Protocol STA (15:52)
--- NOTE | 2024-10-03 16:06 | History & Physical Report ---
Date of Service October 03, 2024 Assessment & Plan (1) Sepsis: Plan: Sepsis, UTI UA infected appearing. Recent UCx with MSSA and Pseudomonas aeruginosa. Pseudomonas was a ciprofloxacin intermediate sensitivity. Initially on cipro, when sensitivities returned --> switched to levo/bactrim renally dosed 09/29. Received Zosyn/daptomycin in the ER. CTA/P: Right subcentimeter foci possible renal calculi with retained contrast less likely, no signs of hydro. Small to moderate pleural effusions, interstitial pulmonary edema anasarca and trace ascites is seen. Extensive multifocal osseous disease. Numerous abdominal wall hernias remonstrated without obstruction. Cholelithiasis without cholecystitis. CXR: Cardiomegaly. Mild pulmonary edema. Bilateral pleural effusions. Hazy bibasilar opacities procalcitonin elevated Leukocytosis of 30 Afebrile Received 1.1 L of fluid on admission. Lactate is not elevated. 3 L oxygen requirement in the ER, no home requirement Hypoxia with sepsis however given CT and evidence of volume overload with h istory of HFpEF without recent diuretics concerning for combined pulmonary edema and increased oxygenation with persistent hypotension worsening to 60s/40s MAP55 on reassessment --> fluids running (1.1L in at time of assessment) --> Levophed ordered goal MAP 65. ICU consulted. Patient receives dex pretreatment with chemo infusions around every 3 weeks. Was next due next Sunday. At risk for adrenal insufficiency. Random cortisol is pending. Hydrocortisone 100mg x 1 ordered, 50 mg every 6h. Switch antibiotics to cefepime. Appreciate recommendations Continue cefepime renally adjusted to every 12 hours Blood cultures pending Heart failure with normalized EF Previously with nonischemic cardiomyopathy related to cancer treatments, at that time reduced ejection fraction, subsequently normalized since 2021 Last echo 05/2024 with LVSF normal, moderately dilated RV, borderline MV, moderate TR No chest pain. Troponin uptrending 121 on repeat, suspect demand with sepsis. Repeat echo is pending, troponins trended Per patient was taken off Lasix several months ago Carvedilol held for hypotension w/ volume overload but intravascularly depleted on admit. Tx of sepsis, adrena l insufficiency and then diurese when able Metastatic breast cancer ER/OR positive HER2/eddie negative breast cancer with mets to bone. C/B lower extremity DVT 02/2021 on Eliquis Most recently on cycle #22 of Enhertu treatment. Steroid pretreatment before these. Last treatment was 2-3 weeks ago . Was previously on Xgeva however this was held History of DVT/PE - On eliquis - Took AM 10/03 Pending ICU evaluation and any need for lines/Procedures--> hold eliquis transition to heparin gtt no bolus. Start gtt. at 2100 hrs Ostomy Status - 2/2 Diverticular perforation ~6 years ago - Ostomy intact, no change in output DVT prophylaxis: Anticoagulated Diet: Heart healthy Disposition: ICU CODE STATUS: DNR/DNI. Okay with antibiotics and short course of vasopressors, would not want further escalation of care. History of Present Illness Primary Care Provider: [facility] Yamel is a 68-year-old female with a past medical history of breast cancer s/p left breast mastectomy 1994, right prophylactic total mastectomy, PE 2015, enlarging mediastinal/hilar lymphadenopathy 2023 and skeletal metastatic disease 2023 started on Enhertu 06/21/2023 with extensive bony metastatic disease redemonstrated 05/2023 and palliative radiation of the right shoulder 11/2023, ostomy status due to prior proved diverticulitis who presents with worsening leukocytosis, hypotension, and suspected urosepsis. She reports she has had around 9 to 10 days of dysuria. Was diagnosed with UTI as an outpatient and was placed on Bactrim and levofloxacin. She did not improve, has had uptrending leukocytosis although no fevers. Blood pressure is normally ~90s-low 100s systolic however she has been hypotensive more so in the last 24 hours, feeling poorly, with ongoing polyuria that has not improved --> was referred to the ER. Denies chills/rigors. Denies flank pain. Denies abdominal pain. She is short of breath moving around in bed. She denies chest pain at any point. She reports she does have a history of failure previously on Lasix but this was discontinued due to rising renal function. Denies heart attack/GA. Last echo was with normal EF. (On chart review does have history of nonischemic HFrEF, subsequently normalized) Does not have a home oxygen requirement. Was placed on 3 L for hypoxia, uptitrated to 4L Denies fevers and chills, notes her only UTI symptom has been polyuria She does have a port. She has not had any pain warmth or tenderness overlying her port site Denies abdominal pain. Ostomy is functioning normally without any change in output Denies cuts falls, lacerations and injuries. Denies painful wounds/ulcers Denies antibiotic allergies Former tobacco use in remission. Denies alcohol use. DNR/DNI. She is okay with vasopressors, but if she were to further deteriorate she would not want any further escalation of care beyond this. Allergies Allergy/AdvReac Type Severity Reaction Status Date / Time aspirin Allergy Intermediate hives Verified 12/14/23 12:11 ibuprofen Allergy Intermediate hives Verified 12/14/23 12:11 tamoxifen AdvReac Intermediate temporary Verified 12/14/23 12:11 left eye vision loss Home Medications Medication Instructions Recorded Confirmed Type Wheelchair (Manual) #1 ea 07/14/22 12/14/23 Rx omeprazole 20 mg capsule,delayed 20 mg PO QAM #90 caps 10/30/22 10/03/24 Rx release carvedilol 3.125 mg tablet 3.125 mg PO BIDM 04/05/23 10/03/24 History gabapentin 300 mg capsule 300 mg PO QID 04/05/23 10/03/24 History loperamide 2 mg tablet (Imodium 2 mg PO Q4H PRN Diarrhea 04/05/23 10/03/24 History A-D) magnesium oxide 400 mg (241.3 mg 800 mg PO BIDM 04/05/23 10/03/24 History magnesium) tablet colostomy bags #15 ea 07/27/23 12/14/23 Rx eucalyptus-menthol oral mucosal 1 esteban mucous membrane UD PRN Cough 11/30/23 10/03/24 History lozenge ferrous sulfate 325 mg (65 mg 325 mg PO QAM 11/30/23 10/03/24 History iron) tablet folic acid 1 mg tablet 1 mg PO QAM 11/30/23 10/03/24 History apixaban 2.5 mg tablet (Eliquis) 2.5 mg PO BID 02/28/24 10/03/24 History atorvastatin 10 mg tablet 10 mg PO DAILY 02/28/24 10/03/24 History magnesium hydroxide 400 mg/5 mL 30 ml PO DAILY PRN Constipation 02/28/24 10/03/24 History oral suspension (Milk of Magnesia) methyl salicylate-menthol topical 1 applic topical BID PRN Pain 02/28/24 5 History cream sodium phosphates 19 gram-7 118 ml OR DAILY PRN Constipation 02/28/24 10/03/24 History gram/118 mL enema (Fleet Enema) Calcium + D 1 tab PO QID 10/03/24 10/03/24 History bisacodyl 10 mg rectal suppository 10 mg OR DAILY PRN Constipation 10/03/24 10/03/24 History (Dulcolax (bisacodyl)) buspirone 10 mg tablet 10 mg PO TID PRN anxiety 10/03/24 10/03/24 History diclofenac sodium 1 % topical gel 2 g topical QID 10/03/24 10/03/24 History fentanyl 37.5 mcg/hour transdermal 1 patch topical .Q 3 DAYS 10/03/24 10/03/24 History patch heparin lock flush (porcine) 5 ml IV DAILY 10/03/24 10/03/24 History levofloxacin 500 mg tablet 500 mg PO .DAILY FOR 7 DAYS 10/03/24 10/03/24 History oxycodone 10 mg tablet 10 mg PO Q6H PRN Pain, Severe 10/03/24 10/03/24 History oxycodone 5 mg capsule 5 mg PO Q6H PRN Pain, Moderate 10/03/24 10/03/24 History paroxetine HCl 30 mg tablet 30 mg PO DAILY 10/03/24 10/03/24 History sulfamethoxazole 400 1 tab PO BID 10/03/24 10/03/24 History mg-trimethoprim 80 mg tablet Past Med/Surg History Problem List (Updated 10/03/24 @ 17:54 by Camron Rivera MD, [facility]) Pleural effusion Shock circulatory Sepsis Encounter for care related to vascular access port Hypercalcemia (Acute) Anorexia Coagulopathy Anemia Severe protein-calorie malnutrition NSVT (nonsustained ventricular tachycardia) 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 Intertrigo Hypomagnesemia (Acute) High anion gap metabolic acidosis History of colon polyps GERD (gastroesophageal reflux disease) Elevated lactic acid level Preoperative cardiovascular examination Lesion of femur Benign positional vertigo Anxiety Benign hypertension Breast cancer Depression Disc degeneration, lumbar Hyperlipidemia Lung nodule Osteopenia Peripheral neuropathy Radiculopathy Restrictive lung disease Vitamin D deficiency Medical History (Updated 10/03/24 @ 17:54 by Camron Rivera MD, [facility]) Port-A-Cath in place (12/05/23) Insertion Access Port Internal Jugular(Right) - Shyam oCok MD, FACS Vitamin D deficiency History of DVT (deep vein thrombosis) GERD (gastroesophageal reflux disease) Colostomy in place 2018 (after diverticular perforation complications) CAD (coronary artery disease) Follows with [facility] cardio [facility] resident resides at [facility] History of sepsis per [facility] Record Cognitive communication deficit Dysphagia Generalized muscle weakness Personal history of transient ischemic attack (TIA), 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 deficits per [facility] Record, no further info provided Benign paroxysmal vertigo Essential (primary) hypertension Anxiety disorder Major depressive disorder Other abnormalities of gait and mobility Anorexia Unspecified severe protein-calorie malnutrition Polyneuropathy Anemia CHF (congestive heart failure) Breast cancer metastasized to bone hx chemo, radiation + surgery Difficult intravenous access Left leg DVT Taking Eliquis Diverticular disease PVC (premature ventricular contraction) h/o PAC (premature atrial contraction) Hx Cardiomyopathy Follows with [facility] cardio LV dysfunction Lumbar disc herniation with radiculopathy Diabetes Surgical History (Updated 12/05/23 @ 05:57 by Courtney Treadwell, JASON) History of bowel resection Ostomy placed History of total left hip replacement per [facility] record History of colonoscopy History of humerus fracture (03/26/20) with open reduction and internal fixation due to pathological fracture (Dr. Gillette) History of surgery for malignant neoplasm 2017 removal of substernal mass + radiation History of intestinal surgery History of cardiac cath 2017- no stents History of hysterectomy History of lumbar laminectomy H/O bilateral mastectomy limb restriction LUE per [facility] Record Family History Mother Breast cancer Sister Breast cancer Hypertension Father Myocardial infarction Prostate cancer Heart disease Other Cancer Denies family history of Ovarian cancer Colorectal cancer Social History (Updated 11/28/23 @ 16:37 by Lakisha Salvador, JASON) Smoking Status: Former smoker Tobacco Type: Cigarettes Age Started Using Tobacco: 15; Second Hand Exposure: No; Do You Dip or Chew Tobacco: No; Hx Alcohol Use: No Hx Substance Use: No Preferred Language: Taiwanese Communication Ability: Effective Visual Impairment: No Limitations Hearing Ability: Normal [place]ipper Required: No Beliefs That Will Affect Care: None marital status: Single Current Living Situation: Intermediate Current Living Situation Comment: [facility] current occupational status: retired How many Children do You have: 0 Feels Safe at Home: Yes Childhood Exposure to Second-Hand Smoke: No Diet: regular caffeine: Yes during the past year weight has: increased > 10 lbs Dental Care, Regularly: Yes Physical Activity Frequency: Does not Exercise Seatbelt Use: never Sunscreen Use: Yes Assistive Devices: Walker and Wheelchair Physical Exam Physical Exam: General: A&Ox3. NAD. Cooperative. HEENT: Atraumatic, normocephalic. Vision and hearing grossly intact. Vision and hearing grossly intact Thorax: Port in place, no overlying warmth/tenderness. No purulent discharge Pulm: Diminished, bibasilar crackles and trace L basilar rales. On nasal cannula, she is not in respiratory distress at time of assessment Cardiac: RRR, -mrg. Radial pulses intact and symmetrical. Abdominal: Soft, nontender. Ostomy in place with dark brown/green output. No blood. Extremities: Bilateral 4+ pitting edema throughout the lower extremities Results & Data Results & Data Vital Signs (Past 12 Hours) Vital Signs Temp Pulse Pulse Resp BP BP Pulse Ox 10/03/24 15:30 71 8 L 100 10/03/24 15:24 71 13 81/44 L 97 10/03/24 15:15 72 12 81/44 L 95 10/03/24 15:04 78/43 L 10/03/24 15:04 78/43 L 10/03/24 15:00 71 14 98 10/03/24 14:46 93/37 L 10/03/24 14:42 72 14 100 10/03/24 14:30 74 20 100 10/03/24 14:18 72 17 94 10/03/24 14:03 76 19 100 10/03/24 14:03 75 10/03/24 14:00 100/53 L 10/03/24 13:57 75 15 97 10/03/24 13:33 14 10/03/24 13:31 76/45 L 10/03/24 13:29 36.4 C L 92 H 22 76/45 L 94 O2 Del Method O2 Flow Rate 10/03/24 15:30 10/03/24 15:24 Nasal Cannula 3 10/03/24 15:15 Nasal Cannula 3 10/03/24 15:04 10/03/24 15:04 10/03/24 15:00 Nasal Cannula 3 10/03/24 14:46 10/03/24 14:42 Nasal Cannula 3 10/03/24 14:30 Nasal Cannula 3 10/03/24 14:18 Room Air 10/03/24 14:03 Nasal Cannula 3 10/03/24 14:03 10/03/24 14:00 10/03/24 13:57 Nasal Cannula 3 10/03/24 13:33 10/03/24 13:31 10/03/24 13:29 Nasal Cannula 3 PG Care Time/CCT Total # of Minutes Spent Total Time Spent with Patient: Total time spent is greater than 50% in coordination of care (as documented) at patient's floor/unit and/or counseling patient: Coding Level of Care Code 98038 INT INP/OBS CARE 3/75MIN Diagnoses Sepsis A41.9
[2024-10-03] MEDS: NOREPINEPHRINE/D5W 4 MG/250 ML PLCT IV SCH (16:17)
[2024-10-03] MEDS ORDERED: HYDROCORTISONE SOD SUCCINATE 100 MG/2 ML VIAL IV STA (16:22)
--- NOTE | 2024-10-03 17:48 | Critical Care Consultation ---
Date of Consultation October 03, 2024 Assessment & Plan (1) Shock circulatory: (2) Sepsis: (3) Severe protein-calorie malnutrition: (4) GERD (gastroesophageal reflux disease): (5) Osteopenia: (6) Pleural effusion: (7) Port-A-Cath in place: (8) History of DVT (deep vein thrombosis): (9) Colostomy in place: (10) Anxiety disorder: Plan Reason Critically Ill: 68-year-old female being admitted to the hospital because of urinary sepsis. Was found to be hypotensive in the ED, sent to ICU for further care Past medical history: Breast cancer s/p mastectomy 1994, prophylactic right- sided total mastectomy, PE 2015 on Eliquis, skeletal metastatic disease in 2023 Neuro - [facility]: Negative --Anxiety/depression On paroxetine and olanzapine at home Cardiac - 2D echo 08/26/2024: EF 60-65%, mild to moderate TR, RVSP 40-50 mmHg, mild to moderate MR, RV moderately dilated with normal function --Shock Likely septic Continue vasopressor support to keep MAP greater than 65 Random cortisol 11.68, start the patient on empiric corticosteroids --Elevated troponin Likely type II NM Continue to trend Respiratory - -- Acute hypoxic respiratory failure Likely secondary to pleural effusion O2 supplementation to keep oxygen saturation between 90-92% BiPAP nightly and as needed shortness of breath --Bilateral pleural effusion Likely from HFpEF BNP 420 GI - -- Chronically elevated alk phos Likely secondary to osseous metastasis Continue to monitor -- Protein calorie malnutrition with albumin of 2.2 RENAL/LYTES - -- CKD Monitor BUNs/creatinine Avoid nephrotoxic medication ENDO - -- ICU hypoglycemia protocol HEME - --Macrocytic anemia Monitor H&H -- History of breast cancer metastatic ER/TN positive HER2 negative --History of DVT On Eliquis, last dose at home morning of 10/03 ID - -- UTI sepsis Urine culture growing MSSA and Pseudomonas which is sensitive to cephalosporins and penicillin Patient was discharged home on levofloxacin with intermediate coverage to Pseudomonas Procalcitonin --Prophylaxis VTE: Eliquis GI: Pantoprazole Lines: Right-sided Port-A-Cath, peripheral, Rice Diet: Clear liquid Plan: Strict ins and outs, continue with antibiotics Hydrocortisone given the history of getting dexamethasone with chemotherapy Continue with cefepime which should cover for MSSA as well as Pseudomonas aeruginosa Try to wean off vasopressors I have personally spent 56 minutes of critical care time in the direct management of this patient. This is a life/limb threatening event. This includes time spent evaluating patient, direct bedside care, chart review, placing orders, interpretation of diagnostic studies, discussion with consultants, patient, and family members, as well as other required patient management activities. This time is exclusive of all separately billable procedures, and teaching time and separate from and in addition to any other critical care service time. History of Present Illness History of Present Illness 68-year-old female being admitted to the hospital because of urinary sepsis. Was found to be hypotensive in the ED, sent to ICU for further care Past medical history: Breast cancer s/p mastectomy 1994, prophylactic right- sided total mastectomy, PE 2015 on Eliquis, skeletal metastatic disease in 2023 At the time of examination in the ICU patient was on Levophed 0.05, MAP was in the high 70s. I went down to 0.03 She was saturating 93-94% on 2 L nasal cannula She was not in any respiratory distress. She says she is feeling better compared to when she came to the hospital. She was recently discharged on Bactrim as well as ciprofloxacin for MSSA in the urine. She said that she is compliant with it. She is still getting her chemotherapy and last chemo was 3 weeks ago. Denies any dysuria No nausea or vomiting No chest pain Does complain of generalized lethargy. No unusual headache or blurry vision Social history: Approximately 77-[id number] smoking history, quit at the age of 65 Allergies Allergy/AdvReac Type Severity Reaction Status Date / Time aspirin Allergy Intermediate hives Verified 12/14/23 12:11 ibuprofen Allergy Intermediate hives Verified 12/14/23 12:11 tamoxifen AdvReac Intermediate temporary Verified 12/14/23 12:11 left eye vision loss Home Medications Medication Instructions Recorded Confirmed Type Wheelchair (Manual) #1 ea 07/14/22 12/14/23 Rx omeprazole 20 mg capsule,delayed 20 mg PO QAM #90 caps 10/30/22 10/03/24 Rx release carvedilol 3.125 mg tablet 3.125 mg PO BIDM 04/05/23 10/03/24 History gabapentin 300 mg capsule 300 mg PO QID 04/05/23 10/03/24 History loperamide 2 mg tablet (Imodium 2 mg PO Q4H PRN Diarrhea 04/05/23 10/03/24 History A-D) magnesium oxide 400 mg (241.3 mg 800 mg PO BIDM 04/05/23 10/03/24 History magnesium) tablet colostomy bags #15 ea 07/27/23 12/14/23 Rx eucalyptus-menthol oral mucosal 1 esteban mucous membrane UD PRN Cough 11/30/23 10/03/24 History lozenge ferrous sulfate 325 mg (65 mg 325 mg PO QAM 11/30/23 10/03/24 History iron) tablet folic acid 1 mg tablet 1 mg PO QAM 11/30/23 10/03/24 History apixaban 2.5 mg tablet (Eliquis) 2.5 mg PO BID 02/28/24 10/03/24 History atorvastatin 10 mg tablet 10 mg PO DAILY 02/28/24 10/03/24 History magnesium hydroxide 400 mg/5 mL 30 ml PO DAILY PRN Constipation 02/28/24 10/03/24 History oral suspension (Milk of Magnesia) methyl salicylate-menthol topical 1 applic topical BID PRN Pain 02/28/24 10/03/24 History cream sodium phosphates 19 gram-7 118 ml TN DAILY PRN Constipation 02/28/24 10/03/24 History gram/118 mL enema (Fleet Enema) Calcium + D 1 tab PO QID 10/03/24 10/03/24 History bisacodyl 10 mg rectal suppository 10 mg TN DAILY PRN Constipation 10/03/24 10/03/24 History (Dulcolax (bisacodyl)) buspirone 10 mg tablet 10 mg PO TID PRN anxiety 10/03/24 10/03/24 History diclofenac sodium 1 % topical gel 2 g topical QID 10/03/24 10/03/24 History fentanyl 37.5 mcg/hour transdermal 1 patch topical .Q 3 DAYS 10/03/24 10/03/24 History patch heparin lock flush (porcine) 5 ml IV DAILY 10/03/24 10/03/24 History levofloxacin 500 mg tablet 500 mg PO .DAILY FOR 7 DAYS 10/03/24 10/03/24 History oxycodone 10 mg tablet 10 mg PO Q6H PRN Pain, Severe 10/03/24 10/03/24 History oxycodone 5 mg capsule 5 mg PO Q6H PRN Pain, Moderate 10/03/24 10/03/24 History paroxetine HCl 30 mg tablet 30 mg PO DAILY 10/03/24 10/03/24 History sulfamethoxazole 400 1 tab PO BID 10/03/24 10/03/24 History mg-trimethoprim 80 mg tablet Patient History Medical History (Updated 10/03/24 @ 17:54 by Camron Rivera MD, [facility]) Port-A-Cath in place (12/05/23) Insertion Access Port Internal Jugular(Right) - Shyam Cook MD, FACS Vitamin D deficiency History of DVT (deep vein thrombosis) GERD (gastroesophageal reflux disease) Colostomy in place 2017 (after diverticular perforation complications) CAD (coronary artery disease) Follows with [facility] cardio longterm resident resides at [facility] History of sepsis per [facility] Record Cognitive communication deficit Dysphagia Generalized muscle weakness Personal history of transient ischemic attack (TIA), 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 deficits per [facility] Record, no further info provided Benign paroxysmal vertigo Essential (primary) hypertension Anxiety disorder Major depressive disorder Other abnormalities of gait and mobility Anorexia Unspecified severe protein-calorie malnutrition Polyneuropathy Anemia CHF (congestive heart failure) Breast cancer metastasized to bone hx chemo, radiation + surgery Difficult intravenous access Left leg DVT Taking Eliquis Diverticular disease PVC (premature ventricular contraction) h/o PAC (premature atrial contraction) Hx Cardiomyopathy Follows with [facility] cardio LV dysfunction Lumbar disc herniation with radiculopathy Diabetes Surgical History (Updated 12/05/23 @ 05:57 by Courtney Treadwell RN) History of bowel resection Ostomy placed History of total left hip replacement per [facility] record History of colonoscopy History of humerus fracture (03/26/20) with open reduction and internal fixation due to pathological fracture (Dr. Gillette) History of surgery for malignant neoplasm 2017 removal of substernal mass + radiation History of intestinal surgery History of cardiac cath 2017- no stents History of hysterectomy History of lumbar laminectomy H/O bilateral mastectomy limb restriction LUE per [facility] Record Family History Mother Breast cancer Sister Breast cancer Hypertension Father Myocardial infarction Prostate cancer Heart disease Other Cancer Denies family history of Ovarian cancer Colorectal cancer Social History (Updated 11/28/23 @ 16:37 by Lakisha Salvador RN) Smoking Status: Former smoker Tobacco Type: Cigarettes Age Started Using Tobacco: 15; Second Hand Exposure: No; Do You Dip or Chew Tobacco: No; Hx Alcohol Use: No Hx Substance Use: No Preferred Language: Filipino Communication Ability: Effective Visual Impairment: No Limitations Hearing Ability: Normal 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 Required: No Beliefs That Will Affect Care: None marital status: Single Current Living Situation: Prison Current Living Situation Comment: [facility] current occupational status: retired How many Children do You have: 0 Feels Safe at Home: Yes Childhood Exposure to Second-Hand Smoke: No Diet: regular caffeine: Yes during the past year weight has: increased > 10 lbs Dental Care, Regularly: Yes Physical Activity Frequency: Does not Exercise Seatbelt Use: never Sunscreen Use: Yes Assistive Devices: Walker and Wheelchair Review of Systems 2 Review of Systems: All systems reviewed & are unremarkable except as noted in HPI & below Physical Exam 2 Physical Exam: Constitutional: No acute distress HEENT: EOMI, PERRLA Respiratory system: Decreased air entry, no wheeze, no rhonchi, positive crackles bilateral lower lobes CVS: S1-S2 positive, no murmurs or gallops, right-sided Port-A-Cath Abdomen: Soft, nontender, nondistended, positive bowel sounds x4, positive left- sided ostomy, periumbilical reducible hernia Extremities: +2 pulses bilaterally radialis/ dorsalis pedis, no cyanosis, +3 pitting edema bilateral lower extremity Neuro: Awake alert oriented x3 Psych: Normal mood and affect G/U: No Rice Skin: no rashes, warm and dry Lymphatic: no cervical or axillary lymphadenopathy Results & Data Results & Data Vital Signs (Past 12 Hours) Vital Signs Temp Pulse Pulse Resp BP BP Pulse Ox 10/03/24 17:12 138 H 26 H 92 10/03/24 17:11 120/57 L 10/03/24 17:11 120/57 L 10/03/24 17:11 120/57 L 10/03/24 16:57 84 11 L 97 10/03/24 16:57 122/87 10/03/24 16:57 122/87 10/03/24 16:57 122/87 10/03/24 16:57 122/87 10/03/24 16:51 82 14 98 10/03/24 16:50 133/62 10/03/24 16:48 80 21 95 10/03/24 16:46 136/66 10/03/24 16:46 136/66 94 10/03/24 16:40 80 14 143/71 H 94 10/03/24 16:40 143/71 H 10/03/24 16:38 80 138/70 95 10/03/24 16:30 78 14 104/77 93 10/03/24 16:25 107/69 10/03/24 16:25 107/69 10/03/24 16:18 78 14 68/49 L 98 10/03/24 16:12 88/37 L 10/03/24 16:09 71 18 95 10/03/24 16:00 72 21 72/42 L 90 10/03/24 15:46 76/24 L 10/03/24 15:42 70 10 L 100 10/03/24 15:30 72/33 L 10/03/24 15:30 71 8 L 100 10/03/24 15:24 71 13 81/44 L 97 10/03/24 15:15 72 12 81/44 L 95 10/03/24 15:04 78/43 L 10/03/24 15:04 78/43 L 10/03/24 15:00 71 14 98 10/03/24 14:46 93/37 L 10/03/24 14:42 72 14 100 10/03/24 14:30 74 20 100 10/03/24 14:18 72 17 94 10/03/24 14:03 76 19 100 10/03/24 14:03 75 10/03/24 14:00 100/53 L 10/03/24 13:57 75 15 97 10/03/24 13:33 14 10/03/24 13:31 76/45 L 10/03/24 13:29 36.4 C L 92 H 22 76/45 L 94 O2 Del Method O2 Flow Rate 10/03/24 17:12 10/03/24 17:11 10/03/24 17:11 10/03/24 17:11 10/03/24 16:57 10/03/24 16:57 10/03/24 16:57 10/03/24 16:57 10/03/24 16:57 10/03/24 16:51 10/03/24 16:50 10/03/24 16:48 Nasal Cannula 3 10/03/24 16:46 10/03/24 16:46 Nasal Cannula 3 10/03/24 16:40 Nasal Cannula 3 10/03/24 16:40 10/03/24 16:38 Nasal Cannula 3 10/03/24 16:30 10/03/24 16:25 10/03/24 16:25 10/03/24 16:18 Nasal Cannula 3 10/03/24 16:12 10/03/24 16:09 10/03/24 16:00 10/03/24 15:46 10/03/24 15:42 10/03/24 15:30 10/03/24 15:30 10/03/24 15:24 Nasal Cannula 3 10/03/24 15:15 Nasal Cannula 3 10/03/24 15:04 10/03/24 15:04 10/03/24 15:00 Nasal Cannula 3 10/03/24 14:46 10/03/24 14:42 Nasal Cannula 3 10/03/24 14:30 Nasal Cannula 3 10/03/24 14:18 Room Air 10/03/24 14:03 Nasal Cannula 3 10/03/24 14:03 10/03/24 14:00 10/03/24 13:57 Nasal Cannula 3 10/03/24 13:33 10/03/24 13:31 10/03/24 13:29 Nasal Cannula 3 Laboratory Results 10/03/24 13:16 10/03/24 13:16 Coding Level of Care Code 68907 CRITICAL CARE 1ST 30-74M Diagnoses Shock circulatory R57.9 Sepsis A41.9 Severe protein-calorie malnutrition E43 GERD (gastroesophageal reflux disease) K21.9 Osteopenia M85.80 Pleural effusion J90 Port-A-Cath in place Z95.828 History of DVT (deep vein thrombosis) Z86.[address] Z93.3 Anxiety disorder F41.9
--- NOTE | 2024-10-03 18:26 | Emergency Department Note ---
Impression & Plan Sepsis, OZIEL (acute kidney injury), Acute UTI (urinary tract infection), Anasarca ED Provider Note NAME: RAMSEY WU AGE: 68 SEX: Female INFORMANT: Patient ED PROVIDER(S): Sky Benz MD CHIEF COMPLAINT: Abnormal labs PLAN: Disposition: Admitted Outpatient prescription management: none Referral: None MEDICAL DECISION MAKING: Patient presented to the ER with abnormal labs based upon concerns from her treating physician, Dr. Montenegro. I did discuss the patient's recent treatment with him. She was found to have a Pseudomonas and methicillin sensitive staph on culture. She was not responding to Levaquin and Bactrim. She had increasing white count and renal function. Patient's blood pressure was borderline low although she notes that she typically runs low around 90 systolic. Given her anasarca fluid management was carefully administered. Patient was found to have a marked leukocytosis which has worsened up to 30,000. Renal insufficiency was noted as well. Patient did have cultures obtained. Blood pressure did drop slightly although mental status was unchanged. Patient was treated with gentle saline boluses. Blood pressure fluctuated but dropped again. CT imaging showed no evidence of renal obstruction although there was a hyperdensity noted in the collecting system. Gallstones noted without any right upper quadrant tenderness. I did treat the patient with IV Zosyn as well as daptomycin. Discussed with ED pharmacist. Culture review indicates the patient had an intermediate sensitivity to the ciprofloxacin. It is possible that the Levaquin, which was the only oral option was not fully capable of clearing her infection. Consultation was made with Dr. Armand Arnold of the [facility] service. Patient was evaluated in the ER for further management. Patient's blood pressure did not improve with additional fluids and we discussed initiation of vasopressors. He did order Levophed. We both were concerned about the patient's volume status given her anasarca. Fluid management will continue as well as vasopressor support. Care/management discussed with: ED pharmacist, hospitalist, treating physician at nursing facility Level of care consideration(s): After review of the information above and other included data, I feel the patient requires escalation of care to admission Triage Nursing notes: reviewed and agree them. Vital Signs: reviewed and remarkable for hypotension Additional History obtained from: Primary physician regarding her treatment of this Pseudomonas and methicillin sensitive UTI. Chronic Medical/Social Conditions affecting care: Breast cancer, CHF, Prior/ Outside/ External records reviewed: none Differential Diagnosis: Infection, dehydration, metabolic abnormality, hypo/hyperglycemia, electrolyte disturbance, anemia, hypoxia, cardiac sources, intracerebral event, toxicologic, neurologic, as well as other pathologies. Diagnostics, independently interpreted by me: ECG: Twelve-lead ECG reveals a sinus rhythm with first-degree block at 77 bpm. Low voltage QRS. Anterior Q waves present. No ST elevation. Cardiac Monitoring: Cardiac monitoring ordered by me: The patient was placed on continuous cardiac monitoring and observed. It revealed a sinus rhythm at 84 bpm. Medical decision rules: none Imaging studies: Chest x-ray is concerning for CHF. CT scan of the abdomen pelvis reveals Ill-defined hyperdense subcentimeter foci within the right renal collecting system of the right kidney without hydronephrosis. Findings are suggestive of renal calculi with retained contrast considered less likely. Correlate with urinalysis. Fluid overload with [id number] pleural effusions, interstitial pulmonary edema, anasarca with trace ascites. Cholelithiasis. HPI: 68 year old Female arrives for evaluation of abnormal labs. Patient's primary physician at her nursing facility, Dr. Montenegro noted that she was having difficulty with treatment of a methicillin sensitive and Pseudomonas UTI. She was on Levaquin and Bactrim. Patient had renal function that was not improving and she also had issues with increasing white blood cell count. Patient has a history of CHF as well as anasarca. Despite outpatient treatment she was worsening and he was concerned. Patient was transferred to the emergency department for further management. Pt denies LOC, headache, fevers, chills, neck pain, chest pain, breathing difficulties, nausea, vomiting, abdominal pain, back pain, melena, hematochezia, urinary symptoms, numbness, weakness, lymphadenopathy, rash, or other complaints. PAST MEDICAL HISTORY: See Below, CHF, UTI, breast cancer, sepsis PAST SURGICAL HISTORY: See Below, mastectomy, Mediport SOCIAL HISTORY: See Below, disabled HOME MEDICATIONS: See Below ALLERGIES: See Below VITALS: See Below PHYSICAL EXAMINATION: GENERAL: Awake, mildly-appearing, in no distress HENT: Normocephalic, atraumatic. Oropharynx unremarkable. EYES: Normal conjunctiva. Sclera non-icteric. NECK: Inspection normal. Non-tender. Supple. No nuchal rigidity. FROM. No masses. RESPIRATORY: Clear to auscultation. No wheezes. No rales. Normal respiratory effort. CARDIAC: Normal rate. Normal rhythm. No murmurs. No rubs. Extremities warm and well perfused. Pulses equal. No JVD. GI: Soft, non-distended. No tenderness to palpation. No rebound or guarding. No masses. RECTAL: Deferred. MUSCULOSKELETAL: Atraumatic. Chest examination reveals no tenderness. The back is symmetrical on inspection without obvious abnormality. There is no CVA tenderness to palpation. No joint edema. LOWER EXTREMITIES: Calves are equal size bilaterally and non-tender. 4+ edema. No discoloration. NEURO: Normal sensorium. No sensory deficit noted. Patient has severe weakness in the lower extremities. Bedbound SKIN: No rash or jaundice noted. PROCEDURES: none CRITICAL CARE: I have personally spent 35 minutes of critical care time in the direct management of this patient. This includes bedside care, interpretation of diagnostic studies, and testing, discussion with consultants, patient, and family members, and other required patient management activities. These minutes are in excess of all separately billable procedures. OBSERVATION NOTE: none Past Med/Surg History Problem List (Updated 10/03/24 @ 18:26 by Sky Benz MD) Anasarca (Acute) Acute UTI (urinary tract infection) (Acute) OZIEL (acute kidney injury) (Acute) Sepsis (Acute) Pleural effusion Shock circulatory Sepsis Encounter for care related to vascular access port Hypercalcemia (Acute) Anorexia Coagulopathy Anemia Severe protein-calorie malnutrition NSVT (nonsustained ventricular tachycardia) 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 Intertrigo Hypomagnesemia (Acute) High anion gap metabolic acidosis History of colon polyps GERD (gastroesophageal reflux disease) Elevated lactic acid level Preoperative cardiovascular examination Lesion of femur Benign positional vertigo Anxiety Benign hypertension Breast cancer Depression Disc degeneration, lumbar Hyperlipidemia Lung nodule Osteopenia Peripheral neuropathy Radiculopathy Restrictive lung disease Vitamin D deficiency Medical History (Updated 10/03/24 @ 18:26 by Sky Benz MD) Port-A-Cath in place (12/05/23) Insertion Access Port Internal Jugular(Right) - Shyam Cook MD, FACS Vitamin D deficiency History of DVT (deep vein thrombosis) GERD (gastroesophageal reflux disease) Colostomy in place 2018 (after diverticular perforation complications) CAD (coronary artery disease) Follows with [facility] cardio care home resident resides at [facility] History of sepsis per [facility] Record Cognitive communication deficit Dysphagia Generalized muscle weakness Personal history of transient ischemic attack (TIA), 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 deficits per [facility] Record, no further info provided Benign paroxysmal vertigo Essential (primary) hypertension Anxiety disorder Major depressive disorder Other abnormalities of gait and mobility Anorexia Unspecified severe protein-calorie malnutrition Polyneuropathy Anemia CHF (congestive heart failure) Breast cancer metastasized to bone hx chemo, radiation + surgery Difficult intravenous access Left leg DVT Taking Eliquis Diverticular disease PVC (premature ventricular contraction) h/o PAC (premature atrial contraction) Hx Cardiomyopathy Follows with [facility] cardio LV dysfunction Lumbar disc herniation with radiculopathy Diabetes Surgical History (Updated 12/05/23 @ 05:57 by Courtney Treadwell RN) History of bowel resection Ostomy placed History of total left hip replacement per [facility] record History of colonoscopy History of humerus fracture (03/26/20) with open reduction and internal fixation due to pathological fracture (Dr. Gillette) History of surgery for malignant neoplasm 2017 removal of substernal mass + radiation History of intestinal surgery History of cardiac cath 2017- no stents History of hysterectomy History of lumbar laminectomy H/O bilateral mastectomy limb restriction LUE per [facility] Record Family History Mother Breast cancer Sister Breast cancer Hypertension Father Myocardial infarction Prostate cancer Heart disease Other Cancer Denies family history of Ovarian cancer Colorectal cancer Social History (Updated 11/28/23 @ 16:37 by Lakisha Salvador RN) Smoking Status: Former smoker Tobacco Type: Cigarettes Age Started Using Tobacco: 15; Second Hand Exposure: No; Do You Dip or Chew Tobacco: No; Hx Alcohol Use: No Hx Substance Use: No Preferred Language: Austrian Communication Ability: Effective Visual Impairment: No Limitations Hearing Ability: Normal Client Experience Manager Required: No Beliefs That Will Affect Care: None marital status: Single Current Living Situation: Halfway Current Living Situation Comment: [facility] current occupational status: retired How many Children do You have: 0 Feels Safe at Home: Yes Childhood Exposure to Second-Hand Smoke: No Diet: regular caffeine: Yes during the past year weight has: increased > 10 lbs Dental Care, Regularly: Yes Physical Activity Frequency: Does not Exercise Seatbelt Use: never Sunscreen Use: Yes Assistive Devices: Walker and Wheelchair Allergies Allergies Allergy/AdvReac Type Severity Reaction Status Date / Time aspirin Allergy Intermediate hives Verified 12/14/23 12:11 ibuprofen Allergy Intermediate hives Verified 12/14/23 12:11 tamoxifen AdvReac Intermediate temporary Verified 12/14/23 12:11 left eye vision loss Home Meds Home Medications Medication Instructions Recorded Confirmed carvedilol 3.125 mg tablet 3.125 mg PO BIDM 04/05/23 10/03/24 gabapentin 300 mg capsule 300 mg PO QID 04/05/23 10/03/24 loperamide 2 mg tablet (Imodium 2 mg PO Q4H PRN Diarrhea 04/05/23 10/03/24 A-D) magnesium oxide 400 mg (241.3 mg 800 mg PO BIDM 04/05/23 10/03/24 magnesium) tablet eucalyptus-menthol oral mucosal 1 esteban mucous membrane UD PRN Cough 11/30/23 10/03/24 lozenge ferrous sulfate 325 mg (65 mg 325 mg PO QAM 11/30/23 10/03/24 iron) tablet folic acid 1 mg tablet 1 mg PO QAM 11/30/23 10/03/24 apixaban 2.5 mg tablet (Eliquis) 2.5 mg PO BID 02/28/24 10/03/24 atorvastatin 10 mg tablet 10 mg PO DAILY 02/28/24 10/03/24 magnesium hydroxide 400 mg/5 mL 30 ml PO DAILY PRN Constipation 02/28/24 10/03/24 oral suspension (Milk of Magnesia) methyl salicylate-menthol topical 1 applic topical BID PRN Pain 02/28/24 10/03/24 cream sodium phosphates 19 gram-7 118 ml OH DAILY PRN Constipation 02/28/24 10/03/24 gram/118 mL enema (Fleet Enema) Calcium + D 1 tab PO QID 10/03/24 10/03/24 bisacodyl 10 mg rectal suppository 10 mg OH DAILY PRN Constipation 10/03/24 10/03/24 (Dulcolax (bisacodyl)) buspirone 10 mg tablet 10 mg PO TID PRN anxiety 10/03/24 10/03/24 diclofenac sodium 1 % topical gel 2 g topical QID 10/03/24 10/03/24 fentanyl 37.5 mcg/hour transdermal 1 patch topical .Q 3 DAYS 10/03/24 10/03/24 patch heparin lock flush (porcine) 5 ml IV DAILY 10/03/24 10/03/24 levofloxacin 500 mg tablet 500 mg PO .DAILY FOR 7 DAYS 10/03/24 10/03/24 oxycodone 10 mg tablet 10 mg PO Q6H PRN Pain, Severe 10/03/24 10/03/24 oxycodone 5 mg capsule 5 mg PO Q6H PRN Pain, Moderate 10/03/24 10/03/24 paroxetine HCl 30 mg tablet 30 mg PO DAILY 10/03/24 10/03/24 sulfamethoxazole 400 1 tab PO BID 10/03/24 10/03/24 mg-trimethoprim 80 mg tablet Previous Rx's Medication Instructions Recorded Wheelchair (Manual) #1 ea 07/14/22 omeprazole 20 mg capsule,delayed 20 mg PO QAM #90 caps 10/30/22 release colostomy bags #15 ea 07/27/23 Results & Data (ED) Vital Signs Vital Signs - 24 hr 10/03/24 13:29 10/03/24 13:31 10/03/24 13:33 Temperature 36.4 C L Temperature Source Oral Pulse Rate 92 H Pulse Rate [Bilateral Apical] Pulse Rate from SpO2 Sensor Respiratory Rate 22 14 Respiratory Effort / Characteristics Non-Labored Spontaneous Respiratory Depth Normal Respiratory Pattern Regular Blood Pressure 76/45 L 76/45 L Blood Pressure [Right Arm] Blood Pressure Mean 55 56 Blood Pressure Mean [Right Arm] Blood Pressure Position [Right Arm] Pulse Oximetry 94 Oxygen Delivery Method Nasal Cannula Oxygen Flow Rate 3 Sepsis Recent Fever Within 48 Hours No Sepsis New/Unexplained Change in Mental Status No Sepsis Action Taken by Nursing Physician Notified 10/03/24 13:57 10/03/24 14:00 10/03/24 14:03 Temperature Temperature Source Pulse Rate 75 75 Pulse Rate [Bilateral Apical] Pulse Rate from SpO2 Sensor 76 Respiratory Rate 15 Respiratory Effort / Characteristics Respiratory Depth Respiratory Pattern Blood Pressure 100/53 L Blood Pressure [Right Arm] Blood Pressure Mean 65 Blood Pressure Mean [Right Arm] Blood Pressure Position [Right Arm] Pulse Oximetry 97 Oxygen Delivery Method Nasal Cannula Oxygen Flow Rate 3 Sepsis Recent Fever Within 48 Hours Sepsis New/Unexplained Change in Mental Status Sepsis Action Taken by Nursing 10/03/24 14:03 10/03/24 14:18 10/03/24 14:30 Temperature Temperature Source Pulse Rate 76 72 74 Pulse Rate [Bilateral Apical] Pulse Rate from SpO2 Sensor 74 72 73 Respiratory Rate 19 17 20 Respiratory Effort / Characteristics Respiratory Depth Respiratory Pattern Blood Pressure Blood Pressure [Right Arm] Blood Pressure Mean Blood Pressure Mean [Right Arm] Blood Pressure Position [Right Arm] Pulse Oximetry 100 94 100 Oxygen Delivery Method Nasal Cannula Room Air Nasal Cannula Oxygen Flow Rate 3 3 Sepsis Recent Fever Within 48 Hours Sepsis New/Unexplained Change in Mental Status Sepsis Action Taken by Nursing 10/03/24 14:42 10/03/24 14:46 10/03/24 15:00 Temperature Temperature Source Pulse Rate 72 71 Pulse Rate [Bilateral Apical] Pulse Rate from SpO2 Sensor 71 70 Respiratory Rate 14 14 Respiratory Effort / Characteristics Respiratory Depth Respiratory Pattern Blood Pressure 93/37 L Blood Pressure [Right Arm] Blood Pressure Mean 60 Blood Pressure Mean [Right Arm] Blood Pressure Position [Right Arm] Pulse Oximetry 100 98 Oxygen Delivery Method Nasal Cannula Nasal Cannula Oxygen Flow Rate 3 3 Sepsis Recent Fever Within 48 Hours Sepsis New/Unexplained Change in Mental Status Sepsis Action Taken by Nursing 10/03/24 15:04 10/03/24 15:04 10/03/24 15:15 Temperature Temperature Source Pulse Rate Pulse Rate [Bilateral Apical] 72 Pulse Rate from SpO2 Sensor Respiratory Rate 12 Respiratory Effort / Characteristics Non-Labored Spontaneous Respiratory Depth Normal Respiratory Pattern Regular Blood Pressure 78/43 L 78/43 L Blood Pressure [Right Arm] 81/44 L Blood Pressure Mean 62 62 Blood Pressure Mean [Right Arm] 56 Blood Pressure Position [Right Arm] Lying Pulse Oximetry 95 Oxygen Delivery Method Nasal Cannula Oxygen Flow Rate 3 Sepsis Recent Fever Within 48 Hours Sepsis New/Unexplained Change in Mental Status Sepsis Action Taken by Nursing 10/03/24 15:24 10/03/24 15:30 10/03/24 15:30 Temperature Temperature Source Pulse Rate 71 71 Pulse Rate [Bilateral Apical] Pulse Rate from SpO2 Sensor 71 67 Respiratory Rate 13 8 L Respiratory Effort / Characteristics Respiratory Depth Respiratory Pattern Blood Pressure 81/44 L 72/33 L Blood Pressure [Right Arm] Blood Pressure Mean 56 55 Blood Pressure Mean [Right Arm] Blood Pressure Position [Right Arm] Pulse Oximetry 97 100 Oxygen Delivery Method Nasal Cannula Oxygen Flow Rate 3 Sepsis Recent Fever Within 48 Hours Sepsis New/Unexplained Change in Mental Status Sepsis Action Taken by Nursing 10/03/24 15:42 10/03/24 15:46 10/03/24 16:00 Temperature Temperature Source Pulse Rate 70 72 Pulse Rate [Bilateral Apical] Pulse Rate from SpO2 Sensor 70 72 Respiratory Rate 10 L 21 Respiratory Effort / Characteristics Respiratory Depth Respiratory Pattern Blood Pressure 76/24 L 72/42 L Blood Pressure [Right Arm] Blood Pressure Mean 33 52 Blood Pressure Mean [Right Arm] Blood Pressure Position [Right Arm] Pulse Oximetry 100 90 Oxygen Delivery Method Oxygen Flow Rate Sepsis Recent Fever Within 48 Hours Sepsis New/Unexplained Change in Mental Status Sepsis Action Taken by Nursing 10/03/24 16:09 10/03/24 16:12 10/03/24 16:18 Temperature Temperature Source Pulse Rate 71 78 Pulse Rate [Bilateral Apical] Pulse Rate from SpO2 Sensor 72 72 Respiratory Rate 18 14 Respiratory Effort / Characteristics Respiratory Depth Respiratory Pattern Blood Pressure 88/37 L 68/49 L Blood Pressure [Right Arm] Blood Pressure Mean 56 55 Blood Pressure Mean [Right Arm] Blood Pressure Position [Right Arm] Pulse Oximetry 95 98 Oxygen Delivery Method Nasal Cannula Oxygen Flow Rate 3 Sepsis Recent Fever Within 48 Hours Sepsis New/Unexplained Change in Mental Status Sepsis Action Taken by Nursing Laboratory Data 10/03/24 13:16 10/03/24 13:16 Lab Results 10/03/24 10/03/24 10/03/24 Range/Units 13:16 14:16 15:07 WBC 30.69 H* (4.8-10.8) K/ul RBC 2.52 L (4.20-5.40) M/uL Hgb 8.4 L (12.0-16.0) g/dl Hct 27.2 L (37.0-47.0) % MCV 107.9 H (80.0-100.0) fL MCH 33.3 (25.0-34.0) pg MCHC 30.9 L (32.0-36.0) g/dL RDW Std Deviation 67.8 H (36.4-46.3) fL RDW Coeff of Bradford 17.8 H (11.5-14.5) % Plt Count 248 (130-400) K/uL MPV 9.5 (9.4-12.4) fL Immature Gran % (Auto) 5.9 % Neut % (Auto) 82.1 % Lymph % (Auto) 7.1 % [place] % (Auto) 3.0 % Eos % (Auto) 1.1 % Baso % (Auto) 0.8 % Neut # (Auto) 25.18 H (1.40-6.50) K/uL Lymph # (Auto) 2.17 (1.20-3.40) K/uL [place] # (Auto) 0.92 H (0.11-0.59) K/uL Eos # (Auto) 0.35 (0.00-0.50) K/uL Baso # (Auto) 0.25 H (0.00-0.20) K/uL Immature Gran # (Auto) 1.82 H (0.01-0.20) K/uL Absolute Nucleated RBC 0.02 (0.00-0.12) K/uL Nucleated RBC % (auto) 0.1 % Toxic Granulation 1+ Polychromasia 1+ Macrocytosis Present Ovalocytes 1+ PT 16.1 H (9.0-12.0) Seconds INR 1.5 H (0.9-1.1) Sodium 134 L (136-145) mmol/L Potassium 4.6 (3.5-5.1) mmol/L Chloride 103 (98-107) mmol/L Carbon Dioxide 26 (21-32) mmol/L Anion Gap 5 (3-11) BUN 34 H (6-23) mg/dl Creatinine 2.16 H (0.6-1.2) mg/dl Est Cr Clr Drug Dosing 30.7 ml/min eGFR 24.20 BUN/Creatinine Ratio 15.7 (10-20) Glucose 130 H (70-99(Fasting)) mg/dl Lactate 1.4 (0.4-2.0) mmol/L Calcium 8.2 L (8.6-10.3) mg/dl Magnesium 2.3 (1.7-2.4) mg/dl Total Bilirubin 0.5 (0.2-1.0) mg/dl Direct Bilirubin 0.2 (0-0.2) mg/dl AST 18 (13-39) U/L ALT 5 L (7-52) U/L Alkaline Phosphatase 200 H (34-104) U/L Troponin I High Sens 54.2 H* 121.6 H* D (0-14) pg/ml B-Natriuretic Peptide 420 H (0-100) pg/ml Total Protein 5.3 L (6.0-8.3) gm/dl Albumin 2.2 L (3.4-5.0) gm/dl Procalcitonin 0.58 H (0-0.5) ng/ml Random Cortisol 11.68 mcg/dl Blood Type A Positive Blood Type Recheck A Positive Antibody Screen NEGATIVE Administered Medications Sodium Chloride (Nss) 1,000 mls @ 125 mls/hr IV .Q8H TUNDE Stop: 10/06/24 13:59 Last Admin: 10/03/24 14:35 Dose: 125 mls/hr Documented By: CAP Norepinephrine Bitartrate (Levophed/D5w) 4 mg in 250 mls @ 22.838 mls/hr IV .[id number] TUNDE; Protocol Stop: 11/02/24 15:59 Last Titration: 10/03/24 16:55 Dose: 0.05 mcg/kg/min, 22.8 mls/hr Documented By: TUNDE Co-signed By: HALINA Admin: 10/03/24 16:17 Dose: 0.05 mcg/kg/min, 22.8 mls/hr Documented By: HALINA Co-signed By: HARI Discontinued Medications Sodium Chloride (Nss) 500 mls @ 999 mls/hr IV .Q31M ONE Stop: 10/03/24 14:15 Last Infusion: 10/03/24 14:35 Dose: Infused Documented By: Admin: 10/03/24 13:59 Dose: 999 mls/hr Documented By: CAP Piperacillin Sod/Tazobactam Sod (Zosyn) 4.5 gm in 100 mls @ 200 mls/hr IV NOW ONE; Protocol Stop: 10/03/24 14:15 Last Infusion: 10/03/24 15:15 Dose: Infused Documented By: Admin: 10/03/24 14:35 Dose: 200 mls/hr Documented By: CAP Daptomycin 775 mg/ Syringe 15.5 mls @ 7.75 mls/min IV NOW ONE; Protocol Stop: 10/03/24 13:58 Last Admin: 10/03/24 14:35 Dose: 7.75 mls/min Documented By: CAP Sodium Chloride (Nss) 500 mls @ 999 mls/hr IV .Q31M ONE Stop: 10/03/24 15:44 Last Infusion: 10/03/24 16:19 Dose: Infused Documented By: Admin: 10/03/24 15:24 Dose: 999 mls/hr Documented By: HALINA Imaging Data Radiologist's Impression: Abdomen/Pelvis CT 10/03/24 13:[address] WITHOUT CONTRAST CT DOSE: 1315.52 mGy.cm HISTORY: Acute kidney injury with sepsis OZIEL, sepsis TECHNIQUE: Multiaxial CT images of the abdomen and pelvis were performed without contrast. A dose lowering technique was utilized adhering to the principles of ALARA. COMPARISON STUDY: 07/22/2024 FINDINGS: Decreased attenuation of the cardiac blood pool suggestive of anemia. Increased size of the pleural effusions compared to the prior study which are now small to moderate. Dependent bibasilar consolidation favors atelectasis. Intralobular septal thickening also noted. No pneumatosis or pneumoperitoneum. Spleen is mildly enlarged, 13.8 cm. Moderate pancreatic atrophy. Adrenal glands are within normal limits. Hepatic steatosis without mass or evidence of cirrhosis. Cholelithiasis without CT evidence of acute cholecystitis. Mild cortical thinning of the kidneys. Ill-defined hyperdense foci noted within the right renal collecting system which involves the superior midpole calyces and renal pelvis. No hydronephrosis. Decompressed bladder. Pelvic structures are not well seen secondary to streak artifact from left hip arthroplasty. Atherosclerosis of the aorta. No bowel obstruction or bowel wall thickening. Trace ascites with anasarca. Left lower quadrant ostomy. Numerous fat and bowel- containing abdominal wall hernias appear similar to prior. Multifocal osseous metastasis redemonstrated with mixed lytic and sclerotic foci. There is no significant change compared to 07/22/2024. IMPRESSION: 1. Ill-defined hyperdense subcentimeter foci within the right renal collecting system of the right kidney without hydronephrosis. Findings are suggestive of renal calculi with retained contrast considered less likely. Correlate with urinalysis. 2. Fluid overload with [id number] pleural effusions, interstitial pulmonary edema, anasarca with trace ascites. 3. Cholelithiasis. 4. Numerous bowel containing abdominal wall hernias redemonstrated without obstruction. 5. Stable appearance of the extensive multifocal osseous metastatic disease. ACT 112: Negative or not required by law. The above report was generated using voice recognition software. It may contain grammatical, syntax or spelling errors. Electronically signed by: Dayne Gordon M.D. 10/03/2024 3:17 PM Chest X-Ray 10/03/24 13:09 XR chest 1V portable CLINICAL HISTORY: Sepsis. COMPARISON STUDY: Chest radiograph December 05, 2023. Chest CT July 22, 2024. FINDINGS: Numerous sclerotic skeletal lesions are again noted. Cardiomegaly is unchanged. Mediastinal contours are stable. There is no pneumothorax. There are small bilateral pleural effusions. Interstitial thickening persists. There are hazy bibasilar opacities. IMPRESSION: 1. Cardiomegaly. Stable interstitial thickening suggestive of mild pulmonary edema. 2. Small bilateral pleural effusions. 3. Hazy bibasilar opacities which favor atelectasis although an infectious process could appear similar. ACT 112: Negative or not required by law. Electronically signed by: Gabe Ramirez M.D. 10/03/2024 1:39 PM Discharge Plan Visit Data Chief Complaint: Illness ED Provider: Sky Benz Discharge Problem: Sepsis, OZIEL (acute kidney injury), Acute UTI (urinary tract infection), Anasarca Patient Disposition: Admitted As Inpatient Condition: Critical Discharge Instructions Interventions: ED Discharge Assessment Last Done: 10/03/24 17:22
[2024-10-03] MEDS: CEFEPIME 2000MG 2,000 MG/20 ML SYR IV SCH (18:27)
[2024-10-03] MEDS: HYDROCORTISONE SOD 100 MG in SYRINGE 0 ML IV ONE (19:28)
[2024-10-03] MEDS: LACTATED RINGER'S 1,000 ML IV SCH (19:48)
[2024-10-03 19:53] LABS: Appearance Urine Turbid (Clear); Bacteria Urine Automated None Seen (None Seen); Epithelial Cell Urine Auto 0-2 /hpf (0-2); Glucose Urine UA Negative (Negative); WBC Urine Automated >50 /hpf (0-5)
[2024-10-03] MEDS: HEPARIN 25000 UNIT/500 ML D5W 25,000 UNITS/500 ML BAG IV SCH (19:58)
[2024-10-03] MEDS: HEPARIN 25000 UNIT/500 ML D5W IV ONE (19:58)
[2024-10-03] MEDS: Heparin IV Adult Wt-Based Standard *NO* INITIAL Bolus Protocol IV ONE (20:40)
[2024-10-03] MEDS: GABAPENTIN 300 MG CAP PO SCH (20:40)
[2024-10-04] MEDS: ALBUMIN 25% 25 GM/100 ML VIAL IV ONE (02:01)
[2024-10-04] MEDS: HYDROCORTISONE SOD 50 MG in SYRINGE 0 ML IV SCH (02:02)
[2024-10-04 02:35] LABS: ANTI-Xa, UFH(UnfractionatedHep > 1.50 IU/ml (0.3-0.7)
[2024-10-04] MEDS ORDERED: HEPARIN 100 UNIT/ML 5ML FLUSH FLUSH PRN (03:20)
[2024-10-04 05:04] LABS: Hematocrit (blood only) 30.0 % (37.0-47.0); Hemoglobin 9.4 g/dl (12.0-16.0); Mean Corpuscular Hemoglobin 33.5 pg (25.0-34.0); Mean Corpuscular Volume 106.8 fL (80.0-100.0); Platelet Count 322 K/uL (130-400); RDW Standard Deviation 67.9 fL (36.4-46.3); Red Blood Count 2.81 M/uL (4.20-5.40); White Blood Count 59.68 K/ul (4.8-10.8)
[2024-10-04 05:10] LABS: Anion Gap 6.0 (3-11); Blood Urea Nitrogen 32.0 mg/dl (6-23); Calcium 8.5 mg/dl (8.6-10.3); Carbon Dioxide 23.0 mmol/L (21-32); Chloride 103.0 mmol/L (98-107); Creatinine Clr Calc Pharmacy 36.8 ml/min; Glucose 180.0 mg/dl (70-99(Fasting)); Magnesium 2.2 mg/dl (1.7-2.4); Potassium 5.0 mmol/L (3.5-5.1); Sodium 132.0 mmol/L (136-145)
[2024-10-04 05:15] LABS: Immature Granulocytes # (auto) 4.25 K/uL (0.01-0.20); Immature Granulocytes % (auto) 7.1 %
--- NOTE | 2024-10-04 05:40 | Electrocardiogram Report ---
Test Reason : Blood Pressure : */* mmHG Vent. Rate : 77 BPM Atrial Rate : 77 BPM P-R Int : 210 ms QRS Dur : 76 ms QT Int : 406 ms P-R-T Axes : * 3 -10 degrees QTcB Int : 459 ms Sinus rhythm with 1st degree A-V block Low voltage QRS Cannot rule out Anterior infarct (cited on or before 06-Nov-2019) Nonspecific T wave abnormality Abnormal ECG When compared with ECG of 05-Apr-2023 12:39, Premature atrial complexes are no longer Present Nonspecific T wave abnormality, worse in Inferior leads Nonspecific T wave abnormality, worse in Anterior leads QT has lengthened Confirmed by James Benites ([id number]) on 10/04/2024 5:40:12 AM Referred By: REFERRED SELF Confirmed By: James Benites
[2024-10-04] MEDS ORDERED: Nursing to Pharmacy Communication SCH (06:15)
[2024-10-04 06:27] LABS: Partial Thromboplastin Time 59 Seconds (21-31)
--- NOTE | 2024-10-04 06:27 | Communication Note ---
Date of Service: October 04, 2024 Patient has been waxing and waning symptoms through the night of dyspnea and anxiety, She has also had decrease in urine output despite volume and adequate supported blood pressure. Nursing staff had sat with her for the past few hours helping keep her comfortable as well as provide emotional support. Patient's sister Tg also joined them at the bedside. Once sister arrived and spent some time with Yamel, I went in and spoke with Yamel regarding what her current goals of care would be moving forward to include, NIPPV, blood draws, and or vasopressor medications. We discussed that currently she is able to have this discussion with us and help guide her care so we are supporting her needs and wishes. We did discuss that some of her labs are improving but she is also showing signs of multiorgan failure, we also discussed that further crystalloid challenges may make her breathing more difficulty in relation to her effusions, and that draining these at this time is also not likely to occur as her bleeding risk is increased as she is just 24 hours for Eliquis Washout. Yamel did state that she was not ready to but did not want to continue with blood draws and medications to include her heparin and vasopressors. I left the patient to discuss this with her sister. Following their discussion, patient did not want to continue with the above (blood draws, Heparin, Vasopressors) and did not want NIPPV for dyspnea, hypoxia or support. She would like to continue with antibiotics and helpful medications, but no further escalation of care. She would like to be comfortable if she would progress. I have discontinued the above orders and Levophed has been discontinued. I will add Roxanol oral solution for dyspnea if needed. Further orders as clinical condition presents. Jose SNIDER ([facility]-)
[2024-10-04 06:38] LABS: ANTI-Xa, UFH(UnfractionatedHep 0.82 IU/ml (0.3-0.7)
[2024-10-04] MEDS: MoRPHine SULFATE 10 MG/0.5 ML UDP PO PRN (07:15)
[2024-10-04] MEDS: FOLIC ACID 1 MG TAB PO SCH (07:16)
--- NOTE | 2024-10-04 07:53 | Critical Care Progress Note ---
Date of Service October 04, 2024 Assessment & Plan (1) Shock circulatory: (2) Sepsis: (3) Severe protein-calorie malnutrition: (4) GERD (gastroesophageal reflux disease): (5) Osteopenia: (6) Pleural effusion: (7) Port-A-Cath in place: (8) History of DVT (deep vein thrombosis): (9) Colostomy in place: (10) Anxiety disorder: Plan Reason Critically Ill: 68-year-old female being admitted to the hospital because of urinary sepsis. Was found to be hypotensive in the ED, sent to ICU for further care Past medical history: Breast cancer s/p mastectomy 1994, prophylactic right- sided total mastectomy, PE 2015 on Eliquis, skeletal metastatic disease in 2023 Neuro - [facility]: Negative --Anxiety/depression On paroxetine and olanzapine at home Cardiac - 2D echo 08/26/2024: EF 60-65%, mild to moderate TR, RVSP 40-50 mmHg, mild to moderate MR, RV moderately dilated with normal function --Shock Likely septic Continue vasopressor support to keep MAP greater than 65 Random cortisol 11.68, start the patient on empiric corticosteroids --Elevated troponin Likely type II GA Continue to trend Respiratory - -- Acute hypoxic respiratory failure Likely secondary to pleural effusion O2 supplementation to keep oxygen saturation between 90-92% BiPAP nightly and as needed shortness of breath --Bilateral pleural effusion Likely from HFpEF BNP 420 GI - -- Chronically elevated alk phos Likely secondary to osseous metastasis Continue to monitor -- Protein calorie malnutrition with albumin of 2.2 RENAL/LYTES - -- CKD Monitor BUNs/creatinine Avoid nephrotoxic medication ENDO - -- ICU hypoglycemia protocol HEME - --Macrocytic anemia Monitor H&H -- History of breast cancer metastatic ER/SC positive HER2 negative --History of DVT On Eliquis, last dose at home morning of 10/03 ID - -- UTI sepsis Urine culture growing MSSA and Pseudomonas which is sensitive to cephalosporins and penicillin Patient was discharged home on levofloxacin with intermediate coverage to Pseudomonas Procalcitonin --Prophylaxis VTE: Eliquis GI: Pantoprazole Lines: Right-sided Port-A-Cath, peripheral, Rice Diet: Clear liquid Plan: In/out: +3 L, urine output 316 WBC count still going up. The patient's urine output is not improving. Patient has decided to not to be aggressive and rather be more comfortable She will still like to continue with antibiotics as well as hydrocortisone. Keep the patient comfortable. I will change the antibiotics from cefepime to Zosyn as it would have better coverage for MSSA. No clear need for daptomycin right now. Will discontinue it. I spent more than 50 minutes looking in the chart, images, discussing the plan of care with the patient, RN as well as primary team This includes time spent evaluating patient, direct bedside care, chart review, placing orders, interpretation of diagnostic studies, discussion with consultants, patient, and family members, as well as other required patient management activities. This time is exclusive of all separately billable procedures, and teaching time and separate from and in addition to any other critical care service time. Please note the above document was generated using voice recognition software. It may contain grammatical, syntax or spelling errors. Admission and Anticipated Discharge Date Admission Date: October 03, 2024 Subjective Patient seen and examined at bedside. No acute distress Patient had gotten opioids for comfort just prior to me entering the room Her systolic blood pressure was in the high 70s. She was resting comfortably Overnight patient decided that she would not like to continue with vasopressors. No nausea or vomiting Denied any abdominal pain Review of Systems 2 Review of Systems: All systems reviewed & are unremarkable except as noted in Subjective Physical Exam 2 Physical Exam: Constitutional: No acute distress HEENT: EOMI, PERRLA Respiratory system: Decreased air entry, no wheeze, no rhonchi, positive crackles bilateral lower lobes CVS: S1-S2 positive, no murmurs or gallops, right-sided Port-A-Cath Abdomen: Soft, nontender, nondistended, positive bowel sounds x4, positive left- sided ostomy, periumbilical reducible hernia Extremities: +2 pulses bilaterally radialis/ dorsalis pedis, no cyanosis, +3 pitting edema bilateral lower extremity Neuro: Awake alert oriented x3 Psych: Normal mood and affect G/U: Positive Rice Skin: no rashes, warm and dry Lymphatic: no cervical or axillary lymphadenopathy Results & Data Results & Data Vital Signs (Past 12 Hours) Vital Signs Temp Pulse Resp BP Pulse Ox O2 Del Method O2 Flow Rate 10/04/24 04:47 93/59 L 10/04/24 04:45 37.4 C 104 H 14 92 10/04/24 04:36 37.4 C 102 H 18 90 10/04/24 04:32 103/68 10/04/24 04:30 37.4 C 108 H 14 91 10/04/24 04:27 37.4 C 108 H 20 91 10/04/24 04:24 37.4 C 108 H 18 92 10/04/24 04:17 100/64 10/04/24 04:15 37.4 C 108 H 17 92 10/04/24 04:02 99/67 L 10/04/24 04:00 37.4 C 109 H 14 92 10/04/24 03:48 37.3 C 106 H 14 89 L 10/04/24 03:47 101/60 10/04/24 03:24 37.3 C 105 H 16 90 10/04/24 03:17 100/64 10/04/24 03:09 37.3 C 103 H 19 91 10/04/24 02:54 37.3 C 101 H 14 91 10/04/24 02:47 79/67 L 10/04/24 02:42 37.3 C 100 H 19 97 10/04/24 02:32 93/66 L 10/04/24 02:30 37.3 C 109 H 15 95 10/04/24 02:24 37.3 C 98 H 14 94 10/04/24 02:17 96/61 L 10/04/24 02:15 37.3 C 101 H 20 95 10/04/24 02:00 94/64 L 10/04/24 01:57 37.3 C 20 10/04/24 01:54 37.3 C 19 10/04/24 01:51 37.3 C 16 10/04/24 01:45 37.3 C 104 H 19 10/04/24 01:33 37.3 C 10/04/24 01:32 114/74 10/04/24 01:27 37.2 C 102 H 11 L 93 10/04/24 01:21 37.2 C 104 H 12 93 10/04/24 01:17 112/72 10/04/24 01:03 37.1 C 94 H 19 93 10/04/24 01:02 113/71 10/04/24 01:00 37.1 C 95 H 12 94 10/04/24 00:57 37.1 C 96 H 12 93 10/04/24 00:48 37.2 C 98 H 14 94 10/04/24 00:47 114/85 10/04/24 00:42 37.2 C 93 H 16 93 10/04/24 00:32 104/55 L 10/04/24 00:02 90 10/03/24 22:39 95 Oxymask 3 10/03/24 22:12 37.2 C 94 H 15 96 10/03/24 22:03 37.2 C 9 L 96 10/03/24 22:02 101/63 10/03/24 21:47 93/77 L 10/03/24 21:45 37.3 C 94 H 12 96 10/03/24 21:32 108/67 10/03/24 21:30 37.3 C 83 10 L 98 10/03/24 21:17 112/54 L 10/03/24 21:02 94/78 L 10/03/24 20:57 37.1 C 88 11 L 99 10/03/24 20:33 37.1 C 95 H 24 98 10/03/24 20:33 111/68 10/03/24 20:23 Oxymask 9 10/03/24 20:17 95/61 L 10/03/24 20:15 37.1 C 90 21 98 10/03/24 20:06 37.1 C 93 H 15 93 10/03/24 20:02 85/58 L 10/03/24 19:57 37.0 C 96 H 13 95 10/03/24 19:54 37.0 C 97 H 18 96 10/03/24 19:47 91/60 L 10/03/24 19:42 101 H 14 97 Laboratory Results 10/04/24 04:40 10/04/24 04:40 Coding Level of Care Code 29811 SUB INP/OBS CARE 3/50MIN Diagnoses Shock circulatory R57.9 Sepsis A41.9 Severe protein-calorie malnutrition E43 GERD (gastroesophageal reflux disease) K21.9 Osteopenia M85.80 Pleural effusion J90 Port-A-Cath in place Z95.828 History of DVT (deep vein thrombosis) Z86.[address] Z93.3 Anxiety disorder F41.9
--- NOTE | 2024-10-04 08:09 | Hospitalist Progress Note ---
Date of Service October 04, 2024 Assessment & Plan (1) Sepsis: Plan: BACK CLOSER - See ACP Note 10/04 for further goals discussion - Does not wish to take PO meds, would like to d/c non-symptom oriented medications with the exception of antibiotics and steroids today and tomorrow, and no improvement or contribution to her comfort then also discontinue these tomorrow/sunday as well - Roxanol for dyspnea/pain if able to tolerate p.o., otherwise may use IV morphine - Ativan for anxiety Dyspnea/anxiety was inadequately controlled on morning visit, improved on afternoon revisit - Discontinue all labs, discontinue invasive monitoring Glycopyrrolate on-call if needed Will update patient's sister Tg this evening, daytime call deferred at Yamel's request Sepsis, UTI UA infected appearing. Recent UCx with MSSA and Pseudomonas aeruginosa. Pseudomonas was a ciprofloxacin intermediate sensitivity. Initially on cipro, when sensitivities returned --> switched to levo/bactrim renally dosed 09/29. CTA/P: Right subcentimeter foci possible renal calculi with retained contrast less likely, no signs of hydro. Small to moderate pleural effusions, interstitial pulmonary edema anasarca and trace ascites is seen. Extensive multifocal osseous disease. Numerous abdominal wall hernias remonstrated without obstruction. Cholelithiasis without cholecystitis. CXR: Cardiomegaly. Mild pulmonary edema. Bilateral pleural effusions. Hazy bibasilar opacities Leukocytosis of 30, elevated procalcitonin, afebrile on admit Hypoxia with sepsis however given CT and evidence of volume overload with history of HFpEF without recent diuretics concerning for combined pulmonary edema and increased oxygenation with persistent hypotension worsening to 60s/40s MAP55 on reassessment --> fluids running (1.1L in at time of assessment) --> Levophed ordered goal MAP 65. ICU consulted. Patient receives dex pretreatment with chemo infusions around every 3 weeks. Was next due next Sunday. Cortisol relatively low consistent with AI, and hydrocortisone was continued. Cefepime adjusted was continued Overnight 10/04 in the ICU did have a goals of care discussion with overnight VENANCIO. She did not wish to continue blood draws, medications including heparin/vasopressors at that time. Current condition and evidence of multisystem organ dysfunction was discussed. She did not want noninvasive positive pressure ventilation for dyspnea, hypoxia, support. She wanted to continue antibiotics and any other helpful medications without further escalation of care at that time. Consistent with these wishes Levophed was discontinued, oral Roxanol was added for dyspnea. Antibiotics were transitioned to Zosyn for improved MSSA coverage per discussion with ICU/pharmacy. Steroids continued every 6 IV at this time. Heart failure with normalized EF Previously with nonischemic cardiomyopathy related to cancer treatments, at that time reduced ejection fraction, subsequently normalized since 2021 Last echo 05/2024 with LVSF normal, moderately dilated RV, borderline MV, moderate TR No chest pain. Troponin uptrending. Transitioned to BACK CLOSER Metastatic breast cancer ER/NM positive HER2/eddie negative breast cancer with mets to bone. C/B lower extremity DVT 02/2021 on Eliquis Most recently on cycle #22 of Enhertu treatment. Steroid pretreatment before these. Last treatment was 2-3 weeks ago . Was previously on Xgeva however this was held History of DVT/PE Anticoagulation held with transition to BACK CLOSER Ostomy Status - 2/2 Diverticular perforation ~6 years ago - Ostomy intact, no change in output Admission and Anticipated Discharge Date Admission Date: October 03, 2024 Subjective Seen at the bedside. Fatigued appearing. Extensive care discussion as documented in separate ACP note. She reports she does feel short of breath, and also separately feels anxious about her condition. Would like treatment if available for these. On afternoon reassessment she is much more comfortable following a dose of Ativan which she feels worked very well for her anxiety, and notes that the Roxanol worked well for her shortness of breath. Tired and would like to rest but expresses appreciation of care at time of revisit. Physical Exam Physical Exam: General: Somnolent, awakens easily with linear thought process. Fatigued, frail appearing HEENT: Atraumatic, normocephalic. Vision and hearing grossly intact. Vision and hearing grossly intact Thorax: Port in place, no overlying warmth/tenderness. No purulent discharge Pulm: Diminished, basilar crackles bilaterally. Cardiac: RRR, -mrg. Radial pulses intact and symmetrical. Abdominal: Soft, nontender. Ostomy in place with dark brown/green output. Extremities: Bilateral 4+ pitting edema throughout the lower extremities Results & Data Results & Data Vital Signs (Past 12 Hours) Vital Signs Temp Pulse Resp BP Pulse Ox O2 Del Method O2 Flow Rate 10/04/24 07:46 37.3 C 94 H 22 94 10/04/24 07:03 37.3 C 97 H 19 95 10/04/24 06:47 76/45 L 10/04/24 06:45 37.3 C 94 H 12 91 10/04/24 04:47 93/59 L 10/04/24 04:45 37.4 C 104 H 14 92 10/04/24 04:36 37.4 C 102 H 18 90 10/04/24 04:32 103/68 10/04/24 04:30 37.4 C 108 H 14 91 10/04/24 04:27 37.4 C 108 H 20 91 10/04/24 04:24 37.4 C 108 H 18 92 10/04/24 04:17 100/64 10/04/24 04:15 37.4 C 108 H 17 92 10/04/24 04:02 99/67 L 10/04/24 04:00 37.4 C 109 H 14 92 10/04/24 03:48 37.3 C 106 H 14 89 L 10/04/24 03:47 101/60 10/04/24 03:24 37.3 C 105 H 16 90 10/04/24 03:17 100/64 10/04/24 03:09 37.3 C 103 H 19 91 10/04/24 02:54 37.3 C 101 H 14 91 10/04/24 02:47 79/67 L 10/04/24 02:42 37.3 C 100 H 19 97 10/04/24 02:32 93/66 L 10/04/24 02:30 37.3 C 109 H 15 95 10/04/24 02:24 37.3 C 98 H 14 94 10/04/24 02:17 96/61 L 10/04/24 02:15 37.3 C 101 H 20 95 10/04/24 02:00 94/64 L 10/04/24 01:57 37.3 C 20 10/04/24 01:54 37.3 C 19 10/04/24 01:51 37.3 C 16 10/04/24 01:45 37.3 C 104 H 19 10/04/24 01:33 37.3 C 10/04/24 01:32 114/74 10/04/24 01:27 37.2 C 102 H 11 L 93 10/04/24 01:21 37.2 C 104 H 12 93 10/04/24 01:17 112/72 10/04/24 01:03 37.1 C 94 H 19 93 10/04/24 01:02 113/71 10/04/24 01:00 37.1 C 95 H 12 94 10/04/24 00:57 37.1 C 96 H 12 93 10/04/24 00:48 37.2 C 98 H 14 94 10/04/24 00:47 114/85 10/04/24 00:42 37.2 C 93 H 16 93 10/04/24 00:32 104/55 L 10/04/24 00:02 90 10/03/24 22:39 95 Oxymask 3 10/03/24 22:12 37.2 C 94 H 15 96 10/03/24 22:03 37.2 C 9 L 96 10/03/24 22:02 101/63 10/03/24 21:47 93/77 L 10/03/24 21:45 37.3 C 94 H 12 96 10/03/24 21:32 108/67 10/03/24 21:30 37.3 C 83 10 L 98 10/03/24 21:17 112/54 L 10/03/24 21:02 94/78 L 10/03/24 20:57 37.1 C 88 11 L 99 10/03/24 20:33 37.1 C 95 H 24 98 10/03/24 20:33 111/68 10/03/24 20:23 Oxymask 9 10/03/24 20:17 95/61 L 10/03/24 20:15 37.1 C 90 21 98 PG Care Time/CCT Total # of Minutes Spent Total Time Spent with Patient: Total time spent is greater than 50% in coordination of care (as documented) at patient's floor/unit and/or counseling patient: Coding Level of Care Code 71592 SUB INP/OBS CARE 3/50MIN Diagnoses Sepsis A41.9
--- NOTE | 2024-10-04 08:41 | Advance Care Plan Prog Note ---
Advanced Care Planning Note Date of Discussion October 04, 2024 ACP Discussion Diagnoses requiring ACP discussion: The system organ dysfunction, metastatic breast cancer, sepsis, CHF A [id number] discussion with Yamel regarding the patient's advanced care planning took place during this hospitalization on the above date. The discussion included the explanation and discussion of advance directives and associated forms/documents, as well as the patient's current code status. We also discussed at length the patient's medical conditions (both acute and chronic), general prognosis, treatment options, and goals of care. The following summarizes the discussion: Extended discussion with Yamel at the bedside this morning. Overnight she had a discussion with the paper novelty maker VENANCIO and expressed a desire to withdraw aggressive treatments including noninvasive positive pressure ventilation and vasopressors. When seen at the bedside she reports she would like to focus on comfort measures at this time. She expresses an understanding that she has had multiorgan dysfunction, has evidence of an infection with sepsis, and could pass in the hospital from this. She reports she no longer wants invasive treatments including lab draws, pressors, and positive pressure ventilation and would like to focus on comfort. Discussed medication wean and oral medications. She reports she is not interested in taking any oral medications at this time, although is okay continuing Roxanol for pain. She would like to continue antibiotics and steroids today and tomorrow, and then discontinue these. Otherwise would like all meds and labs weaned except for those strictly devoted to comfort/distress. She reports her sister Tg has been involved in her care and was at the bedside earlier this morning understands her wishes, although she had to leave to help take care of her . Yamel reports she does not want Tg called at the moment and would like to "let her rest ", but is okay to her getting an update later in the afternoon. If she were to reasonably stabilize could consider transition to outpatient hospice however given current decline is a significant chance of passing prior to this. Currently she reports she her shortness of breath and anxiety are not adequately controlled, and notes that she has some anxiety over her illness but that this is also worse due to separate shortness of breath. She would like a dose of medication for dyspnea/anxiety, otherwise no questions concerns at time of bedside visit and she expresses an appreciation of her care team. Would like to meet w/ hospice/CM team, but is very tired and feels she would like this meeting to occur 10/05 instead of today if possible. Status Resuscitation Status DNR/DNI No Resuscitation Total Time I spent a total of 35 minutes was spent on this discussion, including counseling, answering questions, and completing, if any, pertinent advanced care planning forms/documents.
[2024-10-04] MEDS ORDERED: ONDANSETRON INJ 2 MG/ML 2 ML VIAL IV PRN (08:45)
[2024-10-04] MEDS: APIXABAN 2.5 MG TAB PO SCH (12:12)
[2024-10-04] MEDS: 4.5GM X1 IV ONE (12:38)
[2024-10-04 13:20] VITALS: O2SAT 92
[2024-10-04] MEDS ORDERED: DAPTOmycin 500 MG in SYRINGE 0 ML IV SCH (14:00)
[2024-10-04] MEDS: 4.5GM EXT INFUSION IV SCH (15:41)
[2024-10-04 19:22] LABS: A calco-baum cmplx NotReported Not Detected (NotDetected); Bact fragilis Not Reported Not Detected (NotDetected); Blood Culture Id Panel See PCR Comment (NotDetected); C auris Not Reported Not Detected (NotDetected); Calbicans Not Reported Not Detected (NotDetected); Candida glabrata Not Reported Not Detected (NotDetected); Candida krusei Not Reported Not Detected (NotDetected); Cneoformans/gatti Not Reported Not Detected (NotDetected); Cparapsilosis Not Reported Not Detected (NotDetected); Ctropicalis Not Reported Not Detected (NotDetected); E cloacae compx Not Reported Not Detected (NotDetected); Efaecalis Not Reported Not Detected (NotDetected); Efaecium Not Reported Not Detected (NotDetected); Enterobacterales Not Reported Not Detected (NotDetected); Escherichia coli Not Reported Not Detected (NotDetected); H influenzae Not Reported Not Detected (NotDetected); K aerogenes Not Reported Not Detected (NotDetected); Koxytoca Not Reported Not Detected (NotDetected); Kpneumoniae grp Not Reported Not Detected (NotDetected); Lmonocyt Not Reported Not Detected (NotDetected); N meningitidis Not Reported Not Detected (NotDetected); P aeruginosa Not Reported Not Detected (NotDetected); Proteus spp Not Reported Not Detected (NotDetected); Salmonella spp Not Reported Not Detected (NotDetected); Staph lugdunensis Not Reported Not Detected (NotDetected); Staph spp. Not Reported DETECTED (NotDetected); Staphaureus Not Reported Not Detected (NotDetected); Staphepi Not Reported DETECTED (NotDetected); Stenmaltophilia Not Reported Not Detected (NotDetected); Strep agal(GrpB) Not Reported Not Detected (NotDetected); Strep pneum Not Reported Not Detected (NotDetected); Strep pyog (GrpA) Not Reported Not Detected (NotDetected); Strep spp Not Reported Not Detected (NotDetected)
[2024-10-04 19:34] LABS: mecAC Resistant Gene DETECTED (NotDetected)
[2024-10-04 19:35] LABS: Staphylococcus epidermidis DETECTED (NotDetected); Staphylococcus spp. DETECTED (NotDetected)
[2024-10-04] MEDS: DAPTOmycin 500 MG in SYRINGE 0 ML IV SCH (21:50)
[2024-10-04] MEDS: MoRPHine SULFATE 2 MG/ML CARP IV PRN (21:54)
[2024-10-05] MEDS: MoRPHine SULFATE 2 MG/ML CARP IV PRN (09:35)
--- NOTE | 2024-10-05 10:07 | Hospitalist Progress Note ---
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 Pain control improving following last - Ativan for anxiety Dyspnea/anxiety was inadequately controlled on morning visit, improved on afternoon revisit - Discontinue all labs, discontinue invasive monitoring Glycopyrrolate on-call if needed Tg is seen with Yamel at bedside 10/05. She did require up titration of morphine for poorly controlled pain in her legs this morning. Does not like the taste and does not feel that oral morphine works well for her, does feel she has improved pain control with IV morphine. Dosing frequency increased to every 2 hours, continue to titrate as needed. Shortness of breath is much better with morphine titration. She is interested in GIP. CM following Sepsis, UTI, ?Staph Epi bacteremia, multiorgan system dysfunction UA infected appearing. Recent UCx with MSSA and Pseudomonas aeruginosa. Pseudomonas was a ciprofloxacin intermediate sensitivity. Initially on cipro, when sensitivities returned --> switched to levo/bactrim renally dosed 09/29. CTA/P: Right subcentimeter foci possible renal calculi with retained contrast less likely, no signs of hydro. Small to moderate pleural effusions, interstitial pulmonary edema anasarca and trace ascites is seen. Extensive multifocal osseous disease. Numerous abdominal wall hernias remonstrated without obstruction. Cholelithiasis without cholecystitis. Recently treated with vasopressors and transferred to the ICU for sepsis/distributive shock combined with adrenal insufficiency. 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 This is in 1/4 bottles. If real could represent gram-positive infection from skin seeding, or also potentially her port although this show no signs of infection clinically. Given staph epi in 1/ could represent contaminant as well. She did receive daptomycin while in the ICU which would have covered for this, had a rapid still rising white count to 59. She endorses that she does still want comfort measures only with the exception of her current antibiotics for a day or so and does not wish for aggressive interventions. Even if her port or another source were involved she would not want surgery to obtain source control at this point. Priorities continue to be comfort from a pain standpoint, comfortable breathing, and comfort from an anxiety standpoint. She feels the medication adjustments to her pain this morning worked well for her. She is interested in meeting with GIP, especially given that she has had pain requiring titration of IV morphine Heart failure with normalized EF Previously with nonischemic cardiomyopathy related to cancer treatments, at that time reduced ejection fraction, subsequently normalized since 2021 Last echo 05/2024 with LVSF normal, moderately dilated RV, borderline MV, moderate TR No chest pain. Troponin was uptrending likely from critical illness and sepsis with MSOD Transitioned to ENGLISH LECTURER Metastatic breast cancer [place] positive HER2/eddie negative breast cancer with mets to bone. C/B lower extremity DVT 02/2021 on Eliquis Most recently on cycle #22 of Enhertu treatment. Steroid pretreatment before these. Last treatment was 2-3 weeks ago . Was previously on Xgeva however this was held History of DVT/PE Anticoagulation held with transition to ENGLISH LECTURER Ostomy Status - 2/2 Diverticular perforation ~6 years ago - Ostomy intact Admission and Anticipated Discharge Date Admission Date: October 03, 2024 Roe Montesinos is seen with Tg at the bedside this morning. She reports she is tired, and has had some increased pain not controlled with her current regimen just since this morning. Pain is mostly in her legs. Morphine frequency was increased to every 2 hours, she feel this works well and has a little bit of residual pain but this is tolerable to her. She is very tired. Discussed her blood culture results 10/03 showing Staph epidermidis with MEC a resistance PCR positive. This is in 1/ bottles. If real could represent gram- positive infection from skin seeding, or also potentially her port although this show no signs of infection clinically. Given staph epi in 02/08 could represent contaminant as well. She did receive daptomycin while in the ICU which would have covered for this, had a rapid still rising white count to 59. She endorses that she does still want comfort measures only with the exception of her current antibiotics for a day or so and does not wish for aggressive interventions. Even if her port or another source were involved she would not want surgery to obtain source control at this point. Priorities continue to be comfort from a pain standpoint, comfortable breathing, and comfort from an anxiety standpoint. She feels the medication adjustments to her pain this morning worked well for her. She is interested in meeting with GIP, especially given that she has had pain requiring titration of IV morphine Physical Exam Physical Exam: General: Somnolent, awakens easily with linear thought process. Fatigued, frail appearing HEENT: Atraumatic, normocephalic. Vision and hearing grossly intact. Vision and hearing grossly intact Thorax: Port in place, no overlying warmth/tenderness. No purulent discharge Extremities: Bilateral 4+ pitting edema throughout the lower extremities PG Care Time/CCT Total # of Minutes Spent Total Time Spent with Patient: Total time spent is greater than 50% in coordination of care (as documented) at patient's floor/unit and/or counseling patient: Coding Level of Care Code 79199 SUB INP/OBS CARE 3/50MIN Diagnoses Sepsis A41.9
--- NOTE | 2024-10-06 08:11 | Hospitalist Progress Note ---
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 Pain control improving following last - Ativan for anxiety Dyspnea/anxiety was inadequately controlled on morning visit, improved on afternoon revisit - Discontinue all labs, discontinue invasive monitoring Glycopyrrolate on-call if needed 10/05. did require up titration of morphine for poorly controlled pain in her legs. Does not like the taste and does not feel that oral morphine works well for her, does feel she has improved pain control with IV morphine. Dosing frequency increased to every 2 hours, continue to titrate as needed. Shortness of breath is much better with morphine titration. She is interested in GIP. CM following Sepsis, UTI, ?Staph Epi bacteremia, multiorgan system dysfunction UA infected appearing. Recent UCx with MSSA and Pseudomonas aeruginosa. Pseudomonas was a ciprofloxacin intermediate sensitivity. Initially on cipro, when sensitivities returned --> switched to levo/bactrim renally dosed 09/29 complete one week . CTA/P: Right subcentimeter foci possible renal calculi with retained contrast less likely, no signs of hydro. Small to moderate pleural effusions, interstitial pulmonary edema anasarca and trace ascites is seen. Extensive multifocal osseous disease. Numerous abdominal wall hernias remonstrated without obstruction. Cholelithiasis without cholecystitis. Recently treated with vasopressors and transferred to the ICU for sepsis/distributive shock combined with adrenal insufficiency. 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 on Dapto and Zosyn, . She endorses that she does still want comfort measures only with the exception of her current antibiotics and does not wish for aggressive interventions. Even if her port or another source were involved she would not want surgery to obtain source control at this point. Priorities continue to be comfort from a pain standpoint, comfortable breathing, and comfort from an anxiety standpoint. She feels the medication adjustments to her pain this morning worked well for her. She is interested in meeting with GIP, especially given that she has had pain requiring titration of IV morphine complete one week course to 10/10, Heart failure with normalized EF Previously with nonischemic cardiomyopathy related to cancer treatments, at that time reduced ejection fraction, subsequently normalized since 2021 Last echo 05/2024 with LVSF normal, moderately dilated RV, borderline MV, moderate TR No chest pain. 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 C/B lower extremity DVT 02/2021 on Eliquis Most recently on cycle #22 of Enhertu treatment. Steroid pretreatment before these. Last treatment was 2-3 weeks ago . Was previously on Xgeva however this was held History of DVT/PE Anticoagulation held with transition to ACQUISITION COST ESTIMATOR Ostomy Status - 2/2 Diverticular perforation ~6 years ago - Ostomy intact Admission and Anticipated Discharge Date Admission Date: October 03, 2024 Subjective pt appears comfortable, friend at the bedside is able to speak, rests easily pain she states is mosly in her eyes Physical Exam Physical Exam: comfortable conversant PG Care Time/CCT Total # of Minutes Spent Total Time Spent with Patient: Total time spent is greater than 50% in coordination of care (as documented) at patient's floor/unit and/or counseling patient: Coding Level of Care Code 30848 SUB INP/OBS CARE 3/50MIN Diagnoses Sepsis A41.9
[2024-10-07] MEDS: HYDROCORTISONE SOD 50 MG in SYRINGE 0 ML IV SCH (07:49)
--- NOTE | 2024-10-07 09:28 | Palliative Care Consultation ---
Date of Consultation October 07, 2024 Assessment & Plan (1) Palliative care by specialist: Met with pt at bedside, no visitors present. Introduced Palliative Medicine and explained our role in advanced care planning, symptom management and navigation through the progression of life limiting disease. Patient awas receptive to palliative services for management of comfort directed care. Reviewed we are different from hospice, a home health nurse visiting service. (2) Comfort measures only status: Pt requested transition to INORGANIC CHEMIST on 10/04/24, has had minimal need for PRN medications for symptom management, is hopeful to [facility] to [facility] hosp[facility]. (3) Need for comfort care: Comfort plan of care parameters: 1. Patient/Family want hospice added to their care. 2. NO rehab/PT/OT 3. Strictly End of Life care only 4. NO escalation of care: do not increase oxygen, escalate therapies, etc. The focus is on comfort through end of life, assure this is accomplished with aggressive symptom management (i.e. relief of dyspnea, pain, etc.) 5. NO return to hospital 6. NO labs, imaging, surgery 7. Oral intake as desired for comfort and pleasure: NO dietary restriction, Allow permissive aspiration, do not withhold food or drink for concern of aspiration and allow PO for pleasure and comfort. 8. If difficulty urinating/commode/bedpan, ok to place Rice catheter for comfort/hygiene/skin protection AND/OR Continue Rice catheter for comfort/hygiene/skin protection 9. NO: calorie counts, artificial nutrition, feeding tubes or IV fluids Medications to continue are noted on discharge summary. 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 Nausea/vomitting zofran 4mg SL Q4H PRN Agitation ativan 0.5mg PO q4h PRN Hyperactive delirium haldol 5mg IVP q6h PRN Secretions - if repositioning not effective robinul 0.4mg IV q4h PRN atropine SL 3 drops Q1h PRN Nursing care: Discontinue all medications not directed towards comfort. Detether pt from IV tubing, monitor cables, and check vitals once per shift. Please continue HFNC and titrate down as able for patient comfort. Use medications above PRN for dyspnea/tachypnea and do not increase oxygen once titrated down. Assess q1h for pain/dyspnea and treat accordingly. Plan as above History of Present Illness Reason for Consultation: EOL symptom management Requesting Physician: Deny Michelle MD Attending Physician: Deny Michelle MD History of Present Illness Ms Ojeda is a 68-year-old female with a past medical history of breast cancer s/p left breast mastectomy 1994, right prophylactic total mastectomy, PE 2015, enlarging mediastinal/hilar lymphadenopathy 2023 and skeletal metastatic disease 2023 started on Enhertu 06/21/2023 with extensive bony metastatic disease redemonstrated 05/2023 and palliative radiation of the right shoulder 11/2023, ostomy status due to prior proved diverticulitis who was admitted on 10/03 with worsening leukocytosis, hypotension, and suspected urosepsis. Allergies Allergy/AdvReac Type Severity Reaction Status Date / Time aspirin Allergy Intermediate hives Verified 12/14/23 12:11 ibuprofen Allergy Intermediate hives Verified 12/14/23 12:11 tamoxifen AdvReac Intermediate temporary Verified 12/14/23 12:11 left eye vision loss Home Medications Medication Instructions Recorded Confirmed Type Wheelchair (Manual) #1 ea 07/14/22 12/14/23 Rx omeprazole 20 mg capsule,delayed 20 mg PO QAM #90 caps 10/30/22 10/03/24 Rx release carvedilol 3.125 mg tablet 3.125 mg PO BIDM 04/05/23 10/03/24 History gabapentin 300 mg capsule 300 mg PO QID 04/05/23 10/03/24 History loperamide 2 mg tablet (Imodium 2 mg PO Q4H PRN Diarrhea 04/05/23 10/03/24 History A-D) magnesium oxide 400 mg (241.3 mg 800 mg PO BIDM 04/05/23 10/03/24 History magnesium) tablet colostomy bags #15 ea 07/27/23 12/14/23 Rx eucalyptus-menthol oral mucosal 1 esteban mucous membrane UD PRN Cough 11/30/23 10/03/24 History lozenge ferrous sulfate 325 mg (65 mg 325 mg PO QAM 11/30/23 10/03/24 History iron) tablet folic acid 1 mg tablet 1 mg PO QAM 11/30/23 10/03/24 History apixaban 2.5 mg tablet (Eliquis) 2.5 mg PO BID 02/28/24 10/03/24 History atorvastatin 10 mg tablet 10 mg PO DAILY 02/28/24 10/03/24 History magnesium hydroxide 400 mg/5 mL 30 ml PO DAILY PRN Constipation 02/28/24 10/03/24 History oral suspension (Milk of Magnesia) methyl salicylate-menthol topical 1 applic topical BID PRN Pain 02/28/24 10/03/24 History cream sodium phosphates 19 gram-7 118 ml MA DAILY PRN Constipation 02/28/24 10/03/24 History gram/118 mL enema (Fleet Enema) Calcium + D 1 tab PO QID 10/03/24 10/03/24 History acetaminophen 500 mg tablet 1,000 mg PO Q8H PRN Pain 10/03/24 10/03/24 History bisacodyl 10 mg rectal suppository 10 mg MA DAILY PRN Constipation 10/03/24 10/03/24 History (Dulcolax (bisacodyl)) buspirone 10 mg tablet 10 mg PO TID PRN anxiety 10/03/24 10/03/24 History cyanocobalamin (vitamin B-12) 1,000 mcg IM .FIRST OF MONTH 10/03/24 10/03/24 History 1,000 mcg/mL injection kit diclofenac sodium 1 % topical gel 2 g topical QID 10/03/24 10/03/24 History fentanyl 37.5 mcg/hour transdermal 1 patch topical .Q 3 DAYS 10/03/24 10/03/24 History patch heparin lock flush (porcine) 5 ml IV DAILY 10/03/24 10/03/24 History levofloxacin 500 mg tablet 500 mg PO .DAILY FOR 7 DAYS 10/03/24 10/03/24 History mirtazapine 15 mg tablet (Remeron) 15 mg PO DAILY 10/03/24 10/03/24 History ondansetron HCl 4 mg tablet 4 mg PO Q6H PRN N/V 10/03/24 10/03/24 History oxycodone 10 mg tablet 10 mg PO Q6H PRN Pain, Severe 10/03/24 10/03/24 History oxycodone 5 mg capsule 5 mg PO Q6H PRN Pain, Moderate 10/03/24 10/03/24 History paroxetine HCl 30 mg tablet 30 mg PO DAILY 10/03/24 10/03/24 History promethazine 25 mg/mL injection 25 mg IM Q6H PRN N/V 10/03/24 10/03/24 History solution (Phenergan) simethicone 125 mg capsule 125 mg PO Q8H PRN ABD. DISCOMFORT 10/03/24 10/03/24 History sodium chloride 0.9 % 50 ml IV DAILY 10/03/24 10/03/24 History sodium chloride 0.9 % (flush) 10 ml IV DAILY 10/03/24 10/03/24 History sulfamethoxazole 400 1 tab PO BID 10/03/24 10/03/24 History mg-trimethoprim 80 mg tablet Patient History Medical History (Updated 10/07/24 @ 10:19 by TYLOR Dupree) Port-A-Cath in place (12/05/23) Insertion Access Port Internal Jugular(Right) - Shyam Cook MD, FACS Vitamin D deficiency History of DVT (deep vein thrombosis) GERD (gastroesophageal reflux disease) Colostomy in place 2017 (after diverticular perforation complications) CAD (coronary artery disease) Follows with [facility] cardio long term resident resides at [facility] History of sepsis per [facility] Record Cognitive communication deficit Dysphagia Generalized muscle weakness Personal history of transient ischemic attack (TIA), 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 deficits per [facility] Record, no further info provided Benign paroxysmal vertigo Essential (primary) hypertension Anxiety disorder Major depressive disorder Other abnormalities of gait and mobility Anorexia Unspecified severe protein-calorie malnutrition Polyneuropathy Anemia CHF (congestive heart failure) Breast cancer metastasized to bone hx chemo, radiation + surgery Difficult intravenous access Left leg DVT Taking Eliquis Diverticular disease PVC (premature ventricular contraction) h/o PAC (premature atrial contraction) Hx Cardiomyopathy Follows with [facility] cardio LV dysfunction Lumbar disc herniation with radiculopathy Diabetes Surgical History (Updated 12/05/23 @ 05:57 by Courtney Treadwell RN) History of bowel resection Ostomy placed History of total left hip replacement per [facility] record History of colonoscopy History of humerus fracture (03/26/20) with open reduction and internal fixation due to pathological fracture (Dr. Gillette) History of surgery for malignant neoplasm 2017 removal of substernal mass + radiation History of intestinal surgery History of cardiac cath 2017- no stents History of hysterectomy History of lumbar laminectomy H/O bilateral mastectomy limb restriction LUE per [facility] Record Family History Mother Breast cancer Sister Breast cancer Hypertension Father Myocardial infarction Prostate cancer Heart disease Other Cancer Denies family history of Ovarian cancer Colorectal cancer Social History (Updated 11/28/23 @ 16:37 by Lakisha Salvador, JASON) Smoking Status: Former smoker Tobacco Type: Cigarettes Age Started Using Tobacco: 15; Second Hand Exposure: No; Do You Dip or Chew Tobacco: No; Hx Alcohol Use: No Hx Substance Use: No Preferred Language: Ethiopian Communication Ability: Effective Visual Impairment: No Limitations Hearing Ability: Normal Transcription Required: No Beliefs That Will Affect Care: Anglican marital status: Single Current Living Situation: Custodial Current Living Situation Comment: [facility] current occupational status: retired How many Children do You have: 0 Feels Safe at Home: Yes Childhood Exposure to Second-Hand Smoke: No Diet: regular caffeine: Yes during the past year weight has: increased > 10 lbs Dental Care, Regularly: Yes Physical Activity Frequency: Does not Exercise Seatbelt Use: never Sunscreen Use: Yes Assistive Devices: Denture - Upper and Denture - Lower Review of Systems Review of Systems: All systems reviewed & are unremarkable except as noted in HPI & below Physical Exam Constitutional: WD/WN, vitals as above + obese, cooperative and comfortable ; no acute distress Eyes: PERRL, conjunctivae normal, anicteric sclerae Respiratory: normal respiratory effort, lungs clear to auscultation Gastrointestinal (Abdomen): normal bowel sounds, soft, nontender, no hepatosplenomegaly Skin: no rashes, warm and dry Neurologic: PERRL, EOMI, accommodation nl, no face palsy, no dysarthria Psychiatric: A+Ox3, euthymic affect Results & Data Vital Signs (Past 12 Hours) Vital Signs Temp 37.1 C 10/04/24 18:12 Pulse 85 10/04/24 18:12 Resp 12 10/04/24 18:12 BP 76/45 L 10/04/24 06:47 Pulse Ox 92 10/04/24 09:06 O2 Del Method Nasal Cannula 10/07/24 07:45 O2 Flow Rate 2 10/07/24 07:45 Intake & Output 10/06/24 10/07/24 10/07/24 18:59 06:59 18:59 Intake Total 100 / 100 Output Total 225 / 225 Balance 100 / 100 -225 / -225 Intake: IV 100 / 100 Piperacillin/Tazobactam 4.5 gm 100 / 100 In 100 ml @ 25 mls/hr IV Q8H [facility] Rx#:[id number] Output: Gastric Drainage 225 / 225 Ileostomy/Colostomy 225 / 225 Other: Other Intake Source sips Laboratory Results No further labs or diagnostics in concert with comfort directed care. Diagnostic Findings No further labs or diagnostics in concert with comfort directed care. Medications Administered Current Inpatient Medications Apixaban (Apixaban 2.5 Mg Tab) 2.5 mg PO BID [facility]DE Stop: 11/03/24 09:59 Last Admin: 10/05/24 19:31 Dose: Not Given Glycopyrrolate (Glycopyrrolate 0.2 Mg/Ml Vial) 0.4 mg IV Q4H PRN PRN Reason: Rattling Secretions or Pulm Congestion Stop: 11/03/24 08:44 Daptomycin 500 mg/ Syringe 10 mls @ 5 mls/min IV Q24H TUNDE; Protocol Stop: 10/18/24 20:59 Last Admin: 10/06/24 20:36 Dose: 5 mls/min Hydrocortisone Sodium (Succinate 50 mg/ Syringe) 1 mls @ 4 mls/min IV DAILY TUNDE Stop: 11/06/24 08:59 Last Admin: 10/07/24 07:49 Dose: 4 mls/min Lorazepam (Lorazepam 2 Mg/1 Ml Vial) 0.5 mg IV Q4H PRN PRN Reason: Anxiety/Agitation Stop: 11/03/24 08:44 Last Admin: 10/06/24 20:31 Dose: 0.5 mg Lorazepam (Lorazepam 0.5 Mg Tab) 0.5 mg PO Q4H PRN PRN Reason: Anxiety/Agitation Stop: 11/06/24 10:38 Morphine Sulfate (Morphine Sulfate 2 Mg/Ml Carp) 2 mg IV Q2H PRN PRN Reason: Pain or Respiratory Distress Stop: 10/18/24 08:44 Last Admin: 10/07/24 10:45 Dose: 2 mg Morphine Sulfate (Morphine Sulfate 10 Mg/0.5 Ml Udp) 5 mg PO Q2H PRN PRN Reason: Pain or Respiratory Distress Stop: 10/21/24 10:38 Ondansetron HCl (Ondansetron Inj 2 Mg/Ml 2 Ml Vial) 4 mg IV Q4H PRN PRN Reason: Nausea &/or Vomiting Stop: 11/03/24 08:44 Ondansetron HCl (Ondansetron 4 Mg Od Tab) 4 mg SL Q4H PRN PRN Reason: Nausea &/or Vomiting Stop: 11/06/24 10:38 PG Care Time/CCT Total # of Minutes Spent Total Time Spent with Patient: Total time spent is greater than 50% in coordination of care (as documented) at patient's floor/unit and/or counseling patient: [place] [address] IN/OBS CONSULT LVL 4,60M Patient Type New History Problem Focused Exam Problem Focused Medical Decision Making Moderate Complexity Diagnoses Palliative care by specialist Z51.5 Comfort measures only status Z51.5 Need for comfort care
[2024-10-07] MEDS ORDERED: ONDANSETRON 4 MG OD TAB SL PRN (10:39)
[2024-10-07 16:20] VITALS: BP 87/59; PULSE 88; RESP 18; TEMP 97.5
--- NOTE | 2024-10-07 16:41 | Palliative Family Discussion ---
Date of Service October 07, 2024 Patient Directed Conference Time of Meetin:00 - 16:30 Participants: Lani Knowles AGACNP Patient participation: yes Patient Support System: pt's sister Tg Other Healthcare Provider Participation: None Meeting Location: bedside Advanced Directive available:no If yes, descriptors: A family meeting was held for YAMEL WU. This meeting was necessary for determining the appropriate course of treatment. Topics of Discussion Topics of Discussion: 1. goals of care 2. comfort directed care 3. Conscious Dying Coaching program Other Content of Meetin. Opportunity given for participants to speak and ask questions. 2. Participants were assured of attention to patient comfort. 3. Reassurance provided. 4. Support was provided for informed, good-nataly decisions. 5. Emotions expressed by family were acknowledged and addressed. 6. Follow-up Outpatient: n/a 7. Plan of Care: [facility]CE[facility], plan for dc back to [facility] with hospice Discussed GOC with patient and her sister Tg. Discussed the patient's extensive metatstatic disease and transition to RECEIVER BULK SYSTEM over weekend. Pt expressed desire to "stay the course" and clarified that "she just want to be kept comfortable". Tg expressed that patient's wishes are of highest importance and her own wish to support her sister through her chosen path. Pt expressed understanding that she is dying and that any life prolonging treatments are not going to change that. She requests transfer back to [facility] for ongoing hospice care. Discussed changes pt may move through in the dying process including but not limited to sleeping more, disorientation when awake, restlessness, diminished senses/inability to respond to stimulus although ability to be aware of them remains intact longer, and changes in body temperatures, skin changes/mottling/cyanosis, respiratory pattern changes, and oral secretions. Family verbalized understanding. The goal is to assure a peaceful . Also discussed engaging palliative foundation funded Conscious Dying Coaching with Rev Nuzhat Robertson. I reviewed that Rev Robertson offers assistance on non clinical issues, supporting patients as they consider, navigate and become clear on what is most important for their end of life. Rev Robertson helps patients align how they are currently living with the vision they see for yourself at the end, then identify and set goals, along with action steps for yourself to fulfill that vision. The focus is on the 5 domains of life: Spiritual, emotional, physical, mental, and practical. Shreya would like this engagement with Rev Robertson and I have provided pt with Rev Robertson's contact information. Patient and family asked that I share her name and phone with Rev Robertson to contact, as it is sometimes hard for pt to make the call, fearing rejection. I reviewed that End of life coaching and planning begins with 10 structured sessions we like to call, the best three months. Based on 10 total meetings over a 3-4 month period. Average meeting time 60-90 minutes. 2 meetings per domain. Over a three month period, there is support for the family and patient to identify their vision, current reality and steps to be taken to implement life fulfillment and care wishes in the spiritual, emotional, mental, physical and practical domains of life. This service includes: Best Three Months End-of-Life Care Coaching and Planning with Family, Patient and Co-coordination with Medical/Hospice Care Providers. Yamel and Tg are agreeable to this service, contact information shared with Tg. Time Involved in Meeting: I spent 45 minutes overall addressing this case: 5 in medical data review/discussion with referring provider(s) and/or preparation for the visit 30 in direct interaction with the patient and her sister 30 Advance Care Planning/Goals of Care discussions as detailed above in note (must be >16min) 5 in subsequent review and synthesis of assessment and plan 5 in communicating with other providers regarding the patient's case: Dr Michelle, Kandace Mckinney - PATTI; BSRN
--- NOTE | 2024-10-07 17:45 | Hospitalist Progress Note ---
Date of Service October 07, 2024 Assessment & Plan (1) Sepsis: Plan: 68 F with metastatic breast cancer with skeletal involvement and expanding medistinal lymphadenopathy, admitted with UTI felicia failed outpt attempt at treatment, on antibiotics but has decided to enter into comfort care OPERATIONS TECHNICIAN - See ACP Note 10/04 for further goals discussion. In the afternoon of 10/07 the patient's power of assistant county attorney seemed confused that we need to have another goals of care conversation. What she really meant was that there needed to be discussions about how to help Yamel emotionally cope with her dying time we brought up the idea of a automotive light mechanic we do have access to this and this will be help to be arranged by her inpatient palliative care team. -There were some discussion about oral morphine that she does not like it works well nor does she like the taste perhaps we will try some oral oxycodone to see if it is a different flavor. 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 Small to moderate pleural effusions, interstitial pulmonary edema anasarca and trace ascites is seen. Extensive multifocal osseous disease. Numerous abdominal wall hernias remonstrated without obstruction. Cholelithiasis without cholecystitis. Recently treated with vasopressors and transferred to the ICU for sepsis/distri butive shock combined with adrenal insufficiency. 10/04 transition to OPERATIONS TECHNICIAN after discussion with ICU and desire to withdraw aggressive interventions including vasopressors - 10/05: Discussed her blood culture results 10/03 showing Staph epidermidis with MEC a resistance PCR positive. If patient did have gram-positive bacteremia we would need to treat until cultures are clear and remove her line this is not within her spirit of her comfort care discussion. Subsequently we will treat this as a contaminant specimen and not continue any antibiotics at this time. Heart failure with normalized EF Previously with nonischemic cardiomyopathy related to cancer treatments, at that time reduced ejection fraction, subsequently normalized since 2021 Last echo 05/2024 with LVSF normal, moderately dilated RV, borderline MV, moderate TR No chest pain. Troponin was uptrending likely from critical illness and sepsis with MSOD Transitioned to OPERATIONS TECHNICIAN Metastatic breast cancer ER/VA positive HER2/eddie negative breast cancer with mets to bone. C/B lower extremity DVT 02/2021 on Eliquis Most recently on cycle #22 of Enhertu treatment. Steroid pretreatment before these. Last treatment was 2-3 weeks ago . Was previously on Xgeva however this was held History of DVT/PE Anticoagulation held with transition to OPERATIONS TECHNICIAN Ostomy Status - 2/2 Diverticular perforation ~6 years ago - Ostomy intact Rice care discussion which time was spent this afternoon coordinating goals of care discussion with parents assistant county attorney both [place] and Tg and discussion with Sugey in our palliative care health department. Yamel is comfortable she is near her dying time and not actively dying at this point in time she is comfortable at [facility] and likely she may benefit from transitioning to hospice care while at center care especially since her goals of care have been redirected after discussions with her over this weekend. Subsequently we will try to achieve pain control with oral oxycodone liquid and if she does feel comfortable with its taste and effectiveness that may be an agent we can use since she does not feel the morphine is not helpful to her Overall time both at the bedside and discussion with family and caregivers was an hour and 15 minutes Admission and Anticipated Discharge Date Admission Date: October 03, 2024 Subjective Patient seen in the morning. She not requiring pain medications overnight. She appeared comfortable. My conversation with her revolved around how comfortable she was returning to [facility] at this time she said she was comfortable that the staff treated her well and she was not opposed to it. However later in the day a conversation with her power of assistant county attorney was her sister's give her contrary information saying that she wanted to stay here for 7 days of antibiotic treatment and when she was not ready to return back to [facility]. It is unclear whether she got the 7 days of antibiotic treatment. This was initially instituted because of 1 blood culture to 4 being positive for skin related bacteria. Return call the power of assistant county attorney resulted in approximately 35-minute discussion regarding goals of care. Physical Exam Physical Exam: comfortable conversant nonlabored breathing card exam is regular but distant she is awake and oriented to person and place not to time and she is occasionally confused at time Results & Data Results & Data Vital Signs (Past 12 Hours) Vital Signs Temp Pulse Resp BP O2 Del Method O2 Flow Rate 10/07/24 15:00 97.5 F L 88 18 87/59 L Room Air 10/07/24 07:45 Nasal Cannula 2 PG Care Time/CCT Total # of Minutes Spent Total Time Spent with Patient: Total time spent is greater than 50% in coordination of care (as documented) at patient's floor/unit and/or counseling patient: Coding Level of Care Code 94315 SUB INP/OBS CARE 3/50MIN Diagnoses Sepsis A41.9
[2024-10-07] MEDS: LINEZOLID 600 MG TAB PO SCH (21:00)
--- NOTE | 2024-10-08 09:27 | Palliative Care Progress Note ---
Date of Service October 08, 2024 Assessment & Plan (1) Palliative care by specialist: Plan: Palliative care will continue to follow for ongoing EOL pt care and family support. (2) Need for comfort care: Plan: Pt transitioned to FLIGHT SOFTWARE TEST ENGINEER on 10/04/24. (3) Cancer related pain: Plan: Pt states pain not well managed, utilized IV morphine over night which she states just takes the edge off her pain. She c/o generalized back pain but mainly bothered by constant BLE aching pains. Pt continues to experience moderate - severe pain as documented by attending team as well. Previous 24hr utilization of 42 OME, all in the form of IV morphine. Pt received one dose of oxycodone today, and reports better pain management than with morphine. Discussed with patient starting a long acting oral opiate for more consistent pain management. Patient in agreement. Oxycontin ER 10mg Q12hr scheduled (opiate conversion calculated with 25% dose reduction to account for cross tolerance). Will continue oxycodone IR for BTP. Added Oxycontin 10mg PO q12h TUNDE Continue Oxycodone IR 7.5mg Q6h PRN for BTP discontinue IV morphine Plan as above. FLIGHT SOFTWARE TEST ENGINEER, pt hopeful for discharge back to [facility] for ongoing hospice care. Admission and Anticipated Discharge Date Admission Date: October 03, 2024 Subjective Assessed pt at bedside, sister Tg was present. Pt states that she rested well last night, but she states her pain not currently well managed (last morphine was given approximately 2hrs prior). NAD on room air. Review of Systems Gastrointestinal: poor appetite Musculoskeletal: generalized back pain Physical Exam Constitutional: WD/WN, vitals as above + obese, cooperative and comfortable; no acute distress Eyes: PERRL, conjunctivae normal, anicteric sclerae Respiratory: normal respiratory effort, lungs clear to auscultation Gastrointestinal (Abdomen): normal bowel sounds, soft, nontender, no hepatosplenomegaly Skin: no rashes, warm and dry Neurologic: PERRL, EOMI, accommodation nl, no face palsy, no dysarthria Psychiatric: A+Ox3, euthymic affect Results & Data Vital Signs (Past 12 Hours) Vital Signs O2 Del Method O2 Flow Rate 10/07/24 21:50 Nasal Cannula 2 Laboratory Results No further labs or diagnostics in concert with comfort directed care. Diagnostic Findings No further labs or diagnostics in concert with comfort directed care. Medications Administered Current Inpatient Medications Apixaban (Apixaban 2.5 Mg Tab) 2.5 mg PO BID [facility] Stop: 11/03/24 09:59 Last Admin: 10/05/24 19:31 Dose: Not Given Glycopyrrolate (Glycopyrrolate 0.2 Mg/Ml Vial) 0.4 mg IV Q4H PRN PRN Reason: Rattling Secretions or Pulm Congestion Stop: 11/03/24 08:44 Linezolid (Linezolid 600 Mg Tab) 600 mg PO BID [facility] Stop: 10/10/24 20:59 Last Admin: 10/08/24 10:38 Dose: Not Given Lorazepam (Lorazepam 2 Mg/1 Ml Vial) 0.5 mg IV Q4H PRN PRN Reason: Anxiety/Agitation Stop: 11/03/24 08:44 Last Admin: 10/07/24 21:54 Dose: 0.5 mg Lorazepam (Lorazepam 0.5 Mg Tab) 0.5 mg PO Q4H PRN PRN Reason: Anxiety/Agitation Stop: 11/06/24 10:38 Morphine Sulfate (Morphine Sulfate 10 Mg/0.5 Ml Udp) 5 mg PO Q2H PRN PRN Reason: Pain or Respiratory Distress Stop: 10/21/24 10:38 Ondansetron HCl (Ondansetron Inj 2 Mg/Ml 2 Ml Vial) 4 mg IV Q4H PRN PRN Reason: Nausea &/or Vomiting Stop: 11/03/24 08:44 Ondansetron HCl (Ondansetron 4 Mg Od Tab) 4 mg SL Q4H PRN PRN Reason: Nausea &/or Vomiting Stop: 11/06/24 10:38 Oxycodone HCl (Oxycodone Hcl Soln 5 Mg/5 Ml Udc) 7.5 mg PO Q6H PRN PRN Reason: Pain Stop: 10/22/24 09:14 Oxycodone HCl (Oxycodone Hcl 10 Mg Tabcr (Oxycontin)) 10 mg PO Q12H [facility] Stop: 10/22/24 17:59 PG Care Time/CCT Total # of Minutes Spent Total Time Spent with Patient: Total time spent is greater than 50% in coordination of care (as documented) at patient's floor/unit and/or counseling patient: Coding [place] [address] SUB INP/OBS CARE 50MIN Patient Type Established History Expanded Problem Focused Exam Expanded Problem Focused Medical Decision Making Moderate Complexity Diagnoses Palliative care by specialist Z51.5 Need for comfort care Cancer related pain G89.3
[2024-10-08] MEDS: MoRPHine SULFATE 10 MG/0.5 ML UDP PO PRN (12:20)
--- NOTE | 2024-10-08 15:33 | Hospitalist Progress Note ---
Date of Service October 08, 2024 Assessment & Plan (1) Sepsis: Plan: 68 F with metastatic breast cancer with skeletal involvement and expanding medistinal lymphadenopathy, admitted with UTI sxas failed outpt attempt at treatment, on antibiotics but has decided to enter into comfort care STUDENT OFFICER - See ACP Note 10/04 for further goals discussion. After discussions on 2 is clear the patient is going to continue on comfort care measures her disposition will be determined whether her best pain control can be met. Discussions about how to help Yamel emotionally cope with her dying time we brought up the idea of a physics department chair palliative care team has given her sister information on how to engage with the physics department chair. 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 Recently treated with vasopressors and transferred to the ICU for sepsis/distributive shock combined with adrenal insufficiency. 10/04 transition to STUDENT OFFICER after discussion with ICU and desire to withdraw aggr essive interventions including vasopressors - 10/05: Discussed her blood culture results 10/03 showing Staph epidermidis with MEC a resistance PCR positive. If patient did have gram-positive bacteremia we would need to treat until cultures are clear and remove her line this is not within her spirit of her comfort care discussion. Heart failure with normalized EF Previously with nonischemic cardiomyopathy related to cancer treatments, at that time reduced ejection fraction, subsequently normalized since 2021 Last echo 05/2024 with LVSF normal, moderately dilated RV, borderline MV, moderate TR No chest pain. Troponin was uptrending likely from critical illness and sepsis with MSOD Transitioned to STUDENT OFFICER Metastatic breast cancer ER/MO positive HER2/eddie negative breast cancer with mets to bone. C/B lower extremity DVT 02/2021 on Eliquis Most recently on cycle #22 of Enhertu treatment. Steroid pretreatment before these. Last treatment was 2-3 weeks ago . Was previously on Xgeva however this was held History of DVT/PE Anticoagulation held with transition to STUDENT OFFICER Ostomy Status - 2/2 Diverticular perforation ~6 years ago - Ostomy intact we will try to achieve pain control with oral oxycodone liquid and continue parenteral morphine for backup if this dose is not appropriate. At this time before transition with this patient to be in a comfortable state. Her pain is escalated over the last 24 hours and subsequently she continues additional in hospital care Admission and Anticipated Discharge Date Admission Date: October 03, 2024 Subjective Assessed pt at bedside, sister Tg was present. Pt states that she rested well last night, but she states her pain not currently well managed (last morphine was given approximately 2hrs prior). Patient is agreeable to trial oral oxycodone since she was not pleased with the oral morphine. Palliative care did schedule oral oxycodone twice a day as she was having fairly significant pain today. On second visit in the afternoon the patient now had better pain control and was more sleeping. Family was present at the first visit but not at the second visit. Currently her disposition is unclear whether her lethargy will progress but her pain control is much most important. Physical Exam Physical Exam: comfortable conversant nonlabored breathing card exam is regular but distant she is awake and oriented to person and place not to time and she is occasionally confused at times, in the morning most of her pain was her elbows in the afternoon most of her pain was her back is known to have skeletal metastasis Results & Data Results & Data Vital Signs (Past 12 Hours) Vital Signs O2 Del Method O2 Flow Rate 10/08/24 07:20 Nasal Cannula 2 PG Care Time/CCT Total # of Minutes Spent Total Time Spent with Patient: Total time spent is greater than 50% in coordination of care (as documented) at patient's floor/unit and/or counseling patient: Coding Level of Care Code 43153 SUB INP/OBS CARE 2/35MIN Diagnoses Sepsis A41.9
[2024-10-08] MEDS: LORazepam 0.5 MG TAB PO PRN (20:15)
[2024-10-09] MEDS: GLYCOPYRROLATE 0.2 MG/ML VIAL IV PRN (09:14)
[2024-10-09] MEDS: LIDOCAINE 5% 1 PATCH TD SCH (11:01)
--- NOTE | 2024-10-09 11:42 | Palliative Care Progress Note ---
Date of Service October 09, 2024 Assessment & Plan (1) Palliative care by specialist: Plan: Palliative care will continue to follow for ongoing EOL pt care and family support. (2) Need for comfort care: Plan: Pt transitioned to HIGHWAY MAINTENANCE TECHNICIAN on 10/04/24. (3) Cancer related pain: Plan: Pt states pain not well managed, She c/o generalized back pain but mainly bothered by constant BLE aching pains. Pt continues to experience moderate - severe pain as documented by attending team as well. Previous 24hr utilization of 67.5 OME. Pt reports better pain management with oral oxycodone than with morphine. Discussed with patient increasing long acting oral opiate for more consistent pain management. Patient in agreement. Increased to Oxycontin ER 15mg Q12hr scheduled. Continue oxycodone IR for BTP. Increase Oxycontin to 15mg PO q12h TUNDE Increase Oxycodone IR 10mg Q6h PRN for BTP Last 24h hour OMEs: 67.5 (previous 24hr 42 OME) Morphine 5 mg x6 = 30 OME oxycodone 25 mg = 37.5 OME Other palliative medications over past 24hr ativan 0.5mg x1 dose Plan as above. HIGHWAY MAINTENANCE TECHNICIAN, pt hopeful for discharge back to [facility] for ongoing hospice care. Admission and Anticipated Discharge Date Admission Date: October 03, 2024 Subjective Assessed pt at bedside, multiple friends present. Pt more drowsy today, remains arousable and lucid. She states her pain not currently well managed. NAD on room air. Review of Systems Gastrointestinal: poor appetite Musculoskeletal: generalized back pain, BLE with constant ache Physical Exam Constitutional: WD/WN, vitals as above + obese, cooperative and comfortable; no acute distress Eyes: PERRL, conjunctivae normal, anicteric sclerae Respiratory: normal respiratory effort, lungs clear to auscultation Gastrointestinal (Abdomen): normal bowel sounds, soft, nontender, no hepatosplenomegaly Skin: no rashes, warm and dry Neurologic: PERRL, EOMI, accommodation nl, no face palsy, no dysarthria Psychiatric: A+Ox3, euthymic affect Results & Data Vital Signs (Past 12 Hours) Vital Signs O2 Del Method O2 Flow Rate 10/09/24 07:32 Nasal Cannula 2 Laboratory Results No further labs or diagnostics in concert with comfort directed care. Diagnostic Findings No further labs or diagnostics in concert with comfort directed care. Medications Administered Current Inpatient Medications Glycopyrrolate (Glycopyrrolate 0.2 Mg/Ml Vial) 0.4 mg IV Q4H PRN PRN Reason: Rattling Secretions or Pulm Congestion Stop: 11/03/24 08:44 Last Admin: 10/09/24 09:14 Dose: 0.4 mg Lidocaine (Lidocaine 5% 1 Patch) 1 patch TD QAM [facility] Stop: 11/08/24 08:59 Last Admin: 10/09/24 11:01 Dose: 1 patch Linezolid (Linezolid 600 Mg Tab) 600 mg PO BID [facility] Stop: 10/10/24 20:59 Last Admin: 10/09/24 08:35 Dose: Not Given Lorazepam (Lorazepam 2 Mg/1 Ml Vial) 0.5 mg IV Q4H PRN PRN Reason: Anxiety/Agitation Stop: 11/03/24 08:44 Last Admin: 10/07/24 21:54 Dose: 0.5 mg Lorazepam (Lorazepam 0.5 Mg Tab) 0.5 mg PO Q4H PRN PRN Reason: Anxiety/Agitation Stop: 11/06/24 10:38 Last Admin: 10/08/24 20:15 Dose: 0.5 mg Miscellaneous (Remove Lidoderm Patch) 1 each N/A DAILY@2100 [facility] Stop: 11/08/24 20:59 Morphine Sulfate (Morphine Sulfate 10 Mg/0.5 Ml Udp) 5 mg PO Q2H PRN PRN Reason: Pain or Respiratory Distress Stop: 10/21/24 10:38 Last Admin: 10/09/24 07:24 Dose: 5 mg Ondansetron HCl (Ondansetron Inj 2 Mg/Ml 2 Ml Vial) 4 mg IV Q4H PRN PRN Reason: Nausea &/or Vomiting Stop: 11/03/24 08:44 Ondansetron HCl (Ondansetron 4 Mg Od Tab) 4 mg SL Q4H PRN PRN Reason: Nausea &/or Vomiting Stop: 11/06/24 10:38 Oxycodone HCl (Oxycodone Hcl Soln 5 Mg/5 Ml Udc) 10 mg PO Q6H PRN PRN Reason: Pain Stop: 10/22/24 09:14 Last Admin: 10/09/24 09:14 Dose: 10 mg Oxycodone HCl (Oxycodone Hcl 15 Mg Tabcr (Oxycontin)) 15 mg PO Q12H TUNDE Stop: 10/23/24 08:59 PG Care Time/CCT Total # of Minutes Spent Total Time Spent with Patient: Total time spent is greater than 50% in coordination of care (as documented) at patient's floor/unit and/or counseling patient: Coding [place] [address] SUB INP/OBS CARE 2/35MIN Patient Type Established History Expanded Problem Focused Exam Expanded Problem Focused Medical Decision Making Moderate Complexity Diagnoses Palliative care by specialist Z51.5 Need for comfort care Cancer related pain G89.3
--- NOTE | 2024-10-09 11:56 | Hospitalist Progress Note ---
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 After discussions on 10/07 it is clear the patient is going to continue on comfort care measures at the time of discharge to [facility] care. Discussions about how to help Yamel emotionally cope with her dying time we brought up the idea of a systems coordinator palliative care team has given her sister information on how to engage with the systems coordinator. It was agreeable to try oral oxycodone to try to have a more prolonged analgesic effect over the IV morphine but the IV morphine is still available for breakthrough pain Glycopyrrolate on-call if needed Sepsis, UTI, ?Staph Epi bacteremia, multiorgan system dysfunction unclear that this is the exact class a regional drivers I believe sepsis has been ruled out her blood cultures are likely a contaminant we will however complete treatment with linezolid orally for the remainder of a 7-day course CTA/P: Extensive multifocal osseous disease. Recently treated with vasopressors and transferred to the ICU for sepsis/distributive shock combined with adrenal insufficiency. 10/04 transition to BIT SHARPENER OPERATOR after discussion with ICU and desire to withdraw aggressive interventions including vasopressors - 10/05: Discussed her blood culture results 10/03 showing Staph epidermidis with MEC a resistance PCR positive. If patient did have gram-positive bacteremia we would need to treat until cultures are clear and remove her line this is not within her spirit of her comfort care discussion. Heart failure with normalized EF Previously with nonischemic cardiomyopathy related to cancer treatments, at that time reduced ejection fraction, subsequently normalized since 2021 Last echo 05/2024 with LVSF normal, moderately dilated RV, borderline MV, moderate TR No chest pain. Troponin was uptrending likely from critical illness and sepsis with MSOD Transitioned to BIT SHARPENER OPERATOR Metastatic breast cancer ER/WI positive HER2/eddie negative breast cancer with mets to bone. C/B lower extremity DVT 02/2021 on Eliquis Most recently on cycle #22 of Enhertu treatment. Steroid pretreatment before these. Last treatment was 2-3 weeks ago . Was previously on Xgeva however this was held History of DVT/PE Anticoagulation held with transition to BIT SHARPENER OPERATOR Ostomy Status - 2/2 Diverticular perforation ~6 years ago - Ostomy intact we will try to achieve pain control with oral oxycodone liquid and continue parenteral morphine for backup if this dose is not appropriate. At this time before transition with this patient to be in a comfortable state. Her pain is escalated over the last 24 hours and subsequently she continues additional in hospital care Plan Eventual discharge to Center care with hospice once pain is controlled Admission and Anticipated Discharge Date Admission Date: October 03, 2024 Subjective The patient is somnolent at the time of my rounds. Significant other is at the bedside. Palliative care entry noted. Oxycodone dosage has been uptitrated today, October 09. She will be discharged to [facility] care with [facility] hospice eventually Review of Systems 2 Review of Systems: The patient is unable to answer any questions regarding review of systems at this time Physical Exam 2 Physical Exam: General-somnolent. No fever HEENT-head atraumatic and normocephalic Neck-no lymphadenopathy or thyromegaly, trachea midline Chest-diminished breath sounds bilaterally from anterior approach. No rales, wheezing or rhonchi Cardiac-regular rate and rhythm, normal S1 and S2 Abdomen-normal bowel sounds, no hepatosplenomegaly Extremities-no cyanosis, clubbing, or edema Neuro-somnolent, cannot assess Psych-somnolent, cannot assess Results & Data Results & Data Vital Signs (Past 12 Hours) Vital Signs O2 Del Method O2 Flow Rate 10/09/24 07:32 Nasal Cannula 2 Laboratory Results 10/04/24 04:40 10/04/24 04:40 PG Care Time/CCT Total # of Minutes Spent Total Time Spent with Patient: Total time spent is greater than 50% in coordination of care (as documented) at patient's floor/unit and/or counseling patient: Coding Level of Care Code 50201 SUB INP/OBS CARE 2/35MIN Diagnoses Sepsis A41.9
[2024-10-09] MEDS: REMOVE LIDODERM PATCH SCH (21:30)
[2024-10-09] MEDS: MICONAZOLE NITRATE POWDER 85 GM EXT PRN (23:09)
--- NOTE | 2024-10-10 10:51 | Hospitalist Progress Note ---
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 After discussions on 10/07 it is clear the patient is going to continue on comfort care measures at the time of discharge to [facility] care. Discussions about how to help Yamel emotionally cope with her dying time we brought up the idea of a balancer palliative care team has given her sister information on how to engage with the balancer. 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 Recently treated with vasopressors and transferred to the ICU for sepsis/distributive shock combined with adrenal insufficiency. 10/04 transition to BALANCER after discussion with ICU and desire to withdraw aggressive interventions including vasopressors - 10/05: Discussed her blood culture results 10/03 showing Staph epidermidis with MEC a resistance PCR positive. If patient did have gram-positive bacteremia we would need to treat until cultures are clear and remove her line this is not within her spirit of her comfort care discussion. Heart failure with normalized EF Previously with nonischemic cardiomyopathy related to cancer treatments, at that time reduced ejection fraction, subsequently normalized since 2021 Last echo 05/2024 with LVSF normal, moderately dilated RV, borderline MV, moderate TR No chest pain. Troponin was uptrending likely from critical illness and sepsis with MSOD Transitioned to BALANCER Metastatic breast cancer ER/UT positive HER2/eddie negative breast cancer with mets to bone. C/B lower extremity DVT 02/2021 on Eliquis Most recently on cycle #22 of Enhertu treatment. Steroid pretreatment before these. Last treatment was 2-3 weeks ago . Was previously on Xgeva however this was held History of DVT/PE Anticoagulation held with transition to BALANCER Ostomy Status - 2/2 Diverticular perforation ~6 years ago - Ostomy intact we will try to achieve pain control with oral oxycodone liquid and continue parenteral morphine for backup if this dose is not appropriate. At this time before transition with this patient to be in a comfortable state. Her pain is escalated over the last 24 hours and subsequently she continues additional in hospital care Plan Eventual discharge to [facility] care with hospice once pain is controlled Admission and Anticipated Discharge Date Admission Date: October 03, 2024 Subjective Awake but lethargic. Pain seems to be well-controlled. Sister is at the bedside. Family is requesting that she be hospitalized through the weekend. Early next week she will go to [facility] care with [facility] hospice. Review of Systems 2 Review of Systems: The patient is unable to answer any questions regarding review of systems at this time Physical Exam 2 Physical Exam: General-awake but lethargic no fever HEENT-head atraumatic and normocephalic Neck-no lymphadenopathy or thyromegaly, trachea midline Chest-diminished breath sounds bilaterally from anterior approach. No rales, wheezing or rhonchi Cardiac-regular rate and rhythm, normal S1 and S2 Abdomen-normal bowel sounds, no hepatosplenomegaly Extremities-no cyanosis, clubbing, or edema Neuro-generalized weakness. No apparent focal deficits Psych-lethargic. Flat affect Results & Data Results & Data Vital Signs (Past 12 Hours) Vital Signs O2 Del Method O2 Flow Rate 10/10/24 08:00 Nasal Cannula 2 Laboratory Results 10/04/24 04:40 10/04/24 04:40 PG Care Time/CCT Total # of Minutes Spent Total Time Spent with Patient: Total time spent is greater than 50% in coordination of care (as documented) at patient's floor/unit and/or counseling patient: Coding Level of Care Code 51515 SUB INP/OBS CARE 2/35MIN Diagnoses Sepsis A41.9
--- NOTE | 2024-10-10 11:47 | Palliative Care Progress Note ---
Date of Service October 10, 2024 Assessment & Plan (1) Palliative care by specialist: Plan: Palliative care will continue to follow for ongoing EOL pt care and family support. 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 (3) Cancer related pain: Plan: Pt states pain is now well managed. Noted the expected decrease in PRN use with increased long acting opiate dose. She c/o generalized back pain but mainly bothered by constant BLE aching pains, both improved today. Pt reports better pain management with oral oxycodone than with morphine. No changes in opiate analgesia regime at this time. Continue Oxycontin to 15mg PO q12h TUNDE Continue Oxycodone IR 10mg Q6h PRN for BTP Last 24h hour OMEs: 95 (previous 24hr 67.5 OME) Morphine 5 mg x1 = 5 OME oxycodone 60 mg = 90 OME Other palliative medications over past 24hr none Plan as above. COOK RESTAURANT, pending discharge back to [facility] for ongoing hospice care. Admission and Anticipated Discharge Date Admission Date: October 03, 2024 Subjective Assessed pt at bedside, no visitors present. Pt more awake today, remains lucid. She states her pain is currently well managed and she slept "really well". NAD on 2L via AR Review of Systems Gastrointestinal: poor appetite Musculoskeletal: generalized back pain, BLE with constant ache Physical Exam Constitutional: WD/WN, vitals as above + obese, cooperative and comforta ble; no acute distress Eyes: PERRL, conjunctivae normal, anicteric sclerae Respiratory: normal respiratory effort, lungs clear to auscultation Gastrointestinal (Abdomen): normal bowel sounds, soft, nontender, no hepatosplenomegaly Skin: no rashes, warm and dry Neurologic: PERRL, EOMI, accommodation nl, no face palsy, no dysarthria Psychiatric: A+Ox3, euthymic affect Results & Data Vital Signs (Past 12 Hours) Vital Signs O2 Del Method O2 Flow Rate 10/10/24 08:00 Nasal Cannula 2 Laboratory Results No further labs or diagnostics in concert with comfort directed care. Diagnostic Findings No further labs or diagnostics in concert with comfort directed care. Medications Administered Current Inpatient Medications Glycopyrrolate (Glycopyrrolate 0.2 Mg/Ml Vial) 0.4 mg IV Q4H PRN PRN Reason: Rattling Secretions or Pulm Congestion Stop: 11/03/24 08:44 Last Admin: 10/09/24 20:14 Dose: 0.4 mg Lidocaine (Lidocaine 5% 1 Patch) 1 patch TD QAM [facility] Stop: 11/08/24 08:59 Last Admin: 10/10/24 08:59 Dose: Not Given Linezolid (Linezolid 600 Mg Tab) 600 mg PO BID [facility] Stop: 10/10/24 20:59 Last Admin: 10/10/24 09:00 Dose: Not Given Lorazepam (Lorazepam 2 Mg/1 Ml Vial) 0.5 mg IV Q4H PRN PRN Reason: Anxiety/Agitation Stop: 11/03/24 08:44 Last Admin: 10/07/24 21:54 Dose: 0.5 mg Lorazepam (Lorazepam 0.5 Mg Tab) 0.5 mg PO Q4H PRN PRN Reason: Anxiety/Agitation Stop: 11/06/24 10:38 Last Admin: 10/08/24 20:15 Dose: 0.5 mg Miconazole Nitrate (Miconazole Nitrate Powder 85 Gm) 1 appln EXT BID PRN PRN Reason: Affected Skin Folds Stop: 11/08/24 19:30 Last Admin: 10/10/24 05:23 Dose: 1 appln Miscellaneous (Remove Lidoderm Patch) 1 each N/A DAILY@2100 [facility] Stop: 11/08/24 20:59 Last Admin: 10/09/24 21:30 Dose: 1 each Morphine Sulfate (Morphine Sulfate 10 Mg/0.5 Ml Udp) 5 mg PO Q2H PRN PRN Reason: Pain or Respiratory Distress Stop: 10/21/24 10:38 Last Admin: 10/09/24 07:24 Dose: 5 mg Ondansetron HCl (Ondansetron Inj 2 Mg/Ml 2 Ml Vial) 4 mg IV Q4H PRN PRN Reason: Nausea &/or Vomiting Stop: 11/03/24 08:44 Ondansetron HCl (Ondansetron 4 Mg Od Tab) 4 mg SL Q4H PRN PRN Reason: Nausea &/or Vomiting Stop: 11/06/24 10:38 Oxycodone HCl (Oxycodone Hcl 15 Mg Tabcr (Oxycontin)) 15 mg PO Q12H [facility] Stop: 10/23/24 08:59 Last Admin: 10/10/24 09:00 Dose: 15 mg Oxycodone HCl (Oxycodone Hcl Soln 5 Mg/5 Ml Udc) 10 mg PO Q4H PRN PRN Reason: Pain Stop: 10/23/24 08:57 PG Care Time/CCT Total # of Minutes Spent Total Time Spent with Patient: Total time spent is greater than 50% in coordination of care (as documented) at patient's floor/unit and/or counseling patient: Coding [place] [address] SUB INP/OBS CARE 2/35MIN Patient Type Established History Expanded Problem Focused Exam Expanded Problem Focused Medical Decision Making Moderate Complexity Diagnoses Palliative care by specialist Z51.5 Need for comfort care Cancer related pain G89.3
--- NOTE | 2024-10-11 11:45 | Hospitalist Progress Note ---
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 After discussions on 10/07 it is clear the patient is going to continue on comfort care measures at the time of discharge to [facility] care. Discussions about how to help Yamel emotionally cope with her dying time we brought up the idea of a interior design faculty member palliative care team has given her sister information on how to engage with the interior design faculty member. It was agreeable to try oral oxycodone to try to have a more prolonged analgesic effect over the IV morphine but the IV morphine is still available for breakthrough pain Glycopyrrolate on-call if needed Sepsis, UTI, ?Staph Epi bacteremia, multiorgan system dysfunction unclear that this is the exact route delivery driver I believe sepsis has been ruled out her blood cultures are likely a contaminant we will however complete treatment with linezolid orally for the remainder of a 7-day course CTA/P: Extensive multifocal osseous disease. Recently treated with vasopressors and transferred to the ICU for sepsis/distributive shock combined with adrenal insufficiency. 10/04 transition to SLEEVE WHEEL MAKER after discussion with ICU and desire to withdraw aggressive interventions including vasopressors - 10/05: Discussed her blood culture results 10/03 showing Staph epidermidis with MEC a resistance PCR positive. If patient did have gram-positive bacteremia we would need to treat until cultures are clear and remove her line this is not within her spirit of her comfort care discussion. Heart failure with normalized EF Previously with nonischemic cardiomyopathy related to cancer treatments, at that time reduced ejection fraction, subsequently normalized since 2021 Last echo 05/2024 with LVSF normal, moderately dilated RV, borderline MV, moderate TR No chest pain. Troponin was uptrending likely from critical illness and sepsis with MSOD Transitioned to SLEEVE WHEEL MAKER Metastatic breast cancer ER/MS positive HER2/eddie negative breast cancer with mets to bone. C/B lower extremity DVT 02/2021 on Eliquis Most recently on cycle #22 of Enhertu treatment. Steroid pretreatment before these. Last treatment was 2-3 weeks ago . Was previously on Xgeva however this was held History of DVT/PE Anticoagulation held with transition to SLEEVE WHEEL MAKER Ostomy Status - 2/2 Diverticular perforation ~6 years ago - Ostomy intact we will try to achieve pain control with oral oxycodone liquid and continue parenteral morphine for backup if this dose is not appropriate. At this time before transition with this patient to be in a comfortable state. Her pain is escalated over the last 24 hours and subsequently she continues additional in hospital care Plan Eventual discharge to [facility] care with hospice hopefully early next week Admission and Anticipated Discharge Date Admission Date: October 03, 2024 Subjective The patient is awake. No acute distress. No significant change in clinical status. Review of Systems 2 Review of Systems: The patient is unable to answer any questions regarding review of systems at this time Physical Exam 2 Physical Exam: General-awake but lethargic no fever HEENT-head atraumatic and normocephalic Neck-no lymphadenopathy or thyromegaly, trachea midline Chest-diminished breath sounds bilaterally from anterior approach. No rales, wheezing or rhonchi Cardiac-regular rate and rhythm, normal S1 and S2 Abdomen-normal bowel sounds, no hepatosplenomegaly Extremities-no cyanosis, clubbing, or edema Neuro-generalized weakness. No apparent focal deficits Psych-lethargic. Flat affect Results & Data Results & Data Laboratory Results 10/04/24 04:40 10/04/24 04:40 PG Care Time/CCT Total # of Minutes Spent Total Time Spent with Patient: Total time spent is greater than 50% in coordination of care (as documented) at patient's floor/unit and/or counseling patient: Coding Level of Care Code 46925 SUB INP/OBS CARE 2/35MIN Diagnoses Sepsis A41.9
--- NOTE | 2024-10-12 14:38 | Hospitalist Progress Note ---
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 After discussions on 10/07 it is clear the patient is going to continue on comfort care measures at the time of discharge to [facility] care. Discussions about how to help Yamel emotionally cope with her dying time we brought up the idea of a senior data mining analyst palliative care team has given her sister information on how to engage with the senior data mining analyst. - Roxanol orally for pain control Sepsis, UTI, ?Staph Epi bacteremia, multiorgan system dysfunction unclear that this is the exact professional driver I believe sepsis has been ruled out her blood cultures are likely a contaminant we will however complete treatment with linezolid orally for the remainder of a 7-day course CTA/P: Extensive multifocal osseous disease. Recently treated with vasopressors and transferred to the ICU for sepsis/distributive shock combined with adrenal insufficiency. 10/04 transition to TENSION MACHINE OPERATOR after discussion with ICU and desire to withdraw aggressive interventions including vasopressors - 10/05: Discussed her blood culture results 10/03 showing Staph epidermidis with MEC a resistance PCR positive. If patient did have gram-positive bacteremia we would need to treat until cultures are clear and remove her line this is not within her spirit of her comfort care discussion. Heart failure with normalized EF Previously with nonischemic cardiomyopathy related to cancer treatments, at that time reduced ejection fraction, subsequently normalized since 2021 Last echo 05/2024 with LVSF normal, moderately dilated RV, borderline MV, moderate TR No chest pain. Troponin was uptrending likely from critical illness and sepsis with MSOD Transitioned to TENSION MACHINE OPERATOR Metastatic breast cancer ER/AK positive HER2/eddie negative breast cancer with mets to bone. C/B lower extremity DVT 02/2021 on Eliquis Most recently on cycle #22 of Enhertu treatment. Steroid pretreatment before these. Last treatment was 2-3 weeks ago . Was previously on Xgeva however this was held History of DVT/PE Anticoagulation held with transition to TENSION MACHINE OPERATOR Ostomy Status - 2/2 Diverticular perforation ~6 years ago - Ostomy intact Hopeful discharge to [facility] care with hospice tomorrow, October 13 Plan Eventual discharge to [facility] care with hospice hopefully early next week Admission and Anticipated Discharge Date Admission Date: October 03, 2024 Subjective Lethargic. She is now on Roxanol orally as needed. Oxycodone has been discontinued. Hopeful discharge to [place] [facility] with hospice tomorrow, October 13 Review of Systems 2 Review of Systems: The patient is unable to answer any questions regarding review of systems at this time Physical Exam 2 Physical Exam: General-awake but lethargic. No fever HEENT-head atraumatic and normocephalic Neck-no lymphadenopathy or thyromegaly, trachea midline Chest-diminished breath sounds bilaterally from anterior approach. No rales, wheezing or rhonchi Cardiac-regular rate and rhythm, normal S1 and S2 Abdomen-normal bowel sounds, no hepatosplenomegaly Extremities-no cyanosis, clubbing, or edema Neuro-generalized weakness. No apparent focal deficits Psych-lethargic. Flat affect Results & Data Results & Data Vital Signs (Past 12 Hours) Vital Signs O2 Del Method O2 Flow Rate 10/12/24 08:55 Nasal Cannula 2 Laboratory Results 10/04/24 04:40 10/04/24 04:40 PG Care Time/CCT Total # of Minutes Spent Total Time Spent with Patient: Total time spent is greater than 50% in coordination of care (as documented) at patient's floor/unit and/or counseling patient: Coding Level of Care Code 58278 SUB INP/OBS CARE 2/35MIN Diagnoses Sepsis A41.9
--- NOTE | 2024-10-13 11:07 | Palliative Care Progress Note ---
Date of Service October 13, 2024 Assessment & Plan (1) Palliative care by specialist: Plan: Palliative care will continue to follow for ongoing EOL pt care and family support. (2) Need for comfort care: Plan: Pt transitioned to STAFF DEVELOPMENT NURSE on 10/04/24. (3) Cancer related pain: Plan: Pt c/o generalized back pain but mainly bothered by constant BLE aching pains. Pt states pain not well managed but she has refused scheduled pain meds and does not request PRNs. Pt states that pain managed better with oral oxycodone than with morphine. Encouraged pt to verbalize need for analgesics and accept medications when offered. Pt to be discharged back to [facility] today. No changes in opiate analgesia regime at this time. Continue Oxycontin to 15mg PO q12h TUNDE Continue Oxycodone IR 10mg Q6h PRN for BTP Plan as above. STAFF DEVELOPMENT NURSE, pending discharge back to [facility] for ongoing hospice care. Admission and Anticipated Discharge Date Admission Date: October 03, 2024 Subjective Assessed pt at bedside, her sister Tg was present. Pt drowsy today, remains arousable and lucid. She states her pain not currently well managed, but she does not wish to have PRN medications at this time. She states that her pain is well managed if she is not being moved. NAD on room air. Review of Systems Gastrointestinal: poor appetite Musculoskeletal: generalized back pain, BLE with constant ache Physical Exam Constitutional: WD/WN, vitals as above + obese, cooperative and c omfortable; no acute distress Eyes: PERRL, conjunctivae normal, anicteric sclerae Respiratory: normal respiratory effort, lungs clear to auscultation Gastrointestinal (Abdomen): normal bowel sounds, soft, nontender, no hepatosplenomegaly Skin: no rashes, warm and dry Neurologic: PERRL, EOMI, accommodation nl, no face palsy, no dysarthria Psychiatric: A+Ox3, euthymic affect Results & Data Vital Signs (Past 12 Hours) Vital Signs O2 Del Method O2 Flow Rate 10/13/24 07:28 Nasal Cannula 2 Laboratory Results No further labs or diagnostics in concert with comfort directed care. Diagnostic Findings No further labs or diagnostics in concert with comfort directed care. Medications Administered Current Inpatient Medications Glycopyrrolate (Glycopyrrolate 0.2 Mg/Ml Vial) 0.4 mg IV Q4H PRN PRN Reason: Rattling Secretions or Pulm Congestion Stop: 11/03/24 08:44 Last Admin: 10/09/24 20:14 Dose: 0.4 mg Lorazepam (Lorazepam 2 Mg/1 Ml Vial) 0.5 mg IV Q4H PRN PRN Reason: Anxiety/Agitation Stop: 11/03/24 08:44 Last Admin: 10/13/24 10:21 Dose: 0.5 mg Lorazepam (Lorazepam 0.5 Mg Tab) 0.5 mg PO Q4H PRN PRN Reason: Anxiety/Agitation Stop: 11/06/24 10:38 Last Admin: 10/08/24 20:15 Dose: 0.5 mg Miconazole Nitrate (Miconazole Nitrate Powder 85 Gm) 1 appln EXT BID PRN PRN Reason: Affected Skin Folds Stop: 11/08/24 19:30 Last Admin: 10/10/24 05:23 Dose: 1 appln Morphine Sulfate (Morphine Sulfate 10 Mg/0.5 Ml Udp) 5 mg PO Q2H PRN PRN Reason: Pain or Respiratory Distress Stop: 10/21/24 10:38 Last Admin: 10/13/24 13:39 Dose: 5 mg Ondansetron HCl (Ondansetron Inj 2 Mg/Ml 2 Ml Vial) 4 mg IV Q4H PRN PRN Reason: Nausea &/or Vomiting Stop: 11/03/24 08:44 Ondansetron HCl (Ondansetron 4 Mg Od Tab) 4 mg SL Q4H PRN PRN Reason: Nausea &/or Vomiting Stop: 11/06/24 10:38 PG Care Time/CCT Total # of Minutes Spent Total Time Spent with Patient: Total time spent is greater than 50% in coordination of care (as documented) at patient's floor/unit and/or counseling patient: Coding Level of Care Code 33771 SUB INP/OBS CARE 2/35MIN Diagnoses Palliative care by specialist Z51.5 Need for comfort care Cancer related pain G89.3
--- NOTE | 2024-10-13 13:22 | Discharge Summary ---
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 She required vasopressors and had multiorgan system dysfunction. She was treated initially in the ICU and eventually transition to comfort measures only after discussion with patient's desire to withdraw aggressive interventions including vasopressors. Appreciate palliative medicine consultation. - Continue Roxanol as needed pain or shortness of breath - Continue lorazepam as needed anxiety or agitation - Bowel regimen as needed -She is enrolling in hospice at the nursing facility after discharge # Chronic heart failure with normalized EF-she has anasarca on discharge secondary to severe protein calorie malnutrition, metastatic cancer, and critical illness Previously with nonischemic cardiomyopathy related to cancer treatments, at that time reduced ejection fraction, subsequently normalized since 2021 Last echo 05/2024 with LVSF normal, moderately dilated RV, borderline MV, m oderate TR No chest pain. Troponin was uptrending likely from critical illness and sepsis with MSOD Transitioned to INVOICING SPECIALIST and all cardiac related medications discontinued #Metastatic breast cancer/history of DVT/PE ER/AR positive HER2/eddie negative breast cancer with mets to bone. Also with a history of lower extremity DVT 02/2021 on Eliquis. Most recently on cycle #22 of Enhertu treatment. Steroid pretreatment before these. Last treatment was 2-3 weeks prior to admission. Was previously on Xgeva however this was held - She is now on comfort measures only and her Eliquis has been discontinued #Ostomy Status- 2/2 Diverticular perforation ~6 years ago - Ostomy intact Disposition-medically stable for discharge to group home with hospice Notes For Next Care Provider Medication Changes From Visit See list Admission HPI Per Admitting Provider Yamel is a 68-year-old female with a past medical history of breast cancer s/p left breast mastectomy 1994, right prophylactic total mastectomy, PE 2015, enlarging mediastinal/hilar lymphadenopathy 2023 and skeletal metastatic disease 2023 started on Enhertu 06/21/2023 with extensive bony metastatic disease redemonstrated 05/2023 and palliative radiation of the right shoulder 11/2023, ostomy status due to prior proved diverticulitis who presents with worsening leukocytosis, hypotension, and suspected urosepsis. She reports she has had around 9 to 10 days of dysuria. Was diagnosed with UTI as an outpatient and was placed on Bactrim and levofloxacin. She did not improve, has had uptrending leukocytosis although no fevers. Blood pressure is normally ~90s-low 100s systolic however she has been hypotensive more so in the last 24 hours, feeling poorly, with ongoing polyuria that has not improved --> was referred to the ER. Denies chills/rigors. Denies flank pain. Denies abdominal pain. She is short of breath moving around in bed. She denies chest pain at any point. She reports she does have a history of failure previously on Lasix but this was discontinued due to rising renal function. Denies heart attack/MD. Last echo was with normal EF. (On chart review does have history of nonischemic HFrEF, subsequently normalized) Does not have a home oxygen requirement. Was placed on 3 L for hypoxia, uptitrated to 4L Denies fevers and chills, notes her only UTI symptom has been polyuria She does have a port. She has not had any pain warmth or tenderness overlying her port site Denies abdominal pain. Ostomy is functioning normally without any change in output Denies cuts falls, lacerations and injuries. Denies painful wounds/ulcers Denies antibiotic allergies Former tobacco use in remission. Denies alcohol use. DNR/DNI. She is okay with vasopressors, but if she were to further deteriorate she would not want any further escalation of care beyond this. Discharge Exam Constitutional WD/WN, vitals as above Respiratory normal respiratory effort Cardiovascular Extremities: + edema (3+ pitting edema to the thighs bilaterally) Psychiatric Orientation: alert (Drowsy but answers questions), oriented to person and oriented to place Genitourinary Full catheter in place draining minimal yellow urine Discharge Plan Discharge Items Patient Disposition: Transfer [facility] Reason For Visit: SEPSIS, UTI Discharge Diagnosis: Sepsis, UTI Metastatic breast cancer Cancer-related pain Condition on Discharge: Fair Activity: As commented below Lifting: None Bathing: No limitations Exercise/Sports: As tolerated Non-emergency contact: Primary Care Provider Call non-emergency contact if: you have any medication questions, your symptoms worsen and your pain is not controlled Follow-up/Referrals: [facility] [Primary Care Provider] - [facility] [Non-Staff] - Diet: Other - See Diet Comment Diet Comment: Food for comfort as tolerated/requested Addtl Attending Provider Instructions: You were admitted with septic shock and a urinary tract infection which was treated. Because of your metastatic breast cancer, you decided to pursue comfort measures only. You can continue taking morphine as needed for pain or shortness of breath, lorazepam as needed for anxiety or agitation. Your hospice agency can modify any of these medications for comfort as needed in the future. A lot of your regular medications were discontinued and less they provide comfort i.e.-continuing your omeprazole for acid reflux. Pending Studies at Discharge: No Stand-Alone Forms: My [email or web address] Application Skilled Items Patient informed of condition?: Yes DNR: Yes Discharge Level of Care: Skilled Communicable Disease: No Discharge Prognosis: Deteriorating Lines: None Urinary Catheter: Yes Medications and DC Order Prescriptions: New morphine concentrate 100 mg/5 mL (20 mg/mL) solution 5 mg PO Q2H PRN (Reason: pain) Qty: 15 0RF lorazepam 2 mg/mL concentrate 1 mg PO Q6H PRN (Reason: anxiety/cancer related restlessness) Qty: 30 0RF Continued Fleet Enema 19-7 gram/118 mL enema 118 ml AR DAILY PRN (Reason: Constipation) Patient Comments: If no BM after dulcolax (DME) Wheelchair (Manual) Device See Rx Instructions .Route Qty: 1 0RF Rx Instructions: Transport Wheelchair omeprazole 20 mg capsule,delayed release(DR/EC) 20 mg PO QAM Qty: 90 3RF (DME) colostomy bags Misc See Rx Instructions .Route Qty: 15 5RF Rx Instructions: As directed magnesium hydroxide [Milk of Magnesia] 400 mg/5 mL suspension 30 ml PO DAILY PRN (Reason: Constipation) Patient Comments: For no BM for 3 days bisacodyl [Dulcolax (bisacodyl)] 10 mg Suppository 10 mg AR DAILY PRN (Reason: Constipation) diclofenac sodium 1 % Gel 2 g TOPICAL QID Rx Instructions: apply to single elbow, wrist or hand; for hand includes palm/fingers/back of hand ondansetron HCl [Zofran] 4 mg Tablet 4 mg PO Q6H PRN (Reason: N/V) Discontinued atorvastatin 10 mg tablet 10 mg PO DAILY methyl salicylate-menthol Cream 1 applic topical BID PRN (Reason: Pain) Eliquis 2.5 mg tablet 2.5 mg PO BID loperamide [Imodium A-D] 2 mg Tablet 2 mg PO Q4H PRN (Reason: Diarrhea) carvedilol 3.125 mg tablet 3.125 mg PO BIDM Rx Instructions: must administer with a meal/food magnesium oxide 400 mg (241.3 mg magnesium) tablet 800 mg PO BIDM gabapentin 300 mg capsule 300 mg PO QID Rx Instructions: 300 mg PO QID (AT 6AM, 12PM, 4PM, AND 8PM) eucalyptus-menthol Lozenge 1 esteban MUCOUS MEMBRANE UD PRN (Reason: Cough) ferrous sulfate 325 mg (65 mg iron) Tablet 325 mg PO QAM folic acid 1 mg Tablet 1 mg PO QAM sulfamethoxazole-trimethoprim 400-80 mg tablet 1 tab PO BID Rx Instructions: start 09/28 7 days buspirone 10 mg tablet 10 mg PO TID PRN (Reason: anxiety ) oxycodone 5 mg capsule 5 mg PO Q6H PRN (Reason: Pain, Moderate) levofloxacin 500 mg tablet 500 mg PO .DAILY FOR 7 DAYS oxycodone 10 mg tablet 10 mg PO Q6H PRN (Reason: Pain, Severe) fentanyl 37.5 mcg/hour patch 72 hour 1 patch topical .Q 3 DAYS Calcium + D 1 tab PO QID Rx Instructions: 1000/20 strength heparin lock flush (porcine) 5 ml IV DAILY Rx Instructions: every shift paroxetine HCl 30 mg tablet 30 mg PO DAILY simethicone 125 mg Capsule 125 mg PO Q8H PRN (Reason: ABD. DISCOMFORT) acetaminophen [Tylenol Ex Str Rapid Release] 500 mg Tablet 1,000 mg PO Q8H PRN (Reason: Pain) sodium chloride 0.9 % Solution 50 ml IV DAILY promethazine [Phenergan] 25 mg/mL Solution 25 mg IM Q6H PRN (Reason: N/V) mirtazapine [Remeron] 15 mg Tablet 15 mg PO DAILY sodium chloride 0.9 % (flush) [Saline Flush] Syringe 10 ml IV DAILY Rx Instructions: administer before and after IV drug administration as part of [facility] protocol cyanocobalamin (vitamin B-12) 1,000 mcg/mL Kit 1,000 mcg IM .FIRST OF MONTH Discharge Orders: Discharge Order (Routine); Ordered 10/13/24 Ordered By: Sharon Hampton Admission Data Admit Date/Time: 10/03/24 16:25 Attending Provider: Sharon Hampton Admit Provider: Armand Arnold Primary Care Provider: [facility] Other Providers: Armand Arnold; Camron Rivera; Carla Knowles; Jacqueline Barroso; [facility]; [facility] Hospital Stay Data Consultations 10/03/24 15:14 ED Decision to Admit Stat 10/03/24 19:15 Consult Records Management Analyst Routine 10/04/24 08:45 Consult Palliative Care Routine Diagnostic Imagining Performed 10/03/24 13:09 CT Abd and Pelvis [CT abd pelvis wo con] Stat Pending Results Patient Have Any Pending Studies at Discharge: No Discharge Instructions Given to Patient (Per Discharging Provider) You were admitted with septic shock and a urinary tract infection which was treated. Because of your metastatic breast cancer, you decided to pursue comfort measures only. You can continue taking morphine as needed for pain or shortness of breath, lorazepam as needed for anxiety or agitation. Your hospice agency can modify any of these medications for comfort as needed in the future. A lot of your regular medications were discontinued and less they provide comfort i.e.-continuing your omeprazole for acid reflux. Total Time Total Time Spent Total Time Spent (In Minutes): 35 minutes Total Time Includes: Examination of the Patient, Discharge Planning, Medication Reconciliation and Communication With Other Providers (Palliative medicine) Coding Level of Care Code 69626 INP/OBS DISCH >30 MIN Diagnoses Sepsis A41.9
== END 2024-10-13 14:25 | DRG 871 ==
LOC: ED 13:01 → 1E 16:25 → SUATTDRO 16:25 → 1E 17:22 → 3E 10-04 19:57
DX: Z87.19 Personal history of other diseases of the digestive system; Z88.6 Allergy status to analgesic agent; N39.0 Urinary tract infection, site not specified; A41.9 Sepsis, unspecified organism; F41.9 Anxiety disorder, unspecified; Z79.01 Long term (current) use of anticoagulants; Z93.3 Colostomy status; Z79.899 Other long term (current) drug therapy; R65.21 Severe sepsis with septic shock; I13.0 Hypertensive heart and chronic kidney disease with heart failure and stage 1 through stage 4 chronic kidney disease, or unspecified chronic kidney disease; Z85.3 Personal history of malignant neoplasm of breast; Z51.5 Encounter for palliative care; Z87.891 Personal history of nicotine dependence; I25.10 Atherosclerotic heart disease of native coronary artery without angina pectoris; D53.9 Nutritional anemia, unspecified; Z17.0 Estrogen receptor positive status [ER+]; J96.01 Acute respiratory failure with hypoxia; N18.9 Chronic kidney disease, unspecified; Z86.718 Personal history of other venous thrombosis and embolism; Z88.8 Allergy status to other drugs, medicaments and biological substances; G89.3 Neoplasm related pain (acute) (chronic); E11.42 Type 2 diabetes mellitus with diabetic polyneuropathy; M85.80 Other specified disorders of bone density and structure, unspecified site; Z90.13 Acquired absence of bilateral breasts and nipples; C79.51 Secondary malignant neoplasm of bone; E78.5 Hyperlipidemia, unspecified; Z86.711 Personal history of pulmonary embolism; F32.A Depression, unspecified; I21.A1 Myocardial infarction type 2; Z66 Do not resuscitate; E27.40 Unspecified adrenocortical insufficiency; I50.32 Chronic diastolic (congestive) heart failure; K21.9 Gastro-esophageal reflux disease without esophagitis; R57.8 Other shock; E43 Unspecified severe protein-calorie malnutrition